=== PATIENT | male | born 1960 | race Caucasian/White ===

== ENCOUNTER 2020-09-17 01:28 | Inpatient (IN) | payer BC ==
[2020-09-17] MEDS ORDERED: ETOMIDATE 2 MG/ML 10 ML VIAL IVP STA (01:29)
[2020-09-17] MEDS ORDERED: SUCCINYLCHOLINE CHLORIDE VIAL 200 MG/10 ML VIAL IV ONE (01:30)
[2020-09-17] MEDS ORDERED: ASPIRIN 300 MG SUPP RECTAL STA (01:38)
[2020-09-17] MEDS ORDERED: MIDAZOLAM 1 MG/ML 5 ML VIAL IV STA ×2 (01:40→02:05)
[2020-09-17] MEDS ORDERED: ASPIRIN 81 MG PO STA (01:41)
[2020-09-17] MEDS ORDERED: NITROGLYCERIN SL TABS 0.4 MG TAB SUBLINGUAL PRN (01:41)
[2020-09-17] MEDS ORDERED: LABETALOL 5 MG/ML VIAL MDV IVP STA (01:46)
--- NOTE | 2020-09-17 01:47 | ED ---
CPR HPI - General Chief Complaint: Cardiac Arrest/CPR Stated Complaint: STEMI Time Seen by Provider: 09/17/20 01:41 Source: EMS, RN notes reviewed, old records reviewed Mode of arrival: EMS Limitations: altered mental status, physical limitation - History of Present Illness Initial Comments: This is a 59-year-old male DF for evaluation patient Dese for evaluation of unresponsive episode cardiac arrest ventricular fibrillation arrest with epi given prior to hospital arrival. Hospital arrival patient is actively breathing with pulse. History obtained from EMS and then later patient's , who states patient was acting fine and normal all day she went to bed with him and he woke up having difficulty breathing having noisy breathing which prompted her to call the ambulance and then he went unresponsive. When she was on the phone with ambulance she did begin bystander CPR at their discretion MD Complaint: found unresponsive, collapsed during rest, unknown (Ventricular fibrillation arrest) -: minute(s) Place: home Bystander CPR Performed: Yes AED Applied by Bystander/Utility Service Worker: Yes Shock Advised: Yes Number of Shocks Delivered: 3 Initial Findings in the Field: unresponsive, no respirations, agonal, no pulse, VTACH/VFIB ROSC in the Field: Yes Associated Injuries: No Associated Symptoms: shortness of breath, sweating Treatments Prior to Arrival: BMV, other airway device, epinephrine mgs # (2) - Related Data Allergies Allergy/AdvReac Type Severity Reaction Status Date / Time Unable to Assess Allergy Verified 09/17/20 01:35 Review of Systems ROS Statement: Those systems with pertinent positive or pertinent negative responses have been documented in the HPI. ROS Other: All systems not noted in ROS Statement are negative. Past Medical History Past Medical History: No Reported History History of Any Multi-Drug Resistant Organisms: Unobtainable Past Surgical History: No Surgical Hx Reported Past Psychological History: Unable to Obtain Smoking Status: Unknown if ever smoked Past Alcohol Use History: Unable to Obtain Past Drug Use History: Unable to Obtain General Exam Limitations: altered mental status, physical limitation General appearance: lethargic, obtunded, in distress, obese Head exam: Present: atraumatic, normocephalic, normal inspection Eye exam: Present: normal appearance, PERRL, EOMI. Absent: scleral icterus, conjunctival injection, periorbital swelling ENT exam: Present: normal exam, mucous membranes moist Neck exam: Present: normal inspection. Absent: tenderness, meningismus, lymphadenopathy Respiratory exam: Present: respiratory distress, rhonchi, decreased breath sounds, prolonged expiratory, other (Agonal respirations). Absent: wheezes, rales, stridor Cardiovascular Exam: Present: normal rhythm, tachycardia, normal heart sounds. Absent: systolic murmur, diastolic murmur, rubs, gallop, clicks GI/Abdominal exam: Present: soft, normal bowel sounds. Absent: distended, tenderness, guarding, rebound, rigid Extremities exam: Present: normal inspection, full ROM, normal capillary refill. Absent: tenderness, pedal edema, joint swelling, calf tenderness Back exam: Present: normal inspection Neurological exam: Present: alert, oriented X3, CN II-XII intact Psychiatric exam: Present: normal affect, normal mood Skin exam: Present: warm, dry, intact, normal color. Absent: rash Course - Reevaluation(s) Reevaluation #1: 09/17/20 01:59 Medical record is reviewed Reevaluation #2: 09/17/20 02:00 STEMI paged on prehospital EKG as well as history of ventricular fibrillation cardiac arrest 09/17/20 02:25 Patient is sent to CT to rule out dissection secondary to elevated blood pressure as well as PE for low oxygen levels Reevaluation #3: 09/17/20 02:25 Dr. Antoine did evaluate patient here in the ER Reevaluation #4: 09/17/20 02:26 Spoke with patient's regarding grave prognosis, questions answered 09/17/20 02:40 Patient remains significantly hypoxic here in the ER Procedures - Intubation Sedative: Versed Paralytic: Succinylcholine Laryngoscope: Wilma Size: 4 ET Tube Size: 8 ET Tube Uncuffed: No Tube Secured Location: teeth Tube Placement Confirmation: visualized tube passing through cords, equal breath sounds bilaterally, no breath sounds over epigastrium Patient Tolerated Procedure: well Intubation Complications: none Medical Decision Making - Medical Decision Making 59 male who presents with unresponsive cardiac arrest patient remains hypoxic despite and PEEP. Patient taken to slab polisher for suspected STEMI secondary to ventricular fibrillation - EKG Data -: EKG Interpreted by Me (EKG is sinus tachycardia 108 SD 186 QRS 170 QTc 5) - Radiology Data Radiology results: report reviewed (Chest x-ray shows positive ET tube placement significant CHF, CTA chest CTA is negative for PE or dissection), image reviewed Critical Care Time Critical Care Time: Yes Total Critical Care Time: 35 Disposition Clinical Impression: Cardiac arrest, Ventricular fibrillation, Congestive heart failure, Hypoxia, Respiratory failure, Acute respiratory failure Disposition: ADMITTED IP TO THIS HOSP Condition: Critical Is patient prescribed a controlled substance at d/c from ED?: No
[2020-09-17 01:54] LABS: Glucose,Whole Blood 314 mg/dL (75-99)
--- NOTE | 2020-09-17 01:55 | XR ---
EXAM: XR Chest, 1 View CLINICAL HISTORY: ITS.REASON XR Reason: Cardiac Arrest TECHNIQUE: Frontal view of the chest. COMPARISON: No previous studies. FINDINGS: Lungs: There is prominence of central pulmonary vasculature. There is interstitial prominence. Presumed subsegmental atelectasis versus pneumonia at the left lung base per Pleural space: Unremarkable. No pneumothorax. Heart: There is cardiomegaly. Mediastinum: Unremarkable. Bones/joints: Unremarkable. Tubes, lines and devices: Endotracheal tube is noted in place with its tip at the thoracic inlet. Other findings: There is hypoaeration. IMPRESSION: 1. Hypoaeration. 2. Cardiomegaly. 3. Findings suggestive of congestive heart failure. 4. Endotracheal tube is noted in place in good position.
[2020-09-17] MEDS ORDERED: IV FLUID CONTINUATION 1,000 ML IV ONE (02:04)
[2020-09-17] MEDS ORDERED: FUROSEMIDE 10 MG/ML 10 ML VIAL IV STA (02:04)
[2020-09-17] MEDS ORDERED: NOREPINEPHRINE 8 MG in SODIUM CHLORIDE 0.9% 250 ML IV ONE (02:07)
--- NOTE | 2020-09-17 02:28 | CT ---
EXAMINATION TYPE: CT angio thor/abd pel aorta DATE OF EXAM: 09/17/2020 COMPARISON: None HISTORY: ams, unresponsive, intubated CT DLP: 3258.9 mGycm Automated exposure control for dose reduction was used. CONTRAST: Performed with IV Contrast, patient injected with 100 mL of Isovue 370. There are 3-D post processed images. There is diffuse pulmonary interstitial and airspace edema. There is atelectasis at the lung bases. H eart is moderately enlarged. There is no pericardial effusion. Exam limited slightly by motion. I see no filling defects in the pulmonary arteries. There are no hil ar masses. There is no mediastinal adenopathy. Thoracic aorta is intact. There is 4.2 cm aneurysm of the ascending aorta. There is no dissection. Liver spleen stomach pancreas appear intact. The bile ducts are not dilated. Gallbladder is slightly contracted. There is no adrenal mass. Kidneys show satisfactory contrast opacification. There is no hydronephrosi s. There is no retroperitoneal adenopathy. Ureters are not dilated. There is Dykes catheter in the ur inary bladder. There is no evidence of bladder mass. There is no sign of inguinal hernia. There is arterial flow in the superior mesenteric artery and celiac artery. There is arterial flow in both renal arteries and the iliac and femoral arteries. I see no evidence of hemodynamic stenosis. T here is no dissection. There is no abdominal aortic aneurysm. There is no free fluid in the pelvis. There is no mesenteric edema. There is no ascites or free air. There is no bowel obstruction. There are spondylotic changes in the thoracic and lumbar spine. There is no compression fracture. There is mild lumbar dextroscoliosis. There are spondylotic changes in the thoracic spine. IMPRESSION: No evidence of pulmonary embolism. No aortic dissection. 4.2 cm aneurysm of the ascending aorta. Moderate pulmonary interstitial and airspace edema. Cardiomegaly. This is consistent with congestive heart failure.
[2020-09-17] MEDS ORDERED: SODIUM CHLORIDE 0.9% IV ONE ×2 (02:37)
[2020-09-17] MEDS ORDERED: NOREPINEPHRINE IV ONE ×2 (02:37)
[2020-09-17 02:46] LABS: Basophils # (A) 0.1 k/uL (0-0.2); Basophils % (A) 1 %; Eosinophils # (A) 0.2 k/uL (0-0.7); Eosinophils % (A) 2 %; HCT 44.5 % (39.0-53.0); HGB 15.2 gm/dL (13.0-17.5); Lymphocytes # (A) 2.7 k/uL (1.0-4.8); Lymphocytes % (A) 27 %; MCH 32.5 pg (25.0-35.0); MCHC 34.2 g/dL (31.0-37.0); MCV 95.1 fL (80.0-100.0); Mean Platelet Volume 8.2; Monocytes # (A) 0.1 k/uL (0-1.0); Monocytes % (A) 1 %; Neutrophils # (A) 6.8 k/uL (1.3-7.7); Neutrophils % (A) 68 %; Platelet Count 202 k/uL (150-450); RBC 4.68 m/uL (4.30-5.90); RDW 13.2 % (11.5-15.5)
[2020-09-17] MEDS ORDERED: ASPIRIN 325 MG TAB ONE (02:49)
[2020-09-17 02:53] LABS: Albumin 3.7 g/dL (3.5-5.0); Calcium 8.4 mg/dL (8.4-10.2); Magnesium 2.4 mg/dL (1.6-2.3); Phosphorus 7.6 mg/dL (2.5-4.5); Potassium 3.5 mmol/L (3.5-5.1); Total Bilirubin 0.4 mg/dL (0.2-1.3); Total Protein 6.1 g/dL (6.3-8.2)
[2020-09-17] MEDS ORDERED: LIDOCAINE 1% INJ 10MG/ML (20 ML MDV) SQ ONE (02:54)
[2020-09-17] MEDS: EPINEPHrine 10 ML SYRINGE (0.1 MG/ML) IV ONE ×4 (02:57→03:21)
[2020-09-17] MEDS ORDERED: IOPAMIDOL-370 100ML BTL INJ ONE ×2 (03:09→04:10)
[2020-09-17] MEDS ORDERED: BIVALIRUDIN BOLUS 250 MG/50 ML IV ONE ×2 (03:10→03:40)
[2020-09-17] MEDS ORDERED: BIVALIRUDIN 250 MG in SODIUM CHLORIDE 0.9% 50 ML IV ONE (03:10)
[2020-09-17] MEDS ORDERED: CLOPIDOGREL 75 MG TAB ONE (03:12)
[2020-09-17] MEDS ORDERED: PROPOFOL 10 MG/ML 100 ML VIAL IV ONE (03:13)
[2020-09-17] MEDS ORDERED: PROPRANOLOL 1 MG/ML 1 ML VIAL IV ONE (03:13)
[2020-09-17] MEDS ORDERED: CLOPIDOGREL 75 MG TAB OG-TUBE ONE (03:19)
[2020-09-17] MEDS ORDERED: ASPIRIN 325 MG TAB OG-TUBE ONE (03:19)
[2020-09-17 03:26] LABS: Creatine Kinase MB 3.9 ng/mL (0.0-2.4)
[2020-09-17] MEDS ORDERED: FUROSEMIDE 10 MG/ML 4 ML VIAL ONE (03:27)
[2020-09-17] MEDS ORDERED: FUROSEMIDE 10 MG/ML 4 ML VIAL IV ONE (03:28)
[2020-09-17] MEDS: FUROSEMIDE 100 MG in SODIUM CHLORIDE 0.9% 90 ML IV SCH ×2 (03:28→10:35)
[2020-09-17] MEDS ORDERED: SODIUM CHLORIDE 0.9% 500 ML 500 ML IV ONE (03:30)
[2020-09-17 03:31] LABS: Troponin I 0.238 ng/mL (0.000-0.034)
[2020-09-17 05:03] LABS: Glucose,Whole Blood 128 mg/dL (75-99)
[2020-09-17 05:30] LABS: ABG HCO3 23 mmol/L (21-25); ABG Oxygen Saturation 99.9 % (94-97); ABG PCO2 52 mmHg (35-45); ABG PH 7.26 (7.35-7.45); ABG PO2 233 mmHg (83-108); ABG TCO2 25 mmol/L (19-24); Allen Test Performed? Yes
[2020-09-17 06:04] LABS: Basophils % (A) 0 %; Eosinophils # (A) 0.1 k/uL (0-0.7); Eosinophils % (A) 1 %; HCT 45.2 % (39.0-53.0); HGB 15.4 gm/dL (13.0-17.5); Lymphocytes # (A) 1.3 k/uL (1.0-4.8); Lymphocytes % (A) 12 %; MCHC 34.1 g/dL (31.0-37.0); MCV 93.8 fL (80.0-100.0); Monocytes # (A) 0.6 k/uL (0-1.0); Monocytes % (A) 5 %; Neutrophils # (A) 9.2 k/uL (1.3-7.7); Neutrophils % (A) 81 %; Platelet Count 236 k/uL (150-450); RBC 4.82 m/uL (4.30-5.90); RDW 13.2 % (11.5-15.5); WBC 11.4 k/uL (3.8-10.6)
[2020-09-17 06:19] LABS: INR 1.5 (<1.2); Prothrombin Time 15.4 sec (9.0-12.0)
[2020-09-17 06:21] LABS: C Reactive Protein 0.9 mg/dL (<1.0); Calcium 8.6 mg/dL (8.4-10.2); Total Bilirubin 0.9 mg/dL (0.2-1.3)
[2020-09-17] MEDS ORDERED: NALOXONE 0.4 MG/ML 1 ML VIAL IV PRN (06:24)
[2020-09-17 06:29] LABS: Albumin 3.9 g/dL (3.5-5.0); Potassium 3.8 mmol/L (3.5-5.1); Total Protein 6.5 g/dL (6.3-8.2)
[2020-09-17] MEDS: SODIUM CHLORIDE 0.9% 1,000 ML IV SCH ×4 (06:31→21:41)
[2020-09-17] MEDS ORDERED: HEPARIN SOD,PORK IN 0.45% NACL 25,000 UNIT in 0.45% NACL 1 250ML.BAG IV SCH (06:45)
[2020-09-17 07:00] LABS: Magnesium 2.4 mg/dL (1.6-2.3); Phosphorus 6.6 mg/dL (2.5-4.5)
[2020-09-17] MEDS: HEPARIN SODIUM,PORCINE 12,500 UNIT in DEXTROSE 5% IN WATER 500 ML IV SCH ×2 (07:48)
[2020-09-17 07:55] LABS: ABG Base Excess -2.6 mmol/L; ABG HCO3 23 mmol/L (21-25); ABG Oxygen Saturation 99.2 % (94-97); ABG PCO2 40 mmHg (35-45); ABG PH 7.36 (7.35-7.45); ABG PO2 127 mmHg (83-108); ABG TCO2 24 mmol/L (19-24); Allen Test Performed? Yes
[2020-09-17] MEDS: NOREPINEPHRINE 8 MG in SODIUM CHLORIDE 0.9% 250 ML IV SCH (08:05)
[2020-09-17] MEDS: CHLORHEXIDINE GLUCONATE 15 ML CUP MUCOUS MEM SCH ×2 (09:17→20:49)
[2020-09-17] MEDS: CLOPIDOGREL 75 MG TAB PO SCH (09:17)
[2020-09-17] MEDS: ATORVASTATIN 80 MG TAB PO SCH (09:17)
--- NOTE | 2020-09-17 10:15 | P.CNNES ---
History of Present Illness Consult date: 09/17/20 Requesting physician: Zoë Adhikari Reason for Consult: rule out anoxic encephalopathy History of Present Illness: This is a 59-year-old gentleman who presented to the emergency department on 09/17/2020 via EMS after the patient had a cardiac arrest. Some of the history is obtained from medical record. History is obtained from medical records and patient's nurse. Per the ED note, the notified the ED team that the patient was active in the appropriate and was normal all day and then when she woke him up he was having difficulty breathing and his breathing was "very noisy". As a result she called the ambulance and the patient was unresponsive. Per the patient nurse she stated that the did CPR for 10 minutes prior to ambulance arrival and unsure of how long CPR was performed by ambulance. Per ED note the patient had cardiac arrest with ventricular fibrillation and was give epinephrine prior to arrival to the hospital. The nurse stated he received two shocks and two epinephrine. He was intubated for airway protection. Home medication per EMR is Synthroid, lisinopril/hydrochlorothiazide, meloxicam. He was taken for cardiac cath in our facility and was notified by the primary team he had two cardiac stent and was placed on Impella. Heparin drip was started and the patient was started as well and aspirin 81, Plavix 75. She was given aspirin 300 mg in the ED. Per the nurse, he is on Propofol 40mcg/kg/min and she said once the sedation was off he was moving all extremities and seems somewhat restless. Some other workup in the hospital consisted of: Initial vital signs: Blood pressure of 200/128 with a heart rate of 100 but then the repeated blood pressure is 74/48 with a heart rate of 98. Pulse ox of 71 on mechanical ventilation of a fire 200% then the pulse ox dropped to 65%. Temperature is 99.5 Fahrenheit. Respiratory rate of 18 and the most recent respiratory rate is 24. EKG was reported as suspect arm bleed reversal, interpretation assumes no reversal. Sinus tachycardia. Nonspecific intraventricular block. Abnormal EKG CBC with differential is unremarkable. The most recent white blood cells 11.4 possibly reactive. Troponin is a 0.238 and the most recent troponin is 3.51 Initial POC glucose is 314 which is elevated, creatinine is 1.26 which is also elevated, plasma lactic acid is 4.7 which is elevated that. Phosphorus is 7.6, magnesium is 2.4, AST is 292 and the ALT of 298 which are elevated. CK is 213 which is mildly elevated but not remarkable. Otherwise potassium 3.5, calcium is 8.4 which are normal. Initial coagulation study: PT of 15.4, INR 1.5, PTT of 52.0 and d-dimer is more than 34. He had CT angio of the thorax/abd/pelvis was reported as no evidence of pulmonary embolism. No aortic dissection. 4.2 cm aneurysm of the ascending aor ta. Moderate pulmonary interstitial and airspace edema. Cardiomegaly. This is consistent with congestive heart failure. Review of Systems Review of system is limited but the parent positive and negative aspiration. Past Medical History Past Medical History: No Reported History History of Any Multi-Drug Resistant Organisms: Unobtainable Past Surgical History: No Surgical Hx Reported Past Psychological History: Unable to Obtain Smoking Status: Unknown if ever smoked Past Alcohol Use History: Unable to Obtain Past Drug Use History: Unable to Obtain Medications and Allergies Home Medications Medication Instructions Recorded Confirmed Type Acetaminophen/Diphenhydramine 2 tab PO HS 09/17/20 09/17/20 History [Tylenol PM 500-25mg] Levothyroxine Sodium [Synthroid] 50 mcg PO DAILY 09/17/20 09/17/20 History Lisinopril-Hctz 20-12.5 mg 1 tab PO DAILY 09/17/20 09/17/20 History [Zestoretic 20-12.5] Meloxicam [Mobic] 7.5 mg PO DAILY 09/17/20 09/17/20 History Allergies Allergy/AdvReac Type Severity Reaction Status Date / Time No Known Allergies Allergy Unverified 09/17/20 09:18 Physical Examination - Vital Signs Vital Signs: Vital Signs Temp Pulse Resp BP Pulse Ox 09/17/20 09:00 71 24 88/69 96 09/17/20 08:00 99.5 F 70 24 101/76 97 09/17/20 07:00 72 23 88/63 96 09/17/20 06:00 66 24 92/59 95 09/17/20 05:01 71 18 97 09/17/20 02:05 98 74/48 65 L 09/17/20 01:45 100 200/128 71 L 06/28/21 01:31 71 L Intake and Output 06/27/21 06/28/21 06/28/21 22:59 06:59 14:59 Intake Total 780.7 528.665 Output Total 125 525 Balance 655.7 3.665 Intake: IV 780.7 510 0.9 340 510 Intake, IV Titration 18.665 Amount Norepinephrine 8 mg In 0.702 Sodium Chloride 0.9% 250 ml @ 0.05 MCG/KG/MIN 13. 166 mls/hr IV .[id number] JORDANA Rx#:[id number] propofoL 1,000 mg In 17.963 Empty Bag 1 bag @ Titrate IV .Q0M JORDANA Rx#: [id number] Output: Urine 125 525 Other: Voiding Method Indwelling Catheter Weight 136.078 kg ABP, PAP, CO, CI - Last 8 Hours Arterial Blood Pressure 113/81 Arterial Blood Pressure 103/68 Arterial Blood Pressure 106/74 Arterial Blood Pressure 87/65 GENERAL: The patient is lying in bed, obese and does not seem in acute distress. CHEST: The heart rate is regular rate rhythm. No murmurs to auscultation. Has Impella. LUNG: Clear to auscultation bilaterally no wheezing noted throughout. Not labored breathing. He is intubated and on ventilator. A/c is at 24 but breathing at 26. ABDOMEN/GI: Bowel sounds present in all 4 quadrants. No tenderness to palpation throughout. NEUROLOGICAL: Is limited since is on IV propofol 40mcg/kg/min (briefly turned off for examination) and is intubated on ventilaror . Higher mental function: The patient is comatose GCS 7 (E1, VT1, M5). The patient is not following command or attempting to verbalize. Cranial nerves: I had to manually open the eyes. The primary gaze is midline. The pupils are round, equal and reactive to light. The pupils are around 3-4mm bilaterally. +ve corneal reflex bilaterally. No facial weakness noted. Positive vestibular occuloreflex. Positive gag reflex. Is breathing over the vent. Motor: Gait is deferred because of condition. The strength is hard to assess but with painful stimuli he was moving the left side above gravity and was getting agitated so had to restart propofol. He was frowning over the right to painful stimuli. Good motor stregnth could not be assess because of condition. Normal tone and bulk. No spontaneous movement. Cerebellum: Could not assess. Sensation: He frowns to painful stimuli throughout. Reflexes (right/left): 1+ throughout. Plantars are downgoing bilaterally. Results - Laboratory Findings CBC and BMP: 09/17/20 11:50 09/17/20 05:35 Abnormal Lab Findings: Abnormal Labs 09/17/20 09/17/20 09/17/20 01:45 02:23 02:23 WBC Neutrophils # PT INR APTT D-Dimer ABG pH ABG pCO2 ABG pO2 ABG Total CO2 ABG O2 Saturation BUN 21 H Creatinine 1.26 H Glucose 301 H POC Glucose (mg/dL) 314 H Plasma Lactic Acid Marcos 4.7 H* Phosphorus 7.6 H Magnesium 2.4 H AST 292 H ALT 287 H Lactate Dehydrogenase Creatine Kinase 213 H CK-MB (CK-2) Troponin I Total Protein 6.1 L 09/17/20 09/17/20 09/17/20 02:23 05:01 05:10 WBC Neutrophils # PT INR APTT D-Dimer ABG pH 7.26 L ABG pCO2 52 H ABG pO2 233 H ABG Total CO2 25 H ABG O2 Saturation 99.9 H BUN Creatinine Glucose POC Glucose (mg/dL) 128 H Plasma Lactic Acid Marcos Phosphorus Magnesium AST ALT Lactate Dehydrogenase Creatine Kinase CK-MB (CK-2) 3.9 H Troponin I 0.238 H* Total Protein 09/17/20 09/17/20 09/17/20 05:35 05:35 05:35 WBC Neutrophils # PT 15.4 H INR 1.5 H APTT 52.0 H D-Dimer >34.10 H ABG pH ABG pCO2 ABG pO2 ABG Total CO2 ABG O2 Saturation BUN 25 H Creatinine 1.32 H Glucose 113 H POC Glucose (mg/dL) Plasma Lactic Acid Marcos Phosphorus Magnesium AST 347 H ALT 296 H Lactate Dehydrogenase 2314 H Creatine Kinase CK-MB (CK-2) Troponin I 3.510 H* Total Protein 09/17/20 09/17/20 09/17/20 05:35 05:35 07:47 WBC 11.4 H Neutrophils # 9.2 H PT INR APTT D-Dimer ABG pH ABG pCO2 ABG pO2 127 H ABG Total CO2 ABG O2 Saturation 99.2 H BUN Creatinine Glucose POC Glucose (mg/dL) Plasma Lactic Acid Marcos Phosphorus 6.6 H Magnesium 2.4 H AST ALT Lactate Dehydrogenase Creatine Kinase CK-MB (CK-2) Troponin I Total Protein Assessment and Plan Assessment: * Encephalopathy due to anoxia (cardiac arrest and unsure exact down for, but at least 10 minutes+). Also component of encephalopathy due to medication effect (propofol) and metabolic encpehalopathy (Acute kidney injury, elevated LFT's, elevated sugar). Per nurse once off sedation he is moving all extremities. * Cardiac arrest (initial rhythm is V-fib) * STEMI s/p PCI to circumflex and impella placement * Acute kidney injury * Elevated liver function test (with AST 292 and ALT 287) likely reactive * Elevated sugar * Congestive heart failure * Cardiomegaly Plan: A stat EEG is ordered by the ICU team. I will not start the patient on antiep ileptic drugs unless there is epileptiform discharges or seizure on the EEG. I ordered a stat CT of the head. Per the patient's nurse the patient is the unstable at this moment so I'll attempt to get it's once the patient is more stable. Placed him on Q1 hour neuro checks. Ordered ammonia level. 2-D echo is ordered and is pending. Cardiology is on board. Will defer the rest of the medical management to the ICU team and primary team. The condition is very guarded. The plan is discussed with the primary team and nurse. Thank you for the consultation. Dr. Carlson will take over neurology service tomorrow AM. Fadi Johnson MD Neuro-Hospitalist Time with Patient: Greater than 30
--- NOTE | 2020-09-17 10:30 | P.HPIM ---
History of Present Illness H&P Date: 09/17/20 Chief Complaint: Cardiac arrest 59 year old man with history of HTN, hypothyroidism presented with cardiac arrest in the field. Patient is intubated and sedated status post left heart cath with impella placement, so history is provided by chart review. From my understanding, he obtained approximately 10 minutes CPR in the field, was in V. fib arrest, requiring shocks x3/epi. Patient arrived to the hospital with a pulse and breathing on his own. However, he was quite hypoxic, requiring intubation. EKG demonstrated ST elevation and patient was taken emergently to the Preschool Teacher. While in the operating suite, patient received 2 drug-eluting stents to the OM1, as well as impella for mechanical support. Patient was thereafter placed in the intensive care unit with mechanical ventilation. Initial neurological exam off sedation demonstrated the patient was not fol lowing commands, however, moving all extremities, positive gag, positive cough reflexes. Upon my examination, patient was on the low dose of Levothroid, 40 mics of propofol, and impella support. Mechanical support at before meals, FiO2 40%, PEEP 5, tidal volume 450. Patient was afebrile, blood pressure between 99-100/70-76, heart rate 70. CBC demonstrated mild leukocytosis, d-dimer was greater than 34.1. Chemistries demonstrated acute kidney injury with a creatinine of 1.3, LFTs demonstrate hepatic dysfunction and hepatocellular injury pattern with AST/ALT of 347/296, alkaline phosphatase of 57. Troponin was 3.5. EKG demonstrated sinus tachycardia with left bundle-branch block. Chest x-ray demonstrated cardiomegaly with findings suggestive of congestive heart failure. Review of Systems Review systems could not be completed due to patient being intubated and sedated Past Medical History Past Medical History: No Reported History History of Any Multi-Drug Resistant Organisms: Unobtainable Past Surgical History: No Surgical Hx Reported Past Psychological History: Unable to Obtain Smoking Status: Unknown if ever smoked Past Alcohol Use History: Unable to Obtain Past Drug Use History: Unable to Obtain Medications and Allergies Home Medications Medication Instructions Recorded Confirmed Type Acetaminophen/Diphenhydramine 2 tab PO HS 09/17/20 09/17/20 History [Tylenol PM 500-25mg] Levothyroxine Sodium [Synthroid] 50 mcg PO DAILY 09/17/20 09/17/20 History Lisinopril-Hctz 20-12.5 mg 1 tab PO DAILY 09/17/20 09/17/20 History [Zestoretic 20-12.5] Meloxicam [Mobic] 7.5 mg PO DAILY 09/17/20 09/17/20 History Allergies Allergy/AdvReac Type Severity Reaction Status Date / Time No Known Allergies Allergy Unverified 09/17/20 09:18 Physical Exam Osteopathic Statement: *. No significant issues noted on an osteopathic s tructural exam other than those noted in the History and Physical/Consult. Vitals: Vital Signs Temp Pulse Resp BP Pulse Ox 09/17/20 10:00 73 24 111/82 95 09/17/20 09:00 71 24 88/69 96 09/17/20 08:00 99.5 F 70 24 101/76 97 09/17/20 07:00 72 23 88/63 96 09/17/20 06:00 66 24 92/59 95 09/17/20 05:01 71 18 97 09/17/20 02:05 98 74/48 65 L 09/17/20 01:45 100 200/128 71 L 09/17/20 01:31 71 L Intake and Output 09/16/20 09/17/20 09/17/20 22:59 06:59 14:59 Intake Total 780.7 698.665 Output Total 125 805 Balance 655.7 -106.335 Intake: IV 780.7 680 0.9 340 680 Intake, IV Titration 18.665 Amount Norepinephrine 8 mg In 0.702 Sodium Chloride 0.9% 250 ml @ 0.05 MCG/KG/MIN 13. 166 mls/hr IV .[id number] [facility] Rx#:[id number] propofoL 1,000 mg In 17.963 Empty Bag 1 bag @ Titrate IV .Q0M [facility] Rx#: [id number] Output: Urine 125 805 Other: Voiding Method Indwelling Catheter Weight 136.078 kg ABP, PAP, CO, CI - Last 8 Hours Arterial Blood Pressure 112/75 Arterial Blood Pressure 113/81 Arterial Blood Pressure 103/68 Arterial Blood Pressure 106/74 Arterial Blood Pressure 87/65 Gen: Intubated, sedated HEENT: normocephalic, atraumatic, good hearing acuity, moist mucous membranes Resp: Vent: AC - FiO2 40%, PEEP 5, tidal volume 500, respiratory rate 24 CVS: good distal perfusion x 4, tachycardic GI: soft, NTTP, ND : no SPT, no CVAT, garcia catheter is present with grossly hemorrhagic urine MSK: no pitting edema, no clubbing Neuro: moving all extremities, positive gag, positive cough, positive corneal, pupils equal and reactive Results CBC & Chem 7: 09/17/20 05:35 09/17/20 05:35 Labs: Abnormal Lab Results - Last 24 Hours (Table) 09/17/20 09/17/20 09/17/20 Range/Units 01:45 02:23 02:23 WBC (3.8-10.6) k/uL Neutrophils # (1.3-7.7) k/uL PT (9.0-12.0) sec INR (<1.2) APTT (22.0-30.0) sec D-Dimer (<0.60) mg/L FEU ABG pH (7.35-7.45) ABG pCO2 (35-45) mmHg ABG pO2 (83-108) mmHg ABG Total CO2 (19-24) mmol/L ABG O2 Saturation (94-97) % BUN 21 H (9-20) mg/dL Creatinine 1.26 H (0.66-1.25) mg/dL Glucose 301 H (74-99) mg/dL POC Glucose (mg/dL) 314 H (75-99) mg/dL Plasma Lactic Acid Marcos 4.7 H* (0.7-2.0) mmol/L Phosphorus 7.6 H (2.5-4.5) mg/dL Magnesium 2.4 H (1.6-2.3) mg/dL AST 292 H (17-59) U/L ALT 287 H (4-49) U/L Lactate Dehydrogenase (313-618) U/L Creatine Kinase 213 H (55-170) U/L CK-MB (CK-2) (0.0-2.4) ng/mL Troponin I (0.000-0.034) ng/mL Total Protein 6.1 L (6.3-8.2) g/dL 09/17/20 09/17/20 09/17/20 Range/Units 02:23 05:01 05:10 WBC (3.8-10.6) k/uL Neutrophils # (1.3-7.7) k/uL PT (9.0-12.0) sec INR (<1.2) APTT (22.0-30.0) sec D-Dimer (<0.60) mg/L FEU ABG pH 7.26 L (7.35-7.45) ABG pCO2 52 H (35-45) mmHg ABG pO2 233 H (83-108) mmHg ABG Total CO2 25 H (19-24) mmol/L ABG O2 Saturation 99.9 H (94-97) % BUN (9-20) mg/dL Creatinine (0.66-1.25) mg/dL Glucose (74-99) mg/dL POC Glucose (mg/dL) 128 H (75-99) mg/dL Plasma Lactic Acid Marcos (0.7-2.0) mmol/L Phosphorus (2.5-4.5) mg/dL Magnesium (1.6-2.3) mg/dL AST (17-59) U/L ALT (4-49) U/L Lactate Dehydrogenase (313-618) U/L Creatine Kinase (55-170) U/L CK-MB (CK-2) 3.9 H (0.0-2.4) ng/mL Troponin I 0.238 H* (0.000-0.034) ng/mL Total Protein (6.3-8.2) g/dL 09/17/20 09/17/20 09/17/20 Range/Units 05:35 05:35 05:35 WBC (3.8-10.6) k/uL Neutrophils # (1.3-7.7) k/uL PT 15.4 H (9.0-12.0) sec INR 1.5 H (<1.2) APTT 52.0 H (22.0-30.0) sec D-Dimer >34.10 H (<0.60) mg/L FEU ABG pH (7.35-7.45) ABG pCO2 (35-45) mmHg ABG pO2 (83-108) mmHg ABG Total CO2 (19-24) mmol/L ABG O2 Saturation (94-97) % BUN 25 H (9-20) mg/dL Creatinine 1.32 H (0.66-1.25) mg/dL Glucose 113 H (74-99) mg/dL POC Glucose (mg/dL) (75-99) mg/dL Plasma Lactic Acid Marcos (0.7-2.0) mmol/L Phosphorus (2.5-4.5) mg/dL Magnesium (1.6-2.3) mg/dL AST 347 H (17-59) U/L ALT 296 H (4-49) U/L Lactate Dehydrogenase 2314 H (313-618) U/L Creatine Kinase (55-170) U/L CK-MB (CK-2) (0.0-2.4) ng/mL Troponin I 3.510 H* (0.000-0.034) ng/mL Total Protein (6.3-8.2) g/dL 09/17/20 09/17/20 09/17/20 Range/Units 05:35 05:35 07:47 WBC 11.4 H (3.8-10.6) k/uL Neutrophils # 9.2 H (1.3-7.7) k/uL PT (9.0-12.0) sec INR (<1.2) APTT (22.0-30.0) sec D-Dimer (<0.60) mg/L FEU ABG pH (7.35-7.45) ABG pCO2 (35-45) mmHg ABG pO2 127 H (83-108) mmHg ABG Total CO2 (19-24) mmol/L ABG O2 Saturation 99.2 H (94-97) % BUN (9-20) mg/dL Creatinine (0.66-1.25) mg/dL Glucose (74-99) mg/dL POC Glucose (mg/dL) (75-99) mg/dL Plasma Lactic Acid Marcos (0.7-2.0) mmol/L Phosphorus 6.6 H (2.5-4.5) mg/dL Magnesium 2.4 H (1.6-2.3) mg/dL AST (17-59) U/L ALT (4-49) U/L Lactate Dehydrogenase (313-618) U/L Creatine Kinase (55-170) U/L CK-MB (CK-2) (0.0-2.4) ng/mL Troponin I (0.000-0.034) ng/mL Total Protein (6.3-8.2) g/dL Assessment and Plan Assessment: Cardiac arrest secondary to ventricular fibrillation ST elevation MO Acute systolic congestive heart failure -Admit to inpatient, telemetry; ICU level care -Pulmonary consult for ICU management -Cardiology consult for ST elevation MO and heart failure -Neurology consult for post-arrest anoxia -Trend troponins -Impala support -Levophed for map greater than 65 -Propofol for sedation -Aspirin, Plavix, heparin drip -Statin -I/os, daily weights -Echocardiogram, pending -Lasix drip -EEG pending -CT brain pending Gross hematuria -Could be secondary to traumatic Garcia placement, we'll reevaluate tomorrow a.m. -CBC daily -Consider urology consult if no resolution in 24 hours Hypertension Hypothyroidism -Home medications reviewed and reconciled -Continue levothyroxine -Hold home with lisinoprilHCTZ Patient is a full code is the POA DVT prophylaxis is covered with heparin drip
--- NOTE | 2020-09-17 10:32 | P.CNPUL ---
History of Present Illness Consult date: 09/17/20 Requesting physician: Magaly Menendez Reason for consult: other Chief complaint: [id number] cardiopulmonary arrest, STEMI History of present illness: Pulmonary consult dated 09/17/2020. 59-year-old male who apparently had an [id number] cardiac arrest. EMS was called. His provided is danger chest compressions. When EMS arrived, the patient was in ventricular fibrillation arrest. The patient apparently started having chest compressions, received 3 defibrillations, and 2 rounds of epinephrine. The patient was apparently then intubated in the emergency room by the emergency room physician. The patient was taken to the Medical Office Worker. The patient had a stent placed in his circumflex coronary artery. Currently, he's on the ventilator. He is on the volume assist control mode, tidal volume 500, rate 24, FiO2 40%, PEEP of 8. Blood gases on the same settings, except 50%, s howed PaO2 of 127 pCO2 of 40, and a pH 7.36. The patient remains on a Lasix drip at 10 mg an hour saline at 150 mL an hour, propofol at 40 mcg/kg/m, norepinephrine at 2 mcg/m. We are going to do a daily interruption of sedation to evaluate the patient's neurologic status. In addition, the patient will need an EEG, and neurology consultation. We'll attempt to wean the norepinephrine. White count 11.4, hemoglobin, hematocrit, and platelet count all normal. PT 15.4, INR 1.5, PTT 52, and d-dimer greater than 34.10. Sodium 141, potassium 3.8, chlorides 107, CO2 23, anion gap 11, BUN 25, and creatinine 1.32. AST 347, ALT is 296, and LDH 2314. Troponins were 0.238 and 3.510. Chest x-rays consistent with cardiomegaly, and CHF. Review of Systems Review of systems cannot be obtained. The patient is currently sedated and mechanically ventilated. Past Medical History Past Medical History: No Reported History History of Any Multi-Drug Resistant Organisms: Unobtainable Past Surgical History: No Surgical Hx Reported Past Psychological History: Unable to Obtain Smoking Status: Unknown if ever smoked Past Alcohol Use History: Unable to Obtain Past Drug Use History: Unable to Obtain Medications and Allergies Home Medications Medication Instructions Recorded Confirmed Type Acetaminophen/Diphenhydramine 2 tab PO HS 09/17/20 09/17/20 History [Tylenol PM 500-25mg] Levothyroxine Sodium [Synthroid] 50 mcg PO DAILY 09/17/20 09/17/20 History Lisinopril-Hctz 20-12.5 mg 1 tab PO DAILY 09/17/20 09/17/20 History [Zestoretic 20-12.5] Meloxicam [Mobic] 7.5 mg PO DAILY 09/17/20 09/17/20 History Allergies Allergy/AdvReac Type Severity Reaction Status Date / Time No Known Allergies Allergy Unverified 09/17/20 09:18 Physical Exam Osteopathic Statement: *. No significant issues noted on an osteopathic structural exam other than those noted in the History and Physical/Consult. Vitals: Vital Signs Temp Pulse Resp BP Pulse Ox 09/17/20 10:00 73 24 111/82 95 09/17/20 09:00 71 24 88/69 96 09/17/20 08:00 99.5 F 70 24 101/76 97 09/17/20 07:00 72 23 88/63 96 09/17/20 06:00 66 24 92/59 95 09/17/20 05:01 71 18 97 09/17/20 02:05 98 74/48 65 L 09/17/20 01:45 100 200/128 71 L 09/17/20 01:31 71 L Intake and Output 09/16/20 09/17/20 09/17/20 22:59 06:59 14:59 Intake Total 780.7 744.932 Output Total 125 805 Balance 655.7 -60.068 Intake: IV 780.7 680 0.9 340 680 Intake, IV Titration 64.932 Amount Norepinephrine 8 mg In 0.702 Sodium Chloride 0.9% 250 ml @ 0.05 MCG/KG/MIN 13. 166 mls/hr IV .[id number] [facility] Rx#:[id number] propofoL 1,000 mg In 64.230 Empty Bag 1 bag @ Titrate IV .Q0M [facility] Rx#: [id number] Output: Urine 125 805 Other: Voiding Method Indwelling Catheter Weight 136.078 kg ABP, PAP, CO, CI - Last 8 Hours Arterial Blood Pressure 112/75 Arterial Blood Pressure 113/81 Arterial Blood Pressure 103/68 Arterial Blood Pressure 106/74 Arterial Blood Pressure 87/65 No acute distress, sedated, with possible anoxic brain injury. The patient has an orally placed endotracheal tube. HEENT examination is grossly unremarkable. Pupils pinpoint and reactive. Neck supple. Full range of motion. No adenopathy thyromegaly or neck vein distention. Cardiovascular examination reveals regular rhythm rate. S1-S2 normal. No S3 or S4. No discernible murmur noted. Heart sounds distant. Heart rate 73 bpm. Lungs reveal scattered rhonchi and crackles. Breath sounds equal. No wheezes. Abdomen soft but without bowel sounds. No obvious masses or tenderness. Extremities are intact. No cyanosis clubbing or edema. Skin is without rash or lesion. Neurologic examination is brief but nonfocal. The patient does have a gag reflex. Results - Laboratory Findings CBC and BMP: 09/17/20 05:35 09/17/20 05:35 ABG ABG pH 7.36 (7.35-7.45) 09/17/20 07:47 ABG pCO2 40 mmHg (35-45) 09/17/20 07:47 ABG pO2 127 mmHg (83-108) H 09/17/20 07:47 ABG O2 Saturation 99.2 % (94-97) H 09/17/20 07:47 PT/INR, D-dimer PT 15.4 sec (9.0-12.0) H 09/17/20 05:35 INR 1.5 (<1.2) H 09/17/20 05:35 D-Dimer >34.10 mg/L FEU (<0.60) H 09/17/20 05:35 Abnormal lab findings: Abnormal Labs 09/17/20 09/17/20 09/17/20 01:45 02:23 02:23 WBC Neutrophils # PT INR APTT D-Dimer ABG pH ABG pCO2 ABG pO2 ABG Total CO2 ABG O2 Saturation BUN 21 H Creatinine 1.26 H Glucose 301 H POC Glucose (mg/dL) 314 H Plasma Lactic Acid Marcos 4.7 H* Phosphorus 7.6 H Magnesium 2.4 H AST 292 H ALT 287 H Lactate Dehydrogenase Creatine Kinase 213 H CK-MB (CK-2) Troponin I Total Protein 6.1 L 09/17/20 09/17/20 09/17/20 02:23 05:01 05:10 WBC Neutrophils # PT INR APTT D-Dimer ABG pH 7.26 L ABG pCO2 52 H ABG pO2 233 H ABG Total CO2 25 H ABG O2 Saturation 99.9 H BUN Creatinine Glucose POC Glucose (mg/dL) 128 H Plasma Lactic Acid Marcos Phosphorus Magnesium AST ALT Lactate Dehydrogenase Creatine Kinase CK-MB (CK-2) 3.9 H Troponin I 0.238 H* Total Protein 09/17/20 09/17/20 09/17/20 05:35 05:35 05:35 WBC Neutrophils # PT 15.4 H INR 1.5 H APTT 52.0 H D-Dimer >34.10 H ABG pH ABG pCO2 ABG pO2 ABG Total CO2 ABG O2 Saturation BUN 25 H Creatinine 1.32 H Glucose 113 H POC Glucose (mg/dL) Plasma Lactic Acid Marcos Phosphorus Magnesium AST 347 H ALT 296 H Lactate Dehydrogenase 2314 H Creatine Kinase CK-MB (CK-2) Troponin I 3.510 H* Total Protein 09/17/20 09/17/20 09/17/20 05:35 05:35 07:47 WBC 11.4 H Neutrophils # 9.2 H PT INR APTT D-Dimer ABG pH ABG pCO2 ABG pO2 127 H ABG Total CO2 ABG O2 Saturation 99.2 H BUN Creatinine Glucose POC Glucose (mg/dL) Plasma Lactic Acid Marcos Phosphorus 6.6 H Magnesium 2.4 H AST ALT Lactate Dehydrogenase Creatine Kinase CK-MB (CK-2) Troponin I Total Protein - Diagnostic Findings Chest x-ray: image reviewed Assessment and Plan Assessment: Status post [id number] cardiopulmonary arrest, secondary to ST segment elevation myocardial infarction, status post cardiopulmonary resuscitation with return of spontaneous circulation, and stent placement in the circumflex coronary artery, and placement of Impella device. Rule out anoxic brain injury. Congestive hepatopathy and shock liver. History of hypertension. History of hypothyroidism. Plan: Plan dated 09/17/2020. We will attempt to wean the patient off the norepinephrine. We'll also do a daily interruption of sedation. In addition, we'll try to turn down the IV fluids. Chest x-ray clearly shows congestive heart failure. In addition, the p atient will have a neurology consult and EEG. Additional recommendations and suggestions are forthcoming. Prognosis is very guarded. We will continue to follow and make recommendations where appropriate. Time with Patient: Greater than 30
--- NOTE | 2020-09-17 11:27 | XR ---
EXAMINATION TYPE: XR chest 1V portable DATE OF EXAM: 09/17/2020 Comparison: 09/17/2020 Clinical History: 59-year-old male impella placement Findings: ET tube tip at the level of the medial clavicular heads. NG tube courses below the diaphragm. Heart i s borderline enlarged. Improved bilateral airspace disease. Mild patchy density remains in the retroc ardiac region and left base. The device is demonstrated. The radiopaque pump motor is very close to the expected region of the aor tic valve. Impression: Interval improvement in the patient's pulmonary edema with Impella device in place. The radiopaque pu mp motor is very close to the expected region of the aortic valve.
[2020-09-17 11:36] LABS: Appearance,Urine Cloudy (Clear); Bacteria,Urine Rare /hpf; Bilirubin,Urine Negative (Negative); Blood,Urine Large (Negative); Color,Urine Red; Glucose,Urine (UA) Negative (Negative); Ketones,Urine Negative (Negative); Leukocyte Esterase,Urine Trace (Negative); Mucus,Urine Rare /hpf; Nitrite,Urine Negative (Negative); PH, Urine 5.5 (5.0-8.0); Protein,Urine 2+ (Negative); RBC,Urine 1 /hpf (0-5); Specific Gravity,Urine 1.021 (1.001-1.035); Squamous Epithelial Cell,Urine <1 /hpf (0-4); Urobilinogen,Urine <2.0 mg/dL (<2.0); WBC,Urine 5 /hpf (0-5)
[2020-09-17] MEDS: IPRATROPIUM-ALBUTEROL 3 ML NEB INHALATION SCH ×3 (12:01→20:35)
[2020-09-17 12:06] LABS: HCT 41.7 % (39.0-53.0); HGB 14.9 gm/dL (13.0-17.5); MCHC 35.6 g/dL (31.0-37.0); MCV 92.7 fL (80.0-100.0); Mean Platelet Volume 8.4; Platelet Count 189 k/uL (150-450); RDW 13.2 % (11.5-15.5)
--- NOTE | 2020-09-17 13:45 | CONS ---
CONSULTATION HISTORY OF PRESENT ILLNESS: This is a 59-year-old gentleman was brought in by EMS with a cardiac arrest. Apparently, his gave some of this history to me directly. The patient was sleeping but was breathing differently and seemed to be unresponsive and his is a light sleeper, so she turned around and tried to should shake him and move him and finally he said I am awake, but then after that, he became unresponsive and stiffened up. She called 911. She brought him down to the floor, tried to do CPR and in about 10 minutes, EMS arrived saw that he was in a ventricular fibrillation, shocked him and they had some pulse back. They tried to intubate him and had difficulty intubation and brought him to the emergency room with a trumpet tube and in the ER, he was intubated by Dr. Sweeney. The patient was hypertensive and after intubation, his pressure was high. He was given labetalol. He went for a CT scan which revealed pulmonary edema. No evidence of any pulmonary embolism or aortic pathology. I came to see the patient after he came back from the chemical laboratory assistant. His blood pressure was about 107 and labetalol which was given for high systolic pressure. After giving some epinephrine, his pressure went up very high and then he received labetalol. I initiated a Levophed drip and talked to the and explained to her that the prognosis appears to be poor. There is a long hypoxic down time from that time she noted that he was not breathing well. This could mean that there could be significant anoxic injury, but given his young age and relatively decent health, I will proceed with coronary angiography to see if there is any obstructive CAD as a cause of his cardiac arrest. EKG revealed a wide QRS rhythm, appears to be idioventricular rhythm. PHYSICAL EXAMINATION: Physical exam revealed blood pressure 110/70, pulse rate is about 100, 80 ventricular rhythm, wide QRS rhythm. Oxygen saturation is only 57% after being intubated with 100% FiO2 and PEEP. On examination S1, S2 heard normally. Lungs reveal bilateral rales. Abdomen is distended, nontender. Lower extremities reveal diminished pulses. Central nervous system assessment was not performed. IMPRESSION: 1. Resuscitated cardiac arrest with prolonged hypoxic down time. 2. History of hypertension. 3. Probable acute myocardial infarction but EKG does not suggest the same. RECOMMENDATIONS: I will take the patient to the chemical laboratory assistant and assess the status of his coronaries. However, prognosis is quite poor for this patient. Hypoxic down time is high. Patient is on a propofol drip. I explained to the that we will do our best but mortality risk is probably close to 90%. BERENICE / MICHAEL: [id number] /
--- NOTE | 2020-09-17 13:49 | CC ---
CARDIAC CATHETERIZATION REPORT DATE OF SERVICE: 09/17/2020. PROCEDURE: 1. Left heart catheterization and coronary angiography. 2. PTCA and stenting of a 99% occluded circumflex marginal coronary artery with a drug- eluting stent. 3. Impella heart pump placement under fluoroscopic guidance. PERFORMED BY: Dr. Kyaw Antoine. SEDATION: Moderate conscious sedation time was 120 minutes. The patient was administered propofol. He was intubated and anesthesia helped with sedation and supportive care during the procedure. CLINICAL INFORMATION: Mr. Moreno Alcala is a 59-year-old gentleman with a history of hypertension who presented with a cardiac arrest. Apparently he was unresponsive and making unusual noises and his shook him and subsequently became unresponsive. EMS was called. They could not intubate him right away, but they tried their best to oxygenate him and they had to shock him because he was in VFib when they first saw him. This is information from Dr. Sweeney who is the ER physician. After arrival, he was intubated and I advised cardiac catheterization. The patient had a wide QRS rhythm, looks like 80 ventricular rhythm. He was brought to the mobile home laborer expeditiously. PROCEDURE NOTE: Under local anesthesia and strict aseptic precautions, a 6-Tanzanian introducer was placed in the right femoral artery and another 6-Tanzanian introducer in the right femoral vein. Using standard Wojciech catheters, I performed coronary angiography and noted that the circumflex marginal had a 99% stenosis with haziness suggestive of thrombus. I proceeded to perform intervention in the same setting. Following the intervention, I placed the Impella heart pump because patient was persistently hypotensive requiring Levophed high doses and also I gave him 1 mL of epinephrine at least on 3 occasions during the procedure. Under fluoroscopic guidance, the Impella was also placed. CARDIAC CATHETERIZATION FINDINGS: Left ventricular end-diastolic pressure was 20 mmHg. There was no gradient across aortic valve. CORONARY ANGIOGRAPHY FINDINGS: LEFT MAIN CORONARY ARTERY: Short patent disease-free vessel that bifurcates into LAD and circumflex. LEFT ANTERIOR DESCENDING CORONARY ARTERY: Good caliber vessel extends along the anterior wall, supplies a fair amount of myocardium, has minor irregularities but no significant disease, gives off septal and diagonal branches. There is a first diagonal branch which has a 70-80 percent narrowing. Second diagonal has about a 40% narrowing. LAD itself has no significant disease. LEFT POSTERIOR CIRCUMFLEX CORONARY ARTERY: Technically this is a codominant vessel that is large in caliber and supplies a sizable amount of myocardium. Gives off a large obtuse marginal, which divides into 2 branches immediately. The first obtuse marginal is a large vessel and from this 1st obtuse marginal branch comes the inferior branch which is quite hazy and has a 99% stenosis and then again sub divides into 2 branches. This inferior branch is a culprit vessel. The superior branch is good caliber, free of significant disease. Continuation of circumflex has mild diffuse disease and distally bifurcates into small PDA and PLV. The first obtuse marginals inferior branch has a 99% stenosis and this is the culprit lesion. RIGHT CORONARY ARTERY: This is probably a dominant/codominant vessel, has diffuse disease in the midportion of about 30-40 percent and distally gives off a large PDA, very small PLV and the PDA has minor irregularities. LEFT VENTRICULOGRAM was not performed. FINAL IMPRESSION: This patient has a 99% circumflex marginal stenosis which is the culprit lesion. He has a codominant or a right dominant system. RCA has diffuse 40% lesion in the midportion and large PDA is free of significant disease. LAD is free of significant disease. First diagonal has a 70% narrowing. Filling pressures are elevated. No gradient. RECOMMENDATIONS: I recommended PCI of circumflex and proceeded to perform procedure expeditiously. I will also place an Impella heart pump as well. PCI PROCEDURE DETAILS: I used a standard left Wojciech guide catheter to cannulate the left coronary artery and a run-through wire to cross the lesion. Predilatation was performed with a 3.0 caliber NC Trek balloon of 12 mm length. I then deployed a 3.0 caliber 12 mm long Xience stent at 13 atmospheres. Excellent angiographic result was achieved. The side branch was preserved. The flow was preserved in the side branch. I then proceeded to perform an Impella placement. I checked to see the femoral angiogram. The caliber of the common femoral artery was large and the sheath location was well above the bifurcation. I observed this on fluoroscopy but did not save the image. Under fluoroscopic guidance, I advanced a Stiff wire into the descending aorta. I placed 2 Perclose devices in 2 o'clock and 10 o'clock position and then advanced over the stiff wire an 8-Tanzanian dilator, a 10-Tanzanian dilator and 12-Tanzanian dilator and eventually placed a 14-Tanzanian sheath. Through the 14-Tanzanian sheath, I advanced a pigtail catheter and positioned it in the left ventricular apex. I exchanged the wire and used the Impella wire. The Impella wire was left in the LV and the pigtail catheter was exchanged for the Impella catheter. Under fluoroscopic guidance, Impella catheter was positioned. Excellent position was achieved. The waveform was good. Cardiac output was 3.3-3.4 L. The Impella was sutured. I requested the rep to come in and help to make sure of parameters were all correct. The Impella was sutured and patient will be sent to the ICU. The details of the procedure as well as the stenting of circumflex and the possibility of significant anoxic damage was discussed with the patient's family, his , father and several siblings. Prognosis remains poor. The patient's family is fully aware of this. Patient will be sent to the ICU. The distal pulse was good. The patient received Angiomax bolus and infusion and ACT was well above 250 when I finished the procedure. Patient received 600 mg of Plavix and also received aspirin. At the conclusion of the procedure, his systolic blood pressure is about 118/90. The patient is in sinus rhythm with a left bundle. Prognosis remains poor. MMODL / IJN: [id number] /
--- NOTE | 2020-09-17 14:04 | P.PN ---
Subjective Progress Note Date: 09/17/20 HISTORY OF PRESENT ILLNESS: This is a 59-year-old male with a past medical history significant for hypertension. 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 Patient apparently had a cardiac arrest at home. provided CPR. When EMS arrived the patient was found to be in V. fib. Patient received defibrillation 3 and epi 2. Patient was found to have ST elevation on his EKG and was taken to the labor specialist upon arrival to the hospital with Dr. Antoine Patient underwent PCI to the circumflex with impella placement. Patient examined this morning at the bedside in the intensive care unit. Patient remains intubated on mechanical ventilation. He is on Levophed for vasopressor support. Telemetry reveals sinus mechanism with heart rate in the 70s. PHYSICAL EXAM: VITAL SIGNS: Reviewed. GENERAL: Well-developed in no acute distress-sedated on mechanical ventilation NECK: Supple. No JVD or thyromegaly LUNGS: Respirations even and unlabored. Lungs diminished with scattered rhonchi HEART: Regular rate and rhythm. S1 and S2 heard. EXTREMITIES: No clubbing or cyanosis. No lower extremity edema. Impella to right groin ASSESSMENT: STEMI, s/p PCI to circumflex and impella placement V-fib arrest Hypertension Acute heart failure, type unknown, echo pending Elevated LFTs Hematuria versus myoglobinuria, suspect secondary to mechanical lysis of RBC from impella PLAN: Impella turned down from P8 to P5 Monitor urine output. Send UA. Continue lasix drip Continue aspirin, plavix, and lipitor Wean Levophed as tolerated Will add beta rhonda when able to tolerate Further recommendations pending patient course Nurse practitioner note has been reviewed by physician. Signing provider agrees with the documented findings, assessment, and plan of care. Objective - Vital Signs Vital signs: Vital Signs Temp 99.7 F H 09/17/20 12:00 Pulse 72 09/17/20 12:00 Resp 24 09/17/20 12:00 BP 114/77 09/17/20 12:00 Pulse Ox 96 09/17/20 12:00 Intake & Output 09/16/20 09/17/20 09/17/20 18:59 06:59 18:59 Intake Total 780.7 1103.583 Output Total 125 1630 Balance 655.7 -526.417 Weight 136.078 kg Intake: IV 780.7 1020 0.9 340 1020 Intake, IV Titration 83.583 Amount Norepinephrine 8 mg In 19.353 Sodium Chloride 0.9% 250 ml @ 0.05 MCG/KG/MIN 13. 166 mls/hr IV .[id number] JORDANA Rx#:[id number] propofoL 1,000 mg In 64.230 Empty Bag 1 bag @ Titrate IV .Q0M JORDANA Rx#: [id number] Output: Urine 125 1630 Other: Voiding Method Indwelling Catheter ABP, PAP, CO, CI - Last Documented Arterial Blood Pressure 115/75 - Labs CBC & Chem 7: 09/17/20 11:50 09/17/20 05:35 Labs: Abnormal Lab Results - Last 24 Hours (Table) 09/17/20 09/17/20 09/17/20 Range/Units 01:45 02:23 02:23 WBC (3.8-10.6) k/uL Neutrophils # (1.3-7.7) k/uL PT (9.0-12.0) sec INR (<1.2) APTT (22.0-30.0) sec D-Dimer (<0.60) mg/L FEU ABG pH (7.35-7.45) ABG pCO2 (35-45) mmHg ABG pO2 (83-108) mmHg ABG Total CO2 (19-24) mmol/L ABG O2 Saturation (94-97) % BUN 21 H (9-20) mg/dL Creatinine 1.26 H (0.66-1.25) mg/dL Glucose 301 H (74-99) mg/dL POC Glucose (mg/dL) 314 H (75-99) mg/dL Plasma Lactic Acid Marcos 4.7 H* (0.7-2.0) mmol/L Phosphorus 7.6 H (2.5-4.5) mg/dL Magnesium 2.4 H (1.6-2.3) mg/dL AST 292 H (17-59) U/L ALT 287 H (4-49) U/L Lactate Dehydrogenase (313-618) U/L Creatine Kinase 213 H (55-170) U/L CK-MB (CK-2) (0.0-2.4) ng/mL Troponin I (0.000-0.034) ng/mL Total Protein 6.1 L (6.3-8.2) g/dL Urine Protein (Negative) Urine Blood (Negative) Ur Leukocyte Esterase (Negative) Urine Bacteria (None) /hpf Urine Mucus (None) /hpf 09/17/20 09/17/20 09/17/20 Range/Units 02:23 05:01 05:10 WBC (3.8-10.6) k/uL Neutrophils # (1.3-7.7) k/uL PT (9.0-12.0) sec INR (<1.2) APTT (22.0-30.0) sec D-Dimer (<0.60) mg/L FEU ABG pH 7.26 L (7.35-7.45) ABG pCO2 52 H (35-45) mmHg ABG pO2 233 H (83-108) mmHg ABG Total CO2 25 H (19-24) mmol/L ABG O2 Saturation 99.9 H (94-97) % BUN (9-20) mg/dL Creatinine (0.66-1.25) mg/dL Glucose (74-99) mg/dL POC Glucose (mg/dL) 128 H (75-99) mg/dL Plasma Lactic Acid Marcos (0.7-2.0) mmol/L Phosphorus (2.5-4.5) mg/dL Magnesium (1.6-2.3) mg/dL AST (17-59) U/L ALT (4-49) U/L Lactate Dehydrogenase (313-618) U/L Creatine Kinase (55-170) U/L CK-MB (CK-2) 3.9 H (0.0-2.4) ng/mL Troponin I 0.238 H* (0.000-0.034) ng/mL Total Protein (6.3-8.2) g/dL Urine Protein (Negative) Urine Blood (Negative) Ur Leukocyte Esterase (Negative) Urine Bacteria (None) /hpf Urine Mucus (None) /hpf 09/17/20 09/17/20 09/17/20 Range/Units 05:35 05:35 05:35 WBC (3.8-10.6) k/uL Neutrophils # (1.3-7.7) k/uL PT 15.4 H (9.0-12.0) sec INR 1.5 H (<1.2) APTT 52.0 H (22.0-30.0) sec D-Dimer >34.10 H (<0.60) mg/L FEU ABG pH (7.35-7.45) ABG pCO2 (35-45) mmHg ABG pO2 (83-108) mmHg ABG Total CO2 (19-24) mmol/L ABG O2 Saturation (94-97) % BUN 25 H (9-20) mg/dL Creatinine 1.32 H (0.66-1.25) mg/dL Glucose 113 H (74-99) mg/dL POC Glucose (mg/dL) (75-99) mg/dL Plasma Lactic Acid Marcos (0.7-2.0) mmol/L Phosphorus (2.5-4.5) mg/dL Magnesium (1.6-2.3) mg/dL AST 347 H (17-59) U/L ALT 296 H (4-49) U/L Lactate Dehydrogenase 2314 H (313-618) U/L Creatine Kinase (55-170) U/L CK-MB (CK-2) (0.0-2.4) ng/mL Troponin I 3.510 H* (0.000-0.034) ng/mL Total Protein (6.3-8.2) g/dL Urine Protein (Negative) Urine Blood (Negative) Ur Leukocyte Esterase (Negative) Urine Bacteria (None) /hpf Urine Mucus (None) /hpf 09/17/20 09/17/20 09/17/20 Range/Units 05:35 05:35 07:47 WBC 11.4 H (3.8-10.6) k/uL Neutrophils # 9.2 H (1.3-7.7) k/uL PT (9.0-12.0) sec INR (<1.2) APTT (22.0-30.0) sec D-Dimer (<0.60) mg/L FEU ABG pH (7.35-7.45) ABG pCO2 (35-45) mmHg ABG pO2 127 H (83-108) mmHg ABG Total CO2 (19-24) mmol/L ABG O2 Saturation 99.2 H (94-97) % BUN (9-20) mg/dL Creatinine (0.66-1.25) mg/dL Glucose (74-99) mg/dL POC Glucose (mg/dL) (75-99) mg/dL Plasma Lactic Acid Marcos (0.7-2.0) mmol/L Phosphorus 6.6 H (2.5-4.5) mg/dL Magnesium 2.4 H (1.6-2.3) mg/dL AST (17-59) U/L ALT (4-49) U/L Lactate Dehydrogenase (313-618) U/L Creatine Kinase (55-170) U/L CK-MB (CK-2) (0.0-2.4) ng/mL Troponin I (0.000-0.034) ng/mL Total Protein (6.3-8.2) g/dL Urine Protein (Negative) Urine Blood (Negative) Ur Leukocyte Esterase (Negative) Urine Bacteria (None) /hpf Urine Mucus (None) /hpf 09/17/20 09/17/20 Range/Units 10:30 10:50 WBC (3.8-10.6) k/uL Neutrophils # (1.3-7.7) k/uL PT (9.0-12.0) sec INR (<1.2) APTT (22.0-30.0) sec D-Dimer (<0.60) mg/L FEU ABG pH (7.35-7.45) ABG pCO2 (35-45) mmHg ABG pO2 (83-108) mmHg ABG Total CO2 (19-24) mmol/L ABG O2 Saturation (94-97) % BUN (9-20) mg/dL Creatinine (0.66-1.25) mg/dL Glucose (74-99) mg/dL POC Glucose (mg/dL) (75-99) mg/dL Plasma Lactic Acid Marcos (0.7-2.0) mmol/L Phosphorus (2.5-4.5) mg/dL Magnesium (1.6-2.3) mg/dL AST (17-59) U/L ALT (4-49) U/L Lactate Dehydrogenase (313-618) U/L Creatine Kinase (55-170) U/L CK-MB (CK-2) (0.0-2.4) ng/mL Troponin I 5.710 H* (0.000-0.034) ng/mL Total Protein (6.3-8.2) g/dL Urine Protein 2+ H (Negative) Urine Blood Large H (Negative) Ur Leukocyte Esterase Trace H (Negative) Urine Bacteria Rare H (None) /hpf Urine Mucus Rare H (None) /hpf
[2020-09-17] MEDS: DOBUTamine DRIP 500 MG in DEXTROSE/WATER 1 250ML.BAG IV SCH (14:23)
--- NOTE | 2020-09-17 14:45 | EEG ---
ELECTROENCEPHALOGRAM REPORT This is a 59-year-old gentleman who presented to the emergency department after cardiac arrest. He continues to have altered mental status. This video EEG is obtained to evaluate for seizure or epileptiform activity. RELEVANT MEDICATION: IV propofol. EEG TYPE: A routine 21 channel EEG is performed with video using the 10/20 electrode placement system. DESCRIPTION: The patient is intubated on a ventilator and is on IV propofol. During the awake state, the background consists of diffuse moderate slow to moderate voltage of 10 to 11 hertz intermixed with occasional theta activity. At rare occasions, the background consists of diffuse non-rhythmic delta activity There is no physiological stage II sleep architecture seen. There is no focal slowing seen. Interictal and ictal is none. ACTIVATION PROCEDURES: Photic stimulation did not evoke a positive driving response. There is no abnormality during the photic stimulation. Hyperventilation is not performed. CLINICAL INTERPRETATION: This is an abnormal EEG. The background slowing is suggestive of mild to moderate encephalopathy. There are no focal slowing, epileptiform discharges or seizure on the EEG. The suppression activity is likely due to medication effect (Propofol). Clinical correlation is recommended. MMJOSEPHL / LEVN: [id number] / MTDD
[2020-09-17] MEDS: FUROSEMIDE 10 MG/ML 4 ML VIAL IV SCH ×2 (15:25→23:20)
[2020-09-17] MEDS ORDERED: ACETAMINOPHEN IV (For NPO) 1,000 MG in EMPTY BAG 1 BAG IVPB STA (15:49)
[2020-09-17 16:30] LABS: ABG Base Excess -1.5 mmol/L; ABG HCO3 22 mmol/L (21-25); ABG Oxygen Saturation 89.8 % (94-97); ABG PCO2 32 mmHg (35-45); ABG PH 7.46 (7.35-7.45); ABG TCO2 23 mmol/L (19-24); Allen Test Performed? Yes
[2020-09-17 16:35] LABS: ABG PO2 52 mmHg (83-108)
--- NOTE | 2020-09-17 16:44 | XR ---
EXAMINATION TYPE: XR chest 1V portable DATE OF EXAM: 09/17/2020 Comparison: Earlier today Clinical History: 59-year-old male poor oxygenation Findings: ET tube tip is high dyspnea of the thoracic inlet. Advanced by 2 cm. NG tube courses below the diaphr agm. Stable positioning of the Impeller device. Patchy opacity at the left base remains. No sizable e ffusion. Impression: 1. Recommend advancing the ET tube by 2 cm. 2. Stable positioning of the Impeller device. 3. Continued patchy left basilar opacity, likely atelectasis.
[2020-09-17 18:16] LABS: Albumin 3.8 g/dL (3.5-5.0); Calcium 8.1 mg/dL (8.4-10.2); Potassium 2.9 mmol/L (3.5-5.1); Total Bilirubin 1.5 mg/dL (0.2-1.3); Total Protein 6.4 g/dL (6.3-8.2)
[2020-09-17 18:26] LABS: Glucose,Whole Blood 116 mg/dL (75-99)
[2020-09-17] MEDS ORDERED: Potassium Replacement Protocol 1 EACH MISC MISCELLANE PRN (18:37)
[2020-09-17] MEDS: POTASSIUM CHLORIDE 20 MEQ in WATER FOR INJECTION 1 100ML.BAG IVPB SCH ×3 (18:45→23:01)
[2020-09-17] MEDS: HEPARIN SODIUM 1,000 UN/ML (10ML VL) IV PRN (21:18)
[2020-09-17 23:38] LABS: Glucose,Whole Blood 119 mg/dL (75-99)
[2020-09-18] MEDS: HEPARIN SODIUM 1,000 UN/ML (10ML VL) IV PRN (01:44)
[2020-09-18] MEDS: IPRATROPIUM-ALBUTEROL 3 ML NEB INHALATION SCH ×6 (01:55→18:29)
[2020-09-18] MEDS: NOREPINEPHRINE 8 MG in SODIUM CHLORIDE 0.9% 250 ML IV SCH ×3 (01:58→21:29)
[2020-09-18 04:38] LABS: Potassium 3.1 mmol/L (3.5-5.1)
[2020-09-18 04:39] LABS: Calcium 7.9 mg/dL (8.4-10.2); Magnesium 1.8 mg/dL (1.6-2.3)
[2020-09-18 04:48] LABS: ABG Base Excess -2.1 mmol/L; ABG HCO3 22 mmol/L (21-25); ABG Oxygen Saturation 94.8 % (94-97); ABG PCO2 35 mmHg (35-45); ABG PH 7.42 (7.35-7.45); ABG PO2 70 mmHg (83-108); ABG TCO2 23 mmol/L (19-24); Allen Test Performed? Yes
[2020-09-18 05:12] LABS: Basophils % (A) 0 %; Eosinophils % (A) 0 %; HCT 42.8 % (39.0-53.0); HGB 14.3 gm/dL (13.0-17.5); Lymphocytes # (A) 1.1 k/uL (1.0-4.8); Lymphocytes % (A) 9 %; MCH 31.4 pg (25.0-35.0); MCHC 33.3 g/dL (31.0-37.0); MCV 94.4 fL (80.0-100.0); Mean Platelet Volume 8.4; Monocytes # (A) 0.6 k/uL (0-1.0); Monocytes % (A) 5 %; Neutrophils # (A) 10.6 k/uL (1.3-7.7); Neutrophils % (A) 85 %; Platelet Count 168 k/uL (150-450); RBC 4.54 m/uL (4.30-5.90); RDW 13.9 % (11.5-15.5); WBC 12.5 k/uL (3.8-10.6)
[2020-09-18] MEDS ORDERED: Magnesium Replacement Protocol 1 EACH MISC MISCELLANE PRN (05:22)
[2020-09-18] MEDS: SODIUM CHLORIDE 0.9% 1,000 ML IV SCH ×3 (05:24→21:06)
[2020-09-18] MEDS: MAGNESIUM SULFATE-D5W PMX 1 GM in DEXTROSE/WATER 1 100ML.BAG IVPB SCH ×2 (05:42→06:50)
[2020-09-18] MEDS: POTASSIUM BICARBONATE/CIT AC 20 MEQ TABLET.EFF NG-TUBE SCH ×3 (05:42→08:49)
[2020-09-18] MEDS: LEVOTHYROXINE 50 MCG TAB PO SCH (05:42)
[2020-09-18] MEDS ORDERED: POTASSIUM BICARBONATE/CIT AC 20 MEQ TABLET.EFF NG-TUBE SCH (06:00)
[2020-09-18 06:08] LABS: Glucose,Whole Blood 115 mg/dL (75-99)
--- NOTE | 2020-09-18 06:27 | P.PN ---
Subjective Progress Note Date: 09/18/20 Principal diagnosis: Cardiac arrest. Pulmonary consult dated 09/17/2020. 59-year-old male who apparently had an [id number] cardiac arrest. EMS was called. His provided is danger chest compressions. When EMS arrived, the patient was in ventricular fibrillation arrest. The patient apparently started having chest compressions, received 3 defibrillations, and 2 rounds of epinephrine. The patient was apparently then intubated in the emergency room by the emergency room physician. The patient was taken to the Transport Engineer. The patient had a stent placed in his circumflex coronary artery. Currently, he's on the ventilator. He is on the volume assist control mode, tidal volume 500, rate 24, FiO2 40%, PEEP of 8. Blood gases on the same settings, except 50%, patricia wed PaO2 of 127 pCO2 of 40, and a pH 7.36. The patient remains on a Lasix drip at 10 mg an hour saline at 150 mL an hour, propofol at 40 mcg/kg/m, norepinephrine at 2 mcg/m. We are going to do a daily interruption of sedation to evaluate the patient's neurologic status. In addition, the patient will need an EEG, and neurology consultation. We'll attempt to wean the norepinephrine. White count 11.4, hemoglobin, hematocrit, and platelet count all normal. PT 15.4, INR 1.5, PTT 52, and d-dimer greater than 34.10. Sodium 141, potassium 3.8, chlorides 107, CO2 23, anion gap 11, BUN 25, and creatinine 1.32. AST 347, ALT is 296, and LDH 2314. Troponins were 0.238 and 3.510. Chest x-rays co nsistent with cardiomegaly, and CHF. Progress note dated 09/18/2020. 59-year-old male with a history of [id number] cardiac arrest. The patient may have had a prolonged period of resuscitation. The patient was receiving bystander CPR by his . EMS arrived, and continue with chest compressions, defibrillation, and 2 rounds of epinephrine. The patient was intubated in the emergency department by the emergency room physician. The patient was taken to the catheterization laboratory. His stent placement in circumflex coronary artery, and also, an Impella device was inserted. Currently, white count 12.5, hemoglobin 14.3, hematocrit 42.8, and platelet count 168,000. Blood gases show pO2 70, pCO2 35, and a pH is 7.42. His ventilator settings include the volume assist control mode, rate 24, tidal volume 500, FiO2 50%, PEEP of 10. The patient remains on dobutamine at 3 g kilogram per minute, propofol at 70 mcg/kg/m, saline at 125 mL an hour, and heparin via weightbase protocol. Tube feedings has not yet been started. Hopefully, the Impella can be removed today. Sodium 143, potassium 3.1, chlorides 111, CO2 22, anion gap 10, BUN 27, creatinine 1.78. Other than cardiomegaly, the chest x-ray looks pretty good. Objective - Vital Signs Vital signs: Vital Signs Temp 100.8 F H 09/18/20 04:00 Pulse 112 H 09/18/20 05:00 Resp 24 09/18/20 05:00 BP 103/69 09/18/20 05:00 Pulse Ox 91 L 09/18/20 05:00 Intake & Output 09/17/20 09/17/20 09/18/20 06:59 18:59 06:59 Intake Total 780.7 2244.216 2274.755 Output Total 125 3630 1785 Balance 655.7 -1385.784 489.755 Weight 136.078 kg 123.6 kg Intake: IV 780.7 1870 1510 0.9 340 1870 1310 Potassium Chloride 20 meq 200 In Water For Injection 1 100ml.bag @ 50 mls/hr IVPB Q2H [facility] Rx#: [id number] Intake, IV Titration 374.216 764.755 Amount DOBUTamine DRIP 500 mg In 129.106 Dextrose/Water 1 250ml. bag @ 2.5 MCG/KG/MIN 10. 206 mls/hr IV .Q24H [facility] Rx#:[id number] Heparin Sod,Pork in 0.45% 61.35 NaCl 25,000 unit In 0.45 % NaCl 1 250ml.bag @ Per Protocol IV .Q0M [facility] Rx#: [id number] Norepinephrine 8 mg In 45.858 Sodium Chloride 0.9% 250 ml @ 0.05 MCG/KG/MIN 13. 166 mls/hr IV .[id number] [facility] Rx#:[id number] propofoL 1,000 mg In 328.358 574.299 Empty Bag 1 bag @ Titrate IV .Q0M [facility] Rx#: [id number] Output: Urine 125 6170 1785 Other: Voiding Method Indwelling Catheter Indwelling Catheter ABP, PAP, CO, CI - Last Documented Arterial Blood Pressure 102/61 - Exam No acute distress, sedated, with possible anoxic brain injury. The patient has an orally placed endotracheal tube. HEENT examination is grossly unremarkable. Pupils reactive. Neck supple. Full range of motion. No adenopathy thyromegaly or neck vein distention. Cardiovascular examination reveals regular rhythm rate. S1-S2 normal. No S3 or S4. No discernible murmur noted. Heart sounds distant. Heart rate 112 bpm. Lungs reveal scattered rhonchi and crackles. Breath sounds equal. No wheezes. Abdomen soft but without bowel sounds. No obvious masses or tenderness. Extremities are intact. No cyanosis clubbing or edema. Skin is without rash or lesion. Neurologic examination cannot be properly assessed as the patient's heavily sedated with propofol. - Labs CBC & Chem 7: 09/18/20 03:45 09/18/20 03:45 Labs: Abnormal Lab Results - Last 24 Hours (Table) 09/17/20 09/17/20 09/17/20 Range/Units 05:35 05:35 05:35 WBC (3.8-10.6) k/uL Neutrophils # (1.3-7.7) k/uL PT 15.4 H (9.0-12.0) sec INR 1.5 H (<1.2) APTT 52.0 H (22.0-30.0) sec D-Dimer >34.10 H (<0.60) mg/L FEU ABG pH (7.35-7.45) ABG pCO2 (35-45) mmHg ABG pO2 (83-108) mmHg ABG O2 Saturation (94-97) % Potassium (3.5-5.1) mmol/L Chloride (98-107) mmol/L BUN 25 H (9-20) mg/dL Creatinine 1.32 H (0.66-1.25) mg/dL Glucose 113 H (74-99) mg/dL POC Glucose (mg/dL) (75-99) mg/dL Calcium (8.4-10.2) mg/dL Phosphorus (2.5-4.5) mg/dL Magnesium (1.6-2.3) mg/dL Total Bilirubin (0.2-1.3) mg/dL AST 347 H (17-59) U/L ALT 296 H (4-49) U/L Lactate Dehydrogenase 2314 H (313-618) U/L Troponin I 3.510 H* (0.000-0.034) ng/mL Urine Protein (Negative) Urine Blood (Negative) Ur Leukocyte Esterase (Negative) Urine Bacteria (None) /hpf Urine Mucus (None) /hpf 09/17/20 09/17/20 09/17/20 Range/Units 05:35 07:47 10:30 WBC (3.8-10.6) k/uL Neutrophils # (1.3-7.7) k/uL PT (9.0-12.0) sec INR (<1.2) APTT (22.0-30.0) sec D-Dimer (<0.60) mg/L FEU ABG pH (7.35-7.45) ABG pCO2 (35-45) mmHg ABG pO2 127 H (83-108) mmHg ABG O2 Saturation 99.2 H (94-97) % Potassium (3.5-5.1) mmol/L Chloride (98-107) mmol/L BUN (9-20) mg/dL Creatinine (0.66-1.25) mg/dL Glucose (74-99) mg/dL POC Glucose (mg/dL) (75-99) mg/dL Calcium (8.4-10.2) mg/dL Phosphorus 6.6 H (2.5-4.5) mg/dL Magnesium 2.4 H (1.6-2.3) mg/dL Total Bilirubin (0.2-1.3) mg/dL AST (17-59) U/L ALT (4-49) U/L Lactate Dehydrogenase (313-618) U/L Troponin I 5.710 H* (0.000-0.034) ng/mL Urine Protein (Negative) Urine Blood (Negative) Ur Leukocyte Esterase (Negative) Urine Bacteria (None) /hpf Urine Mucus (None) /hpf 09/17/20 09/17/20 09/17/20 Range/Units 10:50 16:24 17:59 WBC (3.8-10.6) k/uL Neutrophils # (1.3-7.7) k/uL PT (9.0-12.0) sec INR (<1.2) APTT (22.0-30.0) sec D-Dimer (<0.60) mg/L FEU ABG pH 7.46 H (7.35-7.45) ABG pCO2 32 L (35-45) mmHg ABG pO2 52 L* (83-108) mmHg ABG O2 Saturation 89.8 L (94-97) % Potassium 2.9 L (3.5-5.1) mmol/L Chloride 110 H (98-107) mmol/L BUN 25 H (9-20) mg/dL Creatinine 1.48 H (0.66-1.25) mg/dL Glucose 123 H (74-99) mg/dL POC Glucose (mg/dL) (75-99) mg/dL Calcium 8.1 L (8.4-10.2) mg/dL Phosphorus (2.5-4.5) mg/dL Magnesium (1.6-2.3) mg/dL Total Bilirubin 1.5 H (0.2-1.3) mg/dL AST 414 H (17-59) U/L ALT 213 H (4-49) U/L Lactate Dehydrogenase (313-618) U/L Troponin I (0.000-0.034) ng/mL Urine Protein 2+ H (Negative) Urine Blood Large H (Negative) Ur Leukocyte Esterase Trace H (Negative) Urine Bacteria Rare H (None) /hpf Urine Mucus Rare H (None) /hpf 09/17/20 09/17/20 09/18/20 Range/Units 18:24 23:37 03:45 WBC (3.8-10.6) k/uL Neutrophils # (1.3-7.7) k/uL PT (9.0-12.0) sec INR (<1.2) APTT (22.0-30.0) sec D-Dimer (<0.60) mg/L FEU ABG pH (7.35-7.45) ABG pCO2 (35-45) mmHg ABG pO2 (83-108) mmHg ABG O2 Saturation (94-97) % Potassium 3.1 L (3.5-5.1) mmol/L Chloride 111 H (98-107) mmol/L BUN 27 H (9-20) mg/dL Creatinine 1.78 H (0.66-1.25) mg/dL Glucose 118 H (74-99) mg/dL POC Glucose (mg/dL) 116 H 119 H (75-99) mg/dL Calcium 7.9 L (8.4-10.2) mg/dL Phosphorus (2.5-4.5) mg/dL Magnesium (1.6-2.3) mg/dL Total Bilirubin (0.2-1.3) mg/dL AST (17-59) U/L ALT (4-49) U/L Lactate Dehydrogenase (313-618) U/L Troponin I (0.000-0.034) ng/mL Urine Protein (Negative) Urine Blood (Negative) Ur Leukocyte Esterase (Negative) Urine Bacteria (None) /hpf Urine Mucus (None) /hpf 09/18/20 09/18/20 09/18/20 Range/Units 03:45 04:45 06:07 WBC 12.5 H (3.8-10.6) k/uL Neutrophils # 10.6 H (1.3-7.7) k/uL PT (9.0-12.0) sec INR (<1.2) APTT (22.0-30.0) sec D-Dimer (<0.60) mg/L FEU ABG pH (7.35-7.45) ABG pCO2 (35-45) mmHg ABG pO2 70 L (83-108) mmHg ABG O2 Saturation (94-97) % Potassium (3.5-5.1) mmol/L Chloride (98-107) mmol/L BUN (9-20) mg/dL Creatinine (0.66-1.25) mg/dL Glucose (74-99) mg/dL POC Glucose (mg/dL) 115 H (75-99) mg/dL Calcium (8.4-10.2) mg/dL Phosphorus (2.5-4.5) mg/dL Magnesium (1.6-2.3) mg/dL Total Bilirubin (0.2-1.3) mg/dL AST (17-59) U/L ALT (4-49) U/L Lactate Dehydrogenase (313-618) U/L Troponin I (0.000-0.034) ng/mL Urine Protein (Negative) Urine Blood (Negative) Ur Leukocyte Esterase (Negative) Urine Bacteria (None) /hpf Urine Mucus (None) /hpf Microbiology - Last 24 Hours (Table) 09/17/20 20:56 Sputum Culture - Preliminary Sputum Assessment and Plan Assessment: Status post [id number] cardiopulmonary arrest, secondary to ST segment elevation myocardial infarction, status post cardiopulmonary resuscitation with return of spontaneous circulation, and stent placement in the circumflex coronary artery, and placement of Impella device. Rule out anoxic brain injury. Congestive hepatopathy and shock liver. History of hypertension. History of hypothyroidism. Plan: Plan dated 09/17/2020. We will attempt to wean the patient off the norepinephrine. We'll also do a daily interruption of sedation. In addition, we'll try to turn down the IV fluids. Chest x-ray clearly shows congestive heart failure. In addition, the patient will have a neurology consult and EEG. Additional recommendations and suggestions are forthcoming. Prognosis is very guarded. We will continue to follow and make recommendations where appropriate. Plan dated 09/18/2020. Currently, the patient's gas exchange is reasonable. Chest x-ray shows cardiome ej. The patient remains on dobutamine at 3 mcg/kg/m. The patient has been sedated with propofol at 70 mcg/kg/m. Hopefully, the Impella device will come out today. Once that cell, it'll be easier to wean the patient. Additional recommendations and suggestions are forthcoming. I likely will do a daily interruption of sedation anyway. Neurology has been consulted. EEG was consistent with mild to moderate encephalopathy. Prognosis is guarded. We will continue to follow and make recommendations where appropriate. Time with Patient: Greater than 30
[2020-09-18] MEDS ORDERED: LEVOTHYROXINE 50 MCG TAB PO SCH (06:30)
[2020-09-18] MEDS: HEPARIN SODIUM,PORCINE 12,500 UNIT in DEXTROSE 5% IN WATER 500 ML IV SCH ×2 (06:52)
--- NOTE | 2020-09-18 07:42 | XR ---
EXAMINATION TYPE: XR chest 1V portable DATE OF EXAM: 09/18/2020 COMPARISON: 09/17/2020 HISTORY: SOB, Follow Up FINDINGS: Indwelling tubes and catheters are unchanged. Interval placement of NG tube is seen coursing into the stomach. No change in bibasilar opacities. Stable appearance of the cardio-mediastinal structures at this time. Pleural effusion unchanged. IMPRESSION: 1. Stable portable chest. Clinical correlation and follow up until resolution is recommended.
[2020-09-18] MEDS: CHLORHEXIDINE GLUCONATE 15 ML CUP MUCOUS MEM SCH ×2 (08:49→21:34)
[2020-09-18] MEDS: ATORVASTATIN 80 MG TAB PO SCH (08:49)
[2020-09-18] MEDS: FUROSEMIDE 10 MG/ML 4 ML VIAL IV SCH ×2 (08:49→21:35)
[2020-09-18] MEDS: ASPIRIN 81 MG PO SCH (08:49)
[2020-09-18] MEDS: CLOPIDOGREL 75 MG TAB PO SCH (08:49)
[2020-09-18] MEDS ORDERED: ASPIRIN 325 MG TAB PO SCH (09:00)
--- NOTE | 2020-09-18 10:05 | P.PN ---
Subjective Progress Note Date: 09/18/20 Pt is intubated, sedated: vent -AC, TV 500, FiO2 50%, PEEP 10, RR 24. Levophed titrated off, dobutamine initiated at 2.5mcg. Impella titrated from P-8 to P-5, then back up to P-7. Echo demonstrated impella in good place. Pt has mild WBC to 12.5, no fevers, MAPs > 65, tachy to 108. CXR appears to not have evidence of volume overload. Objective - Vital Signs Vital signs: Vital Signs Temp 99 F 09/18/20 08:00 Pulse 106 H 09/18/20 09:00 Resp 25 H 09/18/20 09:00 BP 106/70 09/18/20 09:00 Pulse Ox 92 L 09/18/20 09:00 Intake & Output 09/17/20 09/18/20 09/18/20 18:59 06:59 18:59 Intake Total 2244.216 2549.755 625 Output Total 3630 1835 205 Balance -1385.784 714.755 420 Weight 123.6 kg Intake: IV 1870 1735 475 0.9 1870 1435 375 Magnesium Sulfate-D5w Pmx 100 100 1 gm In Dextrose/Water 1 100ml.bag @ 100 mls/hr IVPB Q1H [facility] Rx#: [id number] Potassium Chloride 20 meq 200 In Water For Injection 1 100ml.bag @ 50 mls/hr IVPB Q2H [facility] Rx#: [id number] Intake, IV Titration 374.216 764.755 100 Amount DOBUTamine DRIP 500 mg In 129.106 Dextrose/Water 1 250ml. bag @ 2.5 MCG/KG/MIN 10. 206 mls/hr IV .Q24H [facility] Rx#:[id number] Heparin Sod,Pork in 0.45% 61.35 NaCl 25,000 unit In 0.45 % NaCl 1 250ml.bag @ Per Protocol IV .Q0M [facility] Rx#: [id number] Norepinephrine 8 mg In 45.858 Sodium Chloride 0.9% 250 ml @ 0.05 MCG/KG/MIN 13. 166 mls/hr IV .[id number] [facility] Rx#:[id number] propofoL 1,000 mg In 328.358 574.299 100 Empty Bag 1 bag @ Titrate IV .Q0M [facility] Rx#: [id number] Other 50 50 Output: Urine 3630 1835 205 Other: Voiding Method Indwelling Catheter Indwelling Catheter Indwelling Catheter ABP, PAP, CO, CI - Last Documented Arterial Blood Pressure 104/64 - Exam Gen: Intubated, sedated HEENT: normocephalic, atraumatic, good hearing acuity, moist mucous membranes Resp: Vent: AC - FiO2 50%, PEEP 10, tidal volume 500, respiratory rate 24 CVS: good distal perfusion x 4, tachycardic GI: soft, NTTP, ND : no SPT, no CVAT, garcia catheter is present with grossly hemorrhagic urine MSK: no pitting edema, no clubbing Neuro: moving all extremities, positive gag, positive cough, positive corneal, pupils equal and reactive - Labs CBC & Chem 7: 09/18/20 03:45 09/18/20 03:45 Labs: Abnormal Lab Results - Last 24 Hours (Table) 09/17/20 09/17/20 09/17/20 Range/Units 05:35 10:30 10:50 WBC (3.8-10.6) k/uL Neutrophils # (1.3-7.7) k/uL PT 15.4 H (9.0-12.0) sec INR 1.5 H (<1.2) APTT 52.0 H (22.0-30.0) sec D-Dimer >34.10 H (<0.60) mg/L FEU ABG pH (7.35-7.45) ABG pCO2 (35-45) mmHg ABG pO2 (83-108) mmHg ABG O2 Saturation (94-97) % Potassium (3.5-5.1) mmol/L Chloride (98-107) mmol/L BUN (9-20) mg/dL Creatinine (0.66-1.25) mg/dL Glucose (74-99) mg/dL POC Glucose (mg/dL) (75-99) mg/dL Calcium (8.4-10.2) mg/dL Total Bilirubin (0.2-1.3) mg/dL AST (17-59) U/L ALT (4-49) U/L Troponin I 5.710 H* (0.000-0.034) ng/mL Urine Protein 2+ H (Negative) Urine Blood Large H (Negative) Ur Leukocyte Esterase Trace H (Negative) Urine Bacteria Rare H (None) /hpf Urine Mucus Rare H (None) /hpf 09/17/20 09/17/20 09/17/20 Range/Units 16:24 17:59 18:24 WBC (3.8-10.6) k/uL Neutrophils # (1.3-7.7) k/uL PT (9.0-12.0) sec INR (<1.2) APTT (22.0-30.0) sec D-Dimer (<0.60) mg/L FEU ABG pH 7.46 H (7.35-7.45) ABG pCO2 32 L (35-45) mmHg ABG pO2 52 L* (83-108) mmHg ABG O2 Saturation 89.8 L (94-97) % Potassium 2.9 L (3.5-5.1) mmol/L Chloride 110 H (98-107) mmol/L BUN 25 H (9-20) mg/dL Creatinine 1.48 H (0.66-1.25) mg/dL Glucose 123 H (74-99) mg/dL POC Glucose (mg/dL) 116 H (75-99) mg/dL Calcium 8.1 L (8.4-10.2) mg/dL Total Bilirubin 1.5 H (0.2-1.3) mg/dL AST 414 H (17-59) U/L ALT 213 H (4-49) U/L Troponin I (0.000-0.034) ng/mL Urine Protein (Negative) Urine Blood (Negative) Ur Leukocyte Esterase (Negative) Urine Bacteria (None) /hpf Urine Mucus (None) /hpf 09/17/20 09/18/20 09/18/20 Range/Units 23:37 03:45 03:45 WBC 12.5 H (3.8-10.6) k/uL Neutrophils # 10.6 H (1.3-7.7) k/uL PT (9.0-12.0) sec INR (<1.2) APTT (22.0-30.0) sec D-Dimer (<0.60) mg/L FEU ABG pH (7.35-7.45) ABG pCO2 (35-45) mmHg ABG pO2 (83-108) mmHg ABG O2 Saturation (94-97) % Potassium 3.1 L (3.5-5.1) mmol/L Chloride 111 H (98-107) mmol/L BUN 27 H (9-20) mg/dL Creatinine 1.78 H (0.66-1.25) mg/dL Glucose 118 H (74-99) mg/dL POC Glucose (mg/dL) 119 H (75-99) mg/dL Calcium 7.9 L (8.4-10.2) mg/dL Total Bilirubin (0.2-1.3) mg/dL AST (17-59) U/L ALT (4-49) U/L Troponin I (0.000-0.034) ng/mL Urine Protein (Negative) Urine Blood (Negative) Ur Leukocyte Esterase (Negative) Urine Bacteria (None) /hpf Urine Mucus (None) /hpf 09/18/20 09/18/20 Range/Units 04:45 06:07 WBC (3.8-10.6) k/uL Neutrophils # (1.3-7.7) k/uL PT (9.0-12.0) sec INR (<1.2) APTT (22.0-30.0) sec D-Dimer (<0.60) mg/L FEU ABG pH (7.35-7.45) ABG pCO2 (35-45) mmHg ABG pO2 70 L (83-108) mmHg ABG O2 Saturation (94-97) % Potassium (3.5-5.1) mmol/L Chloride (98-107) mmol/L BUN (9-20) mg/dL Creatinine (0.66-1.25) mg/dL Glucose (74-99) mg/dL POC Glucose (mg/dL) 115 H (75-99) mg/dL Calcium (8.4-10.2) mg/dL Total Bilirubin (0.2-1.3) mg/dL AST (17-59) U/L ALT (4-49) U/L Troponin I (0.000-0.034) ng/mL Urine Protein (Negative) Urine Blood (Negative) Ur Leukocyte Esterase (Negative) Urine Bacteria (None) /hpf Urine Mucus (None) /hpf Microbiology - Last 24 Hours (Table) 09/17/20 20:56 Gram Stain - Preliminary Sputum Sputum Culture - Preliminary Assessment and Plan Assessment: Cardiac arrest secondary to ventricular fibrillation ST elevation GA Acute systolic congestive heart failure Cardiogenic Shock -Admit to inpatient, telemetry; ICU level care -Pulmonary consult for ICU management -Cardiology consult for ST elevation GA and heart failure; -[facility] with 2 x LISBETH to the OM1 prox and mid -Echocardiogram, read pending -Neurology consult for post-arrest anoxia -EEG negative, but on propofol at the time -CT brain, pending -Daily sedation holiday: -09/17: SHANE, not following commands, +cough, +gag, +corneal -09/18: sedation wean pending -Trend troponins --> 0.238 --> 3.51 --> 5.7 -Aspirin, Plavix, Statin, heparin drip -Impella (3L) support --> P-8 --> P-5 (09/17) --> P7 (09/18) -hemolysis labs 09/18: CBC, BMP, Mg, LFTs, retic, LDH, haptoglobin -Levophed for map greater than 65 --> Levo d/c'd 09/18, started dobutamine -Dobutamine at 2.5 mcg/min (09/18) -Propofol for sedation --> 40mcg (09/17) --> 70 mcg (09/18) -I/os, daily weights -IVF running at 125cc/hr -Lasix drip --> 40mg IV TID (09/18) Gross hematuria, improving -Could be secondary to traumatic Garcia placement -CBC daily Hypertension Hypothyroidism -Home medications reviewed and reconciled -Continue levothyroxine -Hold home with lisinoprilHCTZ Patient is a full code is the POA DVT prophylaxis is covered with heparin drip
[2020-09-18] MEDS: DOBUTamine DRIP 500 MG in DEXTROSE/WATER 1 250ML.BAG IV SCH (10:47)
--- NOTE | 2020-09-18 10:52 | P.PN ---
Subjective Progress Note Date: 09/18/20 Patient was seen for a follow-up. Please refer to Dr. Fadi Johnson note for details. Patient came to the hospital with cardiac arrest. Exact downtime unclear, although some report states 20 minutes. Patient had acute ME, for which he underwent cardiac stenting. At present patient is on sedation with propofol 70 g, which is a high dose. He has a cardiac device, which prevents him from getting computed tomography scan. Per nursing report, when sedation is decreased, he does move all 4 extremities randomly, although not purposefully. He did open his eyes. At present patient is sedated. Objective - Vital Signs Vital signs: Vital Signs Temp 99 F 09/18/20 08:00 Pulse 105 H 09/18/20 10:00 Resp 27 H 09/18/20 10:00 BP 109/68 09/18/20 10:00 Pulse Ox 93 L 09/18/20 10:00 Intake & Output 09/17/20 09/18/20 09/18/20 18:59 06:59 18:59 Intake Total 2244.216 2549.755 700 Output Total 3630 1835 380 Balance -1385.784 714.755 320 Weight 123.6 kg Intake: IV 1870 1735 550 0.9 1870 1435 450 Magnesium Sulfate-D5w Pmx 100 100 1 gm In Dextrose/Water 1 100ml.bag @ 100 mls/hr IVPB Q1H [facility] Rx#: [id number] Potassium Chloride 20 meq 200 In Water For Injection 1 100ml.bag @ 50 mls/hr IVPB Q2H [facility] Rx#: [id number] Intake, IV Titration 374.216 764.755 100 Amount DOBUTamine DRIP 500 mg In 129.106 Dextrose/Water 1 250ml. bag @ 2.5 MCG/KG/MIN 10. 206 mls/hr IV .Q24H [facility] Rx#:[id number] Heparin Sod,Pork in 0.45% 61.35 NaCl 25,000 unit In 0.45 % NaCl 1 250ml.bag @ Per Protocol IV .Q0M [facility] Rx#: [id number] Norepinephrine 8 mg In 45.858 Sodium Chloride 0.9% 250 ml @ 0.05 MCG/KG/MIN 13. 166 mls/hr IV .[id number] [facility] Rx#:[id number] propofoL 1,000 mg In 328.358 574.299 100 Empty Bag 1 bag @ Titrate IV .Q0M [facility] Rx#: [id number] Other 50 50 Output: Urine 3630 1835 380 Other: Voiding Method Indwelling Catheter Indwelling Catheter Indwelling Catheter ABP, PAP, CO, CI - Last Documented Arterial Blood Pressure 116/66 - Exam On examination patient is sedated at this time with propofol 70 g. Per nursing report, within sedation was decreased, patient did open his eyes, but did not follow commands. He did move his all 4 extremities randomly but not purposefully. At present he is sedated, therefore exam is limited. Patient is breathing over the ventilator. His pupils are round and reacting. Oculocephalics and corneals are absent. Tone is equal. Reflexes are diminished and plantars flat. No obvious seizure activity noted. No obvious rash. Rest of the examination cannot be performed because of sedation and limited mobility. - Labs CBC & Chem 7: 09/18/20 10:43 09/18/20 03:45 Labs: Abnormal Lab Results - Last 24 Hours (Table) 09/17/20 09/17/20 09/17/20 Range/Units 05:35 10:30 10:50 WBC (3.8-10.6) k/uL Neutrophils # (1.3-7.7) k/uL PT 15.4 H (9.0-12.0) sec INR 1.5 H (<1.2) APTT 52.0 H (22.0-30.0) sec D-Dimer >34.10 H (<0.60) mg/L FEU ABG pH (7.35-7.45) ABG pCO2 (35-45) mmHg ABG pO2 (83-108) mmHg ABG O2 Saturation (94-97) % Potassium (3.5-5.1) mmol/L Chloride (98-107) mmol/L BUN (9-20) mg/dL Creatinine (0.66-1.25) mg/dL Glucose (74-99) mg/dL POC Glucose (mg/dL) (75-99) mg/dL Calcium (8.4-10.2) mg/dL Total Bilirubin (0.2-1.3) mg/dL AST (17-59) U/L ALT (4-49) U/L Troponin I 5.710 H* (0.000-0.034) ng/mL Urine Protein 2+ H (Negative) Urine Blood Large H (Negative) Ur Leukocyte Esterase Trace H (Negative) Urine Bacteria Rare H (None) /hpf Urine Mucus Rare H (None) /hpf 09/17/20 09/17/20 09/17/20 Range/Units 16:24 17:59 18:24 WBC (3.8-10.6) k/uL Neutrophils # (1.3-7.7) k/uL PT (9.0-12.0) sec INR (<1.2) APTT (22.0-30.0) sec D-Dimer (<0.60) mg/L FEU ABG pH 7.46 H (7.35-7.45) ABG pCO2 32 L (35-45) mmHg ABG pO2 52 L* (83-108) mmHg ABG O2 Saturation 89.8 L (94-97) % Potassium 2.9 L (3.5-5.1) mmol/L Chloride 110 H (98-107) mmol/L BUN 25 H (9-20) mg/dL Creatinine 1.48 H (0.66-1.25) mg/dL Glucose 123 H (74-99) mg/dL POC Glucose (mg/dL) 116 H (75-99) mg/dL Calcium 8.1 L (8.4-10.2) mg/dL Total Bilirubin 1.5 H (0.2-1.3) mg/dL AST 414 H (17-59) U/L ALT 213 H (4-49) U/L Troponin I (0.000-0.034) ng/mL Urine Protein (Negative) Urine Blood (Negative) Ur Leukocyte Esterase (Negative) Urine Bacteria (None) /hpf Urine Mucus (None) /hpf 09/17/20 09/18/20 09/18/20 Range/Units 23:37 03:45 03:45 WBC 12.5 H (3.8-10.6) k/uL Neutrophils # 10.6 H (1.3-7.7) k/uL PT (9.0-12.0) sec INR (<1.2) APTT (22.0-30.0) sec D-Dimer (<0.60) mg/L FEU ABG pH (7.35-7.45) ABG pCO2 (35-45) mmHg ABG pO2 (83-108) mmHg ABG O2 Saturation (94-97) % Potassium 3.1 L (3.5-5.1) mmol/L Chloride 111 H (98-107) mmol/L BUN 27 H (9-20) mg/dL Creatinine 1.78 H (0.66-1.25) mg/dL Glucose 118 H (74-99) mg/dL POC Glucose (mg/dL) 119 H (75-99) mg/dL Calcium 7.9 L (8.4-10.2) mg/dL Total Bilirubin (0.2-1.3) mg/dL AST (17-59) U/L ALT (4-49) U/L Troponin I (0.000-0.034) ng/mL Urine Protein (Negative) Urine Blood (Negative) Ur Leukocyte Esterase (Negative) Urine Bacteria (None) /hpf Urine Mucus (None) /hpf 09/18/20 09/18/20 Range/Units 04:45 06:07 WBC (3.8-10.6) k/uL Neutrophils # (1.3-7.7) k/uL PT (9.0-12.0) sec INR (<1.2) APTT (22.0-30.0) sec D-Dimer (<0.60) mg/L FEU ABG pH (7.35-7.45) ABG pCO2 (35-45) mmHg ABG pO2 70 L (83-108) mmHg ABG O2 Saturation (94-97) % Potassium (3.5-5.1) mmol/L Chloride (98-107) mmol/L BUN (9-20) mg/dL Creatinine (0.66-1.25) mg/dL Glucose (74-99) mg/dL POC Glucose (mg/dL) 115 H (75-99) mg/dL Calcium (8.4-10.2) mg/dL Total Bilirubin (0.2-1.3) mg/dL AST (17-59) U/L ALT (4-49) U/L Troponin I (0.000-0.034) ng/mL Urine Protein (Negative) Urine Blood (Negative) Ur Leukocyte Esterase (Negative) Urine Bacteria (None) /hpf Urine Mucus (None) /hpf Microbiology - Last 24 Hours (Table) 09/17/20 20:56 Gram Stain - Preliminary Sputum Sputum Culture - Preliminary Assessment and Plan Assessment: * Encephalopathy due to anoxia (cardiac arrest and unsure exact down for, but at least 10 minutes+). Also component of encephalopathy due to medication effect (propofol) and metabolic encpehalopathy (Acute kidney injury, elevated LFT's, elevated sugar). Per nurse once off sedation he is moving all extremities. * Cardiac arrest (initial rhythm is V-fib) * STEMI s/p PCI to circumflex and impella placement * Acute kidney injury * Elevated liver function test (with AST 292 and ALT 287) likely reactive * Elevated sugar * Congestive heart failure * Cardiomegaly Plan: EKG revealed mild to moderate background slowing consistent with encephalopathy. No epileptiform activity seen. Await CT of the head. Per the patient's nurse the patient is still unstable at this moment, as he has cardiac device, and cannot move the patient. Continue close neuro checks. Ammonia level 10. 2-D echo revealed presence of Impella device. Left ventricle severely dilated. Severe global hypokinesis of the left ventricle, EF is <20%. Cardiology is on board. Will defer the rest of the medical management to the ICU team and primary team. Neurology will continue to follow. The condition is very guarded.
--- NOTE | 2020-09-18 10:54 | ECHOF ---
Referral Reason:Impella MEASUREMENTS -------- HEIGHT: 182.9 cm WEIGHT: 136.1 kg BP: IVSd: 1.3 cm (0.6 - 1.1) LVIDd: 6.7 cm (3.9 - 5.3) LVPWd: 1.9 cm (0.6 - 1.1) IVSs: 1.7 cm LVIDs: 6.3 cm LVPWs: 1.9 cm Ao Diam: 3.6 cm (2.0 - 3.7) MV EXCURSION: 22.627 mm (> 18.000) MV EF SLOPE: 76 mm/s (70 - 150) EPSS: 1.5 cm FINDINGS -------- Undetermined rhythm. 09/17/20 @ 2.PM REPOSITION OF IMPELLA. This was a technically adequate study. The left ventricle is severely dilated. There is severe global hypokinesis of LV . Overall left v entricular systolic function is severely impaired with, an EF < 20%. The right ventricle is normal in size. The left atrial size is normal. The right atrial size is normal. Impella placed 09/17/20 device not seated. CONCLUSIONS -------- 1. 09/17/20 @ 2.PM REPOSITION OF IMPELLA. 2. The left ventricle is severely dilated. 3. There is severe global hypokinesis of LV . 4. Overall left ventricular systolic function is severely impaired with, an EF < 20%. 5. The right ventricle is normal in size. 6. The left atrial size is normal. 7. The right atrial size is normal. 8. Impella placed 09/17/20 device not seated. HEAD MACHINE FEEDER: Gregoria Angeles RDCS
[2020-09-18 11:02] LABS: Basophils % (A) 0 %; Eosinophils # (A) 0.2 k/uL (0-0.7); Eosinophils % (A) 1 %; HCT 42.3 % (39.0-53.0); HGB 14.6 gm/dL (13.0-17.5); Lymphocytes # (A) 1.5 k/uL (1.0-4.8); Lymphocytes % (A) 11 %; MCH 32.3 pg (25.0-35.0); MCHC 34.4 g/dL (31.0-37.0); MCV 93.7 fL (80.0-100.0); Mean Platelet Volume 8.1; Monocytes # (A) 0.6 k/uL (0-1.0); Monocytes % (A) 4 %; Neutrophils # (A) 11.7 k/uL (1.3-7.7); Neutrophils % (A) 83 %; Platelet Count 152 k/uL (150-450); RBC 4.51 m/uL (4.30-5.90); RDW 13.4 % (11.5-15.5); WBC 14.1 k/uL (3.8-10.6)
[2020-09-18 11:20] LABS: Albumin 3.5 g/dL (3.5-5.0); Bilirubin, Delta 0.4 mg/dL (0.0-0.2); Magnesium 2.6 mg/dL (1.6-2.3); Potassium 3.8 mmol/L (3.5-5.1); Total Bilirubin 1.4 mg/dL (0.2-1.3); Total Protein 5.9 g/dL (6.3-8.2)
[2020-09-18 11:34] LABS: Glucose,Whole Blood 100 mg/dL (75-99)
--- NOTE | 2020-09-18 12:10 | P.PN ---
Subjective Progress Note Date: 09/18/20 HISTORY OF PRESENT ILLNESS: This is a 59-year-old male with a past medical history significant for hypertension. Patient does not follow with a rn forensic regularly. Patient apparently had a cardiac arrest at home. provided CPR. When EMS arrived the patient was found to be in V. fib. Patient received defibrillation 3 and epi 2. Patient was found to have ST elevation on his EKG and was taken to the bottle label inspector upon arrival to the hospital with Dr. Antoine Patient underwent PCI to the circumflex with impella placement. Patient examined this morning at the bedside in the intensive care unit. Patient remains intubated on mechanical ventilation. He is on Levophed for vasopressor support. Telemetry reveals sinus mechanism with heart rate in the 70s. 09/18/2020 Patient examined this morning at the bedside. Patient remains sedated on mechanical ventilation. Patient has impella device to right groin. He remains on a dobutamine drip. Patient receiving IV Lasix 40 mg every 8 hours. PHYSICAL EXAM: VITAL SIGNS: Reviewed. GENERAL: Well-developed in no acute distress-sedated on mechanical ventilation NECK: Supple. No JVD or thyromegaly LUNGS: Respirations even and unlabored. Lungs diminished with scattered rhonchi HEART: Regular rate and rhythm. S1 and S2 heard. EXTREMITIES: No clubbing or cyanosis. No lower extremity edema. Impella to right groin ASSESSMENT: STEMI, s/p PCI to circumflex and impella placement V-fib arrest Hypertension Acute heart failure, type unknown, echo pending Elevated LFTs Hematuria versus myoglobinuria, suspect secondary to mechanical lysis of RBC from impella PLAN: Continue IV Lasix Continue dobutamine Continue aspirin, plavix, and lipitor Will add beta rhonda when able to tolerate Patient to undergo removal of Impella today per Dr. Antoine Further recommendations pending patient course Nurse practitioner note has been reviewed by physician. Signing provider agrees with the documented findings, assessment, and plan of care. Objective - Vital Signs Vital signs: Vital Signs Temp 99 F 09/18/20 08:00 Pulse 105 H 09/18/20 11:45 Resp 29 H 09/18/20 11:00 BP 98/67 09/18/20 11:00 Pulse Ox 95 09/18/20 11:00 Intake & Output 09/17/20 09/18/20 09/18/20 18:59 06:59 18:59 Intake Total 2244.216 2549.755 1048.284 Output Total 3630 1835 580 Balance -1385.784 714.755 468.284 Weight 123.6 kg Intake: IV 1870 1735 625 0.9 1870 1435 525 Magnesium Sulfate-D5w Pmx 100 100 1 gm In Dextrose/Water 1 100ml.bag @ 100 mls/hr IVPB Q1H [facility] Rx#: [id number] Potassium Chloride 20 meq 200 In Water For Injection 1 100ml.bag @ 50 mls/hr IVPB Q2H [facility] Rx#: [id number] Intake, IV Titration 374.216 764.755 373.284 Amount DOBUTamine DRIP 500 mg In 129.106 120.894 Dextrose/Water 1 250ml. bag @ 2.5 MCG/KG/MIN 10. 206 mls/hr IV .Q24H [facility] Rx#:[id number] Heparin Sod,Pork in 0.45% 61.35 NaCl 25,000 unit In 0.45 % NaCl 1 250ml.bag @ Per Protocol IV .Q0M [facility] Rx#: [id number] Norepinephrine 8 mg In 45.858 Sodium Chloride 0.9% 250 ml @ 0.05 MCG/KG/MIN 13. 166 mls/hr IV .[id number] [facility] Rx#:[id number] propofoL 1,000 mg In 328.358 574.299 252.39 Empty Bag 1 bag @ Titrate IV .Q0M [facility] Rx#: [id number] Other 50 50 Output: Urine 3630 1835 580 Other: Voiding Method Indwelling Catheter Indwelling Catheter Indwelling Catheter ABP, PAP, CO, CI - Last Documented Arterial Blood Pressure 118/67 - Labs CBC & Chem 7: 09/18/20 10:43 09/18/20 10:43 Labs: Abnormal Lab Results - Last 24 Hours (Table) 09/17/20 09/17/20 09/17/20 Range/Units 16:24 17:59 18:24 WBC (3.8-10.6) k/uL Neutrophils # (1.3-7.7) k/uL D-Dimer (<0.60) mg/L FEU ABG pH 7.46 H (7.35-7.45) ABG pCO2 32 L (35-45) mmHg ABG pO2 52 L* (83-108) mmHg ABG O2 Saturation 89.8 L (94-97) % Potassium 2.9 L (3.5-5.1) mmol/L Chloride 110 H (98-107) mmol/L BUN 25 H (9-20) mg/dL Creatinine 1.48 H (0.66-1.25) mg/dL Glucose 123 H (74-99) mg/dL POC Glucose (mg/dL) 116 H (75-99) mg/dL Calcium 8.1 L (8.4-10.2) mg/dL Magnesium (1.6-2.3) mg/dL Total Bilirubin 1.5 H (0.2-1.3) mg/dL Delta Bilirubin (0.0-0.2) mg/dL AST 414 H (17-59) U/L ALT 213 H (4-49) U/L Lactate Dehydrogenase (313-618) U/L Total Protein (6.3-8.2) g/dL 09/17/20 09/18/20 09/18/20 Range/Units 23:37 03:45 03:45 WBC 12.5 H (3.8-10.6) k/uL Neutrophils # 10.6 H (1.3-7.7) k/uL D-Dimer (<0.60) mg/L FEU ABG pH (7.35-7.45) ABG pCO2 (35-45) mmHg ABG pO2 (83-108) mmHg ABG O2 Saturation (94-97) % Potassium 3.1 L (3.5-5.1) mmol/L Chloride 111 H (98-107) mmol/L BUN 27 H (9-20) mg/dL Creatinine 1.78 H (0.66-1.25) mg/dL Glucose 118 H (74-99) mg/dL POC Glucose (mg/dL) 119 H (75-99) mg/dL Calcium 7.9 L (8.4-10.2) mg/dL Magnesium (1.6-2.3) mg/dL Total Bilirubin (0.2-1.3) mg/dL Delta Bilirubin (0.0-0.2) mg/dL AST (17-59) U/L ALT (4-49) U/L Lactate Dehydrogenase (313-618) U/L Total Protein (6.3-8.2) g/dL 09/18/20 09/18/20 09/18/20 Range/Units 04:45 06:07 10:43 WBC 14.1 H (3.8-10.6) k/uL Neutrophils # 11.7 H (1.3-7.7) k/uL D-Dimer (<0.60) mg/L FEU ABG pH (7.35-7.45) ABG pCO2 (35-45) mmHg ABG pO2 70 L (83-108) mmHg ABG O2 Saturation (94-97) % Potassium (3.5-5.1) mmol/L Chloride (98-107) mmol/L BUN (9-20) mg/dL Creatinine (0.66-1.25) mg/dL Glucose (74-99) mg/dL POC Glucose (mg/dL) 115 H (75-99) mg/dL Calcium (8.4-10.2) mg/dL Magnesium (1.6-2.3) mg/dL Total Bilirubin (0.2-1.3) mg/dL Delta Bilirubin (0.0-0.2) mg/dL AST (17-59) U/L ALT (4-49) U/L Lactate Dehydrogenase (313-618) U/L Total Protein (6.3-8.2) g/dL 09/18/20 09/18/20 09/18/20 Range/Units 10:43 10:43 11:33 WBC (3.8-10.6) k/uL Neutrophils # (1.3-7.7) k/uL D-Dimer 11.29 H (<0.60) mg/L FEU ABG pH (7.35-7.45) ABG pCO2 (35-45) mmHg ABG pO2 (83-108) mmHg ABG O2 Saturation (94-97) % Potassium (3.5-5.1) mmol/L Chloride 109 H (98-107) mmol/L BUN 30 H (9-20) mg/dL Creatinine 2.06 H (0.66-1.25) mg/dL Glucose 114 H (74-99) mg/dL POC Glucose (mg/dL) 100 H (75-99) mg/dL Calcium 8.0 L (8.4-10.2) mg/dL Magnesium 2.6 H (1.6-2.3) mg/dL Total Bilirubin 1.4 H (0.2-1.3) mg/dL Delta Bilirubin 0.4 H (0.0-0.2) mg/dL AST 259 H (17-59) U/L ALT 144 H (4-49) U/L Lactate Dehydrogenase 3738 H (313-618) U/L Total Protein 5.9 L (6.3-8.2) g/dL Microbiology - Last 24 Hours (Table) 09/17/20 20:56 Gram Stain - Preliminary Sputum Sputum Culture - Preliminary
[2020-09-18] MEDS ORDERED: IV FLUID CONTINUATION 1,000 ML IV ONE (12:15)
[2020-09-18 12:32] LABS: Chol/HDL Ratio 6.38; LDL Cholesterol,Calculated 91.4 mg/dL (0.0-131.0); VLDL Calculation 37.6 mg/dL (5.00-40.00)
[2020-09-18] MEDS ORDERED: HYDROmorphone 0.5 MG/0.5 ML SYRINGE IVP ONE (12:38)
[2020-09-18 12:42] LABS: Reticulocyte % 1.9 % (0.5-2.0)
--- NOTE | 2020-09-18 13:29 | CA ---
CARDIOLOGY REPORT DATE OF SERVICE: 09/18/2020 PROCEDURE: Impella removal and securement of hemostasis. HISTORY OF PRESENT ILLNESS: Mr. Moreno Alcala presented with cardiogenic shock and ventricular fibrillation, underwent stenting of circumflex marginal and subsequently an Impella device was placed and he was sent to the ICU on 09/17/2020 in the early hours. He seemed to be reasonably stable hemodynamically with 3 mics of dobutamine with heart rate of about 100 beats per minute with fair urine output, but mildly rising creatinine. I recommended Impella removal and brought him for the procedure after due discussion with the patient's family. PROCEDURE NOTE: Under strict aseptic precautions and local anesthesia, the Impella device was taken out under fluoroscopic guidance. Subsequently an 035 guidewire was passed in through the 14-Tajik sheath and kept in the descending aorta. The patient already had 2 Perclose sutures placed, one in 10 o'clock and one in 2 o'clock position. Both of these sutures were simultaneously pulled up and tamping was done with tamper that was provided. The sheath was taken out. Wire was left in after securing good hemostasis. The wire was also taken out and both of the sutures were tied. Excellent hemostasis was secured. Distal pulse was good. The patient tolerated the procedure well. He will now be on dobutamine 2.5 mics, dopamine 2.5 mics, an echocardiogram will be performed tomorrow. He will also be on heparin drip at a 1000 units an hour. He will be sent back to the ICU. Details were discussed with the patient's family. Prognosis remains guarded. MMODL / IJN: [id number] /
[2020-09-18] MEDS: DOPamine DRIP 800 MG in DEXTROSE/WATER 1 250ML.BAG IV SCH (13:44)
[2020-09-18] MEDS: fentaNYL (PF). 1,000 MCG in SODIUM CHLORIDE 0.9% 80 ML IV SCH ×2 (17:02→20:26)
[2020-09-18] MEDS ORDERED: HEPARIN SODIUM 1,000 UN/ML (10ML VL) IV PRN (17:19)
[2020-09-18] MEDS: HEPARIN SOD,PORK IN 0.45% NACL 25,000 UNIT in 0.45% NACL 1 250ML.BAG IV SCH ×2 (17:30→22:43)
[2020-09-18] MEDS ORDERED: CISATRACURIUM 2 MG/ML 5 ML VIAL IV ONE (18:50)
[2020-09-18] MEDS: CISATRACURIUM 200 MG in SODIUM CHLORIDE 0.9% 180 ML IV SCH (19:42)
[2020-09-18] MEDS: ARTIFICIAL TEARS-HYPROMELLOSE DROPS 15 ML BTL BOTH EYES SCH (19:56)
[2020-09-19 00:12] LABS: Glucose,Whole Blood 161 mg/dL (75-99)
[2020-09-19] MEDS: fentaNYL (PF). 1,000 MCG in SODIUM CHLORIDE 0.9% 80 ML IV SCH ×6 (00:17→20:36)
[2020-09-19] MEDS: ARTIFICIAL TEARS-HYPROMELLOSE DROPS 15 ML BTL BOTH EYES SCH ×7 (00:19→23:50)
[2020-09-19] MEDS: NOREPINEPHRINE 8 MG in SODIUM CHLORIDE 0.9% 250 ML IV SCH ×7 (01:07→22:30)
[2020-09-19] MEDS: IPRATROPIUM-ALBUTEROL 3 ML NEB INHALATION SCH ×6 (01:12→21:23)
[2020-09-19] MEDS: SODIUM CHLORIDE 0.9% 1,000 ML IV SCH ×3 (03:59→22:32)
[2020-09-19 04:07] LABS: Basophils % (A) 0 %; Eosinophils # (A) 0.1 k/uL (0-0.7); Eosinophils % (A) 1 %; HCT 38.9 % (39.0-53.0); HGB 13.5 gm/dL (13.0-17.5); Lymphocytes # (A) 1.6 k/uL (1.0-4.8); Lymphocytes % (A) 12 %; MCHC 34.7 g/dL (31.0-37.0); MCV 95.2 fL (80.0-100.0); Monocytes # (A) 0.6 k/uL (0-1.0); Monocytes % (A) 4 %; Neutrophils # (A) 11.3 k/uL (1.3-7.7); Neutrophils % (A) 82 %; Platelet Count 159 k/uL (150-450); RBC 4.08 m/uL (4.30-5.90); RDW 13.7 % (11.5-15.5); WBC 13.7 k/uL (3.8-10.6)
[2020-09-19 04:55] LABS: Calcium 7.4 mg/dL (8.4-10.2); Magnesium 2.3 mg/dL (1.6-2.3); Potassium 4.3 mmol/L (3.5-5.1)
[2020-09-19] MEDS: DOBUTamine DRIP 500 MG in DEXTROSE/WATER 1 250ML.BAG IV SCH (05:32)
[2020-09-19 05:46] LABS: ABG Base Excess -5.6 mmol/L; ABG HCO3 22 mmol/L (21-25); ABG Oxygen Saturation 97.6 % (94-97); ABG PCO2 52 mmHg (35-45); ABG PH 7.23 (7.35-7.45); ABG PO2 109 mmHg (83-108); ABG TCO2 24 mmol/L (19-24); Allen Test Performed? Yes
[2020-09-19] MEDS: LEVOTHYROXINE 50 MCG TAB PO SCH (05:56)
[2020-09-19 07:01] LABS: Glucose,Whole Blood 119 mg/dL (75-99)
--- NOTE | 2020-09-19 07:58 | XR ---
EXAMINATION TYPE: XR chest 1V portable DATE OF EXAM: 09/19/2020 COMPARISON: 09/18/2020 INDICATION: Tube placement TECHNIQUE: Single frontal view of the chest is obtained. FINDINGS: The heart size is normal. The pulmonary vasculature is normal. Small left pleural effusion may be present. Right lower lobe infiltrates developing. Correlate for at electasis. Endotracheal tube tip is above the anand. Nasogastric tube transverses the thorax. IMPRESSION: 1. Developing right lower lobe infiltrate. Correlate for atelectasis. Pneumonia could be considered. 2. Developing left pleural effusion extending out of the field of view. 3. Lines and catheters discussed above
[2020-09-19 08:25] LABS: Prothrombin Time 10.3 sec (9.0-12.0)
--- NOTE | 2020-09-19 09:15 | P.PN ---
Subjective Progress Note Date: 09/19/20 Principal diagnosis: Cardiac arrest. Pulmonary consult dated 09/17/2020. 59-year-old male who apparently had an vcs-tz-qymaverg cardiac arrest. EMS was called. His provided is danger chest compressions. When EMS arrived, the patient was in ventricular fibrillation arrest. The patient apparently started having chest compressions, received 3 defibrillations, and 2 rounds of epinephrine. The patient was apparently then intubated in the emergency room by the emergency room physician. The patient was taken to the Plate Gauger. The patient had a stent placed in his circumflex coronary artery. Currently, he's on the ventilator. He is on the volume assist control mode, tidal volume 500, rate 24, FiO2 40%, PEEP of 8. Blood gases on the same settings, except 50%, patricia wed PaO2 of 127 pCO2 of 40, and a pH 7.36. The patient remains on a Lasix drip at 10 mg an hour saline at 150 mL an hour, propofol at 40 mcg/kg/m, norepinephrine at 2 mcg/m. We are going to do a daily interruption of sedation to evaluate the patient's neurologic status. In addition, the patient will need an EEG, and neurology consultation. We'll attempt to wean the norepinephrine. White count 11.4, hemoglobin, hematocrit, and platelet count all normal. PT 15.4, INR 1.5, PTT 52, and d-dimer greater than 34.10. Sodium 141, potassium 3.8, chlorides 107, CO2 23, anion gap 11, BUN 25, and creatinine 1.32. AST 347, ALT is 296, and LDH 2314. Troponins were 0.238 and 3.510. Chest x-rays co nsistent with cardiomegaly, and CHF. Progress note dated 09/18/2020. 59-year-old male with a history of ibb-yh-scjngbem cardiac arrest. The patient may have had a prolonged period of resuscitation. The patient was receiving bystander CPR by his . EMS arrived, and continue with chest compressions, defibrillation, and 2 rounds of epinephrine. The patient was intubated in the emergency department by the emergency room physician. The patient was taken to the catheterization laboratory. His stent placement in circumflex coronary artery, and also, an Impella device was inserted. Currently, white count 12.5, hemoglobin 14.3, hematocrit 42.8, and platelet count 168,000. Blood gases show pO2 70, pCO2 35, and a pH is 7.42. His ventilator settings include the volume assist control mode, rate 24, tidal volume 500, FiO2 50%, PEEP of 10. The patient remains on dobutamine at 3 g kilogram per minute, propofol at 70 mcg/kg/m, saline at 125 mL an hour, and heparin via weightbase protocol. Tube feedings has not yet been started. Hopefully, the Impella can be removed today. Sodium 143, potassium 3.1, chlorides 111, CO2 22, anion gap 10, BUN 27, creatinine 1.78. Other than cardiomegaly, the chest x-ray looks pretty good. Progress note dated 09/19/2020. 59-year-old male with a history of iis-qz-jzthphxy cardiac arrest. The patient appears to have a significantly prolonged period of resuscitation, and may not have received proper oxygenation before arriving in the emergency room. The patient initially had bystander CPR by his . EMS arrived, and provided chest compressions. The patient was defibrillated 3 and received 2 rounds of epinephrine. The patient was not intubated until they arrived in the emergency department. The patient was taken to the catheterization laboratory. The patient is stent placed in his circumflex coronary artery. In addition, an Imp lizbeth device was inserted, and that was removed yesterday. Currently, the patient's on the volume assist control mode rate of 24, to be increased up to 28, tidal volume 500, FiO2 50%, PEEP of 15. The FiO2 be dropped down to 40%. Arterial blood gases show pO2 of 109, pCO2 of 52, and a pH is 7.23. Currently, the patient's on saline 75 mL an hour, dopamine at 2.5 mcg/kg/m, dobutamine at 3.5 mcg/kg/m, norepinephrine at 40 mcg/m, propofol at 60 mcg/kg/m, fentanyl at 2 mcg/kg/h, heparin weight based protocol, and Nimbex at 0.5 mcg/kg/m, with hihfa-el-ccoy monitoring. Nephrology will be consulted for worsening renal function. In addition, we'll start the patient on tube feeds. White count is 13.7, hemoglobin 13.5, hematocrit 38.9, platelet count 159,000. Sodium 141, potassium 4.3, chlorides 109, CO2 21, anion gap 11, BUN and creatinine are 38 and 3.38. Chest x-ray shows bibasilar infiltrates and/or atelectasis, right greater than left. Objective - Vital Signs Vital signs: Vital Signs Temp 100.0 F H 09/19/20 08:00 Pulse 101 H 09/19/20 08:45 Resp 28 H 09/19/20 08:45 BP 103/63 09/19/20 08:45 Pulse Ox 95 09/19/20 08:45 Intake & Output 09/18/20 09/19/20 09/19/20 18:59 06:59 18:59 Intake Total 2450.358 2696.477 342.306 Output Total 830 192 15 Balance 5309.743 6767.477 327.306 Weight 126 kg Intake: IV 1675 900 225 0.9 1500 900 225 Magnesium Sulfate-D5w Pmx 100 1 gm In Dextrose/Water 1 100ml.bag @ 100 mls/hr IVPB Q1H [facility] Rx#: [id number] Intake, IV Titration 503.538 2130.477 117.306 Amount Cisatracurium 200 mg In 47.957 Sodium Chloride 0.9% 180 ml @ 2 MCG/KG/MIN 14.832 mls/hr IV .[id number] [facility] Rx #:[id number] DOBUTamine DRIP 500 mg In 176.347 190.269 Dextrose/Water 1 250ml. bag @ 2.5 MCG/KG/MIN 10. 206 mls/hr IV .Q24H [facility] Rx#:[id number] Heparin Sod,Pork in 0.45% 74.492 NaCl 25,000 unit In 0.45 % NaCl 1 250ml.bag @ 8.09 UNITS/KG/HR 9.999 mls/hr IV .Q24H [facility] Rx#: [id number] Norepinephrine 8 mg In 89.263 773.824 117.306 Sodium Chloride 0.9% 250 ml @ 0.05 MCG/KG/MIN 13. 166 mls/hr IV .[id number] [facility] Rx#:[id number] fentaNYL (PF). 1,000 mcg 14.008 244.612 In Sodium Chloride 0.9% 80 ml @ Per Protocol IV . Q0M [facility] Rx#:[id number] propofoL 1,000 mg In 445.74 465.323 Empty Bag 1 bag @ Titrate IV .Q0M [facility] Rx#: [id number] Other 50 Output: Urine 830 192 15 Other: Voiding Method Indwelling Catheter Indwelling Catheter # Voids 20 ABP, PAP, CO, CI - Last Documented Arterial Blood Pressure 111/55 - Exam No acute distress, sedated, with possible anoxic brain injury. The patient has an orally placed endotracheal tube. HEENT examination is grossly unremarkable. Pupils reactive. Neck supple. Full range of motion. No adenopathy thyromegaly or neck vein distention. Cardiovascular examination reveals regular rhythm rate. S1-S2 normal. No S3 or S4. No discernible murmur noted. Heart sounds distant. Heart rate 101 bpm. Lungs reveal scattered rhonchi and crackles. Breath sounds equal. No wheezes. Abdomen soft but without bowel sounds. No obvious masses or tenderness. Extremities are intact. No cyanosis clubbing or edema. Skin is without rash or lesion. Neurologic examination cannot be properly assessed as the patient's heavily sedated and paralyzed with propofol, fentanyl, and Nimbex. - Labs CBC & Chem 7: 09/19/20 03:50 09/19/20 03:50 Labs: Abnormal Lab Results - Last 24 Hours (Table) 09/18/20 09/18/20 09/18/20 Range/Units 03:45 10:43 10:43 WBC 14.1 H (3.8-10.6) k/uL RBC (4.30-5.90) m/uL Hct (39.0-53.0) % Neutrophils # 11.7 H (1.3-7.7) k/uL APTT (22.0-30.0) sec D-Dimer 11.29 H (<0.60) mg/L FEU ABG pH (7.35-7.45) ABG pCO2 (35-45) mmHg ABG pO2 (83-108) mmHg ABG O2 Saturation (94-97) % Chloride (98-107) mmol/L Carbon Dioxide (22-30) mmol/L BUN (9-20) mg/dL Creatinine (0.66-1.25) mg/dL Glucose (74-99) mg/dL POC Glucose (mg/dL) (75-99) mg/dL Calcium (8.4-10.2) mg/dL Magnesium (1.6-2.3) mg/dL Total Bilirubin (0.2-1.3) mg/dL Delta Bilirubin (0.0-0.2) mg/dL AST (17-59) U/L ALT (4-49) U/L Lactate Dehydrogenase (313-618) U/L Total Protein (6.3-8.2) g/dL Triglycerides 188.0 H (0.0-149.0) mg/dL HDL Cholesterol 24.0 L (40.0-60.0) mg/dL 09/18/20 09/18/20 09/18/20 Range/Units 10:43 11:33 15:45 WBC (3.8-10.6) k/uL RBC (4.30-5.90) m/uL Hct (39.0-53.0) % Neutrophils # (1.3-7.7) k/uL APTT 31.5 H (22.0-30.0) sec D-Dimer (<0.60) mg/L FEU ABG pH (7.35-7.45) ABG pCO2 (35-45) mmHg ABG pO2 (83-108) mmHg ABG O2 Saturation (94-97) % Chloride 109 H (98-107) mmol/L Carbon Dioxide (22-30) mmol/L BUN 30 H (9-20) mg/dL Creatinine 2.06 H (0.66-1.25) mg/dL Glucose 114 H (74-99) mg/dL POC Glucose (mg/dL) 100 H (75-99) mg/dL Calcium 8.0 L (8.4-10.2) mg/dL Magnesium 2.6 H (1.6-2.3) mg/dL Total Bilirubin 1.4 H (0.2-1.3) mg/dL Delta Bilirubin 0.4 H (0.0-0.2) mg/dL AST 259 H (17-59) U/L ALT 144 H (4-49) U/L Lactate Dehydrogenase 3738 H (313-618) U/L Total Protein 5.9 L (6.3-8.2) g/dL Triglycerides (0.0-149.0) mg/dL HDL Cholesterol (40.0-60.0) mg/dL 09/19/20 09/19/20 09/19/20 Range/Units 00:10 03:50 03:50 WBC 13.7 H (3.8-10.6) k/uL RBC 4.08 L (4.30-5.90) m/uL Hct 38.9 L (39.0-53.0) % Neutrophils # 11.3 H (1.3-7.7) k/uL APTT (22.0-30.0) sec D-Dimer (<0.60) mg/L FEU ABG pH (7.35-7.45) ABG pCO2 (35-45) mmHg ABG pO2 (83-108) mmHg ABG O2 Saturation (94-97) % Chloride 109 H (98-107) mmol/L Carbon Dioxide 21 L (22-30) mmol/L BUN 38 H (9-20) mg/dL Creatinine 3.38 H (0.66-1.25) mg/dL Glucose 148 H (74-99) mg/dL POC Glucose (mg/dL) 161 H (75-99) mg/dL Calcium 7.4 L (8.4-10.2) mg/dL Magnesium (1.6-2.3) mg/dL Total Bilirubin (0.2-1.3) mg/dL Delta Bilirubin (0.0-0.2) mg/dL AST (17-59) U/L ALT (4-49) U/L Lactate Dehydrogenase (313-618) U/L Total Protein (6.3-8.2) g/dL Triglycerides (0.0-149.0) mg/dL HDL Cholesterol (40.0-60.0) mg/dL 09/19/20 09/19/20 Range/Units 05:40 06:43 WBC (3.8-10.6) k/uL RBC (4.30-5.90) m/uL Hct (39.0-53.0) % Neutrophils # (1.3-7.7) k/uL APTT (22.0-30.0) sec D-Dimer (<0.60) mg/L FEU ABG pH 7.23 L (7.35-7.45) ABG pCO2 52 H (35-45) mmHg ABG pO2 109 H (83-108) mmHg ABG O2 Saturation 97.6 H (94-97) % Chloride (98-107) mmol/L Carbon Dioxide (22-30) mmol/L BUN (9-20) mg/dL Creatinine (0.66-1.25) mg/dL Glucose (74-99) mg/dL POC Glucose (mg/dL) 119 H (75-99) mg/dL Calcium (8.4-10.2) mg/dL Magnesium (1.6-2.3) mg/dL Total Bilirubin (0.2-1.3) mg/dL Delta Bilirubin (0.0-0.2) mg/dL AST (17-59) U/L ALT (4-49) U/L Lactate Dehydrogenase (313-618) U/L Total Protein (6.3-8.2) g/dL Triglycerides (0.0-149.0) mg/dL HDL Cholesterol (40.0-60.0) mg/dL Microbiology - Last 24 Hours (Table) 09/17/20 20:56 Gram Stain - Preliminary Sputum Sputum Culture - Preliminary Assessment and Plan Assessment: Status post rhh-vt-wttckmbd cardiopulmonary arrest, secondary to ST segment el evation myocardial infarction, status post cardiopulmonary resuscitation with return of spontaneous circulation, and stent placement in the circumflex coronary artery, and placement of Impella device. Rule out anoxic brain injury. Severe ischemic cardiomyopathy with an ejection fraction of less than 20%. Acute kidney injury, possibly related to ATN. Congestive hepatopathy and shock liver. History of hypertension. History of hypothyroidism. Plan: Plan dated 09/17/2020. We will attempt to wean the patient off the norepinephrine. We'll also do a da cristiano interruption of sedation. In addition, we'll try to turn down the IV fluids. Chest x-ray clearly shows congestive heart failure. In addition, the patient will have a neurology consult and EEG. Additional recommendations and suggestions are forthcoming. Prognosis is very guarded. We will continue to follow and make recommendations where appropriate. Plan dated 09/18/2020. Currently, the patient's gas exchange is reasonable. Chest x-ray shows cardiomegaly. The patient remains on dobutamine at 3 mcg/kg/m. The patient has been sedated with propofol at 70 mcg/kg/m. Hopefully, the Impella device will come out today. Once that cell, it'll be easier to wean the patient. Additional recommendations and suggestions are forthcoming. I likely will do a daily interruption of sedation anyway. Neurology has been consulted. EEG was consistent with mild to moderate encephalopathy. Prognosis is guarded. We will continue to follow and make recommendations where appropriate. Plan dated 09/19/2020. Currently, the patient's doing worse. Patient's on numerous strips including dopamine, dobutamine, norepinephrine, propofol, fentanyl, heparin, and Nimbex. The patient has developed acute kidney injury, possibly related to ATN. In addition, the patient's ejection fraction of less than 20%. His prognosis is very poor. We'll have discussions with his at this point. Neurology has seen the patient. Cardiology is also involved in the care of this patient. We will continue to follow make recommendations where appropriate. Prognosis is very guarded. Time with Patient: Greater than 30
[2020-09-19] MEDS: CHLORHEXIDINE GLUCONATE 15 ML CUP MUCOUS MEM SCH ×2 (10:19→20:39)
[2020-09-19] MEDS: ATORVASTATIN 80 MG TAB PO SCH (10:19)
[2020-09-19] MEDS: CLOPIDOGREL 75 MG TAB PO SCH (10:19)
[2020-09-19] MEDS: ASPIRIN 81 MG PO SCH (10:19)
[2020-09-19] MEDS: FUROSEMIDE 10 MG/ML 4 ML VIAL IV SCH (11:19)
[2020-09-19 11:20] LABS: Glucose,Whole Blood 104 mg/dL (75-99)
--- NOTE | 2020-09-19 12:19 | P.PN ---
Subjective Progress Note Date: 09/19/20 HISTORY OF PRESENT ILLNESS: This is a 59-year-old male with a past medical history significant for hypertension. Patient does not follow with a mold stamper regularly. Patient apparently had a cardiac arrest at home. provided CPR. When EMS arrived the patient was found to be in V. fib. Patient received defibrillation 3 and epi 2. Patient was found to have ST elevation on his EKG and was taken to the dental laboratory supervisor upon arrival to the hospital with Dr. Antoine Patient underwent PCI to the circumflex with impella placement. Patient examined this morning at the bedside in the intensive care unit. Patient remains intubated on mechanical ventilation. He is on Levophed for vasopressor support. Telemetry reveals sinus mechanism with heart rate in the 70s. 09/18/2020 Patient examined this morning at the bedside. Patient remains sedated on mechanical ventilation. Patient has impella device to right groin. He remains on a dobutamine drip. Patient receiving IV Lasix 40 mg every 8 hours. 09/19/2020 Patient examined this morning in the intensive care unit. Patient underwent removal of impella yesterday with Dr. Antoine. Per nursing, patient became asynchronous with the ventilator and was placed on Nimbex. Patient is currently on FiO2 of 40%. PEEP was increased to 17. He remains on dobutamine at 3.5mcg/kg/min, dopamine at 2.5mcg/kg/min, and Levophed at 40mcg. blood pressure 105/52. Patient with marginal urine output. Chest x-ray today reveals developing right lower lobe infiltrate. Correlate for atelectasis. Pneumonia could be considered. Developing left pleural effusion. Echocardiogram completed revealing ejection fraction less than 20% with severe global hypokinesis of LV. Osmel function worsening today with a creatinine of 3.39. PHYSICAL EXAM: VITAL SIGNS: Reviewed. GENERAL: Well-developed in no acute distress-sedated on mechanical ventilation NECK: Supple. No JVD or thyromegaly LUNGS: Respirations even and unlabored. Lungs diminished with scattered rhonchi HEART: Regular rate and rhythm. S1 and S2 heard. EXTREMITIES: No clubbing or cyanosis. No lower extremity edema. Impella to right groin ASSESSMENT: STEMI, s/p PCI to circumflex and impella placement V-fib arrest Acute systolic heart failure Acute kidney injury Elevated LFTs Hematuria versus myoglobinuria, suspect secondary to mechanical lysis of RBC from impella, resolved Acute hypoxic respiratory failure requiring mechanical ventilation Hypotension requiring vasopressor support PLAN: Continue current cardiac medications Continue supportive care DC IV heparin and begin subcu heparin Prognosis remains poor. Dr. Antoine to speak with the patients today. Nurse practitioner note has been reviewed by physician. Signing provider agrees with the documented findings, assessment, and plan of care. Objective - Vital Signs Vital signs: Vital Signs Temp 100.0 F H 09/19/20 08:00 Pulse 104 H 09/19/20 11:30 Resp 28 H 09/19/20 11:00 BP 130/69 09/19/20 11:00 Pulse Ox 96 09/19/20 11:00 Intake & Output 09/18/20 09/19/20 09/19/20 18:59 06:59 18:59 Intake Total 2450.358 2696.477 953.292 Output Total 830 192 30 Balance 0276.969 6163.477 923.292 Weight 126 kg 126 kg Intake: IV 1675 900 356 0.9 1500 900 231 Magnesium Sulfate-D5w Pmx 100 1 gm In Dextrose/Water 1 100ml.bag @ 100 mls/hr IVPB Q1H [facility] Rx#: [id number] Sodium Chloride 0.9% 1, 125 000 ml @ 70 mls/hr IV . [id number] [facility] Rx#:[id number] Intake, IV Titration 560.689 3663.477 597.292 Amount Cisatracurium 200 mg In 47.957 Sodium Chloride 0.9% 180 ml @ 2 MCG/KG/MIN 14.832 mls/hr IV .[id number] [facility] Rx #:[id number] DOBUTamine DRIP 500 mg In 176.347 190.269 Dextrose/Water 1 250ml. bag @ 2.5 MCG/KG/MIN 10. 206 mls/hr IV .Q24H [facility] Rx#:[id number] Heparin Sod,Pork in 0.45% 74.492 NaCl 25,000 unit In 0.45 % NaCl 1 250ml.bag @ 8.09 UNITS/KG/HR 9.999 mls/hr IV .Q24H [facility] Rx#: [id number] Norepinephrine 8 mg In 89.263 773.824 397.292 Sodium Chloride 0.9% 250 ml @ 0.05 MCG/KG/MIN 13. 166 mls/hr IV .[id number] [facility] Rx#:[id number] fentaNYL (PF). 1,000 mcg 14.008 244.612 100 In Sodium Chloride 0.9% 80 ml @ Per Protocol IV . Q0M [facility] Rx#:[id number] propofoL 1,000 mg In 445.74 465.323 100 Empty Bag 1 bag @ Titrate IV .Q0M [facility] Rx#: [id number] Other 50 Output: Urine 830 192 30 Other: Voiding Method Indwelling Catheter Indwelling Catheter Indwelling Catheter # Voids 20 ABP, PAP, CO, CI - Last Documented Arterial Blood Pressure 105/52 - Labs CBC & Chem 7: 09/19/20 03:50 09/19/20 03:50 Labs: Abnormal Lab Results - Last 24 Hours (Table) 09/18/20 09/18/20 09/19/20 Range/Units 03:45 15:45 00:10 WBC (3.8-10.6) k/uL RBC (4.30-5.90) m/uL Hct (39.0-53.0) % Neutrophils # (1.3-7.7) k/uL APTT 31.5 H (22.0-30.0) sec ABG pH (7.35-7.45) ABG pCO2 (35-45) mmHg ABG pO2 (83-108) mmHg ABG O2 Saturation (94-97) % Chloride (98-107) mmol/L Carbon Dioxide (22-30) mmol/L BUN (9-20) mg/dL Creatinine (0.66-1.25) mg/dL Glucose (74-99) mg/dL POC Glucose (mg/dL) 161 H (75-99) mg/dL Calcium (8.4-10.2) mg/dL Triglycerides 188.0 H (0.0-149.0) mg/dL HDL Cholesterol 24.0 L (40.0-60.0) mg/dL 09/19/20 09/19/20 09/19/20 Range/Units 03:50 03:50 05:40 WBC 13.7 H (3.8-10.6) k/uL RBC 4.08 L (4.30-5.90) m/uL Hct 38.9 L (39.0-53.0) % Neutrophils # 11.3 H (1.3-7.7) k/uL APTT (22.0-30.0) sec ABG pH 7.23 L (7.35-7.45) ABG pCO2 52 H (35-45) mmHg ABG pO2 109 H (83-108) mmHg ABG O2 Saturation 97.6 H (94-97) % Chloride 109 H (98-107) mmol/L Carbon Dioxide 21 L (22-30) mmol/L BUN 38 H (9-20) mg/dL Creatinine 3.38 H (0.66-1.25) mg/dL Glucose 148 H (74-99) mg/dL POC Glucose (mg/dL) (75-99) mg/dL Calcium 7.4 L (8.4-10.2) mg/dL Triglycerides (0.0-149.0) mg/dL HDL Cholesterol (40.0-60.0) mg/dL 09/19/20 09/19/20 Range/Units 06:43 11:19 WBC (3.8-10.6) k/uL RBC (4.30-5.90) m/uL Hct (39.0-53.0) % Neutrophils # (1.3-7.7) k/uL APTT (22.0-30.0) sec ABG pH (7.35-7.45) ABG pCO2 (35-45) mmHg ABG pO2 (83-108) mmHg ABG O2 Saturation (94-97) % Chloride (98-107) mmol/L Carbon Dioxide (22-30) mmol/L BUN (9-20) mg/dL Creatinine (0.66-1.25) mg/dL Glucose (74-99) mg/dL POC Glucose (mg/dL) 119 H 104 H (75-99) mg/dL Calcium (8.4-10.2) mg/dL Triglycerides (0.0-149.0) mg/dL HDL Cholesterol (40.0-60.0) mg/dL Microbiology - Last 24 Hours (Table) 09/17/20 20:56 Gram Stain - Preliminary Sputum Sputum Culture - Preliminary
--- NOTE | 2020-09-19 14:13 | CONS ---
CONSULTATION REASON FOR CONSULT: Renal failure. HISTORY OF PRESENT ILLNESS: The patient is a 59-year-old male who was admitted to the hospital with a history of being found unresponsive. The patient was in cardiac arrest when the EMS arrived. In the meantime, patient's had provided CPR. Upon arrival into the hospital, patient was taken to the woods laborer. He had cardiac catheterization done with PTCA and stenting of occluded circumflex. He also had a Impella heart pump placement. The patient's ejection fraction was noted to be at 25%. His serum creatinine increased from 1.2 on initial admission to 3.38 now. Urine output remains poor at 5-10 mL an hour now and this has decreased overnight. The patient's blood pressure has been low. He is currently maintained on dobutamine, dopamine as well as Levophed which is around 30 mics. The patient is intubated. He is on the vent. FiO2 is at 40%. There is no history of fever. PAST MEDICAL HISTORY: Hypertension, hypothyroidism. PAST SURGICAL HISTORY: None. SOCIAL HISTORY: Negative for smoking, drug abuse or alcohol abuse. MEDICATIONS: Medications at home prior to admission included Mobic, lisinopril, hydrochlorothiazide, Synthroid and Tylenol p.m. REVIEW OF SYSTEMS: As per HPI. Other systems negative. EXAMINATION: The patient is currently sedated. He is on the vent. FiO2 at 40%. Tolerating tube feeds. Blood pressure 130/69, heart rate 96 per minute. He is afebrile. Examination of the heart S1, S2. Examination of the lungs, bilateral breath sounds are heard. Abdomen is soft, nontender. Examination of lower extremities shows trace edema. PELT INSPECTOR exam grossly intact. LAB: Show sodium of 141, potassium 4.3, chloride 109, CO2 is 21, BUN 38, creatinine 3.38, hemoglobin 13.5 g/dL. ASSESSMENT: 1. Acute kidney injury, ischemic acute tubular necrosis, status post cardiac arrest. Currently maintained on IV fluids. The patient also likely has a cardiorenal component of acute kidney injury with ejection fraction of less than 20%, currently maintained on dobutamine. He is significantly hypotensive requiring large doses of Levophed. There are no nephrotoxic agents on board. We will continue supportive care. The patient's family is present at bedside and his is informed that if the renal function does not improve, he will likely need renal replacement therapy. However, given the low blood pressure, this will be challenging and he likely be considered for a sled procedure down the road. 2. Status post acute myocardial infarction and cardiac arrest, status post cardiac catheterization and coronary artery stenting. 3. Severe cardiomyopathy, EF 2020 5%. 4. Cardiogenic shock. 5. Acute hypoxic respiratory failure status post cardiac arrest. PLAN: Continue with IV fluids for now. Monitor urine output. Continue with pressors and inotropic agents. Possible renal replacement therapy in 24-48 hours depending on labs and volume status. Thank you for this consultation. We will continue to follow the patient with you during hospitalization. MMODL / IJN: [id number] /
[2020-09-19] MEDS ORDERED: SODIUM CHLORIDE 0.9% 1,000 ML IV SCH (14:15)
--- NOTE | 2020-09-19 17:27 | US ---
EXAMINATION TYPE: US kidneys/renal and bladder DATE OF EXAM: 09/19/2020 COMPARISON: CT CLINICAL HISTORY: elevated creatinine. Intubated ICU patient. EXAM MEASUREMENTS: Right Kidney: 11.7 x 6.5 x 5.9 cm Left Kidney: 13.2 x 6.7 x 7.3 cm Post Void Residual Volume: not assessed on inpatient with Dykes catheter Right Kidney: No hydronephrosis or shadowing renal calculi seen Left Kidney: No hydronephrosis or shadowing renal calculi seen Bladder: Dykes Catheter is seen, but bladder is not well seen IMPRESSION: 1. No evidence of hydronephrosis or shadowing renal calculi. 2. Urinary bladder is not visualized due to Dykes catheter.
--- NOTE | 2020-09-19 17:34 | P.PN ---
Subjective Progress Note Date: 09/19/20 Principal diagnosis: v-fib arrest Patient is a 59-year-old male with a history of hypertension, hypothyroidism who presented to the ER after cardiac arrest in the field. He was intubated and sedated he underwent a left heart cath with in [place] placement. He underwent a stent to the LAD. It appears that his down time in the field was approximately 30 minutes on review of the EMS run sheet. He has been in cardiogenic shock requiring dopamine, dobutamine, and levophed. He has required a Nimbex drip to maintain adequate ventilation. Echocardiogram demonstrated an EF of less than 20%. He demonstrated shock liver on arrival. He has also had progressive anuric renal failure. Patient seen and examined at bedside. He is sedated and paralyzed on the vent. Family at bedside. spent greater than 30 minutes speaking to and family regarding poor prognosis, carcinogenic shock, renal failure, liver damage, and current inability to assess brain function. All questions answered to the best of my ability. General: non toxic, maximal distress, appears at stated age, obese Derm: warm, dry Head: atraumatic, normocephalic, symmetric Eyes: no lid lesion, anicteric sclera Mouth: no lip lesion, mucus membranes dry with lip cracking Cardiovascular: S1S2 reg, no murmur, positive posterior tibial pulse bilateral, Lungs: CTA bilateral, no rhonchi, no rales , no accessory muscle use him on vent Abdominal: soft, nontender to palpation, no guarding, no appreciable organomegaly, Dykes catheter without signs of urine production Ext: no gross muscle atrophy, 3+ edema, no contractures Neuro: Sedated and paralyzed on vent Psych: Sedated and paralyzed on vent V. fib arrest ST segment elevated myocardial infarction status post PCI to the circumflex and in [place] basement Acute systolic congestive heart failure Ischemic cardiomyopathy with ejection fraction less than 20% Cardiogenic shock Shock liver Acute hypoxic respiratory failure Acute kidney injury secondary to hypoperfusion and likely ATN Morbid obesity with BMI 37.7 Poor overall prognosis. Continue to wean vasopressors as able (dopamine, dobutamine, levothyroid). Plan is for Nimbex holiday in the morning. Had a prolonged discussion with family as outlined above. Additionally family was asking about potential for cardiac bypass surgery, explained that patient is not stable enough to consider options such as cardiac bypass surgery or dialysis at this point in time. We discussed that we also do not know his neurologic status or function postcardiac arrest. Recommend CT head once stable to assess for loss of keane-white matter differentiation. Further recommendations to follow. DVT prophylaxis: heparin Discussed with: nursing, , multiple family members A total of 70 minutes was spent on the care of this complex patient more than 50% of the time was spent in counseling and care coordination. Objective - Vital Signs Vital signs: Vital Signs Temp 99.1 F 09/19/20 16:00 Pulse 97 09/19/20 17:15 Resp 28 H 09/19/20 17:15 BP 103/57 09/19/20 17:15 Pulse Ox 95 09/19/20 17:15 Intake & Output 09/18/20 09/19/20 09/19/20 18:59 06:59 18:59 Intake Total 2450.358 2696.477 2070.034 Output Total 830 192 58 Balance 9705.791 5194.477 2012.034 Weight 126 kg 126 kg Intake: IV 1675 900 794 0.9 1500 900 249 Magnesium Sulfate-D5w Pmx 100 1 gm In Dextrose/Water 1 100ml.bag @ 100 mls/hr IVPB Q1H [facility] Rx#: [id number] Sodium Chloride 0.9% 1, 545 000 ml @ 70 mls/hr IV . [id number] [facility] Rx#:[id number] Intake, IV Titration 411.160 5626.477 1276.034 Amount Cisatracurium 200 mg In 47.957 Sodium Chloride 0.9% 180 ml @ 2 MCG/KG/MIN 14.832 mls/hr IV .[id number] [facility] Rx #:[id number] DOBUTamine DRIP 500 mg In 176.347 190.269 Dextrose/Water 1 250ml. bag @ 2.5 MCG/KG/MIN 10. 206 mls/hr IV .Q24H [facility] Rx#:[id number] Heparin Sod,Pork in 0.45% 74.492 NaCl 25,000 unit In 0.45 % NaCl 1 250ml.bag @ 8.09 UNITS/KG/HR 9.999 mls/hr IV .Q24H [facility] Rx#: [id number] Norepinephrine 8 mg In 89.263 773.824 625.012 Sodium Chloride 0.9% 250 ml @ 0.05 MCG/KG/MIN 13. 166 mls/hr IV .[id number] [facility] Rx#:[id number] fentaNYL (PF). 1,000 mcg 14.008 244.612 279.632 In Sodium Chloride 0.9% 80 ml @ Per Protocol IV . Q0M [facility] Rx#:[id number] propofoL 1,000 mg In 445.74 465.323 371.390 Empty Bag 1 bag @ Titrate IV .Q0M [facility] Rx#: [id number] Other 50 Output: Urine 830 192 58 Other: Voiding Method Indwelling Catheter Indwelling Catheter Indwelling Catheter # Voids 20 ABP, PAP, CO, CI - Last Documented Arterial Blood Pressure 95/45 - Labs CBC & Chem 7: 09/19/20 03:50 09/19/20 03:50 Labs: Abnormal Lab Results - Last 24 Hours (Table) 09/19/20 09/19/20 09/19/20 Range/Units 00:10 03:50 03:50 WBC 13.7 H (3.8-10.6) k/uL RBC 4.08 L (4.30-5.90) m/uL Hct 38.9 L (39.0-53.0) % Neutrophils # 11.3 H (1.3-7.7) k/uL ABG pH (7.35-7.45) ABG pCO2 (35-45) mmHg ABG pO2 (83-108) mmHg ABG O2 Saturation (94-97) % Chloride 109 H (98-107) mmol/L Carbon Dioxide 21 L (22-30) mmol/L BUN 38 H (9-20) mg/dL Creatinine 3.38 H (0.66-1.25) mg/dL Glucose 148 H (74-99) mg/dL POC Glucose (mg/dL) 161 H (75-99) mg/dL Calcium 7.4 L (8.4-10.2) mg/dL 09/19/20 09/19/20 09/19/20 Range/Units 05:40 06:43 11:19 WBC (3.8-10.6) k/uL RBC (4.30-5.90) m/uL Hct (39.0-53.0) % Neutrophils # (1.3-7.7) k/uL ABG pH 7.23 L (7.35-7.45) ABG pCO2 52 H (35-45) mmHg ABG pO2 109 H (83-108) mmHg ABG O2 Saturation 97.6 H (94-97) % Chloride (98-107) mmol/L Carbon Dioxide (22-30) mmol/L BUN (9-20) mg/dL Creatinine (0.66-1.25) mg/dL Glucose (74-99) mg/dL POC Glucose (mg/dL) 119 H 104 H (75-99) mg/dL Calcium (8.4-10.2) mg/dL Microbiology - Last 24 Hours (Table) 09/18/20 10:38 Blood Culture - Preliminary Blood No Growth after 24 hours 09/18/20 10:45 Blood Culture - Preliminary Blood No Growth after 24 hours
--- NOTE | 2020-09-19 17:47 | ECHOF ---
Referral Reason:POST IMPELLA REMOVAL MEASUREMENTS -------- HEIGHT: 182.9 cm WEIGHT: 123.4 kg BP: FINDINGS -------- Cardiac Arrest, stent, Impella placement: Follow up for post Impella removal. There is severe global hypokinesis of LV . Overall left ventricular systolic function is severely i mpaired with, an EF < 20%. There is no evidence of aortic regurgitation. There is trace mitral regurgitation. Trace tricuspid regurgitation present. There is no pulmonic regurgitation present. Echo free space represents a pericardial fat pad. CONCLUSIONS -------- 1. Cardiac Arrest, stent, Impella placement: Follow up for post Impella removal. 2. There is severe global hypokinesis of LV . 3. Overall left ventricular systolic function is severely impaired with, an EF < 20%. 4. There is trace mitral regurgitation. 5. Trace tricuspid regurgitation present. 6. Echo free space represents a pericardial fat pad. CERTIFIED PROFESSIONAL CODER: Gregoria Angeles RDCS
[2020-09-19 18:42] LABS: Glucose,Whole Blood 123 mg/dL (75-99)
[2020-09-19] MEDS: CISATRACURIUM 200 MG in SODIUM CHLORIDE 0.9% 180 ML IV SCH (19:41)
[2020-09-19] MEDS: DOPamine DRIP 800 MG in DEXTROSE/WATER 1 250ML.BAG IV SCH (19:43)
[2020-09-19] MEDS: HEPARIN SODIUM,PORCINE/PF 5,000 UNIT/0.5 ML SYRINGE SQ SCH (20:39)
[2020-09-19 23:50] LABS: Glucose,Whole Blood 124 mg/dL (75-99)
[2020-09-20] MEDS: fentaNYL (PF). 1,000 MCG in SODIUM CHLORIDE 0.9% 80 ML IV SCH ×2 (00:14→04:17)
[2020-09-20] MEDS: IPRATROPIUM-ALBUTEROL 3 ML NEB INHALATION SCH ×7 (00:36→23:49)
[2020-09-20] MEDS: DOBUTamine DRIP 500 MG in DEXTROSE/WATER 1 250ML.BAG IV SCH ×2 (00:48→20:27)
[2020-09-20] MEDS: NOREPINEPHRINE 8 MG in SODIUM CHLORIDE 0.9% 250 ML IV SCH ×5 (02:18→22:38)
[2020-09-20] MEDS: CISATRACURIUM 200 MG in SODIUM CHLORIDE 0.9% 180 ML IV SCH ×3 (02:18→23:00)
[2020-09-20 04:20] LABS: HCT 34.5 % (39.0-53.0); MCH 33.2 pg (25.0-35.0); MCHC 34.9 g/dL (31.0-37.0); MCV 94.9 fL (80.0-100.0); Platelet Count 128 k/uL (150-450); RBC 3.63 m/uL (4.30-5.90); RDW 13.5 % (11.5-15.5); WBC 9.1 k/uL (3.8-10.6)
[2020-09-20] MEDS: ARTIFICIAL TEARS-HYPROMELLOSE DROPS 15 ML BTL BOTH EYES SCH ×6 (04:36→23:04)
[2020-09-20 04:37] LABS: Albumin 2.8 g/dL (3.5-5.0); Calcium 7.3 mg/dL (8.4-10.2); Potassium 4.2 mmol/L (3.5-5.1); Total Bilirubin 0.7 mg/dL (0.2-1.3); Total Protein 5.2 g/dL (6.3-8.2)
[2020-09-20 04:38] LABS: Prothrombin Time 10.7 sec (9.0-12.0)
[2020-09-20] MEDS: DOPamine DRIP 800 MG in DEXTROSE/WATER 1 250ML.BAG IV SCH (04:40)
[2020-09-20] MEDS ORDERED: fentaNYL (PF). 2,500 MCG in SODIUM CHLORIDE 0.9% 200 ML IV SCH (05:15)
[2020-09-20 05:43] LABS: Glucose,Whole Blood 124 mg/dL (75-99)
[2020-09-20 05:43] LABS: ABG HCO3 19 mmol/L (21-25); ABG PCO2 43 mmHg (35-45); ABG PH 7.24 (7.35-7.45); ABG PO2 88 mmHg (83-108); ABG TCO2 20 mmol/L (19-24); Allen Test Performed? Yes
[2020-09-20] MEDS: LEVOTHYROXINE 50 MCG TAB PO SCH (07:09)
--- NOTE | 2020-09-20 08:13 | XR ---
EXAMINATION TYPE: XR chest 1V portable DATE OF EXAM: 09/20/2020 Comparison: 09/19/2020 Clinical History: 59-year-old male Tube placement Findings: ET tube tip at the level of medial clavicular heads. NG tube extends beyond the field of view. The th oracoabdominal junction is cut off from the [id number]. Patient is rotated toward the left. We see continued left perihilar and right basilare consolidation. Impression: Limited, rotated exam. The thoracoabdominal junction is also cut off on the image. Continued left hil ar and right lower lung airspace disease.
[2020-09-20] MEDS ORDERED: PIPERACILLIN-TAZOBACTAM 3.375 GM in SODIUM CHLORIDE 0.9% 100 ML IVPB SCH (08:15)
--- NOTE | 2020-09-20 08:53 | P.PN ---
Subjective Progress Note Date: 09/19/20 09/19/2020: Patient was seen for a follow-up. Patient's family was also present today. Nurse was also present. Patient continues to be extremely critically sick. Still not able to be able to obtain CAT scan. Patient currently on multiple pressors including dobutamine 3.5 mcg/kg, dopamine 2.5 mcg/kg, Levophed 40 mcg/m. Patient is also on Nimbex 0.5 mcg/kg, propofol 60 mcg/kg and fentanyl 2 mg/kg. Impella has been removed earlier today. 09/18/2020: Patient was seen for a follow-up. Please refer to Dr. Fadi Johnson note for details. Patient came to the hospital with cardiac arrest. Exact downtime unclear, although some report states 20 minutes. Patient had acute DE, for which he underwent cardiac stenting. At present patient is on sedation with propofol 70 g, which is a high dose. He has a cardiac device, which prevents him from getting computed tomography scan. Per nursing report, when sedation is decreased, he does move all 4 extremities randomly, although not purposefully. He did open his eyes. At present patient is sedated. Objective - Vital Signs Vital signs: Vital Signs Temp 98.9 F 09/20/20 08:00 Pulse 100 09/20/20 08:15 Resp 28 H 09/20/20 08:15 BP 109/66 09/20/20 08:15 Pulse Ox 95 09/20/20 08:15 Intake & Output 09/19/20 09/20/20 09/20/20 18:59 06:59 18:59 Intake Total 2629.314 3137.866 395.403 Output Total 61 30 510 Balance 2568.314 3107.866 -114.597 Weight 126 kg 134.6 kg Intake: IV 867 876 146 Pressure Bag 252 36 6 Sodium Chloride 0.9% 1, 615 840 140 000 ml @ 70 mls/hr IV . [id number] [facility] Rx#:[id number] Intake, IV Titration 9487.373 7389.866 249.403 Amount Cisatracurium 200 mg In 115.566 57.845 Sodium Chloride 0.9% 180 ml @ 2 MCG/KG/MIN 14.832 mls/hr IV .[id number] [facility] Rx #:[id number] DOBUTamine DRIP 500 mg In 250 Dextrose/Water 1 250ml. bag @ 2.5 MCG/KG/MIN 10. 206 mls/hr IV .Q24H [facility] Rx#:[id number] DOPamine DRIP 800 mg In 225.58 Dextrose/Water 1 250ml. bag @ 2.5 MCG/KG/MIN 5. 794 mls/hr IV .Q24H [facility] Rx#:[id number] Norepinephrine 8 mg In 883.012 774.000 191.558 Sodium Chloride 0.9% 250 ml @ 0.05 MCG/KG/MIN 13. 166 mls/hr IV .[id number] [facility] Rx#:[id number] fentaNYL (PF). 1,000 mcg 279.632 289.816 In Sodium Chloride 0.9% 80 ml @ Per Protocol IV . Q0M [facility] Rx#:[id number] propofoL 1,000 mg In 469.670 476.904 Empty Bag 1 bag @ Titrate IV .Q0M [facility] Rx#: [id number] Tube Feeding 70 100 Other 60 30 Output: Gastric Drainage 500 Urine 61 30 10 Other: Voiding Method Indwelling Catheter Indwelling Catheter ABP, PAP, CO, CI - Last Documented Arterial Blood Pressure 112/46 - Exam Examination deferred, as patient is on high sedation, paralyzing agent, therefore exam limited. Pupils are round and equal. Sluggishly reacting. - Labs CBC & Chem 7: 09/20/20 04:05 09/20/20 04:05 Labs: Abnormal Lab Results - Last 24 Hours (Table) 09/18/20 09/19/20 09/19/20 Range/Units 10:43 11:19 18:40 RBC (4.30-5.90) m/uL Hgb (13.0-17.5) gm/dL Hct (39.0-53.0) % Plt Count (150-450) k/uL Haptoglobin <8.0 L (31.2-198.0) mg/dL ABG pH (7.35-7.45) ABG HCO3 (21-25) mmol/L Chloride (98-107) mmol/L Carbon Dioxide (22-30) mmol/L BUN (9-20) mg/dL Creatinine (0.66-1.25) mg/dL Glucose (74-99) mg/dL POC Glucose (mg/dL) 104 H 123 H (75-99) mg/dL Calcium (8.4-10.2) mg/dL Lactate Dehydrogenase (313-618) U/L Total Protein (6.3-8.2) g/dL Albumin (3.5-5.0) g/dL 09/19/20 09/20/20 09/20/20 Range/Units 23:48 04:05 04:05 RBC 3.63 L (4.30-5.90) m/uL Hgb 12.0 L (13.0-17.5) gm/dL Hct 34.5 L (39.0-53.0) % Plt Count 128 L (150-450) k/uL Haptoglobin (31.2-198.0) mg/dL ABG pH (7.35-7.45) ABG HCO3 (21-25) mmol/L Chloride 108 H (98-107) mmol/L Carbon Dioxide 18 L (22-30) mmol/L BUN 49 H (9-20) mg/dL Creatinine 6.51 H (0.66-1.25) mg/dL Glucose 127 H (74-99) mg/dL POC Glucose (mg/dL) 124 H (75-99) mg/dL Calcium 7.3 L (8.4-10.2) mg/dL Lactate Dehydrogenase 1490 H (313-618) U/L Total Protein 5.2 L (6.3-8.2) g/dL Albumin 2.8 L (3.5-5.0) g/dL 09/20/20 09/20/20 Range/Units 05:38 05:42 RBC (4.30-5.90) m/uL Hgb (13.0-17.5) gm/dL Hct (39.0-53.0) % Plt Count (150-450) k/uL Haptoglobin (31.2-198.0) mg/dL ABG pH 7.24 L (7.35-7.45) ABG HCO3 19 L (21-25) mmol/L Chloride (98-107) mmol/L Carbon Dioxide (22-30) mmol/L BUN (9-20) mg/dL Creatinine (0.66-1.25) mg/dL Glucose (74-99) mg/dL POC Glucose (mg/dL) 124 H (75-99) mg/dL Calcium (8.4-10.2) mg/dL Lactate Dehydrogenase (313-618) U/L Total Protein (6.3-8.2) g/dL Albumin (3.5-5.0) g/dL Microbiology - Last 24 Hours (Table) 09/18/20 10:38 Blood Culture - Preliminary Blood No Growth after 24 hours 09/18/20 10:45 Blood Culture - Preliminary Blood No Growth after 24 hours Assessment and Plan Assessment: * Encephalopathy due to anoxia (cardiac arrest and unsure exact down time, at least 20 minutes or slightly longer). Also component of encephalopathy due to medication effect (propofol) and metabolic encpehalopathy (Acute kidney injury, elevated LFT's, elevated sugar). Per nurse once off sedation he is moving all extremities. * Cardiac arrest (initial rhythm is V-fib) * STEMI s/p PCI to circumflex and impella placement * Acute kidney injury * Elevated liver function test (with AST 292 and ALT 287) likely reactive * Elevated sugar * Congestive heart failure * Cardiomegaly Plan: Patient continues to be extremely critical condition because of cardiac status. Exam limited because of patient on high-dose sedation, and paralyzing agent Nimbex. Patient will undergo a sedation holiday tomorrow and we will reassess. Discussed with family in detail. EEG revealed mild to moderate background slowing consistent with encephalopathy. No epileptiform activity seen. Await CT of the head. Per the patient's nurse the patient is still unstable at this moment, as he has cardiac device, and cannot move the patient. Continue close neuro checks. Ammonia level 10. 2-D echo revealed presence of Impella device. Left ventricle severely dilated. Severe global hypokinesis of the left ventricle, EF is <20%. Cardiology is on board. Will defer the rest of the medical management to the ICU team and primary team. Neurology will continue to follow. The condition is very guarded.
[2020-09-20] MEDS: ATORVASTATIN 80 MG TAB PO SCH (09:00)
[2020-09-20] MEDS: METOCLOPRAMIDE 5 MG/ML 2 ML VIAL IVP SCH ×4 (09:00→23:44)
[2020-09-20] MEDS: ASPIRIN 81 MG PO SCH (09:00)
[2020-09-20] MEDS: CHLORHEXIDINE GLUCONATE 15 ML CUP MUCOUS MEM SCH ×2 (09:01→19:51)
[2020-09-20] MEDS: CLOPIDOGREL 75 MG TAB PO SCH (09:01)
[2020-09-20] MEDS: HEPARIN SODIUM,PORCINE/PF 5,000 UNIT/0.5 ML SYRINGE SQ SCH ×2 (09:01→19:51)
[2020-09-20] MEDS ORDERED: FUROSEMIDE 10 MG/ML 10 ML VIAL IV STA (10:12)
--- NOTE | 2020-09-20 10:19 | P.PN ---
Subjective Progress Note Date: 09/20/20 Principal diagnosis: Cardiac arrest. Pulmonary consult dated 09/17/2020. 59-year-old male who apparently had an vov-vx-bwpjozck cardiac arrest. EMS was called. His provided is danger chest compressions. When EMS arrived, the patient was in ventricular fibrillation arrest. The patient apparently started having chest compressions, received 3 defibrillations, and 2 rounds of epinephrine. The patient was apparently then intubated in the emergency room by the emergency room physician. The patient was taken to the Administrator. The patient had a stent placed in his circumflex coronary artery. Currently, he's on the ventilator. He is on the volume assist control mode, tidal volume 500, rate 24, FiO2 40%, PEEP of 8. Blood gases on the same settings, except 50%, patricia wed PaO2 of 127 pCO2 of 40, and a pH 7.36. The patient remains on a Lasix drip at 10 mg an hour saline at 150 mL an hour, propofol at 40 mcg/kg/m, norepinephrine at 2 mcg/m. We are going to do a daily interruption of sedation to evaluate the patient's neurologic status. In addition, the patient will need an EEG, and neurology consultation. We'll attempt to wean the norepinephrine. White count 11.4, hemoglobin, hematocrit, and platelet count all normal. PT 15.4, INR 1.5, PTT 52, and d-dimer greater than 34.10. Sodium 141, potassium 3.8, chlorides 107, CO2 23, anion gap 11, BUN 25, and creatinine 1.32. AST 347, ALT is 296, and LDH 2314. Troponins were 0.238 and 3.510. Chest x-rays co nsistent with cardiomegaly, and CHF. Progress note dated 09/18/2020. 59-year-old male with a history of kay-ei-egnoeiws cardiac arrest. The patient may have had a prolonged period of resuscitation. The patient was receiving bystander CPR by his . EMS arrived, and continue with chest compressions, defibrillation, and 2 rounds of epinephrine. The patient was intubated in the emergency department by the emergency room physician. The patient was taken to the catheterization laboratory. His stent placement in circumflex coronary artery, and also, an Impella device was inserted. Currently, white count 12.5, hemoglobin 14.3, hematocrit 42.8, and platelet count 168,000. Blood gases show pO2 70, pCO2 35, and a pH is 7.42. His ventilator settings include the volume assist control mode, rate 24, tidal volume 500, FiO2 50%, PEEP of 10. The patient remains on dobutamine at 3 g kilogram per minute, propofol at 70 mcg/kg/m, saline at 125 mL an hour, and heparin via weightbase protocol. Tube feedings has not yet been started. Hopefully, the Impella can be removed today. Sodium 143, potassium 3.1, chlorides 111, CO2 22, anion gap 10, BUN 27, creatinine 1.78. Other than cardiomegaly, the chest x-ray looks pretty good. Progress note dated 09/19/2020. 59-year-old male with a history of xuq-aj-wpdsnhjk cardiac arrest. The patient appears to have a significantly prolonged period of resuscitation, and may not have received proper oxygenation before arriving in the emergency room. The patient initially had bystander CPR by his . EMS arrived, and provided chest compressions. The patient was defibrillated 3 and received 2 rounds of epinephrine. The patient was not intubated until they arrived in the emergency department. The patient was taken to the catheterization laboratory. The patient is stent placed in his circumflex coronary artery. In addition, an Imp lizebth device was inserted, and that was removed yesterday. Currently, the patient's on the volume assist control mode rate of 24, to be increased up to 28, tidal volume 500, FiO2 50%, PEEP of 15. The FiO2 be dropped down to 40%. Arterial blood gases show pO2 of 109, pCO2 of 52, and a pH is 7.23. Currently, the patient's on saline 75 mL an hour, dopamine at 2.5 mcg/kg/m, dobutamine at 3.5 mcg/kg/m, norepinephrine at 40 mcg/m, propofol at 60 mcg/kg/m, fentanyl at 2 mcg/kg/h, heparin weight based protocol, and Nimbex at 0.5 mcg/kg/m, with oafbp-le-quoq monitoring. Nephrology will be consulted for worsening renal function. In addition, we'll start the patient on tube feeds. White count is 13.7, hemoglobin 13.5, hematocrit 38.9, platelet count 159,000. Sodium 141, potassium 4.3, chlorides 109, CO2 21, anion gap 11, BUN and creatinine are 38 and 3.38. Chest x-ray shows bibasilar infiltrates and/or atelectasis, right greater than left. Progress note dated 09/20/2020. 59-year-old male with a history of izf-vy-hzosvoxc cardiac arrest. The patient name sustained significant anoxic brain injury. He remains on mechanical ventilator. He is on the volume assist control mode, rate 28 tidal volume 500, FiO2 40%, PEEP of 15. Blood gases showed pO2 of 88, pCO2 43, and a pH is 7.24. These blood gases are consistent with a mild metabolic acidosis. The patient remains on saline at 70 mL an hour, dopamine at 2.5 mcg/kg/m, dobutamine at 3.5 mcg/kg/m, norepinephrine 33 mcg/m, Nimbex has been weaned off, propofol 50 mcg/kg/m, fentanyl 1 mcg/kg/h, and tube feedings are currently on hold because of high residuals. The patient will have a PICC line placed. The patient's currently on Zosyn. Microbiology is negative. Echocardiogram shows an ejection fraction of less than 20%. He'll be started on Reglan. After he received Reglan, tube feeds will be resumed. White count is 9.1, hemoglobin 12, hematocrit 34.5, and platelet count 128,000. Sodium 139, potassium 4.2, chlorides 108, CO2 18, anion gap 13, BUN 49, with a creatinine 6.51. Chest x- ray shows left perihilar and right lower lobe infiltrates, likely consistent with pneumonia. Objective - Vital Signs Vital signs: Vital Signs Temp 98.9 F 09/20/20 08:00 Pulse 105 H 09/20/20 09:15 Resp 28 H 09/20/20 09:15 BP 113/63 09/20/20 09:15 Pulse Ox 94 L 09/20/20 09:15 Intake & Output 09/19/20 09/20/20 09/20/20 18:59 06:59 18:59 Intake Total 2629.314 3137.866 762.024 Output Total 61 30 515 Balance 2568.314 3107.866 247.024 Weight 126 kg 134.6 kg Intake: IV 867 876 219 Pressure Bag 252 36 9 Sodium Chloride 0.9% 1, 615 840 210 000 ml @ 70 mls/hr IV . [id number] [facility] Rx#:[id number] Intake, IV Titration 6630.950 3575.866 423.024 Amount Cisatracurium 200 mg In 115.566 57.845 Sodium Chloride 0.9% 180 ml @ 2 MCG/KG/MIN 14.832 mls/hr IV .[id number] [facility] Rx #:[id number] DOBUTamine DRIP 500 mg In 250 Dextrose/Water 1 250ml. bag @ 2.5 MCG/KG/MIN 10. 206 mls/hr IV .Q24H [facility]OR[facility]NA Rx#:[id number] DOPamine DRIP 800 mg In 225.58 Dextrose/Water 1 250ml. bag @ 2.5 MCG/KG/MIN 5. 794 mls/hr IV .Q24H [facility] Rx#:[id number] Norepinephrine 8 mg In 883.012 774.000 258.000 Sodium Chloride 0.9% 250 ml @ 0.05 MCG/KG/MIN 13. 166 mls/hr IV .[id number] [facility] Rx#:[id number] fentaNYL (PF). 1,000 mcg 279.632 289.816 In Sodium Chloride 0.9% 80 ml @ Per Protocol IV . Q0M [facility] Rx#:[id number] fentaNYL (PF). 2,500 mcg 7.179 In Sodium Chloride 0.9% 200 ml @ Per Protocol IV .Q0M [facility] Rx#:[id number] propofoL 1,000 mg In 469.670 476.904 100 Empty Bag 1 bag @ Titrate IV .Q0M JOR[facility]NA Rx#: [id number] Tube Feeding 70 100 Other 60 30 120 Output: Gastric Drainage 500 Urine 61 30 15 Other: Voiding Method Indwelling Catheter Indwelling Catheter Indwelling Catheter ABP, PAP, CO, CI - Last Documented Arterial Blood Pressure 111/54 - Exam No acute distress, sedated, with possible anoxic brain injury. The patient has an orally placed endotracheal tube. With a sedation holiday, although the patient makes no purposeful movements, he does move all 4 extremities. HEENT examination is grossly unremarkable. Pupils sluggishly reactive. Neck supple. Full range of motion. No adenopathy thyromegaly or neck vein distention. Cardiovascular examination reveals regular rhythm rate. S1-S2 normal. No S3 or S4. No discernible murmur noted. Heart sounds distant. Heart rate 105 bpm. Lungs reveal scattered rhonchi and crackles. Breath sounds equal. No wheezes. Abdomen soft but without bowel sounds. No obvious masses or tenderness. Extremities are intact. No cyanosis clubbing or edema. Skin is without rash or lesion. Neurologic examination cannot be properly assessed as the patient's heavily sedated and paralyzed with propofol, and fentanyl. - Labs CBC & Chem 7: 09/20/20 04:05 09/20/20 04:05 Labs: Abnormal Lab Results - Last 24 Hours (Table) 09/18/20 09/19/20 09/19/20 Range/Units 10:43 11:19 18:40 RBC (4.30-5.90) m/uL Hgb (13.0-17.5) gm/dL Hct (39.0-53.0) % Plt Count (150-450) k/uL Haptoglobin <8.0 L (31.2-198.0) mg/dL ABG pH (7.35-7.45) ABG HCO3 (21-25) mmol/L Chloride (98-107) mmol/L Carbon Dioxide (22-30) mmol/L BUN (9-20) mg/dL Creatinine (0.66-1.25) mg/dL Glucose (74-99) mg/dL POC Glucose (mg/dL) 104 H 123 H (75-99) mg/dL Calcium (8.4-10.2) mg/dL Lactate Dehydrogenase (313-618) U/L Total Protein (6.3-8.2) g/dL Albumin (3.5-5.0) g/dL 09/19/20 09/20/20 09/20/20 Range/Units 23:48 04:05 04:05 RBC 3.63 L (4.30-5.90) m/uL Hgb 12.0 L (13.0-17.5) gm/dL Hct 34.5 L (39.0-53.0) % Plt Count 128 L (150-450) k/uL Haptoglobin (31.2-198.0) mg/dL ABG pH (7.35-7.45) ABG HCO3 (21-25) mmol/L Chloride 108 H (98-107) mmol/L Carbon Dioxide 18 L (22-30) mmol/L BUN 49 H (9-20) mg/dL Creatinine 6.51 H (0.66-1.25) mg/dL Glucose 127 H (74-99) mg/dL POC Glucose (mg/dL) 124 H (75-99) mg/dL Calcium 7.3 L (8.4-10.2) mg/dL Lactate Dehydrogenase 1490 H (313-618) U/L Total Protein 5.2 L (6.3-8.2) g/dL Albumin 2.8 L (3.5-5.0) g/dL 09/20/20 09/20/20 Range/Units 05:38 05:42 RBC (4.30-5.90) m/uL Hgb (13.0-17.5) gm/dL Hct (39.0-53.0) % Plt Count (150-450) k/uL Haptoglobin (31.2-198.0) mg/dL ABG pH 7.24 L (7.35-7.45) ABG HCO3 19 L (21-25) mmol/L Chloride (98-107) mmol/L Carbon Dioxide (22-30) mmol/L BUN (9-20) mg/dL Creatinine (0.66-1.25) mg/dL Glucose (74-99) mg/dL POC Glucose (mg/dL) 124 H (75-99) mg/dL Calcium (8.4-10.2) mg/dL Lactate Dehydrogenase (313-618) U/L Total Protein (6.3-8.2) g/dL Albumin (3.5-5.0) g/dL Microbiology - Last 24 Hours (Table) 09/18/20 10:38 Blood Culture - Preliminary Blood No Growth after 24 hours 09/18/20 10:45 Blood Culture - Preliminary Blood No Growth after 24 hours Assessment and Plan Assessment: Status post ggm-le-bcqsftdy cardiopulmonary arrest, secondary to ST segment elevation myocardial infarction, status post cardiopulmonary resuscitation with return of spontaneous circulation, and stent placement in the circumflex coronary artery, and placement of Impella device. Rule out anoxic brain injury. Severe ischemic cardiomyopathy with an ejection fraction of less than 20%. Acute kidney injury, possibly related to ATN. Congestive hepatopathy and shock liver. History of hypertension. History of hypothyroidism. Possible bilateral pneumonia. Plan: Plan dated 09/17/2020. We will attempt to wean the patient off the norepinephrine. We'll also do a thomas ly interruption of sedation. In addition, we'll try to turn down the IV fluids. Chest x-ray clearly shows congestive heart failure. In addition, the patient will have a neurology consult and EEG. Additional recommendations and suggestions are forthcoming. Prognosis is very guarded. We will continue to follow and make recommendations where appropriate. Plan dated 09/18/2020. Currently, the patient's gas exchange is reasonable. Chest x-ray shows cardiomegaly. The patient remains on dobutamine at 3 mcg/kg/m. The patient has been sedated with propofol at 70 mcg/kg/m. Hopefully, the Impella device will come out today. Once that cell, it'll be easier to wean the patient. Additional recommendations and suggestions are forthcoming. I likely will do a daily interruption of sedation anyway. Neurology has been consulted. EEG was consistent with mild to moderate encephalopathy. Prognosis is guarded. We will continue to follow and make recommendations where appropriate. Plan dated 09/19/2020. Currently, the patient's doing worse. Patient's on numerous strips including dopamine, dobutamine, norepinephrine, propofol, fentanyl, heparin, and Nimbex. The patient has developed acute kidney injury, possibly related to ATN. In addition, the patient's ejection fraction of less than 20%. His prognosis is very poor. We'll have discussions with his at this point. Neurology has seen the patient. Cardiology is also involved in the care of this patient. We will continue to follow make recommendations where appropriate. Prognosis is very guarded. Plan dated 09/20/2020. Currently, the patient's manifesting signs and symptoms of multiorgan system failure. Currently, organ involvement with the heart, lungs, kidneys, and brain. The patient's on multiple drips, including dopamine, the beginning, norepinephrine, propofol, and fentanyl. The patient will get Reglan 10 mg 4 times a day, we will resume tube needs. Patient's currently on Zosyn 3.375 g every 12. Microbiology is negative. A PICC line will be placed. I will call the Luiza, give her an update. Overall prognosis is very poor. If she wants to continue life support, I would probably aspirin early trach and PEG tube placement. Time with Patient: Greater than 30
--- NOTE | 2020-09-20 10:21 | P.PN ---
Subjective Progress Note Date: 09/20/20 HISTORY OF PRESENT ILLNESS: This is a 59-year-old male with a past medical history significant for hypertension. Patient does not follow with a county home demonstration agent regularly. Patient apparently had a cardiac arrest at home. provided CPR. When EMS arrived the patient was found to be in V. fib. Patient received defibrillation 3 and epi 2. Patient was found to have ST elevation on his EKG and was taken to the rn cardiac cath upon arrival to the hospital with Dr. Antoine Patient underwent PCI to the circumflex with impella placement. Patient examined this morning at the bedside in the intensive care unit. Patient remains intubated on mechanical ventilation. He is on Levophed for vasopressor support. Telemetry reveals sinus mechanism with heart rate in the 70s. 09/18/2020 Patient examined this morning at the bedside. Patient remains sedated on mechanical ventilation. Patient has impella device to right groin. He remains on a dobutamine drip. Patient receiving IV Lasix 40 mg every 8 hours. 09/19/2020 Patient examined this morning in the intensive care unit. Patient underwent removal of impella yesterday with Dr. Antoine. Per nursing, patient became asynchronous with the ventilator and was placed on Nimbex. Patient is currently on FiO2 of 40%. PEEP was increased to 17. He remains on dobutamine at 3.5mcg/kg/min, dopamine at 2.5mcg/kg/min, and Levophed at 40mcg. blood pressure 105/52. Patient with marginal urine output. Chest x-ray today reveals developing right lower lobe infiltrate. Correlate for atelectasis. Pneumonia could be considered. Developing left pleural effusion. Echocardiogram completed revealing ejection fraction less than 20% with severe global hypokinesis of LV. Osmel function worsening today with a creatinine of 3.39. 09/20/2020 Patient examined this morning at the bedside in the intensive care unit. Patient remains mechanically ventilated with an FiO2 of 40%. Patients blood pressure remains marginal this morning. He remains on vasopressor support. Patient is currently on dobutamine, dopamine, and norepinephrine. Telemetry reveals sinus tachycardia with a rate in the low 100s. Creatinine today has increased to 6.51. Escalate surgery has been consult for placement of hemodialysis catheter. PHYSICAL EXAM: VITAL SIGNS: Reviewed. GENERAL: Well-developed in no acute distress-sedated on mechanical ventilation NECK: Supple. No JVD or thyromegaly LUNGS: Respirations even and unlabored. Lungs diminished with scattered rhonchi HEART: Regular rate and rhythm. S1 and S2 heard. EXTREMITIES: No clubbing or cyanosis. No lower extremity edema. ASSESSMENT: STEMI, s/p PCI to circumflex and impella placement V-fib arrest Acute systolic heart failure, EF 20% Acute kidney injury Elevated LFTs Hematuria versus myoglobinuria, suspect secondary to mechanical lysis of RBC from impella, resolved Acute hypoxic respiratory failure requiring mechanical ventilation Hypotension requiring vasopressor support PLAN: Continue current cardiac medications Continue supportive care Prognosis remains poor Further recommendations pending patient course Nurse practitioner note has been reviewed by physician. Signing provider agrees with the documented findings, assessment, and plan of care. Objective - Vital Signs Vital signs: Vital Signs Temp 98.9 F 09/20/20 08:00 Pulse 105 H 09/20/20 09:15 Resp 28 H 09/20/20 09:15 BP 113/63 09/20/20 09:15 Pulse Ox 94 L 09/20/20 09:15 Intake & Output 09/19/20 09/20/20 09/20/20 18:59 06:59 18:59 Intake Total 2629.314 3137.866 762.024 Output Total 61 30 515 Balance 2568.314 3107.866 247.024 Weight 126 kg 134.6 kg Intake: IV 867 876 219 Pressure Bag 252 36 9 Sodium Chloride 0.9% 1, 615 840 210 000 ml @ 70 mls/hr IV . [id number] [facility] Rx#:[id number] Intake, IV Titration 7405.403 6046.866 423.024 Amount Cisatracurium 200 mg In 115.566 57.845 Sodium Chloride 0.9% 180 ml @ 2 MCG/KG/MIN 14.832 mls/hr IV .[id number] [facility] Rx #:[id number] DOBUTamine DRIP 500 mg In 250 Dextrose/Water 1 250ml. bag @ 2.5 MCG/KG/MIN 10. 206 mls/hr IV .Q24H [facility] Rx#:[id number] DOPamine DRIP 800 mg In 225.58 Dextrose/Water 1 250ml. bag @ 2.5 MCG/KG/MIN 5. 794 mls/hr IV .Q24H [facility] Rx#:[id number] Norepinephrine 8 mg In 883.012 774.000 258.000 Sodium Chloride 0.9% 250 ml @ 0.05 MCG/KG/MIN 13. 166 mls/hr IV .[id number] [facility] Rx#:[id number] fentaNYL (PF). 1,000 mcg 279.632 289.816 In Sodium Chloride 0.9% 80 ml @ Per Protocol IV . Q0M [facility] Rx#:[id number] fentaNYL (PF). 2,500 mcg 7.179 In Sodium Chloride 0.9% 200 ml @ Per Protocol IV .Q0M [facility] Rx#:[id number] propofoL 1,000 mg In 469.670 476.904 100 Empty Bag 1 bag @ Titrate IV .Q0M [facility] Rx#: [id number] Tube Feeding 70 100 Other 60 30 120 Output: Gastric Drainage 500 Urine 61 30 15 Other: Voiding Method Indwelling Catheter Indwelling Catheter Indwelling Catheter ABP, PAP, CO, CI - Last Documented Arterial Blood Pressure 111/54 - Labs CBC & Chem 7: 09/20/20 04:05 09/20/20 04:05 Labs: Abnormal Lab Results - Last 24 Hours (Table) 09/18/20 09/19/20 09/19/20 Range/Units 10:43 11:19 18:40 RBC (4.30-5.90) m/uL Hgb (13.0-17.5) gm/dL Hct (39.0-53.0) % Plt Count (150-450) k/uL Haptoglobin <8.0 L (31.2-198.0) mg/dL ABG pH (7.35-7.45) ABG HCO3 (21-25) mmol/L Chloride (98-107) mmol/L Carbon Dioxide (22-30) mmol/L BUN (9-20) mg/dL Creatinine (0.66-1.25) mg/dL Glucose (74-99) mg/dL POC Glucose (mg/dL) 104 H 123 H (75-99) mg/dL Calcium (8.4-10.2) mg/dL Lactate Dehydrogenase (313-618) U/L Total Protein (6.3-8.2) g/dL Albumin (3.5-5.0) g/dL 09/19/20 09/20/20 09/20/20 Range/Units 23:48 04:05 04:05 RBC 3.63 L (4.30-5.90) m/uL Hgb 12.0 L (13.0-17.5) gm/dL Hct 34.5 L (39.0-53.0) % Plt Count 128 L (150-450) k/uL Haptoglobin (31.2-198.0) mg/dL ABG pH (7.35-7.45) ABG HCO3 (21-25) mmol/L Chloride 108 H (98-107) mmol/L Carbon Dioxide 18 L (22-30) mmol/L BUN 49 H (9-20) mg/dL Creatinine 6.51 H (0.66-1.25) mg/dL Glucose 127 H (74-99) mg/dL POC Glucose (mg/dL) 124 H (75-99) mg/dL Calcium 7.3 L (8.4-10.2) mg/dL Lactate Dehydrogenase 1490 H (313-618) U/L Total Protein 5.2 L (6.3-8.2) g/dL Albumin 2.8 L (3.5-5.0) g/dL 09/20/20 09/20/20 Range/Units 05:38 05:42 RBC (4.30-5.90) m/uL Hgb (13.0-17.5) gm/dL Hct (39.0-53.0) % Plt Count (150-450) k/uL Haptoglobin (31.2-198.0) mg/dL ABG pH 7.24 L (7.35-7.45) ABG HCO3 19 L (21-25) mmol/L Chloride (98-107) mmol/L Carbon Dioxide (22-30) mmol/L BUN (9-20) mg/dL Creatinine (0.66-1.25) mg/dL Glucose (74-99) mg/dL POC Glucose (mg/dL) 124 H (75-99) mg/dL Calcium (8.4-10.2) mg/dL Lactate Dehydrogenase (313-618) U/L Total Protein (6.3-8.2) g/dL Albumin (3.5-5.0) g/dL Microbiology - Last 24 Hours (Table) 09/18/20 10:38 Blood Culture - Preliminary Blood No Growth after 24 hours 09/18/20 10:45 Blood Culture - Preliminary Blood No Growth after 24 hours
--- NOTE | 2020-09-20 10:26 | XR ---
EXAMINATION TYPE: XR abdomen 1V DATE OF EXAM: 09/20/2020 8:52 AM CLINICAL HISTORY: Abdominal distention TECHNIQUE: Single supine KUB image of the abdomen is obtained. COMPARISON: None. FINDINGS: There is an NG tube with its projecting over the region of the stomach. No dilated loops of large or small bowel to suggest bowel obstruction. Moderate stool and gas throughout the colon. Pres umed pelvic calcified phleboliths. IMPRESSION: 1. Nonspecific, nonobstructive bowel gas pattern. NG tube projects over the region of the stomach.
--- NOTE | 2020-09-20 11:22 | PN ---
PROGRESS NOTE Patient is seen for followup for acute kidney injury. He was admitted with cardiac arrest prior to coming to the hospital and the patient was found to be in VFib. Had emergency cardiac catheterization and coronary stent placement. He has been in cardiogenic shock. His EF was noted to be 20-25%. Patient has been on Levophed, the dose of which is slightly lower than yesterday. He is also maintained on dobutamine and dopamine. Urine output remains minimal. Serum creatinine is up to 6.5 today. The patient is currently on the vent. Family is present at bedside. EXAMINATION: Today blood pressure 108/48 heart rate 105 per minute, he is afebrile. Examination of the heart S1 and S2. Examination of the lungs bilateral breath sounds are heard. Abdomen is soft and nontender. Examination of the lower extremities shows no significant edema. GRANT MANAGER exam cannot be performed. LABS: Show sodium 139, potassium 4.2, chloride 108, CO2 is 18, BUN 49, serum creatinine 6.5, hemoglobin 12.1 g/dL. ASSESSMENT: 1. Acute kidney injury ATN secondary to cardiogenic shock, as well as post status post cardiac arrest and hypotension. Currently severely oliguric. We will plan for renal replacement therapy tomorrow given the significant worsening of renal function and development of metabolic acidosis. 2. Metabolic acidosis secondary to renal failure. I will add oral sodium bicarb and we will switch the saline to IV bicarb drip. 3. Status post cardiac arrest with emergency cardiac catheterization and coronary stent placement. 4. Status post acute myocardial infarction. 5. Severe cardiomyopathy, ejection fraction 20-25%. 6. Acute hypoxic respiratory failure. Currently on the vent. PLAN: Trial of Lasix IV x1, 60 mg to help with the urine output. Change IV fluids to IV bicarb and proceed with Vascular Surgery consult and dialysis catheter placement for renal replacement therapy to be started tomorrow. Family is present at bedside and they have been informed and they are agreeable at this time. MMODL / IJN: [id number] /
[2020-09-20 12:30] LABS: Glucose,Whole Blood 112 mg/dL (75-99)
[2020-09-20] MEDS: DEXTROSE 5% IN WATER 1,000 ML with SODIUM BICARB (1 MEQ/ML) 150 ML IV SCH (12:46)
[2020-09-20] MEDS ORDERED: LIDOCAINE 1% INJ 10MG/ML (20 ML MDV) ONE (13:11)
--- NOTE | 2020-09-20 14:44 | IR ---
PICC LINE PLACEMENT: HISTORY: Infection requiring long-term antibiotic therapy PROCEDURE: Ultrasound guidance of PICC line placement. PSYCHOLOGIST RESEARCH ASSISTANT: Dr. Hansen. COMPLICATIONS: None ANESTHESIA: 1. 1% Lidocaine locally. FINDINGS/TECHNIQUE: The procedure was explained to the patient. The risks, complications, benefits and alternatives were discussed and any questions were answered. Informed consent was obtained. The patient was placed supine on the fluoroscopic table and prepped and draped in the usual sterile fas ion. Utilizing a 21 gauge needle and sonographic guidance, access in the left basilic vein was achi eved and there is placement of a 0.018 guidewire. The vein is patent. A 5-F. sheath was placed over the guidewire. The guidewire and dilator were removed and a 5-F. Double lumen PICC line was placed through the sheath with the chest x-ray confirming the tip at the level of the SVC. The sheath was r emoved, the catheter was flushed and sutured into position. The patient was stable throughout the pr ocedure and remained stable upon discharge from the Department of Radiology. The vein puncture was patent under ultrasound. A keane scale image was obtained to document patency of the vein punctured. All elements of the maximal barrier technique were utilized. IMPRESSION: 1. Successful PICC line placement under ultrasound performed bedside within the ICU.
--- NOTE | 2020-09-20 15:00 | XR ---
EXAMINATION TYPE: XR chest 1V confirm line [facility] DATE OF EXAM: 09/20/2020 COMPARISON: Earlier today HISTORY: 59-year-old male PICC line placement TECHNIQUE: Single frontal view of the chest is obtained. FINDINGS: ET tube satisfactory. NG tube courses below the diaphragm. Left PICC tip at the mid to lower SVC. Hea rt upper limits of normal in size. Mild interstitial prominence is similar but there is been signific ant improvement in aeration of the left hilum and right base. IMPRESSION: 1. Left PICC tip at the mid to lower SVC. 2. Significant improvement in aeration at the left hilum and right base.
[2020-09-20] MEDS ORDERED: LIDOCAINE 2% (PF) 20 MG/ML 5 ML VIAL ONE (16:03)
[2020-09-20 17:56] LABS: Glucose,Whole Blood 113 mg/dL (75-99)
--- NOTE | 2020-09-20 18:35 | P.PN ---
Subjective Progress Note Date: 09/20/20 (delayed charting seen at 1445) Principal diagnosis: v-fib arrest Patient is a 59-year-old male with a history of hypertension, hypothyroidism who presented to the ER after cardiac arrest in the field. He was intubated and sedated he underwent a left heart cath with in [place] placement. He underwent a stent to the LAD. It appears that his down time in the field was approximately 30 minutes on review of the EMS run sheet. He has been in cardiogenic shock requiring dopamine, dobutamine, and levophed. He has required a Nimbex drip to maintain adequate ventilation. Echocardiogram demonstrated an EF of less than 20%. He demonstrated shock liver on arrival. He has also had progressive anuric renal failure, nephrology was consulted and plan is for HD on 09/21. Patient seen and examined at bedside. He is sedated on the vent, moving all 4 extremities but not following commands. Awaiting EEG results. General: non toxic, maximal distress, appears at stated age, obese Derm: warm, dry Head: atraumatic, normocephalic, symmetric Eyes: no lid lesion, anicteric sclera Mouth: no lip lesion, mucus membranes dry with lip cracking Cardiovascular: S1S2 reg, no murmur, positive posterior tibial pulse bilateral, Lungs: Course bilateral, no rhonchi, no rales , no accessory muscle use him on vent Abdominal: soft, nontender to palpation, no guarding, no appreciable organomegaly, [place] catheter without signs of urine production Ext: no gross muscle atrophy, 2+ edema, no contractures Neuro: moving all 4 extremities independently, not following commands, PERRL not tracking Psych: Sedated on vent V. fib arrest ST segment elevated myocardial infarction status post PCI to the circumflex and impella placement Acute systolic congestive heart failure Ischemic cardiomyopathy with ejection fraction less than 20% Cardiogenic shock Shock liver, resolved Acute hypoxic respiratory failure Acute kidney injury secondary to hypoperfusion and likely ATN Morbid obesity with BMI 37.7 Poor overall prognosis. Continue to wean vasopressors as able (dopamine, dobutamine, levophed). Cardio, neuro, critical care, and nephrology are following. Await EEG results. Continue current care DVT prophylaxis: heparin Discussed with: nursing, , multiple family members A total of 70 minutes was spent on the care of this complex patient more than 50% of the time was spent in counseling and care coordination. Objective - Vital Signs Vital signs: Vital Signs Temp 98.1 F 09/20/20 16:00 Pulse 86 09/20/20 18:00 Resp 25 H 09/20/20 18:00 BP 115/78 09/20/20 17:30 Pulse Ox 99 09/20/20 18:00 Intake & Output 09/19/20 09/20/20 09/20/20 18:59 06:59 18:59 Intake Total 2629.314 3137.866 1907.076 Output Total 61 30 545 Balance 2568.314 3107.866 1362.076 Weight 126 kg 134.6 kg Intake: IV 867 876 901 Dextrose 5% in Water 1, 375 000 ml @ 75 mls/hr IV . [id number] [facility] with Sodium Bicarb (1 Meq/ml) 150 ml Rx#:[id number] Pressure Bag 252 36 36 Sodium Chloride 0.9% 1, 615 840 490 000 ml @ 70 mls/hr IV . [id number] [facility] Rx#:[id number] Intake, IV Titration 9472.064 0415.866 836.076 Amount Cisatracurium 200 mg In 115.566 57.845 Sodium Chloride 0.9% 180 ml @ 2 MCG/KG/MIN 14.832 mls/hr IV .[id number] [facility] Rx #:[id number] DOBUTamine DRIP 500 mg In 250 Dextrose/Water 1 250ml. bag @ 2.5 MCG/KG/MIN 10. 206 mls/hr IV .Q24H [facility] Rx#:[id number] DOPamine DRIP 800 mg In 225.58 Dextrose/Water 1 250ml. bag @ 2.5 MCG/KG/MIN 5. 794 mls/hr IV .Q24H [facility] Rx#:[id number] Norepinephrine 8 mg In 883.012 774.000 516.000 Sodium Chloride 0.9% 250 ml @ 0.05 MCG/KG/MIN 13. 166 mls/hr IV .[id number] [facility] Rx#:[id number] fentaNYL (PF). 1,000 mcg 279.632 289.816 In Sodium Chloride 0.9% 80 ml @ Per Protocol IV . Q0M [facility] Rx#:[id number] fentaNYL (PF). 2,500 mcg 7.179 In Sodium Chloride 0.9% 200 ml @ Per Protocol IV .Q0M [facility] Rx#:[id number] propofoL 1,000 mg In 469.670 476.904 255.052 Empty Bag 1 bag @ Titrate IV .Q0M [facility] Rx#: [id number] Tube Feeding 70 100 20 Other 60 30 150 Output: Gastric Drainage 500 Urine 61 30 45 Other: Voiding Method Indwelling Catheter Indwelling Catheter Indwelling Catheter ABP, PAP, CO, CI - Last Documented Arterial Blood Pressure 107/53 - Labs CBC & Chem 7: 09/20/20 04:05 09/20/20 04:05 Labs: Abnormal Lab Results - Last 24 Hours (Table) 09/18/20 09/19/20 09/19/20 Range/Units 10:43 18:40 23:48 RBC (4.30-5.90) m/uL Hgb (13.0-17.5) gm/dL Hct (39.0-53.0) % Plt Count (150-450) k/uL Haptoglobin <8.0 L (31.2-198.0) mg/dL ABG pH (7.35-7.45) ABG HCO3 (21-25) mmol/L Chloride (98-107) mmol/L Carbon Dioxide (22-30) mmol/L BUN (9-20) mg/dL Creatinine (0.66-1.25) mg/dL Glucose (74-99) mg/dL POC Glucose (mg/dL) 123 H 124 H (75-99) mg/dL Calcium (8.4-10.2) mg/dL Lactate Dehydrogenase (313-618) U/L Total Protein (6.3-8.2) g/dL Albumin (3.5-5.0) g/dL 09/20/20 09/20/20 09/20/20 Range/Units 04:05 04:05 05:38 RBC 3.63 L (4.30-5.90) m/uL Hgb 12.0 L (13.0-17.5) gm/dL Hct 34.5 L (39.0-53.0) % Plt Count 128 L (150-450) k/uL Haptoglobin (31.2-198.0) mg/dL ABG pH 7.24 L (7.35-7.45) ABG HCO3 19 L (21-25) mmol/L Chloride 108 H (98-107) mmol/L Carbon Dioxide 18 L (22-30) mmol/L BUN 49 H (9-20) mg/dL Creatinine 6.51 H (0.66-1.25) mg/dL Glucose 127 H (74-99) mg/dL POC Glucose (mg/dL) (75-99) mg/dL Calcium 7.3 L (8.4-10.2) mg/dL Lactate Dehydrogenase 1490 H (313-618) U/L Total Protein 5.2 L (6.3-8.2) g/dL Albumin 2.8 L (3.5-5.0) g/dL 09/20/20 09/20/20 09/20/20 Range/Units 05:42 12:28 17:54 RBC (4.30-5.90) m/uL Hgb (13.0-17.5) gm/dL Hct (39.0-53.0) % Plt Count (150-450) k/uL Haptoglobin (31.2-198.0) mg/dL ABG pH (7.35-7.45) ABG HCO3 (21-25) mmol/L Chloride (98-107) mmol/L Carbon Dioxide (22-30) mmol/L BUN (9-20) mg/dL Creatinine (0.66-1.25) mg/dL Glucose (74-99) mg/dL POC Glucose (mg/dL) 124 H 112 H 113 H (75-99) mg/dL Calcium (8.4-10.2) mg/dL Lactate Dehydrogenase (313-618) U/L Total Protein (6.3-8.2) g/dL Albumin (3.5-5.0) g/dL Microbiology - Last 24 Hours (Table) 09/18/20 10:38 Blood Culture - Preliminary Blood No Growth after 48 hours 09/18/20 10:45 Blood Culture - Preliminary Blood No Growth after 48 hours 09/17/20 20:56 Gram Stain - Final Sputum Sputum Culture - Final
[2020-09-20] MEDS: PIPERACILLIN-TAZOBACTAM 3.375 GM in SODIUM CHLORIDE 0.9% 100 ML IVPB SCH (19:51)
--- NOTE | 2020-09-20 20:43 | PCN ---
PROCEDURE NOTE PREOPERATIVE DIAGNOSIS: Acute on chronic renal failure. POSTOPERATIVE DIAGNOSIS: Acute on chronic renal failure. PROCEDURE: Ultrasound-guided dialysis catheter placement in left femoral approach. Patient was seen in the intensive care unit. Left groin was prepped and drapes were applied in the usual sterile manner. 1% lidocaine was infiltrated into the groin. Micropuncture introduced to the left femoral vein. Micropuncture guidewire was passed and 4-[place]ov[place] dilator advanced on top of the guidewire. Then we passed a regular guidewire without any resistance. The dilator was advanced and sheath was advanced on the top of the guidewire. After that we placed the dilator and then we placed a dialysis catheter on top of the guidewire. Guidewire was removed, flushed with heparin and saline and hep-locked, secured with 3-0 nylon, dressing applied. Patient tolerated the procedure well. MMFAHAD / LEVN: [id number] /
--- NOTE | 2020-09-20 20:51 | CONS ---
CONSULTATION This is a 59-year-old gentleman. I was consulted for placement of urgent dialysis catheter. Patient's urine output is minimal. Serum creatinine is 6.5. The patient is on ventilator and patient is on Levophed. The patient came with cardiac arrest and patient went for heart catheterization and coronary stent placement. The patient was seen in the room. The patient has been intubated. Chest has crackles bilateral. Abdomen is soft, nontender. Patient has a catheter on the right side femoral vein. Femoral is 1+ on the left side. His lab findings are sodium 130, potassium 4.2, BUN is 49, and creatinine 6.5. ( ) is 12.1. PLAN: Placement of urgent dialysis catheter. Risks and complications discussed. MMODL / IJN: [id number] /
[2020-09-20 23:51] LABS: Glucose,Whole Blood 120 mg/dL (75-99)
[2020-09-21] MEDS: NOREPINEPHRINE 8 MG in SODIUM CHLORIDE 0.9% 250 ML IV SCH ×6 (01:54→20:37)
[2020-09-21] MEDS: IPRATROPIUM-ALBUTEROL 3 ML NEB INHALATION SCH ×6 (03:26→23:14)
[2020-09-21] MEDS: ARTIFICIAL TEARS-HYPROMELLOSE DROPS 15 ML BTL BOTH EYES SCH ×6 (03:28→23:36)
[2020-09-21] MEDS: DEXTROSE 5% IN WATER 1,000 ML with SODIUM BICARB (1 MEQ/ML) 150 ML IV SCH ×2 (03:29→18:29)
[2020-09-21 04:24] LABS: Basophils % (A) 0 %; Eosinophils # (A) 0.5 k/uL (0-0.7); Eosinophils % (A) 6 %; HCT 33.8 % (39.0-53.0); HGB 11.5 gm/dL (13.0-17.5); Lymphocytes # (A) 0.5 k/uL (1.0-4.8); Lymphocytes % (A) 6 %; MCH 32.6 pg (25.0-35.0); MCHC 34.2 g/dL (31.0-37.0); MCV 95.3 fL (80.0-100.0); Mean Platelet Volume 8.3; Monocytes # (A) 0.4 k/uL (0-1.0); Monocytes % (A) 5 %; Neutrophils # (A) 6.2 k/uL (1.3-7.7); Neutrophils % (A) 80 %; Platelet Count 127 k/uL (150-450); RBC 3.55 m/uL (4.30-5.90); RDW 13.8 % (11.5-15.5); WBC 7.7 k/uL (3.8-10.6)
[2020-09-21 05:05] LABS: ABG Base Excess -8.9 mmol/L; ABG HCO3 18 mmol/L (21-25); ABG Oxygen Saturation 95.4 % (94-97); ABG PCO2 41 mmHg (35-45); ABG PH 7.26 (7.35-7.45); ABG PO2 83 mmHg (83-108); ABG TCO2 19 mmol/L (19-24)
[2020-09-21 05:09] LABS: ALT <6 U/L (4-49); AST 50 U/L (17-59); African American GFR (CKD) 7 (>60 ml/min/1.73 sqM); Albumin 2.7 g/dL (3.5-5.0); Alkaline Phosphatase 87 U/L (38-126); Anion Gap 16 mmol/L; Blood Urea Nitrogen 56 mg/dL (9-20); Calcium 6.9 mg/dL (8.4-10.2); Carbon Dioxide 17 mmol/L (22-30); Chloride 104 mmol/L (98-107); Glucose 127 mg/dL (74-99); Magnesium 2.2 mg/dL (1.6-2.3); Non-African American GFR(CKD) 6 (>60 ml/min/1.73 sqM); Sodium 137 mmol/L (137-145)
[2020-09-21 05:57] LABS: Allen Test Performed? no
[2020-09-21] MEDS: LEVOTHYROXINE 50 MCG TAB PO SCH (06:17)
[2020-09-21] MEDS: METOCLOPRAMIDE 5 MG/ML 2 ML VIAL IVP SCH ×4 (06:17→23:41)
--- NOTE | 2020-09-21 08:17 | EEG ---
ELECTROENCEPHALOGRAM REPORT DATE OF SERVICE: 09/20/2020 PREAMBLE: This is a 59-year-old male with cardiac arrest and STEMI. This is this is a followup EEG. EEG FINDINGS: This is a 21 channel portable EEG recording patient utilizing 10/20 international system with referential and bipolar montages. Background consists of poorly developed and regulated moderate to low voltage activity in 1-2 hertz delta seen in bihemispheric region. Some 3-4 hertz activity and some occasional periods of generalized suppression was also seen. The background was slightly asymmetric with relatively higher amplitude activity seen sometimes in the left hemispheric region. After application of nailbed pressure, there was very brief improvement in the background with appearance of 5-6 hertz theta activity in the posterior region only for about 20 seconds. Different stages of sleep were not seen. No focal or generalized epileptiform activity was seen. IMPRESSION: This is an abnormal EEG due to background slowing of moderate to severe degree. This is slightly more asymmetric involving the right hemisphere as compared to the left. This is suggestive of generalized cerebral dysfunction as can be seen with anoxic or toxic metabolic encephalopathy or from underlying diffuse structural abnormality. No epileptiform activity was seen. When compared to the EEG from 09/17/2020, the background appears to have got worse. No epileptiform activity was seen. Followup EEG recommended, if clinically indicated. MMODL / LEVN: [id number] / JULY
--- NOTE | 2020-09-21 08:34 | XR ---
EXAMINATION TYPE: XR chest 1V portable DATE OF EXAM: 09/21/2020 COMPARISON: 09/20/2020 HISTORY: SOB, Follow Up FINDINGS: Indwelling tubes and catheters are unchanged. Increasing basilar atelectasis and/or infiltrates. Stable appearance of the cardio-mediastinal structures at this time. Pleural effusion unchanged. IMPRESSION: 1. Increasing basilar atelectasis and/or infiltrates. Clinical correlation and follow up until resol ution is recommended.
--- NOTE | 2020-09-21 09:27 | P.PN ---
Subjective Progress Note Date: 09/20/20 09/20/2020: Patient was seen for a follow-up. Patient's father, patient's and his [id number] were present. Nurse was also present. Patient currently on propofol 64 g. He is off fentanyl and Nimbex. According to nurse report, when she performed sedation holiday, patient was moving all 4 extremities randomly, trying to sit up, opened his eyes, but gaze was upwards. He did not follow any directions. He did not make any eye contact or tract with his vision. Patient is still on dobutamine 3.5 g, dopamine 2.5 mcg. 09/19/2020: Patient was seen for a follow-up. Patient's family was also present today. Nurse was also present. Patient continues to be extremely critically sick. Still not able to be able to obtain CAT scan. Patient currently on multiple pressors including dobutamine 3.5 mcg/kg, dopamine 2.5 mcg/kg, Levophed 40 mcg/m. Patient is also on Nimbex 0.5 mcg/kg, propofol 60 mcg/kg and fentanyl 2 mg/kg. Impella has been removed earlier today. 09/18/2020: Patient was seen for a follow-up. Please refer to Dr. Fadi Johnson note for details. Patient came to the hospital with cardiac arrest. Exact downtime unclear, although some report states 20 minutes. Patient had acute AK, for which he unde rwent cardiac stenting. At present patient is on sedation with propofol 70 g, which is a high dose. He has a cardiac device, which prevents him from getting computed tomography scan. Per nursing report, when sedation is decreased, he does move all 4 extremities randomly, although not purposefully. He did open his eyes. At present patient is sedated. Objective - Vital Signs Vital signs: Vital Signs Temp 98.1 F 09/20/20 16:00 Pulse 86 09/20/20 18:00 Resp 25 H 09/20/20 18:00 BP 115/78 09/20/20 17:30 Pulse Ox 99 09/20/20 18:00 Intake & Output 09/19/20 09/20/20 09/20/20 18:59 06:59 18:59 Intake Total 2629.314 3137.866 1907.076 Output Total 61 30 545 Balance 2568.314 3107.866 1362.076 Weight 126 kg 134.6 kg Intake: IV 867 876 901 Dextrose 5% in Water 1, 375 000 ml @ 75 mls/hr IV . [id number] [facility] with Sodium Bicarb (1 Meq/ml) 150 ml Rx#:[id number] Pressure Bag 252 36 36 Sodium Chloride 0.9% 1, 615 840 490 000 ml @ 70 mls/hr IV . [id number] [facility] Rx#:[id number] Intake, IV Titration 4953.201 1238.866 836.076 Amount Cisatracurium 200 mg In 115.566 57.845 Sodium Chloride 0.9% 180 ml @ 2 MCG/KG/MIN 14.832 mls/hr IV .[id number] [facility] Rx #:[id number] DOBUTamine DRIP 500 mg In 250 Dextrose/Water 1 250ml. bag @ 2.5 MCG/KG/MIN 10. 206 mls/hr IV .Q24H [facility] Rx#:[id number] DOPamine DRIP 800 mg In 225.58 Dextrose/Water 1 250ml. bag @ 2.5 MCG/KG/MIN 5. 794 mls/hr IV .Q24H [facility] Rx#:[id number] Norepinephrine 8 mg In 883.012 774.000 516.000 Sodium Chloride 0.9% 250 ml @ 0.05 MCG/KG/MIN 13. 166 mls/hr IV .[id number] [facility] Rx#:[id number] fentaNYL (PF). 1,000 mcg 279.632 289.816 In Sodium Chloride 0.9% 80 ml @ Per Protocol IV . Q0M [facility] Rx#:[id number] fentaNYL (PF). 2,500 mcg 7.179 In Sodium Chloride 0.9% 200 ml @ Per Protocol IV .Q0M [facility] Rx#:[id number] propofoL 1,000 mg In 469.670 476.904 255.052 Empty Bag 1 bag @ Titrate IV .Q0M [facility] Rx#: [id number] Tube Feeding 70 100 20 Other 60 30 150 Output: Gastric Drainage 500 Urine 61 30 45 Other: Voiding Method Indwelling Catheter Indwelling Catheter Indwelling Catheter ABP, PAP, CO, CI - Last Documented Arterial Blood Pressure 107/53 - Exam On examination patient is sedated at this time. His pupils are round and slightly reactive. Oculocephalics are absent. Corneals are present. Patient is breathing over the ventilator. He does have a gag. Tone is equal bilaterally. Reflexes are 2+ in the upper and lower limbs and plantars are probably downgoing. Some mild hiccups were noted. - Labs CBC & Chem 7: 09/21/20 04:12 09/21/20 04:12 Labs: Abnormal Lab Results - Last 24 Hours (Table) 09/18/20 09/19/20 09/19/20 Range/Units 10:43 18:40 23:48 RBC (4.30-5.90) m/uL Hgb (13.0-17.5) gm/dL Hct (39.0-53.0) % Plt Count (150-450) k/uL Haptoglobin <8.0 L (31.2-198.0) mg/dL ABG pH (7.35-7.45) ABG HCO3 (21-25) mmol/L Chloride (98-107) mmol/L Carbon Dioxide (22-30) mmol/L BUN (9-20) mg/dL Creatinine (0.66-1.25) mg/dL Glucose (74-99) mg/dL POC Glucose (mg/dL) 123 H 124 H (75-99) mg/dL Calcium (8.4-10.2) mg/dL Lactate Dehydrogenase (313-618) U/L Total Protein (6.3-8.2) g/dL Albumin (3.5-5.0) g/dL 09/20/20 09/20/20 09/20/20 Range/Units 04:05 04:05 05:38 RBC 3.63 L (4.30-5.90) m/uL Hgb 12.0 L (13.0-17.5) gm/dL Hct 34.5 L (39.0-53.0) % Plt Count 128 L (150-450) k/uL Haptoglobin (31.2-198.0) mg/dL ABG pH 7.24 L (7.35-7.45) ABG HCO3 19 L (21-25) mmol/L Chloride 108 H (98-107) mmol/L Carbon Dioxide 18 L (22-30) mmol/L BUN 49 H (9-20) mg/dL Creatinine 6.51 H (0.66-1.25) mg/dL Glucose 127 H (74-99) mg/dL POC Glucose (mg/dL) (75-99) mg/dL Calcium 7.3 L (8.4-10.2) mg/dL Lactate Dehydrogenase 1490 H (313-618) U/L Total Protein 5.2 L (6.3-8.2) g/dL Albumin 2.8 L (3.5-5.0) g/dL 09/20/20 09/20/20 09/20/20 Range/Units 05:42 12:28 17:54 RBC (4.30-5.90) m/uL Hgb (13.0-17.5) gm/dL Hct (39.0-53.0) % Plt Count (150-450) k/uL Haptoglobin (31.2-198.0) mg/dL ABG pH (7.35-7.45) ABG HCO3 (21-25) mmol/L Chloride (98-107) mmol/L Carbon Dioxide (22-30) mmol/L BUN (9-20) mg/dL Creatinine (0.66-1.25) mg/dL Glucose (74-99) mg/dL POC Glucose (mg/dL) 124 H 112 H 113 H (75-99) mg/dL Calcium (8.4-10.2) mg/dL Lactate Dehydrogenase (313-618) U/L Total Protein (6.3-8.2) g/dL Albumin (3.5-5.0) g/dL Microbiology - Last 24 Hours (Table) 09/18/20 10:38 Blood Culture - Preliminary Blood No Growth after 48 hours 09/18/20 10:45 Blood Culture - Preliminary Blood No Growth after 48 hours 09/17/20 20:56 Gram Stain - Final Sputum Sputum Culture - Final Assessment and Plan Assessment: * Encephalopathy due to anoxia (cardiac arrest and unsure exact down time, at least 20 minutes or slightly longer). Also component of encephalopathy due to medication effect (propofol) and metabolic encpehalopathy (Acute kidney injury, elevated LFT's, elevated sugar). Per nurse once off sedation he is moving all extremities. * Cardiac arrest (initial rhythm is V-fib) * STEMI s/p PCI to circumflex and impella placement * Acute kidney injury, worsening with BUN 14 and creatinine 6.51 * Elevated liver function test, now normal. * Congestive heart failure * Cardiomegaly Plan: * Patient continues to be severely encephalopathic. On sedation holiday, patient did move extremities, but did not make eye contact or followed any commands. Spoke to patient's , who was very adamant to know what was going on in his brain. Therefore stat EEG was performed today, which was abnormal due to background slowing of moderate to severe degree. This is slightly more asymmetric involving the right hemisphere as compared to the left. This is suggestive of generalized cerebral dysfunction as can be seen with anoxic or toxic metabolic encephalopathy or from underlying structural abnormality. No epileptiform activity was seen. When compared to the EEG from 09/17/2020, the background appears to have got worse. * Patient continues to be extremely critical condition because of cardiac status, renal failure as well as neurological status. * Await CT of the head. Per the patient's nurse the patient is still unstable at this moment due to multiple IV lines. * Continue close neuro checks. * Ammonia level 10. * 2-D echo revealed presence of Impella device. Left ventricle severely dilated. Severe global hypokinesis of the left ventricle, EF is <20%. Cardiology is on board. * Will defer the rest of the medical management to the ICU team and primary team.
--- NOTE | 2020-09-21 10:12 | P.PN ---
Subjective Progress Note Date: 09/21/20 HISTORY OF PRESENT ILLNESS: This is a 59-year-old male with a past medical history significant for hypertension. 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 Patient apparently had a cardiac arrest at home. provided CPR. When EMS arrived the patient was found to be in V. fib. Patient received defibrillation 3 and epi 2. Patient was found to have ST elevation on his EKG and was taken to the laborer plumbing upon arrival to the hospital with Dr. Antoine Patient underwent PCI to the circumflex with impella placement. Patient examined this morning at the bedside in the intensive care unit. Patient remains intubated on mechanical ventilation. He is on Levophed for vasopressor support. Telemetry reveals sinus mechanism with heart rate in the 70s. 09/18/2020 Patient examined this morning at the bedside. Patient remains sedated on mechanical ventilation. Patient has impella device to right groin. He remains on a dobutamine drip. Patient receiving IV Lasix 40 mg every 8 hours. 09/19/2020 Patient examined this morning in the intensive care unit. Patient underwent removal of impella yesterday with Dr. Antoine. Per nursing, patient became asynchronous with the ventilator and was placed on Nimbex. Patient is currently on FiO2 of 40%. PEEP was increased to 17. He remains on dobutamine at 3.5mcg/kg/min, dopamine at 2.5mcg/kg/min, and Levophed at 40mcg. blood pressure 105/52. Patient with marginal urine output. Chest x-ray today reveals developing right lower lobe infiltrate. Correlate for atelectasis. Pneumonia could be considered. Developing left pleural effusion. Echocardiogram completed revealing ejection fraction less than 20% with severe global hypokinesis of LV. Osmel function worsening today with a creatinine of 3.39. 09/20/2020 Patient examined this morning at the bedside in the intensive care unit. Patient remains mechanically ventilated with an FiO2 of 40%. Patients blood pressure remains marginal this morning. He remains on vasopressor support. Patient is currently on dobutamine, dopamine, and norepinephrine. Telemetry reveals sinus tachycardia with a rate in the low 100s. Creatinine today has increased to 6.51. Escalate surgery has been consult for placement of hemodialysis catheter. 09/21/2020 Patient remains in the intensive care unit on mechanical ventilation. Patient remains on vasopressor support. He is receiving IV levophed, dobutamine, and dopamine. BP 101/45. Heart rate near 100. PHYSICAL EXAM: VITAL SIGNS: Reviewed. GENERAL: Well-developed in no acute distress-sedated on mechanical ventilation NECK: Supple. No JVD or thyromegaly LUNGS: Respirations even and unlabored. Lungs diminished with scattered rhonchi HEART: Regular rate and rhythm. S1 and S2 heard. EXTREMITIES: No clubbing or cyanosis. No lower extremity edema. ASSESSMENT: STEMI, s/p PCI to circumflex and impella placement V-fib arrest Acute systolic heart failure, EF 20% Acute kidney injury Elevated LFTs Hematuria versus myoglobinuria, suspect secondary to mechanical lysis of RBC from impella, resolved Acute hypoxic respiratory failure requiring mechanical ventilation Hypotension requiring vasopressor support PLAN: Continue current cardiac medications Continue supportive care Prognosis remains poor Further recommendations pending patient course Nurse practitioner note has been reviewed by physician. Signing provider agrees with the documented findings, assessment, and plan of care. Objective - Vital Signs Vital signs: Vital Signs Temp 99.0 F 09/21/20 04:00 Pulse 100 09/21/20 08:49 Resp 28 H 09/21/20 07:00 BP 105/68 09/21/20 01:15 Pulse Ox 94 L 09/21/20 07:00 Intake & Output 09/20/20 09/21/20 09/21/20 18:59 06:59 18:59 Intake Total 3992.476 2470.406 245.129 Output Total 545 5 15 Balance 1214.210 8607.406 230.129 Weight 136.2 kg Intake: IV 901 936 78 Dextrose 5% in Water 1, 375 900 75 000 ml @ 75 mls/hr IV . [id number] [facility] with Sodium Bicarb (1 Meq/ml) 150 ml Rx#:[id number] Pressure Bag 36 36 3 Sodium Chloride 0.9% 1, 490 000 ml @ 70 mls/hr IV . [id number] [facility] Rx#:[id number] Intake, IV Titration 433.868 8494.406 117.129 Amount Cisatracurium 200 mg In 57.845 Sodium Chloride 0.9% 180 ml @ 2 MCG/KG/MIN 14.832 mls/hr IV .[id number] [facility] Rx #:[id number] DOBUTamine DRIP 500 mg In 250 Dextrose/Water 1 250ml. bag @ 2.5 MCG/KG/MIN 10. 206 mls/hr IV .Q24H [facility] Rx#:[id number] Norepinephrine 8 mg In 516.000 795.109 117.129 Sodium Chloride 0.9% 250 ml @ 0.05 MCG/KG/MIN 13. 166 mls/hr IV .[id number] [facility] Rx#:[id number] fentaNYL (PF). 2,500 mcg 7.179 In Sodium Chloride 0.9% 200 ml @ Per Protocol IV .Q0M [facility] Rx#:[id number] propofoL 1,000 mg In 255.052 495.297 Empty Bag 1 bag @ Titrate IV .Q0M [facility] Rx#: [id number] Tube Feeding 20 120 10 Other 150 90 40 Output: Gastric Drainage 500 Urine 45 5 15 Other: Voiding Method Indwelling Catheter Indwelling Catheter ABP, PAP, CO, CI - Last Documented Arterial Blood Pressure 101/45 - Labs CBC & Chem 7: 09/21/20 04:12 09/21/20 04:12 Labs: Abnormal Lab Results - Last 24 Hours (Table) 09/20/20 09/20/20 09/20/20 Range/Units 12:28 17:54 23:49 RBC (4.30-5.90) m/uL Hgb (13.0-17.5) gm/dL Hct (39.0-53.0) % Plt Count (150-450) k/uL Lymphocytes # (1.0-4.8) k/uL ABG pH (7.35-7.45) ABG HCO3 (21-25) mmol/L Carbon Dioxide (22-30) mmol/L BUN (9-20) mg/dL Creatinine (0.66-1.25) mg/dL Glucose (74-99) mg/dL POC Glucose (mg/dL) 112 H 113 H 120 H (75-99) mg/dL Calcium (8.4-10.2) mg/dL Total Protein (6.3-8.2) g/dL Albumin (3.5-5.0) g/dL 09/21/20 09/21/20 09/21/20 Range/Units 04:12 04:12 04:58 RBC 3.55 L (4.30-5.90) m/uL Hgb 11.5 L (13.0-17.5) gm/dL Hct 33.8 L (39.0-53.0) % Plt Count 127 L (150-450) k/uL Lymphocytes # 0.5 L (1.0-4.8) k/uL ABG pH 7.26 L (7.35-7.45) ABG HCO3 18 L (21-25) mmol/L Carbon Dioxide 17 L (22-30) mmol/L BUN 56 H (9-20) mg/dL Creatinine 8.99 H* (0.66-1.25) mg/dL Glucose 127 H (74-99) mg/dL POC Glucose (mg/dL) (75-99) mg/dL Calcium 6.9 L (8.4-10.2) mg/dL Total Protein 5.0 L (6.3-8.2) g/dL Albumin 2.7 L (3.5-5.0) g/dL Microbiology - Last 24 Hours (Table) 09/18/20 10:38 Blood Culture - Preliminary Blood No Growth after 48 hours 09/18/20 10:45 Blood Culture - Preliminary Blood No Growth after 48 hours 09/17/20 20:56 Gram Stain - Final Sputum Sputum Culture - Final
--- NOTE | 2020-09-21 10:45 | PN ---
PROGRESS NOTE The patient is seen for followup for acute kidney injury. The patient was admitted to the hospital with cardiac arrest and acute myocardial infarction and VFib. He was taken for cardiac catheterization and had coronary stent placed to LAD. He has been in cardiogenic shock. EF is about 20-25%. Patient is maintained on Levophed. He is on dobutamine and small dose of dopamine as well. He has no urine output. Renal function has progressively worsened with creatinine today up to 8.9. PHYSICAL EXAMINATION: On examination today, patient is sedated he is on the vent. Blood pressure 101/45, heart rate 100 per minute, he is afebrile. Examination of the heart S1, S2. Examination of the lungs, bilateral breath sounds are heard. Abdomen is soft, nontender. Examination of lower extremities shows no significant edema. 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 LAB: Show sodium 137, potassium 4.0, chloride 104, CO2 17, BUN 56, creatinine 8.9, hemoglobin 11.5 g/dL. ASSESSMENT: 1. Acute kidney injury oliguric acute tubular necrosis which is mostly ischemic, status post cardiac arrest and acute myocardial infarction. 2. Metabolic acidosis secondary to renal failure. 3. Status post cardiac arrest and emergency cardiac catheterization and coronary stent placement to LAD. 4. Status post acute myocardial infarction. 5. Cardiomyopathy, ejection fraction 20-25%. 6. Acute hypoxic respiratory failure. Maintained on the vent. PLAN: Hemodialysis today and will likely discontinue the bicarb drip tomorrow depending on the labs. The patient already has a femoral catheter. We will plan for another treatment tomorrow. Continue to avoid nephrotoxic agents. MMODL / IJN: [id number] /
--- NOTE | 2020-09-21 11:19 | P.PN ---
Subjective Progress Note Date: 09/21/20 Principal diagnosis: Cardiac arrest. Pulmonary consult dated 09/17/2020. 59-year-old male who apparently had an urn-gy-wqvmsabs cardiac arrest. EMS was called. His provided is danger chest compressions. When EMS arrived, the patient was in ventricular fibrillation arrest. The patient apparently started having chest compressions, received 3 defibrillations, and 2 rounds of epinephrine. The patient was apparently then intubated in the emergency room by the emergency room physician. The patient was taken to the [facility]. The patient had a stent placed in his circumflex coronary artery. Currently, he's on the ventilator. He is on the volume assist control mode, tidal volume 500, rate 24, FiO2 40%, PEEP of 8. Blood gases on the same settings, except 50%, patricia wed PaO2 of 127 pCO2 of 40, and a pH 7.36. The patient remains on a Lasix drip at 10 mg an hour saline at 150 mL an hour, propofol at 40 mcg/kg/m, norepinephrine at 2 mcg/m. We are going to do a daily interruption of sedation to evaluate the patient's neurologic status. In addition, the patient will need an EEG, and neurology consultation. We'll attempt to wean the norepinephrine. White count 11.4, hemoglobin, hematocrit, and platelet count all normal. PT 15.4, INR 1.5, PTT 52, and d-dimer greater than 34.10. Sodium 141, potassium 3.8, chlorides 107, CO2 23, anion gap 11, BUN 25, and creatinine 1.32. AST 347, ALT is 296, and LDH 2314. Troponins were 0.238 and 3.510. Chest x-rays co nsistent with cardiomegaly, and CHF. Progress note dated 09/18/2020. 59-year-old male with a history of xei-kq-opzqhvaw cardiac arrest. The patient may have had a prolonged period of resuscitation. The patient was receiving bystander CPR by his . EMS arrived, and continue with chest compressions, defibrillation, and 2 rounds of epinephrine. The patient was intubated in the emergency department by the emergency room physician. The patient was taken to the catheterization laboratory. His stent placement in circumflex coronary artery, and also, an Impella device was inserted. Currently, white count 12.5, hemoglobin 14.3, hematocrit 42.8, and platelet count 168,000. Blood gases show pO2 70, pCO2 35, and a pH is 7.42. His ventilator settings include the volume assist control mode, rate 24, tidal volume 500, FiO2 50%, PEEP of 10. The patient remains on dobutamine at 3 g kilogram per minute, propofol at 70 mcg/kg/m, saline at 125 mL an hour, and heparin via weightbase protocol. Tube feedings has not yet been started. Hopefully, the Impella can be removed today. Sodium 143, potassium 3.1, chlorides 111, CO2 22, anion gap 10, BUN 27, creatinine 1.78. Other than cardiomegaly, the chest x-ray looks pretty good. Progress note dated 09/19/2020. 59-year-old male with a history of jcv-ey-bkztuape cardiac arrest. The patient appears to have a significantly prolonged period of resuscitation, and may not have received proper oxygenation before arriving in the emergency room. The patient initially had bystander CPR by his . EMS arrived, and provided chest compressions. The patient was defibrillated 3 and received 2 rounds of epinephrine. The patient was not intubated until they arrived in the emergency department. The patient was taken to the catheterization laboratory. The patient is stent placed in his circumflex coronary artery. In addition, an Imp lizbeth device was inserted, and that was removed yesterday. Currently, the patient's on the volume assist control mode rate of 24, to be increased up to 28, tidal volume 500, FiO2 50%, PEEP of 15. The FiO2 be dropped down to 40%. Arterial blood gases show pO2 of 109, pCO2 of 52, and a pH is 7.23. Currently, the patient's on saline 75 mL an hour, dopamine at 2.5 mcg/kg/m, dobutamine at 3.5 mcg/kg/m, norepinephrine at 40 mcg/m, propofol at 60 mcg/kg/m, fentanyl at 2 mcg/kg/h, heparin weight based protocol, and Nimbex at 0.5 mcg/kg/m, with fsifk-lj-aieh monitoring. Nephrology will be consulted for worsening renal function. In addition, we'll start the patient on tube feeds. White count is 13.7, hemoglobin 13.5, hematocrit 38.9, platelet count 159,000. Sodium 141, potassium 4.3, chlorides 109, CO2 21, anion gap 11, BUN and creatinine are 38 and 3.38. Chest x-ray shows bibasilar infiltrates and/or atelectasis, right greater than left. Progress note dated 09/20/2020. 59-year-old male with a history of ufg-uw-wcedjgpr cardiac arrest. The patient name sustained significant anoxic brain injury. He remains on mechanical ventilator. He is on the volume assist control mode, rate 28 tidal volume 500, FiO2 40%, PEEP of 15. Blood gases showed pO2 of 88, pCO2 43, and a pH is 7.24. These blood gases are consistent with a mild metabolic acidosis. The patient remains on saline at 70 mL an hour, dopamine at 2.5 mcg/kg/m, dobutamine at 3.5 mcg/kg/m, norepinephrine 33 mcg/m, Nimbex has been weaned off, propofol 50 mcg/kg/m, fentanyl 1 mcg/kg/h, and tube feedings are currently on hold because of high residuals. The patient will have a PICC line placed. The patient's currently on Zosyn. Microbiology is negative. Echocardiogram shows an ejection fraction of less than 20%. He'll be started on Reglan. After he received Reglan, tube feeds will be resumed. White count is 9.1, hemoglobin 12, hematocrit 34.5, and platelet count 128,000. Sodium 139, potassium 4.2, chlorides 108, CO2 18, anion gap 13, BUN 49, with a creatinine 6.51. Chest x- ray shows left perihilar and right lower lobe infiltrates, likely consistent with pneumonia. Progress note dated 09/21/2020. 59-year-old male, with history of wqu-ru-cqiceail cardiac arrest. The patient had bystander CPR provided by his . The patient likely sustained anoxic brain injury. The patient remains on the mechanical ventilator. Ventilator settings include the volume assist control mode, rate 28, tidal volume 500, FiO2 40%, PEEP of 10. Blood gases show pO2 of 83, pCO2 41, and a pH is 7.26. The patient's on D5W with 1 ampule of sodium bicarbonate, at 75 mL an hour. In addition, the patient is on propofol 60 mcg/kg/m, dopamine at 2.5 mcg/kg/m, dobutamine at 3.5 mcg/kg/m, saline at 10 mL an hour, and norepinephrine at 41 mcg/m. The patient's also getting vital high protein at 10 mL an hour. The patient is to receive hemodialysis today. The patient's on Zosyn empirically. White count 7.7, hemoglobin 11.5, hematocrit 33.8, platelet count 127,000. Sodium 137, potassium 4, chlorides 104, CO2 17, anion gap 16, BUN 56, creatinine 8.99. Chest x-rays consistent with bilateral infiltrates and atelectasis, which is worse compared to the prior x-ray. Objective - Vital Signs Vital signs: Vital Signs Temp 98.8 F 09/21/20 08:00 Pulse 87 09/21/20 10:00 Resp 32 H 09/21/20 10:00 BP 105/68 09/21/20 01:15 Pulse Ox 93 L 09/21/20 10:00 Intake & Output 09/20/20 09/21/20 09/21/20 18:59 06:59 18:59 Intake Total 2279.982 2313.406 907.129 Output Total 545 5 15 Balance 7619.246 7667.406 892.129 Weight 136.2 kg 136.2 kg Intake: IV 901 936 312 0.9 Normal Saline 36 36 12 Pressure Bag Dextrose 5% in Water 1, 375 900 300 000 ml @ 75 mls/hr IV . [id number] [facility] with Sodium Bicarb (1 Meq/ml) 150 ml Rx#:[id number] Sodium Chloride 0.9% 1, 490 000 ml @ 70 mls/hr IV . [id number] [facility] Rx#:[id number] Intake, IV Titration 337.624 3746.406 475.129 Amount Cisatracurium 200 mg In 57.845 Sodium Chloride 0.9% 180 ml @ 2 MCG/KG/MIN 14.832 mls/hr IV .[id number] [facility] Rx #:[id number] DOBUTamine DRIP 500 mg In 250 Dextrose/Water 1 250ml. bag @ 2.5 MCG/KG/MIN 10. 206 mls/hr IV .Q24H [facility] Rx#:[id number] Norepinephrine 8 mg In 516.000 795.109 375.129 Sodium Chloride 0.9% 250 ml @ 0.05 MCG/KG/MIN 13. 166 mls/hr IV .[id number] [facility] Rx#:[id number] fentaNYL (PF). 2,500 mcg 7.179 In Sodium Chloride 0.9% 200 ml @ Per Protocol IV .Q0M [facility] Rx#:[id number] propofoL 1,000 mg In 255.052 495.297 100 Empty Bag 1 bag @ Titrate IV .Q0M [facility] Rx#: [id number] Tube Feeding 20 120 50 Other 150 90 70 Output: Gastric Drainage 500 Urine 45 5 15 Other: Voiding Method Indwelling Catheter Indwelling Catheter ABP, PAP, CO, CI - Last Documented Arterial Blood Pressure 124/48 - Exam No acute distress, sedated, with possible anoxic brain injury. The patient has an orally placed endotracheal tube. With a sedation holiday, although the patient makes no purposeful movements, he does move all 4 extremities. HEENT examination is grossly unremarkable. Pupils sluggishly reactive. Neck supple. Full range of motion. No adenopathy thyromegaly or neck vein distention. Cardiovascular examination reveals regular rhythm rate. S1-S2 normal. No S3 or S4. No discernible murmur noted. Heart sounds distant. Heart rate 86 bpm. Lungs reveal scattered rhonchi and crackles. Breath sounds equal. No wheezes. Breath sounds are unchanged. Abdomen soft but without bowel sounds. No obvious masses or tenderness. Extremities are intact. No cyanosis clubbing or edema. Skin is without rash or lesion. Neurologic examination cannot be properly assessed as the patient is sedated, but not paralyzed. - Labs CBC & Chem 7: 09/21/20 04:12 09/21/20 04:12 Labs: Abnormal Lab Results - Last 24 Hours (Table) 09/20/20 09/20/20 09/20/20 Range/Units 12:28 17:54 23:49 RBC (4.30-5.90) m/uL Hgb (13.0-17.5) gm/dL Hct (39.0-53.0) % Plt Count (150-450) k/uL Lymphocytes # (1.0-4.8) k/uL ABG pH (7.35-7.45) ABG HCO3 (21-25) mmol/L Carbon Dioxide (22-30) mmol/L BUN (9-20) mg/dL Creatinine (0.66-1.25) mg/dL Glucose (74-99) mg/dL POC Glucose (mg/dL) 112 H 113 H 120 H (75-99) mg/dL Calcium (8.4-10.2) mg/dL Total Protein (6.3-8.2) g/dL Albumin (3.5-5.0) g/dL 09/21/20 09/21/20 09/21/20 Range/Units 04:12 04:12 04:58 RBC 3.55 L (4.30-5.90) m/uL Hgb 11.5 L (13.0-17.5) gm/dL Hct 33.8 L (39.0-53.0) % Plt Count 127 L (150-450) k/uL Lymphocytes # 0.5 L (1.0-4.8) k/uL ABG pH 7.26 L (7.35-7.45) ABG HCO3 18 L (21-25) mmol/L Carbon Dioxide 17 L (22-30) mmol/L BUN 56 H (9-20) mg/dL Creatinine 8.99 H* (0.66-1.25) mg/dL Glucose 127 H (74-99) mg/dL POC Glucose (mg/dL) (75-99) mg/dL Calcium 6.9 L (8.4-10.2) mg/dL Total Protein 5.0 L (6.3-8.2) g/dL Albumin 2.7 L (3.5-5.0) g/dL Microbiology - Last 24 Hours (Table) 09/18/20 10:38 Blood Culture - Preliminary Blood No Growth after 48 hours 09/18/20 10:45 Blood Culture - Preliminary Blood No Growth after 48 hours 09/17/20 20:56 Gram Stain - Final Sputum Sputum Culture - Final Assessment and Plan Assessment: Status post tcf-cf-aemmtayj cardiopulmonary arrest, secondary to ST segment elevation myocardial infarction, status post cardiopulmonary resuscitation with return of spontaneous circulation, and stent placement in the circumflex coronary artery, and placement of Impella device. Rule out anoxic brain injury. Severe ischemic cardiomyopathy with an ejection fraction of less than 20%. Acute kidney injury, possibly related to ATN. Congestive hepatopathy and shock liver. History of hypertension. History of hypothyroidism. Possible bilateral pneumonia. Plan: Plan dated 09/17/2020. We will attempt to wean the patient off the norepinephrine. We'll also do a daily interruption of sedation. In addition, we'll try to turn down the IV fluids. Chest x-ray clearly shows congestive heart failure. In addition, the patient will have a neurology consult and EEG. Additional recommendations and suggestions are forthcoming. Prognosis is very guarded. We will continue to follow and make recommendations where appropriate. Plan dated 09/18/2020. Currently, the patient's gas exchange is reasonable. Chest x-ray shows cardiomegaly. The patient remains on dobutamine at 3 mcg/kg/m. The patient has been sedated with propofol at 70 mcg/kg/m. Hopefully, the Impella device will come out today. Once that cell, it'll be easier to wean the patient. Additional recommendations and suggestions are forthcoming. I likely will do a daily interruption of sedation anyway. Neurology has been consulted. EEG was consistent with mild to moderate encephalopathy. Prognosis is guarded. We will continue to follow and make recommendations where appropriate. Plan dated 09/19/2020. Currently, the patient's doing worse. Patient's on numerous strips including dopamine, dobutamine, norepinephrine, propofol, fentanyl, heparin, and Nimbex. The patient has developed acute kidney injury, possibly related to ATN. In addition, the patient's ejection fraction of less than 20%. His prognosis is very poor. We'll have discussions with his at this point. Neurology has seen the patient. Cardiology is also involved in the care of this patient. We will continue to follow make recommendations where appropriate. Prognosis is very guarded. Plan dated 09/20/2020. Currently, the patient's manifesting signs and symptoms of multiorgan system failure. Currently, organ involvement with the heart, lungs, kidneys, and brain. The patient's on multiple drips, including dopamine, the beginning, norepinephrine, propofol, and fentanyl. The patient will get Reglan 10 mg 4 times a day, we will resume tube needs. Patient's currently on Zosyn 3.375 g every 12. Microbiology is negative. A PICC line will be placed. I will call the Luiza, give her an update. Overall prognosis is very poor. If she wants to continue life support, I would probably aspirin early trach and PEG tube placement. Plan dated 09/21/2020. Today, I had a very pelon discussion with the patient's , and daughter. They removed the room on rounds. I gave them when I felt was a very honest assessment of their family member. I think the patient has an extremely poor prognosis given the events that took place on the day of his cardiac arrest. Very concerned about anoxic brain injury. On daily interruption of sedation, although the patient does move all 4 extremities, nothing purposeful is noted. I did tell the that I thought it was too early to give up on the patient. We'll continue to follow make recommendations were appropriate. In addition, the patient has very poor cardiac function, with an ejection fraction of less than 20%. Apparently, cardiology is also pain patient of the family. I think that's appropriate. The patient remains on D5W with sodium bicarbonate, propofol, dopamine, dobutamine, norepinephrine, and tube feeds. Time with Patient: Greater than 30
[2020-09-21] MEDS: PANTOPRAZOLE 40 MG/10 ML VIAL IVP SCH (11:21)
[2020-09-21] MEDS: CHLORHEXIDINE GLUCONATE 15 ML CUP MUCOUS MEM SCH ×2 (11:22→20:39)
[2020-09-21] MEDS: CLOPIDOGREL 75 MG TAB PO SCH (11:22)
[2020-09-21] MEDS: ATORVASTATIN 80 MG TAB PO SCH (11:22)
[2020-09-21] MEDS: HEPARIN SODIUM,PORCINE/PF 5,000 UNIT/0.5 ML SYRINGE SQ SCH ×2 (11:22→20:39)
[2020-09-21] MEDS: ASPIRIN 81 MG PO SCH (11:22)
[2020-09-21] MEDS: PIPERACILLIN-TAZOBACTAM 3.375 GM in SODIUM CHLORIDE 0.9% 100 ML IVPB SCH ×2 (11:23→20:39)
[2020-09-21 12:15] LABS: Glucose,Whole Blood 121 mg/dL (75-99)
[2020-09-21] MEDS: DOPamine DRIP 800 MG in DEXTROSE/WATER 1 250ML.BAG IV SCH ×2 (15:14→17:28)
[2020-09-21] MEDS: DOBUTamine DRIP 500 MG in DEXTROSE/WATER 1 250ML.BAG IV SCH ×2 (15:54→23:52)
[2020-09-21] MEDS ORDERED: DEXTROSE 5% IN WATER 250 ML with AMIODARONE 300 MG IV ONE (16:30)
--- NOTE | 2020-09-21 18:06 | P.PN ---
Subjective Progress Note Date: 09/21/20 (delayed charting seen at 1030) Principal diagnosis: v-fib arrest Patient is a 59-year-old male with a history of hypertension, hypothyroidism who presented to the ER after cardiac arrest in the field. He was intubated and sedated he underwent a left heart cath with in [place] placement. He underwent a stent to the LAD. It appears that his down time in the field was approximately 30 minutes on review of the EMS run sheet. He has been in cardiogenic shock requiring dopamine, dobutamine, and levophed. He has required a Nimbex drip to maintain adequate ventilation, nimbex was weaned on 09/20/20. Echocardiogram demonstrated an EF of less than 20%. He demonstrated shock liver on arrival. He has also had progressive anuric renal failure, nephrology was consulted he underwent HD on 09/21. Patient seen and examined at bedside. He is sedated on the vent, moving all 4 extremities but not following commands. present at bedside and all questions answered. General: non toxic, moderate distress, appears at stated age, obese Derm: warm, dry Head: atraumatic, normocephalic, symmetric Eyes: no lid lesion, anicteric sclera Mouth: no lip lesion, mucus membranes dry with lip cracking Cardiovascular: S1S2 reg, no murmur, positive posterior tibial pulse bilateral, Lungs: Course bilateral, no rhonchi, no rales , no accessory muscle use him on vent Abdominal: soft, nontender to palpation, no guarding, no appreciable organomegaly, Dykes catheter without signs of urine production Ext: no gross muscle atrophy, 2+ edema, no contractures Neuro: moving all 4 extremities independently, not following commands, PERRL not tracking Psych: Sedated on vent V. fib arrest ST segment elevated myocardial infarction status post PCI to the circumflex and impella placement Acute systolic congestive heart failure Ischemic cardiomyopathy with ejection fraction less than 20% Cardiogenic shock Shock liver, resolved Acute hypoxic respiratory failure Acute kidney injury secondary to hypoperfusion and likely ATN Morbid obesity with BMI 37.7 Anemia Thrombocytopenia Poor overall prognosis. Continue to wean vasopressors as able (dopamine, dobutamine, levophed). Cardio, neuro, critical care, and nephrology are following. Continue current care. HD today, CT head once stable d/w neurology. DVT prophylaxis: heparin Discussed with: nursing, , A total of 30 minutes was spent on the care of this complex patient more than 50% of the time was spent in counseling and care coordination. Objective - Vital Signs Vital signs: Vital Signs Temp 98.2 F 09/21/20 14:45 Pulse 122 H 09/21/20 17:30 Resp 31 H 09/21/20 17:00 BP 149/63 09/21/20 14:45 Pulse Ox 93 L 09/21/20 17:30 Intake & Output 09/20/20 09/21/20 09/21/20 18:59 06:59 18:59 Intake Total 6340.360 3779.406 2674.348 Output Total 545 5 29 Balance 8540.857 0162.406 2645.348 Weight 136.2 kg 136.2 kg Intake: IV 901 936 958 0.9 Normal Saline 36 36 33 Pressure Bag Dextrose 5% in Water 1, 375 900 825 000 ml @ 75 mls/hr IV . [id number] [facility] with Sodium Bicarb (1 Meq/ml) 150 ml Rx#:[id number] Piperacillin-Tazobactam 3 100 .375 gm In Sodium Chloride 0.9% 100 ml @ 25 mls/hr IVPB Q12HR [facility] Rx #:[id number] Sodium Chloride 0.9% 1, 490 000 ml @ 70 mls/hr IV . [id number] [facility] Rx#:[id number] Intake, IV Titration 817.231 8999.406 1396.348 Amount Cisatracurium 200 mg In 57.845 Sodium Chloride 0.9% 180 ml @ 2 MCG/KG/MIN 14.832 mls/hr IV .[id number] [facility] Rx #:[id number] DOBUTamine DRIP 500 mg In 250 250 Dextrose/Water 1 250ml. bag @ 2.5 MCG/KG/MIN 10. 206 mls/hr IV .Q24H [facility] Rx#:[id number] DOPamine DRIP 800 mg In 213.219 Dextrose/Water 1 250ml. bag @ 2.5 MCG/KG/MIN 5. 794 mls/hr IV .Q24H [facility] Rx#:[id number] Norepinephrine 8 mg In 516.000 795.109 633.129 Sodium Chloride 0.9% 250 ml @ 0.05 MCG/KG/MIN 13. 166 mls/hr IV .[id number] [facility] Rx#:[id number] fentaNYL (PF). 2,500 mcg 7.179 In Sodium Chloride 0.9% 200 ml @ Per Protocol IV .Q0M [facility] Rx#:[id number] propofoL 1,000 mg In 255.052 495.297 300 Empty Bag 1 bag @ Titrate IV .Q0M [facility] Rx#: [id number] Tube Feeding 20 120 190 Other 150 90 130 Output: Gastric Drainage 500 Urine 45 5 29 Hemodialysis 0 Other: Voiding Method Indwelling Catheter Indwelling Catheter Indwelling Catheter ABP, PAP, CO, CI - Last Documented Arterial Blood Pressure 92/42 - Labs CBC & Chem 7: 09/21/20 04:12 09/21/20 04:12 Labs: Abnormal Lab Results - Last 24 Hours (Table) 09/20/20 09/21/20 09/21/20 Range/Units 23:49 04:12 04:12 RBC 3.55 L (4.30-5.90) m/uL Hgb 11.5 L (13.0-17.5) gm/dL Hct 33.8 L (39.0-53.0) % Plt Count 127 L (150-450) k/uL Lymphocytes # 0.5 L (1.0-4.8) k/uL ABG pH (7.35-7.45) ABG HCO3 (21-25) mmol/L Carbon Dioxide 17 L (22-30) mmol/L BUN 56 H (9-20) mg/dL Creatinine 8.99 H* (0.66-1.25) mg/dL Glucose 127 H (74-99) mg/dL POC Glucose (mg/dL) 120 H (75-99) mg/dL Calcium 6.9 L (8.4-10.2) mg/dL Total Protein 5.0 L (6.3-8.2) g/dL Albumin 2.7 L (3.5-5.0) g/dL Procalcitonin (0.02-0.09) ng/mL 09/21/20 09/21/20 09/21/20 Range/Units 04:12 04:58 12:12 RBC (4.30-5.90) m/uL Hgb (13.0-17.5) gm/dL Hct (39.0-53.0) % Plt Count (150-450) k/uL Lymphocytes # (1.0-4.8) k/uL ABG pH 7.26 L (7.35-7.45) ABG HCO3 18 L (21-25) mmol/L Carbon Dioxide (22-30) mmol/L BUN (9-20) mg/dL Creatinine (0.66-1.25) mg/dL Glucose (74-99) mg/dL POC Glucose (mg/dL) 121 H (75-99) mg/dL Calcium (8.4-10.2) mg/dL Total Protein (6.3-8.2) g/dL Albumin (3.5-5.0) g/dL Procalcitonin 8.39 H (0.02-0.09) ng/mL Microbiology - Last 24 Hours (Table) 09/18/20 10:38 Blood Culture - Preliminary Blood No Growth after 72 hours 09/18/20 10:45 Blood Culture - Preliminary Blood No Growth after 72 hours
[2020-09-21 18:07] LABS: Glucose,Whole Blood 129 mg/dL (75-99)
[2020-09-21] MEDS: AMIODARONE 360 MG in DEXTROSE 5% IN WATER 200 ML IV SCH ×4 (18:22→23:36)
[2020-09-21 22:13] LABS: Hepatitis B Surface AB- Quant <3.5 mIU/mL; Hepatitis B Surface Antibody Non-Reactive (Non-Reactive); Hepatitis B Surface Antigen Non-Reactive (Non-Reactive)
--- NOTE | 2020-09-21 22:36 | P.PN ---
Subjective Progress Note Date: 09/21/20 09/21/2020: Patient's was also present. Patient is currently on propofol 60 g. Patient underwent complete sedation holiday for 10 minutes. Patient is moving all 4 extremities randomly, but did not follow commands. His eyes were open, and the gaze was straight ahead, but no tracking or making eye contact. He would shake head [id number] randomly. Patient at present is on Levothroid 0.2, dopamine 2.5, dobutamine 3.5. Patient also has developed arrhythmia with atrial fibrillation, PVCs for which he is on amiodarone. Patient on subcu heparin. 09/20/2020: Patient was seen for a follow-up. Patient's father, patient's and his [id number] were present. Nurse was also present. Patient currently on propofol 64 g. He is off fentanyl and Nimbex. According to nurse report, when she performed sedation holiday, patient was moving all 4 extremities randomly, trying to sit up, opened his eyes, but gaze was upwards. He did not follow any directions. He did not make any eye contact or tract with his vision. Patient is still on dobutamine 3.5 g, dopamine 2.5 mcg. 09/19/2020: Patient was seen for a follow-up. Patient's family was also present today. Nurse was also present. Patient continues to be extremely critically sick. Still not able to be able to obtain CAT scan. Patient currently on mul tiple pressors including dobutamine 3.5 mcg/kg, dopamine 2.5 mcg/kg, Levophed 40 mcg/m. Patient is also on Nimbex 0.5 mcg/kg, propofol 60 mcg/kg and fentanyl 2 mg/kg. Impella has been removed earlier today. 09/18/2020: Patient was seen for a follow-up. Please refer to Dr. Fadi Johnson note for details. Patient came to the hospital with cardiac arrest. Exact downtime unclear, although some report states 20 minutes. Patient had acute TX, for which he underwent cardiac stenting. At present patient is on sedation with propofol 70 g, which is a high dose. He has a cardiac device, which prevents him from getting computed tomography scan. Per nursing report, when sedation is decreased, he does move all 4 extremities randomly, although not purposefully. He did open his eyes. At present patient is sedated. Objective - Vital Signs Vital signs: Vital Signs Temp 98.2 F 09/21/20 14:45 Pulse 74 09/21/20 19:51 Resp 32 H 09/21/20 19:00 BP 149/63 09/21/20 14:45 Pulse Ox 96 09/21/20 19:00 Intake & Output 09/21/20 09/21/20 09/22/20 06:59 18:59 06:59 Intake Total 2686.406 2872.348 367.760 Output Total 5 29 0 Balance 2681.406 2843.348 367.760 Weight 136.2 kg 136.2 kg Intake: IV 936 1036 78 0.9 Normal Saline 36 36 3 Pressure Bag Dextrose 5% in Water 1, 900 900 75 000 ml @ 75 mls/hr IV . [id number] [facility] with Sodium Bicarb (1 Meq/ml) 150 ml Rx#:[id number] Piperacillin-Tazobactam 3 100 .375 gm In Sodium Chloride 0.9% 100 ml @ 25 mls/hr IVPB Q12HR [facility] Rx #:[id number] Intake, IV Titration 1907.026 7098.348 269.760 Amount DOBUTamine DRIP 500 mg In 250 250 Dextrose/Water 1 250ml. bag @ 2.5 MCG/KG/MIN 10. 206 mls/hr IV .Q24H [facility] Rx#:[id number] DOPamine DRIP 800 mg In 213.219 Dextrose/Water 1 250ml. bag @ 2.5 MCG/KG/MIN 5. 794 mls/hr IV .Q24H [facility] Rx#:[id number] Norepinephrine 8 mg In 795.109 633.129 179.051 Sodium Chloride 0.9% 250 ml @ 0.05 MCG/KG/MIN 13. 166 mls/hr IV .[id number] [facility] Rx#:[id number] propofoL 1,000 mg In 495.297 400 90.709 Empty Bag 1 bag @ Titrate IV .Q0M [facility] Rx#: [id number] Tube Feeding 120 210 20 Other 90 130 Output: Urine 5 29 0 Hemodialysis 0 Other: Voiding Method Indwelling Catheter Indwelling Catheter ABP, PAP, CO, CI - Last Documented Arterial Blood Pressure 130/71 - Exam On examination patient is sedated at this time. His pupils are round and slightly reactive. Oculocephalics are minimally present. Corneals are present. Patient is breathing over the ventilator. He does have a gag and cough. Tone is equal bilaterally. Reflexes are 2+ in the upper and lower limbs and plantars are clearly upgoing bilaterally. (The footboard was removed and was better able to assess for plantar reflexes). More hiccups noted as compared to yesterday. - Labs CBC & Chem 7: 09/21/20 04:12 09/21/20 04:12 Labs: Abnormal Lab Results - Last 24 Hours (Table) 09/20/20 09/21/20 09/21/20 Range/Units 23:49 04:12 04:12 RBC 3.55 L (4.30-5.90) m/uL Hgb 11.5 L (13.0-17.5) gm/dL Hct 33.8 L (39.0-53.0) % Plt Count 127 L (150-450) k/uL Lymphocytes # 0.5 L (1.0-4.8) k/uL ABG pH (7.35-7.45) ABG HCO3 (21-25) mmol/L Carbon Dioxide 17 L (22-30) mmol/L BUN 56 H (9-20) mg/dL Creatinine 8.99 H* (0.66-1.25) mg/dL Glucose 127 H (74-99) mg/dL POC Glucose (mg/dL) 120 H (75-99) mg/dL Calcium 6.9 L (8.4-10.2) mg/dL Total Protein 5.0 L (6.3-8.2) g/dL Albumin 2.7 L (3.5-5.0) g/dL Procalcitonin (0.02-0.09) ng/mL 09/21/20 09/21/20 09/21/20 Range/Units 04:12 04:58 12:12 RBC (4.30-5.90) m/uL Hgb (13.0-17.5) gm/dL Hct (39.0-53.0) % Plt Count (150-450) k/uL Lymphocytes # (1.0-4.8) k/uL ABG pH 7.26 L (7.35-7.45) ABG HCO3 18 L (21-25) mmol/L Carbon Dioxide (22-30) mmol/L BUN (9-20) mg/dL Creatinine (0.66-1.25) mg/dL Glucose (74-99) mg/dL POC Glucose (mg/dL) 121 H (75-99) mg/dL Calcium (8.4-10.2) mg/dL Total Protein (6.3-8.2) g/dL Albumin (3.5-5.0) g/dL Procalcitonin 8.39 H (0.02-0.09) ng/mL 09/21/20 Range/Units 18:05 RBC (4.30-5.90) m/uL Hgb (13.0-17.5) gm/dL Hct (39.0-53.0) % Plt Count (150-450) k/uL Lymphocytes # (1.0-4.8) k/uL ABG pH (7.35-7.45) ABG HCO3 (21-25) mmol/L Carbon Dioxide (22-30) mmol/L BUN (9-20) mg/dL Creatinine (0.66-1.25) mg/dL Glucose (74-99) mg/dL POC Glucose (mg/dL) 129 H (75-99) mg/dL Calcium (8.4-10.2) mg/dL Total Protein (6.3-8.2) g/dL Albumin (3.5-5.0) g/dL Procalcitonin (0.02-0.09) ng/mL Microbiology - Last 24 Hours (Table) 09/18/20 10:38 Blood Culture - Preliminary Blood No Growth after 72 hours 09/18/20 10:45 Blood Culture - Preliminary Blood No Growth after 72 hours Assessment and Plan Assessment: * Encephalopathy due to anoxia (cardiac arrest and unsure exact down time, at least 20 minutes or slightly longer). Also component of encephalopathy due to medication effect (propofol) and metabolic encpehalopathy (Acute kidney injury, elevated LFT's, elevated sugar). Per nurse once off sedation he is moving all extremities, but does not follow commands. * Cardiac arrest (initial rhythm is V-fib) * STEMI s/p PCI to circumflex and impella placement * Acute kidney injury, worsening with BUN 56 and creatinine 8.99. Patient received hemodialysis today. * Elevated liver function test, now normal. * Congestive heart failure * Arrhythmia. Patient has developed atrial fibrillation, with PVCs, now on amiodarone. * Cardiomegaly Plan: * Patient continues to be severely encephalopathic. On sedation holiday, patient did move all 4 extremities, but did not make eye contact or followed any commands. * EEG 09/20/2020, which was abnormal due to background slowing of moderate to severe degree. This is slightly more asymmetric involving the right hemisphere as compared to the left. This is suggestive of generalized cerebral dysfunction as can be seen with anoxic or toxic metabolic enc ephalopathy or from underlying structural abnormality. No epileptiform activity was seen. When compared to the EEG from 09/17/2020, the background appears to have got worse. * Patient continues to be extremely critical condition because of cardiac status, renal failure as well as neurological status. * Patient now has developed atrial fibrillation on amiodarone. * Await CT of the head. Per the patient's nurse the patient is still unstable at this moment due to multiple IV lines. * Continue close neuro checks. * Ammonia level 10. * 2-D echo revealed presence of Impella device. Left ventricle severely dilated. Severe global hypokinesis of the left ventricle, EF is <20%. Cardiology is on board. * Will defer the rest of the medical management to the ICU team and primary team. * Dr. Randle Will resume neurology service in the morning.
[2020-09-22] MEDS: DOPamine DRIP 800 MG in DEXTROSE/WATER 1 250ML.BAG IV SCH (00:06)
[2020-09-22 00:47] LABS: Glucose,Whole Blood 125 mg/dL (75-99)
[2020-09-22] MEDS: IPRATROPIUM-ALBUTEROL 3 ML NEB INHALATION SCH ×6 (03:09→22:57)
[2020-09-22] MEDS: ARTIFICIAL TEARS-HYPROMELLOSE DROPS 15 ML BTL BOTH EYES SCH ×2 (04:09→08:46)
[2020-09-22] MEDS: NOREPINEPHRINE 8 MG in SODIUM CHLORIDE 0.9% 250 ML IV SCH (04:10)
[2020-09-22 04:24] LABS: Basophils % (A) 0 %; Eosinophils # (A) 0.4 k/uL (0-0.7); Eosinophils % (A) 5 %; HCT 30.4 % (39.0-53.0); HGB 11.5 gm/dL (13.0-17.5); Lymphocytes # (A) 0.3 k/uL (1.0-4.8); Lymphocytes % (A) 4 %; MCH 34.9 pg (25.0-35.0); MCHC 37.9 g/dL (31.0-37.0); MCV 92.2 fL (80.0-100.0); Mean Platelet Volume 7.8; Monocytes # (A) 0.4 k/uL (0-1.0); Monocytes % (A) 5 %; Neutrophils % (A) 85 %; Platelet Count 126 k/uL (150-450); RDW 13.2 % (11.5-15.5); WBC 8.3 k/uL (3.8-10.6)
[2020-09-22 05:04] LABS: ABG Base Excess -2.2 mmol/L; ABG HCO3 23 mmol/L (21-25); ABG Oxygen Saturation 96.4 % (94-97); ABG PCO2 38 mmHg (35-45); ABG PH 7.39 (7.35-7.45); ABG PO2 84 mmHg (83-108); ABG TCO2 24 mmol/L (19-24)
[2020-09-22 05:09] LABS: Potassium 3.6 mmol/L (3.5-5.1)
[2020-09-22 05:36] LABS: Allen Test Performed? no
[2020-09-22] MEDS: AMIODARONE 360 MG in DEXTROSE 5% IN WATER 200 ML IV SCH ×2 (05:38)
[2020-09-22] MEDS: METOCLOPRAMIDE 5 MG/ML 2 ML VIAL IVP SCH ×4 (05:47→23:24)
[2020-09-22] MEDS: LEVOTHYROXINE 50 MCG TAB PO SCH (05:47)
[2020-09-22 05:55] LABS: Glucose,Whole Blood 126 mg/dL (75-99)
[2020-09-22 06:19] LABS: Calcium 6.4 mg/dL (8.4-10.2)
[2020-09-22] MEDS ORDERED: SODIUM BICARB 8.4% 50 ML SYR (1 MEQ/ML) IV STA (07:59)
[2020-09-22] MEDS ORDERED: SODIUM BICARB 8.4% 50 ML SYR (1 MEQ/ML) IV ONE (08:05)
[2020-09-22] MEDS ORDERED: FUROSEMIDE 10 MG/ML 10 ML VIAL IV STA (08:06)
[2020-09-22] MEDS: HEPARIN SODIUM,PORCINE/PF 5,000 UNIT/0.5 ML SYRINGE SQ SCH ×2 (08:11→20:00)
[2020-09-22] MEDS: PIPERACILLIN-TAZOBACTAM 3.375 GM in SODIUM CHLORIDE 0.9% 100 ML IVPB SCH ×2 (08:11→20:00)
[2020-09-22] MEDS: CHLORHEXIDINE GLUCONATE 15 ML CUP MUCOUS MEM SCH ×2 (08:12→20:00)
[2020-09-22] MEDS: PANTOPRAZOLE 40 MG/10 ML VIAL IVP SCH (08:12)
[2020-09-22] MEDS: ASPIRIN 81 MG PO SCH (08:12)
[2020-09-22] MEDS: ATORVASTATIN 80 MG TAB PO SCH (08:12)
[2020-09-22] MEDS: SODIUM CHLORIDE 0.9% 1,000 ML IV SCH ×2 (08:12→21:37)
[2020-09-22] MEDS: CLOPIDOGREL 75 MG TAB PO SCH (08:12)
--- NOTE | 2020-09-22 08:18 | P.PN ---
Subjective Patient is seen in follow-up for acute kidney injury. Off Levophed. Remains on amiodarone, dobutamine and dopamine. Oliguric. Started on hemodialysis September 21. Receiving tube feeding. Vital signs: On vasopressor support. General: The patient appeared well nourished and normally developed. HEENT: Intubated. LUNGS: Breath sounds decreased. HEART: Regular rhythm. ABDOMEN: Soft, no distention. EXTREMITITES: 1+ edema. Objective - Vital Signs Vital signs: Vital Signs Temp 99.1 F 09/22/20 00:00 Pulse 74 09/22/20 07:46 Resp 29 H 09/22/20 07:00 BP 105/68 09/22/20 00:30 Pulse Ox 97 09/22/20 07:00 Intake & Output 09/21/20 09/22/20 09/22/20 18:59 06:59 18:59 Intake Total 2872.348 2965.624 108.247 Output Total 29 45 0 Balance 2843.348 2920.624 108.247 Weight 136.2 kg 134.6 kg Intake: IV 1036 1036 78 0.9 Normal Saline 36 36 3 Pressure Bag Dextrose 5% in Water 1, 900 900 75 000 ml @ 75 mls/hr IV . [id number] [facility] with Sodium Bicarb (1 Meq/ml) 150 ml Rx#:[id number] Piperacillin-Tazobactam 3 100 100 .375 gm In Sodium Chloride 0.9% 100 ml @ 25 mls/hr IVPB Q12HR [facility] Rx #:[id number] Intake, IV Titration 9576.064 0390.624 3.247 Amount Amiodarone 360 mg In 374.443 Dextrose 5% in Water 200 ml @ 1 MG/MIN 33.333 mls/ hr IV .Q6H [facility] Rx#: [id number] DOBUTamine DRIP 500 mg In 250 113.828 Dextrose/Water 1 250ml. bag @ 2.5 MCG/KG/MIN 10. 206 mls/hr IV .Q24H [facility] Rx#:[id number] DOPamine DRIP 800 mg In 213.219 38.434 Dextrose/Water 1 250ml. bag @ 2.5 MCG/KG/MIN 5. 794 mls/hr IV .Q24H [facility] Rx#:[id number] Norepinephrine 8 mg In 633.129 535.135 3.247 Sodium Chloride 0.9% 250 ml @ 0.05 MCG/KG/MIN 13. 166 mls/hr IV .[id number] [facility] Rx#:[id number] propofoL 1,000 mg In 400 579.784 Empty Bag 1 bag @ Titrate IV .Q0M [facility] Rx#: [id number] Tube Feeding 210 228 27 Other 130 60 Output: Urine 29 45 0 Hemodialysis 0 Other: Voiding Method Indwelling Catheter Indwelling Catheter # Voids 0 ABP, PAP, CO, CI - Last Documented Arterial Blood Pressure 120/57 - Labs CBC & Chem 7: 09/22/20 04:15 09/22/20 04:15 Labs: Abnormal Lab Results - Last 24 Hours (Table) 09/21/20 09/21/20 09/21/20 Range/Units 04:12 12:12 18:05 RBC (4.30-5.90) m/uL Hgb (13.0-17.5) gm/dL Hct (39.0-53.0) % MCHC (31.0-37.0) g/dL Plt Count (150-450) k/uL Lymphocytes # (1.0-4.8) k/uL Sodium (137-145) mmol/L Carbon Dioxide (22-30) mmol/L BUN (9-20) mg/dL Creatinine (0.66-1.25) mg/dL Glucose (74-99) mg/dL POC Glucose (mg/dL) 121 H 129 H (75-99) mg/dL Calcium (8.4-10.2) mg/dL Ionized Calcium Avi (4.5-5.3) mg/dL Procalcitonin 8.39 H (0.02-0.09) ng/mL 09/22/20 09/22/20 09/22/20 Range/Units 00:46 04:15 04:15 RBC 3.30 L (4.30-5.90) m/uL Hgb 11.5 L (13.0-17.5) gm/dL Hct 30.4 L (39.0-53.0) % MCHC 37.9 H (31.0-37.0) g/dL Plt Count 126 L (150-450) k/uL Lymphocytes # 0.3 L (1.0-4.8) k/uL Sodium 133 L (137-145) mmol/L Carbon Dioxide 21 L (22-30) mmol/L BUN 49 H (9-20) mg/dL Creatinine 8.20 H* (0.66-1.25) mg/dL Glucose 135 H (74-99) mg/dL POC Glucose (mg/dL) 125 H (75-99) mg/dL Calcium 6.4 L* (8.4-10.2) mg/dL Ionized Calcium Avi (4.5-5.3) mg/dL Procalcitonin (0.02-0.09) ng/mL 09/22/20 09/22/20 Range/Units 05:54 06:40 RBC (4.30-5.90) m/uL Hgb (13.0-17.5) gm/dL Hct (39.0-53.0) % MCHC (31.0-37.0) g/dL Plt Count (150-450) k/uL Lymphocytes # (1.0-4.8) k/uL Sodium (137-145) mmol/L Carbon Dioxide (22-30) mmol/L BUN (9-20) mg/dL Creatinine (0.66-1.25) mg/dL Glucose (74-99) mg/dL POC Glucose (mg/dL) 126 H (75-99) mg/dL Calcium (8.4-10.2) mg/dL Ionized Calcium Avi 3.5 L* (4.5-5.3) mg/dL Procalcitonin (0.02-0.09) ng/mL Microbiology - Last 24 Hours (Table) 09/18/20 10:38 Blood Culture - Preliminary Blood No Growth after 72 hours 09/18/20 10:45 Blood Culture - Preliminary Blood No Growth after 72 hours Assessment and Plan Plan: Assessment: 1. Acute kidney injury secondary to ATN secondary to cardiac arrest and cardiogenic shock. Oliguric. Started on hemodialysis September 21. 2. Status post cardiac arrest. 3. Coronary artery disease status post catheterization with stent placement to the circumflex on 09/17/2020. 4. Cardiogenic shock maintained on dobutamine and dopamine. Ejection fraction 20-25%. 5. Metabolic acidosis secondary to acute kidney injury. Improved with bicarb drip. 6. Acute hypoxic respiratory failure. 7. Hypocalcemia secondary to acute kidney injury. Plan: Stop bicarb drip. Start normal saline at 75 mL an hour. Maintain tube feeds. 2 A of sodium bicarbonate IV push today. Calcium being replaced. Lasix 80 mg IV once today. Wean vasopressors. Hemodialysis today without any ultrafiltration.
[2020-09-22] MEDS ORDERED: CALCIUM GLUCONATE 2 GM in SODIUM CHLORIDE 0.9% 100 ML IVPB ONE (08:30)
--- NOTE | 2020-09-22 10:05 | P.PN ---
Subjective Progress Note Date: 09/22/20 Principal diagnosis: Cardiac arrest. Pulmonary consult dated 09/17/2020. 59-year-old male who apparently had an usm-br-yyprawjp cardiac arrest. EMS was called. His provided is danger chest compressions. When EMS arrived, the patient was in ventricular fibrillation arrest. The patient apparently started having chest compressions, received 3 defibrillations, and 2 rounds of epinephrine. The patient was apparently then intubated in the emergency room by the emergency room physician. The patient was taken to the [facility]. The patient had a stent placed in his circumflex coronary artery. Currently, he's on the ventilator. He is on the volume assist control mode, tidal volume 500, rate 24, FiO2 40%, PEEP of 8. Blood gases on the same settings, except 50%, patricia wed PaO2 of 127 pCO2 of 40, and a pH 7.36. The patient remains on a Lasix drip at 10 mg an hour saline at 150 mL an hour, propofol at 40 mcg/kg/m, norepinephrine at 2 mcg/m. We are going to do a daily interruption of sedation to evaluate the patient's neurologic status. In addition, the patient will need an EEG, and neurology consultation. We'll attempt to wean the norepinephrine. White count 11.4, hemoglobin, hematocrit, and platelet count all normal. PT 15.4, INR 1.5, PTT 52, and d-dimer greater than 34.10. Sodium 141, potassium 3.8, chlorides 107, CO2 23, anion gap 11, BUN 25, and creatinine 1.32. AST 347, ALT is 296, and LDH 2314. Troponins were 0.238 and 3.510. Chest x-rays co nsistent with cardiomegaly, and CHF. Progress note dated 09/18/2020. 59-year-old male with a history of fho-yz-rggpiloc cardiac arrest. The patient may have had a prolonged period of resuscitation. The patient was receiving bystander CPR by his . EMS arrived, and continue with chest compressions, defibrillation, and 2 rounds of epinephrine. The patient was intubated in the emergency department by the emergency room physician. The patient was taken to the catheterization laboratory. His stent placement in circumflex coronary artery, and also, an Impella device was inserted. Currently, white count 12.5, hemoglobin 14.3, hematocrit 42.8, and platelet count 168,000. Blood gases show pO2 70, pCO2 35, and a pH is 7.42. His ventilator settings include the volume assist control mode, rate 24, tidal volume 500, FiO2 50%, PEEP of 10. The patient remains on dobutamine at 3 g kilogram per minute, propofol at 70 mcg/kg/m, saline at 125 mL an hour, and heparin via weightbase protocol. Tube feedings has not yet been started. Hopefully, the Impella can be removed today. Sodium 143, potassium 3.1, chlorides 111, CO2 22, anion gap 10, BUN 27, creatinine 1.78. Other than cardiomegaly, the chest x-ray looks pretty good. Progress note dated 09/19/2020. 59-year-old male with a history of xks-fk-jnziuehy cardiac arrest. The patient appears to have a significantly prolonged period of resuscitation, and may not have received proper oxygenation before arriving in the emergency room. The patient initially had bystander CPR by his . EMS arrived, and provided chest compressions. The patient was defibrillated 3 and received 2 rounds of epinephrine. The patient was not intubated until they arrived in the emergency department. The patient was taken to the catheterization laboratory. The patient is stent placed in his circumflex coronary artery. In addition, an Imp lizbeth device was inserted, and that was removed yesterday. Currently, the patient's on the volume assist control mode rate of 24, to be increased up to 28, tidal volume 500, FiO2 50%, PEEP of 15. The FiO2 be dropped down to 40%. Arterial blood gases show pO2 of 109, pCO2 of 52, and a pH is 7.23. Currently, the patient's on saline 75 mL an hour, dopamine at 2.5 mcg/kg/m, dobutamine at 3.5 mcg/kg/m, norepinephrine at 40 mcg/m, propofol at 60 mcg/kg/m, fentanyl at 2 mcg/kg/h, heparin weight based protocol, and Nimbex at 0.5 mcg/kg/m, with jptum-[id number] monitoring. Nephrology will be consulted for worsening renal function. In addition, we'll start the patient on tube feeds. White count is 13.7, hemoglobin 13.5, hematocrit 38.9, platelet count 159,000. Sodium 141, potassium 4.3, chlorides 109, CO2 21, anion gap 11, BUN and creatinine are 38 and 3.38. Chest x-ray shows bibasilar infiltrates and/or atelectasis, right greater than left. Progress note dated 09/20/2020. 59-year-old male with a history of zrr-qw-pziftvnz cardiac arrest. The patient name sustained significant anoxic brain injury. He remains on mechanical ventilator. He is on the volume assist control mode, rate 28 tidal volume 500, FiO2 40%, PEEP of 15. Blood gases showed pO2 of 88, pCO2 43, and a pH is 7.24. These blood gases are consistent with a mild metabolic acidosis. The patient remains on saline at 70 mL an hour, dopamine at 2.5 mcg/kg/m, dobutamine at 3.5 mcg/kg/m, norepinephrine 33 mcg/m, Nimbex has been weaned off, propofol 50 mcg/kg/m, fentanyl 1 mcg/kg/h, and tube feedings are currently on hold because of high residuals. The patient will have a PICC line placed. The patient's currently on Zosyn. Microbiology is negative. Echocardiogram shows an ejection fraction of less than 20%. He'll be started on Reglan. After he received Reglan, tube feeds will be resumed. White count is 9.1, hemoglobin 12, hematocrit 34.5, and platelet count 128,000. Sodium 139, potassium 4.2, chlorides 108, CO2 18, anion gap 13, BUN 49, with a creatinine 6.51. Chest x- ray shows left perihilar and right lower lobe infiltrates, likely consistent with pneumonia. Progress note dated 09/21/2020. 59-year-old male, with history of ovm-dw-[id number] cardiac arrest. The patient had bystander CPR provided by his . The patient likely sustained anoxic brain injury. The patient remains on the mechanical ventilator. Ventilator settings include the volume assist control mode, rate 28, tidal volume 500, FiO2 40%, PEEP of 10. Blood gases show pO2 of 83, pCO2 41, and a pH is 7.26. The patient's on D5W with 1 ampule of sodium bicarbonate, at 75 mL an hour. In addition, the patient is on propofol 60 mcg/kg/m, dopamine at 2.5 mcg/kg/m, dobutamine at 3.5 mcg/kg/m, saline at 10 mL an hour, and norepinephrine at 41 mcg/m. The patient's also getting vital high protein at 10 mL an hour. The patient is to receive hemodialysis today. The patient's on Zosyn empirically. White count 7.7, hemoglobin 11.5, hematocrit 33.8, platelet count 127,000. Sodium 137, potassium 4, chlorides 104, CO2 17, anion gap 16, BUN 56, creatinine 8.99. Chest x-rays consistent with bilateral infiltrates and atelectasis, which is worse compared to the prior x-ray. Progress note dated 09/22/2020. 59-year-old male with a history of pxs-qf-vfbhnliq cardiac arrest. Apparently, his provided CPR until EMS arrived. We feel the patient may have sustained significant anoxic brain injury, because the patient apparently was not intubated until he arrived in the emergency department. The patient did receive 3 defibrillations at the scene, and also to rounds of epinephrine. Apparently chest compressions were being provided by the Faustino device. Currently, the patient remains on mechanical ventilator. I think daily discussions with the , giving her updates. The patient remains on the volume assist control mode, rate 28, tidal volume 500, FiO2 60%, PEEP of 10. Blood gases show a PaO2 of 84, PaCO2 of 38, and a pH is 7.38. The patient's currently on D5W with 1 amp of sodium bicarbonate at 75 mL an hour, will follow at 30 g, dopamine at 2.5 mcg/kg/m, norepinephrine which is been weaned off, saline at 10 mL an hour, dobutamine at 3.5 mcg/kg/m, and amiodarone at 1 mg/m in addition, the patient's receiving vital high protein at goal, which is 27 mL an hour. The patient had a daily interruption of sedation today, and his mental status was not improved whatsoever. The patient was re-sedated. The was updated. White count 8.3, hemoglobin 11.5, hematocrit 30.4, platelet count 126,000. Sodium 133, potassium 3.6, chlorides 98, CO2 21, anion gap 14, BUN 49, and creatinine 8.20. Ionized calcium was low at 3.5. The patient did receive some calcium gluconate. Chest x-ray shows consolidation in the left lower lobe. Objective - Vital Signs Vital signs: Vital Signs Temp 98.4 F 09/22/20 08:00 Pulse 75 09/22/20 08:45 Resp 15 09/22/20 08:45 BP 105/68 09/22/20 00:30 Pulse Ox 96 09/22/20 08:45 Intake & Output 09/21/20 09/22/20 09/22/20 18:59 06:59 18:59 Intake Total 2872.348 2965.624 243.247 Output Total 29 45 0 Balance 2843.348 2920.624 243.247 Weight 136.2 kg 134.6 kg Intake: IV 1036 1036 156 0.9 Normal Saline 36 36 6 Pressure Bag Dextrose 5% in Water 1, 900 900 150 000 ml @ 75 mls/hr IV . [id number] JORDANA with Sodium Bicarb (1 Meq/ml) 150 ml Rx#:[id number] Piperacillin-Tazobactam 3 100 100 .375 gm In Sodium Chloride 0.9% 100 ml @ 25 mls/hr IVPB Q12HR JORDANA Rx #:[id number] Intake, IV Titration 0503.572 2747.624 3.247 Amount Amiodarone 360 mg In 374.443 Dextrose 5% in Water 200 ml @ 1 MG/MIN 33.333 mls/ hr IV .Q6H JORDANA Rx#: [id number] DOBUTamine DRIP 500 mg In 250 113.828 Dextrose/Water 1 250ml. bag @ 2.5 MCG/KG/MIN 10. 206 mls/hr IV .Q24H JORDANA Rx#:[id number] DOPamine DRIP 800 mg In 213.219 38.434 Dextrose/Water 1 250ml. bag @ 2.5 MCG/KG/MIN 5. 794 mls/hr IV .Q24H JORDANA Rx#:[id number] Norepinephrine 8 mg In 633.129 535.135 3.247 Sodium Chloride 0.9% 250 ml @ 0.05 MCG/KG/MIN 13. 166 mls/hr IV .[id number] JORDANA Rx#:[id number] propofoL 1,000 mg In 400 579.784 Empty Bag 1 bag @ Titrate IV .Q0M JORDANA Rx#: [id number] Tube Feeding 210 228 54 Other 130 60 30 Output: Urine 29 45 0 Hemodialysis 0 Other: Voiding Method Indwelling Catheter Indwelling Catheter # Voids 0 ABP, PAP, CO, CI - Last Documented Arterial Blood Pressure 109/58 - Exam No acute distress, sedated, with possible anoxic brain injury. The patient has an orally placed endotracheal tube. With a sedation holiday, although the patient makes no purposeful movements, he does move all 4 extremities. HEENT examination is grossly unremarkable. Pupils sluggishly reactive. Neck supple. Full range of motion. No adenopathy thyromegaly or neck vein distention. Cardiovascular examination reveals regular rhythm rate. S1-S2 normal. No S3 or S4. No discernible murmur noted. Heart sounds distant. Heart rate 75 bpm. Lungs reveal scattered rhonchi, and some scattered crackles. Breath sounds are equal bilaterally but diminished throughout. There are no wheezes. Abdomen soft but without bowel sounds. No obvious masses or tenderness. Extremities are intact. No cyanosis clubbing or edema. Skin is without rash or lesion. Neurologic examination cannot be properly assessed as the patient is sedated, but not paralyzed. - Labs CBC & Chem 7: 09/22/20 04:15 09/22/20 04:15 Labs: Abnormal Lab Results - Last 24 Hours (Table) 09/21/20 09/21/20 09/21/20 Range/Units 04:12 12:12 18:05 RBC (4.30-5.90) m/uL Hgb (13.0-17.5) gm/dL Hct (39.0-53.0) % MCHC (31.0-37.0) g/dL Plt Count (150-450) k/uL Lymphocytes # (1.0-4.8) k/uL Sodium (137-145) mmol/L Carbon Dioxide (22-30) mmol/L BUN (9-20) mg/dL Creatinine (0.66-1.25) mg/dL Glucose (74-99) mg/dL POC Glucose (mg/dL) 121 H 129 H (75-99) mg/dL Calcium (8.4-10.2) mg/dL Ionized Calcium Avi (4.5-5.3) mg/dL Procalcitonin 8.39 H (0.02-0.09) ng/mL 09/22/20 09/22/20 09/22/20 Range/Units 00:46 04:15 04:15 RBC 3.30 L (4.30-5.90) m/uL Hgb 11.5 L (13.0-17.5) gm/dL Hct 30.4 L (39.0-53.0) % MCHC 37.9 H (31.0-37.0) g/dL Plt Count 126 L (150-450) k/uL Lymphocytes # 0.3 L (1.0-4.8) k/uL Sodium 133 L (137-145) mmol/L Carbon Dioxide 21 L (22-30) mmol/L BUN 49 H (9-20) mg/dL Creatinine 8.20 H* (0.66-1.25) mg/dL Glucose 135 H (74-99) mg/dL POC Glucose (mg/dL) 125 H (75-99) mg/dL Calcium 6.4 L* (8.4-10.2) mg/dL Ionized Calcium Avi (4.5-5.3) mg/dL Procalcitonin (0.02-0.09) ng/mL 09/22/20 09/22/20 Range/Units 05:54 06:40 RBC (4.30-5.90) m/uL Hgb (13.0-17.5) gm/dL Hct (39.0-53.0) % MCHC (31.0-37.0) g/dL Plt Count (150-450) k/uL Lymphocytes # (1.0-4.8) k/uL Sodium (137-145) mmol/L Carbon Dioxide (22-30) mmol/L BUN (9-20) mg/dL Creatinine (0.66-1.25) mg/dL Glucose (74-99) mg/dL POC Glucose (mg/dL) 126 H (75-99) mg/dL Calcium (8.4-10.2) mg/dL Ionized Calcium Avi 3.5 L* (4.5-5.3) mg/dL Procalcitonin (0.02-0.09) ng/mL Microbiology - Last 24 Hours (Table) 09/18/20 10:38 Blood Culture - Preliminary Blood No Growth after 72 hours 09/18/20 10:45 Blood Culture - Preliminary Blood No Growth after 72 hours Assessment and Plan Assessment: Status post zok-ec-asbeiuaa cardiopulmonary arrest, secondary to ST segment elevation myocardial infarction, status post cardiopulmonary resuscitation with return of spontaneous circulation, and stent placement in the circumflex coronary artery, and placement of an Impella device. Rule out anoxic brain injury. Severe ischemic cardiomyopathy with an ejection fraction of less than 20%. Acute kidney injury, possibly related to ATN. Congestive hepatopathy and shock liver. History of hypertension. History of hypothyroidism. Possible bilateral pneumonia. Plan: Plan dated 09/17/2020. We will attempt to wean the patient off the norepinephrine. We'll also do a daily interruption of sedation. In addition, we'll try to turn down the IV fluids. Chest x-ray clearly shows congestive heart failure. In addition, the patient will have a neurology consult and EEG. Additional recommendations and suggestions are forthcoming. Prognosis is very guarded. We will continue to follow and make recommendations where appropriate. Plan dated 09/18/2020. Currently, the patient's gas exchange is reasonable. Chest x-ray shows cardiomegaly. The patient remains on dobutamine at 3 mcg/kg/m. The patient has been sedated with propofol at 70 mcg/kg/m. Hopefully, the Impella device will come out today. Once that cell, it'll be easier to wean the patient. Additional recommendations and suggestions are forthcoming. I likely will do a daily interruption of sedation anyway. Neurology has been consulted. EEG was consistent with mild to moderate encephalopathy. Prognosis is guarded. We will continue to follow and make recommendations where appropriate. Plan dated 09/19/2020. Currently, the patient's doing worse. Patient's on numerous strips including dopamine, dobutamine, norepinephrine, propofol, fentanyl, heparin, and Nimbex. The patient has developed acute kidney injury, possibly related to ATN. In addition, the patient's ejection fraction of less than 20%. His prognosis is very poor. We'll have discussions with his at this point. Neurology has seen the patient. Cardiology is also involved in the care of this patient. We will continue to follow make recommendations where appropriate. Prognosis is very guarded. Plan dated 09/20/2020. Currently, the patient's manifesting signs and symptoms of multiorgan system failure. Currently, organ involvement with the heart, lungs, kidneys, and brain. The patient's on multiple drips, including dopamine, the beginning, norepinephrine, propofol, and fentanyl. The patient will get Reglan 10 mg 4 times a day, we will resume tube needs. Patient's currently on Zosyn 3.375 g every 12. Microbiology is negative. A PICC line will be placed. I will call the Luiza, give her an update. Overall prognosis is very poor. If she wants to continue life support, I would probably aspirin early trach and PEG tube placement. Plan dated 09/21/2020. Today, I had a very pelon discussion with the patient's , and daughter. They removed the room on rounds. I gave them when I felt was a very honest assessment of their family member. I think the patient has an extremely poor prognosis given the events that took place on the day of his cardiac arrest. Very concerned about anoxic brain injury. On daily interruption of sedation, although the patient does move all 4 extremities, nothing purposeful is noted. I did tell the that I thought it was too early to give up on the patient. We'll continue to follow make recommendations were appropriate. In addition, the patient has very poor cardiac function, with an ejection fraction of less than 20%. Apparently, cardiology is also pain patient of the family. I think that's appropriate. The patient remains on D5W with sodium bicarbonate, propofol, dopamine, dobutamine, norepinephrine, and tube feeds. Plan dated 09/22/2020. The patient remains on the chemical ventilator. We been updating the daily. Blood gases are reasonable. The patient remains on a number drips including a sodium bicarbonate drip, propofol, dopamine, amiodarone, and dobuta mine. Norepinephrine is been weaned off. The patient is on vital high protein at goal. No additional recommendations are made at this time. We will continue to follow and make suggestions where appropriate. The patient did have a daily interruption of sedation, with no improvement in his overall neurologic status. The was in the room, when we did this. Time with Patient: Greater than 30
--- NOTE | 2020-09-22 10:32 | XR ---
EXAMINATION TYPE: XR chest 1V portable DATE OF EXAM: 09/22/2020 COMPARISON: NONE HISTORY: Respiratory failure TECHNIQUE: Single frontal view of the chest is obtained. FINDINGS: Multiple external wires project over the chest limits evaluation. Left upper extremity PICC, endotracheal tube and nasogastric tube stable in position. Nasogastric tub e side hole seen at the distal esophagus. Left lower lobe there is an opacification. Slight decrease in interstitial opacities. Prominent cardiomediastinal silhouette. No acute osseous abnormality. IMPRESSION: 1. Interval increased opacity in the left lower lobe could be on the basis of atelectasis secondary t o the left bronchus mucous plug. 2. Nasogastric tube side hole seen the distal esophagus recommend advancing at least 10 cm. 3. Stable bilateral interstitial opacities.
[2020-09-22] MEDS ORDERED: fentaNYL (PF) 50 MCG/ML 2 ML AMP IVP STA (11:19)
[2020-09-22] MEDS ORDERED: fentaNYL (PF) 50 MCG/ML 2 ML AMP IVP ONE (11:21)
[2020-09-22] MEDS ORDERED: propofoL 100 ML IV ONE (11:56)
[2020-09-22] MEDS: AMIODARONE 450 MG in DEXTROSE 5% IN WATER 250 ML IV SCH ×2 (12:05)
--- NOTE | 2020-09-22 12:58 | P.PN ---
Progress Note - Text Patient remains intubated but he did respond appropriately to verbal question regarding DO NOT RESUSCITATE status He does NOT want to be DO NOT RESUSCITATE He is off levo fed very still on dobutamine and dopamine His blood pressure is elevated Blood pressure was in this 160s during stimulation but now does 126/49 mmHg Respirations increased rates Pulse rate in the 70s Afebrile White count 8.3, hemoglobin 11.5, platelet count 126,000 Sodium 133, potassium 3.6, BUN 49 and creatinine 2.2 Magnesium 2.0 Impression Acute myocardial infarctions status post stenting Cardiac shock initially on impeller now on dobutamine and dopamine A. fib, paroxysmal IVCD Severe cardio myopathy, ischemic Plan Continue IV dobutamine at the same dose Reduce the dose of dopamine and amiodarone by half Continue ICU care Hopefully his neurologic recovery continues Dialysis will resume today Patient is full code Will follow
[2020-09-22] MEDS: fentaNYL (PF) 50 MCG/ML 2 ML AMP IVP PRN ×2 (15:11→23:02)
--- NOTE | 2020-09-22 15:55 | P.PN ---
Subjective Progress Note Date: 09/22/20 (seen at 11am) Principal diagnosis: v-fib arrest Patient is a 59-year-old male with a history of hypertension, hypothyroidism, and obesity who presented to the ER after cardiac arrest in the field. He had multiple rounds of CPR, Epi, and Defib prior to obtaining ROSC. It appears that his down time in the field was approximately 30 minutes on review of the EMS run sheet. He was intubated and sedated he underwent a left heart cath with stent to the LAD and impella placement. Echocardiogram demonstrated an EF of less than 20% with global hypokenesis. He was determined to be in cardiogenic shock requiring dopamine, dobutamine, and levophed. He has required a Nimbex drip to maintain adequate ventilation until 09/20/20. He demonstrated shock liver on arrival. He has also had progressive anuric renal failure, nephrology was consulted HD was initiated on 09/21/20. He had one abnormal EEG with worsening of EEG on 09/20/20. We have been unable to wean sedation due to agitation and there are concerns for severe anoxic encephalopathy. His CXR was worsening and procalc itonin was elevated and he was started on zosyn with concerns for possible underlying PNA. He had not been awake or following commands with sedation holidays. Patient seen and examined at bedside during sedation holiday. Patient appeared to be trying to look at , but was not following commands or tracking lights. He then intermittent wiggled his toes. When his asked him if she should let him go, he clearly shook his head "no". This behavior was repeated 3 different times. General: non toxic, no distress, appears at stated age, obese Derm: warm, dry Head: atraumatic, normocephalic, symmetric Eyes: no lid lesion, anicteric sclera Mouth: no lip lesion, mucus membranes dry with lip cracking Cardiovascular: S1S2 reg, no murmur, positive posterior tibial pulse bilateral, Lungs: Course bilateral, no rhonchi, no rales , no accessory muscle use him on vent Abdominal: soft, nontender to palpation, no guarding, no appreciable organomegaly, Dykes catheter without signs of urine production Ext: no gross muscle atrophy, 2+ edema, no contractures Neuro: wiggling toes possibly to commands. squeezing hands, PERRL not tracking Psych: Sedated on vent V. fib arrest due to ST segment elevated myocardial infarction status post PCI to the circumflex and impella placement Acute systolic congestive heart failure Ischemic cardiomyopathy with ejection fraction less than 20% Cardiogenic shock - dopamine decreased in half, dobutamine, levophed off by 09/22/20 - maintaine BP - cardio recs - ASA, Plavix, lipitor Anoxic encephalopathy - Patient clearly indicating with head shake that he doesn't want to give up - neuro recs - attempt to remain off sedation if able, fentayl as needed for pain. Acute kidney injury secondary to hypoperfusion and likely ATN - nephrology recs - HD today - Avoid nephrotoxic agents - maintain map >65 Acute hypoxic respiratory failure, Pneumonia possible gram negative - zosyn - pulm recs - pulm hygeine Anemia - Thrombocytopenia - follow CBC - no indication for transfusion at this point in time. Morbid obesity with BMI 37.7 Shock liver, resolved Poor overall prognosis. DVT prophylaxis: heparin Discussed with: nursing, , A total of 35 minutes was spent on the care of this complex patient more than 50% of the time was spent in counseling and care coordination. Objective - Vital Signs Vital signs: Vital Signs Temp 99.1 F 09/22/20 00:00 Pulse 74 09/22/20 07:46 Resp 29 H 09/22/20 07:00 BP 105/68 09/22/20 00:30 Pulse Ox 97 09/22/20 07:00 Intake & Output 09/21/20 09/22/20 09/22/20 18:59 06:59 18:59 Intake Total 2872.348 2965.624 108.247 Output Total 29 45 0 Balance 2843.348 2920.624 108.247 Weight 136.2 kg 134.6 kg Intake: IV 1036 1036 78 0.9 Normal Saline 36 36 3 Pressure Bag Dextrose 5% in Water 1, 900 900 75 000 ml @ 75 mls/hr IV . [id number] [facility] with Sodium Bicarb (1 Meq/ml) 150 ml Rx#:[id number] Piperacillin-Tazobactam 3 100 100 .375 gm In Sodium Chloride 0.9% 100 ml @ 25 mls/hr IVPB Q12HR [facility] Rx #:[id number] Intake, IV Titration 0151.238 9340.624 3.247 Amount Amiodarone 360 mg In 374.443 Dextrose 5% in Water 200 ml @ 1 MG/MIN 33.333 mls/ hr IV .Q6H [facility] Rx#: [id number] DOBUTamine DRIP 500 mg In 250 113.828 Dextrose/Water 1 250ml. bag @ 2.5 MCG/KG/MIN 10. 206 mls/hr IV .Q24H [facility] Rx#:[id number] DOPamine DRIP 800 mg In 213.219 38.434 Dextrose/Water 1 250ml. bag @ 2.5 MCG/KG/MIN 5. 794 mls/hr IV .Q24H [facility] Rx#:[id number] Norepinephrine 8 mg In 633.129 535.135 3.247 Sodium Chloride 0.9% 250 ml @ 0.05 MCG/KG/MIN 13. 166 mls/hr IV .[id number] [facility] Rx#:[id number] propofoL 1,000 mg In 400 579.784 Empty Bag 1 bag @ Titrate IV .Q0M [facility] Rx#: [id number] Tube Feeding 210 228 27 Other 130 60 Output: Urine 29 45 0 Hemodialysis 0 Other: Voiding Method Indwelling Catheter Indwelling Catheter # Voids 0 ABP, PAP, CO, CI - Last Documented Arterial Blood Pressure 120/57 - Labs CBC & Chem 7: 09/22/20 04:15 09/22/20 04:15 Labs: Abnormal Lab Results - Last 24 Hours (Table) 09/21/20 09/21/20 09/21/20 Range/Units 04:12 12:12 18:05 RBC (4.30-5.90) m/uL Hgb (13.0-17.5) gm/dL Hct (39.0-53.0) % MCHC (31.0-37.0) g/dL Plt Count (150-450) k/uL Lymphocytes # (1.0-4.8) k/uL Sodium (137-145) mmol/L Carbon Dioxide (22-30) mmol/L BUN (9-20) mg/dL Creatinine (0.66-1.25) mg/dL Glucose (74-99) mg/dL POC Glucose (mg/dL) 121 H 129 H (75-99) mg/dL Calcium (8.4-10.2) mg/dL Ionized Calcium Avi (4.5-5.3) mg/dL Procalcitonin 8.39 H (0.02-0.09) ng/mL 09/22/20 09/22/20 09/22/20 Range/Units 00:46 04:15 04:15 RBC 3.30 L (4.30-5.90) m/uL Hgb 11.5 L (13.0-17.5) gm/dL Hct 30.4 L (39.0-53.0) % MCHC 37.9 H (31.0-37.0) g/dL Plt Count 126 L (150-450) k/uL Lymphocytes # 0.3 L (1.0-4.8) k/uL Sodium 133 L (137-145) mmol/L Carbon Dioxide 21 L (22-30) mmol/L BUN 49 H (9-20) mg/dL Creatinine 8.20 H* (0.66-1.25) mg/dL Glucose 135 H (74-99) mg/dL POC Glucose (mg/dL) 125 H (75-99) mg/dL Calcium 6.4 L* (8.4-10.2) mg/dL Ionized Calcium Avi (4.5-5.3) mg/dL Procalcitonin (0.02-0.09) ng/mL 09/22/20 09/22/20 Range/Units 05:54 06:40 RBC (4.30-5.90) m/uL Hgb (13.0-17.5) gm/dL Hct (39.0-53.0) % MCHC (31.0-37.0) g/dL Plt Count (150-450) k/uL Lymphocytes # (1.0-4.8) k/uL Sodium (137-145) mmol/L Carbon Dioxide (22-30) mmol/L BUN (9-20) mg/dL Creatinine (0.66-1.25) mg/dL Glucose (74-99) mg/dL POC Glucose (mg/dL) 126 H (75-99) mg/dL Calcium (8.4-10.2) mg/dL Ionized Calcium Avi 3.5 L* (4.5-5.3) mg/dL Procalcitonin (0.02-0.09) ng/mL Microbiology - Last 24 Hours (Table) 09/18/20 10:38 Blood Culture - Preliminary Blood No Growth after 72 hours 09/18/20 10:45 Blood Culture - Preliminary Blood No Growth after 72 hours
[2020-09-22] MEDS: DOBUTamine DRIP 500 MG in DEXTROSE/WATER 1 250ML.BAG IV SCH (16:14)
[2020-09-22] MEDS ORDERED: CISATRACURIUM 2 MG/ML 5 ML VIAL IV ONE (17:15)
[2020-09-22 18:15] LABS: Glucose,Whole Blood 91 mg/dL (75-99)
--- NOTE | 2020-09-22 18:26 | CT ---
EXAMINATION TYPE: CT brain wo con DATE OF EXAM: 09/22/2020 COMPARISON: None HISTORY: Recent cardio/pulm arrest, seizure-like activities. CT DLP: 1260.4 mGycm Automated exposure control for dose reduction was used. Ventricles have normal size. There is no mass effect nor midline shift. There is no sign of intracran ial hemorrhage. There is some loss of the sulci pattern for the patient's age. This is suggestive of some mild cerebral edema. This is seen at the occipital lobes. Calvarium is intact. There is mucosal thickening in the sphenoid and ethmoid and frontal sinuses. IMPRESSION: Possible cerebral edema involving the occipital lobes. No intracranial hemorrhage. Sinusitis.
[2020-09-22] MEDS: LORazepam 2 MG/ML INJ IV PRN (19:07)
[2020-09-22 23:31] LABS: Glucose,Whole Blood 94 mg/dL (75-99)
[2020-09-23] MEDS: AMIODARONE 450 MG in DEXTROSE 5% IN WATER 250 ML IV SCH ×4 (01:46→17:35)
[2020-09-23] MEDS: LORazepam 2 MG/ML INJ IV PRN (02:38)
[2020-09-23] MEDS: IPRATROPIUM-ALBUTEROL 3 ML NEB INHALATION SCH ×5 (03:06→19:46)
[2020-09-23] MEDS: fentaNYL (PF) 50 MCG/ML 2 ML AMP IVP PRN ×2 (04:34→07:55)
[2020-09-23 04:47] LABS: Potassium 4.2 mmol/L (3.5-5.1)
[2020-09-23 04:54] LABS: Basophils % (A) 0 %; Eosinophils # (A) 0.2 k/uL (0-0.7); Eosinophils % (A) 3 %; HGB 11.9 gm/dL (13.0-17.5); Lymphocytes # (A) 0.2 k/uL (1.0-4.8); Lymphocytes % (A) 3 %; MCH 33.7 pg (25.0-35.0); MCHC 36.2 g/dL (31.0-37.0); MCV 93.2 fL (80.0-100.0); Monocytes # (A) 0.4 k/uL (0-1.0); Monocytes % (A) 6 %; Neutrophils # (A) 6.5 k/uL (1.3-7.7); Neutrophils % (A) 87 %; Platelet Count 144 k/uL (150-450); RBC 3.54 m/uL (4.30-5.90); WBC 7.4 k/uL (3.8-10.6)
[2020-09-23 05:18] LABS: ABG Base Excess -5.1 mmol/L; ABG HCO3 20 mmol/L (21-25); ABG Oxygen Saturation 89.1 % (94-97); ABG PCO2 36 mmHg (35-45); ABG PH 7.36 (7.35-7.45); ABG PO2 62 mmHg (83-108); ABG TCO2 21 mmol/L (19-24)
[2020-09-23 05:30] LABS: Calcium 6.5 mg/dL (8.4-10.2)
[2020-09-23 05:39] LABS: Allen Test Performed? no
[2020-09-23] MEDS: LEVOTHYROXINE 50 MCG TAB PO SCH (06:01)
[2020-09-23] MEDS: METOCLOPRAMIDE 5 MG/ML 2 ML VIAL IVP SCH ×3 (06:01→17:36)
[2020-09-23 06:12] LABS: Glucose,Whole Blood 92 mg/dL (75-99)
--- NOTE | 2020-09-23 08:14 | XR ---
EXAMINATION TYPE: XR chest 1V portable DATE OF EXAM: 09/23/2020 COMPARISON: 09/22/2020 and prior HISTORY: Respiratory failure TECHNIQUE: Single frontal view of the chest is obtained. FINDINGS: The tip of the ET tube is 3.2 cm above the anand. The nasogastric sidehole is noted in th e distal esophagus. Left upper extremity central venous catheter stable. Low lung volumes and bilateral interstitial opacities. Left lower lobe opacity has decreased in the interval. Trace left pleural effusion. No right pleural effusion or pneumothorax. Cardiomediastinal silhouette similar to prior study. No acute osseous abnormality. IMPRESSION: 1. Slightly advanced endotracheal tip now 3.2 cm above anand previously 4.6. 2. Low lung volumes with stable bilateral interstitial opacities. 3. Interval decrease and left lower lobe opacity. 4. Trace left pleural effusion. 5. Nasogastric tube sidehole in distal esophagus, recommend advancing 10 cm.
--- NOTE | 2020-09-23 08:29 | P.PN ---
Subjective Patient is seen in follow-up for acute kidney injury. Off Levophed. Remains on amiodarone, dobutamine and dopamine. Blood pressure better today. Oliguric. Started on hemodialysis September 21. Receiving tube feeding. Vital signs: On vasopressor support. General: The patient appeared well nourished and normally developed. HEENT: Intubated. LUNGS: Breath sounds decreased. HEART: Regular rhythm. ABDOMEN: Soft, no distention. EXTREMITITES: 1+ edema. Objective - Vital Signs Vital signs: Vital Signs Temp 99.1 F 09/23/20 04:15 Pulse 102 H 09/23/20 07:15 Resp 23 09/23/20 07:00 BP 114/56 09/22/20 16:20 Pulse Ox 93 L 09/23/20 07:00 Intake & Output 09/22/20 09/23/20 09/23/20 18:59 06:59 18:59 Intake Total 2006.088 1689.451 117.303 Output Total 60 20 0 Balance 1904.928 2186.451 117.303 Weight 135.4 kg Intake: IV 1136 786 78 0.9 Normal Saline 36 36 3 Pressure Bag Calcium Gluconate 2 gm In 100 Sodium Chloride 0.9% 100 ml @ 100 mls/hr IVPB ONCE ONE Rx#:[id number] Dextrose 5% in Water 1, 150 000 ml @ 75 mls/hr IV . [id number] [facility] with Sodium Bicarb (1 Meq/ml) 150 ml Rx#:[id number] Piperacillin-Tazobactam 3 100 .375 gm In Sodium Chloride 0.9% 100 ml @ 25 mls/hr IVPB Q12HR [facility] Rx #:[id number] Sodium Chloride 0.9% 1, 750 750 75 000 ml @ 75 mls/hr IV . [id number] [facility] Rx#:[id number] Intake, IV Titration 594.088 603.451 39.303 Amount Amiodarone 450 mg In 228.06 Dextrose 5% in Water 250 ml @ 0.5 MG/MIN 16.667 mls/hr IV .Q15H [facility] Rx#: [id number] DOBUTamine DRIP 500 mg In 233.847 Dextrose/Water 1 250ml. bag @ 2.5 MCG/KG/MIN 10. 206 mls/hr IV .Q24H [facility] Rx#:[id number] DOPamine DRIP 800 mg In 64.12 Dextrose/Water 1 250ml. bag @ 1.25 MCG/KG/MIN 2. 897 mls/hr IV .Q24H [facility] Rx#:[id number] Norepinephrine 8 mg In 3.247 Sodium Chloride 0.9% 250 ml @ 0.05 MCG/KG/MIN 13. 166 mls/hr IV .[id number] [facility] Rx#:[id number] propofoL 1,000 mg In 292.874 375.391 39.303 Empty Bag 1 bag @ Titrate IV .Q0M [facility] Rx#: [id number] Tube Feeding 216 270 Other 60 30 Output: Urine 60 20 0 Hemodialysis 0 Other: Voiding Method Indwelling Catheter Indwelling Catheter # Bowel Movements 1 ABP, PAP, CO, CI - Last Documented Arterial Blood Pressure 104/55 - Labs CBC & Chem 7: 09/23/20 04:12 09/23/20 04:12 Labs: Abnormal Lab Results - Last 24 Hours (Table) 09/23/20 09/23/20 09/23/20 Range/Units 04:12 04:12 05:16 RBC 3.54 L (4.30-5.90) m/uL Hgb 11.9 L (13.0-17.5) gm/dL Hct 33.0 L (39.0-53.0) % Plt Count 144 L (150-450) k/uL Lymphocytes # 0.2 L (1.0-4.8) k/uL ABG pO2 62 L (83-108) mmHg ABG HCO3 20 L (21-25) mmol/L ABG O2 Saturation 89.1 L (94-97) % Sodium 134 L (137-145) mmol/L Carbon Dioxide 18 L (22-30) mmol/L BUN 50 H (9-20) mg/dL Creatinine 8.29 H* (0.66-1.25) mg/dL Calcium 6.5 L (8.4-10.2) mg/dL Microbiology - Last 24 Hours (Table) 09/18/20 10:38 Blood Culture - Preliminary Blood No Growth after 96 hours 09/18/20 10:45 Blood Culture - Preliminary Blood No Growth after 96 hours Assessment and Plan Plan: Assessment: 1. Acute kidney injury secondary to ATN secondary to cardiac arrest and cardiogenic shock. Oliguric. Started on hemodialysis September 21. 2. Status post cardiac arrest. 3. Coronary artery disease status post catheterization with stent placement to the circumflex on 09/17/2020. 4. Cardiogenic shock maintained on dobutamine and dopamine. Ejection fraction 20-25%. 5. Metabolic acidosis secondary to acute kidney injury. Status post bicarb drip. 6. Acute hypoxic respiratory failure. 7. Hypocalcemia secondary to acute kidney injury. Plan: Maintain normal saline. Maintain tube feeds. 2 A of sodium bicarbonate IV push today. 1 g IV calcium gluconate today. No response in urine output with IV Lasix. Wean vasopressors. Hold hemodialysis today and plan for next treatment tomorrow.
[2020-09-23] MEDS ORDERED: CALCIUM GLUCONATE 1 GM in SODIUM CHLORIDE 0.9% 100 ML IVPB ONE (08:30)
[2020-09-23] MEDS ORDERED: SODIUM BICARB 8.4% 50 ML SYR (1 MEQ/ML) IV ONE ×2 (08:55→09:00)
[2020-09-23] MEDS: fentaNYL (PF) 2,500 MCG in SODIUM CHLORIDE 0.9% 200 ML IV SCH (09:17)
[2020-09-23] MEDS: CLOPIDOGREL 75 MG TAB PO SCH (09:44)
[2020-09-23] MEDS: ASPIRIN 81 MG PO SCH (09:44)
[2020-09-23] MEDS: CHLORHEXIDINE GLUCONATE 15 ML CUP MUCOUS MEM SCH ×2 (09:44→21:30)
[2020-09-23] MEDS: HEPARIN SODIUM,PORCINE/PF 5,000 UNIT/0.5 ML SYRINGE SQ SCH ×2 (09:44→21:31)
[2020-09-23] MEDS: PANTOPRAZOLE 40 MG/10 ML VIAL IVP SCH (09:44)
[2020-09-23] MEDS: SODIUM CHLORIDE 0.9% 1,000 ML IV SCH (09:45)
--- NOTE | 2020-09-23 10:39 | P.PN ---
Subjective Progress Note Date: 09/23/20 Principal diagnosis: Cardiac arrest. Pulmonary consult dated 09/17/2020. 59-year-old male who apparently had an dju-xa-rznkcnoj cardiac arrest. EMS was called. His provided is danger chest compressions. When EMS arrived, the patient was in ventricular fibrillation arrest. The patient apparently started having chest compressions, received 3 defibrillations, and 2 rounds of epinephrine. The patient was apparently then intubated in the emergency room by the emergency room physician. The patient was taken to the [facility]. The patient had a stent placed in his circumflex coronary artery. Currently, he's on the ventilator. He is on the volume assist control mode, tidal volume 500, rate 24, FiO2 40%, PEEP of 8. Blood gases on the same settings, except 50%, patricia wed PaO2 of 127 pCO2 of 40, and a pH 7.36. The patient remains on a Lasix drip at 10 mg an hour saline at 150 mL an hour, propofol at 40 mcg/kg/m, norepinephrine at 2 mcg/m. We are going to do a daily interruption of sedation to evaluate the patient's neurologic status. In addition, the patient will need an EEG, and neurology consultation. We'll attempt to wean the norepinephrine. White count 11.4, hemoglobin, hematocrit, and platelet count all normal. PT 15.4, INR 1.5, PTT 52, and d-dimer greater than 34.10. Sodium 141, potassium 3.8, chlorides 107, CO2 23, anion gap 11, BUN 25, and creatinine 1.32. AST 347, ALT is 296, and LDH 2314. Troponins were 0.238 and 3.510. Chest x-rays co nsistent with cardiomegaly, and CHF. Progress note dated 09/18/2020. 59-year-old male with a history of jyr-ia-bxdnsuzp cardiac arrest. The patient may have had a prolonged period of resuscitation. The patient was receiving bystander CPR by his . EMS arrived, and continue with chest compressions, defibrillation, and 2 rounds of epinephrine. The patient was intubated in the emergency department by the emergency room physician. The patient was taken to the catheterization laboratory. His stent placement in circumflex coronary artery, and also, an Impella device was inserted. Currently, white count 12.5, hemoglobin 14.3, hematocrit 42.8, and platelet count 168,000. Blood gases show pO2 70, pCO2 35, and a pH is 7.42. His ventilator settings include the volume assist control mode, rate 24, tidal volume 500, FiO2 50%, PEEP of 10. The patient remains on dobutamine at 3 g kilogram per minute, propofol at 70 mcg/kg/m, saline at 125 mL an hour, and heparin via weightbase protocol. Tube feedings has not yet been started. Hopefully, the Impella can be removed today. Sodium 143, potassium 3.1, chlorides 111, CO2 22, anion gap 10, BUN 27, creatinine 1.78. Other than cardiomegaly, the chest x-ray looks pretty good. Progress note dated 09/19/2020. 59-year-old male with a history of aaf-tn-qxopadwn cardiac arrest. The patient appears to have a significantly prolonged period of resuscitation, and may not have received proper oxygenation before arriving in the emergency room. The patient initially had bystander CPR by his . EMS arrived, and provided chest compressions. The patient was defibrillated 3 and received 2 rounds of epinephrine. The patient was not intubated until they arrived in the emergency department. The patient was taken to the catheterization laboratory. The patient is stent placed in his circumflex coronary artery. In addition, an Imp lizbeth device was inserted, and that was removed yesterday. Currently, the patient's on the volume assist control mode rate of 24, to be increased up to 28, tidal volume 500, FiO2 50%, PEEP of 15. The FiO2 be dropped down to 40%. Arterial blood gases show pO2 of 109, pCO2 of 52, and a pH is 7.23. Currently, the patient's on saline 75 mL an hour, dopamine at 2.5 mcg/kg/m, dobutamine at 3.5 mcg/kg/m, norepinephrine at 40 mcg/m, propofol at 60 mcg/kg/m, fentanyl at 2 mcg/kg/h, heparin weight based protocol, and Nimbex at 0.5 mcg/kg/m, with jauhr-wa-oytu monitoring. Nephrology will be consulted for worsening renal function. In addition, we'll start the patient on tube feeds. White count is 13.7, hemoglobin 13.5, hematocrit 38.9, platelet count 159,000. Sodium 141, potassium 4.3, chlorides 109, CO2 21, anion gap 11, BUN and creatinine are 38 and 3.38. Chest x-ray shows bibasilar infiltrates and/or atelectasis, right greater than left. Progress note dated 09/20/2020. 59-year-old male with a history of xdd-pe-wcyffspg cardiac arrest. The patient name sustained significant anoxic brain injury. He remains on mechanical ventilator. He is on the volume assist control mode, rate 28 tidal volume 500, FiO2 40%, PEEP of 15. Blood gases showed pO2 of 88, pCO2 43, and a pH is 7.24. These blood gases are consistent with a mild metabolic acidosis. The patient remains on saline at 70 mL an hour, dopamine at 2.5 mcg/kg/m, dobutamine at 3.5 mcg/kg/m, norepinephrine 33 mcg/m, Nimbex has been weaned off, propofol 50 mcg/kg/m, fentanyl 1 mcg/kg/h, and tube feedings are currently on hold because of high residuals. The patient will have a PICC line placed. The patient's currently on Zosyn. Microbiology is negative. Echocardiogram shows an ejection fraction of less than 20%. He'll be started on Reglan. After he received Reglan, tube feeds will be resumed. White count is 9.1, hemoglobin 12, hematocrit 34.5, and platelet count 128,000. Sodium 139, potassium 4.2, chlorides 108, CO2 18, anion gap 13, BUN 49, with a creatinine 6.51. Chest x- ray shows left perihilar and right lower lobe infiltrates, likely consistent with pneumonia. Progress note dated 09/21/2020. 59-year-old male, with history of vni-kn-zifopivi cardiac arrest. The patient had bystander CPR provided by his . The patient likely sustained anoxic brain injury. The patient remains on the mechanical ventilator. Ventilator settings include the volume assist control mode, rate 28, tidal volume 500, FiO2 40%, PEEP of 10. Blood gases show pO2 of 83, pCO2 41, and a pH is 7.26. The patient's on D5W with 1 ampule of sodium bicarbonate, at 75 mL an hour. In addition, the patient is on propofol 60 mcg/kg/m, dopamine at 2.5 mcg/kg/m, dobutamine at 3.5 mcg/kg/m, saline at 10 mL an hour, and norepinephrine at 41 mcg/m. The patient's also getting vital high protein at 10 mL an hour. The patient is to receive hemodialysis today. The patient's on Zosyn empirically. White count 7.7, hemoglobin 11.5, hematocrit 33.8, platelet count 127,000. Sodium 137, potassium 4, chlorides 104, CO2 17, anion gap 16, BUN 56, creatinine 8.99. Chest x-rays consistent with bilateral infiltrates and atelectasis, which is worse compared to the prior x-ray. Progress note dated 09/22/2020. 59-year-old male with a history of ioo-hb-erczcaxt cardiac arrest. Apparently, his provided CPR until EMS arrived. We feel the patient may have sustained significant anoxic brain injury, because the patient apparently was not intubated until he arrived in the emergency department. The patient did receive 3 defibrillations at the scene, and also to rounds of epinephrine. Apparently chest compressions were being provided by the Faustino device. Currently, the patient remains on mechanical ventilator. I think daily discussions with the , giving her updates. The patient remains on the volume assist control mode, rate 28, tidal volume 500, FiO2 60%, PEEP of 10. Blood gases show a PaO2 of 84, PaCO2 of 38, and a pH is 7.38. The patient's currently on D5W with 1 amp of sodium bicarbonate at 75 mL an hour, will follow at 30 g, dopamine at 2.5 mcg/kg/m, norepinephrine which is been weaned off, saline at 10 mL an hour, dobutamine at 3.5 mcg/kg/m, and amiodarone at 1 mg/m in addition, the patient's receiving vital high protein at goal, which is 27 mL an hour. The patient had a daily interruption of sedation today, and his mental status was not improved whatsoever. The patient was re-sedated. The was updated. White count 8.3, hemoglobin 11.5, hematocrit 30.4, platelet count 126,000. Sodium 133, potassium 3.6, chlorides 98, CO2 21, anion gap 14, BUN 49, and creatinine 8.20. Ionized calcium was low at 3.5. The patient did receive some calcium gluconate. Chest x-ray shows consolidation in the left lower lobe. Progress note dated 09/23/2020. 59-year-old male with history of ssy-rn-pteiyhiq cardiac arrest. His provided CPR at the scene. EMS arrived. The patient apparently was found to have a ventricular fibrillation arrest. The patient was defibrillated 3 times, and got to rounds of epinephrine. The patient was intubated in the emergency department. He remains on mechanical ventilator. Yesterday, the decided to make the patient comfort measures. Surprisingly, he became more alert. Hence, the comfort measures orders were rescinded. Off of sedation, the patient appears to be having some recovery of neurologic function. Currently, he's on the volume assist control mode, rate 28, tidal volume 500, FiO2 60%, and a PEEP of 10. Blood gases today show a PaO2 of 62, PaCO2 36, and pH is 7.36. Currently, the patient is on propofol at 50 mcg/kg/m, dobutamine at 3.5 mcg/kg/m, saline at 75 mL an hour, amiodarone at 0.5 mg/m, dopamine has been discontinued, and the patient's on vital high protein at 27 mL an hour, which is goal. We will DC the Zosyn. No hemodialysis planned for today. A brain CT showed similar findings. White count 7.4, hemoglobin 11.9, hematocrit 33, and platelet count 144,000. Sodium 134, potassium 4.2, chlorides 98, CO2 18, anion gap 18, BUN 50, creatinine 8.29. Calcium was 6.5. Chest x-ray shows low lung volumes, bibasilar interstitial opacities, small left-sided pleural effusion. Microbiologic studies are all negative. Objective - Vital Signs Vital signs: Vital Signs Temp 99.6 F 09/23/20 08:00 Pulse 94 09/23/20 09:15 Resp 35 H 09/23/20 09:15 BP 114/56 09/22/20 16:20 Pulse Ox 95 09/23/20 09:15 Intake & Output 09/22/20 09/23/20 09/23/20 18:59 06:59 18:59 Intake Total 2005.088 1689.451 518.000 Output Total 60 20 16 Balance 6964.378 0928.451 502.000 Weight 135.4 kg Intake: IV 1136 786 334 0.9 Normal Saline 36 36 9 Pressure Bag Calcium Gluconate 1 gm In 100 Sodium Chloride 0.9% 100 ml @ 100 mls/hr IVPB ONCE ONE Rx#:[id number] Calcium Gluconate 2 gm In 100 Sodium Chloride 0.9% 100 ml @ 100 mls/hr IVPB ONCE ONE Rx#:[id number] Dextrose 5% in Water 1, 150 000 ml @ 75 mls/hr IV . [id number] JORDANA with Sodium Bicarb (1 Meq/ml) 150 ml Rx#:[id number] Piperacillin-Tazobactam 3 100 .375 gm In Sodium Chloride 0.9% 100 ml @ 25 mls/hr IVPB Q12HR [facility] Rx #:[id number] Sodium Chloride 0.9% 1, 750 750 225 000 ml @ 75 mls/hr IV . [id number] [facility] Rx#:[id number] Intake, IV Titration 594.088 603.451 100.000 Amount Amiodarone 450 mg In 228.06 Dextrose 5% in Water 250 ml @ 0.5 MG/MIN 16.667 mls/hr IV .Q15H [facility] Rx#: [id number] DOBUTamine DRIP 500 mg In 233.847 Dextrose/Water 1 250ml. bag @ 2.5 MCG/KG/MIN 10. 206 mls/hr IV .Q24H [facility] Rx#:[id number] DOPamine DRIP 800 mg In 64.12 Dextrose/Water 1 250ml. bag @ 1.25 MCG/KG/MIN 2. 897 mls/hr IV .Q24H [facility] Rx#:[id number] Norepinephrine 8 mg In 3.247 Sodium Chloride 0.9% 250 ml @ 0.05 MCG/KG/MIN 13. 166 mls/hr IV .[id number] [facility] Rx#:[id number] propofoL 1,000 mg In 292.874 375.391 100.000 Empty Bag 1 bag @ Titrate IV .Q0M [facility] Rx#: [id number] Tube Feeding 216 270 54 Other 60 30 30 Output: Urine 60 20 16 Hemodialysis 0 Other: Voiding Method Indwelling Catheter Indwelling Catheter # Bowel Movements 1 ABP, PAP, CO, CI - Last Documented Arterial Blood Pressure 105/59 - Exam No acute distress, sedated, with possible anoxic brain injury. The patient has an orally placed endotracheal tube. With a sedation holiday, the patient appears to be showing some neurologic improvement. HEENT examination is grossly unremarkable. Neck supple. Full range of motion. No adenopathy thyromegaly or neck vein distention. Cardiovascular examination reveals regular rhythm rate. S1-S2 normal. No S3 or S4. No discernible murmur noted. Heart sounds distant. Heart rate 94 bpm. Lungs reveal scattered rhonchi, and some scattered crackles. Breath sounds are equal bilaterally but diminished throughout. There are no wheezes. Abdomen soft but without bowel sounds. No obvious masses or tenderness. Extremities are intact. No cyanosis clubbing or edema. Skin is without rash or lesion. Neurologic examination reveals the patient, showing some improvement neurologic function. - Labs CBC & Chem 7: 09/23/20 04:12 09/23/20 04:12 Labs: Abnormal Lab Results - Last 24 Hours (Table) 09/23/20 09/23/20 09/23/20 Range/Units 04:12 04:12 04:12 RBC 3.54 L (4.30-5.90) m/uL Hgb 11.9 L (13.0-17.5) gm/dL Hct 33.0 L (39.0-53.0) % Plt Count 144 L (150-450) k/uL Lymphocytes # 0.2 L (1.0-4.8) k/uL ABG pO2 (83-108) mmHg ABG HCO3 (21-25) mmol/L ABG O2 Saturation (94-97) % Sodium 134 L (137-145) mmol/L Carbon Dioxide 18 L (22-30) mmol/L BUN 50 H (9-20) mg/dL Creatinine 8.29 H* (0.66-1.25) mg/dL Calcium 6.5 L (8.4-10.2) mg/dL Phosphorus 9.9 H* (2.5-4.5) mg/dL 09/23/20 Range/Units 05:16 RBC (4.30-5.90) m/uL Hgb (13.0-17.5) gm/dL Hct (39.0-53.0) % Plt Count (150-450) k/uL Lymphocytes # (1.0-4.8) k/uL ABG pO2 62 L (83-108) mmHg ABG HCO3 20 L (21-25) mmol/L ABG O2 Saturation 89.1 L (94-97) % Sodium (137-145) mmol/L Carbon Dioxide (22-30) mmol/L BUN (9-20) mg/dL Creatinine (0.66-1.25) mg/dL Calcium (8.4-10.2) mg/dL Phosphorus (2.5-4.5) mg/dL Microbiology - Last 24 Hours (Table) 09/18/20 10:38 Blood Culture - Preliminary Blood No Growth after 96 hours 09/18/20 10:45 Blood Culture - Preliminary Blood No Growth after 96 hours Assessment and Plan Assessment: Status post pha-rq-msasouha cardiopulmonary arrest, secondary to ST segment elevation myocardial infarction, status post cardiopulmonary resuscitation with return of spontaneous circulation, and stent placement in the circumflex coronary artery, and placement of an Impella device. Rule out anoxic brain injury. Severe ischemic cardiomyopathy with an ejection fraction of less than 20%. Acute kidney injury, possibly related to ATN, with initiation of hemodialysis. Congestive hepatopathy and shock liver. History of hypertension. History of hypothyroidism. Possible bilateral pneumonia. Plan: Plan dated 09/17/2020. We will attempt to wean the patient off the norepinephrine. We'll also do a daily interruption of sedation. In addition, we'll try to turn down the IV fluids. Chest x-ray clearly shows congestive heart failure. In addition, the patient will have a neurology consult and EEG. Additional recommendations and suggestions are forthcoming. Prognosis is very guarded. We will continue to follow and make recommendations where appropriate. Plan dated 09/18/2020. Currently, the patient's gas exchange is reasonable. Chest x-ray shows cardiomegaly. The patient remains on dobutamine at 3 mcg/kg/m. The patient has been sedated with propofol at 70 mcg/kg/m. Hopefully, the Impella device will come out today. Once that cell, it'll be easier to wean the patient. Additional recommendations and suggestions are forthcoming. I likely will do a daily interruption of sedation anyway. Neurology has been consulted. EEG was consistent with mild to moderate encephalopathy. Prognosis is guarded. We will continue to follow and make recommendations where appropriate. Plan dated 09/19/2020. Currently, the patient's doing worse. Patient's on numerous strips including dopamine, dobutamine, norepinephrine, propofol, fentanyl, heparin, and Nimbex. The patient has developed acute kidney injury, possibly related to ATN. In juan tion, the patient's ejection fraction of less than 20%. His prognosis is very poor. We'll have discussions with his at this point. Neurology has seen the patient. Cardiology is also involved in the care of this patient. We will continue to follow make recommendations where appropriate. Prognosis is very guarded. Plan dated 09/20/2020. Currently, the patient's manifesting signs and symptoms of multiorgan system failure. Currently, organ involvement with the heart, lungs, kidneys, and brain. The patient's on multiple drips, including dopamine, the beginning, norepinephrine, propofol, and fentanyl. The patient will get Reglan 10 mg 4 times a day, we will resume tube needs. Patient's currently on Zosyn 3.375 g every 12. Microbiology is negative. A PICC line will be placed. I will call the Luiza, give her an update. Overall prognosis is very poor. If she wants to continue life support, I would probably aspirin early trach and PEG tube placement. Plan dated 09/21/2020. Today, I had a very pelon discussion with the patient's , and daughter. They removed the room on rounds. I gave them when I felt was a very honest assessment of their family member. I think the patient has an extremely poor prognosis given the events that took place on the day of his cardiac arrest. Very concerned about anoxic brain injury. On daily interruption of sedation, al though the patient does move all 4 extremities, nothing purposeful is noted. I did tell the that I thought it was too early to give up on the patient. We'll continue to follow make recommendations were appropriate. In addition, the patient has very poor cardiac function, with an ejection fraction of less than 20%. Apparently, cardiology is also pain patient of the family. I think that's appropriate. The patient remains on D5W with sodium bicarbonate, propofol, dopamine, dobutamine, norepinephrine, and tube feeds. Plan dated 09/22/2020. The patient remains on the chemical ventilator. We been updating the daily. Blood gases are reasonable. The patient remains on a number drips including a sodium bicarbonate drip, propofol, dopamine, amiodarone, and dobutamine. Norepinephrine is been weaned off. The patient is on vital high protein at goal. No additional recommendations are made at this time. We will continue to follow and make suggestions where appropriate. The patient did have a daily interruption of sedation, with no improvement in his overall neurologic status. The was in the room, when we did this. Plan dated 09/23/2020. The patient remains on the mechanical ventilator. The patient's is updated on a daily basis. The patient was going to be comfort care yesterday, but because of some improvement neurologic function, the patient's changed her mind. Currently, he is on propofol, dobutamine, amiodarone, and nutrition. Dopamine has been discontinued. We will DC Zosyn. No hemodialysis today. The patient will be placed on a fentanyl drip if we cannot control the patient's respiratory rate and agitation just with propofol. Additional recommendations and suggestions are forthcoming. We will continue to follow and make recomm endations where appropriate. Time with Patient: Greater than 30
[2020-09-23] MEDS ORDERED: methylPREDNISolone SOD SUCCI 125 MG/2 ML VIAL IV STA (11:42)
--- NOTE | 2020-09-23 11:51 | P.PN ---
Subjective Progress Note Date: 09/23/20 Principal diagnosis: v-fib arrest Patient is a 59-year-old male with a history of hypertension, hypothyroidism, and obesity who presented to the ER after cardiac arrest in the field. He had multiple rounds of CPR, Epi, and Defib prior to obtaining ROSC. It appears that his down time in the field was approximately 30 minutes on review of the EMS run sheet. He was intubated and sedated he underwent a left heart cath with stent to the LAD and impella placement. Echocardiogram demonstrated an EF of less than 20% with global hypokenesis. He was determined to be in cardiogenic shock requiring dopamine, dobutamine, and levophed. He has required a Nimbex drip to maintain adequate ventilation until 09/20/20. He demonstrated shock liver on arrival. He has also had progressive anuric renal failure, nephrology was consulted HD was initiated on 09/21/20. He had one abnormal EEG with worsening of EEG on 09/20/20. We have been unable to wean sedation due to agitation and there are concerns for severe anoxic encephalopathy. His CXR was worsening and procalcitonin was elevated and he was started on zosyn with concerns for possible underlying PNA. He had not been awake or following commands with sedation holidays. On 09/22/20 he clear shook head no in response to questions. Patient seen and examined at bedside he is sedated and unresponsive. Nursing had noted worsening rash over the last 24 hours. General: non toxic, no distress, appears at stated age, obese Derm: warm, dry Head: atraumatic, normocephalic, symmetric Eyes: no lid lesion, anicteric sclera Mouth: no lip lesion, mucus membranes dry with lip cracking Cardiovascular: S1S2 reg, no murmur, positive posterior tibial pulse bilateral, Lungs: Course bilateral, no rhonchi, no rales , no accessory muscle use him on vent Abdominal: soft, nontender to palpation, no guarding, no appreciable organomegaly, Dykes catheter without signs of urine production Ext: no gross muscle atrophy, 2+ edema, no contractures Neuro: wiggling toes possibly to commands. squeezing hands, PERRL not tracking Psych: Sedated on vent V. fib arrest due to ST segment elevated myocardial infarction status post PCI to the circumflex and impella placement Acute systolic congestive heart failure Ischemic cardiomyopathy with ejection fraction less than 20% Cardiogenic shock - dopamine off 09/23/20, dobutamine, levophed off by 09/22/20 - maintaine BP - cardio recs - ASA, Plavix, lipitor Generalized Dermatitis - solumedrol X 1 Anoxic encephalopathy - Patient clearly indicating with head shake that he doesn't want to give up - neuro recs - continue with sedation holidays Acute kidney injury secondary to hypoperfusion and likely ATN - nephrology recs - HD today - Avoid nephrotoxic agents - maintain map >65 Acute hypoxic respiratory failure, Pneumonia possible gram negative, completed treatment - off zosyn - pulm recs - pulm hygeine Anemia - Thrombocytopenia - follow CBC - no indication for transfusion at this point in time. Morbid obesity with BMI 37.7 Shock liver, resolved Poor overall prognosis. DVT prophylaxis: heparin Discussed with: nursing, , A total of 35 minutes was spent on the care of this complex patient more than 50% of the time was spent in counseling and care coordination. Objective - Vital Signs Vital signs: Vital Signs Temp 99.6 F 09/23/20 08:00 Pulse 106 H 09/23/20 11:30 Resp 32 H 09/23/20 11:00 BP 114/56 09/22/20 16:20 Pulse Ox 97 09/23/20 11:30 Intake & Output 09/22/20 09/23/20 09/23/20 18:59 06:59 18:59 Intake Total 2005.088 1689.451 728.000 Output Total 60 20 16 Balance 2497.467 9436.451 712.000 Weight 135.4 kg Intake: IV 1136 786 490 0.9 Normal Saline 36 36 15 Pressure Bag Calcium Gluconate 1 gm In 100 Sodium Chloride 0.9% 100 ml @ 100 mls/hr IVPB ONCE ONE Rx#:[id number] Calcium Gluconate 2 gm In 100 Sodium Chloride 0.9% 100 ml @ 100 mls/hr IVPB ONCE ONE Rx#:[id number] Dextrose 5% in Water 1, 150 000 ml @ 75 mls/hr IV . [id number] [facility] with Sodium Bicarb (1 Meq/ml) 150 ml Rx#:[id number] Piperacillin-Tazobactam 3 100 .375 gm In Sodium Chloride 0.9% 100 ml @ 25 mls/hr IVPB Q12HR [facility] Rx #:[id number] Sodium Chloride 0.9% 1, 750 750 375 000 ml @ 75 mls/hr IV . [id number] [facility] Rx#:[id number] Intake, IV Titration 594.088 603.451 100.000 Amount Amiodarone 450 mg In 228.06 Dextrose 5% in Water 250 ml @ 0.5 MG/MIN 16.667 mls/hr IV .Q15H [facility] Rx#: [id number] DOBUTamine DRIP 500 mg In 233.847 Dextrose/Water 1 250ml. bag @ 2.5 MCG/KG/MIN 10. 206 mls/hr IV .Q24H [facility] Rx#:[id number] DOPamine DRIP 800 mg In 64.12 Dextrose/Water 1 250ml. bag @ 1.25 MCG/KG/MIN 2. 897 mls/hr IV .Q24H [facility] Rx#:[id number] Norepinephrine 8 mg In 3.247 Sodium Chloride 0.9% 250 ml @ 0.05 MCG/KG/MIN 13. 166 mls/hr IV .[id number] [facility] Rx#:[id number] propofoL 1,000 mg In 292.874 375.391 100.000 Empty Bag 1 bag @ Titrate IV .Q0M [facility] Rx#: [id number] Tube Feeding 216 270 108 Other 60 30 30 Output: Urine 60 20 16 Hemodialysis 0 Other: Voiding Method Indwelling Catheter Indwelling Catheter # Bowel Movements 1 ABP, PAP, CO, CI - Last Documented Arterial Blood Pressure 102/48 - Labs CBC & Chem 7: 09/23/20 04:12 09/23/20 04:12 Labs: Abnormal Lab Results - Last 24 Hours (Table) 09/23/20 09/23/20 09/23/20 Range/Units 04:12 04:12 04:12 RBC 3.54 L (4.30-5.90) m/uL Hgb 11.9 L (13.0-17.5) gm/dL Hct 33.0 L (39.0-53.0) % Plt Count 144 L (150-450) k/uL Lymphocytes # 0.2 L (1.0-4.8) k/uL ABG pO2 (83-108) mmHg ABG HCO3 (21-25) mmol/L ABG O2 Saturation (94-97) % Sodium 134 L (137-145) mmol/L Carbon Dioxide 18 L (22-30) mmol/L BUN 50 H (9-20) mg/dL Creatinine 8.29 H* (0.66-1.25) mg/dL Calcium 6.5 L (8.4-10.2) mg/dL Phosphorus 9.9 H* (2.5-4.5) mg/dL 09/23/20 Range/Units 05:16 RBC (4.30-5.90) m/uL Hgb (13.0-17.5) gm/dL Hct (39.0-53.0) % Plt Count (150-450) k/uL Lymphocytes # (1.0-4.8) k/uL ABG pO2 62 L (83-108) mmHg ABG HCO3 20 L (21-25) mmol/L ABG O2 Saturation 89.1 L (94-97) % Sodium (137-145) mmol/L Carbon Dioxide (22-30) mmol/L BUN (9-20) mg/dL Creatinine (0.66-1.25) mg/dL Calcium (8.4-10.2) mg/dL Phosphorus (2.5-4.5) mg/dL Microbiology - Last 24 Hours (Table) 09/18/20 10:38 Blood Culture - Preliminary Blood No Growth after 96 hours 09/18/20 10:45 Blood Culture - Preliminary Blood No Growth after 96 hours
[2020-09-23 11:55] LABS: Glucose,Whole Blood 90 mg/dL (75-99)
[2020-09-23] MEDS: DOBUTamine DRIP 500 MG in DEXTROSE/WATER 1 250ML.BAG IV SCH (12:21)
[2020-09-23] MEDS: CALCIUM ACETATE 667 MG TAB PO SCH ×2 (12:25→17:36)
--- NOTE | 2020-09-23 12:58 | P.PN ---
Progress Note - Text Patient remains intubated He is off norepinephrine now His blood pressure is elevated on dopamine He is on low-dose IV amiodarone for AF suppression He has had brief episodes of A. fib, self-limiting On examination pulse rate is in the 90s to 100 100s respirations 32 and blood pressure 137 68 mmHg Impression Acute myocardial infarction Cardiogenic shock Acute respiratory failure Paroxysmal atrial fibrillation Minimal intermittent neurologic recovery noted Plan Stop dopamine Continue dobutamine Patient's urine output is quite low Continue low-dose amiodarone
--- NOTE | 2020-09-23 14:21 | P.PN ---
Subjective Progress Note Date: 09/23/20 The patient is seen in neurologic follow-up on September 23, 2020, via teleneurology. The patient was originally admitted following out of hospital cardiac arrest. Neurology saw the patient regarding cerebral anoxia and or prognosis. EEG was performed on 2 occasions. EEG reports severe slowing of the background rhythm, consistent with moderate to severe encephalopathy. Yesterday I had stopped in to see the patient. At that time the patient's reported that she had decided on comfort care measures. Apparently later in the day, the patient became more responsive. He was reportedly following commands, awake and visually tracking. He was appropriately responding to questions with a nod or shake of the head. This morning, the patient continues to show neurologic improvement. Propofol has been turned off. The patient does remain on dobutamine and amiodarone drips. Objective - Vital Signs Vital signs: Vital Signs Temp 99.1 F 09/23/20 04:15 Pulse 102 H 09/23/20 07:15 Resp 23 09/23/20 07:00 BP 114/56 09/22/20 16:20 Pulse Ox 93 L 09/23/20 07:00 Intake & Output 09/22/20 09/23/20 09/23/20 18:59 06:59 18:59 Intake Total 2005.088 1689.451 125.156 Output Total 60 20 0 Balance 8148.104 1991.451 125.156 Weight 135.4 kg Intake: IV 1136 786 78 0.9 Normal Saline 36 36 3 Pressure Bag Calcium Gluconate 2 gm In 100 Sodium Chloride 0.9% 100 ml @ 100 mls/hr IVPB ONCE ONE Rx#:[id number] Dextrose 5% in Water 1, 150 000 ml @ 75 mls/hr IV . [id number] [facility] with Sodium Bicarb (1 Meq/ml) 150 ml Rx#:[id number] Piperacillin-Tazobactam 3 100 .375 gm In Sodium Chloride 0.9% 100 ml @ 25 mls/hr IVPB Q12HR [facility] Rx #:[id number] Sodium Chloride 0.9% 1, 750 750 75 000 ml @ 75 mls/hr IV . [id number] [facility] Rx#:[id number] Intake, IV Titration 594.088 603.451 47.156 Amount Amiodarone 450 mg In 228.06 Dextrose 5% in Water 250 ml @ 0.5 MG/MIN 16.667 mls/hr IV .Q15H [facility] Rx#: [id number] DOBUTamine DRIP 500 mg In 233.847 Dextrose/Water 1 250ml. bag @ 2.5 MCG/KG/MIN 10. 206 mls/hr IV .Q24H [facility] Rx#:[id number] DOPamine DRIP 800 mg In 64.12 Dextrose/Water 1 250ml. bag @ 1.25 MCG/KG/MIN 2. 897 mls/hr IV .Q24H [facility] Rx#:[id number] Norepinephrine 8 mg In 3.247 Sodium Chloride 0.9% 250 ml @ 0.05 MCG/KG/MIN 13. 166 mls/hr IV .[id number] [facility] Rx#:[id number] propofoL 1,000 mg In 292.874 375.391 47.156 Empty Bag 1 bag @ Titrate IV .Q0M [facility] Rx#: [id number] Tube Feeding 216 270 Other 60 30 Output: Urine 60 20 0 Hemodialysis 0 Other: Voiding Method Indwelling Catheter Indwelling Catheter # Bowel Movements 1 ABP, PAP, CO, CI - Last Documented Arterial Blood Pressure 104/55 - Exam Gen.: Patient is reclining in the bed. He is intubated. He appears to be slightly restless. Respiratory rate is high. HEENT: Head is atraumatic, normocephalic. Fundus not visualized. There is no scleral icterus. Mucous membranes are moist. Heart: Regular rate and rhythm Extremities: There is diffuse, pitting edema of all 4 extremities. Neurological examination Mental status: The patient does open his eyes to his name. He follows some simple commands. He is able to wiggle his toes/feet when asked. Cranial nerves: Pupils are equal at 4 mm and reactive to light. The patient does blink to visual threat. Corneal reflexes are intact. Gag and cough reflex is intact. Motor: The patient moves both feet to command. There is some spontaneous movement of the left upper extremity. - Labs CBC & Chem 7: 09/23/20 04:12 09/23/20 04:12 Labs: Abnormal Lab Results - Last 24 Hours (Table) 09/23/20 09/23/20 09/23/20 Range/Units 04:12 04:12 05:16 RBC 3.54 L (4.30-5.90) m/uL Hgb 11.9 L (13.0-17.5) gm/dL Hct 33.0 L (39.0-53.0) % Plt Count 144 L (150-450) k/uL Lymphocytes # 0.2 L (1.0-4.8) k/uL ABG pO2 62 L (83-108) mmHg ABG HCO3 20 L (21-25) mmol/L ABG O2 Saturation 89.1 L (94-97) % Sodium 134 L (137-145) mmol/L Carbon Dioxide 18 L (22-30) mmol/L BUN 50 H (9-20) mg/dL Creatinine 8.29 H* (0.66-1.25) mg/dL Calcium 6.5 L (8.4-10.2) mg/dL Microbiology - Last 24 Hours (Table) 09/18/20 10:38 Blood Culture - Preliminary Blood No Growth after 96 hours 09/18/20 10:45 Blood Culture - Preliminary Blood No Growth after 96 hours Assessment and Plan Assessment: 1. Hypoxic/anoxic encephalopathy status post cardiac arrest-recent improvement in neurologic status 2. Acute kidney injury 3. History of hypertension Plan: 1. Consider repeat EEG 2. Wean sedation and respirator support as tolerated Time with Patient: Less than 30 (spent 25 minutes with patient via teleneurology)
[2020-09-23 18:15] LABS: Glucose,Whole Blood 121 mg/dL (75-99)
[2020-09-24] MEDS: SODIUM CHLORIDE 0.9% 1,000 ML IV SCH ×2 (00:10→13:48)
[2020-09-24] MEDS: METOCLOPRAMIDE 5 MG/ML 2 ML VIAL IVP SCH ×5 (00:18→23:53)
[2020-09-24 00:24] LABS: Glucose,Whole Blood 139 mg/dL (75-99)
[2020-09-24] MEDS: IPRATROPIUM-ALBUTEROL 3 ML NEB INHALATION SCH ×6 (00:47→19:36)
[2020-09-24] MEDS: fentaNYL (PF) 2,500 MCG in SODIUM CHLORIDE 0.9% 200 ML IV SCH ×2 (02:44→20:06)
[2020-09-24 05:20] LABS: ABG Base Excess -6.5 mmol/L; ABG HCO3 20 mmol/L (21-25); ABG Oxygen Saturation 95.9 % (94-97); ABG PCO2 37 mmHg (35-45); ABG PH 7.33 (7.35-7.45); ABG PO2 88 mmHg (83-108); ABG TCO2 21 mmol/L (19-24); Allen Test Performed? Yes
[2020-09-24] MEDS: LEVOTHYROXINE 50 MCG TAB PO SCH (05:32)
[2020-09-24] MEDS: CALCIUM ACETATE 667 MG TAB PO SCH ×3 (05:36→17:05)
[2020-09-24 06:12] LABS: Basophils % (A) 0 %; Eosinophils # (A) 0.1 k/uL (0-0.7); Eosinophils % (A) 1 %; HCT 30.4 % (39.0-53.0); HGB 11.3 gm/dL (13.0-17.5); Lymphocytes # (A) 0.3 k/uL (1.0-4.8); Lymphocytes % (A) 4 %; MCH 34.6 pg (25.0-35.0); MCV 93.4 fL (80.0-100.0); Mean Platelet Volume 7.7; Monocytes # (A) 0.5 k/uL (0-1.0); Monocytes % (A) 6 %; Neutrophils # (A) 7.9 k/uL (1.3-7.7); Neutrophils % (A) 86 %; Platelet Count 209 k/uL (150-450); RBC 3.25 m/uL (4.30-5.90); WBC 9.2 k/uL (3.8-10.6)
[2020-09-24 06:35] LABS: Potassium 5.5 mmol/L (3.5-5.1)
[2020-09-24] MEDS ORDERED: SODIUM BICARB 8.4% 50 ML SYR (1 MEQ/ML) IV STA (07:08)
[2020-09-24] MEDS: ASPIRIN 81 MG PO SCH (07:59)
[2020-09-24] MEDS: HEPARIN SODIUM,PORCINE/PF 5,000 UNIT/0.5 ML SYRINGE SQ SCH ×2 (07:59→20:00)
[2020-09-24] MEDS: CLOPIDOGREL 75 MG TAB PO SCH (07:59)
[2020-09-24] MEDS: PANTOPRAZOLE 40 MG/10 ML VIAL IVP SCH (07:59)
[2020-09-24] MEDS: CHLORHEXIDINE GLUCONATE 15 ML CUP MUCOUS MEM SCH ×2 (07:59→20:00)
[2020-09-24] MEDS: DOBUTamine DRIP 500 MG in DEXTROSE/WATER 1 250ML.BAG IV SCH (08:03)
[2020-09-24] MEDS: AMIODARONE 450 MG in DEXTROSE 5% IN WATER 250 ML IV SCH ×2 (08:19)
--- NOTE | 2020-09-24 08:51 | XR ---
EXAMINATION TYPE: XR chest 1V portable DATE OF EXAM: 09/24/2020 Comparison: 09/23/2020 Clinical History: 59-year-old male Tube placement Findings: ET tube tip at the level of the medial clavicular heads. NG tube courses below the diaphragm. Left PI CC tip at the mid SVC level. Heart mildly enlarged. Diffuse interstitial density increased. Retrocard iac opacity increased. Impression: 1. Correlate for developing pulmonary vascular congestion. 2. Worsening retrocardiac opacity probably combination of moderate effusion with adjacent atelectasis and/or consolidation.
--- NOTE | 2020-09-24 09:04 | P.PN ---
Subjective Patient is seen in follow-up for acute kidney injury. Off Levophed and dopamine. Remains on amiodarone and dobutamine. Oliguric. Started on hemod ialysis September 21. Receiving tube feeding. Vital signs: On vasopressor support. General: The patient appeared well nourished and normally developed. HEENT: Intubated. LUNGS: Breath sounds decreased. HEART: Regular rhythm. ABDOMEN: Soft, no distention. EXTREMITITES: 1+ edema. Objective - Vital Signs Vital signs: Vital Signs Temp 98.3 F 09/24/20 04:00 Pulse 93 09/24/20 08:19 Resp 16 09/24/20 07:30 BP 125/76 09/24/20 07:30 Pulse Ox 96 09/24/20 07:30 Intake & Output 09/23/20 09/24/20 09/24/20 18:59 06:59 18:59 Intake Total 2223.000 2416.273 423.56 Output Total 16 37 0 Balance 2207.000 2379.273 423.56 Weight 137.7 kg Intake: IV 1036 936 78 0.9 Normal Saline 36 36 3 Pressure Bag Calcium Gluconate 1 gm In 100 Sodium Chloride 0.9% 100 ml @ 100 mls/hr IVPB ONCE ONE Rx#:[id number] Sodium Chloride 0.9% 1, 900 900 75 000 ml @ 75 mls/hr IV . [id number] [facility] Rx#:[id number] Intake, IV Titration 800.000 886.273 345.56 Amount Amiodarone 450 mg In 250 245.56 Dextrose 5% in Water 250 ml @ 0.5 MG/MIN 16.667 mls/hr IV .Q15H [facility] Rx#: [id number] DOBUTamine DRIP 500 mg In 250 250 Dextrose/Water 1 250ml. bag @ 2.5 MCG/KG/MIN 10. 206 mls/hr IV .Q24H [facility] Rx#:[id number] fentaNYL (PF) 2,500 mcg 236.273 In Sodium Chloride 0.9% 200 ml @ Per Protocol IV .Q0M [facility] Rx#:[id number] propofoL 1,000 mg In 300.000 400 100 Empty Bag 1 bag @ Titrate IV .Q0M [facility] Rx#: [id number] Tube Feeding 297 324 Other 90 270 Output: Urine 16 37 0 Other: Voiding Method Indwelling Catheter Indwelling Catheter # Bowel Movements 1 1 ABP, PAP, CO, CI - Last Documented Arterial Blood Pressure 121/68 - Labs CBC & Chem 7: 09/24/20 05:10 09/24/20 05:10 Labs: Abnormal Lab Results - Last 24 Hours (Table) 09/23/20 09/23/20 09/24/20 Range/Units 04:12 18:13 00:11 RBC (4.30-5.90) m/uL Hgb (13.0-17.5) gm/dL Hct (39.0-53.0) % Neutrophils # (1.3-7.7) k/uL Lymphocytes # (1.0-4.8) k/uL ABG pH (7.35-7.45) ABG HCO3 (21-25) mmol/L Sodium (137-145) mmol/L Potassium (3.5-5.1) mmol/L Chloride (98-107) mmol/L Carbon Dioxide (22-30) mmol/L BUN (9-20) mg/dL Creatinine (0.66-1.25) mg/dL Glucose (74-99) mg/dL POC Glucose (mg/dL) 121 H 139 H (75-99) mg/dL Calcium (8.4-10.2) mg/dL Phosphorus 9.9 H* (2.5-4.5) mg/dL 09/24/20 09/24/20 09/24/20 Range/Units 05:10 05:10 05:15 RBC 3.25 L (4.30-5.90) m/uL Hgb 11.3 L (13.0-17.5) gm/dL Hct 30.4 L (39.0-53.0) % Neutrophils # 7.9 H (1.3-7.7) k/uL Lymphocytes # 0.3 L (1.0-4.8) k/uL ABG pH 7.33 L (7.35-7.45) ABG HCO3 20 L (21-25) mmol/L Sodium 133 L (137-145) mmol/L Potassium 5.5 H (3.5-5.1) mmol/L Chloride 97 L (98-107) mmol/L Carbon Dioxide 15 L (22-30) mmol/L BUN 69 H (9-20) mg/dL Creatinine 9.60 H* (0.66-1.25) mg/dL Glucose 103 H (74-99) mg/dL POC Glucose (mg/dL) (75-99) mg/dL Calcium 7.0 L (8.4-10.2) mg/dL Phosphorus (2.5-4.5) mg/dL Microbiology - Last 24 Hours (Table) 09/18/20 10:38 Blood Culture - Preliminary Blood No Growth after 120 hours 09/18/20 10:45 Blood Culture - Preliminary Blood No Growth after 120 hours Assessment and Plan Plan: Assessment: 1. Acute kidney injury secondary to ATN secondary to cardiac arrest and cardiogenic shock. Oliguric. Started on hemodialysis September 21. 2. Status post cardiac arrest. 3. Coronary artery disease status post catheterization with stent placement to the circumflex on 09/17/2020. 4. Cardiogenic shock maintained on dobutamine. Ejection fraction 20-25%. 5. Metabolic acidosis secondary to acute kidney injury. Status post bicarb drip. 6. Acute hypoxic respiratory failure. 7. Hypocalcemia secondary to acute kidney injury. Better. 8. Hyperphosphatemia secondary to acute kidney injury maintained on PhosLo. Plan: Hep-Lock IV fluids. Maintain tube feeds. 2 A of sodium bicarbonate given this morning. No response in urine output with IV Lasix. Wean vasopressors. Plan for hemodialysis today and again tomorrow.
--- NOTE | 2020-09-24 10:03 | P.PN ---
Subjective Progress Note Date: 09/24/20 The patient was seen and examined at the bedside. Patient continues to be on sedation and was unresponsive to stimuli. No overnight issues were reported by the nursing staff with rash noted to be improving. Objective - Vital Signs Vital signs: Vital Signs Temp 98.3 F 09/24/20 04:00 Pulse 84 09/24/20 09:30 Resp 14 09/24/20 09:30 BP 122/85 09/24/20 09:30 Pulse Ox 97 09/24/20 09:30 Intake & Output 09/23/20 09/24/20 09/24/20 18:59 06:59 18:59 Intake Total 2223.000 2416.273 498.56 Output Total 16 37 5 Balance 2207.000 2379.273 493.56 Weight 137.7 kg Intake: IV 1036 936 153 0.9 Normal Saline 36 36 3 Pressure Bag Calcium Gluconate 1 gm In 100 Sodium Chloride 0.9% 100 ml @ 100 mls/hr IVPB ONCE ONE Rx#:[id number] Sodium Chloride 0.9% 1, 900 900 150 000 ml @ 75 mls/hr IV . [id number] [facility] Rx#:[id number] Intake, IV Titration 800.000 886.273 345.56 Amount Amiodarone 450 mg In 250 245.56 Dextrose 5% in Water 250 ml @ 0.5 MG/MIN 16.667 mls/hr IV .Q15H [facility] Rx#: [id number] DOBUTamine DRIP 500 mg In 250 250 Dextrose/Water 1 250ml. bag @ 2.5 MCG/KG/MIN 10. 206 mls/hr IV .Q24H [facility] Rx#:[id number] fentaNYL (PF) 2,500 mcg 236.273 In Sodium Chloride 0.9% 200 ml @ Per Protocol IV .Q0M [facility] Rx#:[id number] propofoL 1,000 mg In 300.000 400 100 Empty Bag 1 bag @ Titrate IV .Q0M [facility] Rx#: [id number] Tube Feeding 297 324 Other 90 270 Output: Urine 16 37 5 Other: Voiding Method Indwelling Catheter Indwelling Catheter Indwelling Catheter # Bowel Movements 1 1 ABP, PAP, CO, CI - Last Documented Arterial Blood Pressure 132/68 - Exam General: Non-toxic, in no acute distress, appears stated age, obese HEENT: NC/AT, anicteric sclerae, moist conjunctiva, no lid-lag, PERRL Cardiovascular: S1/S2 wnl, no murmurs, rubs, or gallops Lungs: Clear to auscultation, normal respiratory effort, no accessory muscle use Abdominal: Soft, non-tender, non-distended, no guarding, rebound, or rigidity Skin: Warm, dry Extremities: 2+ edema anibal LEs, no contractures Psychiatric: Alert and oriented to person, place and time, appropriate affect Neuro: Unable to assess, unresponsive to noxious stimuli, pupils 3 mm round, equal, and reactive bilaterally - Labs CBC & Chem 7: 09/24/20 05:10 09/24/20 05:10 Labs: Abnormal Lab Results - Last 24 Hours (Table) 09/23/20 09/24/20 09/24/20 Range/Units 18:13 00:11 05:10 RBC 3.25 L (4.30-5.90) m/uL Hgb 11.3 L (13.0-17.5) gm/dL Hct 30.4 L (39.0-53.0) % Neutrophils # 7.9 H (1.3-7.7) k/uL Lymphocytes # 0.3 L (1.0-4.8) k/uL ABG pH (7.35-7.45) ABG HCO3 (21-25) mmol/L Sodium (137-145) mmol/L Potassium (3.5-5.1) mmol/L Chloride (98-107) mmol/L Carbon Dioxide (22-30) mmol/L BUN (9-20) mg/dL Creatinine (0.66-1.25) mg/dL Glucose (74-99) mg/dL POC Glucose (mg/dL) 121 H 139 H (75-99) mg/dL Calcium (8.4-10.2) mg/dL 09/24/20 09/24/20 Range/Units 05:10 05:15 RBC (4.30-5.90) m/uL Hgb (13.0-17.5) gm/dL Hct (39.0-53.0) % Neutrophils # (1.3-7.7) k/uL Lymphocytes # (1.0-4.8) k/uL ABG pH 7.33 L (7.35-7.45) ABG HCO3 20 L (21-25) mmol/L Sodium 133 L (137-145) mmol/L Potassium 5.5 H (3.5-5.1) mmol/L Chloride 97 L (98-107) mmol/L Carbon Dioxide 15 L (22-30) mmol/L BUN 69 H (9-20) mg/dL Creatinine 9.60 H* (0.66-1.25) mg/dL Glucose 103 H (74-99) mg/dL POC Glucose (mg/dL) (75-99) mg/dL Calcium 7.0 L (8.4-10.2) mg/dL Microbiology - Last 24 Hours (Table) 09/18/20 10:38 Blood Culture - Preliminary Blood No Growth after 120 hours 09/18/20 10:45 Blood Culture - Preliminary Blood No Growth after 120 hours Assessment and Plan Plan: V. fib arrest due to ST segment elevated myocardial infarction status post PCI to the circumflex and impella placement Acute systolic congestive heart failure Ischemic cardiomyopathy with ejection fraction less than 20% Cardiogenic shock -Dopamine off 09/23/20, dobutamine, levophed off by 09/22/20 -Maintaine BP -Cardio following -ASA, Plavix, lipitor Generalized Dermatitis, improved -S/p solumedrol X 1 Anoxic encephalopathy -Patient had requested to previous physicians that he wishes to keep going. Silas chapa with Full Code status -Neuro recs -Continue with sedation holidays Acute kidney injury secondary to hypoperfusion and likely ATN, w/ Hyperkalemia -Nephrology recs -Continue with HD -Calcium gluconate 1 g IV -Avoid nephrotoxic agents -Maintain map >65 Acute hypoxic respiratory failure, Pneumonia possible gram negative, completed treatment - off zosyn - pulm recs - pulm hygeine Anemia - Thrombocytopenia - follow CBC - no indication for transfusion at this point in time. Morbid obesity with BMI 37.7 Shock liver, resolved
[2020-09-24] MEDS: CLEVIDIPINE BUTYRATE 25 MG in EMPTY BAG 1 BAG IV SCH (10:39)
--- NOTE | 2020-09-24 10:54 | P.PN ---
Subjective Progress Note Date: 09/24/20 Principal diagnosis: Cardiac arrest. Pulmonary consult dated 09/17/2020. 59-year-old male who apparently had an swr-fq-nrjfbutl cardiac arrest. EMS was called. His provided is danger chest compressions. When EMS arrived, the patient was in ventricular fibrillation arrest. The patient apparently started having chest compressions, received 3 defibrillations, and 2 rounds of epinephrine. The patient was apparently then intubated in the emergency room by the emergency room physician. The patient was taken to the [facility]. The patient had a stent placed in his circumflex coronary artery. Currently, he's on the ventilator. He is on the volume assist control mode, tidal volume 500, rate 24, FiO2 40%, PEEP of 8. Blood gases on the same settings, except 50%, patricia wed PaO2 of 127 pCO2 of 40, and a pH 7.36. The patient remains on a Lasix drip at 10 mg an hour saline at 150 mL an hour, propofol at 40 mcg/kg/m, norepinephrine at 2 mcg/m. We are going to do a daily interruption of sedation to evaluate the patient's neurologic status. In addition, the patient will need an EEG, and neurology consultation. We'll attempt to wean the norepinephrine. White count 11.4, hemoglobin, hematocrit, and platelet count all normal. PT 15.4, INR 1.5, PTT 52, and d-dimer greater than 34.10. Sodium 141, potassium 3.8, chlorides 107, CO2 23, anion gap 11, BUN 25, and creatinine 1.32. AST 347, ALT is 296, and LDH 2314. Troponins were 0.238 and 3.510. Chest x-rays co nsistent with cardiomegaly, and CHF. Progress note dated 09/18/2020. 59-year-old male with a history of cfs-kb-rpxhvtsm cardiac arrest. The patient may have had a prolonged period of resuscitation. The patient was receiving bystander CPR by his . EMS arrived, and continue with chest compressions, defibrillation, and 2 rounds of epinephrine. The patient was intubated in the emergency department by the emergency room physician. The patient was taken to the catheterization laboratory. His stent placement in circumflex coronary artery, and also, an Impella device was inserted. Currently, white count 12.5, hemoglobin 14.3, hematocrit 42.8, and platelet count 168,000. Blood gases show pO2 70, pCO2 35, and a pH is 7.42. His ventilator settings include the volume assist control mode, rate 24, tidal volume 500, FiO2 50%, PEEP of 10. The patient remains on dobutamine at 3 g kilogram per minute, propofol at 70 mcg/kg/m, saline at 125 mL an hour, and heparin via weightbase protocol. Tube feedings has not yet been started. Hopefully, the Impella can be removed today. Sodium 143, potassium 3.1, chlorides 111, CO2 22, anion gap 10, BUN 27, creatinine 1.78. Other than cardiomegaly, the chest x-ray looks pretty good. Progress note dated 09/19/2020. 59-year-old male with a history of urj-ua-esmrngrp cardiac arrest. The patient appears to have a significantly prolonged period of resuscitation, and may not have received proper oxygenation before arriving in the emergency room. The patient initially had bystander CPR by his . EMS arrived, and provided chest compressions. The patient was defibrillated 3 and received 2 rounds of epinephrine. The patient was not intubated until they arrived in the emergency department. The patient was taken to the catheterization laboratory. The patient is stent placed in his circumflex coronary artery. In addition, an Imp lizbeth device was inserted, and that was removed yesterday. Currently, the patient's on the volume assist control mode rate of 24, to be increased up to 28, tidal volume 500, FiO2 50%, PEEP of 15. The FiO2 be dropped down to 40%. Arterial blood gases show pO2 of 109, pCO2 of 52, and a pH is 7.23. Currently, the patient's on saline 75 mL an hour, dopamine at 2.5 mcg/kg/m, dobutamine at 3.5 mcg/kg/m, norepinephrine at 40 mcg/m, propofol at 60 mcg/kg/m, fentanyl at 2 mcg/kg/h, heparin weight based protocol, and Nimbex at 0.5 mcg/kg/m, with tqfcu-uz-itvp monitoring. Nephrology will be consulted for worsening renal function. In addition, we'll start the patient on tube feeds. White count is 13.7, hemoglobin 13.5, hematocrit 38.9, platelet count 159,000. Sodium 141, potassium 4.3, chlorides 109, CO2 21, anion gap 11, BUN and creatinine are 38 and 3.38. Chest x-ray shows bibasilar infiltrates and/or atelectasis, right greater than left. Progress note dated 09/20/2020. 59-year-old male with a history of fhk-yq-tjpnsguy cardiac arrest. The patient name sustained significant anoxic brain injury. He remains on mechanical ventilator. He is on the volume assist control mode, rate 28 tidal volume 500, FiO2 40%, PEEP of 15. Blood gases showed pO2 of 88, pCO2 43, and a pH is 7.24. These blood gases are consistent with a mild metabolic acidosis. The patient remains on saline at 70 mL an hour, dopamine at 2.5 mcg/kg/m, dobutamine at 3.5 mcg/kg/m, norepinephrine 33 mcg/m, Nimbex has been weaned off, propofol 50 mcg/kg/m, fentanyl 1 mcg/kg/h, and tube feedings are currently on hold because of high residuals. The patient will have a PICC line placed. The patient's currently on Zosyn. Microbiology is negative. Echocardiogram shows an ejection fraction of less than 20%. He'll be started on Reglan. After he received Reglan, tube feeds will be resumed. White count is 9.1, hemoglobin 12, hematocrit 34.5, and platelet count 128,000. Sodium 139, potassium 4.2, chlorides 108, CO2 18, anion gap 13, BUN 49, with a creatinine 6.51. Chest x- ray shows left perihilar and right lower lobe infiltrates, likely consistent with pneumonia. Progress note dated 09/21/2020. 59-year-old male, with history of tkf-ul-ciuxedwi cardiac arrest. The patient had bystander CPR provided by his . The patient likely sustained anoxic brain injury. The patient remains on the mechanical ventilator. Ventilator settings include the volume assist control mode, rate 28, tidal volume 500, FiO2 40%, PEEP of 10. Blood gases show pO2 of 83, pCO2 41, and a pH is 7.26. The patient's on D5W with 1 ampule of sodium bicarbonate, at 75 mL an hour. In addition, the patient is on propofol 60 mcg/kg/m, dopamine at 2.5 mcg/kg/m, dobutamine at 3.5 mcg/kg/m, saline at 10 mL an hour, and norepinephrine at 41 mcg/m. The patient's also getting vital high protein at 10 mL an hour. The patient is to receive hemodialysis today. The patient's on Zosyn empirically. White count 7.7, hemoglobin 11.5, hematocrit 33.8, platelet count 127,000. Sodium 137, potassium 4, chlorides 104, CO2 17, anion gap 16, BUN 56, creatinine 8.99. Chest x-rays consistent with bilateral infiltrates and atelectasis, which is worse compared to the prior x-ray. Progress note dated 09/22/2020. 59-year-old male with a history of hvl-ai-tdadocfr cardiac arrest. Apparently, his provided CPR until EMS arrived. We feel the patient may have sustained significant anoxic brain injury, because the patient apparently was not intubated until he arrived in the emergency department. The patient did receive 3 defibrillations at the scene, and also to rounds of epinephrine. Apparently chest compressions were being provided by the Faustino device. Currently, the patient remains on mechanical ventilator. I think daily discussions with the , giving her updates. The patient remains on the volume assist control mode, rate 28, tidal volume 500, FiO2 60%, PEEP of 10. Blood gases show a PaO2 of 84, PaCO2 of 38, and a pH is 7.38. The patient's currently on D5W with 1 amp of sodium bicarbonate at 75 mL an hour, will follow at 30 g, dopamine at 2.5 mcg/kg/m, norepinephrine which is been weaned off, saline at 10 mL an hour, dobutamine at 3.5 mcg/kg/m, and amiodarone at 1 mg/m in addition, the patient's receiving vital high protein at goal, which is 27 mL an hour. The patient had a daily interruption of sedation today, and his mental status was not improved whatsoever. The patient was re-sedated. The was updated. White count 8.3, hemoglobin 11.5, hematocrit 30.4, platelet count 126,000. Sodium 133, potassium 3.6, chlorides 98, CO2 21, anion gap 14, BUN 49, and creatinine 8.20. Ionized calcium was low at 3.5. The patient did receive some calcium gluconate. Chest x-ray shows consolidation in the left lower lobe. Progress note dated 09/23/2020. 59-year-old male with history of emz-yg-gtnrwjoo cardiac arrest. His provided CPR at the scene. EMS arrived. The patient apparently was found to have a ventricular fibrillation arrest. The patient was defibrillated 3 times, and got to rounds of epinephrine. The patient was intubated in the emergency department. He remains on mechanical ventilator. Yesterday, the decided to make the patient comfort measures. Surprisingly, he became more alert. Hence, the comfort measures orders were rescinded. Off of sedation, the patient appears to be having some recovery of neurologic function. Currently, he's on the volume assist control mode, rate 28, tidal volume 500, FiO2 60%, and a PEEP of 10. Blood gases today show a PaO2 of 62, PaCO2 36, and pH is 7.36. Currently, the patient is on propofol at 50 mcg/kg/m, dobutamine at 3.5 mcg/kg/m, saline at 75 mL an hour, amiodarone at 0.5 mg/m, dopamine has been discontinued, and the patient's on vital high protein at 27 mL an hour, which is goal. We will DC the Zosyn. No hemodialysis planned for today. A brain CT showed similar findings. White count 7.4, hemoglobin 11.9, hematocrit 33, and platelet count 144,000. Sodium 134, potassium 4.2, chlorides 98, CO2 18, anion gap 18, BUN 50, creatinine 8.29. Calcium was 6.5. Chest x-ray shows low lung volumes, bibasilar interstitial opacities, small left-sided pleural effusion. Microbiologic studies are all negative. Progress note dated 09/24/2020. 59-year-old male with an zvw-cf-edcwilzo cardiac arrest. His provided CPR at the scene. EMS arrived, and defibrillated the patient 3 times for ventricu lar fibrillation arrest. He also received 2 rounds of epinephrine at that time. The patient was brought into the emergency department, or he was intubated and mechanically ventilated. Currently, the patient is on volume assist control, rate 28, tidal volume 500, FiO2 60%, PEEP of 10. Blood gases show pO2 of 88, pCO2 37, and pH is 7.3.. The patient appeared uncomfortable on the ventilator, and therefore we switched him to the VC plus mode. We made the targeted tidal volume 500, and the inspiratory time 0.9 seconds. The other settings are the same including a rate of 28, FiO2 60%, and PEEP of 10. In addition, the patient can get Cleveprex for blood pressure control if his systolic is greater than 160 or mean greater than 100. He will have hemodialysis today and afterwards, we'll do a daily interruption of sedation. Drips today include saline at KVO, fentanyl at 1 mcg/kg/h, propofol 60 mcg/kg/m, dobutamine at 3.5 mcg/kg/m, amiodarone at 0.5 mg/m and vital high protein at 27 mL an hour, which is goal. Labs include a white count 9.2, hemoglobin 11.3, hematocrit 30.4, and a platelet count that was normal. Sodium 133, potassium 5.5, chlorides 97, CO2 15, anion gap 21, BUN 69, and creatinine 9.60. Chest x-ray is consistent with possible consolidation in the retrocardiac area as well as mild interstitial edema. Objective - Vital Signs Vital signs: Vital Signs Temp 98.3 F 09/24/20 04:00 Pulse 80 09/24/20 10:00 Resp 19 09/24/20 10:00 BP 122/85 09/24/20 10:00 Pulse Ox 98 09/24/20 10:00 Intake & Output 09/23/20 09/24/20 09/24/20 18:59 06:59 18:59 Intake Total 2223.000 2416.273 583.659 Output Total 16 37 5 Balance 2207.000 2379.273 578.659 Weight 137.7 kg Intake: IV 1036 936 153 0.9 Normal Saline 36 36 3 Pressure Bag Calcium Gluconate 1 gm In 100 Sodium Chloride 0.9% 100 ml @ 100 mls/hr IVPB ONCE ONE Rx#:[id number] Sodium Chloride 0.9% 1, 900 900 150 000 ml @ 75 mls/hr IV . [id number] [facility] Rx#:[id number] Intake, IV Titration 800.000 886.273 430.659 Amount Amiodarone 450 mg In 250 245.56 Dextrose 5% in Water 250 ml @ 0.5 MG/MIN 16.667 mls/hr IV .Q15H [facility] Rx#: [id number] DOBUTamine DRIP 500 mg In 250 250 Dextrose/Water 1 250ml. bag @ 2.5 MCG/KG/MIN 10. 206 mls/hr IV .Q24H [facility] Rx#:[id number] fentaNYL (PF) 2,500 mcg 236.273 In Sodium Chloride 0.9% 200 ml @ Per Protocol IV .Q0M [facility] Rx#:[id number] propofoL 1,000 mg In 300.000 400 185.099 Empty Bag 1 bag @ Titrate IV .Q0M [facility] Rx#: [id number] Tube Feeding 297 324 Other 90 270 Output: Urine 16 37 5 Other: Voiding Method Indwelling Catheter Indwelling Catheter Indwelling Catheter # Bowel Movements 1 1 ABP, PAP, CO, CI - Last Documented Arterial Blood Pressure 150/72 - Exam No acute distress, sedated, with possible anoxic brain injury. The patient has an orally placed endotracheal tube. With a sedation holiday, the patient appears to be showing some neurologic improvement. HEENT examination is grossly unremarkable. Neck supple. Full range of motion. No adenopathy thyromegaly or neck vein distention. Cardiovascular examination reveals regular rhythm rate. S1-S2 normal. No S3 or S4. No discernible murmur noted. Heart sounds distant. Heart rate 80 bpm. Lungs reveal scattered rhonchi, and some scattered crackles. Breath sounds are equal bilaterally but diminished throughout. There are no wheezes. Abdomen soft but without bowel sounds. No obvious masses or tenderness. Extremities are intact. No cyanosis clubbing or edema. Skin is without rash or lesion. Neurologic examination reveals the patient, showing some improvement neurologic function. - Labs CBC & Chem 7: 09/24/20 05:10 09/24/20 05:10 Labs: Abnormal Lab Results - Last 24 Hours (Table) 09/23/20 09/24/20 09/24/20 Range/Units 18:13 00:11 05:10 RBC 3.25 L (4.30-5.90) m/uL Hgb 11.3 L (13.0-17.5) gm/dL Hct 30.4 L (39.0-53.0) % Neutrophils # 7.9 H (1.3-7.7) k/uL Lymphocytes # 0.3 L (1.0-4.8) k/uL ABG pH (7.35-7.45) ABG HCO3 (21-25) mmol/L Sodium (137-145) mmol/L Potassium (3.5-5.1) mmol/L Chloride (98-107) mmol/L Carbon Dioxide (22-30) mmol/L BUN (9-20) mg/dL Creatinine (0.66-1.25) mg/dL Glucose (74-99) mg/dL POC Glucose (mg/dL) 121 H 139 H (75-99) mg/dL Calcium (8.4-10.2) mg/dL 09/24/20 09/24/20 Range/Units 05:10 05:15 RBC (4.30-5.90) m/uL Hgb (13.0-17.5) gm/dL Hct (39.0-53.0) % Neutrophils # (1.3-7.7) k/uL Lymphocytes # (1.0-4.8) k/uL ABG pH 7.33 L (7.35-7.45) ABG HCO3 20 L (21-25) mmol/L Sodium 133 L (137-145) mmol/L Potassium 5.5 H (3.5-5.1) mmol/L Chloride 97 L (98-107) mmol/L Carbon Dioxide 15 L (22-30) mmol/L BUN 69 H (9-20) mg/dL Creatinine 9.60 H* (0.66-1.25) mg/dL Glucose 103 H (74-99) mg/dL POC Glucose (mg/dL) (75-99) mg/dL Calcium 7.0 L (8.4-10.2) mg/dL Microbiology - Last 24 Hours (Table) 09/18/20 10:38 Blood Culture - Preliminary Blood No Growth after 120 hours 09/18/20 10:45 Blood Culture - Preliminary Blood No Growth after 120 hours Assessment and Plan Assessment: Status post hkv-ck-aehlksjz cardiopulmonary arrest, secondary to ST segment elevation myocardial infarction, status post cardiopulmonary resuscitation with return of spontaneous circulation, and stent placement in the circumflex coronary artery, and placement of an Impella device. Rule out anoxic brain injury. Severe ischemic cardiomyopathy with an ejection fraction of less than 20%. Acute kidney injury, possibly related to ATN, with initiation of hemodialysis. Congestive hepatopathy and shock liver. History of hypertension. History of hypothyroidism. Possible bilateral pneumonia. Plan: Plan dated 09/17/2020. We will attempt to wean the patient off the norepinephrine. We'll also do a daily interruption of sedation. In addition, we'll try to turn down the IV fluids. Chest x-ray clearly shows congestive heart failure. In addition, the patient will have a neurology consult and EEG. Additional recommendations and suggestions are forthcoming. Prognosis is very guarded. We will continue to follow and make recommendations where appropriate. Plan dated 09/18/2020. Currently, the patient's gas exchange is reasonable. Chest x-ray shows cardiomegaly. The patient remains on dobutamine at 3 mcg/kg/m. The patient has been sedated with propofol at 70 mcg/kg/m. Hopefully, the Impella device will come out today. Once that cell, it'll be easier to wean the patient. Additional recommendations and suggestions are forthcoming. I likely will do a daily interruption of sedation anyway. Neurology has been consulted. EEG was consistent with mild to moderate encephalopathy. Prognosis is guarded. We will continue to follow and make recommendations where appropriate. Plan dated 09/19/2020. Currently, the patient's doing worse. Patient's on numerous strips including dopamine, dobutamine, norepinephrine, propofol, fentanyl, heparin, and Nimbex. The patient has developed acute kidney injury, possibly related to ATN. In addition, the patient's ejection fraction of less than 20%. His prognosis is very poor. We'll have discussions with his at this point. Neurology has seen the patient. Cardiology is also involved in the care of this patient. We will continue to follow make recommendations where appropriate. Prognosis is very guarded. Plan dated 09/20/2020. Currently, the patient's manifesting signs and symptoms of multiorgan system failure. Currently, organ involvement with the heart, lungs, kidneys, and brain. The patient's on multiple drips, including dopamine, the beginning, norepinephrine, propofol, and fentanyl. The patient will get Reglan 10 mg 4 times a day, we will resume tube needs. Patient's currently on Zosyn 3.375 g every 12. Microbiology is negative. A PICC line will be placed. I will call the Luiza, give her an update. Overall prognosis is very poor. If she wants to continue life support, I would probably aspirin early trach and PEG tube placement. Plan dated 09/21/2020. Today, I had a very pelon discussion with the patient's , and daughter. They removed the room on rounds. I gave them when I felt was a very honest assessment of their family member. I think the patient has an extremely poor prognosis given the events that took place on the day of his cardiac arrest. Very concerned about anoxic brain injury. On daily interruption of sedation, although the patient does move all 4 extremities, nothing purposeful is noted. I did tell the that I thought it was too early to give up on the patient. We'll continue to follow make recommendations were appropriate. In addition, the patient has very poor cardiac function, with an ejection fraction of less than 20%. Apparently, cardiology is also pain patient of the family. I think that's appropriate. The patient remains on D5W with sodium bicarbonate, propofol, dopamine, dobutamine, norepinephrine, and tube feeds. Plan dated 09/22/2020. The patient remains on the chemical ventilator. We been updating the daily. Blood gases are reasonable. The patient remains on a number drips including a sodium bicarbonate drip, propofol, dopamine, amiodarone, and dobutamine. Norepinephrine is been weaned off. The patient is on vital high protein at goal. No additional recommendations are made at this time. We will continue to follow and make suggestions where appropriate. The patient did have a daily interruption of sedation, with no improvement in his overall neurologic status. The was in the room, when we did this. Plan dated 09/23/2020. The patient remains on the mechanical ventilator. The patient's is updated on a daily basis. The patient was going to be comfort care yesterday, but because of some improvement neurologic function, the patient's changed her mind. Currently, he is on propofol, dobutamine, amiodarone, and nutrition. Dopamine has been discontinued. We will DC Zosyn. No hemodialysis today. The patient will be placed on a fentanyl drip if we cannot control the patient's respiratory rate and agitation just with propofol. Additional recommendations and suggestions are forthcoming. We will continue to follow and make recommendations where appropriate. Plan dated 09/24/2020. I told the nurse, that they could use Cleveprex, if the systolic blood pressures greater than 160 with a mean arterial pressures greater than 100. The patient will have hemodialysis today and afterwards, we will do a daily interruption of sedation. Because the patient was dyssynchronous with the mechanical ventilator, we went ahead and switch to the VC plus mode, with a targeted tidal volume of 500, and inspiratory time of 0.9 seconds. The patient remains on fentanyl drip, propofol drip, dobutamine drip, amiodarone drip, and is being nourished. Prognosis remains guarded. Additional recommendations and suggestions are forthcoming. We will continue to see the patient and make recommendations where appropriate. Time with Patient: Greater than 30
[2020-09-24] MEDS ORDERED: CALCIUM GLUCONATE 1 GM in SODIUM CHLORIDE 0.9% 100 ML IVPB ONE (11:00)
[2020-09-24 11:55] LABS: Glucose,Whole Blood 98 mg/dL (75-99)
--- NOTE | 2020-09-24 13:33 | P.PN ---
Subjective Patient is receiving dialysis His blood pressure is elevated Heart rates are in the 70s and 80s He still intubated His urine output is minimal He is on low dose dobutamine Impression Acute myocardial infarction Cardiogenic shock Severe ischemic cardio myopathy History renal function, on dialysis at this time Suggest continue ICU care for now Reevaluate brain function Objective - Vital Signs Vital signs: Vital Signs Temp 98.1 F 09/24/20 12:00 Pulse 80 09/24/20 13:00 Resp 23 09/24/20 13:00 BP 125/73 09/24/20 13:00 Pulse Ox 94 L 09/24/20 13:00 Intake & Output 09/23/20 09/24/20 09/24/20 18:59 06:59 18:59 Intake Total 2223.000 2416.273 968.659 Output Total 16 37 10 Balance 2207.000 2379.273 958.659 Weight 137.7 kg 137.7 kg Intake: IV 1036 936 203 0.9 Normal Saline 36 36 3 Pressure Bag Calcium Gluconate 1 gm In 100 Sodium Chloride 0.9% 100 ml @ 100 mls/hr IVPB ONCE ONE Rx#:[id number] Sodium Chloride 0.9% 1, 50 000 ml @ 10 mls/hr IV . Q24H [facility] Rx#:[id number] Sodium Chloride 0.9% 1, 900 900 150 000 ml @ 75 mls/hr IV . [id number] [facility] Rx#:[id number] Intake, IV Titration 800.000 886.273 630.659 Amount Amiodarone 450 mg In 250 245.56 Dextrose 5% in Water 250 ml @ 0.5 MG/MIN 16.667 mls/hr IV .Q15H [facility] Rx#: [id number] Calcium Gluconate 1 gm In 100 Sodium Chloride 0.9% 100 ml @ 100 mls/hr IVPB ONCE ONE Rx#:[id number] DOBUTamine DRIP 500 mg In 250 250 Dextrose/Water 1 250ml. bag @ 2.5 MCG/KG/MIN 10. 206 mls/hr IV .Q24H [facility] Rx#:[id number] fentaNYL (PF) 2,500 mcg 236.273 In Sodium Chloride 0.9% 200 ml @ Per Protocol IV .Q0M [facility] Rx#:[id number] propofoL 1,000 mg In 300.000 400 285.099 Empty Bag 1 bag @ Titrate IV .Q0M [facility] Rx#: [id number] Tube Feeding 297 324 135 Other 90 270 Output: Urine 16 37 10 Other: Voiding Method Indwelling Catheter Indwelling Catheter Indwelling Catheter # Bowel Movements 1 1 ABP, PAP, CO, CI - Last Documented Arterial Blood Pressure 128/81 - Labs CBC & Chem 7: 09/24/20 05:10 09/24/20 05:10 Labs: Abnormal Lab Results - Last 24 Hours (Table) 09/23/20 09/24/20 09/24/20 Range/Units 18:13 00:11 05:10 RBC 3.25 L (4.30-5.90) m/uL Hgb 11.3 L (13.0-17.5) gm/dL Hct 30.4 L (39.0-53.0) % Neutrophils # 7.9 H (1.3-7.7) k/uL Lymphocytes # 0.3 L (1.0-4.8) k/uL ABG pH (7.35-7.45) ABG HCO3 (21-25) mmol/L Sodium (137-145) mmol/L Potassium (3.5-5.1) mmol/L Chloride (98-107) mmol/L Carbon Dioxide (22-30) mmol/L BUN (9-20) mg/dL Creatinine (0.66-1.25) mg/dL Glucose (74-99) mg/dL POC Glucose (mg/dL) 121 H 139 H (75-99) mg/dL Calcium (8.4-10.2) mg/dL 09/24/20 09/24/20 Range/Units 05:10 05:15 RBC (4.30-5.90) m/uL Hgb (13.0-17.5) gm/dL Hct (39.0-53.0) % Neutrophils # (1.3-7.7) k/uL Lymphocytes # (1.0-4.8) k/uL ABG pH 7.33 L (7.35-7.45) ABG HCO3 20 L (21-25) mmol/L Sodium 133 L (137-145) mmol/L Potassium 5.5 H (3.5-5.1) mmol/L Chloride 97 L (98-107) mmol/L Carbon Dioxide 15 L (22-30) mmol/L BUN 69 H (9-20) mg/dL Creatinine 9.60 H* (0.66-1.25) mg/dL Glucose 103 H (74-99) mg/dL POC Glucose (mg/dL) (75-99) mg/dL Calcium 7.0 L (8.4-10.2) mg/dL Microbiology - Last 24 Hours (Table) 09/18/20 10:38 Blood Culture - Final Blood No Growth after 144 hours 09/18/20 10:45 Blood Culture - Final Blood No Growth after 144 hours
[2020-09-24] MEDS ORDERED: AMIODARONE 360 MG in DEXTROSE 5% IN WATER 200 ML IV ONE ×2 (15:00)
[2020-09-24] MEDS ORDERED: DEXTROSE 5% IN WATER 100 ML with AMIODARONE 150 MG IV ONE (15:45)
[2020-09-24 18:22] LABS: Glucose,Whole Blood 95 mg/dL (75-99)
[2020-09-24] MEDS: AMIODARONE 360 MG in DEXTROSE 5% IN WATER 200 ML IV SCH ×2 (21:28)
[2020-09-25] MEDS: IPRATROPIUM-ALBUTEROL 3 ML NEB INHALATION SCH ×7 (00:17→23:40)
[2020-09-25 00:34] LABS: Glucose,Whole Blood 76 mg/dL (75-99)
[2020-09-25] MEDS: AMIODARONE 360 MG in DEXTROSE 5% IN WATER 200 ML IV SCH ×12 (02:50→23:29)
[2020-09-25 04:31] LABS: ABG Base Excess -8.4 mmol/L; ABG HCO3 18 mmol/L (21-25); ABG Oxygen Saturation 98.3 % (94-97); ABG PCO2 35 mmHg (35-45); ABG PH 7.31 (7.35-7.45); ABG PO2 122 mmHg (83-108); ABG TCO2 19 mmol/L (19-24); Allen Test Performed? Yes
[2020-09-25 04:39] LABS: HCT 28.2 % (39.0-53.0); MCV 93.3 fL (80.0-100.0); Mean Platelet Volume 7.5; Platelet Count 244 k/uL (150-450); RBC 3.02 m/uL (4.30-5.90); RDW 14.3 % (11.5-15.5); WBC 9.2 k/uL (3.8-10.6)
[2020-09-25 04:45] LABS: MCH 31.4 pg (25.0-35.0)
[2020-09-25 04:48] LABS: HGB 9.6 gm/dL (13.0-17.5)
[2020-09-25 04:57] LABS: Calcium 7.1 mg/dL (8.4-10.2); Potassium 5.3 mmol/L (3.5-5.1)
[2020-09-25] MEDS: METOCLOPRAMIDE 5 MG/ML 2 ML VIAL IVP SCH ×3 (06:19→18:02)
[2020-09-25] MEDS: LEVOTHYROXINE 50 MCG TAB PO SCH (06:19)
[2020-09-25] MEDS: CALCIUM ACETATE 667 MG TAB PO SCH ×3 (06:19→17:34)
[2020-09-25] MEDS ORDERED: SODIUM BICARB 8.4% 50 ML SYR (1 MEQ/ML) IV STA (07:07)
[2020-09-25] MEDS: HEPARIN SODIUM,PORCINE/PF 5,000 UNIT/0.5 ML SYRINGE SQ SCH ×2 (07:44→20:50)
[2020-09-25] MEDS: CLOPIDOGREL 75 MG TAB PO SCH (07:46)
[2020-09-25] MEDS: ASPIRIN 81 MG PO SCH (07:46)
[2020-09-25] MEDS: PANTOPRAZOLE 40 MG/10 ML VIAL IVP SCH (07:46)
[2020-09-25] MEDS: CHLORHEXIDINE GLUCONATE 15 ML CUP MUCOUS MEM SCH ×2 (07:46→20:50)
--- NOTE | 2020-09-25 08:09 | XR ---
EXAMINATION TYPE: XR chest 1V portable DATE OF EXAM: 09/25/2020 CLINICAL HISTORY: Difficulty breathing progress study. TECHNIQUE: Single AP portable semiupright view of the chest is obtained. COMPARISON: Chest x-ray from one day earlier and older studies. CT September 17, 2020 FINDINGS: Stable endotracheal and orogastric tubes. Stable left-sided PICC line. Stable mild cardiomegaly with small to tiny bilateral pleural effusions and bibasilar opacities. IMPRESSION: Cardiomegaly with small tiny bilateral pleural effusions and bibasilar acute infiltrate a nd/or atelectasis not significantly changed from one day earlier.
--- NOTE | 2020-09-25 09:06 | P.PN ---
Subjective Progress Note Date: 09/25/20 I am taking over neurology service and following-up with this patient (last time seen by me was on 09/17/2020). Please refer to Dr. Carlson and Dr. Randle's notes for further neurolgical impression and plan. Per Dr. Randle's last note on 09/23/2020, "improvement in neurological status". He is currently on IV propofol 60mcg/kg/min and fentanyl 1mcg/kg/min. Per his nurse yesterday the patient went into A-fib with RVR and is placed on amiodarone Objective - Vital Signs Vital signs: Vital Signs Temp 98.8 F 09/25/20 04:00 Pulse 80 09/25/20 07:26 Resp 32 H 09/25/20 07:00 BP 104/60 09/25/20 07:00 Pulse Ox 93 L 09/25/20 07:00 Intake & Output 09/24/20 09/25/20 09/25/20 18:59 06:59 18:59 Intake Total 5603.891 8288.301 203.332 Output Total 10 7 0 Balance 3336.546 7443.301 203.332 Weight 137.7 kg 138.9 kg Intake: IV 253 143 13 0.9 Normal Saline 3 33 3 Pressure Bag Sodium Chloride 0.9% 1, 100 110 10 000 ml @ 10 mls/hr IV . Q24H [facility] Rx#:[id number] Sodium Chloride 0.9% 1, 150 000 ml @ 75 mls/hr IV . [id number] [facility] Rx#:[id number] Intake, IV Titration 1875.968 9168.301 163.332 Amount Amiodarone 360 mg In 178.887 163.332 Dextrose 5% in Water 200 ml @ 1 MG/MIN 33.333 mls/ hr IV .Q6H [facility] Rx#: [id number] Amiodarone 450 mg In 245.56 Dextrose 5% in Water 250 ml @ 0.5 MG/MIN 16.667 mls/hr IV .Q15H [facility] Rx#: [id number] Calcium Gluconate 1 gm In 100 Sodium Chloride 0.9% 100 ml @ 100 mls/hr IVPB ONCE ONE Rx#:[id number] Clevidipine Butyrate 25 8.267 mg In Empty Bag 1 bag @ 1 MG/HR 2 mls/hr IV .Q24H [facility] Rx#:[id number] DOBUTamine DRIP 500 mg In 96.444 Dextrose/Water 1 250ml. bag @ 2.5 MCG/KG/MIN 10. 206 mls/hr IV .Q24H [facility] Rx#:[id number] fentaNYL (PF) 2,500 mcg 398.414 In Sodium Chloride 0.9% 200 ml @ Per Protocol IV .Q0M [facility] Rx#:[id number] propofoL 1,000 mg In 570.994 500.000 Empty Bag 1 bag @ Titrate IV .Q0M [facility] Rx#: [id number] Tube Feeding 216 297 27 Hemodialysis 0 Other 90 Output: Urine 10 7 0 Other: Voiding Method Indwelling Catheter Indwelling Catheter ABP, PAP, CO, CI - Last Documented Arterial Blood Pressure 102/57 - Exam GENERAL: The patient is lying in bed, obese and does not seem in acute distress. LUNG: Clear to auscultation bilaterally no wheezing noted throughout. Not labored breathing. He is intubated and on ventilator. NEUROLOGICAL: Is limited since is on IV propofol 60mcg/kg/min and IV fentanyl 1mcg/kg/hr and was held for 5 minutes prior to examination. . Higher mental function: The patient is comatose GCS 3 (E1, VT1, M1). Not waking up or verbalizing or following commands. Cranial nerves: I had to manually open the eyes. The primary gaze is midline. The pupils are round, equal and reactive to light. The pupils are around 3-4mm bilaterally. +ve corneal reflex bilaterally. No facial weakness noted. Positive gag reflex. Is breathing over the vent. Motor: Gait is deferred because of condition. The strength is hard to assess but not withdrawing to any of extremities to painful stimuli. Normal tone and bulk. No spontaneous movement. Cerebellum: Could not assess. Sensation: He frowns to painful stimuli throughout. Reflexes (right/left): 1+ throughout. Plantars are downgoing bilaterally. - Labs CBC & Chem 7: 09/25/20 04:25 09/25/20 04:25 Labs: Abnormal Lab Results - Last 24 Hours (Table) 09/25/20 09/25/20 09/25/20 Range/Units 04:25 04:25 04:25 RBC 3.02 L (4.30-5.90) m/uL Hgb 9.6 L D (13.0-17.5) gm/dL Hct 28.2 L (39.0-53.0) % ABG pH 7.31 L (7.35-7.45) ABG pO2 122 H (83-108) mmHg ABG HCO3 18 L (21-25) mmol/L ABG O2 Saturation 98.3 H (94-97) % Sodium 129 L (137-145) mmol/L Potassium 5.3 H (3.5-5.1) mmol/L Chloride 95 L (98-107) mmol/L Carbon Dioxide 14 L (22-30) mmol/L BUN 78 H (9-20) mg/dL Creatinine 9.67 H* (0.66-1.25) mg/dL Calcium 7.1 L (8.4-10.2) mg/dL Microbiology - Last 24 Hours (Table) 09/18/20 10:38 Blood Culture - Final Blood No Growth after 144 hours 09/18/20 10:45 Blood Culture - Final Blood No Growth after 144 hours Assessment and Plan Assessment: * Hypoxic/anoxic encephalopathy status post cardiac arrest. Also component of encephalopathy due to medication effect (propofol and fentanyl) and metabolic (Acute kidney injury, electrolyte imbalance (hyponatremia, hypocalcemia) * A-fib with RVR * Electrolyte imbalance (hyponatremia 129, hypocalcemia 7.1 and hyperkalemia) * Status post out of the Hospital cardio pulmonary arrest, secondary to ST segment elevation myocardial infarction status post cardiopulmonary resuscitation with return responses circulation and stent placement in the circumflex coronary artery * Cardiogenic shock * Severe ischemic cardiomyopathy (with EF <20%) * Acute kidney injury with initiation of hemodialysis * History of hypertension * History of hypertelorism Plan: We'll defer the electrolytes and imbalance correction to the nephrology team as well as ICU/primary team. Cardiology is on board. Nephrology is on board Cardiology is on board Will defer the rest of the medical management to the ICU team and primary team. The condition is very guarded. We'll reexamine the patient later today once he's been off the sedation for prolonged periods so we can get a good examination. The plan is discussed with the ICU attending and nurse. Fadi Johnson MD Neuro-Hospitalist Time with Patient: Less than 30
--- NOTE | 2020-09-25 09:13 | P.PN ---
Subjective Patient is seen in follow-up for acute kidney injury. Off Levophed and dopamine. On amiodarone drip for A. fib. Oliguric. Started on hemodialysis September 21. Receiving tube feeding. Dialysis catheter being exchanged as it wasn't working well yesterday. Vital signs: Stable. General: The patient appeared well nourished and normally developed. HEENT: Intubated. LUNGS: Breath sounds decreased. HEART: Irregular rate and rhythm. ABDOMEN: Soft, no distention. EXTREMITITES: 1+ edema. Objective - Vital Signs Vital signs: Vital Signs Temp 98.3 F 09/25/20 08:00 Pulse 89 09/25/20 09:00 Resp 26 H 09/25/20 09:00 BP 100/52 09/25/20 09:00 Pulse Ox 91 L 09/25/20 09:00 Intake & Output 09/24/20 09/25/20 09/25/20 18:59 06:59 18:59 Intake Total 2717.139 6533.301 229.332 Output Total 10 7 5 Balance 7206.510 1796.301 224.332 Weight 137.7 kg 138.9 kg Intake: IV 253 143 39 0.9 Normal Saline 3 33 9 Pressure Bag Sodium Chloride 0.9% 1, 100 110 30 000 ml @ 10 mls/hr IV . Q24H [facility] Rx#:[id number] Sodium Chloride 0.9% 1, 150 000 ml @ 75 mls/hr IV . [id number] [facility] Rx#:[id number] Intake, IV Titration 2734.767 2434.301 163.332 Amount Amiodarone 360 mg In 178.887 163.332 Dextrose 5% in Water 200 ml @ 1 MG/MIN 33.333 mls/ hr IV .Q6H [facility] Rx#: [id number] Amiodarone 450 mg In 245.56 Dextrose 5% in Water 250 ml @ 0.5 MG/MIN 16.667 mls/hr IV .Q15H [facility] Rx#: [id number] Calcium Gluconate 1 gm In 100 Sodium Chloride 0.9% 100 ml @ 100 mls/hr IVPB ONCE ONE Rx#:[id number] Clevidipine Butyrate 25 8.267 mg In Empty Bag 1 bag @ 1 MG/HR 2 mls/hr IV .Q24H [facility] Rx#:[id number] DOBUTamine DRIP 500 mg In 96.444 Dextrose/Water 1 250ml. bag @ 2.5 MCG/KG/MIN 10. 206 mls/hr IV .Q24H [facility] Rx#:[id number] fentaNYL (PF) 2,500 mcg 398.414 In Sodium Chloride 0.9% 200 ml @ Per Protocol IV .Q0M [facility] Rx#:[id number] propofoL 1,000 mg In 570.994 500.000 Empty Bag 1 bag @ Titrate IV .Q0M [facility] Rx#: [id number] Tube Feeding 216 297 27 Hemodialysis 0 Other 90 Output: Urine 10 7 5 Other: Voiding Method Indwelling Catheter Indwelling Catheter Indwelling Catheter ABP, PAP, CO, CI - Last Documented Arterial Blood Pressure 81/77 - Labs CBC & Chem 7: 09/25/20 04:25 09/25/20 04:25 Labs: Abnormal Lab Results - Last 24 Hours (Table) 09/25/20 09/25/20 09/25/20 Range/Units 04:25 04:25 04:25 RBC 3.02 L (4.30-5.90) m/uL Hgb 9.6 L D (13.0-17.5) gm/dL Hct 28.2 L (39.0-53.0) % ABG pH 7.31 L (7.35-7.45) ABG pO2 122 H (83-108) mmHg ABG HCO3 18 L (21-25) mmol/L ABG O2 Saturation 98.3 H (94-97) % Sodium 129 L (137-145) mmol/L Potassium 5.3 H (3.5-5.1) mmol/L Chloride 95 L (98-107) mmol/L Carbon Dioxide 14 L (22-30) mmol/L BUN 78 H (9-20) mg/dL Creatinine 9.67 H* (0.66-1.25) mg/dL Calcium 7.1 L (8.4-10.2) mg/dL Microbiology - Last 24 Hours (Table) 09/18/20 10:38 Blood Culture - Final Blood No Growth after 144 hours 09/18/20 10:45 Blood Culture - Final Blood No Growth after 144 hours Assessment and Plan Plan: Assessment: 1. Acute kidney injury secondary to ATN secondary to cardiac arrest and cardiogenic shock. Oliguric. Started on hemodialysis September 21. 2. Status post cardiac arrest. 3. Coronary artery disease status post catheterization with stent placement to the circumflex on 09/17/2020. 4. Cardiogenic shock status post dopamine and dobutamine. Ejection fraction 20-25%. 5. Metabolic acidosis secondary to acute kidney injury. Status post bicarb drip. 6. Acute hypoxic respiratory failure. 7. Hypocalcemia secondary to acute kidney injury. Replace. Better. 8. Hyperphosphatemia secondary to acute kidney injury maintained on PhosLo. 9. A. fib with RVR maintained on amiodarone drip. 10. Hyponatremia secondary to acute kidney injury. Plan: Remains off IV fluids. Maintain tube feeds. IV bicarb given this morning. No response in urine output with IV Lasix. Plan for hemodialysis today and again tomorrow.
[2020-09-25] MEDS ORDERED: AMIODARONE 450 MG in DEXTROSE 5% IN WATER 250 ML IV SCH ×2 (09:30)
--- NOTE | 2020-09-25 10:44 | P.PN ---
Subjective Progress Note Date: 09/25/20 59-year-old male patient, post cardiac arrest, V. fib arrest, who is admitted intensive care unit since 09/17/2020 and the patient is being seen in follow-up today on 09/25/2020. The patient is still intubated on a mechanical ventilator. The patient was a V. fib arrest, received CPR on the scene, defibrillated, received epinephrine and was brought into us in his been in the intensive care unit setting. He turned out to be a case of a ST segment elevation myocardial infarction. He received immediate cardiac catheterization and stenting of the circumflex artery. The patient this morning is sedated with propofol running at 60 mcg/kg per minute. Is also on fentanyl 1 mcg/mg/h. He is off pressors. His cardiac rhythm is sinus with a left bundle branch block pattern. Over the past 24 hours, the patient was given dobutamine to augment his cardiac output. He went into atrial fibrillation with RVR. He was given a bolus of amiodarone and he is currently back into normal sinus rhythm. In terms of his vent support, the patient remains on mechanical ventilator. At this point in time, the pa tient is an assist-control mode at the rate of 28 and a tidal volume of 500 and FiO2 of 50% with a PEEP of 10. The blood gases from today showing a pH of 7.31 with a pCO2 of 35 and pO2 of 122. He is in renal failure. He is receiving dialysis periodically. He received dialysis on 09/20/2020 and 09/21/2020. Dialysis was attempted yesterday, unable to complete as the patient's catheter was kinked and Changes will be done today surgery. He will probably end up having another session of hemodialysis today. When the process of getting the patient sedation holiday in his neurologic function will be reevaluated. CAT scan of the brain another EEG is in progress for today. He is on Levemir in [facility] for blood sugar control. He is on vital high protein at the rate of 27 mL an hour. No abdominal distention. No nausea or vomiting. No fever or chills. Chest x-ray is showing cardiomegaly with small bilateral pleural effusions on some atelectatic changes in lung bases bilaterally. Orogastric tube is in a good location. He does have small pleural effusions. There is stable cardiomegaly. In terms of his blood work, the white cell count is at 9.2 with a hemoglobin of 9.6. Sodium is at 129, potassium at 5.3, serum bicarbonate is 14 with a BUN of 78 and a creatinine of 9.67. Objective - Vital Signs Vital signs: Vital Signs Temp 98.3 F 09/25/20 08:00 Pulse 113 H 09/25/20 10:00 Resp 21 09/25/20 10:00 BP 105/64 09/25/20 10:00 Pulse Ox 90 L 09/25/20 10:00 Intake & Output 09/24/20 09/25/20 09/25/20 18:59 06:59 18:59 Intake Total 3273.359 1560.301 434.665 Output Total 10 7 10 Balance 6451.286 5074.301 424.665 Weight 137.7 kg 138.9 kg Intake: IV 253 143 52 0.9 Normal Saline 3 33 12 Pressure Bag Sodium Chloride 0.9% 1, 100 110 40 000 ml @ 10 mls/hr IV . Q24H [facility] Rx#:[id number] Sodium Chloride 0.9% 1, 150 000 ml @ 75 mls/hr IV . [id number] [facility] Rx#:[id number] Intake, IV Titration 8349.843 7399.301 301.665 Amount Amiodarone 360 mg In 178.887 163.332 Dextrose 5% in Water 200 ml @ 1 MG/MIN 33.333 mls/ hr IV .Q6H [facility] Rx#: [id number] Amiodarone 450 mg In 245.56 Dextrose 5% in Water 250 ml @ 0.5 MG/MIN 16.667 mls/hr IV .Q15H [facility] Rx#: [id number] Calcium Gluconate 1 gm In 100 Sodium Chloride 0.9% 100 ml @ 100 mls/hr IVPB ONCE ONE Rx#:[id number] Clevidipine Butyrate 25 8.267 mg In Empty Bag 1 bag @ 1 MG/HR 2 mls/hr IV .Q24H [facility] Rx#:[id number] DOBUTamine DRIP 500 mg In 96.444 Dextrose/Water 1 250ml. bag @ 2.5 MCG/KG/MIN 10. 206 mls/hr IV .Q24H [facility] Rx#:[id number] fentaNYL (PF) 2,500 mcg 398.414 54.16 In Sodium Chloride 0.9% 200 ml @ Per Protocol IV .Q0M [facility] Rx#:[id number] propofoL 1,000 mg In 570.994 500.000 84.173 Empty Bag 1 bag @ Titrate IV .Q0M [facility] Rx#: [id number] Tube Feeding 216 297 81 Hemodialysis 0 Other 90 Output: Urine 10 7 10 Other: Voiding Method Indwelling Catheter Indwelling Catheter Indwelling Catheter ABP, PAP, CO, CI - Last Documented Arterial Blood Pressure 75/73 - Exam synchronous a mechanical ventilator. Orogastric and orotracheal tube are both in place. Unresponsive, currently on a combination of propofol and fentanyl. Calm and comfortable. Unresponsive. Head exam was generally normal. There was no scleral icterus or corneal arcus. Mucous membranes were moist. Neck was supple and without jugular venous distension, thyromegaly, or carotid bruits. Carotids were easily palpable bilaterally. There was no adenopathy. Lungs were clear to auscultation and percussion, and with normal diaphragmatic excursion. No wheezes or rales were noted. Cardiac exam revealed the PMI to be normally situated and sized. The rhythm was regular and no extrasystoles were noted during several minutes of auscultation. The first and second heart sounds were normal and physiologic splitting of the second heart sound was noted. There were no murmurs, rubs, clicks, or gallops. Abdominal exam revealed normal bowel sounds. The abdomen was soft, non-tender, and without masses, organomegaly, or appreciable enlargement of the abdominal aorta. Examination of the extremities revealed easily palpable radial, femoral and pedal pulses. There was no cyanosis, clubbing or edema.The patient has a t emporary dialysis catheter in the left femoral vein neurologically, the examination is limited as the patient is currently on that the propofol. The sedation will be discontinued and the patient's condition will be reevaluated. No response to any painful stimulation. Reflexes are +1 and symmetrical and plantars are downgoing. Motor function cannot be assessed. Pupils are reactive to light. There is positive cough and gag reflex at this point in time. - Labs CBC & Chem 7: 09/25/20 04:25 09/25/20 04:25 Labs: Abnormal Lab Results - Last 24 Hours (Table) 0709/25/20 09/25/20 Range/Units 04:25 04:25 04:25 RBC 3.02 L (4.30-5.90) m/uL Hgb 9.6 L D (13.0-17.5) gm/dL Hct 28.2 L (39.0-53.0) % ABG pH 7.31 L (7.35-7.45) ABG pO2 122 H (83-108) mmHg ABG HCO3 18 L (21-25) mmol/L ABG O2 Saturation 98.3 H (94-97) % Sodium 129 L (137-145) mmol/L Potassium 5.3 H (3.5-5.1) mmol/L Chloride 95 L (98-107) mmol/L Carbon Dioxide 14 L (22-30) mmol/L BUN 78 H (9-20) mg/dL Creatinine 9.67 H* (0.66-1.25) mg/dL Calcium 7.1 L (8.4-10.2) mg/dL Microbiology - Last 24 Hours (Table) 09/18/20 10:38 Blood Culture - Final Blood No Growth after 144 hours 09/18/20 10:45 Blood Culture - Final Blood No Growth after 144 hours Assessment and Plan Plan: 1 V. fib cardiac arrest,, secondary to ST segment elevation myocardial infarction, status post cardiac catheterization and stenting of the circumflex coronary artery, status post basement removal of a Impala device. 2 acute hypoxic respiratory failure secondary to above, remains intubated on a mechanical ventilator 3 anoxic encephalopathy post cardiac arrest, currently on propofol and the patient's underlying mental status is being evaluated 4 severe ischemic cardiomyopathy with an ejection fraction of less than 20% 5 acute kidney injury secondary to cardiac arrest induced ATN. Currently on hemodialysis, the patient remains oliguric and the urine output is minimal at this point in time 6 shock liver, improving 7 paroxysmal atrial fibrillation, current rhythm is sinus 8 left bundle branch block pattern, current rhythm is sinus 9 hypothyroidism 10 history of hypertension 11 anion gap metabolic acidosis secondary to above Plan Continue ventilator support Drop the FiO2 down to 40% Drop to keep down to 8 Stop sedation including propofol and fentanyl and assess the patient's mental status CAT scan of the brain and EEG to evaluate his neuro status Neurologist to follow-up regarding his anoxic encephalopathy dialysis catheter exchange will be done today and the patient will hopefully proceed with another session of hemodialysis today Continue IV amiodarone for next 24 hours Continue aspirin and Plavix Continue supportive care including enteral feeding for nutritional support IV fluids are currently at KVO IV bicarbonate was given today by nephrology Monitor sodium level We'll continue to follow make further recommendations based on his progress. Critically care evaluation that was on a more than 30 minutes Time with Patient: Greater than 30
[2020-09-25] MEDS: CLEVIDIPINE BUTYRATE 25 MG in EMPTY BAG 1 BAG IV SCH (11:42)
[2020-09-25] MEDS: fentaNYL (PF) 2,500 MCG in SODIUM CHLORIDE 0.9% 200 ML IV SCH (11:52)
[2020-09-25 12:12] LABS: Glucose,Whole Blood 82 mg/dL (75-99)
--- NOTE | 2020-09-25 12:15 | PN ---
PROGRESS NOTE This is a 59-year-old gentleman that is admitted to hospital with acute myocardial infarction underwent cardiac catheterization and angioplasty of circumflex coronary artery, has ischemic cardiomyopathy with severe LV dysfunction, has renal failure and is on hemodialysis. The patient has had episodes of atrial fibrillation. Yesterday, he was on IV dobutamine and was started on amiodarone. Amiodarone dose was increased to 1 mg/minute. This morning, he was initially in sinus rhythm, but by the time I finished my rounds, went back into atrial fibrillation. We will continue the amiodarone drip. The patient is intubated on vent and sedated. Plans are in progress for sedation holiday and attempts at weaning. PHYSICAL EXAMINATION: Heart rate is 89 beats per minute. Blood pressure is 100/50, respiratory rate is 20. Chest exam reveals diminished air entry at the bases. Heart exam reveals first and second heart sounds and a systolic murmur at the apex. Abdomen: Soft. Exam of extremities did not reveal any edema. Peripheral pulses are palpable. LABS: Labs show a hemoglobin of 9.6, platelet count is 244, creatinine is 9.6 and BUN is 78. ASSESSMENT: 1. Acute coronary syndrome, status post catheterization and angioplasty, acute renal failure, vent requiring respiratory failure. 2. Paroxysmal atrial fibrillation with rapid ventricular rate. PLAN: We will continue with the IV amiodarone. Prognosis is guarded. Has severe LV systolic dysfunction. BERENICE / LEVN: [id number] /
[2020-09-25] MEDS: SODIUM CHLORIDE 0.9% 1,000 ML IV SCH (14:27)
--- NOTE | 2020-09-25 14:46 | P.PN ---
Subjective Progress Note Date: 09/25/20 Patient was sedated and intubated this morning when I saw him. He is being going on and off from atrial fibrillation rhythm on the monitor and that this morning he went back into A. fib rate controlled. He is currently getting hemodialysis. Objective - Vital Signs Vital signs: Vital Signs Temp 98.1 F 09/25/20 12:57 Pulse 77 09/25/20 14:00 Resp 28 H 09/25/20 14:00 BP 84/60 09/25/20 14:00 Pulse Ox 96 09/25/20 14:00 Intake & Output 09/24/20 09/25/20 09/25/20 18:59 06:59 18:59 Intake Total 8714.834 7883.301 486.665 Output Total 10 7 10 Balance 2933.756 5151.301 476.665 Weight 137.7 kg 138.9 kg Intake: IV 253 143 104 0.9 Normal Saline 3 33 24 Pressure Bag Sodium Chloride 0.9% 1, 100 110 80 000 ml @ 10 mls/hr IV . Q24H [facility] Rx#:[id number] Sodium Chloride 0.9% 1, 150 000 ml @ 75 mls/hr IV . [id number] [facility] Rx#:[id number] Intake, IV Titration 5751.491 1310.301 301.665 Amount Amiodarone 360 mg In 178.887 163.332 Dextrose 5% in Water 200 ml @ 1 MG/MIN 33.333 mls/ hr IV .Q6H [facility] Rx#: [id number] Amiodarone 450 mg In 245.56 Dextrose 5% in Water 250 ml @ 0.5 MG/MIN 16.667 mls/hr IV .Q15H [facility] Rx#: [id number] Calcium Gluconate 1 gm In 100 Sodium Chloride 0.9% 100 ml @ 100 mls/hr IVPB ONCE ONE Rx#:[id number] Clevidipine Butyrate 25 8.267 mg In Empty Bag 1 bag @ 1 MG/HR 2 mls/hr IV .Q24H [facility] Rx#:[id number] DOBUTamine DRIP 500 mg In 96.444 Dextrose/Water 1 250ml. bag @ 2.5 MCG/KG/MIN 10. 206 mls/hr IV .Q24H [facility] Rx#:[id number] fentaNYL (PF) 2,500 mcg 398.414 54.16 In Sodium Chloride 0.9% 200 ml @ Per Protocol IV .Q0M [facility] Rx#:[id number] propofoL 1,000 mg In 570.994 500.000 84.173 Empty Bag 1 bag @ Titrate IV .Q0M [facility] Rx#: [id number] Tube Feeding 216 297 81 Hemodialysis 0 Other 90 Output: Urine 10 7 10 Other: Voiding Method Indwelling Catheter Indwelling Catheter Indwelling Catheter ABP, PAP, CO, CI - Last Documented Arterial Blood Pressure 114/70 - Exam General: The patient is sedated and intubated Eye: there is normal conjunctiva bilaterally. Neck: The neck is supple, there is no JVD. Cardiovascular: Normal S1-S2, no S3-S4, no murmurs. Respiratory: Lungs with mechanical ventilator sounds Gastrointestinal: Abdomen is soft, nontender Musculoskeletal: There is +1 pedal edema. Skin: Skin is warm and dry - Labs CBC & Chem 7: 09/25/20 04:25 09/25/20 04:25 Labs: Abnormal Lab Results - Last 24 Hours (Table) 09/25/20 09/25/20 09/25/20 Range/Units 04:25 04:25 04:25 RBC 3.02 L (4.30-5.90) m/uL Hgb 9.6 L D (13.0-17.5) gm/dL Hct 28.2 L (39.0-53.0) % ABG pH 7.31 L (7.35-7.45) ABG pO2 122 H (83-108) mmHg ABG HCO3 18 L (21-25) mmol/L ABG O2 Saturation 98.3 H (94-97) % Sodium 129 L (137-145) mmol/L Potassium 5.3 H (3.5-5.1) mmol/L Chloride 95 L (98-107) mmol/L Carbon Dioxide 14 L (22-30) mmol/L BUN 78 H (9-20) mg/dL Creatinine 9.67 H* (0.66-1.25) mg/dL Calcium 7.1 L (8.4-10.2) mg/dL Microbiology - Last 24 Hours (Table) 09/18/20 10:38 Blood Culture - Final Blood No Growth after 144 hours 09/18/20 10:45 Blood Culture - Final Blood No Growth after 144 hours Assessment and Plan Assessment: Patient is a 59-year-old male with a history of hypertension, hypothyroidism, and obesity who presented to the ER after cardiac arrest in the field. He had multiple rounds of CPR, Epi, and Defib prior to obtaining ROSC. It appears that his down time in the field was approximately 30 minutes on review of the EMS run sheet. He was intubated and sedated he underwent a left heart cath with stent to the LAD and impella placement. Echocardiogram demonstrated an EF of less than 20% with global hypokenesis. He was determined to be in cardiogenic shock requiring dopamine, dobutamine, and levophed. He has required a Nimbex drip to maintain adequate ventilation until 09/20/20. He demonstrated shock liver on arrival. He has also had progressive anuric renal failure, nephrology was consulted HD was initiated on 09/21/20. He had one abnormal EEG with worsening of EEG on 09/20/20. We have been unable to wean sedation due to agitation and there are concerns for severe anoxic encephalopathy. His CXR was worsening and procal citonin was elevated and he was started on zosyn with concerns for possible underlying PNA. He had not been awake or following commands with sedation holidays. Rush list of his medical problems at this during this hospitalization V. fib arrest due to ST segment elevated myocardial infarction status post PCI to the circumflex and impella placement Acute systolic congestive heart failure Ischemic cardiomyopathy with ejection fraction less than 20% Cardiogenic shock - dopamine off 09/23/20, dobutamine, levophed off by 09/22/20 - cardio recs - ASA, Plavix, lipitor Paroxysmal atrial fibrillation requiring IV amiodarone. Cardiology following closely Anoxic encephalopathy - neuro recs - continue with sedation holidays Acute kidney injury secondary to hypoperfusion and likely ATN requiring hemodialysis - nephrology recs - Avoid nephrotoxic agents - maintain map >65 Acute hypoxic respiratory failure, Pneumonia possible gram negative, completed treatment - off zosyn - pulm recs - pulm hygeine Anemia - Thrombocytopenia - follow CBC - no indication for transfusion at this point in time. Generalized Dermatitis, improved with IV steroids Morbid obesity with BMI 37.7 Shock liver, resolved Poor overall prognosis. DVT prophylaxis: heparin Discussed with: nursing A total of 35 minutes was spent on the care of this complex patient more than 50% of the time was spent in counseling and care coordination.
--- NOTE | 2020-09-25 14:51 | PCN ---
PROCEDURE NOTE PREOPERATIVE DIAGNOSE: Acute on chronic renal failure with malfunctioning dialysis catheter. PROCEDURE: Placement of a 30 cm dialysis catheter via left femoral approach. PROCEDURE IN DETAIL: This patient was seen in the intensive care unit. Left groin was prepped and drapes applied in sterile manner. This patient had a dialysis catheter in the left groin. Guidewire was passed and old catheter was removed. Then we placed a 30 cm dialysis catheter on top of the guidewire and secured with 3-0 nylon and flushed with heparin saline and hep-locked. Dressing applied. Patient tolerated the procedure well. MMODL / IJN: [id number] /
[2020-09-25 18:13] LABS: Glucose,Whole Blood 95 mg/dL (75-99)
[2020-09-26 00:04] LABS: Glucose,Whole Blood 95 mg/dL (75-99)
[2020-09-26] MEDS: METOCLOPRAMIDE 5 MG/ML 2 ML VIAL IVP SCH ×5 (00:34→19:20)
[2020-09-26] MEDS: IPRATROPIUM-ALBUTEROL 3 ML NEB INHALATION SCH ×6 (03:53→23:35)
[2020-09-26] MEDS ORDERED: NOREPINEPHRINE 8 MG in SODIUM CHLORIDE 0.9% 250 ML IV SCH (04:00)
[2020-09-26 04:24] LABS: ABG Base Excess -7.4 mmol/L; ABG HCO3 19 mmol/L (21-25); ABG Oxygen Saturation 92.6 % (94-97); ABG PCO2 41 mmHg (35-45); ABG PH 7.29 (7.35-7.45); ABG PO2 75 mmHg (83-108); ABG TCO2 21 mmol/L (19-24); Allen Test Performed? Yes
[2020-09-26 04:31] LABS: HCT 27.9 % (39.0-53.0); HGB 10.6 gm/dL (13.0-17.5); MCH 35.6 pg (25.0-35.0); MCV 93.5 fL (80.0-100.0); Mean Platelet Volume 7.5; Platelet Count 266 k/uL (150-450); RBC 2.99 m/uL (4.30-5.90); RDW 13.8 % (11.5-15.5)
[2020-09-26 04:42] LABS: Calcium 7.3 mg/dL (8.4-10.2); Magnesium 2.3 mg/dL (1.6-2.3); Potassium 5.3 mmol/L (3.5-5.1)
[2020-09-26 04:49] LABS: Phosphorus 12.3 mg/dL (2.5-4.5)
[2020-09-26] MEDS: AMIODARONE 360 MG in DEXTROSE 5% IN WATER 200 ML IV SCH ×8 (05:11→23:12)
[2020-09-26] MEDS: fentaNYL (PF) 2,500 MCG in SODIUM CHLORIDE 0.9% 200 ML IV SCH (05:56)
[2020-09-26] MEDS: LEVOTHYROXINE 50 MCG TAB PO SCH (06:23)
[2020-09-26] MEDS: CALCIUM ACETATE 667 MG TAB PO SCH ×3 (06:23→17:49)
[2020-09-26] MEDS ORDERED: SODIUM BICARB 8.4% 50 ML SYR (1 MEQ/ML) IV STA ×2 (07:05→20:18)
--- NOTE | 2020-09-26 07:38 | XR ---
EXAMINATION TYPE: XR chest 1V portable DATE OF EXAM: 09/26/2020 COMPARISON: 09/25/2020 HISTORY: SOB, Follow Up FINDINGS: Indwelling tubes and catheters are unchanged. Pulmonary venous congestion with scattered infiltrates and interstitial edema. Stable appearance of the cardio-mediastinal structures at this time. Pleural effusion unchanged. IMPRESSION: 1. Stable portable chest. Clinical correlation and follow up until resolution is recommended.
--- NOTE | 2020-09-26 09:08 | P.PN ---
Subjective Patient is seen in follow-up for acute kidney injury. Off Levophed and dopamine. On amiodarone drip for A. fib. Oliguric. Started on hemodialysis September 21. Receiving tube feeding. Vital signs: Stable. General: The patient appeared well nourished and normally developed. HEENT: Intubated. LUNGS: Breath sounds decreased. HEART: Irregular rate and rhythm. ABDOMEN: Soft, no distention. EXTREMITITES: 1+ edema. Objective - Vital Signs Vital signs: Vital Signs Temp 99.3 F 09/26/20 08:00 Pulse 82 09/26/20 08:00 Resp 17 09/26/20 08:00 BP 108/63 09/26/20 08:00 Pulse Ox 96 09/26/20 08:00 Intake & Output 09/25/20 09/26/20 09/26/20 18:59 06:59 18:59 Intake Total 7501.366 9834.040 200.007 Output Total 610 5 0 Balance 922.565 2759.040 200.007 Weight 142.8 kg Intake: IV 156 156 26 0.9 Normal Saline 36 36 6 Pressure Bag Sodium Chloride 0.9% 1, 120 120 20 000 ml @ 10 mls/hr IV . Q24H [facility] Rx#:[id number] Intake, IV Titration 774.179 957.040 90.007 Amount Amiodarone 360 mg In 163.332 Dextrose 5% in Water 200 ml @ 1 MG/MIN 33.333 mls/ hr IV .Q6H [facility] Rx#: [id number] Amiodarone 360 mg In 200 376.663 Dextrose 5% in Water 200 ml @ 1 MG/MIN 33.333 mls/ hr IV .Q6H [facility] Rx#: [id number] Norepinephrine 8 mg In 13.260 Sodium Chloride 0.9% 250 ml @ 0.05 MCG/KG/MIN 13. 439 mls/hr IV .[id number] [facility] Rx#:[id number] fentaNYL (PF) 2,500 mcg 54.16 244.623 In Sodium Chloride 0.9% 200 ml @ Per Protocol IV .Q0M [facility] Rx#:[id number] propofoL 1,000 mg In 356.687 322.494 90.007 Empty Bag 1 bag @ Titrate IV .Q0M [facility] Rx#: [id number] Tube Feeding 324 297 54 Other 60 90 30 Output: Urine 10 5 0 Other 600 Other: Voiding Method Indwelling Catheter Indwelling Catheter ABP, PAP, CO, CI - Last Documented Arterial Blood Pressure 76/72 - Labs CBC & Chem 7: 09/26/20 04:10 09/26/20 04:10 Labs: Abnormal Lab Results - Last 24 Hours (Table) 09/26/20 09/26/20 09/26/20 Range/Units 04:10 04:10 04:20 WBC 14.0 H (3.8-10.6) k/uL RBC 2.99 L (4.30-5.90) m/uL Hgb 10.6 L (13.0-17.5) gm/dL Hct 27.9 L (39.0-53.0) % MCH 35.6 H (25.0-35.0) pg MCHC 38.0 H (31.0-37.0) g/dL ABG pH 7.29 L (7.35-7.45) ABG pO2 75 L (83-108) mmHg ABG HCO3 19 L (21-25) mmol/L ABG O2 Saturation 92.6 L (94-97) % Sodium 128 L (137-145) mmol/L Potassium 5.3 H (3.5-5.1) mmol/L Chloride 95 L (98-107) mmol/L Carbon Dioxide 16 L (22-30) mmol/L BUN 68 H (9-20) mg/dL Creatinine 7.98 H* (0.66-1.25) mg/dL Calcium 7.3 L (8.4-10.2) mg/dL Phosphorus 12.3 H* (2.5-4.5) mg/dL Assessment and Plan Plan: Assessment: 1. Acute kidney injury secondary to ATN secondary to cardiac arrest and cardiogenic shock. Oliguric. Started on hemodialysis September 21. 2. Status post cardiac arrest. 3. Coronary artery disease status post catheterization with stent placement to the circumflex on 09/17/2020. 4. Cardiogenic shock status post dopamine and dobutamine. Ejection fraction 20-25%. 5. Metabolic acidosis secondary to acute kidney injury. Status post bicarb drip. 6. Acute hypoxic respiratory failure. 7. Hypocalcemia secondary to acute kidney injury. Replaced. Better. 8. Hyperphosphatemia secondary to acute kidney injury maintained on PhosLo. 9. A. fib with RVR maintained on amiodarone drip. 10. Hyponatremia secondary to acute kidney injury. Hypervolemic. Plan: Remains off IV fluids. Maintain tube feeds. IV bicarb given this morning. No response in urine output with IV Lasix. Plan for hemodialysis today and again tomorrow with ultrafiltration as able to tolerate.
[2020-09-26] MEDS: DEXMEDETOMIDINE/0.9% NACL(PMX) 400 MCG in EMPTY BAG 1 BAG IV SCH ×4 (09:47→20:01)
[2020-09-26] MEDS: ASPIRIN 81 MG PO SCH (09:49)
[2020-09-26] MEDS: HEPARIN SODIUM,PORCINE/PF 5,000 UNIT/0.5 ML SYRINGE SQ SCH ×2 (09:50→20:01)
[2020-09-26] MEDS: PANTOPRAZOLE 40 MG/10 ML VIAL IVP SCH (09:50)
[2020-09-26] MEDS: CHLORHEXIDINE GLUCONATE 15 ML CUP MUCOUS MEM SCH ×2 (09:50→20:02)
[2020-09-26] MEDS: LACTULOSE 20 GM/30 ML CUP PO SCH (09:50)
[2020-09-26] MEDS: CLOPIDOGREL 75 MG TAB PO SCH (09:50)
[2020-09-26] MEDS: bisacodyL 10 MG SUPP RECTAL SCH (09:51)
--- NOTE | 2020-09-26 11:01 | CT ---
EXAMINATION TYPE: CT brain wo con DATE OF EXAM: 09/26/2020 COMPARISON: 09/22/2020 HISTORY: Anoxic brain injury CT DLP: 1170.[address] of the brain was performed. The ventricles, basal cisterns and sulci overlying the cerebral convexities demonstrate mild enlargem ent. There is no evidence for intracranial hemorrhage or sulcal effacement. There is decreased attenuation about the periventricular white matter and deep white matter of both c erebral hemispheres, compatible with chronic small vessel ischemia. Differential diagnosis does inclu de demyelination. No mass effects are seen.No midline shift. Osseous calvarium is intact. If symptoms persist consider MRI. IMPRESSION: 1. Age related atrophic and chronic small vessel ischemic change without acute intracranial process s een at this time.
[2020-09-26] MEDS: NOREPINEPHRINE 8 MG in SODIUM CHLORIDE 0.9% 250 ML IV SCH (11:04)
[2020-09-26] MEDS: CLEVIDIPINE BUTYRATE 25 MG in EMPTY BAG 1 BAG IV SCH ×2 (11:04→16:32)
--- NOTE | 2020-09-26 11:27 | P.PN ---
Subjective Progress Note Date: 09/26/20 59-year-old male patient, post cardiac arrest, V. fib arrest, who is admitted intensive care unit since 09/17/2020 and the patient is being seen in follow-up today on 09/25/2020. The patient is still intubated on a mechanical ventilator. The patient was a V. fib arrest, received CPR on the scene, defibrillated, received epinephrine and was brought into us in his been in the intensive care unit setting. He turned out to be a case of a ST segment elevation myocardial infarction. He received immediate cardiac catheterization and stenting of the circumflex artery. The patient this morning is sedated with propofol running at 60 mcg/kg per minute. Is also on fentanyl 1 mcg/mg/h. He is off pressors. His cardiac rhythm is sinus with a left bundle branch block pattern. Over the past 24 hours, the patient was given dobutamine to augment his cardiac output. He went into atrial fibrillation with RVR. He was given a bolus of amiodarone and he is currently back into normal sinus rhythm. In terms of his vent support, the patient remains on mechanical ventilator. At this point in time, the pa tient is an assist-control mode at the rate of 28 and a tidal volume of 500 and FiO2 of 50% with a PEEP of 10. The blood gases from today showing a pH of 7.31 with a pCO2 of 35 and pO2 of 122. He is in renal failure. He is receiving dialysis periodically. He received dialysis on 09/20/2020 and 09/21/2020. Dialysis was attempted yesterday, unable to complete as the patient's catheter was kinked and Changes will be done today surgery. He will probably end up having another session of hemodialysis today. When the process of getting the patient sedation holiday in his neurologic function will be reevaluated. CAT scan of the brain another EEG is in progress for today. He is on Levemir in [facility] for blood sugar control. He is on vital high protein at the rate of 27 mL an hour. No abdominal distention. No nausea or vomiting. No fever or chills. Chest x-ray is showing cardiomegaly with small bilateral pleural effusions on some atelectatic changes in lung bases bilaterally. Orogastric tube is in a good location. He does have small pleural effusions. There is stable cardiomegaly. In terms of his blood work, the white cell count is at 9.2 with a hemoglobin of 9.6. Sodium is at 129, potassium at 5.3, serum bicarbonate is 14 with a BUN of 78 and a creatinine of 9.67. On today's evaluation of 09/26/2020, the patient is being given another sedation holiday. The process yesterday got interrupted as the patient became basically a mechanical ventilator and the patient went into atrial fibrillation with rapid ventricular response. At that point, the patient was placed back on sedation with accommodation propofol and fentanyl and he was kept on the sedation throughout the day. This morning, the plan is to get him off the sedation again and utilizing Precedex if needed. A repeat CAT scan of the brain was ordered for today and the CAT scan showed age-related atrophy and chronic small vessel ischemic changes without any acute intracranial process. No evidence of any acute bleeding. On today's evaluation, the patient is grimacing to deep painful stimulation that was applied to his fingers and toes. For now, the patient is calm and comfortable. He is synchronous with the mechanical ventilator. He is on assist control mode of ventilation, at the rate of 28 and a tidal volume of 500 and FiO2 of 40% with a PEEP of 5. The blood gases from today showed a pH of 7.29 with a pCO2 of 41 and pO2 of 75. This was on FiO2 of 40%. The patient's chest x-ray showed stable findings along with some pulmonary a congestion and scattered infiltrates and interstitial edema. The orotracheal tube was in a good location. NG tube was also in a good location. The patient is currently in normal sinus rhythm. He is on amiodarone drip at 1 mg per minute and based on cardiology recommendation, we'll continue the amiodarone drip at a maintenance of 1 mg per minute. A minimal amount of urine output. The patient remains in acute kidney injury. Creatinine is up to 7.98. Underwent hemodialysis yesterday. A another session of hemodialysis will be given to him today. He is afebrile. He is receiving enteral feeding for nutritional support. He continues to be on a combination of aspirin and Plavix. He is on no pressors for now. Had a discussion with the . Updated her on his condition. There is a concern of ongoing hypoxic encephalopathy. Meanwhile, the patient remains on Levemir insulin for blood sugar control in addition a slight scale insulin coverage. The patient is receiving vital high protein which is currently at goal. Current cardiac rhythm is sinus with a bundle- branch block pattern. Objective - Vital Signs Vital signs: Vital Signs Temp 99.3 F 09/26/20 08:00 Pulse 115 H 09/26/20 11:00 Resp 9 L 09/26/20 11:00 BP 135/92 09/26/20 11:00 Pulse Ox 87 L 09/26/20 11:00 Intake & Output 09/25/20 09/26/20 09/26/20 18:59 06:59 18:59 Intake Total 7303.415 9316.040 353.503 Output Total 610 5 0 Balance 458.136 6091.040 353.503 Weight 142.8 kg Intake: IV 156 156 65 0.9 Normal Saline 36 36 15 Pressure Bag Sodium Chloride 0.9% 1, 120 120 50 000 ml @ 10 mls/hr IV . Q24H [facility] Rx#:[id number] Intake, IV Titration 774.179 957.040 123.503 Amount Amiodarone 360 mg In 163.332 Dextrose 5% in Water 200 ml @ 1 MG/MIN 33.333 mls/ hr IV .Q6H [facility] Rx#: [id number] Amiodarone 360 mg In 200 376.663 Dextrose 5% in Water 200 ml @ 1 MG/MIN 33.333 mls/ hr IV .Q6H [facility] Rx#: [id number] Dexmedetomidine/0.9% NaCl 23.503 (Pmx) 400 mcg In Empty Bag 1 bag @ Titrate IV . Q0M [facility] Rx#:[id number] Norepinephrine 8 mg In 13.260 Sodium Chloride 0.9% 250 ml @ 0.05 MCG/KG/MIN 13. 439 mls/hr IV .[id number] [facility] Rx#:[id number] fentaNYL (PF) 2,500 mcg 54.16 244.623 In Sodium Chloride 0.9% 200 ml @ Per Protocol IV .Q0M [facility] Rx#:[id number] propofoL 1,000 mg In 356.687 322.494 100.000 Empty Bag 1 bag @ Titrate IV .Q0M [facility] Rx#: [id number] Tube Feeding 324 297 135 Other 60 90 30 Output: Urine 10 5 0 Other 600 Other: Voiding Method Indwelling Catheter Indwelling Catheter ABP, PAP, CO, CI - Last Documented Arterial Blood Pressure 133/74 - Exam synchronous a mechanical ventilator. Orogastric and orotracheal tube are both in place. Unresponsive, currently on a combination of propofol and fentanyl. Calm and comfortable. Unresponsive. Head exam was generally normal. There was no scleral icterus or corneal arcus. Mucous membranes were moist. Neck was supple and without jugular venous distension, thyromegaly, or carotid bruits. Carotids were easily palpable bilaterally. There was no adenopathy. Lungs were clear to auscultation and percussion, and with normal diaphragmatic excursion. No wheezes or rales were noted. Cardiac exam revealed the PMI to be normally situated and sized. The rhythm was regular and no extrasystoles were noted during several minutes of auscultation. The first and second heart sounds were normal and physiologic splitting of the second heart sound was noted. There were no murmurs, rubs, clicks, or gallops. Abdominal exam revealed normal bowel sounds. The abdomen was soft, non-tender, and without masses, organomegaly, or appreciable enlargement of the abdominal aorta. Examination of the extremities revealed easily palpable radial, femoral and pedal pulses. There was no cyanosis, clubbing or edema.The patient has a tempo rary dialysis catheter in the left femoral vein neurologically, the examination is limited as the patient is currently on that the propofol. The sedation will be discontinued and the patient's condition will be reevaluated. No response to any painful stimulation. Reflexes are +1 and symmetrical and plantars are downgoing. Motor function cannot be assessed. Pupils are reactive to light. There is positive cough and gag reflex at this point in time. - Labs CBC & Chem 7: 09/26/20 04:10 09/26/20 04:10 Labs: Abnormal Lab Results - Last 24 Hours (Table) 09/26/20 09/26/20 09/26/20 Range/Units 04:10 04:10 04:20 WBC 14.0 H (3.8-10.6) k/uL RBC 2.99 L (4.30-5.90) m/uL Hgb 10.6 L (13.0-17.5) gm/dL Hct 27.9 L (39.0-53.0) % MCH 35.6 H (25.0-35.0) pg MCHC 38.0 H (31.0-37.0) g/dL ABG pH 7.29 L (7.35-7.45) ABG pO2 75 L (83-108) mmHg ABG HCO3 19 L (21-25) mmol/L ABG O2 Saturation 92.6 L (94-97) % Sodium 128 L (137-145) mmol/L Potassium 5.3 H (3.5-5.1) mmol/L Chloride 95 L (98-107) mmol/L Carbon Dioxide 16 L (22-30) mmol/L BUN 68 H (9-20) mg/dL Creatinine 7.98 H* (0.66-1.25) mg/dL Calcium 7.3 L (8.4-10.2) mg/dL Phosphorus 12.3 H* (2.5-4.5) mg/dL Assessment and Plan Plan: 1 V. fib cardiac arrest,, secondary to ST segment elevation myocardial infarction, status post cardiac catheterization and stenting of the circumflex coronary artery, status post basement removal of a Impala device. For now, the patient is in a normal sinus rhythm. Hemodynamically stable on no pressors. He has developed significant cardiomyopathy with impaired LV function and an ejection fraction of less than 20%. Nevertheless, he has not required any pressors. He did have a run of atrial fibrillation with rapid ventricular response yesterday as the patient was being weaned off the sedation. Current rhythm is sinus with an LBBB pattern. 2 acute hypoxic respiratory failure secondary to above, remains intubated on a mechanical ventilator 3 anoxic encephalopathy post cardiac arrest, currently on propofol and fentanyl. The patient will be given another sedation holiday today. A repeat CAT scan of the chest showed no acute abnormalities. 4 severe ischemic cardiomyopathy with an ejection fraction of less than 20% 5 acute kidney injury secondary to cardiac arrest induced ATN. Currently on hemodialysis, the patient remains oliguric 6 shock liver, improving 7 paroxysmal atrial fibrillation, current rhythm is sinus 8 left bundle branch block pattern, current rhythm is sinus 9 hypothyroidism 10 history of hypertension 11 anion gap metabolic acidosis secondary to above Plan Continue ventilator support No ventilator changes for today Do a limited echo to evaluate LV function CAT scan of the brain came back without any acute abnormalities No need for pressors Continue IV amiodarone Continue aspirin and Plavix Stop fentanyl limb propofol and assess the patient's mental status. If needed, utilize Precedex Update the family on his condition Hemodialysis today Enteral feeding for nutritional support We'll continue to follow make further recommendations based on his progress. Critically care evaluation that was on a more than 30 minutes Time with Patient: Greater than 30
--- NOTE | 2020-09-26 12:01 | ECHOF ---
Referral Reason:limited echo to evaluate for LVEF MEASUREMENTS -------- HEIGHT: 182.9 cm WEIGHT: 142.4 kg BP: 108/63 IVSd: 1.7 cm (0.6 - 1.1) LVIDd: 5.8 cm (3.9 - 5.3) LVPWd: 1.8 cm (0.6 - 1.1) IVSs: 1.6 cm LVIDs: 5.1 cm LVPWs: 2.1 cm FINDINGS -------- Sinus rhythm. This was a technically difficult study with suboptimal apical views. Limited Study Pt. on a vent. The left ventricle is mildly dilated. There is moderate concentric left ventricular hypertrophy. There is normal global left ventricular contractility. Overall left ventricular systolic function i s severely impaired with, an EF between 20 - 25 %. Global hypokinesis CONCLUSIONS -------- 1. The left ventricle is mildly dilated. 2. There is moderate concentric left ventricular hypertrophy. 3. Overall left ventricular systolic function is severely impaired with, an EF between 20 - 25 %. 4. Global hypokinesis [employer]ER: Aurora Morfin, [facility]
[2020-09-26 12:02] LABS: Glucose,Whole Blood 99 mg/dL (75-99)
[2020-09-26 12:23] LABS: ABG HCO3 19 mmol/L (21-25); ABG Oxygen Saturation 94.3 % (94-97); ABG PCO2 32 mmHg (35-45); ABG PH 7.39 (7.35-7.45); ABG PO2 76 mmHg (83-108); ABG TCO2 20 mmol/L (19-24)
[2020-09-26] MEDS: SODIUM CHLORIDE 0.9% 1,000 ML IV SCH (14:11)
--- NOTE | 2020-09-26 15:39 | P.PN ---
Subjective Progress Note Date: 09/26/20 Patient was undergoing dialysis at the time of my evaluation. He was off of sedation. His eyes are open and patient was able to follow commands when I asked her to squeeze my fingers. He also close his eyes tightly when I asked him to do so. He is currently in A. fib on the monitor. Objective - Vital Signs Vital signs: Vital Signs Temp 99.3 F 09/26/20 08:00 Pulse 120 H 09/26/20 15:00 Resp 27 H 09/26/20 15:00 BP 131/95 09/26/20 15:00 Pulse Ox 94 L 09/26/20 15:00 Intake & Output 09/25/20 09/26/20 09/26/20 18:59 06:59 18:59 Intake Total 5226.733 6544.040 788.650 Output Total 610 5 5 Balance 268.502 9377.040 783.650 Weight 142.8 kg 142.8 kg Intake: IV 156 156 117 0.9 Normal Saline 36 36 27 Pressure Bag Sodium Chloride 0.9% 1, 120 120 90 000 ml @ 10 mls/hr IV . Q24H [facility] Rx#:[id number] Intake, IV Titration 774.179 957.040 372.650 Amount Amiodarone 360 mg In 163.332 Dextrose 5% in Water 200 ml @ 1 MG/MIN 33.333 mls/ hr IV .Q6H [facility] Rx#: [id number] Amiodarone 360 mg In 200 376.663 200 Dextrose 5% in Water 200 ml @ 1 MG/MIN 33.333 mls/ hr IV .Q6H [facility] Rx#: [id number] Dexmedetomidine/0.9% NaCl 72.650 (Pmx) 400 mcg In Empty Bag 1 bag @ Titrate IV . Q0M [facility] Rx#:[id number] Norepinephrine 8 mg In 13.260 Sodium Chloride 0.9% 250 ml @ 0.05 MCG/KG/MIN 13. 439 mls/hr IV .[id number] [facility] Rx#:[id number] fentaNYL (PF) 2,500 mcg 54.16 244.623 In Sodium Chloride 0.9% 200 ml @ Per Protocol IV .Q0M [facility] Rx#:[id number] propofoL 1,000 mg In 356.687 322.494 100.000 Empty Bag 1 bag @ Titrate IV .Q0M [facility] Rx#: [id number] Tube Feeding 324 297 239 Other 60 90 60 Output: Urine 10 5 5 Other 600 Other: Voiding Method Indwelling Catheter Indwelling Catheter Indwelling Catheter ABP, PAP, CO, CI - Last Documented Arterial Blood Pressure 78/75 - Exam General: The patient is intubated Eye: there is normal conjunctiva bilaterally. Neck: The neck is supple, there is no JVD. Cardiovascular: Normal S1-S2, no S3-S4, no murmurs. Respiratory: Lungs with mechanical ventilator sounds Gastrointestinal: Abdomen is soft, nontender Musculoskeletal: There is +1 pedal edema. Skin: Skin is warm and dry - Labs CBC & Chem 7: 09/26/20 04:10 09/26/20 04:10 Labs: Abnormal Lab Results - Last 24 Hours (Table) 09/26/20 09/26/20 09/26/20 Range/Units 04:10 04:10 04:20 WBC 14.0 H (3.8-10.6) k/uL RBC 2.99 L (4.30-5.90) m/uL Hgb 10.6 L (13.0-17.5) gm/dL Hct 27.9 L (39.0-53.0) % MCH 35.6 H (25.0-35.0) pg MCHC 38.0 H (31.0-37.0) g/dL ABG pH 7.29 L (7.35-7.45) ABG pCO2 (35-45) mmHg ABG pO2 75 L (83-108) mmHg ABG HCO3 19 L (21-25) mmol/L ABG O2 Saturation 92.6 L (94-97) % Sodium 128 L (137-145) mmol/L Potassium 5.3 H (3.5-5.1) mmol/L Chloride 95 L (98-107) mmol/L Carbon Dioxide 16 L (22-30) mmol/L BUN 68 H (9-20) mg/dL Creatinine 7.98 H* (0.66-1.25) mg/dL Calcium 7.3 L (8.4-10.2) mg/dL Phosphorus 12.3 H* (2.5-4.5) mg/dL 09/26/20 Range/Units 12:20 WBC (3.8-10.6) k/uL RBC (4.30-5.90) m/uL Hgb (13.0-17.5) gm/dL Hct (39.0-53.0) % MCH (25.0-35.0) pg MCHC (31.0-37.0) g/dL ABG pH (7.35-7.45) ABG pCO2 32 L (35-45) mmHg ABG pO2 76 L (83-108) mmHg ABG HCO3 19 L (21-25) mmol/L ABG O2 Saturation (94-97) % Sodium (137-145) mmol/L Potassium (3.5-5.1) mmol/L Chloride (98-107) mmol/L Carbon Dioxide (22-30) mmol/L BUN (9-20) mg/dL Creatinine (0.66-1.25) mg/dL Calcium (8.4-10.2) mg/dL Phosphorus (2.5-4.5) mg/dL Assessment and Plan Assessment: Patient is a 59-year-old male with a history of hypertension, hypothyroidism, and obesity who presented to the ER after cardiac arrest in the field. He had multiple rounds of CPR, Epi, and Defib prior to obtaining ROSC. It appears that his down time in the field was approximately 30 minutes on review of the EMS run sheet. He was intubated and sedated he underwent a left heart cath with stent to the LAD and impella placement. Echocardiogram demonstrated an EF of less than 20% with global hypokenesis. He was determined to be in cardiogenic shock requiring dopamine, dobutamine, and levophed. He has required a Nimbex drip to maintain adequate ventilation until 09/20/20. He demonstrated shock liver on arrival. He has also had progressive anuric renal failure, nephrology was consulted HD was initiated on 09/21/20. He had one abnormal EEG with worsening of EEG on 09/20/20. We have been unable to wean sedation due to agitation and there are concerns for severe anoxic encephalopathy. His CXR was worsening and procalcitonin was elevated and he was started on zosyn with concerns for possible underlying PNA. He had not been awake or following commands with sedation holidays. Below is the list list of his medical problems addressed during this hospitalization V. fib arrest due to ST segment elevated myocardial infarction status post PCI to the circumflex and impella placement Acute systolic congestive heart failure Ischemic cardiomyopathy with ejection fraction less than 20% Cardiogenic shock - dopamine off 09/23/20, dobutamine, levophed off by 09/22/20 - cardio recs - ASA, Plavix, lipitor Paroxysmal atrial fibrillation requiring IV amiodarone. Cardiology following closely Hypoxic/Anoxic encephalopathy - neuro recs - continue with sedation holidays - CT head with no acute findings Acute kidney injury secondary to hypoperfusion and likely ATN requiring hemodialysis - nephrology recs - Avoid nephrotoxic agents - maintain map >65 Acute hypoxic respiratory failure, Pneumonia possible gram negative, completed treatment - off zosyn - pulm recs - pulm hygeine Anemia - Thrombocytopenia - follow CBC - no indication for transfusion at this point in time. Generalized Dermatitis, improved with IV steroids Morbid obesity with BMI 37.7 Shock liver, resolved Poor overall prognosis. DVT prophylaxis: heparin Discussed with: nursing A total of 35 minutes was spent on the care of this complex patient more than 50% of the time was spent in counseling and care coordination.
--- NOTE | 2020-09-26 16:11 | PN ---
PROGRESS NOTE 59-year-old gentleman that is admitted to hospital with the cardiac arrest and is underwent cardiac catheterization and angioplasty of circumflex coronary artery. Currently intubated on vent, has had episodes of paroxysmal atrial fibrillation. He is currently on IV amiodarone which I am going to continue. Presently plans are underway to wean and extubate him. He is still receiving hemodialysis. Creatinine is 7.9. EXAM: Patient is comfortable at rest. Heart rate is 100 beats per minute. Blood pressure is 145/90 respiratory is 18, blood pressure 133/66, respiratory rate 18. Chest exam reveals diminished air entry at the bases, heart exam reveals first and second heart sounds. Systolic murmur at the apex. ABDOMEN: Soft. Examination of extremities reveal trace edema. Peripheral pulses are felt. Lab show that the hemoglobin is 10.6, platelet count is 266, potassium is 5.3. BUN is 68, creatinine is 8. ASSESSMENT: acute myocardial infarction. 1. Status post cardiac arrest. 2. Vent requiring respiratory failure. 3. Renal failure. 4. Paroxysmal atrial fibrillation. PLAN: Continue the IV amiodarone. Prognosis is guarded. MMODL / IJN: [id number] /
[2020-09-26 17:21] LABS: ABG Base Excess -2.9 mmol/L; ABG HCO3 22 mmol/L (21-25); ABG Oxygen Saturation 90.3 % (94-97); ABG PCO2 34 mmHg (35-45); ABG PH 7.42 (7.35-7.45); ABG PO2 62 mmHg (83-108); ABG TCO2 23 mmol/L (19-24)
[2020-09-26] MEDS ORDERED: HYDROmorphone 0.5 MG/0.5 ML SYRINGE IVP PRN (17:28)
[2020-09-26] MEDS ORDERED: HYDROmorphone 1 MG/ML 1 ML SYRINGE IVP PRN (17:28)
--- NOTE | 2020-09-26 18:05 | P.PN ---
Subjective Progress Note Date: 09/26/20 Patient seen at bedside and the per the patient's nurse he was on propofol IV drip 45mcg/kg/min in the AM and was turned to 10mcg/kg/min about 5 minutes ago. Fentanyl IV drip was turned off in the AM and in process of transition from IV propofol to Precedx. Per the nurseto like activity is noted. No change in examination. Objective - Vital Signs Vital signs: Vital Signs Temp 99.3 F 09/26/20 08:00 Pulse 93 09/26/20 17:00 Resp 30 H 09/26/20 17:00 BP 140/80 09/26/20 17:00 Pulse Ox 94 L 09/26/20 17:00 Intake & Output 09/25/20 09/26/20 09/26/20 18:59 06:59 18:59 Intake Total 1050.609 3297.040 1070.245 Output Total 610 5 15 Balance 219.755 6986.040 1055.245 Weight 142.8 kg 142.8 kg Intake: IV 156 156 143 0.9 Normal Saline 36 36 33 Pressure Bag Sodium Chloride 0.9% 1, 120 120 110 000 ml @ 10 mls/hr IV . Q24H [facility] Rx#:[id number] Intake, IV Titration 774.179 957.040 582.245 Amount Amiodarone 360 mg In 163.332 Dextrose 5% in Water 200 ml @ 1 MG/MIN 33.333 mls/ hr IV .Q6H [facility] Rx#: [id number] Amiodarone 360 mg In 200 376.663 389.998 Dextrose 5% in Water 200 ml @ 1 MG/MIN 33.333 mls/ hr IV .Q6H [facility] Rx#: [id number] Clevidipine Butyrate 25 1.033 mg In Empty Bag 1 bag @ 1 MG/HR 2 mls/hr IV .Q24H [facility] Rx#:[id number] Dexmedetomidine/0.9% NaCl 91.214 (Pmx) 400 mcg In Empty Bag 1 bag @ Titrate IV . Q0M [facility] Rx#:[id number] Norepinephrine 8 mg In 13.260 Sodium Chloride 0.9% 250 ml @ 0.05 MCG/KG/MIN 13. 439 mls/hr IV .[id number] [facility] Rx#:[id number] fentaNYL (PF) 2,500 mcg 54.16 244.623 In Sodium Chloride 0.9% 200 ml @ Per Protocol IV .Q0M [facility] Rx#:[id number] propofoL 1,000 mg In 356.687 322.494 100.000 Empty Bag 1 bag @ Titrate IV .Q0M [facility] Rx#: [id number] Tube Feeding 324 297 285 Other 60 90 60 Output: Urine 10 5 15 Other 600 Other: Voiding Method Indwelling Catheter Indwelling Catheter Indwelling Catheter ABP, PAP, CO, CI - Last Documented Arterial Blood Pressure 178/82 - Exam GENERAL: The patient is lying in bed, obese and does not seem in acute distress. LUNG: Clear to auscultation bilaterally no wheezing noted throughout. Not labored breathing. He is intubated and on ventilator. NEUROLOGICAL: Is limited since is on IV propofol 10mcg/kg/min (was at 45mcg 5 minutes ago) and IV fentanyl 1mcg/kg/hr was turned off about 5 minutes ago as well. . Higher mental function: The patient is comatose GCS 4 (E2, VT1, M1). Not waking up or verbalizing or following commands. Cranial nerves: The primary gaze is midline. The pupils are round, equal and reactive to light. The pupils are around 3-4mm bilaterally. +ve corneal reflex bilaterally. No facial weakness noted. Positive gag reflex. Is breathing over the vent. Motor: Gait is deferred because of condition. The strength is hard to assess but not withdrawing to any of extremities to painful stimuli. Normal tone and bulk. No spontaneous movement. Cerebellum: Could not assess. Sensation: He frowns to painful stimuli throughout. Reflexes (right/left): 1+ throughout. Plantars are downgoing bilaterally. IMAGING/OTHER TESTS CT of the head on 09/26/2020 ordered by the ICU team is reported as age-related atrophic and chronic small vessel ischemic change without acute intracranial process seen at this time. Limited 2-D echo toay was reported as left ventricle is mildly dilated. Moderate concentric left ventricular hypertrophy. Overall left ventricle systo lic function is severely impaired with ejection fraction of 20-25%. Global hypokinesis - Labs CBC & Chem 7: 09/26/20 04:10 09/26/20 04:10 Labs: Abnormal Lab Results - Last 24 Hours (Table) 09/26/20 09/26/20 09/26/20 Range/Units 04:10 04:10 04:20 WBC 14.0 H (3.8-10.6) k/uL RBC 2.99 L (4.30-5.90) m/uL Hgb 10.6 L (13.0-17.5) gm/dL Hct 27.9 L (39.0-53.0) % MCH 35.6 H (25.0-35.0) pg MCHC 38.0 H (31.0-37.0) g/dL ABG pH 7.29 L (7.35-7.45) ABG pCO2 (35-45) mmHg ABG pO2 75 L (83-108) mmHg ABG HCO3 19 L (21-25) mmol/L ABG O2 Saturation 92.6 L (94-97) % Sodium 128 L (137-145) mmol/L Potassium 5.3 H (3.5-5.1) mmol/L Chloride 95 L (98-107) mmol/L Carbon Dioxide 16 L (22-30) mmol/L BUN 68 H (9-20) mg/dL Creatinine 7.98 H* (0.66-1.25) mg/dL Calcium 7.3 L (8.4-10.2) mg/dL Phosphorus 12.3 H* (2.5-4.5) mg/dL 09/26/20 09/26/20 Range/Units 12:20 17:19 WBC (3.8-10.6) k/uL RBC (4.30-5.90) m/uL Hgb (13.0-17.5) gm/dL Hct (39.0-53.0) % MCH (25.0-35.0) pg MCHC (31.0-37.0) g/dL ABG pH (7.35-7.45) ABG pCO2 32 L 34 L (35-45) mmHg ABG pO2 76 L 62 L (83-108) mmHg ABG HCO3 19 L (21-25) mmol/L ABG O2 Saturation 90.3 L (94-97) % Sodium (137-145) mmol/L Potassium (3.5-5.1) mmol/L Chloride (98-107) mmol/L Carbon Dioxide (22-30) mmol/L BUN (9-20) mg/dL Creatinine (0.66-1.25) mg/dL Calcium (8.4-10.2) mg/dL Phosphorus (2.5-4.5) mg/dL Assessment and Plan Assessment: * Hypoxic/anoxic encephalopathy status post cardiac arrest. Also component of encephalopathy due to medication effect (propofol and fentanyl) and metabolic (Acute kidney injury, electrolyte imbalance (hyponatremia, hypocalcemia) * A-fib with RVR * Electrolyte imbalance (hyponatremia 128, hypocalcemia 7.1 and hyperkalemia) * Status post out of the Hospital cardio pulmonary arrest, secondary to ST segment elevation myocardial infarction status post cardiopulmonary resuscitation with return responses circulation and stent placement in the circumflex coronary artery * Cardiogenic shock * Severe ischemic cardiomyopathy (with EF <20%) * Acute kidney injury with initiation of hemodialysis * History of hypertension * History of hypertelorism Plan: We'll defer the electrolytes and imbalance correction to the nephrology team as well as ICU/primary team. Cardiology is on board. Nephrology is on board Cardiology is on board Will defer the rest of the medical management to the ICU team and primary team. The condition is very guarded. Patient will be transition to Precedex and hopefully will can have a better examination to assess his condition. The plan is discussed with his nurse. Fadi Johnson MD Neuro-Hospitalist Time with Patient: Less than 30
[2020-09-26 18:30] LABS: Glucose,Whole Blood 102 mg/dL (75-99)
[2020-09-26] MEDS ORDERED: METOCLOPRAMIDE 5 MG/ML 2 ML VIAL IVP PRN (19:21)
[2020-09-26 20:04] LABS: Calcium 7.4 mg/dL (8.4-10.2); Potassium 4.7 mmol/L (3.5-5.1)
[2020-09-26 23:56] LABS: Glucose,Whole Blood 108 mg/dL (75-99)
[2020-09-27] MEDS: IPRATROPIUM-ALBUTEROL 3 ML NEB INHALATION SCH ×6 (03:32→23:37)
[2020-09-27] MEDS: HYDROmorphone 1 MG/ML 1 ML SYRINGE IVP PRN (03:51)
[2020-09-27 04:14] LABS: HCT 26.8 % (39.0-53.0); HGB 9.9 gm/dL (13.0-17.5); MCH 34.5 pg (25.0-35.0); MCV 93.2 fL (80.0-100.0); Mean Platelet Volume 7.9; Platelet Count 270 k/uL (150-450); RBC 2.88 m/uL (4.30-5.90); RDW 13.9 % (11.5-15.5); WBC 15.2 k/uL (3.8-10.6)
[2020-09-27] MEDS: AMIODARONE 360 MG in DEXTROSE 5% IN WATER 200 ML IV SCH ×8 (04:47→23:41)
[2020-09-27 04:56] LABS: Calcium 7.6 mg/dL (8.4-10.2); Potassium 5.1 mmol/L (3.5-5.1)
[2020-09-27 05:12] LABS: ABG Base Excess -4.1 mmol/L; ABG HCO3 22 mmol/L (21-25); ABG Oxygen Saturation 98.5 % (94-97); ABG PCO2 40 mmHg (35-45); ABG PH 7.35 (7.35-7.45); ABG PO2 129 mmHg (83-108); ABG TCO2 23 mmol/L (19-24); Allen Test Performed? Yes
[2020-09-27] MEDS: NOREPINEPHRINE 8 MG in SODIUM CHLORIDE 0.9% 250 ML IV SCH ×2 (06:06→23:42)
[2020-09-27] MEDS: LEVOTHYROXINE 50 MCG TAB PO SCH (06:32)
[2020-09-27] MEDS: CALCIUM ACETATE 667 MG TAB PO SCH ×3 (06:32→18:07)
[2020-09-27 06:57] LABS: Phosphorus 11.7 mg/dL (2.5-4.5)
--- NOTE | 2020-09-27 08:28 | XR ---
EXAMINATION TYPE: XR chest 1V portable DATE OF EXAM: 09/27/2020 Comparison: 09/26/2020, 09/18/2020 Clinical History: 59-year-old male with mechanical vent Findings: ET tube satisfactory. NG tube courses below the diaphragm. Heart is mildly enlarged. Continued right hilar prominence, patchy right basilar, retrocardiac, and right infrahilar opacities. Distention of t he azygos vein. Left PICC tip not seen beyond the mid SVC level. Impression: Continued findings suggestive of CHF with interstitial pulmonary edema and patchy infiltrates versus edema in the right greater the left lower lungs.
[2020-09-27] MEDS: PANTOPRAZOLE 40 MG/10 ML VIAL IVP SCH (08:29)
[2020-09-27] MEDS: CHLORHEXIDINE GLUCONATE 15 ML CUP MUCOUS MEM SCH ×2 (08:29→20:56)
[2020-09-27] MEDS: ASPIRIN 81 MG PO SCH (08:29)
[2020-09-27] MEDS: bisacodyL 10 MG SUPP RECTAL SCH ×2 (08:29→08:49)
[2020-09-27] MEDS: HEPARIN SODIUM,PORCINE/PF 5,000 UNIT/0.5 ML SYRINGE SQ SCH (08:30)
[2020-09-27] MEDS: CLOPIDOGREL 75 MG TAB PO SCH (08:30)
[2020-09-27] MEDS: LACTULOSE 20 GM/30 ML CUP PO SCH (08:42)
[2020-09-27] MEDS ORDERED: APIXABAN 2.5 MG TABLET PO SCH (09:00)
[2020-09-27] MEDS ORDERED: FUROSEMIDE 10 MG/ML 10 ML VIAL IV STA (09:06)
--- NOTE | 2020-09-27 09:06 | P.PN ---
Subjective Patient is seen in follow-up for acute kidney injury. Remains off vasopressors. Currently on 70% FiO2. Blood pressure stable. On amiodarone drip for A. fib. Oliguric. Started on hemodialysis September 21. Receiving tube feeding. Has a low- grade fever. Vital signs: Stable. General: The patient appeared well nourished and normally developed. HEENT: Intubated. LUNGS: Breath sounds decreased. HEART: Irregular rate and rhythm. ABDOMEN: Soft, no distention. EXTREMITITES: 1+ edema. Objective - Vital Signs Vital signs: Vital Signs Temp 100.2 F H 09/27/20 08:00 Pulse 104 H 09/27/20 08:00 Resp 26 H 09/27/20 08:00 BP 140/89 09/27/20 08:00 Pulse Ox 98 09/27/20 08:00 Intake & Output 09/26/20 09/27/20 09/27/20 18:59 06:59 18:59 Intake Total 2647.386 3760.130 102 Output Total 15 25 0 Balance 2540.666 4666.130 102 Weight 142.8 kg 156.8 kg Intake: IV 156 156 26 0.9 Normal Saline 36 36 6 Pressure Bag Sodium Chloride 0.9% 1, 120 120 20 000 ml @ 10 mls/hr IV . Q24H [facility] Rx#:[id number] Intake, IV Titration 591.912 857.130 Amount Amiodarone 360 mg In 389.998 379.996 Dextrose 5% in Water 200 ml @ 1 MG/MIN 33.333 mls/ hr IV .Q6H [facility] Rx#: [id number] Clevidipine Butyrate 25 10.700 mg In Empty Bag 1 bag @ 1 MG/HR 2 mls/hr IV .Q24H [facility] Rx#:[id number] Dexmedetomidine/0.9% NaCl 91.214 87.029 (Pmx) 400 mcg In Empty Bag 1 bag @ Titrate IV . Q0M [facility] Rx#:[id number] propofoL 1,000 mg In 100.000 390.105 Empty Bag 1 bag @ Titrate IV .Q0M [facility] Rx#: [id number] Tube Feeding 308 276 46 Other 60 90 30 Output: Urine 15 25 0 Other: Voiding Method Indwelling Catheter Indwelling Catheter # Bowel Movements 1 ABP, PAP, CO, CI - Last Documented Arterial Blood Pressure 117/73 - Labs CBC & Chem 7: 09/27/20 03:55 09/27/20 03:55 Labs: Abnormal Lab Results - Last 24 Hours (Table) 09/26/20 09/26/20 09/26/20 Range/Units 12:20 17:19 18:29 WBC (3.8-10.6) k/uL RBC (4.30-5.90) m/uL Hgb (13.0-17.5) gm/dL Hct (39.0-53.0) % ABG pCO2 32 L 34 L (35-45) mmHg ABG pO2 76 L 62 L (83-108) mmHg ABG HCO3 19 L (21-25) mmol/L ABG O2 Saturation 90.3 L (94-97) % Sodium (137-145) mmol/L Chloride (98-107) mmol/L Carbon Dioxide (22-30) mmol/L BUN (9-20) mg/dL Creatinine (0.66-1.25) mg/dL Glucose (74-99) mg/dL POC Glucose (mg/dL) 102 H (75-99) mg/dL Calcium (8.4-10.2) mg/dL Phosphorus (2.5-4.5) mg/dL 09/26/20 09/26/20 09/27/20 Range/Units 19:36 23:55 03:55 WBC 15.2 H (3.8-10.6) k/uL RBC 2.88 L (4.30-5.90) m/uL Hgb 9.9 L (13.0-17.5) gm/dL Hct 26.8 L (39.0-53.0) % ABG pCO2 (35-45) mmHg ABG pO2 (83-108) mmHg ABG HCO3 (21-25) mmol/L ABG O2 Saturation (94-97) % Sodium 135 L (137-145) mmol/L Chloride (98-107) mmol/L Carbon Dioxide 19 L (22-30) mmol/L BUN 59 H (9-20) mg/dL Creatinine 7.26 H* (0.66-1.25) mg/dL Glucose 102 H (74-99) mg/dL POC Glucose (mg/dL) 108 H (75-99) mg/dL Calcium 7.4 L (8.4-10.2) mg/dL Phosphorus (2.5-4.5) mg/dL 09/27/20 09/27/20 Range/Units 03:55 05:06 WBC (3.8-10.6) k/uL RBC (4.30-5.90) m/uL Hgb (13.0-17.5) gm/dL Hct (39.0-53.0) % ABG pCO2 (35-45) mmHg ABG pO2 129 H (83-108) mmHg ABG HCO3 (21-25) mmol/L ABG O2 Saturation 98.5 H (94-97) % Sodium 133 L (137-145) mmol/L Chloride 97 L (98-107) mmol/L Carbon Dioxide 20 L (22-30) mmol/L BUN 66 H (9-20) mg/dL Creatinine 7.58 H* (0.66-1.25) mg/dL Glucose (74-99) mg/dL POC Glucose (mg/dL) (75-99) mg/dL Calcium 7.6 L (8.4-10.2) mg/dL Phosphorus 11.7 H* (2.5-4.5) mg/dL Assessment and Plan Plan: Assessment: 1. Acute kidney injury secondary to ATN secondary to cardiac arrest and cardiogenic shock. Oliguric. Started on hemodialysis September 21. 2. Status post cardiac arrest. 3. Coronary artery disease status post catheterization with stent placement to the circumflex on 09/17/2020. 4. Cardiogenic shock status post dopamine and dobutamine. Ejection fraction 20-25%. 5. Metabolic acidosis secondary to acute kidney injury. Status post bicarb drip. 6. Acute hypoxic respiratory failure. 7. Hypocalcemia secondary to acute kidney injury. Replaced. Better. 8. Hyperphosphatemia secondary to acute kidney injury maintained on PhosLo. 9. A. fib with RVR maintained on amiodarone drip. 10. Hyponatremia secondary to acute kidney injury. Hypervolemic. Plan: Maintain tube feeds. Repeat Lasix 80 mg IV once today. Plan for hemodialysis today and again tomorrow with ultrafiltration as able to tolerate.
--- NOTE | 2020-09-27 09:14 | P.PN ---
Subjective Progress Note Date: 09/27/20 59-year-old male patient, post cardiac arrest, V. fib arrest, who is admitted intensive care unit since 09/17/2020 and the patient is being seen in follow-up today on 09/25/2020. The patient is still intubated on a mechanical ventilator. The patient was a V. fib arrest, received CPR on the scene, defibrillated, received epinephrine and was brought into us in his been in the intensive care unit setting. He turned out to be a case of a ST segment elevation myocardial infarction. He received immediate cardiac catheterization and stenting of the circumflex artery. The patient this morning is sedated with propofol running at 60 mcg/kg per minute. Is also on fentanyl 1 mcg/mg/h. He is off pressors. His cardiac rhythm is sinus with a left bundle branch block pattern. Over the past 24 hours, the patient was given dobutamine to augment his cardiac output. He went into atrial fibrillation with RVR. He was given a bolus of amiodarone and he is currently back into normal sinus rhythm. In terms of his vent support, the patient remains on mechanical ventilator. At this point in time, the pa tient is an assist-control mode at the rate of 28 and a tidal volume of 500 and FiO2 of 50% with a PEEP of 10. The blood gases from today showing a pH of 7.31 with a pCO2 of 35 and pO2 of 122. He is in renal failure. He is receiving dialysis periodically. He received dialysis on 09/20/2020 and 09/21/2020. Dialysis was attempted yesterday, unable to complete as the patient's catheter was kinked and Changes will be done today surgery. He will probably end up having another session of hemodialysis today. When the process of getting the patient sedation holiday in his neurologic function will be reevaluated. CAT scan of the brain another EEG is in progress for today. He is on Levemir in [facility] for blood sugar control. He is on vital high protein at the rate of 27 mL an hour. No abdominal distention. No nausea or vomiting. No fever or chills. Chest x-ray is showing cardiomegaly with small bilateral pleural effusions on some atelectatic changes in lung bases bilaterally. Orogastric tube is in a good location. He does have small pleural effusions. There is stable cardiomegaly. In terms of his blood work, the white cell count is at 9.2 with a hemoglobin of 9.6. Sodium is at 129, potassium at 5.3, serum bicarbonate is 14 with a BUN of 78 and a creatinine of 9.67. On today's evaluation of 09/26/2020, the patient is being given another sedation holiday. The process yesterday got interrupted as the patient became basically a mechanical ventilator and the patient went into atrial fibrillation with rapid ventricular response. At that point, the patient was placed back on sedation with accommodation propofol and fentanyl and he was kept on the sedation throughout the day. This morning, the plan is to get him off the sedation again and utilizing Precedex if needed. A repeat CAT scan of the brain was ordered for today and the CAT scan showed age-related atrophy and chronic small vessel ischemic changes without any acute intracranial process. No evidence of any acute bleeding. On today's evaluation, the patient is grimacing to deep painful stimulation that was applied to his fingers and toes. For now, the patient is calm and comfortable. He is synchronous with the mechanical ventilator. He is on assist control mode of ventilation, at the rate of 28 and a tidal volume of 500 and FiO2 of 40% with a PEEP of 5. The blood gases from today showed a pH of 7.29 with a pCO2 of 41 and pO2 of 75. This was on FiO2 of 40%. The patient's chest x-ray showed stable findings along with some pulmonary a congestion and scattered infiltrates and interstitial edema. The orotracheal tube was in a good location. NG tube was also in a good location. The patient is currently in normal sinus rhythm. He is on amiodarone drip at 1 mg per minute and based on cardiology recommendation, we'll continue the amiodarone drip at a maintenance of 1 mg per minute. A minimal amount of urine output. The patient remains in acute kidney injury. Creatinine is up to 7.98. Underwent hemodialysis yesterday. A another session of hemodialysis will be given to him today. He is afebrile. He is receiving enteral feeding for nutritional support. He continues to be on a combination of aspirin and Plavix. He is on no pressors for now. Had a discussion with the . Updated her on his condition. There is a concern of ongoing hypoxic encephalopathy. Meanwhile, the patient remains on Levemir insulin for blood sugar control in addition a slight scale insulin coverage. The patient is receiving vital high protein which is currently at goal. Current cardiac rhythm is sinus with a bundle- branch block pattern. 09/27/2020, I'm seeing the patient for a follow-up. Note that the patient is a case of a cardiac arrest with a STEMI requiring emergent cardiac catheterization and stenting of the circumflex. During the course of his treatment, the patient required insertion and removal of an impeller device. In any rate, there was a concern of the patient was having anoxic encephalopathy. Yesterday, I took him off the fentanyl and the propofol and I switched him to Precedex. As the weaning was being done, the patient was given a sedation holiday and he got to the point where he was awake and following some simple commands. He would open up his eyes. He would move his toes and fingers upon demand. This was also confirmed by neurology. As such, we believe that there is adequate neurologic functions. Nevertheless, as the patient was taken off the sedation, he required more sedation he was placed on Precedex and ultimately were unable to control his restlessness and the patient was having increased tachypnea tachycardia and episodes of atrial fibrillation with rapid ventricular response. He was also desaturating as the patient was becoming asynchronous with a mechanical ventilator. I had to put him back on propofol is currently running at 45 mcg/kg per minute. He stayed on propofol throughout the night. Meanwhile, he remains on assist control mode at a rate of 22 with a tidal volume of 500 and FiO2 of 70% with a PEEP of 10. The blood gases from today showing a pH of 7.35 with a pCO2 of 40 and pO2 of 129. The chest x-ray showing development of a right lower lobe pulmonary infiltrate. ET tube is in a good location. There is a suspicion of a right lower lobe pneumonia. White cell count is up to 15.2. Mild dynamically, he is on no pressors. He is back in normal sinus rhythm. He remains on amiodarone 1 mg per minute per front end application developer recommendation. He does have a bundle-branch block pattern. A repeat echocardiogram was done today and his EF is still poor, less than 20%. He remains in renal failure. He is requiring daily hemodialysis. Underwent hemodialysis yesterday with ultrafiltration of 500 mL. He continues to have extensive swelling in the upper and lower extremity and in his scrotum. On today's evaluation, he is also noted to have diminished pulses in lower extremities bilaterally. Doppler significant drop in the right foot. Right foot is cold and an same time there is some skin mottling and cyanosis in his toes mainly on the right. As mentioned, the right foot is cold yet Doppler signals are present. His previously inserted and patella was in the right femoral artery. There is also some rash developing over his upper thighs and abdomen and trunk and shoulders and upper extremities. He is receiving enteral feeding for nutritional support and is currently on vital high protein running at 23 mL an hour. Urine output is 5 mL an hour. Objective - Vital Signs Vital signs: Vital Signs Temp 100.2 F H 09/27/20 08:00 Pulse 104 H 09/27/20 08:00 Resp 26 H 09/27/20 08:00 BP 140/89 09/27/20 08:00 Pulse Ox 98 09/27/20 08:00 Intake & Output 09/26/20 09/27/20 09/27/20 18:59 06:59 18:59 Intake Total 6684.828 4583.130 102 Output Total 15 25 0 Balance 0584.943 7741.130 102 Weight 142.8 kg 156.8 kg Intake: IV 156 156 26 0.9 Normal Saline 36 36 6 Pressure Bag Sodium Chloride 0.9% 1, 120 120 20 000 ml @ 10 mls/hr IV . Q24H JORDANA Rx#:[id number] Intake, IV Titration 591.912 857.130 Amount Amiodarone 360 mg In 389.998 379.996 Dextrose 5% in Water 200 ml @ 1 MG/MIN 33.333 mls/ hr IV .Q6H JORDANA Rx#: [id number] Clevidipine Butyrate 25 10.700 mg In Empty Bag 1 bag @ 1 MG/HR 2 mls/hr IV .Q24H JORDANA Rx#:[id number] Dexmedetomidine/0.9% NaCl 91.214 87.029 (Pmx) 400 mcg In Empty Bag 1 bag @ Titrate IV . Q0M JORDANA Rx#:[id number] propofoL 1,000 mg In 100.000 390.105 Empty Bag 1 bag @ Titrate IV .Q0M JORDANA Rx#: [id number] Tube Feeding 308 276 46 Other 60 90 30 Output: Urine 15 25 0 Other: Voiding Method Indwelling Catheter Indwelling Catheter # Bowel Movements 1 ABP, PAP, CO, CI - Last Documented Arterial Blood Pressure 117/73 - Exam synchronous a mechanical ventilator. Orogastric and orotracheal tube are both in place. Unresponsive, currently on a combination of propofol and fentanyl. Calm and comfortable. Unresponsive. Head exam was generally normal. There was no scleral icterus or corneal arcus. Mucous membranes were moist. Neck was supple and without jugular venous distension, thyromegaly, or carotid bruits. Carotids were easily palpable bilaterally. There was no adenopathy. Lungs were clear to auscultation and percussion, and with normal diaphragmatic excursion. No wheezes or rales were noted. Cardiac exam revealed the PMI to be normally situated and sized. The rhythm was regular and no extrasystoles were noted during several minutes of auscultation. The first and second heart sounds were normal and physiologic splitting of the second heart sound was noted. There were no murmurs, rubs, clicks, or gallops. Abdominal exam revealed normal bowel sounds. The abdomen was soft, non-tender, and without masses, organomegaly, or appreciable enlargement of the abdominal aorta. Examination of the extremities revealed easily palpable radial, femoral and pedal pulses. There was no cyanosis, clubbing or edema.The patient has a temporary dialysis catheter in the left femoral vein neurologically, the examination is limited as the patient is currently on that the propofol. The sedation will be discontinued and the patient's condition will be reevaluated. No response to any painful stimulation. Reflexes are +1 and symmetrical and plantars are downgoing. Motor function cannot be assessed. Pupils are reactive to light. There is positive cough and gag reflex at this point in time. - Labs CBC & Chem 7: 09/27/20 03:55 09/27/20 03:55 Labs: Abnormal Lab Results - Last 24 Hours (Table) 09/26/20 09/26/20 09/26/20 Range/Units 12:20 17:19 18:29 WBC (3.8-10.6) k/uL RBC (4.30-5.90) m/uL Hgb (13.0-17.5) gm/dL Hct (39.0-53.0) % ABG pCO2 32 L 34 L (35-45) mmHg ABG pO2 76 L 62 L (83-108) mmHg ABG HCO3 19 L (21-25) mmol/L ABG O2 Saturation 90.3 L (94-97) % Sodium (137-145) mmol/L Chloride (98-107) mmol/L Carbon Dioxide (22-30) mmol/L BUN (9-20) mg/dL Creatinine (0.66-1.25) mg/dL Glucose (74-99) mg/dL POC Glucose (mg/dL) 102 H (75-99) mg/dL Calcium (8.4-10.2) mg/dL Phosphorus (2.5-4.5) mg/dL 09/26/20 09/26/20 09/27/20 Range/Units 19:36 23:55 03:55 WBC 15.2 H (3.8-10.6) k/uL RBC 2.88 L (4.30-5.90) m/uL Hgb 9.9 L (13.0-17.5) gm/dL Hct 26.8 L (39.0-53.0) % ABG pCO2 (35-45) mmHg ABG pO2 (83-108) mmHg ABG HCO3 (21-25) mmol/L ABG O2 Saturation (94-97) % Sodium 135 L (137-145) mmol/L Chloride (98-107) mmol/L Carbon Dioxide 19 L (22-30) mmol/L BUN 59 H (9-20) mg/dL Creatinine 7.26 H* (0.66-1.25) mg/dL Glucose 102 H (74-99) mg/dL POC Glucose (mg/dL) 108 H (75-99) mg/dL Calcium 7.4 L (8.4-10.2) mg/dL Phosphorus (2.5-4.5) mg/dL 09/27/20 09/27/20 Range/Units 03:55 05:06 WBC (3.8-10.6) k/uL RBC (4.30-5.90) m/uL Hgb (13.0-17.5) gm/dL Hct (39.0-53.0) % ABG pCO2 (35-45) mmHg ABG pO2 129 H (83-108) mmHg ABG HCO3 (21-25) mmol/L ABG O2 Saturation 98.5 H (94-97) % Sodium 133 L (137-145) mmol/L Chloride 97 L (98-107) mmol/L Carbon Dioxide 20 L (22-30) mmol/L BUN 66 H (9-20) mg/dL Creatinine 7.58 H* (0.66-1.25) mg/dL Glucose (74-99) mg/dL POC Glucose (mg/dL) (75-99) mg/dL Calcium 7.6 L (8.4-10.2) mg/dL Phosphorus 11.7 H* (2.5-4.5) mg/dL Assessment and Plan Plan: 1 V. fib cardiac arrest,, secondary to ST segment elevation myocardial infarction, status post cardiac catheterization and stenting of the circumflex coronary artery, status post basement removal of a Impala device. For now, the patient is in a normal sinus rhythm. Hemodynamically stable on no pressors. He has developed significant cardiomyopathy with impaired LV function and an eje ction fraction of less than 20%. Echocardiogram. Yesterday and still showing impaired LV function with poor ejection fraction. The patient is having short runs of atrial fibrillation for that reason the patient is demented on amiodarone drip at 1 mg per minute. He is post cardiac catheterization and stenting of the circumflex coronary artery. 2 acute hypoxic respiratory failure secondary to above, remains intubated on a mechanical ventilator, with a suspicion of a right lower lobe pneumonia based on today's chest x-ray and some mild leukocytosis. The patient will be covered with appropriate antibiotics. 3 anoxic encephalopathy post cardiac arrest, this was suspected clinically, however, on yesterday's evaluation, the patient was given a sedation holiday he got to a point where he was following some simple commands. 4 severe ischemic cardiomyopathy with an ejection fraction of less than 20% 5 acute kidney injury secondary to cardiac arrest induced ATN. Currently on hemodialysis, the patient remains oliguric 6 shock liver, improving 7 paroxysmal atrial fibrillation, current rhythm is sinus and is on amiodarone drip at 1 mg per minute 8 left bundle branch block pattern, current rhythm is sinus 9 hypothyroidism 10 history of hypertension 11 anion gap metabolic acidosis secondary to above 12 fluid overload with extensive edema in the lower extremities and upper ex tremities in the scrotum. 13 rash 14 diminished pulses in lower extremity especially in the right foot with Doppler signal is present. Obviously there is some ischemic changes in the right foot, this is consistent with arterial vascular insufficiency. Vascular surgery will be asked to evaluate the patient. Plan Continue ventilator support No ventilator changes for today sputum samples for Gram stain culture IV Zosyn as an empiric antibiotic coverage IV heparin regarding paroxysmal atrial fibrillation Vascular surgery evaluation regarding the diminished pulses in lower extremity especially in the right foot and an arterial Doppler was also obtained by cardiology Continue IV amiodarone Continue aspirin and Plavix propofol for sadation Update the family on his condition Hemodialysis today Enteral feeding for nutritional support We'll continue to follow make further recommendations based on his progress. Critically care evaluation that was on a more than 30 minutes Time with Patient: Greater than 30
[2020-09-27] MEDS ORDERED: HEPARIN SOD,PORK IN 0.45% NACL 25,000 UNIT in 0.45% NACL 1 250ML.BAG IV SCH (09:15)
[2020-09-27] MEDS ORDERED: PIPERACILLIN-TAZOBACTAM 3.375 GM in SODIUM CHLORIDE 0.9% 100 ML IVPB SCH (09:30)
[2020-09-27] MEDS: SODIUM CHLORIDE 0.9% 500 ML IV SCH (09:31)
--- NOTE | 2020-09-27 10:26 | PN ---
PROGRESS NOTE Moreno is a 59-year-old gentleman who is admitted to the hospital with acute myocardial infarction. He remains on the vent in atrial fibrillation. This morning patient has developed acute ischemic foot on the right side. The patient had atrial fibrillation and was on IV heparin that was stopped secondary to low hemoglobin and thrombocytopenia. Currently, he is in sinus rhythm on IV amiodarone. Remains in renal failure. Platelet count has improved to 270. Still anemic at 9.9, but does not have any active ongoing bleeding. When he first presented his hemoglobin was 15.2. PHYSICAL EXAMINATION: Heart rate is around 100 beats per minute, blood pressure is 140/89, respiratory rate is 26. Chest exam reveals diminished air entry at the bases. Heart exam reveals first and second heart sounds, irregular rhythm. Abdomen is soft. Exam of extremities reveals bilateral pitting edema. On the left side the dorsalis pedis is palpable and on the right side it is not. The foot is cold. ASSESSMENT: 1. Status post cardiac arrest. 2. Vent requiring respiratory failure. 3. Paroxysmal atrial fibrillation. 4. Renal failure. 5. Acute ischemic leg. PLAN: I will start the patient on Eliquis 2.5 b.i.d. as he became thrombocytopenic following his IV heparin on his initial presentation. We will use Eliquis. Obtain an arterial duplex of the right foot and then will decide on further course of action. MMODL / IJN: [id number] /
--- NOTE | 2020-09-27 11:01 | P.PN ---
Subjective Progress Note Date: 09/27/20 Patient's overall condition is significantly worse today. He is back on full support on the ventilator. He also had a low-grade fever this morning. He is currently sedated. Objective - Vital Signs Vital signs: Vital Signs Temp 100.2 F H 09/27/20 08:00 Pulse 102 H 09/27/20 10:00 Resp 28 H 09/27/20 10:00 BP 140/88 09/27/20 10:00 Pulse Ox 95 09/27/20 10:00 Intake & Output 09/26/20 09/27/20 09/27/20 18:59 06:59 18:59 Intake Total 7590.847 6017.130 178 Output Total 15 25 13 Balance 8373.679 2416.130 165 Weight 142.8 kg 156.8 kg Intake: IV 156 156 52 0.9 Normal Saline 36 36 12 Pressure Bag Sodium Chloride 0.9% 1, 120 120 40 000 ml @ 10 mls/hr IV . Q24H JORDANA Rx#:[id number] Intake, IV Titration 591.912 857.130 Amount Amiodarone 360 mg In 389.998 379.996 Dextrose 5% in Water 200 ml @ 1 MG/MIN 33.333 mls/ hr IV .Q6H JORDANA Rx#: [id number] Clevidipine Butyrate 25 10.700 mg In Empty Bag 1 bag @ 1 MG/HR 2 mls/hr IV .Q24H JORDANA Rx#:[id number] Dexmedetomidine/0.9% NaCl 91.214 87.029 (Pmx) 400 mcg In Empty Bag 1 bag @ Titrate IV . Q0M JORDANA Rx#:[id number] propofoL 1,000 mg In 100.000 390.105 Empty Bag 1 bag @ Titrate IV .Q0M JORDANA Rx#: [id number] Tube Feeding 308 276 96 Other 60 90 30 Output: Urine 15 25 13 Other: Voiding Method Indwelling Catheter Indwelling Catheter Indwelling Catheter # Bowel Movements 1 ABP, PAP, CO, CI - Last Documented Arterial Blood Pressure 132/78 - Exam General: The patient is sedated and intubated Eye: there is normal conjunctiva bilaterally. Neck: The neck is supple, there is no JVD. Cardiovascular: Normal S1-S2, no S3-S4, no murmurs. Respiratory: Lungs with mechanical ventilator sounds Gastrointestinal: Abdomen is soft, nontender Musculoskeletal: There is evidence of anasarca up to the abdomen. Skin: Skin is warm and dry - Labs CBC & Chem 7: 09/27/20 03:55 09/27/20 03:55 Labs: Abnormal Lab Results - Last 24 Hours (Table) 09/26/20 09/26/20 09/26/20 Range/Units 12:20 17:19 18:29 WBC (3.8-10.6) k/uL RBC (4.30-5.90) m/uL Hgb (13.0-17.5) gm/dL Hct (39.0-53.0) % ABG pCO2 32 L 34 L (35-45) mmHg ABG pO2 76 L 62 L (83-108) mmHg ABG HCO3 19 L (21-25) mmol/L ABG O2 Saturation 90.3 L (94-97) % Sodium (137-145) mmol/L Chloride (98-107) mmol/L Carbon Dioxide (22-30) mmol/L BUN (9-20) mg/dL Creatinine (0.66-1.25) mg/dL Glucose (74-99) mg/dL POC Glucose (mg/dL) 102 H (75-99) mg/dL Calcium (8.4-10.2) mg/dL Phosphorus (2.5-4.5) mg/dL 09/26/20 09/26/20 09/27/20 Range/Units 19:36 23:55 03:55 WBC 15.2 H (3.8-10.6) k/uL RBC 2.88 L (4.30-5.90) m/uL Hgb 9.9 L (13.0-17.5) gm/dL Hct 26.8 L (39.0-53.0) % ABG pCO2 (35-45) mmHg ABG pO2 (83-108) mmHg ABG HCO3 (21-25) mmol/L ABG O2 Saturation (94-97) % Sodium 135 L (137-145) mmol/L Chloride (98-107) mmol/L Carbon Dioxide 19 L (22-30) mmol/L BUN 59 H (9-20) mg/dL Creatinine 7.26 H* (0.66-1.25) mg/dL Glucose 102 H (74-99) mg/dL POC Glucose (mg/dL) 108 H (75-99) mg/dL Calcium 7.4 L (8.4-10.2) mg/dL Phosphorus (2.5-4.5) mg/dL 09/27/20 09/27/20 Range/Units 03:55 05:06 WBC (3.8-10.6) k/uL RBC (4.30-5.90) m/uL Hgb (13.0-17.5) gm/dL Hct (39.0-53.0) % ABG pCO2 (35-45) mmHg ABG pO2 129 H (83-108) mmHg ABG HCO3 (21-25) mmol/L ABG O2 Saturation 98.5 H (94-97) % Sodium 133 L (137-145) mmol/L Chloride 97 L (98-107) mmol/L Carbon Dioxide 20 L (22-30) mmol/L BUN 66 H (9-20) mg/dL Creatinine 7.58 H* (0.66-1.25) mg/dL Glucose (74-99) mg/dL POC Glucose (mg/dL) (75-99) mg/dL Calcium 7.6 L (8.4-10.2) mg/dL Phosphorus 11.7 H* (2.5-4.5) mg/dL Assessment and Plan Assessment: Patient is a 59-year-old male with a history of hypertension, hypothyroidism, and obesity who presented to the ER after cardiac arrest in the field. He had multiple rounds of CPR, Epi, and Defib prior to obtaining ROSC. It appears that his down time in the field was approximately 30 minutes on review of the EMS run sheet. He was intubated and sedated he underwent a left heart cath with stent to the LAD and impella placement. Echocardiogram demonstrated an EF of less than 20% with global hypokenesis. He was determined to be in cardiogenic shock requiring dopamine, dobutamine, and levophed. He has required a Nimbex drip to maintain adequate ventilation until 09/20/20. He demonstrated shock liver on arrival. He has also had progressive anuric renal failure, nephrology was consulted HD was initiated on 09/21/20. He had one abnormal EEG with worsening of EEG on 09/20/20. We have been unable to wean sedation due to agitation and there are concerns for severe anoxic encephalopathy. His CXR was worsening and procalcitonin was elevated and he was started on zosyn with concerns for possible underlying PNA. He had not been awake or following commands with sedation holidays. Below is the list list of his medical problems addressed during this hospitalization V. fib arrest due to ST segment elevated myocardial infarction status post PCI to the circumflex and impella placement Acute systolic congestive heart failure Ischemic cardiomyopathy with ejection fraction less than 20% Cardiogenic shock Cold and mottled right foot - dopamine off 09/23/20, dobutamine, levophed off by 09/22/20 - cardio following closely - ASA, Plavix, lipitor - Arterial duplex and vascular consultation Paroxysmal atrial fibrillation requiring IV amiodarone. Cardiology following closely Hypoxic/Anoxic encephalopathy - neuro recs - continue with sedation holidays - CT head with no acute findings Acute kidney injury secondary to hypoperfusion and likely ATN requiring hemodialysis Hyperphosphatemia Hyperkalemia - nephrology following closely -PhosLo 3 times a day - Avoid nephrotoxic agents - maintain map >65 Acute hypoxic respiratory failure Pneumonia possible gram negative, completed treatment - Zosyn IV started on September 27 - pulm recs following closely Anemia - Thrombocytopenia - follow CBC - no indication for transfusion at this point in time. Generalized Dermatitis, improved with IV steroids Morbid obesity with BMI 37.7 Shock liver, resolved Poor overall prognosis. DVT prophylaxis: heparin Discussed with: nursing A total of 35 minutes was spent on the care of this complex patient more than 50% of the time was spent in counseling and care coordination.
[2020-09-27] MEDS ORDERED: LACTULOSE 20 GM/30 ML CUP PO PRN (11:10)
[2020-09-27] MEDS ORDERED: bisacodyL 10 MG SUPP RECTAL PRN (11:11)
[2020-09-27 11:24] LABS: Glucose,Whole Blood 105 mg/dL (75-99)
--- NOTE | 2020-09-27 13:25 | P.GSCN ---
History of Present Illness Consult date: 09/27/20 Reason for Consult: Respiratory failure History of present illness: 59-year-old male has been on the ventilator for the last 10 days. Patient was a cardiac arrest. Recent sedation holiday revealed return of neurologic function. Patient tolerating tube feeds. We were consulted for tracheostomy and PEG tube placement given inability to wean. Review of Systems ROS unobtainable: due to endotracheal tube Past Medical History Past Medical History: Atrial Fibrillation, Hypertension, Myocardial Infarction ([place]), Osteoarthritis (OA), Thyroid Disorder Additional Past Medical History / Comment(s): Hypothyroid Last Myocardial Infarction Date:: 09/17/20 History of Any Multi-Drug Resistant Organisms: Unobtainable Past Surgical History: No Surgical Hx Reported Past Psychological History: Unable to Obtain Smoking Status: Unknown if ever smoked Past Alcohol Use History: Unable to Obtain Past Drug Use History: Unable to Obtain Medications and Allergies Home Medications Medication Instructions Recorded Confirmed Type Acetaminophen/Diphenhydramine 2 tab PO HS 09/17/20 09/17/20 History [Tylenol PM 500-25mg] Levothyroxine Sodium [Synthroid] 50 mcg PO DAILY 09/17/20 09/17/20 History Lisinopril-Hctz 20-12.5 mg 1 tab PO DAILY 09/17/20 09/17/20 History [Zestoretic 20-12.5] Meloxicam [Mobic] 7.5 mg PO DAILY 09/17/20 09/17/20 History Allergies Allergy/AdvReac Type Severity Reaction Status Date / Time No Known Allergies Allergy Unverified 09/17/20 09:18 Surgical - Exam Vital Signs Pulse Ox 71 L 09/17/20 01:31 Physical exam: General: Well-developed, well-nourished HEENT: Normocephalic, sclerae nonicteric Abdomen: Obese, mildly distended, nontender Extremities: bilateral lower extremity edema Neuro: Sedated on ventilator Results - Labs 09/27/20 03:55 09/27/20 03:55 Abnormal Lab Results - Last 24 Hours (Table) 09/26/20 09/26/20 09/26/20 Range/Units 17:19 18:29 19:36 WBC (3.8-10.6) k/uL RBC (4.30-5.90) m/uL Hgb (13.0-17.5) gm/dL Hct (39.0-53.0) % ABG pCO2 34 L (35-45) mmHg ABG pO2 62 L (83-108) mmHg ABG O2 Saturation 90.3 L (94-97) % Sodium 135 L (137-145) mmol/L Chloride (98-107) mmol/L Carbon Dioxide 19 L (22-30) mmol/L BUN 59 H (9-20) mg/dL Creatinine 7.26 H* (0.66-1.25) mg/dL Glucose 102 H (74-99) mg/dL POC Glucose (mg/dL) 102 H (75-99) mg/dL Calcium 7.4 L (8.4-10.2) mg/dL Phosphorus (2.5-4.5) mg/dL 09/26/20 09/27/20 09/27/20 Range/Units 23:55 03:55 03:55 WBC 15.2 H (3.8-10.6) k/uL RBC 2.88 L (4.30-5.90) m/uL Hgb 9.9 L (13.0-17.5) gm/dL Hct 26.8 L (39.0-53.0) % ABG pCO2 (35-45) mmHg ABG pO2 (83-108) mmHg ABG O2 Saturation (94-97) % Sodium 133 L (137-145) mmol/L Chloride 97 L (98-107) mmol/L Carbon Dioxide 20 L (22-30) mmol/L BUN 66 H (9-20) mg/dL Creatinine 7.58 H* (0.66-1.25) mg/dL Glucose (74-99) mg/dL POC Glucose (mg/dL) 108 H (75-99) mg/dL Calcium 7.6 L (8.4-10.2) mg/dL Phosphorus 11.7 H* (2.5-4.5) mg/dL 09/27/20 09/27/20 Range/Units 05:06 11:23 WBC (3.8-10.6) k/uL RBC (4.30-5.90) m/uL Hgb (13.0-17.5) gm/dL Hct (39.0-53.0) % ABG pCO2 (35-45) mmHg ABG pO2 129 H (83-108) mmHg ABG O2 Saturation 98.5 H (94-97) % Sodium (137-145) mmol/L Chloride (98-107) mmol/L Carbon Dioxide (22-30) mmol/L BUN (9-20) mg/dL Creatinine (0.66-1.25) mg/dL Glucose (74-99) mg/dL POC Glucose (mg/dL) 105 H (75-99) mg/dL Calcium (8.4-10.2) mg/dL Phosphorus (2.5-4.5) mg/dL Diabetes panel 09/26/20 09/27/20 Range/Units 19:36 03:55 Sodium 135 L 133 L (137-145) mmol/L Potassium 4.7 5.1 (3.5-5.1) mmol/L Chloride 99 97 L (98-107) mmol/L Carbon Dioxide 19 L 20 L (22-30) mmol/L BUN 59 H 66 H (9-20) mg/dL Creatinine 7.26 H* 7.58 H* (0.66-1.25) mg/dL Glucose 102 H 92 (74-99) mg/dL Calcium 7.4 L 7.6 L (8.4-10.2) mg/dL Calcium panel 09/26/20 09/27/20 Range/Units 19:36 03:55 Calcium 7.4 L 7.6 L (8.4-10.2) mg/dL Phosphorus 11.7 H* (2.5-4.5) mg/dL Pituitary panel 09/26/20 09/27/20 Range/Units 19:36 03:55 Sodium 135 L 133 L (137-145) mmol/L Potassium 4.7 5.1 (3.5-5.1) mmol/L Chloride 99 97 L (98-107) mmol/L Carbon Dioxide 19 L 20 L (22-30) mmol/L BUN 59 H 66 H (9-20) mg/dL Creatinine 7.26 H* 7.58 H* (0.66-1.25) mg/dL Glucose 102 H 92 (74-99) mg/dL Calcium 7.4 L 7.6 L (8.4-10.2) mg/dL Adrenal panel 09/26/20 09/27/20 Range/Units 19:36 03:55 Sodium 135 L 133 L (137-145) mmol/L Potassium 4.7 5.1 (3.5-5.1) mmol/L Chloride 99 97 L (98-107) mmol/L Carbon Dioxide 19 L 20 L (22-30) mmol/L BUN 59 H 66 H (9-20) mg/dL Creatinine 7.26 H* 7.58 H* (0.66-1.25) mg/dL Glucose 102 H 92 (74-99) mg/dL Calcium 7.4 L 7.6 L (8.4-10.2) mg/dL Assessment and Plan (1) Acute respiratory failure Narrative/Plan: 59-year-old male with ventilatory dependence after recent cardiac arrest. Will discuss further with family regarding tracheostomy and PEG tube placement. Current Visit: Yes Status: Acute Code(s): J96.00 - ACUTE RESPIRATORY FAILURE, UNSP W HYPOXIA OR HYPERCAPNIA SNOMED Code(s): 25620414
--- NOTE | 2020-09-27 14:22 | P.GSCN ---
History of Present Illness Consult date: 09/27/20 Reason for Consult: Acute left lower extremity ischemia Requesting physician: Imelda Fisher History of present illness: 59-year-old white male who presented to the emergency department on September 17 and cardiac arrest. He has a past medical history including atrial fibrillation, hyperlipidemia, thyroid disorder and hypertension. He was taken for a cardiac catheterization, stent placement and impella on 09/17/2020, approach from right femoral vein. He was taken back for impella removal on 09/18/2020. He has been intubated and sedated since admission. Today during his exam his nurse found that his right foot had some discoloration, mottling, cool to the touch, and nonpalpable dorsalis pedis pulse therefore vascular surgery was consulted. He is currently on an amiodarone drip, levophed and will be started on a low dose heparin drip. Review of Systems ROS unobtainable: due to endotracheal tube Past Medical History Past Medical History: Atrial Fibrillation, Hypertension, Myocardial Infarction ([place]), Osteoarthritis (OA), Thyroid Disorder Additional Past Medical History / Comment(s): Hypothyroid Last Myocardial Infarction Date:: 09/17/20 History of Any Multi-Drug Resistant Organisms: Unobtainable Past Surgical History: No Surgical Hx Reported Past Psychological History: Unable to Obtain Smoking Status: Unknown if ever smoked Past Alcohol Use History: Unable to Obtain Past Drug Use History: Unable to Obtain Medications and Allergies Home Medications Medication Instructions Recorded Confirmed Type Acetaminophen/Diphenhydramine 2 tab PO HS 09/17/20 09/17/20 History [Tylenol PM 500-25mg] Levothyroxine Sodium [Synthroid] 50 mcg PO DAILY 09/17/20 09/17/20 History Lisinopril-Hctz 20-12.5 mg 1 tab PO DAILY 09/17/20 09/17/20 History [Zestoretic 20-12.5] Meloxicam [Mobic] 7.5 mg PO DAILY 09/17/20 09/17/20 History Allergies Allergy/AdvReac Type Severity Reaction Status Date / Time No Known Allergies Allergy Unverified 09/17/20 09:18 Surgical - Exam Vital Signs Pulse Ox 71 L 09/17/20 01:31 General appearance: The patient is sedated and intubated. HET: Head is normocephalic and atraumatic. Neck: Supple without lymphadenopathy. Trachea midline. Heart: S1 S2. Regular rate and rhythm. Lungs: Clear to auscultation, on mechanical ventilation. Abdomen: Soft, obese, edema, nontender, nondistended. Extremities: Bilateral lower extremities with edema, right foot cool to touch, mottling noted on plantar aspect of right foot. Nonpalpable dorsalis pedis or posterior tibialis pulse. Right groin with edema, access site clean dry and intact without any signs of hematoma, multiphasic femoral, popliteal, posterior tibialis, and dorsalis pedis Doppler signal. Left lower extremity warm to the touch, normal color and turgor, good capillary refill, and palpable dorsalis pedis pulse. Neurological: Sedated and intubated. Results - Labs 09/27/20 03:55 09/27/20 03:55 Abnormal Lab Results - Last 24 Hours (Table) 09/26/20 09/26/20 09/26/20 Range/Units 17:19 18:29 19:36 WBC (3.8-10.6) k/uL RBC (4.30-5.90) m/uL Hgb (13.0-17.5) gm/dL Hct (39.0-53.0) % ABG pCO2 34 L (35-45) mmHg ABG pO2 62 L (83-108) mmHg ABG O2 Saturation 90.3 L (94-97) % Sodium 135 L (137-145) mmol/L Chloride (98-107) mmol/L Carbon Dioxide 19 L (22-30) mmol/L BUN 59 H (9-20) mg/dL Creatinine 7.26 H* (0.66-1.25) mg/dL Glucose 102 H (74-99) mg/dL POC Glucose (mg/dL) 102 H (75-99) mg/dL Calcium 7.4 L (8.4-10.2) mg/dL Phosphorus (2.5-4.5) mg/dL 09/26/20 09/27/20 09/27/20 Range/Units 23:55 03:55 03:55 WBC 15.2 H (3.8-10.6) k/uL RBC 2.88 L (4.30-5.90) m/uL Hgb 9.9 L (13.0-17.5) gm/dL Hct 26.8 L (39.0-53.0) % ABG pCO2 (35-45) mmHg ABG pO2 (83-108) mmHg ABG O2 Saturation (94-97) % Sodium 133 L (137-145) mmol/L Chloride 97 L (98-107) mmol/L Carbon Dioxide 20 L (22-30) mmol/L BUN 66 H (9-20) mg/dL Creatinine 7.58 H* (0.66-1.25) mg/dL Glucose (74-99) mg/dL POC Glucose (mg/dL) 108 H (75-99) mg/dL Calcium 7.6 L (8.4-10.2) mg/dL Phosphorus 11.7 H* (2.5-4.5) mg/dL 09/27/20 09/27/20 Range/Units 05:06 11:23 WBC (3.8-10.6) k/uL RBC (4.30-5.90) m/uL Hgb (13.0-17.5) gm/dL Hct (39.0-53.0) % ABG pCO2 (35-45) mmHg ABG pO2 129 H (83-108) mmHg ABG O2 Saturation 98.5 H (94-97) % Sodium (137-145) mmol/L Chloride (98-107) mmol/L Carbon Dioxide (22-30) mmol/L BUN (9-20) mg/dL Creatinine (0.66-1.25) mg/dL Glucose (74-99) mg/dL POC Glucose (mg/dL) 105 H (75-99) mg/dL Calcium (8.4-10.2) mg/dL Phosphorus (2.5-4.5) mg/dL Diabetes panel 09/26/20 09/27/20 Range/Units 19:36 03:55 Sodium 135 L 133 L (137-145) mmol/L Potassium 4.7 5.1 (3.5-5.1) mmol/L Chloride 99 97 L (98-107) mmol/L Carbon Dioxide 19 L 20 L (22-30) mmol/L BUN 59 H 66 H (9-20) mg/dL Creatinine 7.26 H* 7.58 H* (0.66-1.25) mg/dL Glucose 102 H 92 (74-99) mg/dL Calcium 7.4 L 7.6 L (8.4-10.2) mg/dL Calcium panel 09/26/20 09/27/20 Range/Units 19:36 03:55 Calcium 7.4 L 7.6 L (8.4-10.2) mg/dL Phosphorus 11.7 H* (2.5-4.5) mg/dL Pituitary panel 09/26/20 09/27/20 Range/Units 19:36 03:55 Sodium 135 L 133 L (137-145) mmol/L Potassium 4.7 5.1 (3.5-5.1) mmol/L Chloride 99 97 L (98-107) mmol/L Carbon Dioxide 19 L 20 L (22-30) mmol/L BUN 59 H 66 H (9-20) mg/dL Creatinine 7.26 H* 7.58 H* (0.66-1.25) mg/dL Glucose 102 H 92 (74-99) mg/dL Calcium 7.4 L 7.6 L (8.4-10.2) mg/dL Adrenal panel 09/26/20 09/27/20 Range/Units 19:36 03:55 Sodium 135 L 133 L (137-145) mmol/L Potassium 4.7 5.1 (3.5-5.1) mmol/L Chloride 99 97 L (98-107) mmol/L Carbon Dioxide 19 L 20 L (22-30) mmol/L BUN 59 H 66 H (9-20) mg/dL Creatinine 7.26 H* 7.58 H* (0.66-1.25) mg/dL Glucose 102 H 92 (74-99) mg/dL Calcium 7.4 L 7.6 L (8.4-10.2) mg/dL Assessment and Plan Assessment: 1. Lower extremity ischemia 2. Cardiac arrest, status post cardiac catheterization and stenting of circumflexs and impella placement via right femoral vein access 3. Acute hypoxic respiratory failure intubated on mechanical ventilator 4. Acute renal failure on hemodialysis 5. Severe ischemic cardiomyopathy with ejection fraction less than 20% 6. History atrial fibrillation 7. Hypertension 8. Hyperlipidemia Plan: 1. Continue supportive care 2. Right lower extremity arterial doppler study ordered 3. Continue current ICU and medical management 4. Further recommendations to follow Thank you for this consultation and allowing us take part in the plan of care of your patient during his hospital stay The impression and plan of care has been dictated as directed. I performed a history and examination of this patient, discussed the same with the dictator. I agree with the dictator's note ,documented as a scribe. Any additional findings or plans will be noted.
--- NOTE | 2020-09-27 15:57 | P.PN ---
Subjective Progress Note Date: 09/27/20 Per the patient nurse yesterday upon having the patient on sedation holiday patient was following some simple commands. Yesterday he was on Precedex. But late at night yesterday the patient the started the desating as a result propofol IV drip was restarted. He is on IV Propofol 45mcg/kg/min. Objective - Vital Signs Vital signs: Vital Signs Temp 100.3 F H 09/27/20 12:00 Pulse 104 H 09/27/20 15:50 Resp 29 H 09/27/20 15:00 BP 138/61 09/27/20 14:00 Pulse Ox 94 L 09/27/20 15:00 Intake & Output 09/26/20 09/27/20 09/27/20 18:59 06:59 18:59 Intake Total 3205.344 9065.130 756.404 Output Total 15 25 36 Balance 2356.592 4368.130 720.404 Weight 142.8 kg 156.8 kg Intake: IV 156 156 117 0.9 Normal Saline 36 36 27 Pressure Bag Sodium Chloride 0.9% 1, 120 120 90 000 ml @ 10 mls/hr IV . Q24H JORDANA Rx#:[id number] Intake, IV Titration 591.912 857.130 361.404 Amount Amiodarone 360 mg In 389.998 379.996 200 Dextrose 5% in Water 200 ml @ 1 MG/MIN 33.333 mls/ hr IV .Q6H JORDANA Rx#: [id number] Clevidipine Butyrate 25 10.700 mg In Empty Bag 1 bag @ 1 MG/HR 2 mls/hr IV .Q24H JORDANA Rx#:[id number] Dexmedetomidine/0.9% NaCl 91.214 87.029 (Pmx) 400 mcg In Empty Bag 1 bag @ Titrate IV . Q0M [facility] Rx#:[id number] propofoL 1,000 mg In 100.000 390.105 161.404 Empty Bag 1 bag @ Titrate IV .Q0M JORDANA Rx#: [id number] Tube Feeding 308 276 188 Other 60 90 90 Output: Urine 15 25 36 Other: Voiding Method Indwelling Catheter Indwelling Catheter Indwelling Catheter # Bowel Movements 1 ABP, PAP, CO, CI - Last Documented Arterial Blood Pressure 133/83 - Exam GENERAL: The patient is lying in bed, obese and does not seem in acute distress. LUNG: Clear to auscultation bilaterally no wheezing noted throughout. Not labored breathing. He is intubated and on ventilator. NEUROLOGICAL: Is limited since is on IV propofol 45mcg/kg/min. Higher mental function: The patient is comatose GCS 3 (E1, VT1, M1). Not waking up or verbalizing or following commands. Cranial nerves: Had to manually open his eyes. The primary gaze is midline. The pupils are round, equal and reactive to light. The pupils are around 3-4mm bilaterally. +ve corneal reflex bilaterally. No facial weakness noted. Positive gag reflex. Is breathing over the vent. Motor: Gait is deferred because of condition. The strength is hard to assess but not withdrawing to any of extremities to painful stimuli. Normal tone and bulk. No spontaneous movement. Cerebellum: Could not assess. Sensation: He frowns to painful stimuli throughout. Reflexes (right/left): 1+ throughout. Plantars are downgoing bilaterally. IMAGING/OTHER TESTS CT of the head on 09/26/2020 ordered by the ICU team is reported as age-related atrophic and chronic small vessel ischemic change without acute intracranial process seen at this time. Limited 2-D echo toay was reported as left ventricle is mildly dilated. Modera te concentric left ventricular hypertrophy. Overall left ventricle systolic function is severely impaired with ejection fraction of 20-25%. Global hypokinesis - Labs CBC & Chem 7: 09/27/20 03:55 09/27/20 03:55 Labs: Abnormal Lab Results - Last 24 Hours (Table) 09/26/20 09/26/20 09/26/20 Range/Units 17:19 18:29 19:36 WBC (3.8-10.6) k/uL RBC (4.30-5.90) m/uL Hgb (13.0-17.5) gm/dL Hct (39.0-53.0) % ABG pCO2 34 L (35-45) mmHg ABG pO2 62 L (83-108) mmHg ABG O2 Saturation 90.3 L (94-97) % Sodium 135 L (137-145) mmol/L Chloride (98-107) mmol/L Carbon Dioxide 19 L (22-30) mmol/L BUN 59 H (9-20) mg/dL Creatinine 7.26 H* (0.66-1.25) mg/dL Glucose 102 H (74-99) mg/dL POC Glucose (mg/dL) 102 H (75-99) mg/dL Calcium 7.4 L (8.4-10.2) mg/dL Phosphorus (2.5-4.5) mg/dL 09/26/20 09/27/20 09/27/20 Range/Units 23:55 03:55 03:55 WBC 15.2 H (3.8-10.6) k/uL RBC 2.88 L (4.30-5.90) m/uL Hgb 9.9 L (13.0-17.5) gm/dL Hct 26.8 L (39.0-53.0) % ABG pCO2 (35-45) mmHg ABG pO2 (83-108) mmHg ABG O2 Saturation (94-97) % Sodium 133 L (137-145) mmol/L Chloride 97 L (98-107) mmol/L Carbon Dioxide 20 L (22-30) mmol/L BUN 66 H (9-20) mg/dL Creatinine 7.58 H* (0.66-1.25) mg/dL Glucose (74-99) mg/dL POC Glucose (mg/dL) 108 H (75-99) mg/dL Calcium 7.6 L (8.4-10.2) mg/dL Phosphorus 11.7 H* (2.5-4.5) mg/dL 09/27/20 09/27/20 Range/Units 05:06 11:23 WBC (3.8-10.6) k/uL RBC (4.30-5.90) m/uL Hgb (13.0-17.5) gm/dL Hct (39.0-53.0) % ABG pCO2 (35-45) mmHg ABG pO2 129 H (83-108) mmHg ABG O2 Saturation 98.5 H (94-97) % Sodium (137-145) mmol/L Chloride (98-107) mmol/L Carbon Dioxide (22-30) mmol/L BUN (9-20) mg/dL Creatinine (0.66-1.25) mg/dL Glucose (74-99) mg/dL POC Glucose (mg/dL) 105 H (75-99) mg/dL Calcium (8.4-10.2) mg/dL Phosphorus (2.5-4.5) mg/dL Assessment and Plan Assessment: * Hypoxic/anoxic encephalopathy status post cardiac arrest. On sedation holiday he will follow some simple commands. * A-fib with RVR * Electrolyte imbalance (hyponatremia 128, hypocalcemia 7.1 and hyperkalemia) * Status post out of the Hospital cardio pulmonary arrest, secondary to ST segment elevation myocardial infarction status post cardiopulmonary resuscitation with return responses circulation and stent placement in the circumflex coronary artery * Cardiogenic shock * Severe ischemic cardiomyopathy (with EF <20%) * Acute kidney injury with initiation of hemodialysis * History of hypertension * History of hypertelorism Plan: We'll defer the electrolytes and imbalance correction to the nephrology team as well as ICU/primary team. Cardiology is on board. Nephrology is on board Cardiology is on board Will defer the rest of the medical management to the ICU team and primary team. The condition is very guarded. He follows some simple commands on sedation holidays. The plan is discussed with his nurse. Will follow-up with the patient sporadically. Fadi Johnson MD Neuro-Hospitalist Time with Patient: Less than 30
--- NOTE | 2020-09-27 15:59 | XR ---
EXAMINATION TYPE: XR chest 1V portable DATE OF EXAM: 09/27/2020 Comparison: 09/27/2020 Clinical History: 59-year-old male triple lumen insertion Findings: ET tube satisfactory. NG tube courses below the diaphragm beyond the [id number]. Left PICC tip johny r the upper to mid SVC level. Left CVC tip also near this level. Patient is prominently rotated towar ds the right. Interstitial changes persist but show some improvement from prior. Suspect a small left effusion. Heart remains enlarged. Impression: 1. The patient's left PICC line and new left CVC terminate close to the same level, near the expected region of the upper to mid SVC. 2. Cardiomegaly and some improvement in the patient's interstitial opacities. Correlate for improving interstitial pulmonary edema.
--- NOTE | 2020-09-27 16:23 | P.PCN ---
Date of Procedure: 09/27/20 Postoperative Diagnosis: Cardiac arrest, ventilator dependent respiratory failure Procedure(s) Performed: Cardiac arrest, ventilator dependent respiratory failure Implants: Insertion of a triple-lumen catheter Anesthesia: local Surgeon: Imelda Fisher Estimated Blood Loss (ml): 0 Pathology: other Condition: critical Disposition: ICU Operative Findings: CENTRAL LINE Indication: Hemodynamic monitoring/Intravenous access. A time-out was completed verifying correct patient, procedure, site, positioning, and implant(s) or special equipment if applicable. The patient was placed in a dependent position appropriate for central line placement based on the vein to be cannulated. The patients left neck was prepped and draped in sterile fashion. 1% Lidocaine was used to anesthetize the surrounding skin area. A triple lumen 9F Cordis catheter was introduced into the LT internal jugular vein using Seldinger technique. The catheter was threaded smoothly over the guide wire and appropriate blood return was obtained. Each lumen of the catheter was evacuated of air and flushed with sterile saline. The catheter was then sutured in place to the skin and a sterile dressing applied. Perfusion to the extremity distal to the point of catheter insertion was checked and found to be adequate. The patient tolerated the procedure well and there were no complications.
[2020-09-27] MEDS: HEPARIN SOD,PORK IN 0.45% NACL 25,000 UNIT in 0.45% NACL 1 250ML.BAG IV SCH (16:56)
[2020-09-27 17:46] LABS: INR 0.9 (<1.2); Partial Thromboplastin Time 22.9 sec (22.0-30.0); Prothrombin Time 10.2 sec (9.0-12.0)
[2020-09-27 18:07] LABS: Glucose,Whole Blood 99 mg/dL (75-99)
[2020-09-27] MEDS: PIPERACILLIN-TAZOBACTAM 3.375 GM in SODIUM CHLORIDE 0.9% 100 ML IVPB SCH (20:56)
[2020-09-27 23:06] LABS: Glucose,Whole Blood 109 mg/dL (75-99)
[2020-09-28] MEDS: IPRATROPIUM-ALBUTEROL 3 ML NEB INHALATION SCH ×6 (02:56→23:49)
[2020-09-28 04:35] LABS: Basophils % (A) 0 %; Eosinophils # (A) 0.7 k/uL (0-0.7); Eosinophils % (A) 5 %; HCT 26.1 % (39.0-53.0); HGB 9.4 gm/dL (13.0-17.5); Lymphocytes # (A) 0.7 k/uL (1.0-4.8); Lymphocytes % (A) 5 %; MCH 33.9 pg (25.0-35.0); MCHC 36.1 g/dL (31.0-37.0); MCV 93.8 fL (80.0-100.0); Mean Platelet Volume 8.1; Monocytes # (A) 0.3 k/uL (0-1.0); Monocytes % (A) 2 %; Neutrophils # (A) 12.9 k/uL (1.3-7.7); Neutrophils % (A) 87 %; Platelet Count 268 k/uL (150-450); RBC 2.79 m/uL (4.30-5.90); RDW 13.7 % (11.5-15.5); WBC 14.8 k/uL (3.8-10.6)
[2020-09-28 04:48] LABS: Calcium 7.7 mg/dL (8.4-10.2); Potassium 5.5 mmol/L (3.5-5.1)
[2020-09-28 04:52] LABS: Phosphorus 11.2 mg/dL (2.5-4.5)
[2020-09-28 04:53] LABS: INR 0.9 (<1.2); Prothrombin Time 9.9 sec (9.0-12.0)
[2020-09-28] MEDS: AMIODARONE 360 MG in DEXTROSE 5% IN WATER 200 ML IV SCH ×8 (04:58→23:39)
[2020-09-28 05:16] LABS: ABG Base Excess -5.3 mmol/L; ABG HCO3 20 mmol/L (21-25); ABG Oxygen Saturation 98.9 % (94-97); ABG PCO2 34 mmHg (35-45); ABG PH 7.37 (7.35-7.45); ABG PO2 150 mmHg (83-108); ABG TCO2 21 mmol/L (19-24); Allen Test Performed? Yes
[2020-09-28 05:43] LABS: Glucose,Whole Blood 108 mg/dL (75-99)
[2020-09-28] MEDS: CALCIUM ACETATE 667 MG TAB PO SCH ×3 (06:33→17:39)
[2020-09-28] MEDS: LEVOTHYROXINE 50 MCG TAB PO SCH (06:33)
[2020-09-28] MEDS: CHLORHEXIDINE GLUCONATE 15 ML CUP MUCOUS MEM SCH ×2 (08:09→20:52)
[2020-09-28] MEDS: PANTOPRAZOLE 40 MG/10 ML VIAL IVP SCH (08:09)
[2020-09-28] MEDS: ASPIRIN 81 MG PO SCH (08:09)
[2020-09-28] MEDS: CLOPIDOGREL 75 MG TAB PO SCH (08:09)
[2020-09-28] MEDS: PIPERACILLIN-TAZOBACTAM 3.375 GM in SODIUM CHLORIDE 0.9% 100 ML IVPB SCH ×2 (08:10→20:53)
[2020-09-28] MEDS: SODIUM CHLORIDE 0.9% 500 ML IV SCH (08:11)
--- NOTE | 2020-09-28 08:21 | XR ---
EXAMINATION TYPE: XR chest 1V portable DATE OF EXAM: 09/28/2020 Comparison: 09/27/2020 Clinical History: 59-year-old male Tube placement Findings: Heart remains borderline enlarged. Left CVC tip not clearly seen beyond the expected mid SVC. Left PI CC tip not clearly seen on the present exam, seen just to the right of midline currently. ET tube is satisfactory. NG tube courses below the diaphragm. Worsening patchy opacity throughout the right lung and continued interstitial density throughout the left. Suspect trace left effusion. Patchy retrocar diac opacity also persists. Impression: Continued pulmonary vascular congestion but with worsening, now with developing airspace disease vers us confluent pulmonary edema on the right. Continued trace left effusion with adjacent atelectasis an d/or consolidation.
--- NOTE | 2020-09-28 10:25 | P.PN ---
Subjective Progress Note Date: 09/28/20 Patient's overall condition did not change since yesterday. No significant improvement. He is currently sedated and intubated. He is on full vent support with a PEEP of 10 and FiO2 of 70%. No acute events overnight reported by nursing staff. Chest x-ray this morning showed evidence of fluid overload and worsening pulmonary edema. 1.5 L of fluid removed with dialysis yesterday Objective - Vital Signs Vital signs: Vital Signs Temp 98.7 F 09/28/20 09:14 Pulse 96 09/28/20 10:00 Resp 23 09/28/20 10:00 BP 130/93 09/28/20 10:00 Pulse Ox 95 09/28/20 10:00 Intake & Output 09/27/20 09/28/20 09/28/20 18:59 06:59 18:59 Intake Total 6433.687 1563.609 649.511 Output Total 2046 15 1800 Balance -963.983 2114.609 -1150.489 Weight 151.3 kg Intake: IV 156 265 64 0.9 Normal Saline 36 45 24 Pressure Bag Piperacillin-Tazobactam 3 100 .375 gm In Sodium Chloride 0.9% 100 ml @ 25 mls/hr IVPB Q12HR [facility] Rx #:[id number] Sodium Chloride 0.9% 1, 120 120 40 000 ml @ 10 mls/hr IV . Q24H [facility] Rx#:[id number] Intake, IV Titration 600.000 856.609 88.511 Amount Amiodarone 360 mg In 400 376.109 Dextrose 5% in Water 200 ml @ 1 MG/MIN 33.333 mls/ hr IV .Q6H [facility] Rx#: [id number] Heparin Sod,Pork in 0.45% 80.5 NaCl 25,000 unit In 0.45 % NaCl 1 250ml.bag @ 8.13 UNITS/KG/HR 10 mls/hr IV .Q24H [facility] Rx#:[id number] propofoL 1,000 mg In 200.000 400 88.511 Empty Bag 1 bag @ Titrate IV .Q0M [facility] Rx#: [id number] Tube Feeding 234 276 92 Hemodialysis 300 Other 120 90 105 Output: Urine 46 15 0 Hemodialysis 2000 1800 Other: Voiding Method Indwelling Catheter Indwelling Catheter Indwelling Catheter ABP, PAP, CO, CI - Last Documented Arterial Blood Pressure 84/54 - Exam General: The patient is sedated and intubated Eye: there is normal conjunctiva bilaterally. Neck: The neck is supple, there is no JVD. Cardiovascular: Normal S1-S2, no S3-S4, no murmurs. Respiratory: Lungs with mechanical ventilator sounds Gastrointestinal: Abdomen is distended but soft, nontender Musculoskeletal: There is evidence of anasarca up to the abdomen. Skin: Skin is warm and dry - Labs CBC & Chem 7: 09/28/20 04:23 09/28/20 04:23 Labs: Abnormal Lab Results - Last 24 Hours (Table) 09/27/20 09/27/20 09/28/20 Range/Units 11:23 23:03 04:23 WBC 14.8 H (3.8-10.6) k/uL RBC 2.79 L (4.30-5.90) m/uL Hgb 9.4 L (13.0-17.5) gm/dL Hct 26.1 L (39.0-53.0) % Neutrophils # 12.9 H (1.3-7.7) k/uL Lymphocytes # 0.7 L (1.0-4.8) k/uL ABG pCO2 (35-45) mmHg ABG pO2 (83-108) mmHg ABG HCO3 (21-25) mmol/L ABG O2 Saturation (94-97) % Sodium (137-145) mmol/L Potassium (3.5-5.1) mmol/L Chloride (98-107) mmol/L Carbon Dioxide (22-30) mmol/L BUN (9-20) mg/dL Creatinine (0.66-1.25) mg/dL POC Glucose (mg/dL) 105 H 109 H (75-99) mg/dL Calcium (8.4-10.2) mg/dL Phosphorus (2.5-4.5) mg/dL 09/28/20 09/28/20 09/28/20 Range/Units 04:23 05:13 05:42 WBC (3.8-10.6) k/uL RBC (4.30-5.90) m/uL Hgb (13.0-17.5) gm/dL Hct (39.0-53.0) % Neutrophils # (1.3-7.7) k/uL Lymphocytes # (1.0-4.8) k/uL ABG pCO2 34 L (35-45) mmHg ABG pO2 150 H (83-108) mmHg ABG HCO3 20 L (21-25) mmol/L ABG O2 Saturation 98.9 H (94-97) % Sodium 131 L (137-145) mmol/L Potassium 5.5 H (3.5-5.1) mmol/L Chloride 96 L (98-107) mmol/L Carbon Dioxide 20 L (22-30) mmol/L BUN 79 H (9-20) mg/dL Creatinine 7.80 H* (0.66-1.25) mg/dL POC Glucose (mg/dL) 108 H (75-99) mg/dL Calcium 7.7 L (8.4-10.2) mg/dL Phosphorus 11.2 H* (2.5-4.5) mg/dL Microbiology - Last 24 Hours (Table) 09/27/20 15:30 Gram Stain - Preliminary Sputum Sputum Culture - Preliminary Assessment and Plan Assessment: Patient is a 59-year-old male with a history of hypertension, hypothyroidism, and obesity who presented to the ER after cardiac arrest in the field. He had multiple rounds of CPR, Epi, and Defib prior to obtaining ROSC. It appears that his down time in the field was approximately 30 minutes on review of the EMS run sheet. He was intubated and sedated he underwent a left heart cath with stent to the LAD and impella placement. Echocardiogram demonstrated an EF of less than 20% with global hypokenesis. He was determined to be in cardiogenic shock requiring dopamine, dobutamine, and levophed. He has required a Nimbex drip to maintain adequate ventilation until 09/20/20. He demonstrated shock liver on arrival. He has also had progressive anuric renal failure, nephrology was consulted HD was initiated on 09/21/20. He had one abnormal EEG with worsening of EEG on 09/20/20. We have been unable to wean sedation due to agitation and there are concerns for severe anoxic encephalopathy. His CXR was worsening and procalcitonin was elevated and he was started on zosyn with concerns for poss ible underlying PNA. He had not been awake or following commands with sedation holidays. Below is the list list of his medical problems addressed during this hospitalization V. fib arrest due to ST segment elevated myocardial infarction status post PCI to the circumflex and impella placement Acute systolic congestive heart failure Ischemic cardiomyopathy with ejection fraction less than 20% Cardiogenic shock Cold and mottled right foot - dopamine off 09/23/20, dobutamine, levophed off by 09/22/20 - cardio following closely - ASA, Plavix, lipitor - Arterial duplex and vascular consultation -Plan for second PEG Paroxysmal atrial fibrillation requiring IV amiodarone. Cardiology following closely Hypoxic/Anoxic encephalopathy - neuro recs - continue with sedation holidays - CT head with no acute findings Acute kidney injury secondary to hypoperfusion and likely ATN requiring hemodialysis Hyperphosphatemia Hyperkalemia - nephrology following closely -PhosLo 3 times a day - Avoid nephrotoxic agents - maintain map >65 Acute hypoxic respiratory failure Pneumonia possible gram negative, completed treatment - Zosyn IV started on September 27 - pul recs following closely Anemia - Thrombocytopenia - follow CBC - no indication for transfusion at this point in time. Generalized Dermatitis, improved with IV steroids Morbid obesity with BMI 37.7 Shock liver, resolved Poor overall prognosis. DVT prophylaxis: heparin Discussed with: nursing A total of 35 minutes was spent on the care of this complex patient more than 50% of the time was spent in counseling and care coordination.
--- NOTE | 2020-09-28 10:56 | P.PN ---
Subjective Progress Note Date: 09/28/20 Principal diagnosis: Respiratory failure Patient remains on the ventilator. Hemodynamically has been stable. FiO2 50% PEEP 8. Thus far evaluation no intervention planned for the patient's right lower extremity by vascular surgery. Patient does have good Doppler signals apparently at this time. Official Doppler results remained pending. Objective - Vital Signs Vital signs: Vital Signs Temp 98.7 F 09/28/20 09:14 Pulse 96 09/28/20 10:00 Resp 23 09/28/20 10:00 BP 130/93 09/28/20 10:00 Pulse Ox 95 09/28/20 10:00 Intake & Output 09/27/20 09/28/20 09/28/20 18:59 06:59 18:59 Intake Total 8427.812 7658.609 649.511 Output Total 2046 15 1800 Balance -348.818 8722.609 -1150.489 Weight 151.3 kg 151.3 kg Intake: IV 156 265 64 0.9 Normal Saline 36 45 24 Pressure Bag Piperacillin-Tazobactam 3 100 .375 gm In Sodium Chloride 0.9% 100 ml @ 25 mls/hr IVPB Q12HR [facility] Rx #:[id number] Sodium Chloride 0.9% 1, 120 120 40 000 ml @ 10 mls/hr IV . Q24H [facility] Rx#:[id number] Intake, IV Titration 600.000 856.609 88.511 Amount Amiodarone 360 mg In 400 376.109 Dextrose 5% in Water 200 ml @ 1 MG/MIN 33.333 mls/ hr IV .Q6H [facility] Rx#: [id number] Heparin Sod,Pork in 0.45% 80.5 NaCl 25,000 unit In 0.45 % NaCl 1 250ml.bag @ 8.13 UNITS/KG/HR 10 mls/hr IV .Q24H [facility] Rx#:[id number] propofoL 1,000 mg In 200.000 400 88.511 Empty Bag 1 bag @ Titrate IV .Q0M [facility] Rx#: [id number] Tube Feeding 234 276 92 Hemodialysis 300 Other 120 90 105 Output: Urine 46 15 0 Hemodialysis 2000 1800 Other: Voiding Method Indwelling Catheter Indwelling Catheter Indwelling Catheter ABP, PAP, CO, CI - Last Documented Arterial Blood Pressure 84/54 - Exam Abdomen: Soft, distended, nontender - Labs CBC & Chem 7: 09/28/20 04:23 09/28/20 04:23 Labs: Abnormal Lab Results - Last 24 Hours (Table) 09/27/20 09/27/20 09/28/20 Range/Units 11:23 23:03 04:23 WBC 14.8 H (3.8-10.6) k/uL RBC 2.79 L (4.30-5.90) m/uL Hgb 9.4 L (13.0-17.5) gm/dL Hct 26.1 L (39.0-53.0) % Neutrophils # 12.9 H (1.3-7.7) k/uL Lymphocytes # 0.7 L (1.0-4.8) k/uL ABG pCO2 (35-45) mmHg ABG pO2 (83-108) mmHg ABG HCO3 (21-25) mmol/L ABG O2 Saturation (94-97) % Sodium (137-145) mmol/L Potassium (3.5-5.1) mmol/L Chloride (98-107) mmol/L Carbon Dioxide (22-30) mmol/L BUN (9-20) mg/dL Creatinine (0.66-1.25) mg/dL POC Glucose (mg/dL) 105 H 109 H (75-99) mg/dL Calcium (8.4-10.2) mg/dL Phosphorus (2.5-4.5) mg/dL 09/28/20 09/28/20 09/28/20 Range/Units 04:23 05:13 05:42 WBC (3.8-10.6) k/uL RBC (4.30-5.90) m/uL Hgb (13.0-17.5) gm/dL Hct (39.0-53.0) % Neutrophils # (1.3-7.7) k/uL Lymphocytes # (1.0-4.8) k/uL ABG pCO2 34 L (35-45) mmHg ABG pO2 150 H (83-108) mmHg ABG HCO3 20 L (21-25) mmol/L ABG O2 Saturation 98.9 H (94-97) % Sodium 131 L (137-145) mmol/L Potassium 5.5 H (3.5-5.1) mmol/L Chloride 96 L (98-107) mmol/L Carbon Dioxide 20 L (22-30) mmol/L BUN 79 H (9-20) mg/dL Creatinine 7.80 H* (0.66-1.25) mg/dL POC Glucose (mg/dL) 108 H (75-99) mg/dL Calcium 7.7 L (8.4-10.2) mg/dL Phosphorus 11.2 H* (2.5-4.5) mg/dL Microbiology - Last 24 Hours (Table) 09/27/20 15:30 Gram Stain - Preliminary Sputum Sputum Culture - Preliminary Assessment and Plan (1) Acute respiratory failure Narrative/Plan: Spoke with the patient's Luiza by phone. Discussed risks and benefits of proceeding with tracheostomy and PEG tube placement. She is agreeable to proceed. Those risks were noted to include but not limited to bleeding, infection, loss of airway, , bowel injury, inappropriate catheter placement, pneumothorax, fistula. Will tentatively scheduled for tomorrow morning. If heparin drip was resumed Will plan stopping heparin drip at 5 AM. Current Visit: Yes Status: Acute Code(s): J96.00 - ACUTE RESPIRATORY FAILURE, UNSP W HYPOXIA OR HYPERCAPNIA SNOMED Code(s): 54857531
[2020-09-28] MEDS: DEXMEDETOMIDINE/0.9% NACL(PMX) 400 MCG in EMPTY BAG 1 BAG IV SCH ×3 (11:09→20:52)
[2020-09-28] MEDS: CLEVIDIPINE BUTYRATE 25 MG in EMPTY BAG 1 BAG IV SCH (11:10)
--- NOTE | 2020-09-28 11:16 | P.PN ---
Subjective Patient is seen in follow-up for acute kidney injury. Remains off vasopressors. Currently on 50% FiO2. Blood pressure stable. On amiodarone drip for A. fib. Oliguric. Started on hemodialysis September 21. Receiving tube feeding. Vital signs: Stable. General: The patient appeared well nourished and normally developed. HEENT: Intubated. LUNGS: Breath sounds decreased. HEART: Irregular rate and rhythm. ABDOMEN: Soft, no distention. EXTREMITITES: 1+ edema. Objective - Vital Signs Vital signs: Vital Signs Temp 98.7 F 09/28/20 09:14 Pulse 104 H 09/28/20 10:52 Resp 23 09/28/20 10:00 BP 130/93 09/28/20 10:00 Pulse Ox 95 09/28/20 10:00 Intake & Output 09/27/20 09/28/20 09/28/20 18:59 06:59 18:59 Intake Total 3517.214 4339.609 849.511 Output Total 2046 15 1800 Balance -847.615 9562.609 -950.489 Weight 151.3 kg 151.3 kg Intake: IV 156 265 64 0.9 Normal Saline 36 45 24 Pressure Bag Piperacillin-Tazobactam 3 100 .375 gm In Sodium Chloride 0.9% 100 ml @ 25 mls/hr IVPB Q12HR [facility] Rx #:[id number] Sodium Chloride 0.9% 1, 120 120 40 000 ml @ 10 mls/hr IV . Q24H [facility] Rx#:[id number] Intake, IV Titration 600.000 856.609 288.511 Amount Amiodarone 360 mg In 400 376.109 200 Dextrose 5% in Water 200 ml @ 1 MG/MIN 33.333 mls/ hr IV .Q6H [facility] Rx#: [id number] Heparin Sod,Pork in 0.45% 80.5 NaCl 25,000 unit In 0.45 % NaCl 1 250ml.bag @ 8.13 UNITS/KG/HR 10 mls/hr IV .Q24H [facility] Rx#:[id number] propofoL 1,000 mg In 200.000 400 88.511 Empty Bag 1 bag @ Titrate IV .Q0M [facility] Rx#: [id number] Tube Feeding 234 276 92 Hemodialysis 300 Other 120 90 105 Output: Urine 46 15 0 Hemodialysis 2000 1800 Other: Voiding Method Indwelling Catheter Indwelling Catheter Indwelling Catheter ABP, PAP, CO, CI - Last Documented Arterial Blood Pressure 84/54 - Labs CBC & Chem 7: 09/28/20 04:23 09/28/20 04:23 Labs: Abnormal Lab Results - Last 24 Hours (Table) 09/27/20 09/27/20 09/28/20 Range/Units 11:23 23:03 04:23 WBC 14.8 H (3.8-10.6) k/uL RBC 2.79 L (4.30-5.90) m/uL Hgb 9.4 L (13.0-17.5) gm/dL Hct 26.1 L (39.0-53.0) % Neutrophils # 12.9 H (1.3-7.7) k/uL Lymphocytes # 0.7 L (1.0-4.8) k/uL ABG pCO2 (35-45) mmHg ABG pO2 (83-108) mmHg ABG HCO3 (21-25) mmol/L ABG O2 Saturation (94-97) % Sodium (137-145) mmol/L Potassium (3.5-5.1) mmol/L Chloride (98-107) mmol/L Carbon Dioxide (22-30) mmol/L BUN (9-20) mg/dL Creatinine (0.66-1.25) mg/dL POC Glucose (mg/dL) 105 H 109 H (75-99) mg/dL Calcium (8.4-10.2) mg/dL Phosphorus (2.5-4.5) mg/dL 09/28/20 09/28/20 09/28/20 Range/Units 04:23 05:13 05:42 WBC (3.8-10.6) k/uL RBC (4.30-5.90) m/uL Hgb (13.0-17.5) gm/dL Hct (39.0-53.0) % Neutrophils # (1.3-7.7) k/uL Lymphocytes # (1.0-4.8) k/uL ABG pCO2 34 L (35-45) mmHg ABG pO2 150 H (83-108) mmHg ABG HCO3 20 L (21-25) mmol/L ABG O2 Saturation 98.9 H (94-97) % Sodium 131 L (137-145) mmol/L Potassium 5.5 H (3.5-5.1) mmol/L Chloride 96 L (98-107) mmol/L Carbon Dioxide 20 L (22-30) mmol/L BUN 79 H (9-20) mg/dL Creatinine 7.80 H* (0.66-1.25) mg/dL POC Glucose (mg/dL) 108 H (75-99) mg/dL Calcium 7.7 L (8.4-10.2) mg/dL Phosphorus 11.2 H* (2.5-4.5) mg/dL Microbiology - Last 24 Hours (Table) 09/27/20 15:30 Gram Stain - Preliminary Sputum Sputum Culture - Preliminary Assessment and Plan Plan: Assessment: 1. Acute kidney injury secondary to ATN secondary to cardiac arrest and cardiogenic shock. Oliguric. Started on hemodialysis September 21. 2. Status post cardiac arrest. 3. Coronary artery disease status post catheterization with stent placement to the circumflex on 09/17/2020. 4. Cardiogenic shock status post dopamine and dobutamine. Ejection fraction 20-25%. 5. Metabolic acidosis secondary to acute kidney injury. Status post bicarb drip. 6. Acute hypoxic respiratory failure. 7. Hypocalcemia secondary to acute kidney injury. Replaced. Better. 8. Hyperphosphatemia secondary to acute kidney injury maintained on PhosLo. 9. A. fib with RVR maintained on amiodarone drip. 10. Hyponatremia secondary to acute kidney injury. Hypervolemic. Plan: Maintain tube feeds. No response in urine output with IV Lasix. Completed hemodialysis this morning with 1.5 L ultrafiltration. Plan for another treatment tomorrow. Prognosis guarded.
--- NOTE | 2020-09-28 11:59 | P.PN ---
Subjective Progress Note Date: 09/28/20 Principal diagnosis: Acute renal failure needing hemodialysis patient is seen and examined lying in bed he is sedated and intubated on mechanical ventilation. Plan is for possible sedation holiday today. Patient will require long-term hemodialysis and requesting a tunneled dialysis catheter placement today. He underwent arterial study of the lower extremities yesterday with an JAYCOB of 1.57 bilaterally. Coloring of the right foot has improved. He has not been able to be started on heparin drip as patient was unable to get blood draws. He underwent hemodialysis this morning without any difficulties. Objective - Vital Signs Vital signs: Vital Signs Temp 98.7 F 09/28/20 09:14 Pulse 80 09/28/20 08:00 Resp 25 H 09/28/20 08:00 BP 109/66 09/28/20 09:14 Pulse Ox 97 09/28/20 08:00 Intake & Output 09/27/20 09/28/20 09/28/20 18:59 06:59 18:59 Intake Total 5226.382 6596.609 472.511 Output Total 2046 15 1800 Balance -754.663 8642.609 -1327.489 Weight 151.3 kg Intake: IV 156 265 16 0.9 Normal Saline 36 45 6 Pressure Bag Piperacillin-Tazobactam 3 100 .375 gm In Sodium Chloride 0.9% 100 ml @ 25 mls/hr IVPB Q12HR [facility] Rx #:[id number] Sodium Chloride 0.9% 1, 120 120 10 000 ml @ 10 mls/hr IV . Q24H [facility] Rx#:[id number] Intake, IV Titration 600.000 856.609 88.511 Amount Amiodarone 360 mg In 400 376.109 Dextrose 5% in Water 200 ml @ 1 MG/MIN 33.333 mls/ hr IV .Q6H [facility] Rx#: [id number] Heparin Sod,Pork in 0.45% 80.5 NaCl 25,000 unit In 0.45 % NaCl 1 250ml.bag @ 8.13 UNITS/KG/HR 10 mls/hr IV .Q24H [facility] Rx#:[id number] propofoL 1,000 mg In 200.000 400 88.511 Empty Bag 1 bag @ Titrate IV .Q0M [facility] Rx#: [id number] Tube Feeding 234 276 23 Hemodialysis 300 Other 120 90 45 Output: Urine 46 15 0 Hemodialysis 1999 1800 Other: Voiding Method Indwelling Catheter Indwelling Catheter ABP, PAP, CO, CI - Last Documented Arterial Blood Pressure 99/58 - Exam General appearance: The patient is sedated and intubated. HET: Head is normocephalic and atraumatic. Neck: Supple without lymphadenopathy. Trachea midline. Heart: S1 S2. Regular rate and rhythm. Lungs: Clear to auscultation on mechanical ventilation. Abdomen: Soft, nontender, nondistended. Extremities: Bilateral lower extremity edema. Right lower extremity with palpable dorsalis pedis pulse, cool to the touch but improved from yesterday. Mottling and discoloration to the plantar aspect of the right foot has improved. Left lower extremity with palpable the dorsalis pedis pulse. Warm to the touch with good capillary refill. Neurological: Sedated and intubated. - Labs CBC & Chem 7: 09/28/20 04:23 09/28/20 04:23 Labs: Abnormal Lab Results - Last 24 Hours (Table) 09/27/20 09/27/20 09/28/20 Range/Units 11:23 23:03 04:23 WBC 14.8 H (3.8-10.6) k/uL RBC 2.79 L (4.30-5.90) m/uL Hgb 9.4 L (13.0-17.5) gm/dL Hct 26.1 L (39.0-53.0) % Neutrophils # 12.9 H (1.3-7.7) k/uL Lymphocytes # 0.7 L (1.0-4.8) k/uL ABG pCO2 (35-45) mmHg ABG pO2 (83-108) mmHg ABG HCO3 (21-25) mmol/L ABG O2 Saturation (94-97) % Sodium (137-145) mmol/L Potassium (3.5-5.1) mmol/L Chloride (98-107) mmol/L Carbon Dioxide (22-30) mmol/L BUN (9-20) mg/dL Creatinine (0.66-1.25) mg/dL POC Glucose (mg/dL) 105 H 109 H (75-99) mg/dL Calcium (8.4-10.2) mg/dL Phosphorus (2.5-4.5) mg/dL 09/28/20 09/28/20 09/28/20 Range/Units 04:23 05:13 05:42 WBC (3.8-10.6) k/uL RBC (4.30-5.90) m/uL Hgb (13.0-17.5) gm/dL Hct (39.0-53.0) % Neutrophils # (1.3-7.7) k/uL Lymphocytes # (1.0-4.8) k/uL ABG pCO2 34 L (35-45) mmHg ABG pO2 150 H (83-108) mmHg ABG HCO3 20 L (21-25) mmol/L ABG O2 Saturation 98.9 H (94-97) % Sodium 131 L (137-145) mmol/L Potassium 5.5 H (3.5-5.1) mmol/L Chloride 96 L (98-107) mmol/L Carbon Dioxide 20 L (22-30) mmol/L BUN 79 H (9-20) mg/dL Creatinine 7.80 H* (0.66-1.25) mg/dL POC Glucose (mg/dL) 108 H (75-99) mg/dL Calcium 7.7 L (8.4-10.2) mg/dL Phosphorus 11.2 H* (2.5-4.5) mg/dL Microbiology - Last 24 Hours (Table) 09/27/20 15:30 Gram Stain - Preliminary Sputum Sputum Culture - Preliminary Assessment and Plan Assessment: 1. Right lower extremity with color changes/cold likely microvascular due to vasopressors 2. Cardiac arrest, status post cardiac catheterization and stenting of circumflexs and impella placement via right femoral vein access 3. Acute hypoxic respiratory failure intubated on mechanical ventilator 4. Acute renal failure on hemodialysis 5. Severe ischemic cardiomyopathy with ejection fraction less than 20% 6. History atrial fibrillation 7. Hypertension 8. Hyperlipidemia Plan: 1. Continue supportive care 2. Right lower extremity arterial doppler study ordered and reviewed, ABIs 1.57 bilaterally 3. Continue current ICU and medical management 4. Plan for Tunneled hemodialysis placement this afternoon, keep NPO Thank you for this consultation and allowing us take part in the plan of care of your patient during his hospital stay The impression and plan of care has been dictated as directed. I performed a history and examination of this patient, discussed the same with the dictator. I agree with the dictator's note ,documented as a scribe. Any additional findings or plans will be noted.
--- NOTE | 2020-09-28 12:14 | P.PN ---
Subjective Progress Note Date: 09/28/20 59-year-old male patient, post cardiac arrest, V. fib arrest, who is admitted intensive care unit since 09/17/2020 and the patient is being seen in follow-up today on 09/25/2020. The patient is still intubated on a mechanical ventilator. The patient was a V. fib arrest, received CPR on the scene, defibrillated, received epinephrine and was brought into us in his been in the intensive care unit setting. He turned out to be a case of a ST segment elevation myocardial infarction. He received immediate cardiac catheterization and stenting of the circumflex artery. The patient this morning is sedated with propofol running at 60 mcg/kg per minute. Is also on fentanyl 1 mcg/mg/h. He is off pressors. His cardiac rhythm is sinus with a left bundle branch block pattern. Over the past 24 hours, the patient was given dobutamine to augment his cardiac output. He went into atrial fibrillation with RVR. He was given a bolus of amiodarone and he is currently back into normal sinus rhythm. In terms of his vent support, the patient remains on mechanical ventilator. At this point in time, the pa tient is an assist-control mode at the rate of 28 and a tidal volume of 500 and FiO2 of 50% with a PEEP of 10. The blood gases from today showing a pH of 7.31 with a pCO2 of 35 and pO2 of 122. He is in renal failure. He is receiving dialysis periodically. He received dialysis on 09/20/2020 and 09/21/2020. Dialysis was attempted yesterday, unable to complete as the patient's catheter was kinked and Changes will be done today surgery. He will probably end up having another session of hemodialysis today. When the process of getting the patient sedation holiday in his neurologic function will be reevaluated. CAT scan of the brain another EEG is in progress for today. He is on Levemir in [facility] for blood sugar control. He is on vital high protein at the rate of 27 mL an hour. No abdominal distention. No nausea or vomiting. No fever or chills. Chest x-ray is showing cardiomegaly with small bilateral pleural effusions on some atelectatic changes in lung bases bilaterally. Orogastric tube is in a good location. He does have small pleural effusions. There is stable cardiomegaly. In terms of his blood work, the white cell count is at 9.2 with a hemoglobin of 9.6. Sodium is at 129, potassium at 5.3, serum bicarbonate is 14 with a BUN of 78 and a creatinine of 9.67. On today's evaluation of 09/26/2020, the patient is being given another sedation holiday. The process yesterday got interrupted as the patient became basically a mechanical ventilator and the patient went into atrial fibrillation with rapid ventricular response. At that point, the patient was placed back on sedation with accommodation propofol and fentanyl and he was kept on the sedation throughout the day. This morning, the plan is to get him off the sedation again and utilizing Precedex if needed. A repeat CAT scan of the brain was ordered for today and the CAT scan showed age-related atrophy and chronic small vessel ischemic changes without any acute intracranial process. No evidence of any acute bleeding. On today's evaluation, the patient is grimacing to deep painful stimulation that was applied to his fingers and toes. For now, the patient is calm and comfortable. He is synchronous with the mechanical ventilator. He is on assist control mode of ventilation, at the rate of 28 and a tidal volume of 500 and FiO2 of 40% with a PEEP of 5. The blood gases from today showed a pH of 7.29 with a pCO2 of 41 and pO2 of 75. This was on FiO2 of 40%. The patient's chest x-ray showed stable findings along with some pulmonary a congestion and scattered infiltrates and interstitial edema. The orotracheal tube was in a good location. NG tube was also in a good location. The patient is currently in normal sinus rhythm. He is on amiodarone drip at 1 mg per minute and based on cardiology recommendation, we'll continue the amiodarone drip at a maintenance of 1 mg per minute. A minimal amount of urine output. The patient remains in acute kidney injury. Creatinine is up to 7.98. Underwent hemodialysis yesterday. A another session of hemodialysis will be given to him today. He is afebrile. He is receiving enteral feeding for nutritional support. He continues to be on a combination of aspirin and Plavix. He is on no pressors for now. Had a discussion with the . Updated her on his condition. There is a concern of ongoing hypoxic encephalopathy. Meanwhile, the patient remains on Levemir insulin for blood sugar control in addition a slight scale insulin coverage. The patient is receiving vital high protein which is currently at goal. Current cardiac rhythm is sinus with a bundle- branch block pattern. 09/27/2020, I'm seeing the patient for a follow-up. Note that the patient is a case of a cardiac arrest with a STEMI requiring emergent cardiac catheterization and stenting of the circumflex. During the course of his treatment, the patient required insertion and removal of an impeller device. In any rate, there was a concern of the patient was having anoxic encephalopathy. Yesterday, I took him off the fentanyl and the propofol and I switched him to Precedex. As the weaning was being done, the patient was given a sedation holiday and he got to the point where he was awake and following some simple commands. He would open up his eyes. He would move his toes and fingers upon demand. This was also confirmed by neurology. As such, we believe that there is adequate neurologic functions. Nevertheless, as the patient was taken off the sedation, he required more sedation he was placed on Precedex and ultimately were unable to control his restlessness and the patient was having increased tachypnea tachycardia and episodes of atrial fibrillation with rapid ventricular response. He was also desaturating as the patient was becoming asynchronous with a mechanical ventilator. I had to put him back on propofol is currently running at 45 mcg/kg per minute. He stayed on propofol throughout the night. Meanwhile, he remains on assist control mode at a rate of 22 with a tidal volume of 500 and FiO2 of 70% with a PEEP of 10. The blood gases from today showing a pH of 7.35 with a pCO2 of 40 and pO2 of 129. The chest x-ray showing development of a right lower lobe pulmonary infiltrate. ET tube is in a good location. There is a suspicion of a right lower lobe pneumonia. White cell count is up to 15.2. Mild dynamically, he is on no pressors. He is back in normal sinus rhythm. He remains on amiodarone 1 mg per minute per heel top lift splitter recommendation. He does have a bundle-branch block pattern. A repeat echocardiogram was done today and his EF is still poor, less than 20%. He remains in renal failure. He is requiring daily hemodialysis. Underwent hemodialysis yesterday with ultrafiltration of 500 mL. He continues to have extensive swelling in the upper and lower extremity and in his scrotum. On today's evaluation, he is also noted to have diminished pulses in lower extremities bilaterally. Doppler significant drop in the right foot. Right foot is cold and an same time there is some skin mottling and cyanosis in his toes mainly on the right. As mentioned, the right foot is cold yet Doppler signals are present. His previously inserted and patella was in the right femoral artery. There is also some rash developing over his upper thighs and abdomen and trunk and shoulders and upper extremities. He is receiving enteral feeding for nutritional support and is currently on vital high protein running at 23 mL an hour. Urine output is 5 mL an hour. 09/28/2020, the patient is being seen for a follow-up. He has been kept on propofol 45 mg/kg/m. We were unable to control his condition off sedation. He went on Precedex and he was still quite restless and agitated and at that point he was switched again to propofol. This morning is much more comfortable. Nevertheless, blood was noted to be lipemic. We're going to check her triglyceride levels and switch this patient back to Precedex. Note that while on Precedex, the patient was able to follow some simple commands. The ultimate plan is to proceed with a pack and a tracheostomy tube insertion and this is scheduled to be done tomorrow. Meanwhile, the patient underwent hemodialysis today. A total of 1.5 L of ultrafiltration was performed. His cardiac rhythm remains atrial fibrillation and amiodarone is running at 1 mg per minute. He remains on a mechanical ventilator on assist control mode with a rate of 22 and tidal volume of 550 FiO2 of 60% with a PEEP of 10. Blood gas showed a pH of 7.37 with a pCO2 of 34 and pO2 of 100. The patient is also receiving enteral feeding for nutritional support with Nepro 20 mL an hour. Urine output is minimal. The patient had some ischemic changes in the lower extremity especially on the right. On today's evaluation, the right foot is warmer compared to yesterday and there are Doppler signals bilaterally. Arterial Dopplers abdominal pain and the results of the pending in the patient is being seen by vascular surgery. He is on no pressors for now. On today's chest x- ray, there is the blood of the right lung consolidation. The patient was producing purulent mucus yesterday. Sputum cultures have been sent. The patient was started on IV Zosyn. Rest or secretions improved since yesterday. White cell count currently is at 14.8 with hemoglobin of 9.4. Objective - Vital Signs Vital signs: Vital Signs Temp 98.7 F 09/28/20 09:14 Pulse 98 09/28/20 11:00 Resp 25 H 09/28/20 11:00 BP 100/70 09/28/20 11:00 Pulse Ox 97 09/28/20 11:00 Intake & Output 09/27/20 09/28/20 09/28/20 18:59 06:59 18:59 Intake Total 4722.747 8692.609 988.511 Output Total 2046 15 1800 Balance -191.232 7775.609 -811.489 Weight 151.3 kg 151.3 kg Intake: IV 156 265 80 0.9 Normal Saline 36 45 30 Pressure Bag Piperacillin-Tazobactam 3 100 .375 gm In Sodium Chloride 0.9% 100 ml @ 25 mls/hr IVPB Q12HR [facility] Rx #:[id number] Sodium Chloride 0.9% 1, 120 120 50 000 ml @ 10 mls/hr IV . Q24H [facility] Rx#:[id number] Intake, IV Titration 600.000 856.609 388.511 Amount Amiodarone 360 mg In 400 376.109 200 Dextrose 5% in Water 200 ml @ 1 MG/MIN 33.333 mls/ hr IV .Q6H [facility] Rx#: [id number] Heparin Sod,Pork in 0.45% 80.5 NaCl 25,000 unit In 0.45 % NaCl 1 250ml.bag @ 8.13 UNITS/KG/HR 10 mls/hr IV .Q24H [facility] Rx#:[id number] propofoL 1,000 mg In 200.000 400 188.511 Empty Bag 1 bag @ Titrate IV .Q0M [facility] Rx#: [id number] Tube Feeding 234 276 115 Hemodialysis 300 Other 120 90 105 Output: Urine 46 15 0 Hemodialysis 2000 1800 Other: Voiding Method Indwelling Catheter Indwelling Catheter Indwelling Catheter ABP, PAP, CO, CI - Last Documented Arterial Blood Pressure 107/69 - Exam synchronous a mechanical ventilator. Orogastric and orotracheal tube are both in place. Unresponsive, currently on a combination of propofol and fentanyl. Calm and comfortable. He was sedated, comfortable nonacute distress Head exam was generally normal. There was no scleral icterus or corneal arcus. Mucous membranes were moist. Neck was supple and without jugular venous distension, thyromegaly, or carotid bruits. Carotids were easily palpable bilaterally. There was no adenopathy. Lungs were clear to auscultation and percussion, and with normal diaphragmatic excursion. No wheezes or rales were noted. Cardiac exam revealed the PMI to be normally situated and sized. The rhythm was regular and no extrasystoles were noted during several minutes of auscultation. The first and second heart sounds were normal and physiologic splitting of the second heart sound was noted. There were no murmurs, rubs, clicks, or gallops. Abdominal exam revealed normal bowel sounds. The abdomen was soft, non-tender, and without masses, organomegaly, or appreciable enlargement of the abdominal aorta. Examination of the extremities revealed easily palpable radial, femoral and pedal pulses. There was no cyanosis, clubbing or edema.The patient has a temporary dialysis catheter in the left femoral vein neurologically, the examination is limited as the patient is currently on that the propofol. The sedation will be discontinued and the patient's condition will be reevaluated. No response to any painful stimulation. Reflexes are +1 and symmetrical and plantars are downgoing. Motor function cannot be assessed. Pupils are reactive to light. There is positive cough and gag reflex at this point in time. - Labs CBC & Chem 7: 09/28/20 04:23 09/28/20 04:23 Labs: Abnormal Lab Results - Last 24 Hours (Table) 09/27/20 09/28/20 09/28/20 Range/Units 23:03 04:23 04:23 WBC 14.8 H (3.8-10.6) k/uL RBC 2.79 L (4.30-5.90) m/uL Hgb 9.4 L (13.0-17.5) gm/dL Hct 26.1 L (39.0-53.0) % Neutrophils # 12.9 H (1.3-7.7) k/uL Lymphocytes # 0.7 L (1.0-4.8) k/uL ABG pCO2 (35-45) mmHg ABG pO2 (83-108) mmHg ABG HCO3 (21-25) mmol/L ABG O2 Saturation (94-97) % Sodium 131 L (137-145) mmol/L Potassium 5.5 H (3.5-5.1) mmol/L Chloride 96 L (98-107) mmol/L Carbon Dioxide 20 L (22-30) mmol/L BUN 79 H (9-20) mg/dL Creatinine 7.80 H* (0.66-1.25) mg/dL POC Glucose (mg/dL) 109 H (75-99) mg/dL Calcium 7.7 L (8.4-10.2) mg/dL Phosphorus 11.2 H* (2.5-4.5) mg/dL 09/28/20 09/28/20 Range/Units 05:13 05:42 WBC (3.8-10.6) k/uL RBC (4.30-5.90) m/uL Hgb (13.0-17.5) gm/dL Hct (39.0-53.0) % Neutrophils # (1.3-7.7) k/uL Lymphocytes # (1.0-4.8) k/uL ABG pCO2 34 L (35-45) mmHg ABG pO2 150 H (83-108) mmHg ABG HCO3 20 L (21-25) mmol/L ABG O2 Saturation 98.9 H (94-97) % Sodium (137-145) mmol/L Potassium (3.5-5.1) mmol/L Chloride (98-107) mmol/L Carbon Dioxide (22-30) mmol/L BUN (9-20) mg/dL Creatinine (0.66-1.25) mg/dL POC Glucose (mg/dL) 108 H (75-99) mg/dL Calcium (8.4-10.2) mg/dL Phosphorus (2.5-4.5) mg/dL Microbiology - Last 24 Hours (Table) 09/27/20 15:30 Gram Stain - Preliminary Sputum Sputum Culture - Preliminary Assessment and Plan Plan: 1 V. fib cardiac arrest,, secondary to ST segment elevation myocardial infarction, status post cardiac catheterization and stenting of the circumflex coronary artery, status post basement removal of a Impala device. For now, the patient is in a normal sinus rhythm. Hemodynamically stable on no pressors. He has developed significant cardiomyopathy with impaired LV function and an ejection fraction of less than 20%. Echocardiogram. Yesterday and still showing impaired LV function with poor ejection fraction. The patient is having short runs of atrial fibrillation for that reason the patient is demented on amiodarone drip at 1 mg per minute. He is post cardiac catheterization and stenting of the circumflex coronary artery. Hemodynamically stable. Current rhythm is atrial fibrillation. Continues to be on amiodarone drip. No pressors for now. 2 acute hypoxic respiratory failure secondary to above, remains intubated on a mechanical ventilator, with a constellation of the right lung pneumonia/consolidation and the patient was producing excessive sputum. Cultures of been sent and the patient's cousin IV Zosyn. 3 anoxic encephalopathy post cardiac arrest, this was suspected clinically, however, on yesterday's evaluation, the patient was given a sedation holiday he got to a point where he was following some simple commands. The patient is back on propofol which is currently running at 45 mcg/kg per minute. 4 severe ischemic cardiomyopathy with an ejection fraction of less than 20% 5 acute kidney injury secondary to cardiac arrest induced ATN. Currently on hemodialysis, the patient remains oliguric , hemodialysis performed today with an ultrafiltration of 1.5 L 6 shock liver, recovered 7 atrial fibrillation, current rhythm is sinus and is on amiodarone drip at 1 mg per minute 8 left bundle branch block pattern, current rhythm is A. fib 9 hypothyroidism 10 history of hypertension 11 anion gap metabolic acidosis secondary to above, improved with a bicarb is up to 20 with an anion gap of 15 12 fluid overload with extensive edema in the lower extremities and upper extremities in the scrotum. 13 rash, stable, slight improvement compared to yesterday 14 diminished pulses in lower extremity especially in the right foot with Doppler signal is present. Obviously there is some ischemic changes in the right foot, and on today's evaluation ischemic changes and pulses have improved in the lower extremities especially the one on the right. Plan Continue ventilator support, drop the. Down to 8 and FiO2 down to 50%. Awaiting the sputum Gram stain culture Continue IV Zosyn as an empiric antibiotic coverage IV heparin regarding paroxysmal atrial fibrillation , note that the lab was unable to get a PTT and for that reason IV heparin was discontinued. I think the Lipimic blood has affected the ability to do a PTT. For that reason, we will stop the propofol. We'll switch this patient to Precedex again. We'll check a triglyceride level. Vascular surgery evaluation regarding the diminished pulses in lower extremity especially in the right foot and an arterial Doppler was also obtained by cardiology , ischemic changes improved compared to yesterday Continue aspirin and Plavix I will update the family on his condition Hemodialysis today was completed with a 1.5 L of ultrafiltration Enteral feeding for nutritional support We'll continue to follow make further recommendations based on his progress. We'll proceed with a tracheostomy tube insertion and PEG tube insertion and the patient is scheduled to undergo this procedure tomorrow. Critically care evaluation that was on a more than 30 minutes Time with Patient: Greater than 30
--- NOTE | 2020-09-28 13:11 | PN ---
PROGRESS NOTE This is a 59-year-old gentleman who is admitted to hospital with acute myocardial infarction and has vent requiring respiratory failure. The pulses in the right foot were diminished and he had a concern about ischemic leg. This has improved and the pulses are better. He is currently on IV heparin and intravenous amiodarone, but remains in atrial fibrillation with controlled ventricular rate. PHYSICAL EXAMINATION: Heart rate is 98 beats per minute. Blood pressure is 100/72, respiratory rate 18. Chest exam reveals diminished air entry at the bases. Heart exam reveals first and second heart sounds. No gallop. Examination of extremities reveals bilateral pitting edema with diminished foot pulses on the right side, but better than yesterday. LAB: Show a hemoglobin of 9.4, platelet count is 268, potassium is 5.5, creatinine 7.8. BUN is 79. ASSESSMENT: 1. Status post myocardial infarction. 2. Ischemic cardiomyopathy with severe LV dysfunction. 3. Persistent atrial fibrillation. 4. Vent requiring respiratory failure. PLAN: Continue IV amiodarone, IV heparin, aspirin and Plavix that he is on along with supportive care. Prognosis is guarded. MMODL / IJN: [id number] /
[2020-09-28] MEDS ORDERED: LIDOCAINE 1% INJ 10MG/ML (20 ML MDV) ONE (14:07)
[2020-09-28] MEDS ORDERED: HEPARIN SODIUM 1,000 UN/ML (10ML VL) ONE (14:11)
--- NOTE | 2020-09-28 15:02 | P.OP ---
Description of Procedure: Date: 09/28/2020 Preoperative diagnosis: End-stage renal failure Postoperative diagnosis: Same Procedure: Placement of tunneled hemodialysis catheter via right internal jugular vein ultrasound-guided access Surgeon: Rush Machado D.O. Anesthesia: Local with sedation Estimated blood loss: Minimal Complications: None Condition: Stable Indication for procedure: 59-year-old gentleman who is currently in the ICU who originally presented to the hospital with cardiac arrest ultimately having renal failure who has been currently on hemodialysis the last several days. Patient is in need for continued hemodialysis and therefore needs a tunneled hemodialysis catheter placement. He presents today for such procedure. Operative narrative: After written and informed consent was obtained and all risks, benefits and competitions were described the patient was brought to the [facility] and laid in a supine position. The area of the right neck was prepped and draped in the usual sterile fashion. Timeout was performed in normal fashion and antibiotics were administered prior to access. Utilizing ultrasound the right internal jugular vein was visualized and shown to be patent without any thrombus. Under ultrasound guidance the vein was then cannulated with dark nonpulsatile blood flow visualized. Guidewire was placed under direct visualization of fluoroscopy into the superior vena cava. Attention was then placed to the chest wall. A small incision was created on the lateral aspect of the chest wall as well as the access site at the neck. A 23 centimeter palindrome hemodialysis catheter was then tunneled from the chest wall to the neck. Serial dilation was then performed and breakaway sheath was placed into the internal jugular vein under direct visualization of fluoroscopy. The catheter was then placed within the break away sheath the sheath was removed. The ports were assessed for patency and mey and flushed easily and then were hep-locked. The catheter was then sutured in place, cleansed and dressings were placed. The patient tolerated procedure well.
--- NOTE | 2020-09-28 16:09 | IR ---
Fluoroscopy HISTORY: Dialysis catheter placement 1.8 minutes fluoroscopy time supplied to the referring clinician. 74 intraoperative C-arm images doc ument the procedure. See dictated report from vascular surgery.
--- NOTE | 2020-09-28 17:07 | XR ---
EXAMINATION TYPE: XR chest 1V portable DATE OF EXAM: 09/28/2020 COMPARISON: 09/28/2020 HISTORY: Check tube placement Findings endotracheal tube is 4.5 cm from the anand. There is right jugular catheter with tip in the superior vena cava. There is left jugular catheter with tip in superior vena cava. There is left subclavian c atheter with tip in the superior vena cava. There is some pulmonary vascular congestion. There is mil d pulmonary interstitial edema. Heart appears enlarged. There is nasogastric tube in the stomach. The re is some atelectasis at the lung bases and pleural reaction. IMPRESSION: There is a slight improvement in the pulmonary edema compared to exam this morning.
[2020-09-28] MEDS: HYDROmorphone 1 MG/ML 1 ML SYRINGE IVP PRN ×3 (17:37→23:59)
[2020-09-28] MEDS: HEPARIN SOD,PORK IN 0.45% NACL 25,000 UNIT in 0.45% NACL 1 250ML.BAG IV SCH (17:38)
[2020-09-28 17:50] LABS: Glucose,Whole Blood 102 mg/dL (75-99)
[2020-09-28] MEDS: NOREPINEPHRINE 8 MG in SODIUM CHLORIDE 0.9% 250 ML IV SCH (19:42)
[2020-09-29 00:15] LABS: Glucose,Whole Blood 120 mg/dL (75-99)
[2020-09-29] MEDS: DEXMEDETOMIDINE/0.9% NACL(PMX) 400 MCG in EMPTY BAG 1 BAG IV SCH ×4 (01:30→18:21)
[2020-09-29] MEDS: IPRATROPIUM-ALBUTEROL 3 ML NEB INHALATION SCH ×6 (03:30→23:55)
[2020-09-29] MEDS: HYDROmorphone 1 MG/ML 1 ML SYRINGE IVP PRN ×8 (04:16→19:41)
[2020-09-29 04:41] LABS: Basophils % (A) 0 %; Eosinophils # (A) 0.7 k/uL (0-0.7); Eosinophils % (A) 5 %; HCT 26.4 % (39.0-53.0); HGB 8.8 gm/dL (13.0-17.5); Lymphocytes % (A) 7 %; MCH 31.7 pg (25.0-35.0); MCHC 33.4 g/dL (31.0-37.0); MCV 94.8 fL (80.0-100.0); Mean Platelet Volume 8.4; Monocytes # (A) 0.3 k/uL (0-1.0); Monocytes % (A) 2 %; Neutrophils # (A) 10.8 k/uL (1.3-7.7); Neutrophils % (A) 83 %; Platelet Count 359 k/uL (150-450); RBC 2.79 m/uL (4.30-5.90); RDW 14.2 % (11.5-15.5)
[2020-09-29 04:55] LABS: Albumin 2.3 g/dL (3.5-5.0); Calcium 7.5 mg/dL (8.4-10.2); Potassium 5.5 mmol/L (3.5-5.1); Total Bilirubin 1.4 mg/dL (0.2-1.3)
[2020-09-29 05:02] LABS: Phosphorus 10.7 mg/dL (2.5-4.5)
[2020-09-29] MEDS: AMIODARONE 360 MG in DEXTROSE 5% IN WATER 200 ML IV SCH ×2 (05:40)
[2020-09-29 05:54] LABS: ABG Base Excess -6.2 mmol/L; ABG HCO3 19 mmol/L (21-25); ABG Oxygen Saturation 97.8 % (94-97); ABG PCO2 29 mmHg (35-45); ABG PH 7.41 (7.35-7.45); ABG PO2 110 mmHg (83-108); ABG TCO2 19 mmol/L (19-24); Allen Test Performed? Yes
[2020-09-29 06:28] LABS: Glucose,Whole Blood 113 mg/dL (75-99)
[2020-09-29] MEDS ORDERED: SODIUM BICARB 8.4% 50 ML SYR (1 MEQ/ML) IV STA (06:50)
--- NOTE | 2020-09-29 07:40 | XR ---
EXAMINATION TYPE: XR chest 1V portable DATE OF EXAM: 09/29/2020 COMPARISON: 09/28/2020 and prior HISTORY: Respiratory failure intubated patient TECHNIQUE: Single frontal view of the chest is obtained. FINDINGS AND IMPRESSION: Nasogastric tube side hole projects over the gastroesophageal junction recommend advancing 7 cm. Tip of endotracheal tube 4.2 cm above anand. Right jugular CVC tip in the distal SVC. Cardiomegaly with pulmonary vascular congestion, no significant change. Bibasilar opacities which may represent pneumonia and/or atelectasis, no significant change. Pneumothorax or pleural effusion. No acute osseous abnormality.
[2020-09-29] MEDS: CALCIUM ACETATE 667 MG TAB PO SCH ×4 (08:24→21:41)
[2020-09-29] MEDS: LEVOTHYROXINE 50 MCG TAB PO SCH (08:24)
[2020-09-29] MEDS ORDERED: MIDAZOLAM 2 MG/2 ML VIAL ONE (08:35)
[2020-09-29] MEDS ORDERED: ROCURONIUM 10 MG/ML (5 ML VIAL) IV ONE (08:35)
--- NOTE | 2020-09-29 09:15 | P.PN ---
Subjective Progress Note Date: 09/29/20 Principal diagnosis: Respiratory failure Patient was taken to the operating room for planned tracheostomy and PEG tube placement. Patient was transferred onto the operating table. At that time patient was noted to be significantly hypoxic. Despite optimization by anesthesia we could not get the patient's oxygen saturation above mid 80s and the patient still clinically appeared somewhat hypoxic although improved from initial transfer. Stat portable chest x-ray was obtained in the room which showed no definite acute changes to explain the patient's hypoxia. Objective - Vital Signs Vital signs: Vital Signs Temp 98.6 F 09/29/20 04:00 Pulse 100 09/29/20 08:19 Resp 31 H 09/29/20 07:00 BP 129/71 09/29/20 07:00 Pulse Ox 95 09/29/20 07:00 Intake & Output 09/28/20 09/29/20 09/29/20 18:59 06:59 18:59 Intake Total 1438.724 993 16 Output Total 1800 5 Balance -361.276 988 16 Weight 151.3 kg Intake: IV 192 192 16 0.9 Normal Saline 72 72 6 Pressure Bag Sodium Chloride 0.9% 1, 120 120 10 000 ml @ 10 mls/hr IV . Q24H [facility]OR[facility] Rx#:[id number] Intake, IV Titration 726.724 700 Amount Amiodarone 360 mg In 400 400 Dextrose 5% in Water 200 ml @ 1 MG/MIN 33.333 mls/ hr IV .Q6H JORDANA Rx#: [id number] Dexmedetomidine/0.9% NaCl 76.407 300 (Pmx) 400 mcg In Empty Bag 1 bag @ Titrate IV . Q0M [facility]OR[facility] Rx#:[id number] propofoL 1,000 mg In 250.317 Empty Bag 1 bag @ Titrate IV .Q0M JORDANA Rx#: [id number] Tube Feeding 115 56 Hemodialysis 300 Other 105 45 Output: Urine 0 5 Hemodialysis 1800 Other: Voiding Method Indwelling Catheter Indwelling Catheter # Bowel Movements 2 ABP, PAP, CO, CI - Last Documented Arterial Blood Pressure 122/74 - Exam Chest: Decreased breath sounds bilaterally but symmetric rise of the chest Abdomen: Distended, nontender - Labs CBC & Chem 7: 09/29/20 04:20 09/29/20 04:20 Labs: Abnormal Lab Results - Last 24 Hours (Table) 09/28/20 09/28/2021 Range/Units 09:10 17:49 00:13 WBC (3.8-10.6) k/uL RBC (4.30-5.90) m/uL Hgb (13.0-17.5) gm/dL Hct (39.0-53.0) % Neutrophils # (1.3-7.7) k/uL ABG pCO2 (35-45) mmHg ABG pO2 (83-108) mmHg ABG HCO3 (21-25) mmol/L ABG O2 Saturation (94-97) % Sodium (137-145) mmol/L Potassium (3.5-5.1) mmol/L Chloride (98-107) mmol/L Carbon Dioxide (22-30) mmol/L BUN (9-20) mg/dL Creatinine (0.66-1.25) mg/dL POC Glucose (mg/dL) 102 H 120 H (75-99) mg/dL Calcium (8.4-10.2) mg/dL Phosphorus (2.5-4.5) mg/dL Total Bilirubin (0.2-1.3) mg/dL AST (17-59) U/L Alkaline Phosphatase (38-126) U/L Total Protein (6.3-8.2) g/dL Albumin (3.5-5.0) g/dL Triglycerides 987.0 H (0.0-149.0) mg/dL 09/29/20 09/29/20 09/29/20 Range/Units 04:20 04:20 05:52 WBC 13.0 H (3.8-10.6) k/uL RBC 2.79 L (4.30-5.90) m/uL Hgb 8.8 L (13.0-17.5) gm/dL Hct 26.4 L (39.0-53.0) % Neutrophils # 10.8 H (1.3-7.7) k/uL ABG pCO2 29 L (35-45) mmHg ABG pO2 110 H (83-108) mmHg ABG HCO3 19 L (21-25) mmol/L ABG O2 Saturation 97.8 H (94-97) % Sodium 131 L (137-145) mmol/L Potassium 5.5 H (3.5-5.1) mmol/L Chloride 97 L (98-107) mmol/L Carbon Dioxide 18 L (22-30) mmol/L BUN 87 H (9-20) mg/dL Creatinine 7.23 H* (0.66-1.25) mg/dL POC Glucose (mg/dL) (75-99) mg/dL Calcium 7.5 L (8.4-10.2) mg/dL Phosphorus 10.7 H* (2.5-4.5) mg/dL Total Bilirubin 1.4 H (0.2-1.3) mg/dL AST 318 H (17-59) U/L Alkaline Phosphatase 336 H (38-126) U/L Total Protein 5.0 L (6.3-8.2) g/dL Albumin 2.3 L (3.5-5.0) g/dL Triglycerides (0.0-149.0) mg/dL 09/29/20 Range/Units 06:26 WBC (3.8-10.6) k/uL RBC (4.30-5.90) m/uL Hgb (13.0-17.5) gm/dL Hct (39.0-53.0) % Neutrophils # (1.3-7.7) k/uL ABG pCO2 (35-45) mmHg ABG pO2 (83-108) mmHg ABG HCO3 (21-25) mmol/L ABG O2 Saturation (94-97) % Sodium (137-145) mmol/L Potassium (3.5-5.1) mmol/L Chloride (98-107) mmol/L Carbon Dioxide (22-30) mmol/L BUN (9-20) mg/dL Creatinine (0.66-1.25) mg/dL POC Glucose (mg/dL) 113 H (75-99) mg/dL Calcium (8.4-10.2) mg/dL Phosphorus (2.5-4.5) mg/dL Total Bilirubin (0.2-1.3) mg/dL AST (17-59) U/L Alkaline Phosphatase (38-126) U/L Total Protein (6.3-8.2) g/dL Albumin (3.5-5.0) g/dL Triglycerides (0.0-149.0) mg/dL Microbiology - Last 24 Hours (Table) 09/27/20 15:30 Gram Stain - Preliminary Sputum Sputum Culture - Preliminary Assessment and Plan (1) Acute respiratory failure Narrative/Plan: Case was discussed with pulmonary. Case was aborted at this time until patient can be optimized. We'll discuss with family. We'll follow closely and reschedule once condition improved. Current Visit: Yes Status: Acute Code(s): J96.00 - ACUTE RESPIRATORY FAILURE, UNSP W HYPOXIA OR HYPERCAPNIA SNOMED Code(s): 06651187
--- NOTE | 2020-09-29 09:32 | XR ---
EXAMINATION TYPE: XR chest 1V portable DATE OF EXAM: 09/29/2020 COMPARISON: 09/29/2020 and prior HISTORY: Tube placement TECHNIQUE: Single frontal view of the chest is obtained. FINDINGS AND IMPRESSION: The tip of the endotracheal tube appears to have advanced in the interval now terminating 2.1 cm abov e anand. Right side jugular CVC tip the distal SVC. There are 2 left-sided central venous catheters with the tips projecting over the expected region of the proximal superior vena cava. Nasogastric tube courses into the left upper abdomen. Interval worsening of pulmonary edema is noted. Overall worsening of bibasilar opacities are evident in the left lower lobe which is likely a combina tion of atelectasis and/or pneumonia. Suspect mucous plug in the left lower lobe supplying bronchi. No pneumothorax or pleural effusion seen. Mild cardiomegaly stable. Mediastinal silhouette within normal. No acute osseous abnormality.
--- NOTE | 2020-09-29 09:44 | P.PN ---
Subjective Progress Note Date: 09/29/20 59-year-old male patient, post cardiac arrest, V. fib arrest, who is admitted intensive care unit since 09/17/2020 and the patient is being seen in follow-up today on 09/25/2020. The patient is still intubated on a mechanical ventilator. The patient was a V. fib arrest, received CPR on the scene, defibrillated, received epinephrine and was brought into us in his been in the intensive care unit setting. He turned out to be a case of a ST segment elevation myocardial infarction. He received immediate cardiac catheterization and stenting of the circumflex artery. The patient this morning is sedated with propofol running at 60 mcg/kg per minute. Is also on fentanyl 1 mcg/mg/h. He is off pressors. His cardiac rhythm is sinus with a left bundle branch block pattern. Over the past 24 hours, the patient was given dobutamine to augment his cardiac output. He went into atrial fibrillation with RVR. He was given a bolus of amiodarone and he is currently back into normal sinus rhythm. In terms of his vent support, the patient remains on mechanical ventilator. At this point in time, the pa tient is an assist-control mode at the rate of 28 and a tidal volume of 500 and FiO2 of 50% with a PEEP of 10. The blood gases from today showing a pH of 7.31 with a pCO2 of 35 and pO2 of 122. He is in renal failure. He is receiving dialysis periodically. He received dialysis on 09/20/2020 and 09/21/2020. Dialysis was attempted yesterday, unable to complete as the patient's catheter was kinked and Changes will be done today surgery. He will probably end up having another session of hemodialysis today. When the process of getting the patient sedation holiday in his neurologic function will be reevaluated. CAT scan of the brain another EEG is in progress for today. He is on Levemir in [facility] for blood sugar control. He is on vital high protein at the rate of 27 mL an hour. No abdominal distention. No nausea or vomiting. No fever or chills. Chest x-ray is showing cardiomegaly with small bilateral pleural effusions on some atelectatic changes in lung bases bilaterally. Orogastric tube is in a good location. He does have small pleural effusions. There is stable cardiomegaly. In terms of his blood work, the white cell count is at 9.2 with a hemoglobin of 9.6. Sodium is at 129, potassium at 5.3, serum bicarbonate is 14 with a BUN of 78 and a creatinine of 9.67. On today's evaluation of 09/26/2020, the patient is being given another sedation holiday. The process yesterday got interrupted as the patient became basically a mechanical ventilator and the patient went into atrial fibrillation with rapid ventricular response. At that point, the patient was placed back on sedation with accommodation propofol and fentanyl and he was kept on the sedation throughout the day. This morning, the plan is to get him off the sedation again and utilizing Precedex if needed. A repeat CAT scan of the brain was ordered for today and the CAT scan showed age-related atrophy and chronic small vessel ischemic changes without any acute intracranial process. No evidence of any acute bleeding. On today's evaluation, the patient is grimacing to deep painful stimulation that was applied to his fingers and toes. For now, the patient is calm and comfortable. He is synchronous with the mechanical ventilator. He is on assist control mode of ventilation, at the rate of 28 and a tidal volume of 500 and FiO2 of 40% with a PEEP of 5. The blood gases from today showed a pH of 7.29 with a pCO2 of 41 and pO2 of 75. This was on FiO2 of 40%. The patient's chest x-ray showed stable findings along with some pulmonary a congestion and scattered infiltrates and interstitial edema. The orotracheal tube was in a good location. NG tube was also in a good location. The patient is currently in normal sinus rhythm. He is on amiodarone drip at 1 mg per minute and based on cardiology recommendation, we'll continue the amiodarone drip at a maintenance of 1 mg per minute. A minimal amount of urine output. The patient remains in acute kidney injury. Creatinine is up to 7.98. Underwent hemodialysis yesterday. A another session of hemodialysis will be given to him today. He is afebrile. He is receiving enteral feeding for nutritional support. He continues to be on a combination of aspirin and Plavix. He is on no pressors for now. Had a discussion with the . Updated her on his condition. There is a concern of ongoing hypoxic encephalopathy. Meanwhile, the patient remains on Levemir insulin for blood sugar control in addition a slight scale insulin coverage. The patient is receiving vital high protein which is currently at goal. Current cardiac rhythm is sinus with a bundle- branch block pattern. 09/27/2020, I'm seeing the patient for a follow-up. Note that the patient is a case of a cardiac arrest with a STEMI requiring emergent cardiac catheterization and stenting of the circumflex. During the course of his treatment, the patient required insertion and removal of an impeller device. In any rate, there was a concern of the patient was having anoxic encephalopathy. Yesterday, I took him off the fentanyl and the propofol and I switched him to Precedex. As the weaning was being done, the patient was given a sedation holiday and he got to the point where he was awake and following some simple commands. He would open up his eyes. He would move his toes and fingers upon demand. This was also confirmed by neurology. As such, we believe that there is adequate neurologic functions. Nevertheless, as the patient was taken off the sedation, he required more sedation he was placed on Precedex and ultimately were unable to control his restlessness and the patient was having increased tachypnea tachycardia and episodes of atrial fibrillation with rapid ventricular response. He was also desaturating as the patient was becoming asynchronous with a mechanical ventilator. I had to put him back on propofol is currently running at 45 mcg/kg per minute. He stayed on propofol throughout the night. Meanwhile, he remains on assist control mode at a rate of 22 with a tidal volume of 500 and FiO2 of 70% with a PEEP of 10. The blood gases from today showing a pH of 7.35 with a pCO2 of 40 and pO2 of 129. The chest x-ray showing development of a right lower lobe pulmonary infiltrate. ET tube is in a good location. There is a suspicion of a right lower lobe pneumonia. White cell count is up to 15.2. Mild dynamically, he is on no pressors. He is back in normal sinus rhythm. He remains on amiodarone 1 mg per minute per proposal analyst recommendation. He does have a bundle-branch block pattern. A repeat echocardiogram was done today and his EF is still poor, less than 20%. He remains in renal failure. He is requiring daily hemodialysis. Underwent hemodialysis yesterday with ultrafiltration of 500 mL. He continues to have extensive swelling in the upper and lower extremity and in his scrotum. On today's evaluation, he is also noted to have diminished pulses in lower extremities bilaterally. Doppler significant drop in the right foot. Right foot is cold and an same time there is some skin mottling and cyanosis in his toes mainly on the right. As mentioned, the right foot is cold yet Doppler signals are present. His previously inserted and patella was in the right femoral artery. There is also some rash developing over his upper thighs and abdomen and trunk and shoulders and upper extremities. He is receiving enteral feeding for nutritional support and is currently on vital high protein running at 23 mL an hour. Urine output is 5 mL an hour. 09/28/2020, the patient is being seen for a follow-up. He has been kept on propofol 45 mg/kg/m. We were unable to control his condition off sedation. He went on Precedex and he was still quite restless and agitated and at that point he was switched again to propofol. This morning is much more comfortable. Nevertheless, blood was noted to be lipemic. We're going to check her triglyceride levels and switch this patient back to Precedex. Note that while on Precedex, the patient was able to follow some simple commands. The ultimate plan is to proceed with a pack and a tracheostomy tube insertion and this is scheduled to be done tomorrow. Meanwhile, the patient underwent hemodialysis today. A total of 1.5 L of ultrafiltration was performed. His cardiac rhythm remains atrial fibrillation and amiodarone is running at 1 mg per minute. He remains on a mechanical ventilator on assist control mode with a rate of 22 and tidal volume of 550 FiO2 of 60% with a PEEP of 10. Blood gas showed a pH of 7.37 with a pCO2 of 34 and pO2 of 100. The patient is also receiving enteral feeding for nutritional support with Nepro 20 mL an hour. Urine output is minimal. The patient had some ischemic changes in the lower extremity especially on the right. On today's evaluation, the right foot is warmer compared to yesterday and there are Doppler signals bilaterally. Arterial Dopplers abdominal pain and the results of the pending in the patient is being seen by vascular surgery. He is on no pressors for now. On today's chest x- ray, there is the blood of the right lung consolidation. The patient was producing purulent mucus yesterday. Sputum cultures have been sent. The patient was started on IV Zosyn. Rest or secretions improved since yesterday. White cell count currently is at 14.8 with hemoglobin of 9.4. 09/29/2020, the patient was taken to the operating room for a PEG and trach and the patient was brought back without having the procedure done. Note that the patient was quite stable earlier this morning. He was on Precedex which was running at 0.6 mcg/kg/h. He was able to respond and follows some simple commands. By the time he arrived to the operating room, the patient was placed on the operating room table and he became hypoxic and he developed oxygen desaturation was also stop in the mid 80s. At that point, the procedure was canceled as the patient was transferred back into the intensive care unit. I have an ICU. Currently is on Precedex at 0.7 mcg/kg/h. He was also given Dilaudid 1 mg IV. He is resting comfortably on a mechanical ventilator for now. He is on assist control mode at a rate of 20 with a tidal volume of 600 and FiO2 of 17 with a PEEP of 8. His current pulse ox is 93%. Chest x-ray from today is showing cardiomegaly. There is pulmonary vascular congestion. There is also consolidation of the right lung which we suspected this was related to an underlying pneumonia. There is also bibasilar infiltrates. No pneumothorax. No pleural effusion. ET tube was in a good location. His sputum productions with orotracheal tube has subsided and the cultures that were collected earlier has not resulted in to have positive growth. The patient remains on IV Zosyn as an empiric antibiotic coverage. He is afebrile for now. As mentioned earlier, he is able to communicate once sedation is off and wheezing. Neurologically the patient is intact. In terms of hemodynamics, current rhythm is sinus. He has a bundle-branch block pattern, left-sided and the patient remains on amiodarone 1 mg per minute. His anticoagulation with IV heparin was held as the patient was being considered for a PEG and trach today. I may restart anticoagulation as long as we have a PTT breathing on this patient. Note that his triglyceride levels was up to 987. He was taken off the propofol. He is supposed to undergo dialysis today. He is able to undergo dialysis without any major issues. His BUN is at 87 with a creatinine of 7.2. His sodium level is at 131 with a potassium level of 5.5. Hemoglobin today is at 8.8 with a white cell count of 13.0. The enteral feeding has been held this morning in preparation for PEG and trach. I'm going to start him back on feeding today which is in the form of Nepro at the rate of 23 mL an hour. Objective - Vital Signs Vital signs: Vital Signs Temp 98.6 F 09/29/20 04:00 Pulse 100 09/29/20 08:19 Resp 31 H 09/29/20 07:00 BP 129/71 09/29/20 07:00 Pulse Ox 95 09/29/20 07:00 Intake & Output 09/28/20 09/29/20 09/29/20 18:59 06:59 18:59 Intake Total 1438.724 993 16 Output Total 1800 5 Balance -361.276 988 16 Weight 151.3 kg Intake: IV 192 192 16 0.9 Normal Saline 72 72 6 Pressure Bag Sodium Chloride 0.9% 1, 120 120 10 000 ml @ 10 mls/hr IV . Q24H JORDANA Rx#:[id number] Intake, IV Titration 726.724 700 Amount Amiodarone 360 mg In 400 400 Dextrose 5% in Water 200 ml @ 1 MG/MIN 33.333 mls/ hr IV .Q6H JORDANA Rx#: [id number] Dexmedetomidine/0.9% NaCl 76.407 300 (Pmx) 400 mcg In Empty Bag 1 bag @ Titrate IV . Q0M JORDANA Rx#:[id number] propofoL 1,000 mg In 250.317 Empty Bag 1 bag @ Titrate IV .Q0M JORDANA Rx#: [id number] Tube Feeding 115 56 Hemodialysis 300 Other 105 45 Output: Urine 0 5 Hemodialysis 1800 Other: Voiding Method Indwelling Catheter Indwelling Catheter # Bowel Movements 2 ABP, PAP, CO, CI - Last Documented Arterial Blood Pressure 122/74 - Exam synchronous a mechanical ventilator. Orogastric and orotracheal tube are both in place. Unresponsive, currently on precedex. Calm and comfortable. He was sedated, comfortable nonacute distress Head exam was generally normal. There was no scleral icterus or corneal arcus. Mucous membranes were moist. Neck was supple and without jugular venous distension, thyromegaly, or carotid bruits. Carotids were easily palpable bilaterally. There was no adenopathy. Lungs were clear to auscultation and percussion, and with normal diaphragmatic excursion. No wheezes or rales were noted. Cardiac exam revealed the PMI to be normally situated and sized. The rhythm was regular and no extrasystoles were noted during several minutes of auscultation. The first and second heart sounds were normal and physiologic splitting of the second heart sound was noted. There were no murmurs, rubs, clicks, or gallops. Abdominal exam revealed normal bowel sounds. The abdomen was soft, non-tender, and without masses, organomegaly, or appreciable enlargement of the abdominal aorta. Examination of the extremities revealed easily palpable radial, femoral and pedal pulses. There was no cyanosis, clubbing or edema.The patient has a temporary dialysis catheter in the left femoral vein neurologically, the examination is limited as the patient is currently on precedex. Arousal and awake - Labs CBC & Chem 7: 09/29/20 04:20 09/29/20 04:20 Labs: Abnormal Lab Results - Last 24 Hours (Table) 09/28/20 09/28/20 09/29/20 Range/Units 09:10 17:49 00:13 WBC (3.8-10.6) k/uL RBC (4.30-5.90) m/uL Hgb (13.0-17.5) gm/dL Hct (39.0-53.0) % Neutrophils # (1.3-7.7) k/uL ABG pCO2 (35-45) mmHg ABG pO2 (83-108) mmHg ABG HCO3 (21-25) mmol/L ABG O2 Saturation (94-97) % Sodium (137-145) mmol/L Potassium (3.5-5.1) mmol/L Chloride (98-107) mmol/L Carbon Dioxide (22-30) mmol/L BUN (9-20) mg/dL Creatinine (0.66-1.25) mg/dL POC Glucose (mg/dL) 102 H 120 H (75-99) mg/dL Calcium (8.4-10.2) mg/dL Phosphorus (2.5-4.5) mg/dL Total Bilirubin (0.2-1.3) mg/dL AST (17-59) U/L Alkaline Phosphatase (38-126) U/L Total Protein (6.3-8.2) g/dL Albumin (3.5-5.0) g/dL Triglycerides 987.0 H (0.0-149.0) mg/dL 09/29/20 09/29/20 09/29/20 Range/Units 04:20 04:20 05:52 WBC 13.0 H (3.8-10.6) k/uL RBC 2.79 L (4.30-5.90) m/uL Hgb 8.8 L (13.0-17.5) gm/dL Hct 26.4 L (39.0-53.0) % Neutrophils # 10.8 H (1.3-7.7) k/uL ABG pCO2 29 L (35-45) mmHg ABG pO2 110 H (83-108) mmHg ABG HCO3 19 L (21-25) mmol/L ABG O2 Saturation 97.8 H (94-97) % Sodium 131 L (137-145) mmol/L Potassium 5.5 H (3.5-5.1) mmol/L Chloride 97 L (98-107) mmol/L Carbon Dioxide 18 L (22-30) mmol/L BUN 87 H (9-20) mg/dL Creatinine 7.23 H* (0.66-1.25) mg/dL POC Glucose (mg/dL) (75-99) mg/dL Calcium 7.5 L (8.4-10.2) mg/dL Phosphorus 10.7 H* (2.5-4.5) mg/dL Total Bilirubin 1.4 H (0.2-1.3) mg/dL AST 318 H (17-59) U/L Alkaline Phosphatase 336 H (38-126) U/L Total Protein 5.0 L (6.3-8.2) g/dL Albumin 2.3 L (3.5-5.0) g/dL Triglycerides (0.0-149.0) mg/dL 09/29/20 Range/Units 06:26 WBC (3.8-10.6) k/uL RBC (4.30-5.90) m/uL Hgb (13.0-17.5) gm/dL Hct (39.0-53.0) % Neutrophils # (1.3-7.7) k/uL ABG pCO2 (35-45) mmHg ABG pO2 (83-108) mmHg ABG HCO3 (21-25) mmol/L ABG O2 Saturation (94-97) % Sodium (137-145) mmol/L Potassium (3.5-5.1) mmol/L Chloride (98-107) mmol/L Carbon Dioxide (22-30) mmol/L BUN (9-20) mg/dL Creatinine (0.66-1.25) mg/dL POC Glucose (mg/dL) 113 H (75-99) mg/dL Calcium (8.4-10.2) mg/dL Phosphorus (2.5-4.5) mg/dL Total Bilirubin (0.2-1.3) mg/dL AST (17-59) U/L Alkaline Phosphatase (38-126) U/L Total Protein (6.3-8.2) g/dL Albumin (3.5-5.0) g/dL Triglycerides (0.0-149.0) mg/dL Microbiology - Last 24 Hours (Table) 09/27/20 15:30 Gram Stain - Preliminary Sputum Sputum Culture - Preliminary Assessment and Plan Plan: 1 V. fib cardiac arrest,, secondary to ST segment elevation myocardial infarctio n, status post cardiac catheterization and stenting of the circumflex coronary artery, status post basement removal of a Impala device. For now, the patient is in a normal sinus rhythm. Hemodynamically stable on no pressors. He has developed significant cardiomyopathy with impaired LV function and an ejection fraction of less than 20%. Echocardiogram. Yesterday and still showing impaired LV function with poor ejection fraction. The patient is having short runs of atrial fibrillation for that reason the patient is demented on amiodarone drip at 1 mg per minute. Morning, the patient is in a normal sinus rhythm with an LBBB pattern. I'm going to take him off the amiodarone drip and put him on oral amiodarone. 2 acute hypoxic respiratory failure secondary to above, remains intubated on a mechanical ventilator, with a constellation of the right lung pneumonia/ she is currently on IV Zosyn. Sputum cultures been negative. 3 Hypoxic encephalopathy, improving and the patient is unresponsive off sedation. Currently on Precedex. 4 severe ischemic cardiomyopathy with an ejection fraction of less than 20% 5 acute kidney injury secondary to cardiac arrest induced ATN. Currently on hemodialysis, the patient remains oliguric , the patient is undergoing hemodialysis almost daily another session of hemodialysis will be done today 6 shock liver, recovered 7 Paroxysmal atrial fibrillation, current rhythm 8 Left bundle branch block pattern 9 Hypothyroidism 10 history of hypertension 11 anion gap metabolic acidosis secondary to above, improved 12 fluid overload with extensive edema in the lower extremities and upper extremities in the scrotum, improving with dialysis 13 rash, stable, Improved 14 diminished pulses in lower extremity especially in the right foot with Doppler signal is present, no acute ischemic changes and a legs and the feet are warm bilaterally with adequate pulses. Plan Continue ventilator support Events leading leading to the cancellation of the procedure was noted. I think the patient was suboptimally sedated and probably related have a component of some fluid overload/CHF attributed to his hypoxemia. Currently is improved. He is going to undergo hemodialysis today. I'm going to coordinate this again with general surgery to try to get him back for a PEG and trach over the next 24-48 hours. Aborted discussed this with general surgeon. Would also involve anesthesia. Would ultimately like to have this patient have a tracheostomy and PEG tube inserted. Meanwhile, he will be kept sedated with Awaiting the sputum Gram stain culture Continue IV Zosyn as an empiric antibiotic coverage restart IV heparin Vascular surgery evaluation regarding the diminished pulses in lower extremity especially in the right foot and an arterial Doppler was also obtained by cardiology , ischemic changes improved compared to yesterday Continue aspirin and Plavix I will update the family on his condition Hemodialysis today Enteral feeding for nutritional support We'll continue to follow make further recommendations based on his progress. New the IV amiodarone for this patient oral amiodarone Critically care evaluation that was on a more than 30 minutes Time with Patient: Greater than 30
--- NOTE | 2020-09-29 09:59 | P.PN ---
Subjective Progress Note Date: 09/29/20 Patient was scheduled for tracheostomy and PEG tube placement today. Unfortunately he started the setting in the OR and the procedure was aborted. Objective - Vital Signs Vital signs: Vital Signs Temp 98.6 F 09/29/20 04:00 Pulse 100 09/29/20 08:19 Resp 31 H 09/29/20 07:00 BP 129/71 09/29/20 07:00 Pulse Ox 95 09/29/20 07:00 Intake & Output 09/28/20 09/29/20 09/29/20 18:59 06:59 18:59 Intake Total 1438.724 993 16 Output Total 1800 5 Balance -361.276 988 16 Weight 151.3 kg Intake: IV 192 192 16 0.9 Normal Saline 72 72 6 Pressure Bag Sodium Chloride 0.9% 1, 120 120 10 000 ml @ 10 mls/hr IV . Q24H [facility] Rx#:[id number] Intake, IV Titration 726.724 700 Amount Amiodarone 360 mg In 400 400 Dextrose 5% in Water 200 ml @ 1 MG/MIN 33.333 mls/ hr IV .Q6H [facility] Rx#: [id number] Dexmedetomidine/0.9% NaCl 76.407 300 (Pmx) 400 mcg In Empty Bag 1 bag @ Titrate IV . Q0M [facility] Rx#:[id number] propofoL 1,000 mg In 250.317 Empty Bag 1 bag @ Titrate IV .Q0M [facility] Rx#: [id number] Tube Feeding 115 56 Hemodialysis 300 Other 105 45 Output: Urine 0 5 Hemodialysis 1800 Other: Voiding Method Indwelling Catheter Indwelling Catheter # Bowel Movements 2 ABP, PAP, CO, CI - Last Documented Arterial Blood Pressure 122/74 - Labs CBC & Chem 7: 09/29/20 04:20 09/29/20 04:20 Labs: Abnormal Lab Results - Last 24 Hours (Table) 09/28/20 09/28/20 09/29/20 Range/Units 09:10 17:49 00:13 WBC (3.8-10.6) k/uL RBC (4.30-5.90) m/uL Hgb (13.0-17.5) gm/dL Hct (39.0-53.0) % Neutrophils # (1.3-7.7) k/uL ABG pCO2 (35-45) mmHg ABG pO2 (83-108) mmHg ABG HCO3 (21-25) mmol/L ABG O2 Saturation (94-97) % Sodium (137-145) mmol/L Potassium (3.5-5.1) mmol/L Chloride (98-107) mmol/L Carbon Dioxide (22-30) mmol/L BUN (9-20) mg/dL Creatinine (0.66-1.25) mg/dL POC Glucose (mg/dL) 102 H 120 H (75-99) mg/dL Calcium (8.4-10.2) mg/dL Phosphorus (2.5-4.5) mg/dL Total Bilirubin (0.2-1.3) mg/dL AST (17-59) U/L Alkaline Phosphatase (38-126) U/L Total Protein (6.3-8.2) g/dL Albumin (3.5-5.0) g/dL Triglycerides 987.0 H (0.0-149.0) mg/dL 09/29/20 09/29/20 09/29/20 Range/Units 04:20 04:20 05:52 WBC 13.0 H (3.8-10.6) k/uL RBC 2.79 L (4.30-5.90) m/uL Hgb 8.8 L (13.0-17.5) gm/dL Hct 26.4 L (39.0-53.0) % Neutrophils # 10.8 H (1.3-7.7) k/uL ABG pCO2 29 L (35-45) mmHg ABG pO2 110 H (83-108) mmHg ABG HCO3 19 L (21-25) mmol/L ABG O2 Saturation 97.8 H (94-97) % Sodium 131 L (137-145) mmol/L Potassium 5.5 H (3.5-5.1) mmol/L Chloride 97 L (98-107) mmol/L Carbon Dioxide 18 L (22-30) mmol/L BUN 87 H (9-20) mg/dL Creatinine 7.23 H* (0.66-1.25) mg/dL POC Glucose (mg/dL) (75-99) mg/dL Calcium 7.5 L (8.4-10.2) mg/dL Phosphorus 10.7 H* (2.5-4.5) mg/dL Total Bilirubin 1.4 H (0.2-1.3) mg/dL AST 318 H (17-59) U/L Alkaline Phosphatase 336 H (38-126) U/L Total Protein 5.0 L (6.3-8.2) g/dL Albumin 2.3 L (3.5-5.0) g/dL Triglycerides (0.0-149.0) mg/dL 09/29/20 Range/Units 06:26 WBC (3.8-10.6) k/uL RBC (4.30-5.90) m/uL Hgb (13.0-17.5) gm/dL Hct (39.0-53.0) % Neutrophils # (1.3-7.7) k/uL ABG pCO2 (35-45) mmHg ABG pO2 (83-108) mmHg ABG HCO3 (21-25) mmol/L ABG O2 Saturation (94-97) % Sodium (137-145) mmol/L Potassium (3.5-5.1) mmol/L Chloride (98-107) mmol/L Carbon Dioxide (22-30) mmol/L BUN (9-20) mg/dL Creatinine (0.66-1.25) mg/dL POC Glucose (mg/dL) 113 H (75-99) mg/dL Calcium (8.4-10.2) mg/dL Phosphorus (2.5-4.5) mg/dL Total Bilirubin (0.2-1.3) mg/dL AST (17-59) U/L Alkaline Phosphatase (38-126) U/L Total Protein (6.3-8.2) g/dL Albumin (3.5-5.0) g/dL Triglycerides (0.0-149.0) mg/dL Microbiology - Last 24 Hours (Table) 09/27/20 15:30 Gram Stain - Preliminary Sputum Sputum Culture - Preliminary Assessment and Plan Assessment: Patient is a 59-year-old male with a history of hypertension, hypothyroidism, and obesity who presented to the ER after cardiac arrest in the field. He had multiple rounds of CPR, Epi, and Defib prior to obtaining ROSC. It appears that his down time in the field was approximately 30 minutes on review of the EMS run sheet. He was intubated and sedated he underwent a left heart cath with stent to the LAD and impella placement. Echocardiogram demonstrated an EF of less than 20% with global hypokenesis. He was determined to be in cardiogenic shock requiring dopamine, dobutamine, and levophed. He has required a Nimbex drip to maintain adequate ventilation until 09/20/20. He demonstrated shock liver on arrival. He has also had progressive anuric renal failure, nephrology was consulted HD was initiated on 09/21/20. He had one abnormal EEG with worsening of EEG on 09/20/20. We have been unable to wean sedation due to agitation and there are concerns for severe anoxic encephalopathy. His CXR was worsening and procalcitonin was elevated and he was started on zosyn with concerns for possibl e underlying PNA. He had not been awake or following commands with sedation holidays. Below is the list list of his medical problems addressed during this hospitalization V. fib arrest due to ST segment elevated myocardial infarction status post PCI to the circumflex and impella placement Acute systolic congestive heart failure Ischemic cardiomyopathy with ejection fraction less than 20% Cardiogenic shock Cold and mottled right foot - dopamine off 09/23/20, dobutamine, levophed off by 09/22/20 - cardio following closely - ASA, Plavix, lipitor - Arterial duplex and vascular consultation -Attempt to place trach and PEG 09/29 reported secondary to hypoxia and worsening respiratory status on the vent Paroxysmal atrial fibrillation requiring IV amiodarone. Cardiology following closely Hypoxic/Anoxic encephalopathy, improved. Patient is awake and following simple commands when off sedation - neuro recs - continue with sedation holidays - CT head with no acute findings Acute kidney injury secondary to hypoperfusion and likely ATN requiring hemodialysis Hyperphosphatemia Hyperkalemia - nephrology following closely -PhosLo 3 times a day - Avoid nephrotoxic agents - maintain map >65 Acute hypoxic respiratory failure Pneumonia possible gram negative, completed treatment - Zosyn IV started on September 27 - pulm recs following closely Anemia - Thrombocytopenia - follow CBC - no indication for transfusion at this point in time. Generalized Dermatitis, improved with IV steroids Morbid obesity with BMI 37.7 Shock liver, resolved Poor overall prognosis. DVT prophylaxis: heparin Discussed with: nursing A total of 35 minutes was spent on the care of this complex patient more than 50% of the time was spent in counseling and care coordination.
[2020-09-29] MEDS: ASPIRIN 81 MG PO SCH (10:31)
[2020-09-29] MEDS: PANTOPRAZOLE 40 MG/10 ML VIAL IVP SCH (10:31)
[2020-09-29] MEDS: CHLORHEXIDINE GLUCONATE 15 ML CUP MUCOUS MEM SCH ×2 (10:31→21:40)
[2020-09-29] MEDS: PIPERACILLIN-TAZOBACTAM 3.375 GM in SODIUM CHLORIDE 0.9% 100 ML IVPB SCH ×2 (10:31→21:38)
[2020-09-29] MEDS: CLOPIDOGREL 75 MG TAB PO SCH (10:31)
--- NOTE | 2020-09-29 10:50 | P.PN ---
Subjective Patient is seen in follow-up for acute kidney injury. Remains off vasopressors. On amiodarone drip for A. fib. Trach and PEG not then today due to inadequate sedation. Tolerating dialysis well. Vital signs: Stable. General: The patient appeared well nourished and normally developed. HEENT: Intubated. LUNGS: Breath sounds decreased. HEART: Irregular rate and rhythm. ABDOMEN: Soft, no distention. EXTREMITITES: 1+ edema. Objective - Vital Signs Vital signs: Vital Signs Temp 98.8 F 09/29/20 10:00 Pulse 76 09/29/20 10:30 Resp 24 09/29/20 10:30 BP 111/89 09/29/20 10:30 Pulse Ox 98 09/29/20 10:30 Intake & Output 09/28/20 09/29/20 09/29/20 18:59 06:59 18:59 Intake Total 1438.724 993 32 Output Total 1800 5 Balance -361.276 988 32 Weight 151.3 kg Intake: IV 192 192 32 0.9 Normal Saline 72 72 12 Pressure Bag Sodium Chloride 0.9% 1, 120 120 20 000 ml @ 10 mls/hr IV . Q24H [facility] Rx#:[id number] Intake, IV Titration 726.724 700 Amount Amiodarone 360 mg In 400 400 Dextrose 5% in Water 200 ml @ 1 MG/MIN 33.333 mls/ hr IV .Q6H [facility] Rx#: [id number] Dexmedetomidine/0.9% NaCl 76.407 300 (Pmx) 400 mcg In Empty Bag 1 bag @ Titrate IV . Q0M [facility] Rx#:[id number] propofoL 1,000 mg In 250.317 Empty Bag 1 bag @ Titrate IV .Q0M [facility] Rx#: [id number] Tube Feeding 115 56 Hemodialysis 300 Other 105 45 Output: Urine 0 5 Hemodialysis 1800 Other: Voiding Method Indwelling Catheter Indwelling Catheter # Bowel Movements 2 ABP, PAP, CO, CI - Last Documented Arterial Blood Pressure 124/65 - Labs CBC & Chem 7: 09/29/20 04:20 09/29/20 04:20 Labs: Abnormal Lab Results - Last 24 Hours (Table) 09/28/20 09/28/20 09/29/20 Range/Units 09:10 17:49 00:13 WBC (3.8-10.6) k/uL RBC (4.30-5.90) m/uL Hgb (13.0-17.5) gm/dL Hct (39.0-53.0) % Neutrophils # (1.3-7.7) k/uL ABG pCO2 (35-45) mmHg ABG pO2 (83-108) mmHg ABG HCO3 (21-25) mmol/L ABG O2 Saturation (94-97) % Sodium (137-145) mmol/L Potassium (3.5-5.1) mmol/L Chloride (98-107) mmol/L Carbon Dioxide (22-30) mmol/L BUN (9-20) mg/dL Creatinine (0.66-1.25) mg/dL POC Glucose (mg/dL) 102 H 120 H (75-99) mg/dL Calcium (8.4-10.2) mg/dL Phosphorus (2.5-4.5) mg/dL Total Bilirubin (0.2-1.3) mg/dL AST (17-59) U/L Alkaline Phosphatase (38-126) U/L Total Protein (6.3-8.2) g/dL Albumin (3.5-5.0) g/dL Triglycerides 987.0 H (0.0-149.0) mg/dL 09/29/20 09/29/20 09/29/20 Range/Units 04:20 04:20 05:52 WBC 13.0 H (3.8-10.6) k/uL RBC 2.79 L (4.30-5.90) m/uL Hgb 8.8 L (13.0-17.5) gm/dL Hct 26.4 L (39.0-53.0) % Neutrophils # 10.8 H (1.3-7.7) k/uL ABG pCO2 29 L (35-45) mmHg ABG pO2 110 H (83-108) mmHg ABG HCO3 19 L (21-25) mmol/L ABG O2 Saturation 97.8 H (94-97) % Sodium 131 L (137-145) mmol/L Potassium 5.5 H (3.5-5.1) mmol/L Chloride 97 L (98-107) mmol/L Carbon Dioxide 18 L (22-30) mmol/L BUN 87 H (9-20) mg/dL Creatinine 7.23 H* (0.66-1.25) mg/dL POC Glucose (mg/dL) (75-99) mg/dL Calcium 7.5 L (8.4-10.2) mg/dL Phosphorus 10.7 H* (2.5-4.5) mg/dL Total Bilirubin 1.4 H (0.2-1.3) mg/dL AST 318 H (17-59) U/L Alkaline Phosphatase 336 H (38-126) U/L Total Protein 5.0 L (6.3-8.2) g/dL Albumin 2.3 L (3.5-5.0) g/dL Triglycerides (0.0-149.0) mg/dL 09/29/20 Range/Units 06:26 WBC (3.8-10.6) k/uL RBC (4.30-5.90) m/uL Hgb (13.0-17.5) gm/dL Hct (39.0-53.0) % Neutrophils # (1.3-7.7) k/uL ABG pCO2 (35-45) mmHg ABG pO2 (83-108) mmHg ABG HCO3 (21-25) mmol/L ABG O2 Saturation (94-97) % Sodium (137-145) mmol/L Potassium (3.5-5.1) mmol/L Chloride (98-107) mmol/L Carbon Dioxide (22-30) mmol/L BUN (9-20) mg/dL Creatinine (0.66-1.25) mg/dL POC Glucose (mg/dL) 113 H (75-99) mg/dL Calcium (8.4-10.2) mg/dL Phosphorus (2.5-4.5) mg/dL Total Bilirubin (0.2-1.3) mg/dL AST (17-59) U/L Alkaline Phosphatase (38-126) U/L Total Protein (6.3-8.2) g/dL Albumin (3.5-5.0) g/dL Triglycerides (0.0-149.0) mg/dL Microbiology - Last 24 Hours (Table) 09/27/20 15:30 Gram Stain - Preliminary Sputum Sputum Culture - Preliminary Assessment and Plan Plan: Assessment: 1. Acute kidney injury secondary to ATN secondary to cardiac arrest and cardiogenic shock. Oliguric. Started on hemodialysis September 21. 2. Status post cardiac arrest. 3. Coronary artery disease status post catheterization with stent placement to the circumflex on 09/17/2020. 4. Cardiogenic shock status post dopamine and dobutamine. Ejection fraction 20-25%. 5. Metabolic acidosis secondary to acute kidney injury. Status post bicarb drip. 6. Acute hypoxic respiratory failure. 7. Hypocalcemia secondary to acute kidney injury. Replaced. Better. 8. Hyperphosphatemia secondary to acute kidney injury maintained on PhosLo. 9. A. fib with RVR maintained on amiodarone drip. 10. Hyponatremia secondary to acute kidney injury. Hypervolemic. Plan: Maintain tube feeds. No response in urine output with IV Lasix. Currently seen was undergoing hemodialysis. Continue with ultrafiltration as able to tolerate. 2 A of sodium bicarb IV push today. Add oral bicarb as well. Prognosis guarded.
[2020-09-29 11:00] LABS: Glucose,Whole Blood 99 mg/dL (75-99)
[2020-09-29] MEDS ORDERED: fentaNYL (PF) 2,500 MCG in SODIUM CHLORIDE 0.9% 200 ML IV SCH (11:00)
[2020-09-29] MEDS ORDERED: fentaNYL (PF). 1,000 MCG in SODIUM CHLORIDE 0.9% 80 ML IV SCH (11:00)
[2020-09-29] MEDS ORDERED: SODIUM BICARB 8.4% 50 ML SYR (1 MEQ/ML) ONE (11:22)
[2020-09-29] MEDS: AMIODARONE 200 MG TAB PO SCH ×2 (11:24→21:40)
--- NOTE | 2020-09-29 12:59 | P.PN ---
Subjective Progress Note Date: 09/29/20 The patient seen at bedside and per the patient nurse he is on max dose of Precedex 0.7mcg/kg/hr and just received 1mg of Dilaudid because of his restless. Per the nurse she stated that the he was nodding appropriately, opening and closing his eyes to commands. He was suppose to get PEG atn Trach this morning but was so restless that it was aborted. He is also getting dialysis upon seeing him. Objective - Vital Signs Vital signs: Vital Signs Temp 98.8 F 09/29/20 10:00 Pulse 88 09/29/20 11:52 Resp 28 H 09/29/20 11:00 BP 111/89 09/29/20 11:00 Pulse Ox 95 09/29/20 11:00 Intake & Output 09/28/20 09/29/20 09/29/20 18:59 06:59 18:59 Intake Total 1438.724 993 48 Output Total 1800 5 3 Balance -361.276 988 45 Weight 151.3 kg Intake: IV 192 192 48 0.9 Normal Saline 72 72 18 Pressure Bag Sodium Chloride 0.9% 1, 120 120 30 000 ml @ 10 mls/hr IV . Q24H [facility] Rx#:[id number] Intake, IV Titration 726.724 700 Amount Amiodarone 360 mg In 400 400 Dextrose 5% in Water 200 ml @ 1 MG/MIN 33.333 mls/ hr IV .Q6H [facility] Rx#: [id number] Dexmedetomidine/0.9% NaCl 76.407 300 (Pmx) 400 mcg In Empty Bag 1 bag @ Titrate IV . Q0M [facility] Rx#:[id number] propofoL 1,000 mg In 250.317 Empty Bag 1 bag @ Titrate IV .Q0M [facility] Rx#: [id number] Tube Feeding 115 56 Hemodialysis 300 Other 105 45 Output: Urine 0 5 3 Hemodialysis 1800 Other: Voiding Method Indwelling Catheter Indwelling Catheter # Bowel Movements 2 ABP, PAP, CO, CI - Last Documented Arterial Blood Pressure 121/70 - Exam GENERAL: The patient is lying in bed, obese and seems to be in respiratory distress. LUNG: Clear to auscultation bilaterally no wheezing noted throughout. Not labored breathing. He is intubated and on ventilator. Seems to be tachypneic. NEUROLOGICAL: Is limited since is on IV Precedex 0.7mcg/kg/h and recently received 1mg of Dilaudid.. Higher mental function: The patient is comatose GCS 5 (E3, VT1, M1). He would open eyes to voice but not following commands and not allowing to communicate. Cranial nerves: The primary gaze is midline and is tracking throughout the room. The pupils are round, equal and reactive to light. The pupils are around 3-4mm bilaterally. +ve corneal reflex to threat bilaterally. No facial weakness noted. Positive gag reflex. Is breathing over the vent. Motor: Gait is deferred because of condition. The strength is hard to assess but not withdrawing to any of extremities to painful stimuli. Normal tone and bulk. No spontaneous movement. Cerebellum: Could not assess. Sensation: He frowns to painful stimuli throughout. Reflexes (right/left): 1+ throughout. Plantars are downgoing bilaterally. IMAGING/OTHER TESTS CT of the head on 09/26/2020 ordered by the ICU team is reported as age-related atrophic and chronic small vessel ischemic change without acute intracranial process seen at this time. Limited 2-D echo toay was reported as left ventricle is mildly dilated. Moderate concentric left ventricular hypertrophy. Overall left ventricle s ystolic function is severely impaired with ejection fraction of 20-25%. Global hypokinesis - Labs CBC & Chem 7: 09/29/20 04:20 09/29/20 04:20 Labs: Abnormal Lab Results - Last 24 Hours (Table) 09/28/20 09/28/20 09/29/20 Range/Units 09:10 17:49 00:13 WBC (3.8-10.6) k/uL RBC (4.30-5.90) m/uL Hgb (13.0-17.5) gm/dL Hct (39.0-53.0) % Neutrophils # (1.3-7.7) k/uL ABG pCO2 (35-45) mmHg ABG pO2 (83-108) mmHg ABG HCO3 (21-25) mmol/L ABG O2 Saturation (94-97) % Sodium (137-145) mmol/L Potassium (3.5-5.1) mmol/L Chloride (98-107) mmol/L Carbon Dioxide (22-30) mmol/L BUN (9-20) mg/dL Creatinine (0.66-1.25) mg/dL POC Glucose (mg/dL) 102 H 120 H (75-99) mg/dL Calcium (8.4-10.2) mg/dL Phosphorus (2.5-4.5) mg/dL Total Bilirubin (0.2-1.3) mg/dL AST (17-59) U/L Alkaline Phosphatase (38-126) U/L Total Protein (6.3-8.2) g/dL Albumin (3.5-5.0) g/dL Triglycerides 987.0 H (0.0-149.0) mg/dL 09/29/20 09/29/20 09/29/20 Range/Units 04:20 04:20 05:52 WBC 13.0 H (3.8-10.6) k/uL RBC 2.79 L (4.30-5.90) m/uL Hgb 8.8 L (13.0-17.5) gm/dL Hct 26.4 L (39.0-53.0) % Neutrophils # 10.8 H (1.3-7.7) k/uL ABG pCO2 29 L (35-45) mmHg ABG pO2 110 H (83-108) mmHg ABG HCO3 19 L (21-25) mmol/L ABG O2 Saturation 97.8 H (94-97) % Sodium 131 L (137-145) mmol/L Potassium 5.5 H (3.5-5.1) mmol/L Chloride 97 L (98-107) mmol/L Carbon Dioxide 18 L (22-30) mmol/L BUN 87 H (9-20) mg/dL Creatinine 7.23 H* (0.66-1.25) mg/dL POC Glucose (mg/dL) (75-99) mg/dL Calcium 7.5 L (8.4-10.2) mg/dL Phosphorus 10.7 H* (2.5-4.5) mg/dL Total Bilirubin 1.4 H (0.2-1.3) mg/dL AST 318 H (17-59) U/L Alkaline Phosphatase 336 H (38-126) U/L Total Protein 5.0 L (6.3-8.2) g/dL Albumin 2.3 L (3.5-5.0) g/dL Triglycerides (0.0-149.0) mg/dL 09/29/20 Range/Units 06:26 WBC (3.8-10.6) k/uL RBC (4.30-5.90) m/uL Hgb (13.0-17.5) gm/dL Hct (39.0-53.0) % Neutrophils # (1.3-7.7) k/uL ABG pCO2 (35-45) mmHg ABG pO2 (83-108) mmHg ABG HCO3 (21-25) mmol/L ABG O2 Saturation (94-97) % Sodium (137-145) mmol/L Potassium (3.5-5.1) mmol/L Chloride (98-107) mmol/L Carbon Dioxide (22-30) mmol/L BUN (9-20) mg/dL Creatinine (0.66-1.25) mg/dL POC Glucose (mg/dL) 113 H (75-99) mg/dL Calcium (8.4-10.2) mg/dL Phosphorus (2.5-4.5) mg/dL Total Bilirubin (0.2-1.3) mg/dL AST (17-59) U/L Alkaline Phosphatase (38-126) U/L Total Protein (6.3-8.2) g/dL Albumin (3.5-5.0) g/dL Triglycerides (0.0-149.0) mg/dL Microbiology - Last 24 Hours (Table) 09/27/20 15:30 Gram Stain - Final Sputum Sputum Culture - Final Assessment and Plan Assessment: * Hypoxic/anoxic encephalopathy status post cardiac arrest. On sedation holiday he will follow some simple commands and per nurse today in AM he was following commands appropriately. * Also component of altered mental status is metabolic encephalopathy and medication effect (Precedex and just received Dilaudid) * Electrolyte imbalance (hyponatremia 131, and hyperkalemia, hyperphosphatemia * Status post out of the Hospital cardio pulmonary arrest, secondary to ST segment elevation myocardial infarction status post cardiopulmonary resuscitation with return responses circulation and stent placement in the circumflex coronary artery * Severe ischemic cardiomyopathy (with EF <20%) * Acute hypoxic respiratory failure, intubated and on mechanical ventilation * Cardiogenic shock * Acute kidney injury with initiation of hemodialysis * Paroxymal A-fib * Shock liver * History of hypertension * History of hypertelorism Plan: * From my side I never saw the patient following the commands for me but I was told by nursing staff/ICU ELECTROPLATER that he does follow commands. Sedation and just received Dilaudid and is On IV Precedex (max dose) and that could be the cause so therefore I notified the nurse to avoid sedation and see whether the patient does follow commands within 2 hours and if does not to get a repeat CT of the head. * We'll defer the electrolytes and imbalance correction to the nephrology team as well as ICU/primary team. * Cardiology is on board. * Nephrology is on board * Cardiology is on board * Will defer the rest of the medical management to the ICU team and primary te am. The condition is very guarded. The plan is discussed with his nurse. Fadi Johnson MD Neuro-Hospitalist Time with Patient: Less than 30
[2020-09-29] MEDS: HEPARIN SOD,PORK IN 0.45% NACL 25,000 UNIT in 0.45% NACL 1 250ML.BAG IV SCH ×2 (15:08→19:49)
--- NOTE | 2020-09-29 15:53 | P.PN ---
Progress Note - Text Progress Note Date: 09/29/20 Patient seen and examined. Right chest wall catheter clean, dry and intact. Per technical applications scientist the catheter worked well without issues. Will sign off.
[2020-09-29] MEDS: fentaNYL (PF) 2,500 MCG in SODIUM CHLORIDE 0.9% 200 ML IV SCH (18:00)
--- NOTE | 2020-09-29 18:32 | PN ---
PROGRESS NOTE Moreno is a 59-year-old patient who was admitted to hospital with acute myocardial infarction, currently intubated on vent. He has respiratory failure and has underlying atrial fibrillation, currently on IV heparin. The patient was supposed to have a trach and PEG. This procedure has been canceled because the patient was not adequately sedated as per the ICU nurse. PHYSICAL EXAMINATION: Patient is in atrial fibrillation with a heart rate of 88 beats per minute. Blood pressure 111/89, respiratory rate of 20. Chest exam reveals diminished air entry at the bases. Heart exam reveals first and second heart sounds, irregular rhythm. Abdomen: Soft. Exam of extremities revealed bilateral pitting edema. LABS: Labs show that the hemoglobin is 8.8, platelet count is 359, BUN is 87, creatinine 7.2, potassium of 5.5. ASSESSMENT: Status post ischemic cardiomyopathy with severe LV dysfunction, persistent atrial fibrillation. Vent requiring respiratory failure, status post acute myocardial infarction. PLAN: Patient will continue the amiodarone and aspirin, Plavix, IV heparin. MMODL / IJN: [id number] /
[2020-09-29] MEDS: NOREPINEPHRINE 8 MG in SODIUM CHLORIDE 0.9% 250 ML IV SCH (19:43)
[2020-09-29] MEDS: CLEVIDIPINE BUTYRATE 25 MG in EMPTY BAG 1 BAG IV SCH (19:43)
[2020-09-29] MEDS: SODIUM CHLORIDE 0.9% 500 ML IV SCH (19:43)
[2020-09-29 20:51] LABS: ABG Base Excess -2.7 mmol/L; ABG HCO3 23 mmol/L (21-25); ABG Oxygen Saturation 99.3 % (94-97); ABG PCO2 40 mmHg (35-45); ABG PH 7.36 (7.35-7.45); ABG PO2 188 mmHg (83-108); ABG TCO2 24 mmol/L (19-24); Allen Test Performed? Yes
[2020-09-29] MEDS: SODIUM BICARBONATE TAB 650 MG TAB PO SCH (21:41)
[2020-09-29 23:26] LABS: Glucose,Whole Blood 110 mg/dL (75-99)
[2020-09-30] MEDS: HEPARIN SODIUM 1,000 UN/ML (10ML VL) IV PRN (00:25)
[2020-09-30] MEDS: DEXMEDETOMIDINE/0.9% NACL(PMX) 400 MCG in EMPTY BAG 1 BAG IV SCH ×5 (00:25→20:37)
[2020-09-30] MEDS: IPRATROPIUM-ALBUTEROL 3 ML NEB INHALATION SCH ×5 (03:52→19:35)
[2020-09-30 04:38] LABS: HCT 25.8 % (39.0-53.0); HGB 8.5 gm/dL (13.0-17.5); MCH 31.5 pg (25.0-35.0); MCHC 33.1 g/dL (31.0-37.0); MCV 95.2 fL (80.0-100.0); Mean Platelet Volume 8.3; Platelet Count 442 k/uL (150-450); RBC 2.71 m/uL (4.30-5.90); WBC 14.9 k/uL (3.8-10.6)
[2020-09-30] MEDS: fentaNYL (PF) 2,500 MCG in SODIUM CHLORIDE 0.9% 200 ML IV SCH ×2 (05:00→19:45)
[2020-09-30 05:23] LABS: ABG Base Excess -3.5 mmol/L; ABG HCO3 21 mmol/L (21-25); ABG Oxygen Saturation 96.1 % (94-97); ABG PCO2 36 mmHg (35-45); ABG PH 7.39 (7.35-7.45); ABG PO2 88 mmHg (83-108); ABG TCO2 23 mmol/L (19-24); Allen Test Performed? Yes
[2020-09-30] MEDS: LEVOTHYROXINE 50 MCG TAB PO SCH (06:52)
[2020-09-30 06:59] LABS: Calcium 8.2 mg/dL (8.4-10.2); Potassium 5.7 mmol/L (3.5-5.1)
[2020-09-30] MEDS: HYDROmorphone 0.5 MG/0.5 ML SYRINGE IVP PRN ×2 (07:12→10:46)
--- NOTE | 2020-09-30 07:53 | P.PN ---
Subjective Progress Note Date: 09/30/20 Principal diagnosis: Respiratory failure Patient awake on the ventilator. Oxygen saturations improved. Morning ABGs noted. Patient did have dialysis yesterday. Remains quite edematous however. Objective - Vital Signs Vital signs: Vital Signs Temp 99.1 F 09/30/20 04:00 Pulse 77 09/30/20 07:42 Resp 18 09/30/20 07:00 BP 110/68 09/29/20 20:52 Pulse Ox 93 L 09/30/20 07:00 Intake & Output 09/29/20 09/30/20 09/30/20 18:59 06:59 18:59 Intake Total 418 966.667 107.719 Output Total 3 Balance 415 966.667 107.719 Weight 153 kg Intake: IV 160 166 10 0.9 Normal Saline 60 46 Pressure Bag Sodium Chloride 0.9% 1, 100 120 10 000 ml @ 10 mls/hr IV . Q24H [facility] Rx#:[id number] Intake, IV Titration 100 542.667 83.719 Amount Dexmedetomidine/0.9% NaCl 100 200 (Pmx) 400 mcg In Empty Bag 1 bag @ Titrate IV . Q0M [facility] Rx#:[id number] Heparin Sod,Pork in 0.45% 92.667 NaCl 25,000 unit In 0.45 % NaCl 1 250ml.bag @ 8.13 UNITS/KG/HR 10 mls/hr IV .Q24H [facility] Rx#:[id number] fentaNYL (PF) 2,500 mcg 250.000 83.719 In Sodium Chloride 0.9% 200 ml @ Per Protocol IV .Q0M [facility] Rx#:[id number] Tube Feeding 98 168 14 Other 60 90 Output: Urine 3 Other: Voiding Method Indwelling Catheter Indwelling Catheter ABP, PAP, CO, CI - Last Documented Arterial Blood Pressure 121/71 - Exam Abdomen: Soft, distended, nontender - Labs CBC & Chem 7: 09/30/20 04:25 09/30/20 04:25 Labs: Abnormal Lab Results - Last 24 Hours (Table) 09/29/20 09/29/20 09/30/20 Range/Units 20:48 23:25 04:25 WBC (3.8-10.6) k/uL RBC (4.30-5.90) m/uL Hgb (13.0-17.5) gm/dL Hct (39.0-53.0) % APTT 43.1 H (22.0-30.0) sec ABG pO2 188 H (83-108) mmHg ABG O2 Saturation 99.3 H (94-97) % Potassium (3.5-5.1) mmol/L Carbon Dioxide (22-30) mmol/L BUN (9-20) mg/dL Creatinine (0.66-1.25) mg/dL Glucose (74-99) mg/dL POC Glucose (mg/dL) 110 H (75-99) mg/dL Calcium (8.4-10.2) mg/dL 09/30/20 09/30/20 Range/Units 04:25 04:25 WBC 14.9 H (3.8-10.6) k/uL RBC 2.71 L (4.30-5.90) m/uL Hgb 8.5 L (13.0-17.5) gm/dL Hct 25.8 L (39.0-53.0) % APTT (22.0-30.0) sec ABG pO2 (83-108) mmHg ABG O2 Saturation (94-97) % Potassium 5.7 H (3.5-5.1) mmol/L Carbon Dioxide 19 L (22-30) mmol/L BUN 84 H (9-20) mg/dL Creatinine 6.45 H (0.66-1.25) mg/dL Glucose 104 H (74-99) mg/dL POC Glucose (mg/dL) (75-99) mg/dL Calcium 8.2 L (8.4-10.2) mg/dL Microbiology - Last 24 Hours (Table) 09/27/20 15:30 Gram Stain - Final Sputum Sputum Culture - Final Assessment and Plan (1) Acute respiratory failure Narrative/Plan: Continue optimization of fluid status and pulmonary status. Scheduled for repeat attempts at tracheostomy and PEG tube placement tomorrow after dialysis in the morning. Will follow. Current Visit: Yes Status: Acute Code(s): J96.00 - ACUTE RESPIRATORY FAILURE, UNSP W HYPOXIA OR HYPERCAPNIA SNOMED Code(s): 77625139
[2020-09-30] MEDS ORDERED: INSULIN REGULAR 100 UNIT/ML VIAL (IV) IV ONE (08:31)
[2020-09-30] MEDS ORDERED: DEXTROSE 50% SYRINGE 50 ML IVP STA (08:31)
[2020-09-30] MEDS ORDERED: SODIUM BICARB 8.4% 50 ML SYR (1 MEQ/ML) IV STA ×2 (08:32→09:19)
[2020-09-30] MEDS: NOREPINEPHRINE 8 MG in SODIUM CHLORIDE 0.9% 250 ML IV SCH (09:03)
--- NOTE | 2020-09-30 09:04 | P.PN ---
Subjective Progress Note Date: 09/30/20 59-year-old male patient, post cardiac arrest, V. fib arrest, who is admitted intensive care unit since 09/17/2020 and the patient is being seen in follow-up today on 09/25/2020. The patient is still intubated on a mechanical ventilator. The patient was a V. fib arrest, received CPR on the scene, defibrillated, received epinephrine and was brought into us in his been in the intensive care unit setting. He turned out to be a case of a ST segment elevation myocardial infarction. He received immediate cardiac catheterization and stenting of the circumflex artery. The patient this morning is sedated with propofol running at 60 mcg/kg per minute. Is also on fentanyl 1 mcg/mg/h. He is off pressors. His cardiac rhythm is sinus with a left bundle branch block pattern. Over the past 24 hours, the patient was given dobutamine to augment his cardiac output. He went into atrial fibrillation with RVR. He was given a bolus of amiodarone and he is currently back into normal sinus rhythm. In terms of his vent support, the patient remains on mechanical ventilator. At this point in time, the pa tient is an assist-control mode at the rate of 28 and a tidal volume of 500 and FiO2 of 50% with a PEEP of 10. The blood gases from today showing a pH of 7.31 with a pCO2 of 35 and pO2 of 122. He is in renal failure. He is receiving dialysis periodically. He received dialysis on 09/20/2020 and 09/21/2020. Dialysis was attempted yesterday, unable to complete as the patient's catheter was kinked and Changes will be done today surgery. He will probably end up having another session of hemodialysis today. When the process of getting the patient sedation holiday in his neurologic function will be reevaluated. CAT scan of the brain another EEG is in progress for today. He is on Levemir in [facility] for blood sugar control. He is on vital high protein at the rate of 27 mL an hour. No abdominal distention. No nausea or vomiting. No fever or chills. Chest x-ray is showing cardiomegaly with small bilateral pleural effusions on some atelectatic changes in lung bases bilaterally. Orogastric tube is in a good location. He does have small pleural effusions. There is stable cardiomegaly. In terms of his blood work, the white cell count is at 9.2 with a hemoglobin of 9.6. Sodium is at 129, potassium at 5.3, serum bicarbonate is 14 with a BUN of 78 and a creatinine of 9.67. On today's evaluation of 09/26/2020, the patient is being given another sedation holiday. The process yesterday got interrupted as the patient became basically a mechanical ventilator and the patient went into atrial fibrillation with rapid ventricular response. At that point, the patient was placed back on sedation with accommodation propofol and fentanyl and he was kept on the sedation throughout the day. This morning, the plan is to get him off the sedation again and utilizing Precedex if needed. A repeat CAT scan of the brain was ordered for today and the CAT scan showed age-related atrophy and chronic small vessel ischemic changes without any acute intracranial process. No evidence of any acute bleeding. On today's evaluation, the patient is grimacing to deep painful stimulation that was applied to his fingers and toes. For now, the patient is calm and comfortable. He is synchronous with the mechanical ventilator. He is on assist control mode of ventilation, at the rate of 28 and a tidal volume of 500 and FiO2 of 40% with a PEEP of 5. The blood gases from today showed a pH of 7.29 with a pCO2 of 41 and pO2 of 75. This was on FiO2 of 40%. The patient's chest x-ray showed stable findings along with some pulmonary a congestion and scattered infiltrates and interstitial edema. The orotracheal tube was in a good location. NG tube was also in a good location. The patient is currently in normal sinus rhythm. He is on amiodarone drip at 1 mg per minute and based on cardiology recommendation, we'll continue the amiodarone drip at a maintenance of 1 mg per minute. A minimal amount of urine output. The patient remains in acute kidney injury. Creatinine is up to 7.98. Underwent hemodialysis yesterday. A another session of hemodialysis will be given to him today. He is afebrile. He is receiving enteral feeding for nutritional support. He continues to be on a combination of aspirin and Plavix. He is on no pressors for now. Had a discussion with the . Updated her on his condition. There is a concern of ongoing hypoxic encephalopathy. Meanwhile, the patient remains on Levemir insulin for blood sugar control in addition a slight scale insulin coverage. The patient is receiving vital high protein which is currently at goal. Current cardiac rhythm is sinus with a bundle- branch block pattern. 09/27/2020, I'm seeing the patient for a follow-up. Note that the patient is a case of a cardiac arrest with a STEMI requiring emergent cardiac catheterization and stenting of the circumflex. During the course of his treatment, the patient required insertion and removal of an impeller device. In any rate, there was a concern of the patient was having anoxic encephalopathy. Yesterday, I took him off the fentanyl and the propofol and I switched him to Precedex. As the weaning was being done, the patient was given a sedation holiday and he got to the point where he was awake and following some simple commands. He would open up his eyes. He would move his toes and fingers upon demand. This was also confirmed by neurology. As such, we believe that there is adequate neurologic functions. Nevertheless, as the patient was taken off the sedation, he required more sedation he was placed on Precedex and ultimately were unable to control his restlessness and the patient was having increased tachypnea tachycardia and episodes of atrial fibrillation with rapid ventricular response. He was also desaturating as the patient was becoming asynchronous with a mechanical ventilator. I had to put him back on propofol is currently running at 45 mcg/kg per minute. He stayed on propofol throughout the night. Meanwhile, he remains on assist control mode at a rate of 22 with a tidal volume of 500 and FiO2 of 70% with a PEEP of 10. The blood gases from today showing a pH of 7.35 with a pCO2 of 40 and pO2 of 129. The chest x-ray showing development of a right lower lobe pulmonary infiltrate. ET tube is in a good location. There is a suspicion of a right lower lobe pneumonia. White cell count is up to 15.2. Mild dynamically, he is on no pressors. He is back in normal sinus rhythm. He remains on amiodarone 1 mg per minute per teacher physically impaired recommendation. He does have a bundle-branch block pattern. A repeat echocardiogram was done today and his EF is still poor, less than 20%. He remains in renal failure. He is requiring daily hemodialysis. Underwent hemodialysis yesterday with ultrafiltration of 500 mL. He continues to have extensive swelling in the upper and lower extremity and in his scrotum. On today's evaluation, he is also noted to have diminished pulses in lower extremities bilaterally. Doppler significant drop in the right foot. Right foot is cold and an same time there is some skin mottling and cyanosis in his toes mainly on the right. As mentioned, the right foot is cold yet Doppler signals are present. His previously inserted and patella was in the right femoral artery. There is also some rash developing over his upper thighs and abdomen and trunk and shoulders and upper extremities. He is receiving enteral feeding for nutritional support and is currently on vital high protein running at 23 mL an hour. Urine output is 5 mL an hour. 09/28/2020, the patient is being seen for a follow-up. He has been kept on propofol 45 mg/kg/m. We were unable to control his condition off sedation. He went on Precedex and he was still quite restless and agitated and at that point he was switched again to propofol. This morning is much more comfortable. Nevertheless, blood was noted to be lipemic. We're going to check her triglyceride levels and switch this patient back to Precedex. Note that while on Precedex, the patient was able to follow some simple commands. The ultimate plan is to proceed with a pack and a tracheostomy tube insertion and this is scheduled to be done tomorrow. Meanwhile, the patient underwent hemodialysis today. A total of 1.5 L of ultrafiltration was performed. His cardiac rhythm remains atrial fibrillation and amiodarone is running at 1 mg per minute. He remains on a mechanical ventilator on assist control mode with a rate of 22 and tidal volume of 550 FiO2 of 60% with a PEEP of 10. Blood gas showed a pH of 7.37 with a pCO2 of 34 and pO2 of 100. The patient is also receiving enteral feeding for nutritional support with Nepro 20 mL an hour. Urine output is minimal. The patient had some ischemic changes in the lower extremity especially on the right. On today's evaluation, the right foot is warmer compared to yesterday and there are Doppler signals bilaterally. Arterial Dopplers abdominal pain and the results of the pending in the patient is being seen by vascular surgery. He is on no pressors for now. On today's chest x- ray, there is the blood of the right lung consolidation. The patient was producing purulent mucus yesterday. Sputum cultures have been sent. The patient was started on IV Zosyn. Rest or secretions improved since yesterday. White cell count currently is at 14.8 with hemoglobin of 9.4. 09/29/2020, the patient was taken to the operating room for a PEG and trach and the patient was brought back without having the procedure done. Note that the patient was quite stable earlier this morning. He was on Precedex which was running at 0.6 mcg/kg/h. He was able to respond and follows some simple commands. By the time he arrived to the operating room, the patient was placed on the operating room table and he became hypoxic and he developed oxygen desaturation was also stop in the mid 80s. At that point, the procedure was canceled as the patient was transferred back into the intensive care unit. I have an ICU. Currently is on Precedex at 0.7 mcg/kg/h. He was also given Dilaudid 1 mg IV. He is resting comfortably on a mechanical ventilator for now. He is on assist control mode at a rate of 20 with a tidal volume of 600 and FiO2 of 17 with a PEEP of 8. His current pulse ox is 93%. Chest x-ray from today is showing cardiomegaly. There is pulmonary vascular congestion. There is also consolidation of the right lung which we suspected this was related to an underlying pneumonia. There is also bibasilar infiltrates. No pneumothorax. No pleural effusion. ET tube was in a good location. His sputum productions with orotracheal tube has subsided and the cultures that were collected earlier has not resulted in to have positive growth. The patient remains on IV Zosyn as an empiric antibiotic coverage. He is afebrile for now. As mentioned earlier, he is able to communicate once sedation is off and wheezing. Neurologically the patient is intact. In terms of hemodynamics, current rhythm is sinus. He has a bundle-branch block pattern, left-sided and the patient remains on amiodarone 1 mg per minute. His anticoagulation with IV heparin was held as the patient was being considered for a PEG and trach today. I may restart anticoagulation as long as we have a PTT breathing on this patient. Note that his triglyceride levels was up to 987. He was taken off the propofol. He is supposed to undergo dialysis today. He is able to undergo dialysis without any major issues. His BUN is at 87 with a creatinine of 7.2. His sodium level is at 131 with a potassium level of 5.5. Hemoglobin today is at 8.8 with a white cell count of 13.0. The enteral feeding has been held this morning in preparation for PEG and trach. I'm going to start him back on feeding today which is in the form of Nepro at the rate of 23 mL an hour. 2020, the patient is being seen for a follow-up. The plan is to proceed with a PEG tube a tracheostomy tube insertion tomorrow. The procedure yesterday got complicated as the patient desaturated and operate. This morning, he is on a combination of Precedex and fentanyl drip for sedation. Precedex is running at 0.7 mcg/kg/h and fentanyl is running at 2 mcg/kg/h. He still opens up his eyes. He is partially responsive to painful stimulation and tactile stimulation. Meanwhile, he remains on a mechanical ventilator. He remains on assist control mode at the rate of 20 with a tidal volume of 600 and FiO2 of 50% with a PEEP of 8. Blood gases from this morning show a pH of 7.39 with a pCO2 of 36 and pO2 of 88. No significant orotracheal secretions. Awaiting follow-up chest x-ray from today. Meanwhile, the sputum culture came back negative and the patient was covered empirically with IV Zosyn. He is currently off the amiodarone drip. Cardiac rhythm still in atrial fibrillation which is under better control. He remains also on IV heparin. Note that he goes back and forth between sinus rhythm and atrial fibrillation. His ejection fraction is less than 20%. He is tolerating his enteral feeding for nutritional support. He is afebrile. Potassium today's of 5.7 and this will be treated medically and the patient underwent his hemodialysis yesterday. No dialysis to follow first thing in the morning. BUN is at 84 with a creatinine of 6.4. In regards to his high potassium, he'll be given 10 units of regular insulin along with D50 in addition to 4 bicarb doses of 50 mEq. We'll monitor his potassium level. Objective - Vital Signs Vital signs: Vital Signs Temp 99.1 F 09/30/20 04:00 Pulse 75 09/30/20 07:53 Resp 18 09/30/20 07:00 BP 110/68 09/29/20 20:52 Pulse Ox 93 L 09/30/20 07:00 Intake & Output 09/29/20 09/30/20 09/30/20 18:59 06:59 18:59 Intake Total 418 966.667 107.719 Output Total 3 Balance 415 966.667 107.719 Weight 153 kg Intake: IV 160 166 10 0.9 Normal Saline 60 46 Pressure Bag Sodium Chloride 0.9% 1, 100 120 10 000 ml @ 10 mls/hr IV . Q24H JORDANA Rx#:[id number] Intake, IV Titration 100 542.667 83.719 Amount Dexmedetomidine/0.9% NaCl 100 200 (Pmx) 400 mcg In Empty Bag 1 bag @ Titrate IV . Q0M JORDANA Rx#:[id number] Heparin Sod,Pork in 0.45% 92.667 NaCl 25,000 unit In 0.45 % NaCl 1 250ml.bag @ 8.13 UNITS/KG/HR 10 mls/hr IV .Q24H JORDANA Rx#:[id number] fentaNYL (PF) 2,500 mcg 250.000 83.719 In Sodium Chloride 0.9% 200 ml @ Per Protocol IV .Q0M JORDANA Rx#:[id number] Tube Feeding 98 168 14 Other 60 90 Output: Urine 3 Other: Voiding Method Indwelling Catheter Indwelling Catheter ABP, PAP, CO, CI - Last Documented Arterial Blood Pressure 121/71 - Exam synchronous a mechanical ventilator. Orogastric and orotracheal tube are both in place. currently on precedex. Calm and comfortable. He was sedated, comfortable nonacute distress Head exam was generally normal. There was no scleral icterus or corneal arcus. Mucous membranes were moist. Neck was supple and without jugular venous distension, thyromegaly, or carotid bruits. Carotids were easily palpable bilaterally. There was no adenopathy. Lungs were clear to auscultation and percussion, and with normal diaphragmatic excursion. No wheezes or rales were noted. Cardiac exam revealed the PMI to be normally situated and sized. The rhythm was regular and no extrasystoles were noted during several minutes of auscultation. The first and second heart sounds were normal and physiologic splitting of the second heart sound was noted. There were no murmurs, rubs, clicks, or gallops. Abdominal exam revealed normal bowel sounds. The abdomen was soft, non-tender, and without masses, organomegaly, or appreciable enlargement of the abdominal aorta. Examination of the extremities revealed easily palpable radial, femoral and pedal pulses. There was no cyanosis, clubbing or edema.The patient has a temporary dialysis catheter in the left femoral vein neurologically, the examination is limited as the patient is currently on precedex and fentanyl. Arousal and awake once off sedation. For now, he is under the effect of sedation. Pupils are equal and reactive to light. He gets quite restless and somewhat agitated whenever he is stimulated. Motor function cannot be accurately assessed. We'll keep him on sedation for another 24 hours that he undergoes his PEG and trach. - Labs CBC & Chem 7: 09/30/20 04:25 09/30/20 04:25 Labs: Abnormal Lab Results - Last 24 Hours (Table) 09/29/20 09/29/20 09/30/20 Range/Units 20:48 23:25 04:25 WBC (3.8-10.6) k/uL RBC (4.30-5.90) m/uL Hgb (13.0-17.5) gm/dL Hct (39.0-53.0) % APTT 43.1 H (22.0-30.0) sec ABG pO2 188 H (83-108) mmHg ABG O2 Saturation 99.3 H (94-97) % Potassium (3.5-5.1) mmol/L Carbon Dioxide (22-30) mmol/L BUN (9-20) mg/dL Creatinine (0.66-1.25) mg/dL Glucose (74-99) mg/dL POC Glucose (mg/dL) 110 H (75-99) mg/dL Calcium (8.4-10.2) mg/dL Phosphorus (2.5-4.5) mg/dL 09/30/20 09/30/20 09/30/20 Range/Units 04:25 04:25 04:25 WBC 14.9 H (3.8-10.6) k/uL RBC 2.71 L (4.30-5.90) m/uL Hgb 8.5 L (13.0-17.5) gm/dL Hct 25.8 L (39.0-53.0) % APTT (22.0-30.0) sec ABG pO2 (83-108) mmHg ABG O2 Saturation (94-97) % Potassium 5.7 H (3.5-5.1) mmol/L Carbon Dioxide 19 L (22-30) mmol/L BUN 84 H (9-20) mg/dL Creatinine 6.45 H (0.66-1.25) mg/dL Glucose 104 H (74-99) mg/dL POC Glucose (mg/dL) (75-99) mg/dL Calcium 8.2 L (8.4-10.2) mg/dL Phosphorus 10.8 H* (2.5-4.5) mg/dL Microbiology - Last 24 Hours (Table) 09/27/20 15:30 Gram Stain - Final Sputum Sputum Culture - Final Assessment and Plan Plan: 1 V. fib cardiac arrest,, secondary to ST segment elevation myocardial infarction, status post cardiac catheterization and stenting of the circumflex coronary artery, status post basement removal of a Impala device. For now, the patient is in a normal sinus rhythm. Hemodynamically stable on no pressors. He has developed significant cardiomyopathy with impaired LV function and an ejection fraction of less than 20%. 2 acute hypoxic respiratory failure secondary to above, remains intubated on a mechanical ventilator, with a constellation of the right lung pneumonia/ she is currently on IV Zosyn. Sputum cultures been negative. The follow-up chest x- ray from today. Meanwhile, the patient remains on a PEEP of 8 with an FiO2 of 50%. Blood gases from today was noted. 3 Hypoxic encephalopathy, improving and the patient is unresponsive off sedation. Currently on Precedex and fentanyl. He showed signs of neurologic recovery once taken off the sedation. For that reason, we are going to proceed with a PEG and trach and this will be done hopefully within next 24 hours. He will be taken off IV heparin few hours prior to the procedure. 4 severe ischemic cardiomyopathy with an ejection fraction of less than 20% 5 acute kidney injury secondary to cardiac arrest induced ATN. Currently on hem odialysis, the patient remains oliguric , the patient is undergoing hemodialysis and I had a discussion with nephrology. We'll skip dialysis today. We'll treat is 5.7 potassium level medically. 6 shock liver, recovered 7 Paroxysmal atrial fibrillation, current rhythm remains on oral amiodarone and IV heparin 8 Left bundle branch block pattern 9 Hypothyroidism 10 history of hypertension 11 anion gap metabolic acidosis secondary to above, improved 12 fluid overload with extensive edema in the lower extremities and upper extremities in the scrotum, improving with dialysis 13 rash, stable, Improved 14 diminished pulses in lower extremity especially in the right foot with Doppler signal is present, no acute ischemic changes and a legs and the feet are warm bilaterally with adequate pulses. Plan Continue ventilator support PEG and trach insertion for tomorrow. Continue IV Zosyn as an empiric antibiotic coverage, total of 7 day course IV heparin Vascular surgery evaluation regarding the diminished pulses in lower extremity especially in the right foot and an arterial Doppler was also obtained by cardiology , ischemic changes improved compared to yesterday Continue aspirin and Plavix Hemodialysis performed yesterday and the potassium level be treated medically Enteral feeding for nutritional support We'll continue to follow make further recommendations based on his progress. Critically care evaluation that was on a more than 30 minutes Time with Patient: Greater than 30
--- NOTE | 2020-09-30 09:18 | P.PN ---
Subjective Patient is seen in follow-up for acute kidney injury. Remains off vasopressors. On oral amiodarone for A. fib. Scheduled for tracheostomy and PEG tube placement tomorrow. Receiving tube feeding. Vital signs: Stable. General: The patient appeared well nourished and normally developed. HEENT: Intubated. LUNGS: Breath sounds decreased. HEART: Irregular rate and rhythm. ABDOMEN: Soft, no distention. EXTREMITITES: 1+ edema. Objective - Vital Signs Vital signs: Vital Signs Temp 99.1 F 09/30/20 04:00 Pulse 75 09/30/20 07:53 Resp 18 09/30/20 07:00 BP 110/68 09/29/20 20:52 Pulse Ox 93 L 09/30/20 07:00 Intake & Output 09/29/20 09/30/20 09/30/20 18:59 06:59 18:59 Intake Total 418 966.667 107.719 Output Total 3 Balance 415 966.667 107.719 Weight 153 kg Intake: IV 160 166 10 0.9 Normal Saline 60 46 Pressure Bag Sodium Chloride 0.9% 1, 100 120 10 000 ml @ 10 mls/hr IV . Q24H [facility] Rx#:[id number] Intake, IV Titration 100 542.667 83.719 Amount Dexmedetomidine/0.9% NaCl 100 200 (Pmx) 400 mcg In Empty Bag 1 bag @ Titrate IV . Q0M [facility] Rx#:[id number] Heparin Sod,Pork in 0.45% 92.667 NaCl 25,000 unit In 0.45 % NaCl 1 250ml.bag @ 8.13 UNITS/KG/HR 10 mls/hr IV .Q24H [facility] Rx#:[id number] fentaNYL (PF) 2,500 mcg 250.000 83.719 In Sodium Chloride 0.9% 200 ml @ Per Protocol IV .Q0M [facility] Rx#:[id number] Tube Feeding 98 168 14 Other 60 90 Output: Urine 3 Other: Voiding Method Indwelling Catheter Indwelling Catheter ABP, PAP, CO, CI - Last Documented Arterial Blood Pressure 121/71 - Labs CBC & Chem 7: 09/30/20 04:25 09/30/20 04:25 Labs: Abnormal Lab Results - Last 24 Hours (Table) 09/29/20 09/29/20 09/30/20 Range/Units 20:48 23:25 04:25 WBC (3.8-10.6) k/uL RBC (4.30-5.90) m/uL Hgb (13.0-17.5) gm/dL Hct (39.0-53.0) % APTT 43.1 H (22.0-30.0) sec ABG pO2 188 H (83-108) mmHg ABG O2 Saturation 99.3 H (94-97) % Potassium (3.5-5.1) mmol/L Carbon Dioxide (22-30) mmol/L BUN (9-20) mg/dL Creatinine (0.66-1.25) mg/dL Glucose (74-99) mg/dL POC Glucose (mg/dL) 110 H (75-99) mg/dL Calcium (8.4-10.2) mg/dL Phosphorus (2.5-4.5) mg/dL 09/30/20 09/30/20 09/30/20 Range/Units 04:25 04:25 04:25 WBC 14.9 H (3.8-10.6) k/uL RBC 2.71 L (4.30-5.90) m/uL Hgb 8.5 L (13.0-17.5) gm/dL Hct 25.8 L (39.0-53.0) % APTT (22.0-30.0) sec ABG pO2 (83-108) mmHg ABG O2 Saturation (94-97) % Potassium 5.7 H (3.5-5.1) mmol/L Carbon Dioxide 19 L (22-30) mmol/L BUN 84 H (9-20) mg/dL Creatinine 6.45 H (0.66-1.25) mg/dL Glucose 104 H (74-99) mg/dL POC Glucose (mg/dL) (75-99) mg/dL Calcium 8.2 L (8.4-10.2) mg/dL Phosphorus 10.8 H* (2.5-4.5) mg/dL Microbiology - Last 24 Hours (Table) 09/27/20 15:30 Gram Stain - Final Sputum Sputum Culture - Final Assessment and Plan Plan: Assessment: 1. Acute kidney injury secondary to ATN secondary to cardiac arrest and cardiogenic shock. Oliguric. Started on hemodialysis September 21. 2. Status post cardiac arrest. 3. Coronary artery disease status post catheterization with stent placement to the circumflex on 09/17/2020. 4. Cardiogenic shock status post dopamine and dobutamine. Ejection fraction 20-25%. 5. Metabolic acidosis secondary to acute kidney injury. Status post bicarb drip. 6. Acute hypoxic respiratory failure. 7. Hypocalcemia secondary to acute kidney injury. Replaced. Better. 8. Hyperphosphatemia secondary to acute kidney injury maintained on PhosLo. 9. A. fib with RVR maintained on oral amiodarone. 10. Hyponatremia secondary to acute kidney injury. Hypervolemic. 11. Hyperkalemia secondary to acute kidney injury and metabolic acidosis. Plan: Maintain tube feeds. No response in urine output with IV Lasix. 10 units IV insulin with an amp of D50 now. I will also give him sodium bicarbonate IV push. Plan for hemodialysis tomorrow with goal 2L UF. Repeat labs this afternoon. Scheduled for tracheostomy and PEG tube placement tomorrow. Prognosis guarded.
[2020-09-30] MEDS: ASPIRIN 81 MG PO SCH (09:23)
[2020-09-30] MEDS: AMIODARONE 200 MG TAB PO SCH ×2 (09:23→20:18)
[2020-09-30] MEDS: SODIUM BICARBONATE TAB 650 MG TAB PO SCH ×2 (09:23→20:18)
[2020-09-30] MEDS: CLOPIDOGREL 75 MG TAB PO SCH (09:23)
[2020-09-30] MEDS: CALCIUM ACETATE 667 MG TAB PO SCH ×4 (09:23→22:24)
[2020-09-30] MEDS: HEPARIN SOD,PORK IN 0.45% NACL 25,000 UNIT in 0.45% NACL 1 250ML.BAG IV SCH (09:24)
[2020-09-30] MEDS: PIPERACILLIN-TAZOBACTAM 3.375 GM in SODIUM CHLORIDE 0.9% 100 ML IVPB SCH ×2 (09:24→20:19)
[2020-09-30] MEDS: SODIUM CHLORIDE 0.9% 500 ML IV SCH (09:25)
[2020-09-30] MEDS: PANTOPRAZOLE 40 MG/10 ML VIAL IVP SCH (09:25)
[2020-09-30] MEDS: CHLORHEXIDINE GLUCONATE 15 ML CUP MUCOUS MEM SCH ×2 (09:25→20:18)
--- NOTE | 2020-09-30 09:33 | XR ---
EXAMINATION TYPE: XR chest 1V portable DATE OF EXAM: 09/30/2020 COMPARISON: Chest x-ray 09/29/2020 HISTORY: Intubated, shortness of TECHNIQUE: Single frontal view of the chest is obtained. FINDINGS: Endotracheal tube, central venous catheter on the left, right-sided dialysis catheter, NG tube are overlying appropriate positions. Perihilar airspace disease is present. No evident pneumotho rax or sizable effusion. Heart is enlarged. IMPRESSION: Correlate for volume overload, congestive heart failure, uremia
[2020-09-30] MEDS: CLEVIDIPINE BUTYRATE 25 MG in EMPTY BAG 1 BAG IV SCH (10:29)
--- NOTE | 2020-09-30 11:18 | P.PN ---
Subjective Progress Note Date: 09/30/20 Patient was seen and evaluated by me in the ICU today. He is intubated. He is maintained on fentanyl and Precedex. He was able to open and close his eyes tightly following my commands. He was unable to wiggle his toes or squeeze my fingers otherwise. Objective - Vital Signs Vital signs: Vital Signs Temp 98.9 F 09/30/20 08:00 Pulse 120 H 09/30/20 11:00 Resp 23 09/30/20 11:00 BP 95/58 09/30/20 08:00 Pulse Ox 93 L 09/30/20 11:00 Intake & Output 09/29/20 09/30/20 09/30/20 18:59 06:59 18:59 Intake Total 418 966.667 492.929 Output Total 3 0 Balance 415 966.667 492.929 Weight 153 kg Intake: IV 160 166 58 0.9 Normal Saline 60 46 18 Pressure Bag Sodium Chloride 0.9% 1, 100 120 40 000 ml @ 10 mls/hr IV . Q24H [facility] Rx#:[id number] Intake, IV Titration 100 542.667 406.929 Amount Dexmedetomidine/0.9% NaCl 100 200 100 (Pmx) 400 mcg In Empty Bag 1 bag @ Titrate IV . Q0M [facility] Rx#:[id number] Heparin Sod,Pork in 0.45% 92.667 123.21 NaCl 25,000 unit In 0.45 % NaCl 1 250ml.bag @ 8.13 UNITS/KG/HR 10 mls/hr IV .Q24H [facility] Rx#:[id number] Piperacillin-Tazobactam 3 100 .375 gm In Sodium Chloride 0.9% 100 ml @ 25 mls/hr IVPB Q12HR [facility] Rx #:[id number] fentaNYL (PF) 2,500 mcg 250.000 83.719 In Sodium Chloride 0.9% 200 ml @ Per Protocol IV .Q0M [facility] Rx#:[id number] Tube Feeding 98 168 28 Other 60 90 Output: Urine 3 0 Other: Voiding Method Indwelling Catheter Indwelling Catheter Indwelling Catheter ABP, PAP, CO, CI - Last Documented Arterial Blood Pressure 97/65 - Exam General: The patient is sedated and intubated Eye: there is normal conjunctiva bilaterally. Neck: The neck is supple, there is no JVD. Cardiovascular: Normal S1-S2, no S3-S4, no murmurs. Respiratory: Lungs with mechanical ventilator sounds Gastrointestinal: Abdomen is distended but soft, nontender Musculoskeletal: There is evidence of anasarca up to the abdomen. Skin: Skin is warm and dry - Labs CBC & Chem 7: 09/30/20 04:25 09/30/20 04:25 Labs: Abnormal Lab Results - Last 24 Hours (Table) 09/29/20 09/29/20 09/30/20 Range/Units 20:48 23:25 04:25 WBC (3.8-10.6) k/uL RBC (4.30-5.90) m/uL Hgb (13.0-17.5) gm/dL Hct (39.0-53.0) % APTT 43.1 H (22.0-30.0) sec ABG pO2 188 H (83-108) mmHg ABG O2 Saturation 99.3 H (94-97) % Potassium (3.5-5.1) mmol/L Carbon Dioxide (22-30) mmol/L BUN (9-20) mg/dL Creatinine (0.66-1.25) mg/dL Glucose (74-99) mg/dL POC Glucose (mg/dL) 110 H (75-99) mg/dL Calcium (8.4-10.2) mg/dL Phosphorus (2.5-4.5) mg/dL 09/30/20 09/30/20 09/30/20 Range/Units 04:25 04:25 04:25 WBC 14.9 H (3.8-10.6) k/uL RBC 2.71 L (4.30-5.90) m/uL Hgb 8.5 L (13.0-17.5) gm/dL Hct 25.8 L (39.0-53.0) % APTT (22.0-30.0) sec ABG pO2 (83-108) mmHg ABG O2 Saturation (94-97) % Potassium 5.7 H (3.5-5.1) mmol/L Carbon Dioxide 19 L (22-30) mmol/L BUN 84 H (9-20) mg/dL Creatinine 6.45 H (0.66-1.25) mg/dL Glucose 104 H (74-99) mg/dL POC Glucose (mg/dL) (75-99) mg/dL Calcium 8.2 L (8.4-10.2) mg/dL Phosphorus 10.8 H* (2.5-4.5) mg/dL Microbiology - Last 24 Hours (Table) 09/27/20 15:30 Gram Stain - Final Sputum Sputum Culture - Final Assessment and Plan Assessment: Patient is a 59-year-old male with a history of hypertension, hypothyroidism, and obesity who presented to the ER after cardiac arrest in the field. He had multiple rounds of CPR, Epi, and Defib prior to obtaining ROSC. It appears that his down time in the field was approximately 30 minutes on review of the EMS run sheet. He was intubated and sedated he underwent a left heart cath with stent to the LAD and impella placement. Echocardiogram demonstrated an EF of less than 20% with global hypokenesis. He was determined to be in cardiogenic shock requiring dopamine, dobutamine, and levophed. He has required a Nimbex drip to maintain adequate ventilation until 09/20/20. He demonstrated shock liver on arrival. He has also had progressive anuric renal failure, nephrology was consulted HD was initiated on 09/21/20. He had one abnormal EEG with worsening of EEG on 09/20/20. We have been unable to wean sedation due to agitation and there are concerns for severe anoxic encephalopathy. His CXR was worsening and p rocalcitonin was elevated and he was started on zosyn with concerns for possible underlying PNA. He had not been awake or following commands with sedation holidays. Below is the list list of his medical problems addressed during this hospitalization V. fib arrest due to ST segment elevated myocardial infarction status post PCI to the circumflex and impella placement Acute systolic congestive heart failure Ischemic cardiomyopathy with ejection fraction less than 20% Cardiogenic shock Cold and mottled right foot - dopamine off 09/23/20, dobutamine, levophed off by 09/22/20 - cardio following closely - ASA, Plavix, lipitor - Arterial duplex and vascular consultation -Attempt to place trach and PEG 09/29 reported secondary to hypoxia and worsening respiratory status on the vent -Plan to reattempt trach and PEG tomorrow Paroxysmal atrial fibrillation requiring IV amiodarone. Cardiology following closely Hypoxic/Anoxic encephalopathy, improved. Patient is awake and following simple commands when off sedation - neuro recs - continue with sedation holidays - CT head with no acute findings Acute kidney injury secondary to hypoperfusion and likely ATN requiring hemodialysis Hyperphosphatemia Hyperkalemia - nephrology following closely -PhosLo 4 times a day, dose has been increased over the past few days with minimal improvement in his phosphorus level - Avoid nephrotoxic agents - maintain map >65 Acute hypoxic respiratory failure Pneumonia possible gram negative, completed treatment - Zosyn IV started on September 27 - pul recs following closely Anemia - Thrombocytopenia - follow CBC - no indication for transfusion at this point in time. Generalized Dermatitis, improved with IV steroids Morbid obesity with BMI 37.7 Shock liver, resolved Poor overall prognosis. DVT prophylaxis: heparin Discussed with: nursing A total of 35 minutes was spent on the care of this complex patient more than 50% of the time was spent in counseling and care coordination.
[2020-09-30 11:54] LABS: Glucose,Whole Blood 86 mg/dL (75-99)
--- NOTE | 2020-09-30 14:41 | PN ---
PROGRESS NOTE A 59-year-old gentleman with history of acute myocardial infarction, cardiomyopathy, congestive heart failure, renal failure, respiratory failure and possible hypoxic encephalopathy, who is in the ICU, intubated on vent. Remains in atrial fibrillation with somewhat poorly controlled ventricular rate. PHYSICAL EXAMINATION: Heart rate is 100 beats per minute, blood pressure is 97/65, respiratory rate is 20, O2 saturation is 93% on an FiO2 of 50%. Chest exam reveals diminished air entry bilaterally. Heart exam reveals first and second heart sounds. No gallop. Irregular rhythm. Abdomen is distended. There is extensive edema involving the legs. LABORATORY DATA: Labs show BUN of 84, creatinine 6.4, hemoglobin is 8.5. ASSESSMENT: 1. Persistent atrial fibrillation with reasonably well controlled rate. 2. Ischemic cardiomyopathy with severe LV dysfunction. 3. Hypotension. 4. Respiratory failure. 5. Renal failure. PLAN: Patient will continue the amiodarone and IV heparin. MMODL / IJN: [id number] /
[2020-09-30 15:00] LABS: Calcium 6.9 mg/dL (8.4-10.2); Potassium 5.3 mmol/L (3.5-5.1)
--- NOTE | 2020-09-30 15:08 | P.PN ---
Subjective Progress Note Date: 09/30/20 Patient seen at bedside is accompanied by his . Per the patient's she stated that the yesterday and as well as early in the morning today and he was following commands appropriately nodding appropriately to her. Patient received delighted about 10:46 in the morning today and per the nurse and he is getting around the clock because he gets agitated and restless. He continues to be on Precedex 0.7 mcg/kg/h and is on fentanyl 2 mcg/kg/hr. he is on IV heparin drip. Objective - Vital Signs Vital signs: Vital Signs Temp 98.9 F 09/30/20 12:00 Pulse 100 09/30/20 14:00 Resp 20 09/30/20 14:00 BP 72/57 09/30/20 14:00 Pulse Ox 96 09/30/20 14:00 Intake & Output 09/29/20 09/30/20 09/30/20 18:59 06:59 18:59 Intake Total 418 966.667 570.929 Output Total 3 15 Balance 415 966.667 555.929 Weight 153 kg Intake: IV 160 166 122 0.9 Normal Saline 60 46 42 Pressure Bag Sodium Chloride 0.9% 1, 100 120 80 000 ml @ 10 mls/hr IV . Q24H [facility] Rx#:[id number] Intake, IV Titration 100 542.667 406.929 Amount Dexmedetomidine/0.9% NaCl 100 200 100 (Pmx) 400 mcg In Empty Bag 1 bag @ Titrate IV . Q0M [facility] Rx#:[id number] Heparin Sod,Pork in 0.45% 92.667 123.21 NaCl 25,000 unit In 0.45 % NaCl 1 250ml.bag @ 8.13 UNITS/KG/HR 10 mls/hr IV .Q24H [facility] Rx#:[id number] Piperacillin-Tazobactam 3 100 .375 gm In Sodium Chloride 0.9% 100 ml @ 25 mls/hr IVPB Q12HR [facility] Rx #:[id number] fentaNYL (PF) 2,500 mcg 250.000 83.719 In Sodium Chloride 0.9% 200 ml @ Per Protocol IV .Q0M [facility] Rx#:[id number] Tube Feeding 98 168 42 Other 60 90 Output: Urine 3 15 Other: Voiding Method Indwelling Catheter Indwelling Catheter Indwelling Catheter ABP, PAP, CO, CI - Last Documented Arterial Blood Pressure 80/54 - Exam GENERAL: The patient is lying in bed, obese and seems to be in respiratory distress. LUNG: Clear to auscultation bilaterally no wheezing noted throughout. Not labored breathing. He is intubated and on ventilator. Seems to be tachypneic. NEUROLOGICAL: Is limited since is on IV Precedex 0.7mcg/kg/h, fentanyl 2mcg/kg/hr and recently received 0.5mg of Dilaudid.. Higher mental function: The patient is comatose GCS 6 (E4, VT1, M1). He does not follow commands and not communicating or attempting to. Cranial nerves: The primary gaze is midline and is tracking throughout the room. The pupils are round, equal and reactive to light. The pupils are around 3-4mm bilaterally. +ve corneal reflex to threat bilaterally. No facial weakness noted. Positive gag reflex. Is breathing over the vent. Motor: Gait is deferred because of condition. The strength is hard to assess but not withdrawing to any of extremities to painful stimuli. Normal tone and bulk. No spontaneous movement. Cerebellum: Could not assess. Sensation: He frowns to painful stimuli throughout. Reflexes (right/left): 1+ throughout. Plantars are downgoing bilaterally. IMAGING/OTHER TESTS CT of the head on 09/26/2020 ordered by the ICU team is reported as age-related atrophic and chronic small vessel ischemic change without acute intracranial process seen at this time. Limited 2-D echo toay was reported as left ventricle is mildly dilated. Moderate concentric left ventricular hypertrophy. Overall left ventricle systolic function is severely impaired with ejection fraction of 20-25%. Global hypokinesis - Labs CBC & Chem 7: 09/30/20 04:25 09/30/20 04:25 Labs: Abnormal Lab Results - Last 24 Hours (Table) 09/29/20 09/29/20 09/30/20 Range/Units 20:48 23:25 04:25 WBC (3.8-10.6) k/uL RBC (4.30-5.90) m/uL Hgb (13.0-17.5) gm/dL Hct (39.0-53.0) % APTT 43.1 H (22.0-30.0) sec ABG pO2 188 H (83-108) mmHg ABG O2 Saturation 99.3 H (94-97) % Potassium (3.5-5.1) mmol/L Carbon Dioxide (22-30) mmol/L BUN (9-20) mg/dL Creatinine (0.66-1.25) mg/dL Glucose (74-99) mg/dL POC Glucose (mg/dL) 110 H (75-99) mg/dL Calcium (8.4-10.2) mg/dL Phosphorus (2.5-4.5) mg/dL 09/30/20 09/30/20 09/30/20 Range/Units 04:25 04:25 04:25 WBC 14.9 H (3.8-10.6) k/uL RBC 2.71 L (4.30-5.90) m/uL Hgb 8.5 L (13.0-17.5) gm/dL Hct 25.8 L (39.0-53.0) % APTT (22.0-30.0) sec ABG pO2 (83-108) mmHg ABG O2 Saturation (94-97) % Potassium 5.7 H (3.5-5.1) mmol/L Carbon Dioxide 19 L (22-30) mmol/L BUN 84 H (9-20) mg/dL Creatinine 6.45 H (0.66-1.25) mg/dL Glucose 104 H (74-99) mg/dL POC Glucose (mg/dL) (75-99) mg/dL Calcium 8.2 L (8.4-10.2) mg/dL Phosphorus 10.8 H* (2.5-4.5) mg/dL Microbiology - Last 24 Hours (Table) 09/27/20 15:30 Gram Stain - Final Sputum Sputum Culture - Final Assessment and Plan Assessment: * Hypoxic/anoxic encephalopathy status post cardiac arrest. On sedation holiday he will follow some simple commands and per nurse today in AM he was following commands appropriately. * Also component of altered mental status is metabolic encephalopathy and medication effect (IV Precedex and IV fentanyl and just received Dilaudid) * Electrolyte imbalance (hyponatremia 131, and hyperkalemia, hyperphosphatemia * Status post out of the Hospital cardio pulmonary arrest, secondary to ST segment elevation myocardial infarction status post cardiopulmonary resuscitation with return responses circulation and stent placement in the circumflex coronary artery * Severe ischemic cardiomyopathy (with EF <20%) * Acute hypoxic respiratory failure, intubated and on mechanical ventilation * Cardiogenic shock * Acute kidney injury with initiation of hemodialysis * Paroxymal A-fib * Shock liver * History of hypertension * History of hypertelorism Plan: * Per the patient , ICU nurse practioner and his nurse yesterday that patient following commands appropriately for sedation holiday and is low. I notified the and nurse if sedation if off or low and he does not follow commands will get repeat CT head. * We'll defer the electrolytes and imbalance correction to the nephrology team a s well as ICU/primary team. * Cardiology is on board. * Nephrology is on board * Cardiology is on board * Will defer the rest of the medical management to the ICU team and primary team. The condition is very guarded. The plan is discussed with his and his nurse. Dr. Carlson will take over neurology service starting tomorrow. Fadi Johnson MD Neuro-Hospitalist Time with Patient: Less than 30
[2020-09-30 17:41] LABS: Glucose,Whole Blood 94 mg/dL (75-99)
[2020-10-01] MEDS: IPRATROPIUM-ALBUTEROL 3 ML NEB INHALATION SCH ×7 (00:13→19:41)
[2020-10-01 00:45] LABS: Glucose,Whole Blood 98 mg/dL (75-99)
[2020-10-01] MEDS: DEXMEDETOMIDINE/0.9% NACL(PMX) 400 MCG in EMPTY BAG 1 BAG IV SCH ×6 (01:04→21:22)
[2020-10-01] MEDS: NOREPINEPHRINE 8 MG in SODIUM CHLORIDE 0.9% 250 ML IV SCH ×2 (02:57→16:58)
[2020-10-01 04:41] LABS: HCT 22.2 % (39.0-53.0); HGB 7.8 gm/dL (13.0-17.5); MCH 33.4 pg (25.0-35.0); MCHC 35.3 g/dL (31.0-37.0); MCV 94.7 fL (80.0-100.0); Mean Platelet Volume 8.4; Platelet Count 484 k/uL (150-450); RBC 2.34 m/uL (4.30-5.90); RDW 13.7 % (11.5-15.5); WBC 12.8 k/uL (3.8-10.6)
[2020-10-01 04:50] LABS: INR 1.1 (<1.2); Partial Thromboplastin Time 40.1 sec (22.0-30.0); Prothrombin Time 11.1 sec (9.0-12.0)
[2020-10-01 05:20] LABS: ABG Base Excess -3.7 mmol/L; ABG HCO3 22 mmol/L (21-25); ABG Oxygen Saturation 93.9 % (94-97); ABG PCO2 41 mmHg (35-45); ABG PH 7.34 (7.35-7.45); ABG PO2 80 mmHg (83-108); ABG TCO2 23 mmol/L (19-24); Allen Test Performed? Yes
[2020-10-01 05:45] LABS: Albumin 2.3 g/dL (3.5-5.0); Calcium 7.2 mg/dL (8.4-10.2); Magnesium 2.9 mg/dL (1.6-2.3); Total Bilirubin 1.2 mg/dL (0.2-1.3)
[2020-10-01 05:50] LABS: Phosphorus 12.3 mg/dL (2.5-4.5)
[2020-10-01 05:52] LABS: Potassium 6.2 mmol/L (3.5-5.1)
[2020-10-01] MEDS: HEPARIN SOD,PORK IN 0.45% NACL 25,000 UNIT in 0.45% NACL 1 250ML.BAG IV SCH (06:19)
[2020-10-01] MEDS: fentaNYL (PF) 2,500 MCG in SODIUM CHLORIDE 0.9% 200 ML IV SCH ×2 (07:30→17:32)
[2020-10-01 08:12] LABS: Glucose,Whole Blood 87 mg/dL (75-99)
[2020-10-01] MEDS: CALCIUM ACETATE 667 MG TAB PO SCH ×4 (08:32→21:21)
[2020-10-01] MEDS: PANTOPRAZOLE 40 MG/10 ML VIAL IVP SCH (08:32)
[2020-10-01] MEDS: PIPERACILLIN-TAZOBACTAM 3.375 GM in SODIUM CHLORIDE 0.9% 100 ML IVPB SCH ×2 (08:32→20:04)
[2020-10-01] MEDS: CLOPIDOGREL 75 MG TAB PO SCH (08:32)
[2020-10-01] MEDS: SODIUM BICARBONATE TAB 650 MG TAB PO SCH ×2 (08:32→20:03)
[2020-10-01] MEDS: CHLORHEXIDINE GLUCONATE 15 ML CUP MUCOUS MEM SCH ×2 (08:32→20:03)
[2020-10-01] MEDS: AMIODARONE 200 MG TAB PO SCH ×2 (08:32→20:03)
[2020-10-01] MEDS: ASPIRIN 81 MG PO SCH (08:32)
[2020-10-01] MEDS: LEVOTHYROXINE 50 MCG TAB PO SCH (08:32)
--- NOTE | 2020-10-01 08:41 | XR ---
EXAMINATION TYPE: XR chest 1V portable DATE OF EXAM: 10/01/2020 COMPARISON: 09/30/2020 HISTORY: SOB, Follow Up FINDINGS: Indwelling tubes and catheters are unchanged. Scattered perihilar and basilar infiltrates persist. Stable appearance of the cardio-mediastinal structures at this time. Pleural effusion unchanged. IMPRESSION: 1. Stable portable chest. Clinical correlation and follow up until resolution is recommended.
--- NOTE | 2020-10-01 09:20 | P.PN ---
Subjective Progress Note Date: 10/01/20 Patient was seen and evaluated by me this morning. He is still on fentanyl drip and Precedex drip. He just finished 3 hours of dialysis with approximately 2 L of fluid removed. Lab work done this morning was pre dialysis. No acute events overnight reported by nursing staff. Patient is scheduled for potential trach and PEG placement today. Objective - Vital Signs Vital signs: Vital Signs Temp 98 F 10/01/20 08:40 Pulse 103 H 10/01/20 09:00 Resp 22 10/01/20 09:00 BP 149/89 10/01/20 09:00 Pulse Ox 94 L 10/01/20 09:00 Intake & Output 09/30/20 10/01/20 10/01/20 18:59 06:59 18:59 Intake Total 118.926 8210.349 590.113 Output Total 15 10 2300 Balance 922.825 1719.349 -1709.887 Weight 157.1 kg Intake: IV 202 276 128 0.9 Normal Saline 72 66 18 Pressure Bag Sodium Chloride 0.9% 1, 130 110 10 000 ml @ 10 mls/hr IV . Q24H [facility] Rx#:[id number] Zosyn 100 100 Intake, IV Titration 506.929 865.349 117.113 Amount Dexmedetomidine/0.9% NaCl 100 (Pmx) 400 mcg In Empty Bag 1 bag @ Titrate IV . Q0M [facility] Rx#:[id number] Dexmedetomidine/0.9% NaCl 100 199.068 100 (Pmx) 400 mcg In Empty Bag 1 bag @ Titrate IV . Q0M [facility] Rx#:[id number] Heparin Sod,Pork in 0.45% 123.21 250 17.113 NaCl 25,000 unit In 0.45 % NaCl 1 250ml.bag @ 8.13 UNITS/KG/HR 10 mls/hr IV .Q24H [facility] Rx#:[id number] Piperacillin-Tazobactam 3 100 .375 gm In Sodium Chloride 0.9% 100 ml @ 25 mls/hr IVPB Q12HR [facility] Rx #:[id number] fentaNYL (PF) 2,500 mcg 83.719 416.281 In Sodium Chloride 0.9% 200 ml @ Per Protocol IV .Q0M [facility] Rx#:[id number] Tube Feeding 56 70 0 Hemodialysis 300 Other 60 45 Output: Urine 15 10 0 Hemodialysis 2300 Other: Voiding Method Indwelling Catheter Indwelling Catheter ABP, PAP, CO, CI - Last Documented Arterial Blood Pressure 114/71 - Exam General: The patient is sedated and intubated Eye: there is normal conjunctiva bilaterally. Neck: The neck is supple, there is no JVD. Cardiovascular: Normal S1-S2, no S3-S4, no murmurs. Respiratory: Lungs with mechanical ventilator sounds Gastrointestinal: Abdomen is distended but soft, nontender Musculoskeletal: There is evidence of anasarca up to the abdomen. Skin: Skin is warm and dry - Labs CBC & Chem 7: 10/01/20 04:15 10/01/20 04:15 Labs: Abnormal Lab Results - Last 24 Hours (Table) 09/30/20 10/01/20 10/01/20 Range/Units 14:08 04:15 04:15 WBC 12.8 H (3.8-10.6) k/uL RBC 2.34 L (4.30-5.90) m/uL Hgb 7.8 L (13.0-17.5) gm/dL Hct 22.2 L (39.0-53.0) % Plt Count 484 H (150-450) k/uL APTT (22.0-30.0) sec ABG pH (7.35-7.45) ABG pO2 (83-108) mmHg ABG O2 Saturation (94-97) % Sodium 136 L 135 L (137-145) mmol/L Potassium 5.3 H 6.2 H* (3.5-5.1) mmol/L BUN 97 H 111 H* (9-20) mg/dL Creatinine 6.51 H 7.46 H* (0.66-1.25) mg/dL Calcium 6.9 L 7.2 L (8.4-10.2) mg/dL Phosphorus 12.3 H* (2.5-4.5) mg/dL Magnesium 2.9 H (1.6-2.3) mg/dL AST 396 H (17-59) U/L Alkaline Phosphatase 232 H (38-126) U/L Total Protein 5.0 L (6.3-8.2) g/dL Albumin 2.3 L (3.5-5.0) g/dL 10/01/20 10/01/20 Range/Units 04:15 05:14 WBC (3.8-10.6) k/uL RBC (4.30-5.90) m/uL Hgb (13.0-17.5) gm/dL Hct (39.0-53.0) % Plt Count (150-450) k/uL APTT 40.1 H (22.0-30.0) sec ABG pH 7.34 L (7.35-7.45) ABG pO2 80 L (83-108) mmHg ABG O2 Saturation 93.9 L (94-97) % Sodium (137-145) mmol/L Potassium (3.5-5.1) mmol/L BUN (9-20) mg/dL Creatinine (0.66-1.25) mg/dL Calcium (8.4-10.2) mg/dL Phosphorus (2.5-4.5) mg/dL Magnesium (1.6-2.3) mg/dL AST (17-59) U/L Alkaline Phosphatase (38-126) U/L Total Protein (6.3-8.2) g/dL Albumin (3.5-5.0) g/dL Assessment and Plan Assessment: Patient is a 59-year-old male with a history of hypertension, hypothyroidism, and obesity who presented to the ER after cardiac arrest in the field. He had multiple rounds of CPR, Epi, and Defib prior to obtaining ROSC. It appears that his down time in the field was approximately 30 minutes on review of the EMS run sheet. He was intubated and sedated he underwent a left heart cath with stent to the LAD and impella placement. Echocardiogram demonstrated an EF of less than 20% with global hypokenesis. He was determined to be in cardiogenic shock requiring dopamine, dobutamine, and levophed. He has required a Nimbex drip to maintain adequate ventilation until 09/20/20. He demonstrated shock liver on arrival. He has also had progressive anuric renal failure, nephrology was consulted HD was initiated on 09/21/20. He had one abnormal EEG with worsening of EEG on 09/20/20. We have been unable to wean sedation due to agitation and there are concerns for severe anoxic encephalopathy. His CXR was worsening and procalcitonin was elevated and he was started on zosyn with concerns for possible underlying PNA. He had not been awake or following commands with sedation holidays. Below is the list list of his medical problems addressed during this hospitalization V. fib arrest due to ST segment elevated myocardial infarction status post PCI to the circumflex and impella placement Acute systolic congestive heart failure Ischemic cardiomyopathy with ejection fraction less than 20% Cardiogenic shock Cold and mottled right foot - dopamine off 09/23/20, dobutamine, levophed off by 09/22/20 - cardio following closely - ASA, Plavix, lipitor, and amiodarone -Attempt to place trach and PEG 09/29 aborted secondary to hypoxia and worsening respiratory status on the vent -Plan to reattempt trach and PEG today Paroxysmal atrial fibrillation: Cardiology following closely Hypoxic/Anoxic encephalopathy, improved. Patient is awake and following simple commands when off sedation - neuro recs - continue with sedation holidays - CT head with no acute findings Acute kidney injury secondary to hypoperfusion and likely ATN requiring hemodialysis Hyperphosphatemia Hyperkalemia - nephrology following closely -PhosLo 4 times a day, dose has been increased over this admission with minimal improvement in his phosphorus level - Avoid nephrotoxic agents Acute hypoxic respiratory failure Pneumonia possible gram negative, completed treatment - Finished a course of IV Zosyn - pulm recs following closely Anemia - Thrombocytopenia - follow CBC - no indication for transfusion at this point in time. Generalized Dermatitis, improved with IV steroids Morbid obesity with BMI 37.7 Shock liver, resolved Poor overall prognosis. DVT prophylaxis: heparin Discussed with: nursing A total of 35 minutes was spent on the care of this complex patient more than 50% of the time was spent in counseling and care coordination.
[2020-10-01] MEDS: SODIUM CHLORIDE 0.9% 500 ML IV SCH (09:21)
--- NOTE | 2020-10-01 10:31 | P.PN ---
Subjective Progress Note Date: 10/01/20 10/01/2020: Patient was seen for a follow-up. Patient is now opening his eyes, but continues to be severely encephalopathic. Please refer to examination below. Patient is currently on fentanyl 2 g, and Precedex 0.7 mcg/kg infusion. No seizure-like activity has been reported. 09/21/2020: Patient's was also present. Patient is currently on propofol 60 g. Patient underwent complete sedation holiday for 10 minutes. Patient is moving all 4 extremities randomly, but did not follow commands. His eyes were open, and the gaze was straight ahead, but no tracking or making eye contact. He would shake head [id number] randomly. Patient at present is on Levothroid 0.2, dopamine 2.5, dobutamine 3.5. Patient also has developed arrhythmia with atrial fibrillation, PVCs for which he is on amiodarone. Patient on subcu heparin. 09/20/2020: Patient was seen for a follow-up. Patient's father, patient's and his [id number] were present. Nurse was also present. Patient currently on propofol 64 g. He is off fentanyl and Nimbex. According to nurse report, when she performed sedation holiday, patient was moving all 4 extremities randomly, trying to sit up, opened his eyes, but gaze was upwards. He did not follow any directions. He did not make any eye contact or tract with his vision. Patient is still on dobutamine 3.5 g, dopamine 2.5 mcg. 09/19/2020: Patient was seen for a follow-up. Patient's family was also present today. Nurse was also present. Patient continues to be extremely critically sick. Still not able to be able to obtain CAT scan. Patient currently on multiple pressors including dobutamine 3.5 mcg/kg, dopamine 2.5 mcg/kg, Levophed 40 mcg/m. Patient is also on Nimbex 0.5 mcg/kg, propofol 60 mcg/kg and fentanyl 2 mg/kg. Impella has been removed earlier today. 09/18/2020: Patient was seen for a follow-up. Please refer to Dr. Fadi Johnson note for details. Patient came to the hospital with cardiac arrest. Exact downtime unclear, although some report states 20 minutes. Patient had acute UT, for which he underwent cardiac stenting. At present patient is on sedation with propofol 70 g, which is a high dose. He has a cardiac device, which prevents him from getting computed tomography scan. Per nursing report, when sedation is decreased, he does move all 4 extremities randomly, although not purposefully. He did open his eyes. At present patient is sedated. Objective - Vital Signs Vital signs: Vital Signs Temp 99.3 F 10/01/20 04:00 Pulse 89 10/01/20 07:19 Resp 17 10/01/20 07:00 BP 149/89 10/01/20 05:00 Pulse Ox 95 10/01/20 07:00 Intake & Output 09/30/20 10/01/20 10/01/20 18:59 06:59 18:59 Intake Total 607.527 8441.349 33.113 Output Total 15 10 0 Balance 247.647 7489.349 33.113 Weight 157.1 kg Intake: IV 202 276 16 0.9 Normal Saline 72 66 6 Pressure Bag Sodium Chloride 0.9% 1, 130 110 10 000 ml @ 10 mls/hr IV . Q24H [facility] Rx#:[id number] Zosyn 100 Intake, IV Titration 506.929 865.349 17.113 Amount Dexmedetomidine/0.9% NaCl 100 (Pmx) 400 mcg In Empty Bag 1 bag @ Titrate IV . Q0M [facility] Rx#:[id number] Dexmedetomidine/0.9% NaCl 100 199.068 (Pmx) 400 mcg In Empty Bag 1 bag @ Titrate IV . Q0M [facility] Rx#:[id number] Heparin Sod,Pork in 0.45% 123.21 250 17.113 NaCl 25,000 unit In 0.45 % NaCl 1 250ml.bag @ 8.13 UNITS/KG/HR 10 mls/hr IV .Q24H [facility] Rx#:[id number] Piperacillin-Tazobactam 3 100 .375 gm In Sodium Chloride 0.9% 100 ml @ 25 mls/hr IVPB Q12HR [facility] Rx #:[id number] fentaNYL (PF) 2,500 mcg 83.719 416.281 In Sodium Chloride 0.9% 200 ml @ Per Protocol IV .Q0M [facility] Rx#:[id number] Tube Feeding 56 70 0 Other 60 Output: Urine 15 10 0 Other: Voiding Method Indwelling Catheter Indwelling Catheter ABP, PAP, CO, CI - Last Documented Arterial Blood Pressure 129/81 - Exam On examination patient is sedated with Precedex 0.7 mcg/kg and fentanyl 2 mcg. Patient's eyes are open, blinking, but does not make any eye contact, or tracks with his eyes. Patient has bilateral pupils are round and reacting. Corneals are present. Oculocephalics are absent. Patient does not respond to any painful stimuli. Patient is breathing over the ventilator. He does have a gag and cough. Tone is equal bilaterally. Reflexes are 1+ in the upper and lower limbs and plantars are clearly upgoing bilaterally. Patient has developed wayne re weight gain of 30 pounds. Abdomen is tense, distended from fluid overload. He is having regular BMs per nurse. Positive peripheral edema. - Labs CBC & Chem 7: 10/01/20 04:15 10/01/20 04:15 Labs: Abnormal Lab Results - Last 24 Hours (Table) 09/30/20 10/01/20 10/01/20 Range/Units 14:08 04:15 04:15 WBC 12.8 H (3.8-10.6) k/uL RBC 2.34 L (4.30-5.90) m/uL Hgb 7.8 L (13.0-17.5) gm/dL Hct 22.2 L (39.0-53.0) % Plt Count 484 H (150-450) k/uL APTT (22.0-30.0) sec ABG pH (7.35-7.45) ABG pO2 (83-108) mmHg ABG O2 Saturation (94-97) % Sodium 136 L 135 L (137-145) mmol/L Potassium 5.3 H 6.2 H* (3.5-5.1) mmol/L BUN 97 H 111 H* (9-20) mg/dL Creatinine 6.51 H 7.46 H* (0.66-1.25) mg/dL Calcium 6.9 L 7.2 L (8.4-10.2) mg/dL Phosphorus 12.3 H* (2.5-4.5) mg/dL Magnesium 2.9 H (1.6-2.3) mg/dL AST 396 H (17-59) U/L Alkaline Phosphatase 232 H (38-126) U/L Total Protein 5.0 L (6.3-8.2) g/dL Albumin 2.3 L (3.5-5.0) g/dL 10/01/20 10/01/20 Range/Units 04:15 05:14 WBC (3.8-10.6) k/uL RBC (4.30-5.90) m/uL Hgb (13.0-17.5) gm/dL Hct (39.0-53.0) % Plt Count (150-450) k/uL APTT 40.1 H (22.0-30.0) sec ABG pH 7.34 L (7.35-7.45) ABG pO2 80 L (83-108) mmHg ABG O2 Saturation 93.9 L (94-97) % Sodium (137-145) mmol/L Potassium (3.5-5.1) mmol/L BUN (9-20) mg/dL Creatinine (0.66-1.25) mg/dL Calcium (8.4-10.2) mg/dL Phosphorus (2.5-4.5) mg/dL Magnesium (1.6-2.3) mg/dL AST (17-59) U/L Alkaline Phosphatase (38-126) U/L Total Protein (6.3-8.2) g/dL Albumin (3.5-5.0) g/dL Assessment and Plan Assessment: * Status post out of hospital cardiac arrest with prolonged downtime, at least 20 minutes or slightly longer. Patient continues to have significant encephalopathy, probably anoxic encephalopathy with some component of toxic metabolic encephalopathy from acute renal failure and medication effect. * Patient undergoing trach and PEG placement today. * STEMI s/p PCI to circumflex and status post removal of impella placement * Acute kidney injury, worsening with BUN 111 and creatinine 7.46. * Severe electrolyte imbalance with potassium 6.2, phosphorus 12.3/4.5, low calcium. * Anemia, hemoglobin 7.8 * Elevated liver function test, AST 396, normal ALT. * Congestive heart failure * Paroxysmal atrial fibrillation, not on anticoagulants. * Cardiomegaly Plan: * Patient continues to be severely encephalopathic. Patient is showing signs of anoxic encephalopathy. Patient is awake, with eyes open, however not responding to any painful stimuli, although he is sedated on fentanyl and Precedex. * Patient is undergoing tracheostomy and PEG placement today. * EEG 09/20/2020, which was abnormal due to background slowing of moderate to severe degree. This is slightly more asymmetric involving the right hemisphere as compared to the left. This is suggestive of generalized cerebral dysfunction as can be seen with anoxic or toxic metabolic encephalopathy or from underlying structural abnormality. No epileptiform activity was seen. When compared to the EEG from 09/17/2020, the background appears to have got worse. * CT of the head 09/26/2020 showed no acute process. Evidence of small hypo density in the left centrum semiovale in the posterior frontal region. This was also present on computed tomography scan from 09/22/2020. * Ammonia level 10. * 2-D echo revealed presence of Impella device. Left ventricle severely dilated. Severe global hypokinesis of the left ventricle, EF is <20%. Cardiology is on board. * Will defer the rest of the medical management to the IM and other specialties.
--- NOTE | 2020-10-01 11:04 | P.PN ---
Subjective This is a 59-year-old male with a past medical history significant for hypertension, hypothyroidism. 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 Patient admitted on 09/17/2020, apparently had a cardiac arrest at home. provided CPR. When EMS arrived the patient was found to be in V. fib. Patient received defibrillation 3 and epi 2. Downtime is unclear. Patient was found to have ST elevation on his EKG and was taken to the coreroom foundry laborer upon arrival to the hospital with Dr. Antoine Patient underwent PCI to the circumflex with impella placement. Echocardiogram revealed LF systolic function is severely impaired with an EF <20%, severe global hypokinesis. Patient's course also complicated by new onset atrial fibrillation and acute renal failure. Patient was started on Amiodarone drip on 09/21/20, now transitioned to PO amiodarone. 09/26- CT Brain negative for acute intracranial process. 09/27- LE dopplers completed awaiting read. 09/29- patient was scheduled for Trach and PEG tube placement, however, the patient became hypoxic and developed desaturations, procedure was canceled. Apparently patient did follow some simple commands 09/30 morning. 10/01/2020: Patient examined this morning at the bedside in the intensive care unit. Patient remains intubated on mechanical ventilation. Telemetry reviewed, patient continues to be in atrial fibrillation with controlled rates, wide QRS. Not following commands at this time. He is currently being maintained on amiodarone 400 mg twice a day, aspirin 81 mg daily, Plavix and 5 mg daily, IV heparin, Fentanyl drip, Precedex drip. Levophed is on hold. He underwent dialysis with 2.3L removed. Laboratory reviewed, WBC 12.8, hemoglobin 7.8, platelets 43, sodium 135, potassium 6.2, BUN 111, serum creatinine 7.4, magnesium 2.9. -Possible Trach and PEG tube placement today PHYSICAL EXAM: VITAL SIGNS: Blood pressure 114/71, heart rate 88, afebrile GENERAL: In no acute distress-sedated on mechanical ventilation NECK: Supple. No JVD or thyromegaly LUNGS: Respirations even and unlabored. Lungs diminished with scattered rhonchi HEART: Irregular rate and rhythm. S1 and S2 heard. EXTREMITIES: No clubbing or cyanosis. ASSESSMENT: STEMI, s/p PCI to circumflex and impella placement V-fib arrest Hypertension Dyslipidemia Ischemic cardiomyopathy Cardiogenic Shock Acute Hypoxic Respiratory Failure requiring intubation on a mechanical ventilator Acute Renal Failure- requiring hemodialysis - Nephrology following Paroxysmal atrial fibrillation Anemia PLAN: - We will continue current medical therapy with dual antiplatelet therapy aspirin and Plavix, amiodarone 400mg BID (Drip started 09/21, PO started 09/29/20). -Statin has been on hold due to elevated LFTs -Further recommendations based on clinical course Nurse practitioner note has been reviewed by physician. Signing provider agrees with the documented findings, assessment, and plan of care. Objective - Vital Signs Vital signs: Vital Signs Temp 98 F 10/01/20 08:40 Pulse 88 10/01/20 10:00 Resp 26 H 10/01/20 10:00 BP 149/89 10/01/20 10:00 Pulse Ox 94 L 10/01/20 10:00 Intake & Output 09/30/20 10/01/20 10/01/20 18:59 06:59 18:59 Intake Total 058.990 3632.349 606.113 Output Total 15 10 2300 Balance 222.484 3155.349 -1693.887 Weight 157.1 kg Intake: IV 202 276 144 0.9 Normal Saline 72 66 24 Pressure Bag Sodium Chloride 0.9% 1, 130 110 20 000 ml @ 10 mls/hr IV . Q24H [facility] Rx#:[id number] Zosyn 100 100 Intake, IV Titration 506.929 865.349 117.113 Amount Dexmedetomidine/0.9% NaCl 100 (Pmx) 400 mcg In Empty Bag 1 bag @ Titrate IV . Q0M [facility] Rx#:[id number] Dexmedetomidine/0.9% NaCl 100 199.068 100 (Pmx) 400 mcg In Empty Bag 1 bag @ Titrate IV . Q0M [facility] Rx#:[id number] Heparin Sod,Pork in 0.45% 123.21 250 17.113 NaCl 25,000 unit In 0.45 % NaCl 1 250ml.bag @ 8.13 UNITS/KG/HR 10 mls/hr IV .Q24H [facility] Rx#:[id number] Piperacillin-Tazobactam 3 100 .375 gm In Sodium Chloride 0.9% 100 ml @ 25 mls/hr IVPB Q12HR [facility] Rx #:[id number] fentaNYL (PF) 2,500 mcg 83.719 416.281 In Sodium Chloride 0.9% 200 ml @ Per Protocol IV .Q0M [facility] Rx#:[id number] Tube Feeding 56 70 0 Hemodialysis 300 Other 60 45 Output: Urine 15 10 0 Hemodialysis 2300 Other: Voiding Method Indwelling Catheter Indwelling Catheter Indwelling Catheter ABP, PAP, CO, CI - Last Documented Arterial Blood Pressure 114/71 - Labs CBC & Chem 7: 10/01/20 04:15 10/01/20 04:15 Labs: Abnormal Lab Results - Last 24 Hours (Table) 09/30/20 10/01/20 10/01/20 Range/Units 14:08 04:15 04:15 WBC 12.8 H (3.8-10.6) k/uL RBC 2.34 L (4.30-5.90) m/uL Hgb 7.8 L (13.0-17.5) gm/dL Hct 22.2 L (39.0-53.0) % Plt Count 484 H (150-450) k/uL APTT (22.0-30.0) sec ABG pH (7.35-7.45) ABG pO2 (83-108) mmHg ABG O2 Saturation (94-97) % Sodium 136 L 135 L (137-145) mmol/L Potassium 5.3 H 6.2 H* (3.5-5.1) mmol/L BUN 97 H 111 H* (9-20) mg/dL Creatinine 6.51 H 7.46 H* (0.66-1.25) mg/dL Calcium 6.9 L 7.2 L (8.4-10.2) mg/dL Phosphorus 12.3 H* (2.5-4.5) mg/dL Magnesium 2.9 H (1.6-2.3) mg/dL AST 396 H (17-59) U/L Alkaline Phosphatase 232 H (38-126) U/L Total Protein 5.0 L (6.3-8.2) g/dL Albumin 2.3 L (3.5-5.0) g/dL 10/01/20 10/01/20 Range/Units 04:15 05:14 WBC (3.8-10.6) k/uL RBC (4.30-5.90) m/uL Hgb (13.0-17.5) gm/dL Hct (39.0-53.0) % Plt Count (150-450) k/uL APTT 40.1 H (22.0-30.0) sec ABG pH 7.34 L (7.35-7.45) ABG pO2 80 L (83-108) mmHg ABG O2 Saturation 93.9 L (94-97) % Sodium (137-145) mmol/L Potassium (3.5-5.1) mmol/L BUN (9-20) mg/dL Creatinine (0.66-1.25) mg/dL Calcium (8.4-10.2) mg/dL Phosphorus (2.5-4.5) mg/dL Magnesium (1.6-2.3) mg/dL AST (17-59) U/L Alkaline Phosphatase (38-126) U/L Total Protein (6.3-8.2) g/dL Albumin (3.5-5.0) g/dL
[2020-10-01 11:38] LABS: Glucose,Whole Blood 87 mg/dL (75-99)
--- NOTE | 2020-10-01 13:13 | P.PN ---
Subjective Progress Note Date: 10/01/20 Principal diagnosis: Cardiac arrest and acute hypoxic respiratory failure secondary to cardiac arrest. 59-year-old male patient, post cardiac arrest, V. fib arrest, who is admitted intensive care unit since 09/17/2020 and the patient is being seen in follow-up today on 09/25/2020. The patient is still intubated on a mechanical ventilator. The patient was a V. fib arrest, received CPR on the scene, defibrillated, received epinephrine and was brought into us in his been in the intensive care unit setting. He turned out to be a case of a ST segment elevation myocardial infarction. He received immediate cardiac catheterization and stenting of the circumflex artery. The patient this morning is sedated with propofol running at 60 mcg/kg per minute. Is also on fentanyl 1 mcg/mg/h. He is off pressors. His cardiac rhythm is sinus with a left bundle branch block pattern. Over the past 24 hours, the patient was given dobutamine to augment his cardiac output. He went into atrial fibrillation with RVR. He was given a bolus of amiodarone and he is currently back into normal sinus rhythm. In terms of his vent support, the patient remains on mechanical ventilator. At this point in time, the patient is an assist-control mode at the rate of 28 and a tidal volume of 500 and FiO2 of 50% with a PEEP of 10. The blood gases from today showing a pH of 7.31 with a pCO2 of 35 and pO2 of 122. He is in renal failure. He is receiving dialysis periodically. He received dialysis on 09/20/2020 and 09/21/2020. Dialysis was attempted yesterday, unable to complete as the patient's catheter was kinked and Changes will be done today surgery. He will probably end up hav ing another session of hemodialysis today. When the process of getting the patient sedation holiday in his neurologic function will be reevaluated. CAT scan of the brain another EEG is in progress for today. He is on Levemir insulin for blood sugar control. He is on vital high protein at the rate of 27 mL an hour. No abdominal distention. No nausea or vomiting. No fever or chills. Chest x-ray is showing cardiomegaly with small bilateral pleural effusions on some atelectatic changes in lung bases bilaterally. Orogastric tube is in a good location. He does have small pleural effusions. There is stable cardiomegaly. In terms of his blood work, the white cell count is at 9.2 with a hemoglobin of 9.6. Sodium is at 129, potassium at 5.3, serum bicarbonate is 14 with a BUN of 78 and a creatinine of 9.67. On today's evaluation of 09/26/2020, the patient is being given another sedation holiday. The process yesterday got interrupted as the patient became basically a mechanical ventilator and the patient went into atrial fibrillation with rapid ventricular response. At that point, the patient was placed back on sedation with accommodation propofol and fentanyl and he was kept on the sedation throughout the day. This morning, the plan is to get him off the sedation again and utilizing Precedex if needed. A repeat CAT scan of the brain was ordered for today and the CAT scan showed age-related atrophy and chronic small vessel ischemic changes without any acute intracranial process. No evidence of any acute bleeding. On today's evaluation, the patient is grimacing to deep painful stimulation that was applied to his fingers and toes. For now, the patient is calm and comfortable. He is synchronous with the mechanical ventilator. He is on assist control mode of ventilation, at the rate of 28 and a tidal volume of 500 and FiO2 of 40% with a PEEP of 5. The blood gases from today showed a pH of 7.29 with a pCO2 of 41 and pO2 of 75. This was on FiO2 of 40%. The patient's chest x-ray showed stable findings along with some pulmonary a congestion and scattered infiltrates and interstitial edema. The orotracheal tube was in a good location. NG tube was also in a good location. The patient is currently in normal sinus rhythm. He is on amiodarone drip at 1 mg per minute and based on cardiology recommendation, we'll continue the amiodarone drip at a mainten ance of 1 mg per minute. A minimal amount of urine output. The patient remains in acute kidney injury. Creatinine is up to 7.98. Underwent hemodialysis yesterday. A another session of hemodialysis will be given to him today. He is afebrile. He is receiving enteral feeding for nutritional support. He continues to be on a combination of aspirin and Plavix. He is on no pressors for now. Had a discussion with the . Updated her on his condition. There is a concern of ongoing hypoxic encephalopathy. Meanwhile, the patient remains on Levemir insulin for blood sugar control in addition a slight scale insulin coverage. The patient is receiving vital high protein which is currently at goal. Current cardiac rhythm is sinus with a bundle-branch block pattern. 09/27/2020, I'm seeing the patient for a follow-up. Note that the patient is a case of a cardiac arrest with a STEMI requiring emergent cardiac catheterization and stenting of the circumflex. During the course of his treatment, the patient required insertion and removal of an impeller device. In any rate, there was a concern of the patient was having anoxic encephalopathy. Yesterday, I took him off the fentanyl and the propofol and I switched him to Precedex. As the weaning was being done, the patient was given a sedation holiday and he got to the point where he was awake and following some simple commands. He would open up his eyes. He would move his toes and fingers upon demand. This was also confirmed by neurology. As such, we believe that there is adequate neurologic functions. Nevertheless, as the patient was taken off the sedation, he required more sedation he was placed on Precedex and ultimately were unable to control his restlessness and the patient was having increased tachypnea tachycardia and episodes of atrial fibrillation with rapid ventricular response. He was also desaturating as the patient was becoming asynchronous with a mechanical ventilator. I had to put him back on propofol is currently running at 45 mcg/kg per minute. He stayed on propofol throughout the night. Meanwhile, he remains on assist control mode at a rate of 22 with a tidal volume of 500 and FiO2 of 70% with a PEEP of 10. The blood gases from today showing a pH of 7.35 with a pCO2 of 40 and pO2 of 129. The chest x-ray showing development of a right lower lobe pulmonary infiltrate. ET tube is in a good location. There is a suspicion of a right lower lobe pneumonia. White cell count is up to 15.2. Mild dynamically, he is on no pressors. He is back in normal sinus rhythm. He remains on amiodarone 1 mg per minute per yardage tufting machine operator recommendation. He does have a bundle-branch block pattern. A repeat echocardiogram was done today and his EF is still poor, less than 20%. He remains in renal failure. He is requiring daily hemodialysis. Underwent hemodialysis yesterday with ultrafilt ration of 500 mL. He continues to have extensive swelling in the upper and lower extremity and in his scrotum. On today's evaluation, he is also noted to have diminished pulses in lower extremities bilaterally. Doppler significant drop in the right foot. Right foot is cold and an same time there is some skin mottling and cyanosis in his toes mainly on the right. As mentioned, the right foot is cold yet Doppler signals are present. His previously inserted and patella was in the right femoral artery. There is also some rash developing over his upper thighs and abdomen and trunk and shoulders and upper extremities. He is receiving enteral feeding for nutritional support and is currently on vital high protein running at 23 mL an hour. Urine output is 5 mL an hour. 09/28/2020, the patient is being seen for a follow-up. He has been kept on propofol 45 mg/kg/m. We were unable to control his condition off sedation. He went on Precedex and he was still quite restless and agitated and at that point he was switched again to propofol. This morning is much more comfortable. Nevertheless, blood was noted to be lipemic. We're going to check her triglyceride levels and switch this patient back to Precedex. Note that while on Precedex, the patient was able to follow some simple commands. The ultimate plan is to proceed with a pack and a tracheostomy tube insertion and this is scheduled to be done tomorrow. Meanwhile, the patient underwent hemodialysis today. A total of 1.5 L of ultrafiltration was performed. His cardiac rhythm remains atrial fibrillation and amiodarone is running at 1 mg per minute. He remains on a mechanical ventilator on assist control mode with a rate of 22 and tidal volume of 550 FiO2 of 60% with a PEEP of 10. Blood gas showed a pH of 7.37 with a pCO2 of 34 and pO2 of 100. The patient is also receiving enteral feeding for nutritional support with Nepro 20 mL an hour. Urine output is minimal. The patient had some ischemic changes in the lower extremity especially on the right. On today's evaluation, the right foot is warmer compared to yesterday and there are Doppler signals bilaterally. Arterial Dopplers abdominal pain and the results of the pending in the patient is being seen by vascular surgery. He is on no pressors for now. On today's chest x- ray, there is the blood of the right lung consolidation. The patient was prod ucing purulent mucus yesterday. Sputum cultures have been sent. The patient was started on IV Zosyn. Rest or secretions improved since yesterday. White cell count currently is at 14.8 with hemoglobin of 9.4. 09/29/2020, the patient was taken to the operating room for a PEG and trach and the patient was brought back without having the procedure done. Note that the patient was quite stable earlier this morning. He was on Precedex which was running at 0.6 mcg/kg/h. He was able to respond and follows some simple commands. By the time he arrived to the operating room, the patient was placed on the operating room table and he became hypoxic and he developed oxygen desaturation was also stop in the mid 80s. At that point, the procedure was canceled as the patient was transferred back into the intensive care unit. I have an ICU. Currently is on Precedex at 0.7 mcg/kg/h. He was also given Dilaudid 1 mg IV. He is resting comfortably on a mechanical ventilator for now. He is on assist control mode at a rate of 20 with a tidal volume of 600 and FiO2 of 17 with a PEEP of 8. His current pulse ox is 93%. Chest x-ray from today is showing cardiomegaly. There is pulmonary vascular congestion. There is also consolidation of the right lung which we suspected this was related to a n underlying pneumonia. There is also bibasilar infiltrates. No pneumothorax. No pleural effusion. ET tube was in a good location. His sputum productions with orotracheal tube has subsided and the cultures that were collected earlier has not resulted in to have positive growth. The patient remains on IV Zosyn as an empiric antibiotic coverage. He is afebrile for now. As mentioned earlier, he is able to communicate once sedation is off and wheezing. Neurologically the patient is intact. In terms of hemodynamics, current rhythm is sinus. He has a bundle-branch block pattern, left-sided and the patient remains on amiodarone 1 mg per minute. His anticoagulation with IV heparin was held as the patient was being considered for a PEG and trach today. I may restart anticoagulation as long as we have a PTT breathing on this patient. Note that his triglyceride levels was up to 987. He was taken off the propofol. He is supposed to undergo dialysis today. He is able to undergo dialysis without any major issues. His BUN is at 87 with a creatinine of 7.2. His sodium level is at 131 with a potassium level of 5.5. Hemoglobin today is at 8.8 with a white cell count of 13.0. The enteral feeding has been held this morning in preparation for PEG and trach. I'm going to start him back on feeding today which is in the form of Nepro at the rate of 23 mL an hour. 2020, the patient is being seen for a follow-up. The plan is to proceed with a PEG tube a tracheostomy tube insertion tomorrow. The procedure yesterday got complicated as the patient desaturated and operate. This morning, he is on a combination of Precedex and fentanyl drip for sedation. Precedex is running at 0.7 mcg/kg/h and fentanyl is running at 2 mcg/kg/h. He still opens up his eyes. He is partially responsive to painful stimulation and tactile stimulation. Meanwhile, he remains on a mechanical ventilator. He remains on assist control mode at the rate of 20 with a tidal volume of 600 and FiO2 of 50% with a PEEP of 8. Blood gases from this morning show a pH of 7.39 with a pCO2 of 36 and pO2 of 88. No significant orotracheal secretions. Awaiting follow-up chest x-ray from today. Meanwhile, the sputum culture came back negative and the patient was covered empirically with IV Zosyn. He is currently off the amiodarone drip. Cardiac rhythm still in atrial fibrillation which is under better control. He remains also on IV heparin. Note that he goes back and forth between sinus rhythm and atrial fibrillation. His ejection fraction is less than 20%. He is tolerating his enteral feeding for nutritional support. He is afebrile. Potassium today's of 5.7 and this will be treated medically and the patient underwent his hemodialysis yesterday. No dialysis to follow first thing in the morning. BUN is at 84 with a creatinine of 6.4. In regards to his high potassium, he'll be given 10 units of regular insulin along with D50 in addition to 4 bicarb doses of 50 mEq. We'll monitor his potassium level. Patient was reevaluated today on 10/01/2020, remains in the ICU, intubated and mechanically ventilated. Patient is on volume control plus with volume of 600, FiO2 50%, inspiratory time of 0.9 seconds, PEEP at 8, rate is at 20. Vent changes were made today, increase rate to 26 decreased I'll volume to 550 and decreased inspiratory time to 0.80. Patient remains on fentanyl at 2 mcg/kg/h, he is on Precedex at 0.7 mcg/kg/m. He is also on heparin but presently off since the patient is going for tracheostomy and PEG tube placement. He is off norepinephrine. ABG this morning showed a pO2 of 88 pCO2 of 41 pH of 7.34. He is in atrial fibrillation with a rate of 106. Patient is on hemodialysis, received dialysis today and 2 L were off. Last hemodialysis was 09/28 and 1.8 L were taken off. He is empirically on Zosyn which may have to be discontinued, patient had over 11 days of Zosyn. And no clear-cut culture to treat. Chest x- ray showed indwelling tubes and catheters are in place. Scattered perihilar infiltrates and bibasilar infiltrates are the same. Pleural effusion is also unchanged. Potassium today is 5.7. WBC is 4.8 hemoglobin is 7.8. Blood sugar is 87. BUN is 111 creatinine 7.46. Liver enzymes are elevated with ALT of 26 AST of 396 alkaline phosphatase of 232. Objective - Vital Signs Vital signs: Vital Signs Temp 98 F 10/01/20 08:40 Pulse 94 10/01/20 11:25 Resp 26 H 10/01/20 11:00 BP 149/89 10/01/20 11:00 Pulse Ox 96 10/01/20 11:00 Intake & Output 09/30/20 10/01/20 10/01/20 18:59 06:59 18:59 Intake Total 801.111 7871.349 622.113 Output Total 15 10 2300 Balance 400.024 3192.349 -1677.887 Weight 157.1 kg 157.1 kg Intake: IV 202 276 160 0.9 Normal Saline 72 66 30 Pressure Bag Sodium Chloride 0.9% 1, 130 110 30 000 ml @ 10 mls/hr IV . Q24H [facility] Rx#:[id number] Zosyn 100 100 Intake, IV Titration 506.929 865.349 117.113 Amount Dexmedetomidine/0.9% NaCl 100 (Pmx) 400 mcg In Empty Bag 1 bag @ Titrate IV . Q0M [facility] Rx#:[id number] Dexmedetomidine/0.9% NaCl 100 199.068 100 (Pmx) 400 mcg In Empty Bag 1 bag @ Titrate IV . Q0M [facility] Rx#:[id number] Heparin Sod,Pork in 0.45% 123.21 250 17.113 NaCl 25,000 unit In 0.45 % NaCl 1 250ml.bag @ 8.13 UNITS/KG/HR 10 mls/hr IV .Q24H [facility] Rx#:[id number] Piperacillin-Tazobactam 3 100 .375 gm In Sodium Chloride 0.9% 100 ml @ 25 mls/hr IVPB Q12HR [facility] Rx #:[id number] fentaNYL (PF) 2,500 mcg 83.719 416.281 In Sodium Chloride 0.9% 200 ml @ Per Protocol IV .Q0M [facility] Rx#:[id number] Tube Feeding 56 70 0 Hemodialysis 300 Other 60 45 Output: Urine 15 10 0 Hemodialysis 2300 Other: Voiding Method Indwelling Catheter Indwelling Catheter Indwelling Catheter ABP, PAP, CO, CI - Last Documented Arterial Blood Pressure 104/57 - Exam Physical Exam: Revealed 59-year-old white male intubated and mechanically ventilated, unresponsive to any stimuli. Remains on Precedex and fentanyl. Head: Atraumatic, normocephalic. HEENT:[Neck is supple.] [No neck masses.] [No thyromegaly.] [No JVD.] The left, EOMI, nonicteric, moist mucous membranes. Chest: [Symmetrical chest expansion, crackles at the bases.] Cardiac Exam: Irregular irregular rhythm, 2/6 systolic murmur thought the precordium. Distant S1 and S2. Abdomen: [Obese, Soft, nontender, no megaly, no rebound, no guarding, negative bowel sounds. Extremities: [No clubbing, 2+ bipedal edema, no cyanosis.] Good pulses bilaterally. Dialysis catheter is in the left femoral vein. Neurological Exam: Opens eyes, otherwise does not respond to any stimuli. Skin: No rashes. Psychiatric: Could not assess, patient is encephalopathic. - Labs CBC & Chem 7: 10/01/20 04:15 10/01/20 11:11 Labs: Abnormal Lab Results - Last 24 Hours (Table) 09/30/20 10/01/20 10/01/20 Range/Units 14:08 04:15 04:15 WBC 12.8 H (3.8-10.6) k/uL RBC 2.34 L (4.30-5.90) m/uL Hgb 7.8 L (13.0-17.5) gm/dL Hct 22.2 L (39.0-53.0) % Plt Count 484 H (150-450) k/uL APTT (22.0-30.0) sec ABG pH (7.35-7.45) ABG pO2 (83-108) mmHg ABG O2 Saturation (94-97) % Sodium 136 L 135 L (137-145) mmol/L Potassium 5.3 H 6.2 H* (3.5-5.1) mmol/L BUN 97 H 111 H* (9-20) mg/dL Creatinine 6.51 H 7.46 H* (0.66-1.25) mg/dL Calcium 6.9 L 7.2 L (8.4-10.2) mg/dL Phosphorus 12.3 H* (2.5-4.5) mg/dL Magnesium 2.9 H (1.6-2.3) mg/dL AST 396 H (17-59) U/L Alkaline Phosphatase 232 H (38-126) U/L Total Protein 5.0 L (6.3-8.2) g/dL Albumin 2.3 L (3.5-5.0) g/dL 10/01/20 10/01/20 10/01/20 Range/Units 04:15 05:14 11:11 WBC (3.8-10.6) k/uL RBC (4.30-5.90) m/uL Hgb (13.0-17.5) gm/dL Hct (39.0-53.0) % Plt Count (150-450) k/uL APTT 40.1 H (22.0-30.0) sec ABG pH 7.34 L (7.35-7.45) ABG pO2 80 L (83-108) mmHg ABG O2 Saturation 93.9 L (94-97) % Sodium (137-145) mmol/L Potassium 5.7 H (3.5-5.1) mmol/L BUN (9-20) mg/dL Creatinine (0.66-1.25) mg/dL Calcium (8.4-10.2) mg/dL Phosphorus (2.5-4.5) mg/dL Magnesium (1.6-2.3) mg/dL AST (17-59) U/L Alkaline Phosphatase (38-126) U/L Total Protein (6.3-8.2) g/dL Albumin (3.5-5.0) g/dL Assessment and Plan Assessment: Impression: Acute hypoxic respiratory failure secondary to cardiac arrest. Patient presented with V. fib cardiac arrest. Status post cardiac catheterization and stenting of the circumflex Severe ischemic cardiomyopathy and LV dysfunction. Hypoxic encephalopathy. Suspect anoxic brain injury. Acute kidney injury secondary to acute tubular necrosis and cardiac arrest. Patient is requiring hemodialysis. Shocked liver. Paroxysmal atrial fibrillation. Hypothyroidism. History of depression. Fluid overload with extensive edema in lower and upper extremities as well as scrotal swelling noted. Related to renal failure and acute kidney injury, patient is improving with dialysis. Recommendation: Continue ventilatory support. Arrange for PEG and trach today. Hold IV heparin before the procedure. Continue enteral feeding/nutritional support. Continue hemodynamic support if needed. Continue hemodialysis. Continue GI and DVT prophylaxis. Vent settings were changed today based on his ABG and based on his response to mechanical ventilation. Rate was increased to 26 and tidal volume was cut down to 550. Patient remains critically ill. Prognosis remains extremely poor and guarded, and quality of life is expected to be very poor. We will continue to follow. Critical care time is over 30 minutes. Time with Patient: Greater than 30
[2020-10-01] MEDS ORDERED: DEXTROSE 50% SYRINGE 50 ML IVP STA (13:56)
[2020-10-01] MEDS ORDERED: INSULIN REGULAR 100 UNIT/ML VIAL (IV) IV ONE (14:00)
[2020-10-01] MEDS ORDERED: CISATRACURIUM 2 MG/ML 5 ML VIAL IV ONE (14:24)
[2020-10-01] MEDS ORDERED: PHENYLEPHRINE-0.9% NACL SYG 1,000 MCG/10 ML SYRINGE ONE (14:40)
[2020-10-01] MEDS ORDERED: ROCURONIUM 10 MG/ML (5 ML VIAL) IV ONE (14:40)
[2020-10-01] MEDS ORDERED: BUPIVACAINE (PF) 0.5% 30 ML VIAL SQ ONE (15:15)
--- NOTE | 2020-10-01 16:24 | P.OP ---
Date of Procedure: 10/01/20 Procedure(s) Performed: PREOPERATIVE DIAGNOSIS: Respiratory failure POSTOPERATIVE DIAGNOSIS: Same PROCEDURE: Tracheostomy, EGD with PEG tube placement SURGEON: Shlomo EBL: Minimal ANESTHESIA: General COMPLICATIONS: None OPERATIVE PROCEDURE: Patient was placed in the operative table in the supine position. A shoulder roll was utilized. The neck was prepped and draped in usual sterile fashion. The skin was infiltrated with local anesthesia. A small cervical incision was created using the scalpel. Dissection through the subcutaneous fat and platysma layer took place using electrocautery. The underlying strap muscles were divided in the midline. The thyroid isthmus was divided using electrocautery as well. No bleeding was seen. The trachea was easily identified at this time. The endotracheal tube was advanced and the balloon was reinflated. The patient was preoxygenated with 100% FiO2. The FiO2 was then brought down to room air. Once the end title oxygen level was less than 35 a vertical tracheostomy was created using the electrocautery. This went through the second and third tracheal ring. The patient was again preoxygenated with 100% FiO2. The heat treat supervisor was utilized. Carefully the endotracheal tube was withdrawn just proximal to our tracheostomy. The 8-Greenlandic extended length Shiley nonfenestrated tracheostomy catheter was advanced under direct visualization into the trachea. The and a cannula was inserted. This was then connected to the ventilator. Positive end tidal CO2 was confirmed. The tracheal ties were utilized. The trach was sutured to the skin superiorly using 2 separate 0 silk sutures. The skin was closed using 3-0 Vicryl sutures. A dressing was applied. The patient was maintained on the operating room table. The Olympus gastroscope was inserted into the oropharynx and passed under direct visualization to the region of the duodenum. No obstruction was seen. The pylorus was widely patent. The stomach was carefully inspected. The stomach was fully insufflated with air. The abdominal wall was inspected. The light was seen shining through the abdominal wall in the left upper quadrant. This site was chosen for PEG tube placement. The area was prepped in the usual sterile fashion. This area was then localized with lidocaine. No air was evident when aspirating while advancing the localizing needle into the stomach until the stomach was reached. A small vertical incision was made using the scalpel. The Seldinger needle was advanced into the lumen of the stomach the wire was advanced. The wire was grasped with an endoscopic snare. The wire was pulled through the oropharynx. The catheter was then threaded over the guidewire and the guidewire and catheter were pulled anteriorly until the hub of the PEG tube catheter was seated against the anterior wall the stomach. The circular bolster was applied and tightened down. The endoscope was then readvanced into the stomach. There was no evidence of any bleeding and there was appropriate tightness on the bolster. The catheter was cut appropriately. The dual port feeding adapter was applied. DISPOSITION: Stable to ICU
--- NOTE | 2020-10-01 16:44 | PN ---
PROGRESS NOTE Patient is seen for followup for acute kidney injury. He currently remains hemodialysis dependent. The patient is scheduled for trach and PEG today. He was dialyzed this morning. We had about 2.3 L of fluid taken off. He tolerated the procedure quite well. PHYSICAL EXAMINATION: On examination today, blood pressure was 104/57, heart rate about 97 per minute patient is afebrile. Examination of the heart S1, S2. Examination of the lungs, bilateral breath sounds are heard. Abdomen is soft, nontender. Examination of lower extremities shows no significant edema. EQUIPMENT DETAILER exam cannot be assessed. LAB: Show sodium 135, potassium 6.2, BUN 111, serum creatinine 7.46. Phosphorus was 12.3. ASSESSMENT: 1. Acute kidney injury, ATN, currently oliguric and hemodialysis dependent. The patient is being dialyzed daily. He did not get a treatment yesterday and his BUN and creatinine was significantly elevated. We will continue with daily treatments for now. 2. Status post acute myocardial infarction. 3. Acute hypoxic respiratory failure. 4. Atrial fibrillation, rate is controlled, maintained on oral amiodarone previously in with RVR. 5. Cardiogenic shock, status post dobutamine and dopamine. 6. Status post cardiac arrest. 7. Coronary artery disease status post cardiac catheterization with stent placement to circ on 09/17/2020. 8. Hyperphosphatemia associated with acute kidney injury, maintained on phosphate binders. 9. Hyperkalemia associated with advanced renal failure, currently being dialyzed on a daily basis. Patient did not get a treatment yesterday. We will dialyze him again tomorrow and adjust the potassium bath for dialysis. 10.Severe cardiomyopathy, ischemic, EF 20-25%. PLAN: Hemodialysis again in a.m. Treat the hyperkalemia with insulin and D50 as this was drawn post dialysis and we will adjust the potassium bath tomorrow with his treatment. MMODL / IJN: [id number] /
[2020-10-02] MEDS: IPRATROPIUM-ALBUTEROL 3 ML NEB INHALATION SCH ×7 (00:06→23:26)
[2020-10-02 00:08] LABS: Glucose,Whole Blood 91 mg/dL (75-99)
[2020-10-02] MEDS: fentaNYL (PF) 2,500 MCG in SODIUM CHLORIDE 0.9% 200 ML IV SCH ×2 (03:20→12:38)
[2020-10-02] MEDS: DEXMEDETOMIDINE/0.9% NACL(PMX) 400 MCG in EMPTY BAG 1 BAG IV SCH ×5 (03:21→21:49)
[2020-10-02 04:52] LABS: HCT 23.5 % (39.0-53.0); HGB 8.1 gm/dL (13.0-17.5); MCH 32.6 pg (25.0-35.0); MCHC 34.5 g/dL (31.0-37.0); MCV 94.5 fL (80.0-100.0); Mean Platelet Volume 8.3; Platelet Count 557 k/uL (150-450); RBC 2.49 m/uL (4.30-5.90); RDW 13.7 % (11.5-15.5); WBC 13.4 k/uL (3.8-10.6)
[2020-10-02 05:04] LABS: Calcium 7.1 mg/dL (8.4-10.2); Magnesium 2.7 mg/dL (1.6-2.3)
[2020-10-02 05:06] LABS: ABG HCO3 22 mmol/L (21-25); ABG Oxygen Saturation 96.6 % (94-97); ABG PCO2 38 mmHg (35-45); ABG PH 7.37 (7.35-7.45); ABG PO2 97 mmHg (83-108); ABG TCO2 23 mmol/L (19-24); Allen Test Performed? Yes
[2020-10-02 05:27] LABS: Potassium 6.3 mmol/L (3.5-5.1)
[2020-10-02] MEDS: LEVOTHYROXINE 50 MCG TAB PO SCH (07:07)
[2020-10-02 07:15] LABS: Glucose,Whole Blood 108 mg/dL (75-99)
--- NOTE | 2020-10-02 08:07 | XR ---
EXAMINATION TYPE: XR chest 1V portable DATE OF EXAM: 10/02/2020 CLINICAL HISTORY: Post Day 1 Trach and PEG placement. TECHNIQUE: Portable semiupright view of the chest. COMPARISON: 10/01/2020 FINDINGS: Tracheostomy tube overlies the tracheal air column. Redemonstrated right internal jugular hemodialysi s catheter, left internal jugular central venous catheter, left PICC. Interval removal of enteric tub e. Low lung volumes. Cardiomegaly. Diffuse perihilar and bibasilar hazy airspace opacities. Small left p leural effusion redemonstrated. No pneumothorax. IMPRESSION: 1. Tracheostomy tube overlies the tracheal air column. 2. Unchanged hazy airspace opacities and small left pleural effusion.
[2020-10-02] MEDS: PIPERACILLIN-TAZOBACTAM 3.375 GM in SODIUM CHLORIDE 0.9% 100 ML IVPB SCH ×2 (09:08→19:59)
[2020-10-02] MEDS: CALCIUM ACETATE 667 MG TAB PO SCH ×4 (09:08→21:45)
[2020-10-02] MEDS: CLOPIDOGREL 75 MG TAB PO SCH (09:08)
[2020-10-02] MEDS: AMIODARONE 200 MG TAB PO SCH ×2 (09:08→19:58)
[2020-10-02] MEDS: ASPIRIN 81 MG PO SCH (09:08)
[2020-10-02] MEDS: SODIUM BICARBONATE TAB 650 MG TAB PO SCH ×2 (09:08→19:58)
[2020-10-02] MEDS: CHLORHEXIDINE GLUCONATE 15 ML CUP MUCOUS MEM SCH ×2 (09:08→19:58)
[2020-10-02] MEDS: PANTOPRAZOLE 40 MG/10 ML VIAL IVP SCH (09:08)
[2020-10-02] MEDS: HEPARIN SOD,PORK IN 0.45% NACL 25,000 UNIT in 0.45% NACL 1 250ML.BAG IV SCH (09:09)
--- NOTE | 2020-10-02 11:32 | P.PN ---
Subjective This is a 59-year-old male with a past medical history significant for hypertension, hypothyroidism. 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 Patient admitted on 09/17/2020, apparently had a cardiac arrest at home. provided CPR. When EMS arrived the patient was found to be in V. fib. Patient received defibrillation 3 and epi 2. Downtime is unclear. Patient was found to have ST elevation on his EKG and was taken to the chemical laboratory technician upon arrival to the hospital with Dr. Antoine Patient underwent PCI to the circumflex with impella placement. Echocardiogram revealed LF systolic function is severely impaired with an EF <20%, severe global hypokinesis. Patient's course also complicated by new onset atrial fibrillation and acute renal failure started on dialysis. Patient was started on Amiodarone drip on 09/21/20, now transitioned to PO amiodarone. 09/26- CT Brain negative for acute intracranial process. 09/27- LE dopplers completed awaiting read. 09/29- patient was scheduled for Trach and PEG tube placement, however, the patient became hypoxic and developed desaturations, procedure was canceled and rescheduled 10/01. Apparently patient did follow some simple commands 09/22 in the morning with at bedside. 10/01/2020: In ICU. Patient underwent Trach and PEG tube placement. He underwent dialysis with 2.3L removed. He is currently being maintained on amiodarone 400 mg twice a day, aspirin 81 mg daily, Plavix and 5 mg daily, IV heparin, Fentanyl drip, Precedex drip. Levophed is on hold. 10/02/2020 Patient seen in the ICU. status post Trach and PEG tube placement. He remains intubated on mechanical ventilation. Telemetry reviewed, patient continues to be in atrial fibrillation with controlled rates, wide QRS. Not following commands at this time. He is currently being maintained on amiodarone 400 mg twice a day, aspirin 81 mg daily, Plavix and 5 mg daily, IV heparin, Fentanyl drip, Precedex drip. Levophed was restarted due to hypotension, but being weaned off. He is undergoing Dialysis this morning. Laboratory reviewed, WBC 13.4, creatinine 1, platelets 557, sodium 134, potassium 6.3, BUN 2, serum creatinine 6.7, magnesium 2.7 PHYSICAL EXAM: VITAL SIGNS: Blood pressure 114/66. HR 80s-115, afebrile GENERAL: In no acute distress-sedated on mechanical ventilation NECK: Supple. No JVD LUNGS: Respirations even and unlabored. Lungs diminished with bilateral crackles at bases. HEART: Irregular rate and rhythm. S1 and S2 heard. Systolic murmur noted EXTREMITIES: No clubbing or cyanosis. NEURO: Eyes open, unable to response to stimuli ASSESSMENT: STEMI, s/p PCI to circumflex and impella placement V-fib arrest Hypertension Dyslipidemia Ischemic cardiomyopathy EF <20% Cardiogenic Shock Acute Hypoxic Respiratory Failure requiring intubation on a mechanical ventilator Acute Renal Failure- requiring hemodialysis - Nephrology following Paroxysmal atrial fibrillation Anemia s/p PEG and Tracheostomy placement 10/01/20 PLAN: -We will continue current medical therapy with dual antiplatelet therapy aspirin and Plavix, amiodarone 400mg BID (Drip started 09/21, PO started 09/29/20). -Continue Heparin drip -Statin has been on hold due to elevated LFTs -Pulmonary following, appreciate recs -Nephrology following for dialysis, appreciate recs -Further recommendations based on clinical course Nurse practitioner note has been reviewed by physician. Signing provider agrees with the documented findings, assessment, and plan of care. Objective - Vital Signs Vital signs: Vital Signs Temp 98.6 F 10/01/20 20:00 Pulse 96 10/02/20 07:27 Resp 19 10/02/20 07:00 BP 106/55 10/02/20 07:00 Pulse Ox 94 L 10/02/20 07:00 Intake & Output 10/01/20 10/02/20 10/02/20 18:59 06:59 18:59 Intake Total 1071.364 715 10 Output Total 2305 20 10 Balance -1233.636 695 0 Weight 157.1 kg 157.8 kg Intake: IV 240 235 10 0.9 Normal Saline 60 15 Pressure Bag Sodium Chloride 0.9% 1, 80 120 10 000 ml @ 10 mls/hr IV . Q24H [facility] Rx#:[id number] Zosyn 100 100 Intake, IV Titration 486.364 450 Amount Dexmedetomidine/0.9% NaCl 100 (Pmx) 400 mcg In Empty Bag 1 bag @ Titrate IV . Q0M [facility] Rx#:[id number] Dexmedetomidine/0.9% NaCl 100.000 200 (Pmx) 400 mcg In Empty Bag 1 bag @ Titrate IV . Q0M [facility] Rx#:[id number] Heparin Sod,Pork in 0.45% 17.113 NaCl 25,000 unit In 0.45 % NaCl 1 250ml.bag @ 8.13 UNITS/KG/HR 10 mls/hr IV .Q24H [facility] Rx#:[id number] Norepinephrine 8 mg In 19.251 0 Sodium Chloride 0.9% 250 ml @ 0.05 MCG/KG/MIN 13. 816 mls/hr IV .[id number] [facility] Rx#:[id number] fentaNYL (PF) 2,500 mcg 250 250 In Sodium Chloride 0.9% 200 ml @ Per Protocol IV .Q0M [facility] Rx#:[id number] Tube Feeding 0 Hemodialysis 300 Other 45 30 Output: Urine 0 20 10 Hemodialysis 2300 Estimated Blood Loss 5 Other: Voiding Method Indwelling Catheter Indwelling Catheter ABP, PAP, CO, CI - Last Documented Arterial Blood Pressure 117/65 - Labs CBC & Chem 7: 10/02/20 04:30 10/02/20 04:30 Labs: Abnormal Lab Results - Last 24 Hours (Table) 10/01/20 10/01/20 10/02/20 Range/Units 04:15 11:11 04:30 WBC 13.4 H (3.8-10.6) k/uL RBC 2.49 L (4.30-5.90) m/uL Hgb 8.1 L (13.0-17.5) gm/dL Hct 23.5 L (39.0-53.0) % Plt Count 557 H (150-450) k/uL APTT (22.0-30.0) sec Sodium (137-145) mmol/L Potassium 5.7 H (3.5-5.1) mmol/L Chloride (98-107) mmol/L Carbon Dioxide (22-30) mmol/L BUN (9-20) mg/dL Creatinine 7.46 H* (0.66-1.25) mg/dL POC Glucose (mg/dL) (75-99) mg/dL Calcium (8.4-10.2) mg/dL Magnesium (1.6-2.3) mg/dL 10/02/20 10/02/20 10/02/20 Range/Units 04:30 04:30 07:13 WBC (3.8-10.6) k/uL RBC (4.30-5.90) m/uL Hgb (13.0-17.5) gm/dL Hct (39.0-53.0) % Plt Count (150-450) k/uL APTT 19.1 L (22.0-30.0) sec Sodium 134 L (137-145) mmol/L Potassium 6.3 H* (3.5-5.1) mmol/L Chloride 97 L (98-107) mmol/L Carbon Dioxide 21 L (22-30) mmol/L BUN 102 H* (9-20) mg/dL Creatinine 6.79 H (0.66-1.25) mg/dL POC Glucose (mg/dL) 108 H (75-99) mg/dL Calcium 7.1 L (8.4-10.2) mg/dL Magnesium 2.7 H (1.6-2.3) mg/dL
[2020-10-02] MEDS: SODIUM CHLORIDE 0.9% 500 ML IV SCH (11:35)
[2020-10-02 11:37] LABS: Glucose,Whole Blood 85 mg/dL (75-99)
--- NOTE | 2020-10-02 11:45 | P.PN ---
Subjective Progress Note Date: 10/02/20 Principal diagnosis: Cardiac arrest and acute hypoxic respiratory failure secondary to cardiac arrest. 59-year-old male patient, post cardiac arrest, V. fib arrest, who is admitted intensive care unit since 09/17/2020 and the patient is being seen in follow-up today on 09/25/2020. The patient is still intubated on a mechanical ventilator. The patient was a V. fib arrest, received CPR on the scene, defibrillated, received epinephrine and was brought into us in his been in the intensive care unit setting. He turned out to be a case of a ST segment elevation myocardial infarction. He received immediate cardiac catheterization and stenting of the circumflex artery. The patient this morning is sedated with propofol running at 60 mcg/kg per minute. Is also on fentanyl 1 mcg/mg/h. He is off pressors. His cardiac rhythm is sinus with a left bundle branch block pattern. Over the past 24 hours, the patient was given dobutamine to augment his cardiac output. He went into atrial fibrillation with RVR. He was given a bolus of amiodarone and he is currently back into normal sinus rhythm. In terms of his vent support, the patient remains on mechanical ventilator. At this point in time, the patient is an assist-control mode at the rate of 28 and a tidal volume of 500 and FiO2 of 50% with a PEEP of 10. The blood gases from today showing a pH of 7.31 with a pCO2 of 35 and pO2 of 122. He is in renal failure. He is receiving dialysis periodically. He received dialysis on 09/20/2020 and 09/21/2020. Dialysis was attempted yesterday, unable to complete as the patient's catheter was kinked and Changes will be done today surgery. He will probably end up hav ing another session of hemodialysis today. When the process of getting the patient sedation holiday in his neurologic function will be reevaluated. CAT scan of the brain another EEG is in progress for today. He is on Levemir insulin for blood sugar control. He is on vital high protein at the rate of 27 mL an hour. No abdominal distention. No nausea or vomiting. No fever or chills. Chest x-ray is showing cardiomegaly with small bilateral pleural effusions on some atelectatic changes in lung bases bilaterally. Orogastric tube is in a good location. He does have small pleural effusions. There is stable cardiomegaly. In terms of his blood work, the white cell count is at 9.2 with a hemoglobin of 9.6. Sodium is at 129, potassium at 5.3, serum bicarbonate is 14 with a BUN of 78 and a creatinine of 9.67. On today's evaluation of 09/26/2020, the patient is being given another sedation holiday. The process yesterday got interrupted as the patient became basically a mechanical ventilator and the patient went into atrial fibrillation with rapid ventricular response. At that point, the patient was placed back on sedation with accommodation propofol and fentanyl and he was kept on the sedation throughout the day. This morning, the plan is to get him off the sedation again and utilizing Precedex if needed. A repeat CAT scan of the brain was ordered for today and the CAT scan showed age-related atrophy and chronic small vessel ischemic changes without any acute intracranial process. No evidence of any acute bleeding. On today's evaluation, the patient is grimacing to deep painful stimulation that was applied to his fingers and toes. For now, the patient is calm and comfortable. He is synchronous with the mechanical ventilator. He is on assist control mode of ventilation, at the rate of 28 and a tidal volume of 500 and FiO2 of 40% with a PEEP of 5. The blood gases from today showed a pH of 7.29 with a pCO2 of 41 and pO2 of 75. This was on FiO2 of 40%. The patient's chest x-ray showed stable findings along with some pulmonary a congestion and scattered infiltrates and interstitial edema. The orotracheal tube was in a good location. NG tube was also in a good location. The patient is currently in normal sinus rhythm. He is on amiodarone drip at 1 mg per minute and based on cardiology recommendation, we'll continue the amiodarone drip at a mainten ance of 1 mg per minute. A minimal amount of urine output. The patient remains in acute kidney injury. Creatinine is up to 7.98. Underwent hemodialysis yesterday. A another session of hemodialysis will be given to him today. He is afebrile. He is receiving enteral feeding for nutritional support. He continues to be on a combination of aspirin and Plavix. He is on no pressors for now. Had a discussion with the . Updated her on his condition. There is a concern of ongoing hypoxic encephalopathy. Meanwhile, the patient remains on Levemir insulin for blood sugar control in addition a slight scale insulin coverage. The patient is receiving vital high protein which is currently at goal. Current cardiac rhythm is sinus with a bundle-branch block pattern. 09/27/2020, I'm seeing the patient for a follow-up. Note that the patient is a case of a cardiac arrest with a STEMI requiring emergent cardiac catheterization and stenting of the circumflex. During the course of his treatment, the patient required insertion and removal of an impeller device. In any rate, there was a concern of the patient was having anoxic encephalopathy. Yesterday, I took him off the fentanyl and the propofol and I switched him to Precedex. As the weaning was being done, the patient was given a sedation holiday and he got to the point where he was awake and following some simple commands. He would open up his eyes. He would move his toes and fingers upon demand. This was also confirmed by neurology. As such, we believe that there is adequate neurologic functions. Nevertheless, as the patient was taken off the sedation, he required more sedation he was placed on Precedex and ultimately were unable to control his restlessness and the patient was having increased tachypnea tachycardia and episodes of atrial fibrillation with rapid ventricular response. He was also desaturating as the patient was becoming asynchronous with a mechanical ventilator. I had to put him back on propofol is currently running at 45 mcg/kg per minute. He stayed on propofol throughout the night. Meanwhile, he remains on assist control mode at a rate of 22 with a tidal volume of 500 and FiO2 of 70% with a PEEP of 10. The blood gases from today showing a pH of 7.35 with a pCO2 of 40 and pO2 of 129. The chest x-ray showing development of a right lower lobe pulmonary infiltrate. ET tube is in a good location. There is a suspicion of a right lower lobe pneumonia. White cell count is up to 15.2. Mild dynamically, he is on no pressors. He is back in normal sinus rhythm. He remains on amiodarone 1 mg per minute per remediation consultant recommendation. He does have a bundle-branch block pattern. A repeat echocardiogram was done today and his EF is still poor, less than 20%. He remains in renal failure. He is requiring daily hemodialysis. Underwent hemodialysis yesterday with ultrafilt ration of 500 mL. He continues to have extensive swelling in the upper and lower extremity and in his scrotum. On today's evaluation, he is also noted to have diminished pulses in lower extremities bilaterally. Doppler significant drop in the right foot. Right foot is cold and an same time there is some skin mottling and cyanosis in his toes mainly on the right. As mentioned, the right foot is cold yet Doppler signals are present. His previously inserted and patella was in the right femoral artery. There is also some rash developing over his upper thighs and abdomen and trunk and shoulders and upper extremities. He is receiving enteral feeding for nutritional support and is currently on vital high protein running at 23 mL an hour. Urine output is 5 mL an hour. 09/28/2020, the patient is being seen for a follow-up. He has been kept on propofol 45 mg/kg/m. We were unable to control his condition off sedation. He went on Precedex and he was still quite restless and agitated and at that point he was switched again to propofol. This morning is much more comfortable. Nevertheless, blood was noted to be lipemic. We're going to check her triglyceride levels and switch this patient back to Precedex. Note that while on Precedex, the patient was able to follow some simple commands. The ultimate plan is to proceed with a pack and a tracheostomy tube insertion and this is scheduled to be done tomorrow. Meanwhile, the patient underwent hemodialysis today. A total of 1.5 L of ultrafiltration was performed. His cardiac rhythm remains atrial fibrillation and amiodarone is running at 1 mg per minute. He remains on a mechanical ventilator on assist control mode with a rate of 22 and tidal volume of 550 FiO2 of 60% with a PEEP of 10. Blood gas showed a pH of 7.37 with a pCO2 of 34 and pO2 of 100. The patient is also receiving enteral feeding for nutritional support with Nepro 20 mL an hour. Urine output is minimal. The patient had some ischemic changes in the lower extremity especially on the right. On today's evaluation, the right foot is warmer compared to yesterday and there are Doppler signals bilaterally. Arterial Dopplers abdominal pain and the results of the pending in the patient is being seen by vascular surgery. He is on no pressors for now. On today's chest x- ray, there is the blood of the right lung consolidation. The patient was prod ucing purulent mucus yesterday. Sputum cultures have been sent. The patient was started on IV Zosyn. Rest or secretions improved since yesterday. White cell count currently is at 14.8 with hemoglobin of 9.4. 09/29/2020, the patient was taken to the operating room for a PEG and trach and the patient was brought back without having the procedure done. Note that the patient was quite stable earlier this morning. He was on Precedex which was running at 0.6 mcg/kg/h. He was able to respond and follows some simple commands. By the time he arrived to the operating room, the patient was placed on the operating room table and he became hypoxic and he developed oxygen desaturation was also stop in the mid 80s. At that point, the procedure was canceled as the patient was transferred back into the intensive care unit. I have an ICU. Currently is on Precedex at 0.7 mcg/kg/h. He was also given Dilaudid 1 mg IV. He is resting comfortably on a mechanical ventilator for now. He is on assist control mode at a rate of 20 with a tidal volume of 600 and FiO2 of 17 with a PEEP of 8. His current pulse ox is 93%. Chest x-ray from today is showing cardiomegaly. There is pulmonary vascular congestion. There is also consolidation of the right lung which we suspected this was related to a n underlying pneumonia. There is also bibasilar infiltrates. No pneumothorax. No pleural effusion. ET tube was in a good location. His sputum productions with orotracheal tube has subsided and the cultures that were collected earlier has not resulted in to have positive growth. The patient remains on IV Zosyn as an empiric antibiotic coverage. He is afebrile for now. As mentioned earlier, he is able to communicate once sedation is off and wheezing. Neurologically the patient is intact. In terms of hemodynamics, current rhythm is sinus. He has a bundle-branch block pattern, left-sided and the patient remains on amiodarone 1 mg per minute. His anticoagulation with IV heparin was held as the patient was being considered for a PEG and trach today. I may restart anticoagulation as long as we have a PTT breathing on this patient. Note that his triglyceride levels was up to 987. He was taken off the propofol. He is supposed to undergo dialysis today. He is able to undergo dialysis without any major issues. His BUN is at 87 with a creatinine of 7.2. His sodium level is at 131 with a potassium level of 5.5. Hemoglobin today is at 8.8 with a white cell count of 13.0. The enteral feeding has been held this morning in preparation for PEG and trach. I'm going to start him back on feeding today which is in the form of Nepro at the rate of 23 mL an hour. 2020, the patient is being seen for a follow-up. The plan is to proceed with a PEG tube a tracheostomy tube insertion tomorrow. The procedure yesterday got complicated as the patient desaturated and operate. This morning, he is on a combination of Precedex and fentanyl drip for sedation. Precedex is running at 0.7 mcg/kg/h and fentanyl is running at 2 mcg/kg/h. He still opens up his eyes. He is partially responsive to painful stimulation and tactile stimulation. Meanwhile, he remains on a mechanical ventilator. He remains on assist control mode at the rate of 20 with a tidal volume of 600 and FiO2 of 50% with a PEEP of 8. Blood gases from this morning show a pH of 7.39 with a pCO2 of 36 and pO2 of 88. No significant orotracheal secretions. Awaiting follow-up chest x-ray from today. Meanwhile, the sputum culture came back negative and the patient was covered empirically with IV Zosyn. He is currently off the amiodarone drip. Cardiac rhythm still in atrial fibrillation which is under better control. He remains also on IV heparin. Note that he goes back and forth between sinus rhythm and atrial fibrillation. His ejection fraction is less than 20%. He is tolerating his enteral feeding for nutritional support. He is afebrile. Potassium today's of 5.7 and this will be treated medically and the patient underwent his hemodialysis yesterday. No dialysis to follow first thing in the morning. BUN is at 84 with a creatinine of 6.4. In regards to his high potassium, he'll be given 10 units of regular insulin along with D50 in addition to 4 bicarb doses of 50 mEq. We'll monitor his potassium level. Patient was reevaluated today on 10/01/2020, remains in the ICU, intubated and mechanically ventilated. Patient is on volume control plus with volume of 600, FiO2 50%, inspiratory time of 0.9 seconds, PEEP at 8, rate is at 20. Vent changes were made today, increase rate to 26 decreased I'll volume to 550 and decreased inspiratory time to 0.80. Patient remains on fentanyl at 2 mcg/kg/h, he is on Precedex at 0.7 mcg/kg/m. He is also on heparin but presently off since the patient is going for tracheostomy and PEG tube placement. He is off norepinephrine. ABG this morning showed a pO2 of 88 pCO2 of 41 pH of 7.34. He is in atrial fibrillation with a rate of 106. Patient is on hemodialysis, received dialysis today and 2 L were off. Last hemodialysis was 09/28 and 1.8 L were taken off. He is empirically on Zosyn which may have to be discontinued, patient had over 11 days of Zosyn. And no clear-cut culture to treat. Chest x- ray showed indwelling tubes and catheters are in place. Scattered perihilar infiltrates and bibasilar infiltrates are the same. Pleural effusion is also unchanged. Potassium today is 5.7. WBC is 4.8 hemoglobin is 7.8. Blood sugar is 87. BUN is 111 creatinine 7.46. Liver enzymes are elevated with ALT of 26 AST of 396 alkaline phosphatase of 232. Patient was reevaluated today on 10/02/2020, remains in the ICU intubated and mechanically ventilated. Patient underwent uneventful tracheostomy and PEG tube placement yesterday. Ventilator settings are assist control rate of 26 tidal volume is 550 he is on volume control plus, FiO2 50% and PEEP is at 8. ABG showed a pO2 of 97 pCO2 of 38 pH of 7.37. Patient remains on Precedex, and 0.7, norepinephrine at 0.02, fentanyl 2 mcg/kg/h, and IV fluid at KVO. Patient is receiving dialysis during my evaluation. He is hemodynamically marginal, requiring norepinephrine. My plan is to cut down on the fentanyl, hopefully that will improve his blood pressure today. Yesterday he had 2 L off after hemodialysis, and so far dialysis seems to be ongoing again today. Neurologically the patient is about the same. He opens eyes but does not follow any instructions, does not follow any commands. He grimaces to painful stimuli. Labs today showed WBC count of 13.4 hemoglobin is 8.1. Potassium is 6.3 and that would be corrected by hemodialysis. Blood sugar is 85. Patient was rest arted back on heparin drip today. It was on hold for his tracheostomy and PEG tube placement. Chest x-ray showed unchanged hazy airspace opacities and but may be a small left pleural effusion Objective - Vital Signs Vital signs: Vital Signs Temp 98.6 F 10/01/20 20:00 Pulse 106 H 10/02/20 11:17 Resp 26 H 10/02/20 10:00 BP 106/55 10/02/20 09:00 Pulse Ox 96 10/02/20 10:00 Intake & Output 10/01/20 10/02/20 10/02/20 18:59 06:59 18:59 Intake Total 1071.364 715 318.163 Output Total 2305 20 10 Balance -1233.636 695 308.163 Weight 157.1 kg 157.8 kg Intake: IV 240 235 158 0.9 Normal Saline 60 15 18 Pressure Bag Sodium Chloride 0.9% 1, 80 120 40 000 ml @ 10 mls/hr IV . Q24H JOR[facility] Rx#:[id number] Zosyn 100 100 100 Intake, IV Titration 486.364 450 130.163 Amount Dexmedetomidine/0.9% NaCl 100 (Pmx) 400 mcg In Empty Bag 1 bag @ Titrate IV . Q0M [facility]OR[facility] Rx#:[id number] Dexmedetomidine/0.9% NaCl 100.000 200 100 (Pmx) 400 mcg In Empty Bag 1 bag @ Titrate IV . Q0M [facility]OR[facility] Rx#:[id number] Heparin Sod,Pork in 0.45% 17.113 0 NaCl 25,000 unit In 0.45 % NaCl 1 250ml.bag @ 8.13 UNITS/KG/HR 10 mls/hr IV .Q24H [facility]OR[facility]NA Rx#:[id number] Norepinephrine 8 mg In 19.251 0 30.163 Sodium Chloride 0.9% 250 ml @ 0.05 MCG/KG/MIN 13. 816 mls/hr IV .[id number] [facility]OR[facility] Rx#:[id number] fentaNYL (PF) 2,500 mcg 250 250 In Sodium Chloride 0.9% 200 ml @ Per Protocol IV .Q0M JOR[facility]NA Rx#:[id number] Tube Feeding 0 30 Hemodialysis 300 Other 45 30 Output: Urine 0 20 10 Hemodialysis 2300 Estimated Blood Loss 5 Other: Voiding Method Indwelling Catheter Indwelling Catheter Indwelling Catheter ABP, PAP, CO, CI - Last Documented Arterial Blood Pressure 114/66 - Exam Physical Exam: Revealed 59-year-old white male intubated and mechanically ventilated, opens eyes does not for any other instructions. Head: Atraumatic, normocephalic. Tracheostomy is intact. HEENT:[Neck is supple.] [No neck masses.] [No thyromegaly.] [No JVD.] The left, EOMI, nonicteric, moist mucous membranes. Chest: [Symmetrical chest expansion, crackles at the bases.] Cardiac Exam: Irregular irregular rhythm, 2/6 systolic murmur thought the precordium. Distant S1 and S2. Abdomen: [Obese, Soft, nontender, no megaly, no rebound, no guarding, negative bowel sounds. Extremities: [No clubbing, 2+ bipedal edema, no cyanosis.] Good pulses bilaterally. Dialysis catheter is in the left femoral vein. Neurological Exam: Opens eyes, otherwise does not respond to any stimuli. Skin: No rashes. Psychiatric: Could not assess, patient is encephalopathic. - Labs CBC & Chem 7: 10/02/20 04:30 10/02/20 04:30 Labs: Abnormal Lab Results - Last 24 Hours (Table) 10/01/20 10/02/20 10/02/20 Range/Units 11:11 04:30 04:30 WBC 13.4 H (3.8-10.6) k/uL RBC 2.49 L (4.30-5.90) m/uL Hgb 8.1 L (13.0-17.5) gm/dL Hct 23.5 L (39.0-53.0) % Plt Count 557 H (150-450) k/uL APTT (22.0-30.0) sec Sodium 134 L (137-145) mmol/L Potassium 5.7 H 6.3 H* (3.5-5.1) mmol/L Chloride 97 L (98-107) mmol/L Carbon Dioxide 21 L (22-30) mmol/L BUN 102 H* (9-20) mg/dL Creatinine 6.79 H (0.66-1.25) mg/dL POC Glucose (mg/dL) (75-99) mg/dL Calcium 7.1 L (8.4-10.2) mg/dL Magnesium 2.7 H (1.6-2.3) mg/dL 10/02/20 10/02/20 Range/Units 04:30 07:13 WBC (3.8-10.6) k/uL RBC (4.30-5.90) m/uL Hgb (13.0-17.5) gm/dL Hct (39.0-53.0) % Plt Count (150-450) k/uL APTT 19.1 L (22.0-30.0) sec Sodium (137-145) mmol/L Potassium (3.5-5.1) mmol/L Chloride (98-107) mmol/L Carbon Dioxide (22-30) mmol/L BUN (9-20) mg/dL Creatinine (0.66-1.25) mg/dL POC Glucose (mg/dL) 108 H (75-99) mg/dL Calcium (8.4-10.2) mg/dL Magnesium (1.6-2.3) mg/dL Assessment and Plan Assessment: Impression: Acute hypoxic respiratory failure secondary to cardiac arrest. Patient presented with V. fib cardiac arrest. Status post cardiac catheterization and stenting of the circumflex Severe ischemic cardiomyopathy and LV dysfunction. Hypoxic encephalopathy. Suspect anoxic brain injury. Acute kidney injury secondary to acute tubular necrosis and cardiac arrest. Patient is requiring hemodialysis. Shock liver. Paroxysmal atrial fibrillation. Restarted back on heparin today. Hypothyroidism. History of depression. Fluid overload with extensive edema in lower and upper extremities as well as scrotal swelling noted. Related to renal failure and acute kidney injury, patient is improving with dialysis. Status post tracheostomy and PEG tube placement on 10/01/2020. Recommendation: Continue ventilatory support. Resume nutritional support. Resume heparin as per protocol. Continue enteral feeding/nutritional support. Via PEG tube today. Continue hemodynamic support if needed. Continue hemodialysis. Continue GI and DVT prophylaxis. Patient remains critically ill. Prognosis remains extremely poor and guarded, and quality of life is expected to be very poor. We will continue to follow. Critical care time is over 30 minutes. Time with Patient: Greater than 30
--- NOTE | 2020-10-02 12:49 | PN ---
PROGRESS NOTE The patient is seen for followup for acute kidney injury. He remains oliguric and dialysis dependent patient. He has been hyperkalemic requiring daily dialysis treatments. The patient is seen on hemodialysis again today. He is status post trach and PEG. PHYSICAL EXAMINATION: On examination today, patient is sedated. He is on the vent. Heart rate about 106 per minute. Blood pressure 106/55. Examination of the heart S1, S2. Examination of the lungs, bilateral breath sounds are heard. Abdomen is soft, nontender. Examination of lower extremities shows trace edema bilaterally. HOME HEALTH CARE PROVIDER exam cannot be performed. LAB: Show sodium 134, potassium 6.8, chloride 97, BUN 102, serum creatinine 6.79, hemoglobin 8.1 g/dL. ASSESSMENT: 1. Acute kidney injury, oliguric acute tubular necrosis, currently hemodialysis dependent, maintained on daily dialysis for now. We will dialyze him on a bigger dialyzer and use of 1 K bath to help with the hypercatabolic state and hyperkalemia. 2. Acute hypoxic respiratory failure, currently maintained on the vent. 3. Status post cardiac arrest. 4. Atrial fibrillation with RVR maintained on amiodarone, currently with controlled ventricular response. 5. Status post cardiogenic shock. 6. Coronary artery disease status post cardiac catheterization, coronary stent placement on 09/17/2020. 7. Hyperphosphatemia maintained on phosphate binders. 8. Severe cardiomyopathy, ejection fraction 20-25%. PLAN: Maintain daily dialysis for now. We will dialyze on a large dialyzer with a 1K bath to help with the hyperkalemia and hypercatabolic state. Repeat labs in a.m. MMODL / IJN: [id number] /
--- NOTE | 2020-10-02 13:11 | P.PN ---
Subjective Progress Note Date: 10/02/20 Patient was seen and evaluated by me this he was getting dialysis at the time of my evaluation. His postoperative day #1 status post trach and PEG placement. No acute events overnight reported by nursing staff. Objective - Vital Signs Vital signs: Vital Signs Temp 99.0 F 10/02/20 12:46 Pulse 112 H 10/02/20 12:46 Resp 33 H 10/02/20 12:46 BP 84/56 10/02/20 12:46 Pulse Ox 97 10/02/20 12:00 Intake & Output 10/01/20 10/02/20 10/02/20 18:59 06:59 18:59 Intake Total 1071.364 715 650.163 Output Total 2305 20 2210 Balance -1233.636 695 -1559.837 Weight 157.1 kg 157.8 kg Intake: IV 240 235 190 0.9 Normal Saline 60 15 30 Pressure Bag Sodium Chloride 0.9% 1, 80 120 60 000 ml @ 10 mls/hr IV . Q24H [facility] Rx#:[id number] Zosyn 100 100 100 Intake, IV Titration 486.364 450 380.163 Amount Dexmedetomidine/0.9% NaCl 100 (Pmx) 400 mcg In Empty Bag 1 bag @ Titrate IV . Q0M [facility] Rx#:[id number] Dexmedetomidine/0.9% NaCl 100.000 200 100 (Pmx) 400 mcg In Empty Bag 1 bag @ Titrate IV . Q0M [facility] Rx#:[id number] Heparin Sod,Pork in 0.45% 17.113 0 NaCl 25,000 unit In 0.45 % NaCl 1 250ml.bag @ 8.13 UNITS/KG/HR 10 mls/hr IV .Q24H [facility] Rx#:[id number] Norepinephrine 8 mg In 19.251 0 30.163 Sodium Chloride 0.9% 250 ml @ 0.05 MCG/KG/MIN 13. 816 mls/hr IV .[id number] [facility] Rx#:[id number] fentaNYL (PF) 2,500 mcg 250 250 250 In Sodium Chloride 0.9% 200 ml @ Per Protocol IV .Q0M [facility] Rx#:[id number] Tube Feeding 0 50 Hemodialysis 300 Other 45 30 30 Output: Urine 0 20 10 Hemodialysis 2300 2200 Estimated Blood Loss 5 Other: Voiding Method Indwelling Catheter Indwelling Catheter Indwelling Catheter ABP, PAP, CO, CI - Last Documented Arterial Blood Pressure 88/48 - Exam General: The patient is sedated and intubated Eye: there is normal conjunctiva bilaterally. Neck: The neck is supple, there is no JVD. Cardiovascular: Normal S1-S2, no S3-S4, no murmurs. Respiratory: Lungs with mechanical ventilator sounds Gastrointestinal: Abdomen is distended but soft, nontender Musculoskeletal: There is evidence of anasarca up to the abdomen. Skin: Skin is warm and dry - Labs CBC & Chem 7: 10/02/20 04:30 10/02/20 04:30 Labs: Abnormal Lab Results - Last 24 Hours (Table) 10/02/20 10/02/20 10/02/20 Range/Units 04:30 04:30 04:30 WBC 13.4 H (3.8-10.6) k/uL RBC 2.49 L (4.30-5.90) m/uL Hgb 8.1 L (13.0-17.5) gm/dL Hct 23.5 L (39.0-53.0) % Plt Count 557 H (150-450) k/uL APTT 19.1 L (22.0-30.0) sec Sodium 134 L (137-145) mmol/L Potassium 6.3 H* (3.5-5.1) mmol/L Chloride 97 L (98-107) mmol/L Carbon Dioxide 21 L (22-30) mmol/L BUN 102 H* (9-20) mg/dL Creatinine 6.79 H (0.66-1.25) mg/dL POC Glucose (mg/dL) (75-99) mg/dL Calcium 7.1 L (8.4-10.2) mg/dL Magnesium 2.7 H (1.6-2.3) mg/dL 10/02/20 Range/Units 07:13 WBC (3.8-10.6) k/uL RBC (4.30-5.90) m/uL Hgb (13.0-17.5) gm/dL Hct (39.0-53.0) % Plt Count (150-450) k/uL APTT (22.0-30.0) sec Sodium (137-145) mmol/L Potassium (3.5-5.1) mmol/L Chloride (98-107) mmol/L Carbon Dioxide (22-30) mmol/L BUN (9-20) mg/dL Creatinine (0.66-1.25) mg/dL POC Glucose (mg/dL) 108 H (75-99) mg/dL Calcium (8.4-10.2) mg/dL Magnesium (1.6-2.3) mg/dL Assessment and Plan Assessment: Patient is a 59-year-old male with a history of hypertension, hypothyroidism, a nd obesity who presented to the ER after cardiac arrest in the field. He had multiple rounds of CPR, Epi, and Defib prior to obtaining ROSC. It appears that his down time in the field was approximately 30 minutes on review of the EMS run sheet. He was intubated and sedated he underwent a left heart cath with stent to the LAD and impella placement. Echocardiogram demonstrated an EF of less than 20% with global hypokenesis. He was determined to be in cardiogenic shock requiring dopamine, dobutamine, and levophed. He has required a Nimbex drip to maintain adequate ventilation until 09/20/20. He demonstrated shock liver on arrival. He has also had progressive anuric renal failure, nephrology was consulted HD was initiated on 09/21/20. He had one abnormal EEG with worsening of EEG on 09/20/20. We have been unable to wean sedation due to agitation and there are concerns for severe anoxic encephalopathy. His CXR was worsening and procalcitonin was elevated and he was started on zosyn with concerns for possible underlying PNA. He had not been awake or following commands with sedation holidays. Below is the list list of his medical problems addressed during this hospitalization V. fib arrest due to ST segment elevated myocardial infarction status post PCI to the circumflex and impella placement Acute systolic congestive heart failure Ischemic cardiomyopathy with ejection fraction less than 20% Cardiogenic shock Cold and mottled right foot - dopamine off 09/23/20, dobutamine, levophed off by 09/22/20 - cardio following closely - ASA, Plavix, lipitor, and amiodarone -Attempt to place trach and PEG 09/29 aborted secondary to hypoxia and worsening respiratory status on the vent -Plan to reattempt trach and PEG today Paroxysmal atrial fibrillation: Cardiology following closely Hypoxic/Anoxic encephalopathy, improved. Patient is awake and following simple commands when off sedation - neuro recs - continue with sedation holidays - CT head with no acute findings Acute kidney injury secondary to hypoperfusion and likely ATN requiring hemodialysis Hyperphosphatemia Hyperkalemia - nephrology following closely -PhosLo 4 times a day, dose has been increased over this admission with minimal improvement in his phosphorus level - Avoid nephrotoxic agents Acute hypoxic respiratory failure Pneumonia possible gram negative, completed treatment - Finished a course of IV Zosyn - pulm recs following closely Anemia - Thrombocytopenia - follow CBC - no indication for transfusion at this point in time. Generalized Dermatitis, improved with IV steroids Morbid obesity with BMI 37.7 Shock liver, resolved Poor overall prognosis. DVT prophylaxis: heparin Discussed with: nursing Discharge planning to LTAC awaiting placement A total of 35 minutes was spent on the care of this complex patient more than 50% of the time was spent in counseling and care coordination.
--- NOTE | 2020-10-02 14:30 | P.PN ---
Subjective Progress Note Date: 10/02/20 10/02/2020: Patient had undergone tracheostomy and PEG placement yesterday. Patient is on fentanyl 1.5 and Precedex 0.6 g infusion. Patient is very awake, eyes open, blinking regularly. Patient apparently appears to be slightly slightly trying to turn his gaze towards the caller. However it was not consistent. One time he grimaced with nailbed pressure. Did not follow any directions, did not wiggle his feet or toes. 10/01/2020: Patient was seen for a follow-up. Patient is now opening his eyes, but continues to be severely encephalopathic. Please refer to examination below. Patient is currently on fentanyl 2 g, and Precedex 0.7 mcg/kg infusion. No seizure-like activity has been reported. 09/21/2020: Patient's was also present. Patient is currently on propofol 60 g. Patient underwent complete sedation holiday for 10 minutes. Patient is moving all 4 extremities randomly, but did not follow commands. His eyes were open, and the gaze was straight ahead, but no tracking or making eye contact. He would shake head [id number] randomly. Patient at present is on Levothroid 0.2, dopamine 2.5, dobutamine 3.5. Patient also has developed arrhythmia with atrial fibrillation, PVCs for which he is on amiodarone. Patient on subcu heparin. 09/20/2020: Patient was seen for a follow-up. Patient's father, patient's and his [id number] were present. Nurse was also present. Patient currently on propofol 64 g. He is off fentanyl and Nimbex. According to nurse report, when she performed sedation holiday, patient was moving all 4 extremities randomly, trying to sit up, opened his eyes, but gaze was upwards. He did not follow any directions. He did not make any eye contact or tract with his vision. Patient is still on dobutamine 3.5 g, dopamine 2.5 mcg. 09/19/2020: Patient was seen for a follow-up. Patient's family was also present today. Nurse was also present. Patient continues to be extremely critically sick. Still not able to be able to obtain CAT scan. Patient currently on multiple pressors including dobutamine 3.5 mcg/kg, dopamine 2.5 mcg/kg, Levophed 40 mcg/m. Patient is also on Nimbex 0.5 mcg/kg, propofol 60 mcg/kg and fentanyl 2 mg/kg. Impella has been removed earlier today. 09/18/2020: Patient was seen for a follow-up. Please refer to Dr. Fadi Johnson note for details. Patient came to the hospital with cardiac arrest. Exact downtime unclear, although some report states 20 minutes. Patient had acute DE, for which he underwent cardiac stenting. At present patient is on sedation with propofol 70 g, which is a high dose. He has a cardiac device, which prevents him from getting computed tomography scan. Per nursing report, when sedation is decreased, he does move all 4 extremities randomly, although not purposefully. He did open his eyes. At present patient is sedated. Objective - Vital Signs Vital signs: Vital Signs Temp 99.0 F 10/02/20 12:46 Pulse 93 10/02/20 13:00 Resp 27 H 10/02/20 13:00 BP 84/56 10/02/20 12:46 Pulse Ox 96 10/02/20 13:00 Intake & Output 10/01/20 10/02/20 10/02/20 18:59 06:59 18:59 Intake Total 1071.364 715 753.096 Output Total 2305 20 2210 Balance -1233.636 695 -1456.904 Weight 157.1 kg 157.8 kg Intake: IV 240 235 222 0.9 Normal Saline 60 15 42 Pressure Bag Sodium Chloride 0.9% 1, 80 120 80 000 ml @ 10 mls/hr IV . Q24H [facility] Rx#:[id number] Zosyn 100 100 100 Intake, IV Titration 486.364 450 431.096 Amount Dexmedetomidine/0.9% NaCl 100 (Pmx) 400 mcg In Empty Bag 1 bag @ Titrate IV . Q0M [facility] Rx#:[id number] Dexmedetomidine/0.9% NaCl 100.000 200 100 (Pmx) 400 mcg In Empty Bag 1 bag @ Titrate IV . Q0M [facility] Rx#:[id number] Dexmedetomidine/0.9% NaCl 0.46 (Pmx) 400 mcg In Empty Bag 1 bag @ Titrate IV . Q0M [facility] Rx#:[id number] Heparin Sod,Pork in 0.45% 17.113 0 NaCl 25,000 unit In 0.45 % NaCl 1 250ml.bag @ 8.13 UNITS/KG/HR 10 mls/hr IV .Q24H [facility] Rx#:[id number] Norepinephrine 8 mg In 19.251 0 39.281 Sodium Chloride 0.9% 250 ml @ 0.05 MCG/KG/MIN 13. 816 mls/hr IV .[id number] [facility] Rx#:[id number] fentaNYL (PF) 2,500 mcg 250 250 291.355 In Sodium Chloride 0.9% 200 ml @ Per Protocol IV .Q0M [facility] Rx#:[id number] Tube Feeding 0 70 Hemodialysis 300 Other 45 30 30 Output: Urine 0 20 10 Hemodialysis 2300 2200 Estimated Blood Loss 5 Other: Voiding Method Indwelling Catheter Indwelling Catheter Indwelling Catheter ABP, PAP, CO, CI - Last Documented Arterial Blood Pressure 82/44 - Exam On examination patient is on Precedex 0.6 mcg/kg and fentanyl 1.5 mcg. Patient's eyes are open, blinking, and apparently tried to turn his eyes very slightly towards me when I called his name and shook his shoulder. However inconsistent response. Patient has bilateral pupils are round and reacting. Corneals are present. He does have a gag and cough. Tone is equal bilaterally. Reflexes are 1+ in the upper and lower limbs and plantars are clearly upgoing bilaterally. Patient's peripheral edema has improved. He is getting dialysis. Abdomen is less tense, less distended from fluid overload. He is having regular BMs per nurse. Positive peripheral edema. - Labs CBC & Chem 7: 10/02/20 04:30 10/02/20 04:30 Labs: Abnormal Lab Results - Last 24 Hours (Table) 10/02/20 10/02/20 10/02/20 Range/Units 04:30 04:30 04:30 WBC 13.4 H (3.8-10.6) k/uL RBC 2.49 L (4.30-5.90) m/uL Hgb 8.1 L (13.0-17.5) gm/dL Hct 23.5 L (39.0-53.0) % Plt Count 557 H (150-450) k/uL APTT 19.1 L (22.0-30.0) sec Sodium 134 L (137-145) mmol/L Potassium 6.3 H* (3.5-5.1) mmol/L Chloride 97 L (98-107) mmol/L Carbon Dioxide 21 L (22-30) mmol/L BUN 102 H* (9-20) mg/dL Creatinine 6.79 H (0.66-1.25) mg/dL POC Glucose (mg/dL) (75-99) mg/dL Calcium 7.1 L (8.4-10.2) mg/dL Magnesium 2.7 H (1.6-2.3) mg/dL 10/02/ Range/Units 07:13 WBC (3.8-10.6) k/uL RBC (4.30-5.90) m/uL Hgb (13.0-17.5) gm/dL Hct (39.0-53.0) % Plt Count (150-450) k/uL APTT (22.0-30.0) sec Sodium (137-145) mmol/L Potassium (3.5-5.1) mmol/L Chloride (98-107) mmol/L Carbon Dioxide (22-30) mmol/L BUN (9-20) mg/dL Creatinine (0.66-1.25) mg/dL POC Glucose (mg/dL) 108 H (75-99) mg/dL Calcium (8.4-10.2) mg/dL Magnesium (1.6-2.3) mg/dL Assessment and Plan Assessment: * Status post out of hospital cardiac arrest with prolonged downtime, at least 20 minutes or slightly longer. Patient continues to have significant encephalopathy, probably anoxic encephalopathy with some component of toxic metabolic encephalopathy from acute renal failure and medication effect. * Patient undergoing trach and PEG placement today. * STEMI s/p PCI to circumflex and status post removal of impella placement * Acute kidney injury, requiring hemodialysis, current BUN 102 and creatinine 6.79. * Severe electrolyte imbalance with potassium 6.3, phosphorus 12.3/4.5, low calcium. * Anemia, hemoglobin 7.8 * Elevated liver function test, AST 396, normal ALT. * Congestive heart failure * Paroxysmal atrial fibrillation, not on anticoagulants. * Cardiomegaly Plan: * Patient's level of consciousness is much improved, appears awake, blinking, but still significantly encephalopathic. Some very minimal tracking movement noticed with the eye. No movements noticed in the arms or legs with command. * Patient had undergone tracheostomy and PEG placement 10/01/2020. * EEG 09/20/2020, which was abnormal due to background slowing of moderate to severe degree. This is slightly more asymmetric involving the right hemisphere as compared to the left. This is suggestive of generalized cerebral dysfunction as can be seen with anoxic or toxic metabolic encephalopathy or from underlying structural abnormality. No epileptiform activity was seen. When compared to the EEG from 09/17/2020, the background appears to have got worse. * CT of the head 09/26/2020 showed no acute process. Evidence of small hy podensity in the left centrum semiovale in the posterior frontal region. This was also present on computed tomography scan from 09/22/2020. * Ammonia level 10. * 2-D echo revealed presence of Impella device. Left ventricle severely dilated. Severe global hypokinesis of the left ventricle, EF is <20%. Cardiology is on board. * Possible transfer to long-term care facility, when medically cleared. * Will defer the rest of the medical management to the IM and other specialties.
--- NOTE | 2020-10-02 14:58 | P.PN ---
Subjective Progress Note Date: 10/02/20 Principal diagnosis: Respiratory failure Patient is stable on the ventilator. Remains sedated. No issues with the tracheostomy her feeding tube. Objective - Vital Signs Vital signs: Vital Signs Temp 99.0 F 10/02/20 12:46 Pulse 93 10/02/20 13:00 Resp 27 H 10/02/20 13:00 BP 84/56 10/02/20 12:46 Pulse Ox 96 10/02/20 13:00 Intake & Output 10/01/20 10/02/20 10/02/20 18:59 06:59 18:59 Intake Total 1071.364 715 753.096 Output Total 2305 20 2210 Balance -1233.636 695 -1456.904 Weight 157.1 kg 157.8 kg Intake: IV 240 235 222 0.9 Normal Saline 60 15 42 Pressure Bag Sodium Chloride 0.9% 1, 80 120 80 000 ml @ 10 mls/hr IV . Q24H [facility] Rx#:[id number] Zosyn 100 100 100 Intake, IV Titration 486.364 450 431.096 Amount Dexmedetomidine/0.9% NaCl 100 (Pmx) 400 mcg In Empty Bag 1 bag @ Titrate IV . Q0M [facility] Rx#:[id number] Dexmedetomidine/0.9% NaCl 100.000 200 100 (Pmx) 400 mcg In Empty Bag 1 bag @ Titrate IV . Q0M [facility] Rx#:[id number] Dexmedetomidine/0.9% NaCl 0.46 (Pmx) 400 mcg In Empty Bag 1 bag @ Titrate IV . Q0M [facility] Rx#:[id number] Heparin Sod,Pork in 0.45% 17.113 0 NaCl 25,000 unit In 0.45 % NaCl 1 250ml.bag @ 8.13 UNITS/KG/HR 10 mls/hr IV .Q24H [facility] Rx#:[id number] Norepinephrine 8 mg In 19.251 0 39.281 Sodium Chloride 0.9% 250 ml @ 0.05 MCG/KG/MIN 13. 816 mls/hr IV .[id number] [facility] Rx#:[id number] fentaNYL (PF) 2,500 mcg 250 250 291.355 In Sodium Chloride 0.9% 200 ml @ Per Protocol IV .Q0M [facility] Rx#:[id number] Tube Feeding 0 70 Hemodialysis 300 Other 45 30 30 Output: Urine 0 20 10 Hemodialysis 2300 2200 Estimated Blood Loss 5 Other: Voiding Method Indwelling Catheter Indwelling Catheter Indwelling Catheter ABP, PAP, CO, CI - Last Documented Arterial Blood Pressure 82/44 - Exam Both tracheostomy and PEG tube catheters in place without evidence of bleeding or infection - Labs CBC & Chem 7: 10/02/20 04:30 10/02/20 04:30 Labs: Abnormal Lab Results - Last 24 Hours (Table) 10/02/20 10/02/20 10/02/20 Range/Units 04:30 04:30 04:30 WBC 13.4 H (3.8-10.6) k/uL RBC 2.49 L (4.30-5.90) m/uL Hgb 8.1 L (13.0-17.5) gm/dL Hct 23.5 L (39.0-53.0) % Plt Count 557 H (150-450) k/uL APTT 19.1 L (22.0-30.0) sec Sodium 134 L (137-145) mmol/L Potassium 6.3 H* (3.5-5.1) mmol/L Chloride 97 L (98-107) mmol/L Carbon Dioxide 21 L (22-30) mmol/L BUN 102 H* (9-20) mg/dL Creatinine 6.79 H (0.66-1.25) mg/dL POC Glucose (mg/dL) (75-99) mg/dL Calcium 7.1 L (8.4-10.2) mg/dL Magnesium 2.7 H (1.6-2.3) mg/dL 10/02/20 Range/Units 07:13 WBC (3.8-10.6) k/uL RBC (4.30-5.90) m/uL Hgb (13.0-17.5) gm/dL Hct (39.0-53.0) % Plt Count (150-450) k/uL APTT (22.0-30.0) sec Sodium (137-145) mmol/L Potassium (3.5-5.1) mmol/L Chloride (98-107) mmol/L Carbon Dioxide (22-30) mmol/L BUN (9-20) mg/dL Creatinine (0.66-1.25) mg/dL POC Glucose (mg/dL) 108 H (75-99) mg/dL Calcium (8.4-10.2) mg/dL Magnesium (1.6-2.3) mg/dL Assessment and Plan (1) Acute respiratory failure Narrative/Plan: Continue utilizing PEG tube at this time. Slowly advance to goal tube feeds. Monitor trach site. Will follow. Current Visit: Yes Status: Acute Code(s): J96.00 - ACUTE RESPIRATORY FAILURE, UNSP W HYPOXIA OR HYPERCAPNIA SNOMED Code(s): 70719594
[2020-10-02] MEDS ORDERED: ACETAMINOPHEN IV (For NPO) 1,000 MG in EMPTY BAG 1 BAG IVPB ONE (16:15)
[2020-10-02] MEDS: NOREPINEPHRINE 8 MG in SODIUM CHLORIDE 0.9% 250 ML IV SCH (16:38)
[2020-10-02 18:03] LABS: Glucose,Whole Blood 114 mg/dL (75-99)
[2020-10-02] MEDS: HYDROmorphone 1 MG/ML 1 ML SYRINGE IVP PRN (21:45)
[2020-10-03] MEDS: fentaNYL (PF) 2,500 MCG in SODIUM CHLORIDE 0.9% 200 ML IV SCH ×2 (00:02→08:50)
[2020-10-03] MEDS: HEPARIN SOD,PORK IN 0.45% NACL 25,000 UNIT in 0.45% NACL 1 250ML.BAG IV SCH (02:08)
[2020-10-03] MEDS: DEXMEDETOMIDINE/0.9% NACL(PMX) 400 MCG in EMPTY BAG 1 BAG IV SCH ×3 (02:32→11:36)
[2020-10-03] MEDS: IPRATROPIUM-ALBUTEROL 3 ML NEB INHALATION SCH ×6 (03:26→23:09)
[2020-10-03 04:10] LABS: Glucose,Whole Blood 115 mg/dL (75-99)
[2020-10-03 04:25] LABS: HGB 8.1 gm/dL (13.0-17.5); MCH 32.5 pg (25.0-35.0); MCHC 33.7 g/dL (31.0-37.0); MCV 96.2 fL (80.0-100.0); Mean Platelet Volume 8.4; Platelet Count 581 k/uL (150-450); RBC 2.49 m/uL (4.30-5.90); WBC 16.1 k/uL (3.8-10.6)
[2020-10-03] MEDS: HYDROmorphone 1 MG/ML 1 ML SYRINGE IVP PRN (04:48)
[2020-10-03] MEDS: HEPARIN SODIUM 1,000 UN/ML (10ML VL) IV PRN ×2 (04:57→12:58)
[2020-10-03 05:03] LABS: Calcium 7.8 mg/dL (8.4-10.2); Potassium 5.3 mmol/L (3.5-5.1)
[2020-10-03 05:55] LABS: Glucose,Whole Blood 116 mg/dL (75-99)
[2020-10-03 06:13] LABS: ABG Base Excess -1.8 mmol/L; ABG HCO3 24 mmol/L (21-25); ABG Oxygen Saturation 93.4 % (94-97); ABG PCO2 42 mmHg (35-45); ABG PH 7.36 (7.35-7.45); ABG PO2 75 mmHg (83-108); ABG TCO2 25 mmol/L (19-24)
[2020-10-03 06:18] LABS: Allen Test Performed? No
[2020-10-03] MEDS: LEVOTHYROXINE 50 MCG TAB PO SCH (06:38)
--- NOTE | 2020-10-03 08:35 | XR ---
EXAMINATION TYPE: XR chest 1V portable DATE OF EXAM: 10/03/2020 COMPARISON: 10/02/2020 HISTORY: SOB, Follow Up FINDINGS: Indwelling tubes and catheters are unchanged. No change in bibasilar opacities. Stable appearance of the cardio-mediastinal structures at this time. Pleural effusion unchanged. IMPRESSION: 1. Stable portable chest. Clinical correlation and follow up until resolution is recommended.
[2020-10-03] MEDS: CHLORHEXIDINE GLUCONATE 15 ML CUP MUCOUS MEM SCH (08:49)
[2020-10-03] MEDS: PANTOPRAZOLE 40 MG/10 ML VIAL IVP SCH (08:49)
[2020-10-03] MEDS: CALCIUM ACETATE 667 MG TAB PO SCH ×4 (08:50→20:37)
[2020-10-03] MEDS: CLOPIDOGREL 75 MG TAB PO SCH (08:50)
[2020-10-03] MEDS: SODIUM BICARBONATE TAB 650 MG TAB PO SCH ×2 (08:50→20:37)
[2020-10-03] MEDS: ASPIRIN 81 MG PO SCH (08:50)
[2020-10-03] MEDS: AMIODARONE 200 MG TAB PO SCH ×2 (08:50→20:36)
[2020-10-03] MEDS: PIPERACILLIN-TAZOBACTAM 3.375 GM in SODIUM CHLORIDE 0.9% 100 ML IVPB SCH (08:51)
[2020-10-03] MEDS: SODIUM CHLORIDE 0.9% 500 ML IV SCH (09:31)
--- NOTE | 2020-10-03 09:45 | P.ARTDOP ---
Arterial Doppler LOWER EXTREMITY ARTERIAL DOPPLER: DATE OF SERVICE: 09/27/2020 Reason for study: Diminished pulse right leg. Doppler waveforms: Multiphasic bilaterally throughout. Pulse volume recording: []. Pressure gradients: None. Ankle-brachial indices: Greater than 1.4 bilaterally. Toe brachial indices: [] on the right, [] on the left Impression: Flow patterns are normal with probably normal perfusion. High ankle pressures suggests calcific wall disease but of no hemodynamic significance..
--- NOTE | 2020-10-03 10:37 | P.PN ---
Subjective This is a 59-year-old male with a past medical history significant for hypertension, hypothyroidism. 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 Patient admitted on 09/17/2020, apparently had a cardiac arrest at home. provided CPR. When EMS arrived the patient was found to be in V. fib. Patient received defibrillation 3 and epi 2. Downtime is unclear. Patient was found to have ST elevation on his EKG and was taken to the director of cath lab upon arrival to the hospital with Dr. Antoine Patient underwent PCI to the circumflex with impella placement. Echocardiogram revealed LF systolic function is severely impaired with an EF <20%, severe global hypokinesis. Patient's course also complicated by new onset atrial fibrillation and acute renal failure started on dialysis. Patient was started on Amiodarone drip on 09/21/20, now transitioned to PO amiodarone. 09/26- CT Brain negative for acute intracranial process. 09/27- LE dopplers completed awaiting read. 09/29- patient was scheduled for Trach and PEG tube placement, however, the patient became hypoxic and developed desaturations, procedure was canceled and rescheduled 10/01. Apparently patient did follow some simple commands 09/22 in the morning with at bedside. 10/01/2020: In ICU. Patient underwent Trach and PEG tube placement. He underwent dialysis with 2.3L removed. He is currently being maintained on amiodarone 400 mg twice a day, aspirin 81 mg daily, Plavix and 5 mg daily, IV heparin, Fentanyl drip, Precedex drip. Levophed is on hold. 10/03/2020 Patient seen in the ICU. He remains intubated on mechanical ventilation. Telemetry reviewed, patient continues to be in atrial fibrillation with controlled rates, wide QRS. Not following commands at this time. He is able to open his eyes and blink. He is currently being maintained on amiodarone 400 mg twice a day, aspirin 81 mg daily, Plavix 75 mg daily, IV heparin, Fentanyl drip, Precedex drip. Levophed was restarted due to hypotension, Now on 0.02mg/kg/min. He is undergoing Dialysis yesterday with 300mL removed. Laboratory data reviewed WBC 16.1, hemoglobin 8.1, platelets 581, sodium 136, potassium 5.3, BUN 87, creatinine 6.05 PHYSICAL EXAM: VITAL SIGNS: Blood pressure 99/62 . HR 91, afebrile GENERAL: In no acute distress-sedated on mechanical ventilation NECK: Supple. No JVD LUNGS: Respirations even and unlabored. Lungs diminished with bilateral crackles at bases. HEART: Irregular rate and rhythm. S1 and S2 heard. Systolic murmur noted EXTREMITIES: No clubbing or cyanosis. NEURO: Sleeping, ASSESSMENT: STEMI, s/p PCI to circumflex and impella placement V-fib arrest Hypertension Dyslipidemia Ischemic cardiomyopathy EF <20% Cardiogenic Shock Acute Hypoxic Respiratory Failure requiring intubation on a mechanical ventilator Acute Renal Failure- requiring hemodialysis - Nephrology following Paroxysmal atrial fibrillation Anemia s/p PEG and Tracheostomy placement 10/01/20 PLAN: -We will continue current medical therapy with dual antiplatelet therapy aspirin and Plavix, amiodarone 400mg BID (Drip started 09/21, PO started 09/29/20). -Continue Heparin drip for now -Recommend weaning Levo as tolerated -Statin has been on hold due to elevated LFTs -Pulmonary following, appreciate recs -Nephrology following for dialysis, appreciate recs -Further recommendations based on clinical course Nurse practitioner note has been reviewed by physician. Signing provider agrees with the documented findings, assessment, and plan of care. Objective - Vital Signs Vital signs: Vital Signs Temp 99.8 F H 10/03/20 04:00 Pulse 84 10/03/20 07:48 Resp 26 H 10/03/20 07:00 BP 84/56 10/02/20 12:46 Pulse Ox 92 L 10/03/20 07:00 Intake & Output 10/02/20 10/03/20 10/03/20 18:59 06:59 18:59 Intake Total 0607.026 6582.418 306.173 Output Total 2230 10 Balance -979.404 4969.418 306.173 Weight 156.9 kg Intake: IV 302 276 16 0.9 Normal Saline 72 66 6 Pressure Bag Sodium Chloride 0.9% 1, 130 110 10 000 ml @ 10 mls/hr IV . Q24H [facility] Rx#:[id number] Zosyn 100 100 Intake, IV Titration 814.197 518.418 270.173 Amount Dexmedetomidine/0.9% NaCl 200 (Pmx) 400 mcg In Empty Bag 1 bag @ Titrate IV . Q0M [facility] Rx#:[id number] Dexmedetomidine/0.9% NaCl 100.00 200 (Pmx) 400 mcg In Empty Bag 1 bag @ Titrate IV . Q0M [facility] Rx#:[id number] Heparin Sod,Pork in 0.45% 74.333 190.035 NaCl 25,000 unit In 0.45 % NaCl 1 250ml.bag @ 8.13 UNITS/KG/HR 10 mls/hr IV .Q24H [facility] Rx#:[id number] Norepinephrine 8 mg In 61.385 6.862 0 Sodium Chloride 0.9% 250 ml @ 0.05 MCG/KG/MIN 13. 816 mls/hr IV .[id number] [facility] Rx#:[id number] fentaNYL (PF) 2,500 mcg 378.479 121.521 270.173 In Sodium Chloride 0.9% 200 ml @ Per Protocol IV .Q0M [facility] Rx#:[id number] Tube Feeding 150 220 20 Other 60 90 Output: Urine 30 10 Hemodialysis 2200 Other: Voiding Method Indwelling Catheter Indwelling Catheter ABP, PAP, CO, CI - Last Documented Arterial Blood Pressure 99/62 - Labs CBC & Chem 7: 10/03/20 03:58 10/03/20 03:58 Labs: Abnormal Lab Results - Last 24 Hours (Table) 10/02/20 10/02/20 10/03/20 Range/Units 18:01 22:00 03:58 WBC (3.8-10.6) k/uL RBC (4.30-5.90) m/uL Hgb (13.0-17.5) gm/dL Hct (39.0-53.0) % Plt Count (150-450) k/uL APTT 30.9 H 37.0 H (22.0-30.0) sec ABG pO2 (83-108) mmHg ABG Total CO2 (19-24) mmol/L ABG O2 Saturation (94-97) % Sodium (137-145) mmol/L Potassium (3.5-5.1) mmol/L BUN (9-20) mg/dL Creatinine (0.66-1.25) mg/dL Glucose (74-99) mg/dL POC Glucose (mg/dL) 114 H (75-99) mg/dL Calcium (8.4-10.2) mg/dL 10/03/20 10/03/20 10/03/20 Range/Units 03:58 03:58 04:07 WBC 16.1 H (3.8-10.6) k/uL RBC 2.49 L (4.30-5.90) m/uL Hgb 8.1 L (13.0-17.5) gm/dL Hct 24.0 L (39.0-53.0) % Plt Count 581 H (150-450) k/uL APTT (22.0-30.0) sec ABG pO2 (83-108) mmHg ABG Total CO2 (19-24) mmol/L ABG O2 Saturation (94-97) % Sodium 136 L (137-145) mmol/L Potassium 5.3 H (3.5-5.1) mmol/L BUN 87 H (9-20) mg/dL Creatinine 6.05 H (0.66-1.25) mg/dL Glucose 106 H (74-99) mg/dL POC Glucose (mg/dL) 115 H (75-99) mg/dL Calcium 7.8 L (8.4-10.2) mg/dL 10/03/20 10/03/20 Range/Units 05:53 05:59 WBC (3.8-10.6) k/uL RBC (4.30-5.90) m/uL Hgb (13.0-17.5) gm/dL Hct (39.0-53.0) % Plt Count (150-450) k/uL APTT (22.0-30.0) sec ABG pO2 75 L (83-108) mmHg ABG Total CO2 25 H (19-24) mmol/L ABG O2 Saturation 93.4 L (94-97) % Sodium (137-145) mmol/L Potassium (3.5-5.1) mmol/L BUN (9-20) mg/dL Creatinine (0.66-1.25) mg/dL Glucose (74-99) mg/dL POC Glucose (mg/dL) 116 H (75-99) mg/dL Calcium (8.4-10.2) mg/dL
[2020-10-03 11:09] LABS: ALT 96 U/L (4-49); AST 576 U/L (17-59); Alkaline Phosphatase 223 U/L (38-126)
--- NOTE | 2020-10-03 11:29 | PN ---
PROGRESS NOTE Patient is seen for followup for acute kidney injury, oliguric ATN and hemodialysis dependent. Currently receiving dialysis on a daily basis. The patient is currently seen on dialysis tolerating his treatment well. Systolic blood pressure around 120 mmHg. Patient is significantly volume overloaded. We will try for about 2-3 L of ultrafiltration today. PHYSICAL EXAMINATION: Today patient is on the vent. He is status post trach and PEG. FiO2 is at 50%. Examination of the heart S1, S2. Examination of the lungs, bilateral breath sounds are heard. Abdomen is soft, nontender. Examination of lower extremities shows edema with severe scrotal edema noted and edema of the upper and lower extremities bilaterally. [employer] exam patient does not follow any commands. His eyes are open, but he does not track. LAB: Show sodium 136, potassium 5.3, chloride 100, BUN 87, creatinine 6.05. ASSESSMENT: 1. Acute kidney injury, oliguric acute tubular necrosis, currently dialysis dependent, receiving daily dialysis. We are dialyzing him on a bigger dialyzer using a 1K bath to help with the persistent hyperkalemia and hypercatabolic state. We will continue daily treatments for now. 2. Severe volume overload. Increase UF to 2-3 L as tolerated today, as well as in a.m. 3. Acute hypoxic respiratory failure. 4. Status post cardiac arrest. 5. Coronary artery disease status post coronary artery stent placement. 6. Cardiomyopathy, ischemic, EF 20-25%. PLAN: Hemodialysis today and then again in a.m. Increase UF to about 2-3 L as tolerated. MMODL / IJN: [id number] /
--- NOTE | 2020-10-03 11:46 | P.PN ---
Subjective Progress Note Date: 10/03/20 10/03/2020: Patient is essentially unchanged. Patient is currently off fentanyl since 8:30 to 9 AM. He is still on Precedex 0.6 g. Patient is awake, with minimal response as mentioned in examination. Patient is getting hemodialysis. 10/02/2020: Patient had undergone tracheostomy and PEG placement yesterday. Patient is on fentanyl 1.5 and Precedex 0.6 g infusion. Patient is very awake, eyes open, blinking regularly. Patient apparently appears to be slightly slightly trying to turn his gaze towards the caller. However it was not consistent. One time he grimaced with nailbed pressure. Did not follow any directions, did not wiggle his feet or toes. 10/01/2020: Patient was seen for a follow-up. Patient is now opening his eyes, but continues to be severely encephalopathic. Please refer to examination below. Patient is currently on fentanyl 2 g, and Precedex 0.7 mcg/kg infusion. No seizure-like activity has been reported. 09/21/2020: Patient's was also present. Patient is currently on propofol 60 g. Patient underwent complete sedation holiday for 10 minutes. Patient is moving all 4 extremities randomly, but did not follow commands. His eyes were open, and the gaze was straight ahead, but no tracking or making eye contact. He would shake head [id number] randomly. Patient at present is on Levothroid 0.2, dopamine 2.5, dobutamine 3.5. Patient also has developed arrhythmia with atrial fibrillation, PVCs for which he is on amiodarone. Patient on subcu heparin. 09/20/2020: Patient was seen for a follow-up. Patient's father, patient's and his [id number] were present. Nurse was also present. Patient currently on propofol 64 g. He is off fentanyl and Nimbex. According to nurse report, when she performed sedation holiday, patient was moving all 4 extremities randomly, trying to sit up, opened his eyes, but gaze was upwards. He did not follow any directions. He did not make any eye contact or tract with his vision. Patient is still on dobutamine 3.5 g, dopamine 2.5 mcg. 09/19/2020: Patient was seen for a follow-up. Patient's family was also present today. Nurse was also present. Patient continues to be extremely critically sick. Still not able to be able to obtain CAT scan. Patient currently on mult iple pressors including dobutamine 3.5 mcg/kg, dopamine 2.5 mcg/kg, Levophed 40 mcg/m. Patient is also on Nimbex 0.5 mcg/kg, propofol 60 mcg/kg and fentanyl 2 mg/kg. Impella has been removed earlier today. 09/18/2020: Patient was seen for a follow-up. Please refer to Dr. Fadi Johnson note for details. Patient came to the hospital with cardiac arrest. Exact downtime unclear, although some report states 20 minutes. Patient had acute HI, for which he underwent cardiac stenting. At present patient is on sedation with propofol 70 g, which is a high dose. He has a cardiac device, which prevents him from getting computed tomography scan. Per nursing report, when sedation is decreased, he does move all 4 extremities randomly, although not purposefully. He did open his eyes. At present patient is sedated. Objective - Vital Signs Vital signs: Vital Signs Temp 99.4 F 10/03/20 08:00 Pulse 110 H 10/03/20 11:27 Resp 23 10/03/20 10:00 BP 84/56 10/02/20 12:46 Pulse Ox 96 10/03/20 10:00 Intake & Output 10/02/20 10/03/20 10/03/20 18:59 06:59 18:59 Intake Total 6146.602 4676.418 480.173 Output Total 2230 10 Balance -685.344 8793.418 480.173 Weight 156.9 kg Intake: IV 302 276 100 0.9 Normal Saline 72 66 15 Pressure Bag Sodium Chloride 0.9% 1, 130 110 10 000 ml @ 10 mls/hr IV . Q24H [facility] Rx#:[id number] Zosyn 100 100 75 Intake, IV Titration 814.197 518.418 270.173 Amount Dexmedetomidine/0.9% NaCl 200 (Pmx) 400 mcg In Empty Bag 1 bag @ Titrate IV . Q0M [facility] Rx#:[id number] Dexmedetomidine/0.9% NaCl 100.00 200 (Pmx) 400 mcg In Empty Bag 1 bag @ Titrate IV . Q0M [facility] Rx#:[id number] Heparin Sod,Pork in 0.45% 74.333 190.035 NaCl 25,000 unit In 0.45 % NaCl 1 250ml.bag @ 8.13 UNITS/KG/HR 10 mls/hr IV .Q24H COUNTS INCLUDE 234 BEDS AT THE [facility] Rx#:[id number] Norepinephrine 8 mg In 61.385 6.862 0 Sodium Chloride 0.9% 250 ml @ 0.05 MCG/KG/MIN 13. 816 mls/hr IV .[id number] COUNTS INCLUDE 234 BEDS AT THE [facility] Rx#:[id number] fentaNYL (PF) 2,500 mcg 378.479 121.521 270.173 In Sodium Chloride 0.9% 200 ml @ Per Protocol IV .Q0M COUNTS INCLUDE 234 BEDS AT THE [facility] Rx#:[id number] Tube Feeding 150 220 80 Other 60 90 30 Output: Urine 30 10 Hemodialysis 2200 Other: Voiding Method Indwelling Catheter Indwelling Catheter ABP, PAP, CO, CI - Last Documented Arterial Blood Pressure 125/72 - Exam On examination patient is on Precedex 0.6 mcg/kg and he is off fentanyl. Patient appears alert, eyes are open, blinking, and apparently tried to turn his eyes very slightly towards me (to his left side). He is slightly tried to track with his eyes only one time. Did not make much eye contact. When I asked patient if he can wiggle his hands, apparently he nodded "yes", but I did not see any twitch in his hands or any movement. However very inconsistent response. Patient has bilateral pupils are round and reacting. Corneals are present. He does have a gag and cough. Tone is equal bilaterally. Reflexes are 1+ in the upper and 2+ lower limbs and plantars are clearly upgoing bila terally. Patient has at least moderate peripheral edema. He is getting dialysis. - Labs CBC & Chem 7: 10/03/20 03:58 10/03/20 03:58 Labs: Abnormal Lab Results - Last 24 Hours (Table) 10/02/20 10/02/20 10/03/20 Range/Units 18:01 22:00 03:58 WBC (3.8-10.6) k/uL RBC (4.30-5.90) m/uL Hgb (13.0-17.5) gm/dL Hct (39.0-53.0) % Plt Count (150-450) k/uL APTT 30.9 H 37.0 H (22.0-30.0) sec ABG pO2 (83-108) mmHg ABG Total CO2 (19-24) mmol/L ABG O2 Saturation (94-97) % Sodium (137-145) mmol/L Potassium (3.5-5.1) mmol/L BUN (9-20) mg/dL Creatinine (0.66-1.25) mg/dL Glucose (74-99) mg/dL POC Glucose (mg/dL) 114 H (75-99) mg/dL Calcium (8.4-10.2) mg/dL AST (17-59) U/L ALT (4-49) U/L Alkaline Phosphatase (38-126) U/L 10/03/20 10/03/20 10/03/20 Range/Units 03:58 03:58 03:58 WBC 16.1 H (3.8-10.6) k/uL RBC 2.49 L (4.30-5.90) m/uL Hgb 8.1 L (13.0-17.5) gm/dL Hct 24.0 L (39.0-53.0) % Plt Count 581 H (150-450) k/uL APTT (22.0-30.0) sec ABG pO2 (83-108) mmHg ABG Total CO2 (19-24) mmol/L ABG O2 Saturation (94-97) % Sodium 136 L (137-145) mmol/L Potassium 5.3 H (3.5-5.1) mmol/L BUN 87 H (9-20) mg/dL Creatinine 6.05 H (0.66-1.25) mg/dL Glucose 106 H (74-99) mg/dL POC Glucose (mg/dL) (75-99) mg/dL Calcium 7.8 L (8.4-10.2) mg/dL AST 576 H (17-59) U/L ALT 96 H (4-49) U/L Alkaline Phosphatase 223 H (38-126) U/L 10/03/20 10/03/20 10/03/20 Range/Units 04:07 05:53 05:59 WBC (3.8-10.6) k/uL RBC (4.30-5.90) m/uL Hgb (13.0-17.5) gm/dL Hct (39.0-53.0) % Plt Count (150-450) k/uL APTT (22.0-30.0) sec ABG pO2 75 L (83-108) mmHg ABG Total CO2 25 H (19-24) mmol/L ABG O2 Saturation 93.4 L (94-97) % Sodium (137-145) mmol/L Potassium (3.5-5.1) mmol/L BUN (9-20) mg/dL Creatinine (0.66-1.25) mg/dL Glucose (74-99) mg/dL POC Glucose (mg/dL) 115 H 116 H (75-99) mg/dL Calcium (8.4-10.2) mg/dL AST (17-59) U/L ALT (4-49) U/L Alkaline Phosphatase (38-126) U/L Assessment and Plan Assessment: * Status post out of hospital cardiac arrest with prolonged downtime, at least 20 minutes or slightly longer. Patient continues to have significant encephalopathy, probably anoxic encephalopathy with some component of toxic metabolic encephalopathy from acute renal failure and medication effect. * Patient status post trach and PEG placement 10/01/2020. * STEMI s/p PCI to circumflex and status post removal of impella placement * Acute kidney injury, requiring hemodialysis, current BUN 87 and creatinine 6.05. * Severe electrolyte imbalance with hyperkalemia, phosphorus 12.3/4.5, low calcium. * Anemia, hemoglobin 7.8 * Elevated liver function test, AST 396, normal ALT. * Congestive heart failure * Paroxysmal atrial fibrillation, not on anticoagulants. * Cardiomegaly Plan: * Patient's level of consciousness is much improved, appears awake, blinking, but still significantly encephalopathic. Some very minimal tracking movement noticed with the eye, and neck movement. No movements noticed in the arms or legs with command. * Patient had undergone tracheostomy and PEG placement 10/01/2020. * EEG 09/20/2020, which was abnormal due to background slowing of moderate to severe degree. This is slightly more asymmetric involving the right hemisphere as compared to the left. This is suggestive of generalized cerebral dysfunction as can be seen with anoxic or toxic metabolic encephalopathy or from underlying structural abnormality. No epileptiform activity was seen. When compared to the EEG from 09/17/2020, the background appears to have got worse. * CT of the head 09/26/2020 showed no acute process. Evidence of small hypodensity in the left centrum semiovale in the posterior frontal region. This was also present on computed tomography scan from 09/22/2020. * Ammonia level 10. * 2-D echo revealed presence of Impella device. Left ventricle severely dilated. Severe global hypokinesis of the left ventricle, EF is <20%. Cardiology is on board. * Long-term prognosis for meaningful recovery remains very guarded to poor, based upon the extent of deficits present. * Possible transfer to long-term care facility, when medically cleared. * Will defer the rest of the medical management to the IM and other specialties.
[2020-10-03 11:52] LABS: Glucose,Whole Blood 99 mg/dL (75-99)
--- NOTE | 2020-10-03 12:39 | P.PN ---
Subjective Progress Note Date: 10/03/20 Principal diagnosis: Respiratory failure Patient stable on the ventilator. He is having some bloody drainage around the tracheostomy site. There was also some blood when dissection and this morning. Patient is now on both heparin drip and Plavix. Objective - Vital Signs Vital signs: Vital Signs Temp 99.4 F 10/03/20 08:00 Pulse 110 H 10/03/20 11:27 Resp 23 10/03/20 10:00 BP 84/56 10/02/20 12:46 Pulse Ox 96 10/03/20 10:00 Intake & Output 10/02/20 10/03/20 10/03/20 18:59 06:59 18:59 Intake Total 8568.653 1004.418 580.173 Output Total 2230 10 Balance -011.672 3381.418 580.173 Weight 156.9 kg Intake: IV 302 276 100 0.9 Normal Saline 72 66 15 Pressure Bag Sodium Chloride 0.9% 1, 130 110 10 000 ml @ 10 mls/hr IV . Q24H [facility] Rx#:[id number] Zosyn 100 100 75 Intake, IV Titration 814.197 518.418 370.173 Amount Dexmedetomidine/0.9% NaCl 200 (Pmx) 400 mcg In Empty Bag 1 bag @ Titrate IV . Q0M [facility] Rx#:[id number] Dexmedetomidine/0.9% NaCl 100.00 200 100 (Pmx) 400 mcg In Empty Bag 1 bag @ Titrate IV . Q0M [facility] Rx#:[id number] Heparin Sod,Pork in 0.45% 74.333 190.035 NaCl 25,000 unit In 0.45 % NaCl 1 250ml.bag @ 8.13 UNITS/KG/HR 10 mls/hr IV .Q24H [facility] Rx#:[id number] Norepinephrine 8 mg In 61.385 6.862 0 Sodium Chloride 0.9% 250 ml @ 0.05 MCG/KG/MIN 13. 816 mls/hr IV .[id number] [facility] Rx#:[id number] fentaNYL (PF) 2,500 mcg 378.479 121.521 270.173 In Sodium Chloride 0.9% 200 ml @ Per Protocol IV .Q0M [facility] Rx#:[id number] Tube Feeding 150 220 80 Other 60 90 30 Output: Urine 30 10 Hemodialysis 2200 Other: Voiding Method Indwelling Catheter Indwelling Catheter ABP, PAP, CO, CI - Last Documented Arterial Blood Pressure 125/72 - Exam Tracheostomy with small amount of bloody drainage on the dressing, no active bleeding identified, no air leak, no erythema PEG site without evidence of bleeding or infection, mild abdominal distention - Labs CBC & Chem 7: 10/03/20 03:58 10/03/20 03:58 Labs: Abnormal Lab Results - Last 24 Hours (Table) 10/02/20 10/02/20 10/03/20 Range/Units 18:01 22:00 03:58 WBC (3.8-10.6) k/uL RBC (4.30-5.90) m/uL Hgb (13.0-17.5) gm/dL Hct (39.0-53.0) % Plt Count (150-450) k/uL APTT 30.9 H 37.0 H (22.0-30.0) sec ABG pO2 (83-108) mmHg ABG Total CO2 (19-24) mmol/L ABG O2 Saturation (94-97) % Sodium (137-145) mmol/L Potassium (3.5-5.1) mmol/L BUN (9-20) mg/dL Creatinine (0.66-1.25) mg/dL Glucose (74-99) mg/dL POC Glucose (mg/dL) 114 H (75-99) mg/dL Calcium (8.4-10.2) mg/dL AST (17-59) U/L ALT (4-49) U/L Alkaline Phosphatase (38-126) U/L 10/03/20 10/03/20 10/03/20 Range/Units 03:58 03:58 03:58 WBC 16.1 H (3.8-10.6) k/uL RBC 2.49 L (4.30-5.90) m/uL Hgb 8.1 L (13.0-17.5) gm/dL Hct 24.0 L (39.0-53.0) % Plt Count 581 H (150-450) k/uL APTT (22.0-30.0) sec ABG pO2 (83-108) mmHg ABG Total CO2 (19-24) mmol/L ABG O2 Saturation (94-97) % Sodium 136 L (137-145) mmol/L Potassium 5.3 H (3.5-5.1) mmol/L BUN 87 H (9-20) mg/dL Creatinine 6.05 H (0.66-1.25) mg/dL Glucose 106 H (74-99) mg/dL POC Glucose (mg/dL) (75-99) mg/dL Calcium 7.8 L (8.4-10.2) mg/dL AST 576 H (17-59) U/L ALT 96 H (4-49) U/L Alkaline Phosphatase 223 H (38-126) U/L 10/03/20 10/03/20 10/03/20 Range/Units 04:07 05:53 05:59 WBC (3.8-10.6) k/uL RBC (4.30-5.90) m/uL Hgb (13.0-17.5) gm/dL Hct (39.0-53.0) % Plt Count (150-450) k/uL APTT (22.0-30.0) sec ABG pO2 75 L (83-108) mmHg ABG Total CO2 25 H (19-24) mmol/L ABG O2 Saturation 93.4 L (94-97) % Sodium (137-145) mmol/L Potassium (3.5-5.1) mmol/L BUN (9-20) mg/dL Creatinine (0.66-1.25) mg/dL Glucose (74-99) mg/dL POC Glucose (mg/dL) 115 H 116 H (75-99) mg/dL Calcium (8.4-10.2) mg/dL AST (17-59) U/L ALT (4-49) U/L Alkaline Phosphatase (38-126) U/L 10/03/20 Range/Units 11:35 WBC (3.8-10.6) k/uL RBC (4.30-5.90) m/uL Hgb (13.0-17.5) gm/dL Hct (39.0-53.0) % Plt Count (150-450) k/uL APTT 40.5 H (22.0-30.0) sec ABG pO2 (83-108) mmHg ABG Total CO2 (19-24) mmol/L ABG O2 Saturation (94-97) % Sodium (137-145) mmol/L Potassium (3.5-5.1) mmol/L BUN (9-20) mg/dL Creatinine (0.66-1.25) mg/dL Glucose (74-99) mg/dL POC Glucose (mg/dL) (75-99) mg/dL Calcium (8.4-10.2) mg/dL AST (17-59) U/L ALT (4-49) U/L Alkaline Phosphatase (38-126) U/L Assessment and Plan (1) Acute respiratory failure Narrative/Plan: Continue to monitor tracheostomy site. If bleeding persist discontinue heparin. Continue tube feeds. Will follow. Current Visit: Yes Status: Acute Code(s): J96.00 - ACUTE RESPIRATORY FAILURE, UNSP W HYPOXIA OR HYPERCAPNIA SNOMED Code(s): 34466999
--- NOTE | 2020-10-03 12:42 | P.PN ---
Subjective Progress Note Date: 10/03/20 Principal diagnosis: Cardiac arrest and acute hypoxic respiratory failure secondary to cardiac arrest. 59-year-old male patient, post cardiac arrest, V. fib arrest, who is admitted intensive care unit since 09/17/2020 and the patient is being seen in follow-up today on 09/25/2020. The patient is still intubated on a mechanical ventilator. The patient was a V. fib arrest, received CPR on the scene, defibrillated, received epinephrine and was brought into us in his been in the intensive care unit setting. He turned out to be a case of a ST segment elevation myocardial infarction. He received immediate cardiac catheterization and stenting of the circumflex artery. The patient this morning is sedated with propofol running at 60 mcg/kg per minute. Is also on fentanyl 1 mcg/mg/h. He is off pressors. His cardiac rhythm is sinus with a left bundle branch block pattern. Over the past 24 hours, the patient was given dobutamine to augment his cardiac output. He went into atrial fibrillation with RVR. He was given a bolus of amiodarone and he is currently back into normal sinus rhythm. In terms of his vent support, the patient remains on mechanical ventilator. At this point in time, the patient is an assist-control mode at the rate of 28 and a tidal volume of 500 and FiO2 of 50% with a PEEP of 10. The blood gases from today showing a pH of 7.31 with a pCO2 of 35 and pO2 of 122. He is in renal failure. He is receiving dialysis periodically. He received dialysis on 09/20/2020 and 09/21/2020. Dialysis was attempted yesterday, unable to complete as the patient's catheter was kinked and Changes will be done today surgery. He will probably end up hav ing another session of hemodialysis today. When the process of getting the patient sedation holiday in his neurologic function will be reevaluated. CAT scan of the brain another EEG is in progress for today. He is on Levemir insulin for blood sugar control. He is on vital high protein at the rate of 27 mL an hour. No abdominal distention. No nausea or vomiting. No fever or chills. Chest x-ray is showing cardiomegaly with small bilateral pleural effusions on some atelectatic changes in lung bases bilaterally. Orogastric tube is in a good location. He does have small pleural effusions. There is stable cardiomegaly. In terms of his blood work, the white cell count is at 9.2 with a hemoglobin of 9.6. Sodium is at 129, potassium at 5.3, serum bicarbonate is 14 with a BUN of 78 and a creatinine of 9.67. On today's evaluation of 09/26/2020, the patient is being given another sedation holiday. The process yesterday got interrupted as the patient became basically a mechanical ventilator and the patient went into atrial fibrillation with rapid ventricular response. At that point, the patient was placed back on sedation with accommodation propofol and fentanyl and he was kept on the sedation throughout the day. This morning, the plan is to get him off the sedation again and utilizing Precedex if needed. A repeat CAT scan of the brain was ordered for today and the CAT scan showed age-related atrophy and chronic small vessel ischemic changes without any acute intracranial process. No evidence of any acute bleeding. On today's evaluation, the patient is grimacing to deep painful stimulation that was applied to his fingers and toes. For now, the patient is calm and comfortable. He is synchronous with the mechanical ventilator. He is on assist control mode of ventilation, at the rate of 28 and a tidal volume of 500 and FiO2 of 40% with a PEEP of 5. The blood gases from today showed a pH of 7.29 with a pCO2 of 41 and pO2 of 75. This was on FiO2 of 40%. The patient's chest x-ray showed stable findings along with some pulmonary a congestion and scattered infiltrates and interstitial edema. The orotracheal tube was in a good location. NG tube was also in a good location. The patient is currently in normal sinus rhythm. He is on amiodarone drip at 1 mg per minute and based on cardiology recommendation, we'll continue the amiodarone drip at a mainten ance of 1 mg per minute. A minimal amount of urine output. The patient remains in acute kidney injury. Creatinine is up to 7.98. Underwent hemodialysis yesterday. A another session of hemodialysis will be given to him today. He is afebrile. He is receiving enteral feeding for nutritional support. He continues to be on a combination of aspirin and Plavix. He is on no pressors for now. Had a discussion with the . Updated her on his condition. There is a concern of ongoing hypoxic encephalopathy. Meanwhile, the patient remains on Levemir insulin for blood sugar control in addition a slight scale insulin coverage. The patient is receiving vital high protein which is currently at goal. Current cardiac rhythm is sinus with a bundle-branch block pattern. 09/27/2020, I'm seeing the patient for a follow-up. Note that the patient is a case of a cardiac arrest with a STEMI requiring emergent cardiac catheterization and stenting of the circumflex. During the course of his treatment, the patient required insertion and removal of an impeller device. In any rate, there was a concern of the patient was having anoxic encephalopathy. Yesterday, I took him off the fentanyl and the propofol and I switched him to Precedex. As the weaning was being done, the patient was given a sedation holiday and he got to the point where he was awake and following some simple commands. He would open up his eyes. He would move his toes and fingers upon demand. This was also confirmed by neurology. As such, we believe that there is adequate neurologic functions. Nevertheless, as the patient was taken off the sedation, he required more sedation he was placed on Precedex and ultimately were unable to control his restlessness and the patient was having increased tachypnea tachycardia and episodes of atrial fibrillation with rapid ventricular response. He was also desaturating as the patient was becoming asynchronous with a mechanical ventilator. I had to put him back on propofol is currently running at 45 mcg/kg per minute. He stayed on propofol throughout the night. Meanwhile, he remains on assist control mode at a rate of 22 with a tidal volume of 500 and FiO2 of 70% with a PEEP of 10. The blood gases from today showing a pH of 7.35 with a pCO2 of 40 and pO2 of 129. The chest x-ray showing development of a right lower lobe pulmonary infiltrate. ET tube is in a good location. There is a suspicion of a right lower lobe pneumonia. White cell count is up to 15.2. Mild dynamically, he is on no pressors. He is back in normal sinus rhythm. He remains on amiodarone 1 mg per minute per dynamo tender recommendation. He does have a bundle-branch block pattern. A repeat echocardiogram was done today and his EF is still poor, less than 20%. He remains in renal failure. He is requiring daily hemodialysis. Underwent hemodialysis yesterday with ultrafilt ration of 500 mL. He continues to have extensive swelling in the upper and lower extremity and in his scrotum. On today's evaluation, he is also noted to have diminished pulses in lower extremities bilaterally. Doppler significant drop in the right foot. Right foot is cold and an same time there is some skin mottling and cyanosis in his toes mainly on the right. As mentioned, the right foot is cold yet Doppler signals are present. His previously inserted and patella was in the right femoral artery. There is also some rash developing over his upper thighs and abdomen and trunk and shoulders and upper extremities. He is receiving enteral feeding for nutritional support and is currently on vital high protein running at 23 mL an hour. Urine output is 5 mL an hour. 09/28/2020, the patient is being seen for a follow-up. He has been kept on propofol 45 mg/kg/m. We were unable to control his condition off sedation. He went on Precedex and he was still quite restless and agitated and at that point he was switched again to propofol. This morning is much more comfortable. Nevertheless, blood was noted to be lipemic. We're going to check her triglyceride levels and switch this patient back to Precedex. Note that while on Precedex, the patient was able to follow some simple commands. The ultimate plan is to proceed with a pack and a tracheostomy tube insertion and this is scheduled to be done tomorrow. Meanwhile, the patient underwent hemodialysis today. A total of 1.5 L of ultrafiltration was performed. His cardiac rhythm remains atrial fibrillation and amiodarone is running at 1 mg per minute. He remains on a mechanical ventilator on assist control mode with a rate of 22 and tidal volume of 550 FiO2 of 60% with a PEEP of 10. Blood gas showed a pH of 7.37 with a pCO2 of 34 and pO2 of 100. The patient is also receiving enteral feeding for nutritional support with Nepro 20 mL an hour. Urine output is minimal. The patient had some ischemic changes in the lower extremity especially on the right. On today's evaluation, the right foot is warmer compared to yesterday and there are Doppler signals bilaterally. Arterial Dopplers abdominal pain and the results of the pending in the patient is being seen by vascular surgery. He is on no pressors for now. On today's chest x- ray, there is the blood of the right lung consolidation. The patient was prod ucing purulent mucus yesterday. Sputum cultures have been sent. The patient was started on IV Zosyn. Rest or secretions improved since yesterday. White cell count currently is at 14.8 with hemoglobin of 9.4. 09/29/2020, the patient was taken to the operating room for a PEG and trach and the patient was brought back without having the procedure done. Note that the patient was quite stable earlier this morning. He was on Precedex which was running at 0.6 mcg/kg/h. He was able to respond and follows some simple commands. By the time he arrived to the operating room, the patient was placed on the operating room table and he became hypoxic and he developed oxygen desaturation was also stop in the mid 80s. At that point, the procedure was canceled as the patient was transferred back into the intensive care unit. I have an ICU. Currently is on Precedex at 0.7 mcg/kg/h. He was also given Dilaudid 1 mg IV. He is resting comfortably on a mechanical ventilator for now. He is on assist control mode at a rate of 20 with a tidal volume of 600 and FiO2 of 17 with a PEEP of 8. His current pulse ox is 93%. Chest x-ray from today is showing cardiomegaly. There is pulmonary vascular congestion. There is also consolidation of the right lung which we suspected this was related to a n underlying pneumonia. There is also bibasilar infiltrates. No pneumothorax. No pleural effusion. ET tube was in a good location. His sputum productions with orotracheal tube has subsided and the cultures that were collected earlier has not resulted in to have positive growth. The patient remains on IV Zosyn as an empiric antibiotic coverage. He is afebrile for now. As mentioned earlier, he is able to communicate once sedation is off and wheezing. Neurologically the patient is intact. In terms of hemodynamics, current rhythm is sinus. He has a bundle-branch block pattern, left-sided and the patient remains on amiodarone 1 mg per minute. His anticoagulation with IV heparin was held as the patient was being considered for a PEG and trach today. I may restart anticoagulation as long as we have a PTT breathing on this patient. Note that his triglyceride levels was up to 987. He was taken off the propofol. He is supposed to undergo dialysis today. He is able to undergo dialysis without any major issues. His BUN is at 87 with a creatinine of 7.2. His sodium level is at 131 with a potassium level of 5.5. Hemoglobin today is at 8.8 with a white cell count of 13.0. The enteral feeding has been held this morning in preparation for PEG and trach. I'm going to start him back on feeding today which is in the form of Nepro at the rate of 23 mL an hour. 2020, the patient is being seen for a follow-up. The plan is to proceed with a PEG tube a tracheostomy tube insertion tomorrow. The procedure yesterday got complicated as the patient desaturated and operate. This morning, he is on a combination of Precedex and fentanyl drip for sedation. Precedex is running at 0.7 mcg/kg/h and fentanyl is running at 2 mcg/kg/h. He still opens up his eyes. He is partially responsive to painful stimulation and tactile stimulation. Meanwhile, he remains on a mechanical ventilator. He remains on assist control mode at the rate of 20 with a tidal volume of 600 and FiO2 of 50% with a PEEP of 8. Blood gases from this morning show a pH of 7.39 with a pCO2 of 36 and pO2 of 88. No significant orotracheal secretions. Awaiting follow-up chest x-ray from today. Meanwhile, the sputum culture came back negative and the patient was covered empirically with IV Zosyn. He is currently off the amiodarone drip. Cardiac rhythm still in atrial fibrillation which is under better control. He remains also on IV heparin. Note that he goes back and forth between sinus rhythm and atrial fibrillation. His ejection fraction is less than 20%. He is tolerating his enteral feeding for nutritional support. He is afebrile. Potassium today's of 5.7 and this will be treated medically and the patient underwent his hemodialysis yesterday. No dialysis to follow first thing in the morning. BUN is at 84 with a creatinine of 6.4. In regards to his high potassium, he'll be given 10 units of regular insulin along with D50 in addition to 4 bicarb doses of 50 mEq. We'll monitor his potassium level. Patient was reevaluated today on 10/01/2020, remains in the ICU, intubated and mechanically ventilated. Patient is on volume control plus with volume of 600, FiO2 50%, inspiratory time of 0.9 seconds, PEEP at 8, rate is at 20. Vent changes were made today, increase rate to 26 decreased I'll volume to 550 and decreased inspiratory time to 0.80. Patient remains on fentanyl at 2 mcg/kg/h, he is on Precedex at 0.7 mcg/kg/m. He is also on heparin but presently off since the patient is going for tracheostomy and PEG tube placement. He is off norepinephrine. ABG this morning showed a pO2 of 88 pCO2 of 41 pH of 7.34. He is in atrial fibrillation with a rate of 106. Patient is on hemodialysis, received dialysis today and 2 L were off. Last hemodialysis was 09/28 and 1.8 L were taken off. He is empirically on Zosyn which may have to be discontinued, patient had over 11 days of Zosyn. And no clear-cut culture to treat. Chest x- ray showed indwelling tubes and catheters are in place. Scattered perihilar infiltrates and bibasilar infiltrates are the same. Pleural effusion is also unchanged. Potassium today is 5.7. WBC is 4.8 hemoglobin is 7.8. Blood sugar is 87. BUN is 111 creatinine 7.46. Liver enzymes are elevated with ALT of 26 AST of 396 alkaline phosphatase of 232. Patient was reevaluated today on 10/02/2020, remains in the ICU intubated and mechanically ventilated. Patient underwent uneventful tracheostomy and PEG tube placement yesterday. Ventilator settings are assist control rate of 26 tidal volume is 550 he is on volume control plus, FiO2 50% and PEEP is at 8. ABG showed a pO2 of 97 pCO2 of 38 pH of 7.37. Patient remains on Precedex, and 0.7, norepinephrine at 0.02, fentanyl 2 mcg/kg/h, and IV fluid at KVO. Patient is receiving dialysis during my evaluation. He is hemodynamically marginal, requiring norepinephrine. My plan is to cut down on the fentanyl, hopefully that will improve his blood pressure today. Yesterday he had 2 L off after hemodialysis, and so far dialysis seems to be ongoing again today. Neurologically the patient is about the same. He opens eyes but does not follow any instructions, does not follow any commands. He grimaces to painful stimuli. Labs today showed WBC count of 13.4 hemoglobin is 8.1. Potassium is 6.3 and that would be corrected by hemodialysis. Blood sugar is 85. Patient was rest arted back on heparin drip today. It was on hold for his tracheostomy and PEG tube placement. Chest x-ray showed unchanged hazy airspace opacities and but may be a small left pleural effusion Reevaluated today on 10/03/2020, remains in the ICU, intubated and mechanically ventilated. Volume control plus with tidal volume 550, rate of 26 FiO2 50% PEEP at 8 ABG showed a pO2 of 75 pCO2 42 pH of 7.36. Blood pressure is 27. Patient remains on Precedex and on fentanyl which I plan to discontinue today. Patient is also on heparin. Remains clinically about the same, opens eyes, but not following any instructions or any commands. Chest x-ray continues to show some evidence of interstitial edema and fluid overload, patient is receiving hemodialysis during my evaluation. And the plan is to remove 2 L at least. Has been receiving dialysis on a daily basis. He is in atrial fibrillation rate of 112. He is hemodynamically stable, not requiring any pressors at this time. Mentation is basically about the same, and I have not seen any change in the last 3 days. Supposedly his EEG showed metabolic encephalopathy and swallowing patient continues to be followed by neurology regarding his anoxic brain injury. Absent today were all reviewed. PTT is 40.5 WBC count is 16.1 hemoglobin 8.29. Normal renal profile showed a BUN of 87 creatinine 6.05. Liver enzymes remain elevated. His AST is 576 alkaline phosphatase is 223. Objective - Vital Signs Vital signs: Vital Signs Temp 99.4 F 10/03/20 08:00 Pulse 110 H 10/03/20 11:27 Resp 23 10/03/20 10:00 BP 84/56 10/02/20 12:46 Pulse Ox 96 10/03/20 10:00 Intake & Output 10/02/20 10/03/20 10/03/20 18:59 06:59 18:59 Intake Total 2680.862 2253.418 580.173 Output Total 2230 10 Balance -591.854 3800.418 580.173 Weight 156.9 kg Intake: IV 302 276 100 0.9 Normal Saline 72 66 15 Pressure Bag Sodium Chloride 0.9% 1, 130 110 10 000 ml @ 10 mls/hr IV . Q24H [facility]OR[facility] Rx#:[id number] Zosyn 100 100 75 Intake, IV Titration 814.197 518.418 370.173 Amount Dexmedetomidine/0.9% NaCl 200 (Pmx) 400 mcg In Empty Bag 1 bag @ Titrate IV . Q0M [facility]OR[facility] Rx#:[id number] Dexmedetomidine/0.9% NaCl 100.00 200 100 (Pmx) 400 mcg In Empty Bag 1 bag @ Titrate IV . Q0M [facility]OR[facility] Rx#:[id number] Heparin Sod,Pork in 0.45% 74.333 190.035 NaCl 25,000 unit In 0.45 % NaCl 1 250ml.bag @ 8.13 UNITS/KG/HR 10 mls/hr IV .Q24H [facility]OR[facility]NA Rx#:[id number] Norepinephrine 8 mg In 61.385 6.862 0 Sodium Chloride 0.9% 250 ml @ 0.05 MCG/KG/MIN 13. 816 mls/hr IV .[id number] [facility] Rx#:[id number] fentaNYL (PF) 2,500 mcg 378.479 121.521 270.173 In Sodium Chloride 0.9% 200 ml @ Per Protocol IV .Q0M [facility]OR[facility] Rx#:[id number] Tube Feeding 150 220 80 Other 60 90 30 Output: Urine 30 10 Hemodialysis 2200 Other: Voiding Method Indwelling Catheter Indwelling Catheter ABP, PAP, CO, CI - Last Documented Arterial Blood Pressure 125/72 - Exam Physical Exam: Revealed 59-year-old white male intubated and mechanically ventilated, opens eyes does not for any other instructions. Head: Atraumatic, normocephalic. Tracheostomy is intact. HEENT:[Neck is supple.] [No neck masses.] [No thyromegaly.] [No JVD.] The left, EOMI, nonicteric, moist mucous membranes. Chest: [Symmetrical chest expansion, crackles at the bases.] Cardiac Exam: Irregular irregular rhythm, 2/6 systolic murmur thought the precordium. Distant S1 and S2. Abdomen: [Obese, Soft, nontender, no megaly, no rebound, no guarding, negative bowel sounds. Significant scrotal edema is noted. Extremities: [No clubbing, 3+ bipedal edema, no cyanosis.] Good pulses bilaterally. Dialysis catheter is in the left femoral vein. Neurological Exam: Opens eyes, otherwise does not respond to any stimuli. Skin: No rashes. Psychiatric: Could not assess, patient is encephalopathic. - Labs CBC & Chem 7: 10/03/20 03:58 10/03/20 03:58 Labs: Abnormal Lab Results - Last 24 Hours (Table) 10/02/20 10/02/20 10/03/20 Range/Units 18:01 22:00 03:58 WBC (3.8-10.6) k/uL RBC (4.30-5.90) m/uL Hgb (13.0-17.5) gm/dL Hct (39.0-53.0) % Plt Count (150-450) k/uL APTT 30.9 H 37.0 H (22.0-30.0) sec ABG pO2 (83-108) mmHg ABG Total CO2 (19-24) mmol/L ABG O2 Saturation (94-97) % Sodium (137-145) mmol/L Potassium (3.5-5.1) mmol/L BUN (9-20) mg/dL Creatinine (0.66-1.25) mg/dL Glucose (74-99) mg/dL POC Glucose (mg/dL) 114 H (75-99) mg/dL Calcium (8.4-10.2) mg/dL AST (17-59) U/L ALT (4-49) U/L Alkaline Phosphatase (38-126) U/L 10/03/20 10/03/20 10/03/20 Range/Units 03:58 03:58 03:58 WBC 16.1 H (3.8-10.6) k/uL RBC 2.49 L (4.30-5.90) m/uL Hgb 8.1 L (13.0-17.5) gm/dL Hct 24.0 L (39.0-53.0) % Plt Count 581 H (150-450) k/uL APTT (22.0-30.0) sec ABG pO2 (83-108) mmHg ABG Total CO2 (19-24) mmol/L ABG O2 Saturation (94-97) % Sodium 136 L (137-145) mmol/L Potassium 5.3 H (3.5-5.1) mmol/L BUN 87 H (9-20) mg/dL Creatinine 6.05 H (0.66-1.25) mg/dL Glucose 106 H (74-99) mg/dL POC Glucose (mg/dL) (75-99) mg/dL Calcium 7.8 L (8.4-10.2) mg/dL AST 576 H (17-59) U/L ALT 96 H (4-49) U/L Alkaline Phosphatase 223 H (38-126) U/L 10/03/20 10/03/20 10/03/20 Range/Units 04:07 05:53 05:59 WBC (3.8-10.6) k/uL RBC (4.30-5.90) m/uL Hgb (13.0-17.5) gm/dL Hct (39.0-53.0) % Plt Count (150-450) k/uL APTT (22.0-30.0) sec ABG pO2 75 L (83-108) mmHg ABG Total CO2 25 H (19-24) mmol/L ABG O2 Saturation 93.4 L (94-97) % Sodium (137-145) mmol/L Potassium (3.5-5.1) mmol/L BUN (9-20) mg/dL Creatinine (0.66-1.25) mg/dL Glucose (74-99) mg/dL POC Glucose (mg/dL) 115 H 116 H (75-99) mg/dL Calcium (8.4-10.2) mg/dL AST (17-59) U/L ALT (4-49) U/L Alkaline Phosphatase (38-126) U/L 10/03/20 Range/Units 11:35 WBC (3.8-10.6) k/uL RBC (4.30-5.90) m/uL Hgb (13.0-17.5) gm/dL Hct (39.0-53.0) % Plt Count (150-450) k/uL APTT 40.5 H (22.0-30.0) sec ABG pO2 (83-108) mmHg ABG Total CO2 (19-24) mmol/L ABG O2 Saturation (94-97) % Sodium (137-145) mmol/L Potassium (3.5-5.1) mmol/L BUN (9-20) mg/dL Creatinine (0.66-1.25) mg/dL Glucose (74-99) mg/dL POC Glucose (mg/dL) (75-99) mg/dL Calcium (8.4-10.2) mg/dL AST (17-59) U/L ALT (4-49) U/L Alkaline Phosphatase (38-126) U/L Assessment and Plan Assessment: Impression: Acute hypoxic respiratory failure secondary to cardiac arrest. Patient presented with V. fib cardiac arrest. Status post cardiac catheterization and stenting of the circumflex Severe ischemic cardiomyopathy and LV dysfunction. Hypoxic encephalopathy. Suspect anoxic brain injury. Acute kidney injury secondary to acute tubular necrosis and cardiac arrest. Patient is requiring hemodialysis. Shock liver. Paroxysmal atrial fibrillation. Restarted back on heparin today. Hypothyroidism. History of depression. Fluid overload with extensive edema in lower and upper extremities as well as scrotal swelling noted. Related to renal failure and acute kidney injury, george ent is improving with dialysis. Status post tracheostomy and PEG tube placement on 10/01/2020. Recommendation: Continue ventilatory support. No change in ventilator settings done today. Resume nutritional support. Resume heparin as per protocol. Continue enteral feeding/nutritional support. Via PEG tube today. hemodynamic support if needed. Continue hemodialysis. Continue GI and DVT prophylaxis. Patient remains critically ill. Prognosis remains extremely poor and guarded, and quality of life is expected to be very poor. We will continue to follow. Critical care time is over 30 minutes. Time with Patient: Greater than 30
--- NOTE | 2020-10-03 15:43 | P.PN ---
Subjective Progress Note Date: 10/03/20 Patient was seen, evaluated, and examined by me today. Patient was on Precedex. His eyes were open but he was not able to follow simple commands. I asked him to blink or open his mouth he would not follow. Nursing staff informed me that patient did not have a bowel movement in the last 3-4 days. He is otherwise hemodynamically stable. He is still on full support on the vent. No acute events overnight reported to me by nursing staff. Objective - Vital Signs Vital signs: Vital Signs Temp 99.4 F 10/03/20 12:58 Pulse 133 H 10/03/20 14:00 Resp 31 H 10/03/20 14:00 BP 124/77 10/03/20 12:58 Pulse Ox 95 10/03/20 14:00 Intake & Output 10/02/20 10/03/20 10/03/20 18:59 06:59 18:59 Intake Total 8254.413 0262.418 1061.757 Output Total 2230 10 3000 Balance -714.919 7376.418 -1938.243 Weight 156.9 kg 156.9 kg Intake: IV 302 276 228 0.9 Normal Saline 72 66 48 Pressure Bag Sodium Chloride 0.9% 1, 130 110 80 000 ml @ 10 mls/hr IV . Q24H [facility] Rx#:[id number] Zosyn 100 100 100 Intake, IV Titration 814.197 518.418 613.757 Amount Dexmedetomidine/0.9% NaCl 200 (Pmx) 400 mcg In Empty Bag 1 bag @ Titrate IV . Q0M [facility] Rx#:[id number] Dexmedetomidine/0.9% NaCl 100.00 200 141.379 (Pmx) 400 mcg In Empty Bag 1 bag @ Titrate IV . Q0M [facility] Rx#:[id number] Heparin Sod,Pork in 0.45% 74.333 190.035 202.205 NaCl 25,000 unit In 0.45 % NaCl 1 250ml.bag @ 8.13 UNITS/KG/HR 10 mls/hr IV .Q24H [facility] Rx#:[id number] Norepinephrine 8 mg In 61.385 6.862 0 Sodium Chloride 0.9% 250 ml @ 0.05 MCG/KG/MIN 13. 816 mls/hr IV .[id number] [facility] Rx#:[id number] fentaNYL (PF) 2,500 mcg 378.479 121.521 270.173 In Sodium Chloride 0.9% 200 ml @ Per Protocol IV .Q0M [facility] Rx#:[id number] Tube Feeding 150 220 160 Other 60 90 60 Output: Urine 30 10 Hemodialysis 2200 3000 Other: Voiding Method Indwelling Catheter Indwelling Catheter Indwelling Catheter ABP, PAP, CO, CI - Last Documented Arterial Blood Pressure 148/81 - Exam General: The patient eyes are open but he is not following any commands Eye: there is normal conjunctiva bilaterally. Neck: Tracheostomy in place. Cardiovascular: Normal S1-S2, no S3-S4, no murmurs. Respiratory: Lungs with mechanical ventilator sounds Gastrointestinal: Abdomen is distended but soft, nontender. PEG tube in place Musculoskeletal: There is evidence of anasarca up to the abdomen. Skin: Skin is warm and dry - Labs CBC & Chem 7: 10/03/20 03:58 10/03/20 03:58 Labs: Abnormal Lab Results - Last 24 Hours (Table) 10/02/20 10/02/20 10/03/20 Range/Units 18:01 22:00 03:58 WBC (3.8-10.6) k/uL RBC (4.30-5.90) m/uL Hgb (13.0-17.5) gm/dL Hct (39.0-53.0) % Plt Count (150-450) k/uL APTT 30.9 H 37.0 H (22.0-30.0) sec ABG pO2 (83-108) mmHg ABG Total CO2 (19-24) mmol/L ABG O2 Saturation (94-97) % Sodium (137-145) mmol/L Potassium (3.5-5.1) mmol/L BUN (9-20) mg/dL Creatinine (0.66-1.25) mg/dL Glucose (74-99) mg/dL POC Glucose (mg/dL) 114 H (75-99) mg/dL Calcium (8.4-10.2) mg/dL AST (17-59) U/L ALT (4-49) U/L Alkaline Phosphatase (38-126) U/L 10/03/20 10/03/20 10/03/20 Range/Units 03:58 03:58 03:58 WBC 16.1 H (3.8-10.6) k/uL RBC 2.49 L (4.30-5.90) m/uL Hgb 8.1 L (13.0-17.5) gm/dL Hct 24.0 L (39.0-53.0) % Plt Count 581 H (150-450) k/uL APTT (22.0-30.0) sec ABG pO2 (83-108) mmHg ABG Total CO2 (19-24) mmol/L ABG O2 Saturation (94-97) % Sodium 136 L (137-145) mmol/L Potassium 5.3 H (3.5-5.1) mmol/L BUN 87 H (9-20) mg/dL Creatinine 6.05 H (0.66-1.25) mg/dL Glucose 106 H (74-99) mg/dL POC Glucose (mg/dL) (75-99) mg/dL Calcium 7.8 L (8.4-10.2) mg/dL AST 576 H (17-59) U/L ALT 96 H (4-49) U/L Alkaline Phosphatase 223 H (38-126) U/L 10/03/20 10/03/20 10/03/20 Range/Units 04:07 05:53 05:59 WBC (3.8-10.6) k/uL RBC (4.30-5.90) m/uL Hgb (13.0-17.5) gm/dL Hct (39.0-53.0) % Plt Count (150-450) k/uL APTT (22.0-30.0) sec ABG pO2 75 L (83-108) mmHg ABG Total CO2 25 H (19-24) mmol/L ABG O2 Saturation 93.4 L (94-97) % Sodium (137-145) mmol/L Potassium (3.5-5.1) mmol/L BUN (9-20) mg/dL Creatinine (0.66-1.25) mg/dL Glucose (74-99) mg/dL POC Glucose (mg/dL) 115 H 116 H (75-99) mg/dL Calcium (8.4-10.2) mg/dL AST (17-59) U/L ALT (4-49) U/L Alkaline Phosphatase (38-126) U/L 10/03/20 Range/Units 11:35 WBC (3.8-10.6) k/uL RBC (4.30-5.90) m/uL Hgb (13.0-17.5) gm/dL Hct (39.0-53.0) % Plt Count (150-450) k/uL APTT 40.5 H (22.0-30.0) sec ABG pO2 (83-108) mmHg ABG Total CO2 (19-24) mmol/L ABG O2 Saturation (94-97) % Sodium (137-145) mmol/L Potassium (3.5-5.1) mmol/L BUN (9-20) mg/dL Creatinine (0.66-1.25) mg/dL Glucose (74-99) mg/dL POC Glucose (mg/dL) (75-99) mg/dL Calcium (8.4-10.2) mg/dL AST (17-59) U/L ALT (4-49) U/L Alkaline Phosphatase (38-126) U/L Assessment and Plan Assessment: Patient is a 59-year-old male with a history of hypertension, hypothyroidism, and obesity who presented to the ER after cardiac arrest in the field. He had mu ltiple rounds of CPR, Epi, and Defib prior to obtaining ROSC. It appears that his down time in the field was approximately 30 minutes on review of the EMS run sheet. He was intubated and sedated he underwent a left heart cath with stent to the LAD and impella placement. Echocardiogram demonstrated an EF of less than 20% with global hypokenesis. He was determined to be in cardiogenic shock requiring dopamine, dobutamine, and levophed. He has required a Nimbex drip to maintain adequate ventilation until 09/20/20. He demonstrated shock liver on arrival. He has also had progressive anuric renal failure, nephrology was consulted HD was initiated on 09/21/20. He had one abnormal EEG with worsening of EEG on 09/20/20. We have been unable to wean sedation due to agitation and there are concerns for severe anoxic encephalopathy. His CXR was worsening and procalcitonin was elevated and he was started on zosyn with concerns for possible underlying PNA. He had not been awake or following commands with sedation holidays. Below is the list list of his medical problems addressed during this hospita lization V. fib arrest due to ST segment elevated myocardial infarction status post PCI to the circumflex and impella placement Acute systolic congestive heart failure Ischemic cardiomyopathy with ejection fraction less than 20% Cardiogenic shock Cold and mottled right foot - dopamine off 09/23/20, dobutamine, levophed off by 09/22/20 - cardio following closely - ASA, Plavix, lipitor, and amiodarone -Status post trach and PEG placement on 10/02 Paroxysmal atrial fibrillation: On anticoagulation with heparin. Cardiology following closely Hypoxic/Anoxic encephalopathy: Some point, patient was able to follow simple commands but today he is not following any commands. - neuro recs - Patient is on Precedex - CT head with no acute findings Acute kidney injury secondary to hypoperfusion and likely ATN requiring hemodialysis Hyperphosphatemia Hyperkalemia - nephrology following closely -PhosLo 4 times a day, dose has been increased over this admission with minimal improvement in his phosphorus level - Avoid nephrotoxic agents Acute hypoxic respiratory failure Pneumonia possible gram negative, completed treatment - Finished a course of IV Zosyn - pulm recs following closely Anemia - Thrombocytopenia - follow CBC - no indication for transfusion at this point in time. Generalized Dermatitis, improved with IV steroids Morbid obesity with BMI 37.7 Shock liver, resolved Poor overall prognosis. DVT prophylaxis: heparin Discussed with: nursing Discharge planning to LTAC pending clinical condition A total of 35 minutes was spent on the care of this complex patient more than 5 0% of the time was spent in counseling and care coordination.
[2020-10-03 17:43] LABS: Glucose,Whole Blood 115 mg/dL (75-99)
[2020-10-03 19:10] LABS: HGB 8.4 gm/dL (13.0-17.5); MCH 32.4 pg (25.0-35.0); MCHC 33.6 g/dL (31.0-37.0); MCV 96.5 fL (80.0-100.0); Mean Platelet Volume 8.2; Platelet Count 633 k/uL (150-450); RBC 2.59 m/uL (4.30-5.90); RDW 14.2 % (11.5-15.5); WBC 19.5 k/uL (3.8-10.6)
[2020-10-03] MEDS: polyethylene glycoL 3350 17 GM POWD.PACK PO SCH (20:39)
[2020-10-03 20:46] LABS: Glucose,Whole Blood 124 mg/dL (75-99)
[2020-10-03] MEDS ORDERED: ACETAMINOPHEN IV (For NPO) 1,000 MG in EMPTY BAG 1 BAG IVPB PRN (21:47)
[2020-10-04] MEDS: DEXMEDETOMIDINE/0.9% NACL(PMX) 400 MCG in EMPTY BAG 1 BAG IV SCH (01:14)
[2020-10-04] MEDS: IPRATROPIUM-ALBUTEROL 3 ML NEB INHALATION SCH ×6 (02:59→23:09)
[2020-10-04] MEDS: NOREPINEPHRINE 8 MG in SODIUM CHLORIDE 0.9% 250 ML IV SCH ×2 (03:15→21:33)
[2020-10-04 03:41] LABS: Glucose,Whole Blood 115 mg/dL (75-99)
[2020-10-04 03:48] LABS: Basophils # (A) 0.1 k/uL (0-0.2); Basophils % (A) 0 %; Eosinophils # (A) 0.2 k/uL (0-0.7); Eosinophils % (A) 2 %; HCT 23.3 % (39.0-53.0); HGB 7.7 gm/dL (13.0-17.5); Lymphocytes # (A) 0.7 k/uL (1.0-4.8); Lymphocytes % (A) 5 %; MCH 32.1 pg (25.0-35.0); MCHC 33.2 g/dL (31.0-37.0); MCV 96.5 fL (80.0-100.0); Mean Platelet Volume 9.4; Monocytes # (A) 0.4 k/uL (0-1.0); Monocytes % (A) 3 %; Neutrophils # (A) 12.7 k/uL (1.3-7.7); Neutrophils % (A) 89 %; Platelet Count 545 k/uL (150-450); RBC 2.42 m/uL (4.30-5.90); RDW 14.5 % (11.5-15.5); WBC 14.3 k/uL (3.8-10.6)
[2020-10-04 03:57] LABS: Calcium 7.9 mg/dL (8.4-10.2); Potassium 4.6 mmol/L (3.5-5.1)
[2020-10-04 05:44] LABS: ABG Base Excess -1.5 mmol/L; ABG HCO3 23 mmol/L (21-25); ABG Oxygen Saturation 94.4 % (94-97); ABG PCO2 37 mmHg (35-45); ABG PO2 77 mmHg (83-108); ABG TCO2 24 mmol/L (19-24)
[2020-10-04 05:51] LABS: Allen Test Performed? no
[2020-10-04] MEDS: LEVOTHYROXINE 50 MCG TAB PO SCH (07:06)
[2020-10-04] MEDS: SODIUM CHLORIDE 0.9% 500 ML IV SCH (07:52)
[2020-10-04] MEDS: ASPIRIN 81 MG PO SCH (08:06)
[2020-10-04] MEDS: SODIUM BICARBONATE TAB 650 MG TAB PO SCH ×2 (08:06→21:26)
[2020-10-04] MEDS: CLOPIDOGREL 75 MG TAB PO SCH (08:07)
[2020-10-04] MEDS: AMIODARONE 200 MG TAB PO SCH ×2 (08:07→21:26)
[2020-10-04] MEDS: CALCIUM ACETATE 667 MG TAB PO SCH ×4 (08:07→21:26)
[2020-10-04] MEDS: PANTOPRAZOLE 40 MG/10 ML VIAL IVP SCH (08:15)
--- NOTE | 2020-10-04 08:33 | XR ---
EXAMINATION TYPE: XR chest 1V portable DATE OF EXAM: 10/04/2020 COMPARISON: 10/03/2020 INDICATION: Tracheostomy, ventilated, difficulty breathing TECHNIQUE: Single frontal view of the chest is obtained. FINDINGS: The heart size is enlarged. The pulmonary vasculature is normal. Left pleural effusion is present. Double-lumen catheter is on the right with the tips in the distal s uperior vena cava region. Tracheostomy tube is in the midline. Left central venous catheter is presen t with tip in superior vena cava region. PICC line enters on the left with tip in superior vena cava region. IMPRESSION: 1. Left pleural fluid. 2. Lines and catheters discussed above
[2020-10-04] MEDS: ACETAMINOPHEN TAB 325 MG TAB PO PRN (10:20)
--- NOTE | 2020-10-04 10:46 | P.PN ---
Subjective This is a 59-year-old male with a past medical history significant for hypertension, hypothyroidism. 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 Patient admitted on 09/17/2020, apparently had a cardiac arrest at home. provided CPR. When EMS arrived the patient was found to be in V. fib. Patient received defibrillation 3 and epi 2. Downtime is unclear. Patient was found to have ST elevation on his EKG and was taken to the microbiology lab assistant upon arrival to the hospital with Dr. Antoine Patient underwent PCI to the circumflex with impella placement. Echocardiogram revealed LF systolic function is severely impaired with an EF <20%, severe global hypokinesis. Patient's course also complicated by new onset atrial fibrillation and acute renal failure started on dialysis. Patient was started on Amiodarone drip on 09/21/20, now transitioned to PO amiodarone. 09/26- CT Brain negative for acute intracranial process. 09/27- LE dopplers completed awaiting read. 09/29- patient was scheduled for Trach and PEG tube placement, however, the patient became hypoxic and developed desaturations, procedure was canceled and rescheduled 10/01. Apparently patient did follow some simple commands 09/22 in the morning with at bedside. 10/01/2020: In ICU. Patient underwent Trach and PEG tube placement. He underwent dialysis with 2.3L removed. He is currently being maintained on amiodarone 400 mg twice a day, aspirin 81 mg daily, Plavix and 5 mg daily, IV heparin, Fentanyl drip, Precedex drip. Levophed is on hold. 10/04/2020 Patient seen in the ICU. He remains intubated on mechanical ventilation. He is currently being maintained on amiodarone 400 mg twice a day, aspirin 81 mg daily, Plavix 75 mg daily, Patient on Precedex drip at 0.1mcg/kg/hr and currently weaning. Levophed is off. IV Fentanyl is off. IV heparin has been stopped due to patient having increased bleeding from his tracheostomy. Telemetry reviewed, patient continues to be in atrial fibrillation HR are increase 100-120s wide QRS. He appears to be more alert this morning. Opening up his eyes able look at the person speaking and coughing once on command with respiratory. He underwent Dialysis with 3L off. Laboratory data reviewed WBC 14.3 hemoglobin 7.7, platelets 545, sodium 137, potassium 4.3, BUN 77, creatinine 5.45 PHYSICAL EXAM: VITAL SIGNS: BP 128/74 HR 100-120s, Temp 99.4 GENERAL: In no acute distress-sedated on mechanical ventilation NECK: Supple. No JVD LUNGS: Respirations even and unlabored. Lungs diminished with bilateral crackles at bases. HEART: Irregular tachycardic rate and rhythm. S1 and S2 heard. Systolic murmur noted EXTREMITIES: No clubbing or cyanosis. NEURO: Awake, open eyes moving eyes towards the caller, able to cough ASSESSMENT: STEMI, s/p PCI to circumflex and impella placement V-fib arrest Hypertension - hypotensive while inpatient Dyslipidemia Ischemic cardiomyopathy EF <20% Cardiogenic Shock Acute Hypoxic Respiratory Failure requiring intubation on a mechanical v entilator Acute Renal Failure- requiring hemodialysis - Nephrology following Paroxysmal atrial fibrillation Anemia s/p PEG and Tracheostomy placement 10/01/20 PLAN: -We will continue current medical therapy with dual antiplatelet therapy aspirin and Plavix, amiodarone 400mg BID (Drip started 09/21, PO started 09/29/20). -Heparin drip on hold due to increased bleeding from tracheostomy tube. -Patient unable to tolerate beta rhonda and MARY/ARB due to hypotension. Will continue to monitor patient off sedation -Statin has been on hold due to elevated LFTs -Pulmonary following, appreciate recs -Nephrology following for dialysis, appreciate recs -Further recommendations based on clinical course Nurse practitioner note has been reviewed by physician. Signing provider agrees with the documented findings, assessment, and plan of care. Objective - Vital Signs Vital signs: Vital Signs Temp 99.4 F 10/03/20 12:58 Pulse 108 H 10/03/20 13:00 Resp 30 H 10/03/20 13:00 BP 124/77 10/03/20 12:58 Pulse Ox 94 L 10/03/20 13:00 Intake & Output 10/02/20 10/03/20 10/03/20 18:59 06:59 18:59 Intake Total 8261.385 6592.418 984.587 Output Total 2230 10 3000 Balance -437.952 0553.418 -2015.413 Weight 156.9 kg Intake: IV 302 276 212 0.9 Normal Saline 72 66 42 Pressure Bag Sodium Chloride 0.9% 1, 130 110 70 000 ml @ 10 mls/hr IV . Q24H [facility] Rx#:[id number] Zosyn 100 100 100 Intake, IV Titration 814.197 518.418 572.587 Amount Dexmedetomidine/0.9% NaCl 200 (Pmx) 400 mcg In Empty Bag 1 bag @ Titrate IV . Q0M [facility] Rx#:[id number] Dexmedetomidine/0.9% NaCl 100.00 200 141.379 (Pmx) 400 mcg In Empty Bag 1 bag @ Titrate IV . Q0M [facility] Rx#:[id number] Heparin Sod,Pork in 0.45% 74.333 190.035 161.035 NaCl 25,000 unit In 0.45 % NaCl 1 250ml.bag @ 8.13 UNITS/KG/HR 10 mls/hr IV .Q24H [facility] Rx#:[id number] Norepinephrine 8 mg In 61.385 6.862 0 Sodium Chloride 0.9% 250 ml @ 0.05 MCG/KG/MIN 13. 816 mls/hr IV .[id number] [facility] Rx#:[id number] fentaNYL (PF) 2,500 mcg 378.479 121.521 270.173 In Sodium Chloride 0.9% 200 ml @ Per Protocol IV .Q0M [facility] Rx#:[id number] Tube Feeding 150 220 140 Other 60 90 60 Output: Urine 30 10 Hemodialysis 2200 3000 Other: Voiding Method Indwelling Catheter Indwelling Catheter ABP, PAP, CO, CI - Last Documented Arterial Blood Pressure 107/69 - Labs CBC & Chem 7: 10/04/20 03:41 10/04/20 03:41 Labs: Abnormal Lab Results - Last 24 Hours (Table) 10/02/20 10/02/20 10/03/20 Range/Units 18:01 22:00 03:58 WBC (3.8-10.6) k/uL RBC (4.30-5.90) m/uL Hgb (13.0-17.5) gm/dL Hct (39.0-53.0) % Plt Count (150-450) k/uL APTT 30.9 H 37.0 H (22.0-30.0) sec ABG pO2 (83-108) mmHg ABG Total CO2 (19-24) mmol/L ABG O2 Saturation (94-97) % Sodium (137-145) mmol/L Potassium (3.5-5.1) mmol/L BUN (9-20) mg/dL Creatinine (0.66-1.25) mg/dL Glucose (74-99) mg/dL POC Glucose (mg/dL) 114 H (75-99) mg/dL Calcium (8.4-10.2) mg/dL AST (17-59) U/L ALT (4-49) U/L Alkaline Phosphatase (38-126) U/L 10/03/20 10/03/20 10/03/20 Range/Units 03:58 03:58 03:58 WBC 16.1 H (3.8-10.6) k/uL RBC 2.49 L (4.30-5.90) m/uL Hgb 8.1 L (13.0-17.5) gm/dL Hct 24.0 L (39.0-53.0) % Plt Count 581 H (150-450) k/uL APTT (22.0-30.0) sec ABG pO2 (83-108) mmHg ABG Total CO2 (19-24) mmol/L ABG O2 Saturation (94-97) % Sodium 136 L (137-145) mmol/L Potassium 5.3 H (3.5-5.1) mmol/L BUN 87 H (9-20) mg/dL Creatinine 6.05 H (0.66-1.25) mg/dL Glucose 106 H (74-99) mg/dL POC Glucose (mg/dL) (75-99) mg/dL Calcium 7.8 L (8.4-10.2) mg/dL AST 576 H (17-59) U/L ALT 96 H (4-49) U/L Alkaline Phosphatase 223 H (38-126) U/L 10/03/20 10/03/20 10/03/20 Range/Units 04:07 05:53 05:59 WBC (3.8-10.6) k/uL RBC (4.30-5.90) m/uL Hgb (13.0-17.5) gm/dL Hct (39.0-53.0) % Plt Count (150-450) k/uL APTT (22.0-30.0) sec ABG pO2 75 L (83-108) mmHg ABG Total CO2 25 H (19-24) mmol/L ABG O2 Saturation 93.4 L (94-97) % Sodium (137-145) mmol/L Potassium (3.5-5.1) mmol/L BUN (9-20) mg/dL Creatinine (0.66-1.25) mg/dL Glucose (74-99) mg/dL POC Glucose (mg/dL) 115 H 116 H (75-99) mg/dL Calcium (8.4-10.2) mg/dL AST (17-59) U/L ALT (4-49) U/L Alkaline Phosphatase (38-126) U/L 10/03/20 Range/Units 11:35 WBC (3.8-10.6) k/uL RBC (4.30-5.90) m/uL Hgb (13.0-17.5) gm/dL Hct (39.0-53.0) % Plt Count (150-450) k/uL APTT 40.5 H (22.0-30.0) sec ABG pO2 (83-108) mmHg ABG Total CO2 (19-24) mmol/L ABG O2 Saturation (94-97) % Sodium (137-145) mmol/L Potassium (3.5-5.1) mmol/L BUN (9-20) mg/dL Creatinine (0.66-1.25) mg/dL Glucose (74-99) mg/dL POC Glucose (mg/dL) (75-99) mg/dL Calcium (8.4-10.2) mg/dL AST (17-59) U/L ALT (4-49) U/L Alkaline Phosphatase (38-126) U/L
--- NOTE | 2020-10-04 11:24 | P.PN ---
Subjective Progress Note Date: 10/04/20 Principal diagnosis: Cardiac arrest and acute hypoxic respiratory failure secondary to cardiac arrest. 59-year-old male patient, post cardiac arrest, V. fib arrest, who is admitted intensive care unit since 09/17/2020 and the patient is being seen in follow-up today on 09/25/2020. The patient is still intubated on a mechanical ventilator. The patient was a V. fib arrest, received CPR on the scene, defibrillated, received epinephrine and was brought into us in his been in the intensive care unit setting. He turned out to be a case of a ST segment elevation myocardial infarction. He received immediate cardiac catheterization and stenting of the circumflex artery. The patient this morning is sedated with propofol running at 60 mcg/kg per minute. Is also on fentanyl 1 mcg/mg/h. He is off pressors. His cardiac rhythm is sinus with a left bundle branch block pattern. Over the past 24 hours, the patient was given dobutamine to augment his cardiac output. He went into atrial fibrillation with RVR. He was given a bolus of amiodarone and he is currently back into normal sinus rhythm. In terms of his vent support, the patient remains on mechanical ventilator. At this point in time, the patient is an assist-control mode at the rate of 28 and a tidal volume of 500 and FiO2 of 50% with a PEEP of 10. The blood gases from today showing a pH of 7.31 with a pCO2 of 35 and pO2 of 122. He is in renal failure. He is receiving dialysis periodically. He received dialysis on 09/20/2020 and 09/21/2020. Dialysis was attempted yesterday, unable to complete as the patient's catheter was kinked and Changes will be done today surgery. He will probably end up hav ing another session of hemodialysis today. When the process of getting the patient sedation holiday in his neurologic function will be reevaluated. CAT scan of the brain another EEG is in progress for today. He is on Levemir insulin for blood sugar control. He is on vital high protein at the rate of 27 mL an hour. No abdominal distention. No nausea or vomiting. No fever or chills. Chest x-ray is showing cardiomegaly with small bilateral pleural effusions on some atelectatic changes in lung bases bilaterally. Orogastric tube is in a good location. He does have small pleural effusions. There is stable cardiomegaly. In terms of his blood work, the white cell count is at 9.2 with a hemoglobin of 9.6. Sodium is at 129, potassium at 5.3, serum bicarbonate is 14 with a BUN of 78 and a creatinine of 9.67. On today's evaluation of 09/26/2020, the patient is being given another sedation holiday. The process yesterday got interrupted as the patient became basically a mechanical ventilator and the patient went into atrial fibrillation with rapid ventricular response. At that point, the patient was placed back on sedation with accommodation propofol and fentanyl and he was kept on the sedation throughout the day. This morning, the plan is to get him off the sedation again and utilizing Precedex if needed. A repeat CAT scan of the brain was ordered for today and the CAT scan showed age-related atrophy and chronic small vessel ischemic changes without any acute intracranial process. No evidence of any acute bleeding. On today's evaluation, the patient is grimacing to deep painful stimulation that was applied to his fingers and toes. For now, the patient is calm and comfortable. He is synchronous with the mechanical ventilator. He is on assist control mode of ventilation, at the rate of 28 and a tidal volume of 500 and FiO2 of 40% with a PEEP of 5. The blood gases from today showed a pH of 7.29 with a pCO2 of 41 and pO2 of 75. This was on FiO2 of 40%. The patient's chest x-ray showed stable findings along with some pulmonary a congestion and scattered infiltrates and interstitial edema. The orotracheal tube was in a good location. NG tube was also in a good location. The patient is currently in normal sinus rhythm. He is on amiodarone drip at 1 mg per minute and based on cardiology recommendation, we'll continue the amiodarone drip at a mainten ance of 1 mg per minute. A minimal amount of urine output. The patient remains in acute kidney injury. Creatinine is up to 7.98. Underwent hemodialysis yesterday. A another session of hemodialysis will be given to him today. He is afebrile. He is receiving enteral feeding for nutritional support. He continues to be on a combination of aspirin and Plavix. He is on no pressors for now. Had a discussion with the . Updated her on his condition. There is a concern of ongoing hypoxic encephalopathy. Meanwhile, the patient remains on Levemir insulin for blood sugar control in addition a slight scale insulin coverage. The patient is receiving vital high protein which is currently at goal. Current cardiac rhythm is sinus with a bundle-branch block pattern. 09/27/2020, I'm seeing the patient for a follow-up. Note that the patient is a case of a cardiac arrest with a STEMI requiring emergent cardiac catheterization and stenting of the circumflex. During the course of his treatment, the patient required insertion and removal of an impeller device. In any rate, there was a concern of the patient was having anoxic encephalopathy. Yesterday, I took him off the fentanyl and the propofol and I switched him to Precedex. As the weaning was being done, the patient was given a sedation holiday and he got to the point where he was awake and following some simple commands. He would open up his eyes. He would move his toes and fingers upon demand. This was also confirmed by neurology. As such, we believe that there is adequate neurologic functions. Nevertheless, as the patient was taken off the sedation, he required more sedation he was placed on Precedex and ultimately were unable to control his restlessness and the patient was having increased tachypnea tachycardia and episodes of atrial fibrillation with rapid ventricular response. He was also desaturating as the patient was becoming asynchronous with a mechanical ventilator. I had to put him back on propofol is currently running at 45 mcg/kg per minute. He stayed on propofol throughout the night. Meanwhile, he remains on assist control mode at a rate of 22 with a tidal volume of 500 and FiO2 of 70% with a PEEP of 10. The blood gases from today showing a pH of 7.35 with a pCO2 of 40 and pO2 of 129. The chest x-ray showing development of a right lower lobe pulmonary infiltrate. ET tube is in a good location. There is a suspicion of a right lower lobe pneumonia. White cell count is up to 15.2. Mild dynamically, he is on no pressors. He is back in normal sinus rhythm. He remains on amiodarone 1 mg per minute per agricultural technical officer recommendation. He does have a bundle-branch block pattern. A repeat echocardiogram was done today and his EF is still poor, less than 20%. He remains in renal failure. He is requiring daily hemodialysis. Underwent hemodialysis yesterday with ultrafilt ration of 500 mL. He continues to have extensive swelling in the upper and lower extremity and in his scrotum. On today's evaluation, he is also noted to have diminished pulses in lower extremities bilaterally. Doppler significant drop in the right foot. Right foot is cold and an same time there is some skin mottling and cyanosis in his toes mainly on the right. As mentioned, the right foot is cold yet Doppler signals are present. His previously inserted and patella was in the right femoral artery. There is also some rash developing over his upper thighs and abdomen and trunk and shoulders and upper extremities. He is receiving enteral feeding for nutritional support and is currently on vital high protein running at 23 mL an hour. Urine output is 5 mL an hour. 09/28/2020, the patient is being seen for a follow-up. He has been kept on propofol 45 mg/kg/m. We were unable to control his condition off sedation. He went on Precedex and he was still quite restless and agitated and at that point he was switched again to propofol. This morning is much more comfortable. Nevertheless, blood was noted to be lipemic. We're going to check her triglyceride levels and switch this patient back to Precedex. Note that while on Precedex, the patient was able to follow some simple commands. The ultimate plan is to proceed with a pack and a tracheostomy tube insertion and this is scheduled to be done tomorrow. Meanwhile, the patient underwent hemodialysis today. A total of 1.5 L of ultrafiltration was performed. His cardiac rhythm remains atrial fibrillation and amiodarone is running at 1 mg per minute. He remains on a mechanical ventilator on assist control mode with a rate of 22 and tidal volume of 550 FiO2 of 60% with a PEEP of 10. Blood gas showed a pH of 7.37 with a pCO2 of 34 and pO2 of 100. The patient is also receiving enteral feeding for nutritional support with Nepro 20 mL an hour. Urine output is minimal. The patient had some ischemic changes in the lower extremity especially on the right. On today's evaluation, the right foot is warmer compared to yesterday and there are Doppler signals bilaterally. Arterial Dopplers abdominal pain and the results of the pending in the patient is being seen by vascular surgery. He is on no pressors for now. On today's chest x- ray, there is the blood of the right lung consolidation. The patient was prod ucing purulent mucus yesterday. Sputum cultures have been sent. The patient was started on IV Zosyn. Rest or secretions improved since yesterday. White cell count currently is at 14.8 with hemoglobin of 9.4. 09/29/2020, the patient was taken to the operating room for a PEG and trach and the patient was brought back without having the procedure done. Note that the patient was quite stable earlier this morning. He was on Precedex which was running at 0.6 mcg/kg/h. He was able to respond and follows some simple commands. By the time he arrived to the operating room, the patient was placed on the operating room table and he became hypoxic and he developed oxygen desaturation was also stop in the mid 80s. At that point, the procedure was canceled as the patient was transferred back into the intensive care unit. I have an ICU. Currently is on Precedex at 0.7 mcg/kg/h. He was also given Dilaudid 1 mg IV. He is resting comfortably on a mechanical ventilator for now. He is on assist control mode at a rate of 20 with a tidal volume of 600 and FiO2 of 17 with a PEEP of 8. His current pulse ox is 93%. Chest x-ray from today is showing cardiomegaly. There is pulmonary vascular congestion. There is also consolidation of the right lung which we suspected this was related to a n underlying pneumonia. There is also bibasilar infiltrates. No pneumothorax. No pleural effusion. ET tube was in a good location. His sputum productions with orotracheal tube has subsided and the cultures that were collected earlier has not resulted in to have positive growth. The patient remains on IV Zosyn as an empiric antibiotic coverage. He is afebrile for now. As mentioned earlier, he is able to communicate once sedation is off and wheezing. Neurologically the patient is intact. In terms of hemodynamics, current rhythm is sinus. He has a bundle-branch block pattern, left-sided and the patient remains on amiodarone 1 mg per minute. His anticoagulation with IV heparin was held as the patient was being considered for a PEG and trach today. I may restart anticoagulation as long as we have a PTT breathing on this patient. Note that his triglyceride levels was up to 987. He was taken off the propofol. He is supposed to undergo dialysis today. He is able to undergo dialysis without any major issues. His BUN is at 87 with a creatinine of 7.2. His sodium level is at 131 with a potassium level of 5.5. Hemoglobin today is at 8.8 with a white cell count of 13.0. The enteral feeding has been held this morning in preparation for PEG and trach. I'm going to start him back on feeding today which is in the form of Nepro at the rate of 23 mL an hour. 2020, the patient is being seen for a follow-up. The plan is to proceed with a PEG tube a tracheostomy tube insertion tomorrow. The procedure yesterday got complicated as the patient desaturated and operate. This morning, he is on a combination of Precedex and fentanyl drip for sedation. Precedex is running at 0.7 mcg/kg/h and fentanyl is running at 2 mcg/kg/h. He still opens up his eyes. He is partially responsive to painful stimulation and tactile stimulation. Meanwhile, he remains on a mechanical ventilator. He remains on assist control mode at the rate of 20 with a tidal volume of 600 and FiO2 of 50% with a PEEP of 8. Blood gases from this morning show a pH of 7.39 with a pCO2 of 36 and pO2 of 88. No significant orotracheal secretions. Awaiting follow-up chest x-ray from today. Meanwhile, the sputum culture came back negative and the patient was covered empirically with IV Zosyn. He is currently off the amiodarone drip. Cardiac rhythm still in atrial fibrillation which is under better control. He remains also on IV heparin. Note that he goes back and forth between sinus rhythm and atrial fibrillation. His ejection fraction is less than 20%. He is tolerating his enteral feeding for nutritional support. He is afebrile. Potassium today's of 5.7 and this will be treated medically and the patient underwent his hemodialysis yesterday. No dialysis to follow first thing in the morning. BUN is at 84 with a creatinine of 6.4. In regards to his high potassium, he'll be given 10 units of regular insulin along with D50 in addition to 4 bicarb doses of 50 mEq. We'll monitor his potassium level. Patient was reevaluated today on 10/01/2020, remains in the ICU, intubated and mechanically ventilated. Patient is on volume control plus with volume of 600, FiO2 50%, inspiratory time of 0.9 seconds, PEEP at 8, rate is at 20. Vent changes were made today, increase rate to 26 decreased I'll volume to 550 and decreased inspiratory time to 0.80. Patient remains on fentanyl at 2 mcg/kg/h, he is on Precedex at 0.7 mcg/kg/m. He is also on heparin but presently off since the patient is going for tracheostomy and PEG tube placement. He is off norepinephrine. ABG this morning showed a pO2 of 88 pCO2 of 41 pH of 7.34. He is in atrial fibrillation with a rate of 106. Patient is on hemodialysis, received dialysis today and 2 L were off. Last hemodialysis was 09/28 and 1.8 L were taken off. He is empirically on Zosyn which may have to be discontinued, patient had over 11 days of Zosyn. And no clear-cut culture to treat. Chest x- ray showed indwelling tubes and catheters are in place. Scattered perihilar infiltrates and bibasilar infiltrates are the same. Pleural effusion is also unchanged. Potassium today is 5.7. WBC is 4.8 hemoglobin is 7.8. Blood sugar is 87. BUN is 111 creatinine 7.46. Liver enzymes are elevated with ALT of 26 AST of 396 alkaline phosphatase of 232. Patient was reevaluated today on 10/02/2020, remains in the ICU intubated and mechanically ventilated. Patient underwent uneventful tracheostomy and PEG tube placement yesterday. Ventilator settings are assist control rate of 26 tidal volume is 550 he is on volume control plus, FiO2 50% and PEEP is at 8. ABG showed a pO2 of 97 pCO2 of 38 pH of 7.37. Patient remains on Precedex, and 0.7, norepinephrine at 0.02, fentanyl 2 mcg/kg/h, and IV fluid at KVO. Patient is receiving dialysis during my evaluation. He is hemodynamically marginal, requiring norepinephrine. My plan is to cut down on the fentanyl, hopefully that will improve his blood pressure today. Yesterday he had 2 L off after hemodialysis, and so far dialysis seems to be ongoing again today. Neurologically the patient is about the same. He opens eyes but does not follow any instructions, does not follow any commands. He grimaces to painful stimuli. Labs today showed WBC count of 13.4 hemoglobin is 8.1. Potassium is 6.3 and that would be corrected by hemodialysis. Blood sugar is 85. Patient was rest arted back on heparin drip today. It was on hold for his tracheostomy and PEG tube placement. Chest x-ray showed unchanged hazy airspace opacities and but may be a small left pleural effusion Reevaluated today on 10/03/2020, remains in the ICU, intubated and mechanically ventilated. Volume control plus with tidal volume 550, rate of 26 FiO2 50% PEEP at 8 ABG showed a pO2 of 75 pCO2 42 pH of 7.36. Blood pressure is 27. Patient remains on Precedex and on fentanyl which I plan to discontinue today. Patient is also on heparin. Remains clinically about the same, opens eyes, but not following any instructions or any commands. Chest x-ray continues to show some evidence of interstitial edema and fluid overload, patient is receiving hemodialysis during my evaluation. And the plan is to remove 2 L at least. Has been receiving dialysis on a daily basis. He is in atrial fibrillation rate of 112. He is hemodynamically stable, not requiring any pressors at this time. Mentation is basically about the same, and I have not seen any change in the last 3 days. Supposedly his EEG showed metabolic encephalopathy and swallowing patient continues to be followed by neurology regarding his anoxic brain injury. Absent today were all reviewed. PTT is 40.5 WBC count is 16.1 hemoglobin 8.29. Normal renal profile showed a BUN of 87 creatinine 6.05. Liver enzymes remain elevated. His AST is 576 alkaline phosphatase is 223. Reevaluated today on 10/04/20, remains in the ICU, intubated and mechanically ventilated. He is on assist control rate of 26, volume control +550 FiO2 50% and PEEP of 8. ABG showed a pO2 of 77 pCO2 of 37 pH of 7.40. Patient is off all narcotics and sedatives, he is also off Precedex. And today he is actually making some neurological improvement. Patient is able to follow simple instructions like squeezing hands, sticking out tongue, closing eyes, he seems to be comprehending what he is being controlled. But he is generally weak. This is the best I have seen him in the last 4 days. Patient will remain off narcotics and sedatives for today. His ventilator settings remained the same unchanged. Chest x-ray continues to show similar changes as before with some component of fluid overload, patient is still receiving dialysis. He is off antibiotics at present. Remains on tube feeding using the Nepro. I started him today on subcu heparin, he was on IV heparin yesterday, however he developed bleeding around the tracheostomy site. Hence heparin was placed on hold but today I'm placing him on subcu heparin. Patient is also on Plavix. Remains in atrial fibrillation. Patient will be undergoing hemodialysis again, and hopefully will remove another 3 L of fluid removed as removed yesterday. WBC count is 14.3 hemoglobin is 7.7. Electrolytes are normal renal profile is abnormal patient is on hemodialysis Objective - Vital Signs Vital signs: Vital Signs Temp 99.4 F 10/04/20 08:00 Pulse 123 H 10/04/20 10:00 Resp 30 H 10/04/20 10:00 BP 106/55 10/04/20 03:15 Pulse Ox 98 10/04/20 10:00 Intake & Output 10/03/20 10/04/20 10/04/20 18:59 06:59 18:59 Intake Total 1275.757 920.262 313.070 Output Total 3000 30 Balance -1724.243 890.262 313.070 Weight 156.9 kg 153.9 kg Intake: IV 292 192 64 0.9 Normal Saline 72 72 24 Pressure Bag Sodium Chloride 0.9% 1, 120 120 40 000 ml @ 10 mls/hr IV . Q24H [facility] Rx#:[id number] Zosyn 100 Intake, IV Titration 613.757 127.262 15.070 Amount Dexmedetomidine/0.9% NaCl 141.379 113.861 15.070 (Pmx) 400 mcg In Empty Bag 1 bag @ Titrate IV . Q0M JOR[facility] Rx#:[id number] Heparin Sod,Pork in 0.45% 202.205 NaCl 25,000 unit In 0.45 % NaCl 1 250ml.bag @ 8.13 UNITS/KG/HR 10 mls/hr IV .Q24H [facility]ORDANA Rx#:[id number] Norepinephrine 8 mg In 0 Sodium Chloride 0.9% 250 ml @ 0.05 MCG/KG/MIN 13. 816 mls/hr IV .[id number] [facility] Rx#:[id number] Norepinephrine 8 mg In 13.401 Sodium Chloride 0.9% 250 ml @ 0.05 MCG/KG/MIN 14. 89 mls/hr IV .[id number] [facility] Rx#:[id number] fentaNYL (PF) 2,500 mcg 270.173 In Sodium Chloride 0.9% 200 ml @ Per Protocol IV .Q0M [facility]OR[facility] Rx#:[id number] Tube Feeding 280 511 204 Other 90 90 30 Output: Urine 30 Hemodialysis 3000 Other: Voiding Method Indwelling Catheter Indwelling Catheter Indwelling Catheter ABP, PAP, CO, CI - Last Documented Arterial Blood Pressure 139/80 - Exam Physical Exam: Revealed 59-year-old white male intubated and mechanically ventilated, follows simple instructions today, Head: Atraumatic, normocephalic. Tracheostomy is intact. No active bleeding noted today. HEENT:[Neck is supple.] [No neck masses.] [No thyromegaly.] [No JVD.] The left, EOMI, nonicteric, moist mucous membranes. Chest: [Symmetrical chest expansion, crackles at the bases.] No rhonchi no wheezes. Cardiac Exam: Irregular irregular rhythm, 2/6 systolic murmur thought the precordium. Distant S1 and S2. Abdomen: [Obese, Soft, nontender, no megaly, no rebound, no guarding, negative bowel sounds. Significant scrotal edema is noted. Unchanged. Extremities: [No clubbing, 3+ bipedal edema, no cyanosis.] Diminished distal pulses bilaterally.. Dialysis catheter is in the left femoral vein. Neurological Exam: Opens eyes, squeezing hands, sticks out tongue when told to do so, close his eyes when told to do so. Generally weak. Skin: No rashes. Psychiatric: Depressed mood, flat affect, could not fully assess mental status except the patient follows simple instructions as noted above. - Labs CBC & Chem 7: 10/04/20 03:41 10/04/20 03:41 Labs: Abnormal Lab Results - Last 24 Hours (Table) 10/03/20 10/03/20 10/03/20 Range/Units 11:35 17:41 19:00 WBC 19.5 H (3.8-10.6) k/uL RBC 2.59 L (4.30-5.90) m/uL Hgb 8.4 L (13.0-17.5) gm/dL Hct 25.0 L (39.0-53.0) % Plt Count 633 H (150-450) k/uL Neutrophils # (1.3-7.7) k/uL Lymphocytes # (1.0-4.8) k/uL APTT 40.5 H (22.0-30.0) sec ABG pO2 (83-108) mmHg BUN (9-20) mg/dL Creatinine (0.66-1.25) mg/dL Glucose (74-99) mg/dL POC Glucose (mg/dL) 115 H (75-99) mg/dL Calcium (8.4-10.2) mg/dL 10/03/20 10/04/20 10/04/20 Range/Units 20:44 03:38 03:41 WBC 14.3 H (3.8-10.6) k/uL RBC 2.42 L (4.30-5.90) m/uL Hgb 7.7 L (13.0-17.5) gm/dL Hct 23.3 L (39.0-53.0) % Plt Count 545 H (150-450) k/uL Neutrophils # 12.7 H (1.3-7.7) k/uL Lymphocytes # 0.7 L (1.0-4.8) k/uL APTT (22.0-30.0) sec ABG pO2 (83-108) mmHg BUN (9-20) mg/dL Creatinine (0.66-1.25) mg/dL Glucose (74-99) mg/dL POC Glucose (mg/dL) 124 H 115 H (75-99) mg/dL Calcium (8.4-10.2) mg/dL 10/04/20 10/04/20 Range/Units 03:41 05:42 WBC (3.8-10.6) k/uL RBC (4.30-5.90) m/uL Hgb (13.0-17.5) gm/dL Hct (39.0-53.0) % Plt Count (150-450) k/uL Neutrophils # (1.3-7.7) k/uL Lymphocytes # (1.0-4.8) k/uL APTT (22.0-30.0) sec ABG pO2 77 L (83-108) mmHg BUN 77 H (9-20) mg/dL Creatinine 5.45 H (0.66-1.25) mg/dL Glucose 114 H (74-99) mg/dL POC Glucose (mg/dL) (75-99) mg/dL Calcium 7.9 L (8.4-10.2) mg/dL Assessment and Plan Assessment: Impression: Acute hypoxic respiratory failure secondary to cardiac arrest. Patient presented with V. fib cardiac arrest. Status post cardiac catheterization and stenting of the circumflex Severe ischemic cardiomyopathy and LV dysfunction. Hypoxic encephalopathy. Suspect anoxic brain injury. Slight improvement noted today in his mental status Acute kidney injury secondary to acute tubular necrosis and cardiac arrest. Patient is requiring hemodialysis. Shock liver. Paroxysmal atrial fibrillation. Restarted back on heparin today. Hypothyroidism. History of depression. Fluid overload with extensive edema in lower and upper extremities as well as scrotal swelling noted. Related to renal failure and acute kidney injury, patient is improving with dialysis. Status post tracheostomy and PEG tube placement on 10/01/2020. Recommendation: Continue ventilatory support. No change in ventilator settings done today. Continue nutritional support. Patient is on enteral feeding. Subcu heparin 5000 units subcu every 8 hours. Continue hemodialysis. Continue GI and DVT prophylaxis. Patient remains critically ill. Prognosis remains extremely poor and guarded, and quality of life is expected to be very poor. Slightl neurological improvement noted today for the first time. Critical care time is over 30 minutes. We'll continue to follow, Time with Patient: Greater than 30
[2020-10-04 11:38] LABS: Glucose,Whole Blood 130 mg/dL (75-99)
--- NOTE | 2020-10-04 11:48 | PN ---
PROGRESS NOTE Patient is seen for followup for acute kidney injury. Patient remains in the ICU. He is he is status post trach and PEG this morning. However, he is awake and following commands. This is a significant improvement over the last couple of days. The patient is seen on dialysis, tolerating his treatment well. He is being dialyzed on a daily basis mostly for volume overload and hyperkalemia and hypercatabolic state. He continues to be oliguric with no significant urine output. PHYSICAL EXAMINATION: On examination today, blood pressure was 139/80, heart rate 120 per minute. He is afebrile. Examination of the heart S1, S2. Examination of the lungs, bilateral breath sounds are heard. Abdomen is soft, nontender. Examination of lower extremities shows edema 2+ bilaterally with significant scrotal edema. INSTRUMENTATION ENGINEERING TECHNICIAN exam shows patient is following commands. LAB: Show sodium 137, potassium 4.6, chloride 103, BUN 77, serum creatinine 5.45, hemoglobin 7.7 g/dL. ASSESSMENT: 1. Acute kidney injury, acute tubular necrosis, currently oliguric and maintained on daily dialysis. 2. Severe volume overload, receiving daily dialysis. We are planning for about 3 L again today. 3. Acute hypoxic respiratory failure. 4. Status post cardiac arrest. 5. Coronary artery disease status post cardiac catheterization and coronary stent placement. 6. Cardiomyopathy, ejection fraction 20-25%. PLAN: Repeat hemodialysis in a.m., maintained UF of about 3-3.5 L as tolerated. Continue to avoid nephrotoxic medications and monitor for recovery of renal function although it may take some time. MMODL / IJN: [id number] /
--- NOTE | 2020-10-04 13:20 | P.PN ---
Subjective Progress Note Date: 10/04/20 10/04/2020: patient's was also present today. Patient today is much improved. Patient is fully alert and awake. Patient is making eye contact, tracking with his eyes. He is moving his head [id number] towards the examiner. Patient is off sedation. Please refer to examination below. 10/03/2020: Patient is essentially unchanged. Patient is currently off fentanyl since 8:30 to 9 AM. He is still on Precedex 0.6 g. Patient is awake, with minimal response as mentioned in examination. Patient is getting hemodialysis. 10/02/2020: Patient had undergone tracheostomy and PEG placement yesterday. Patient is on fentanyl 1.5 and Precedex 0.6 g infusion. Patient is very awake, eyes open, blinking regularly. Patient apparently appears to be slightly slightly trying to turn his gaze towards the caller. However it was not consistent. One time he grimaced with nailbed pressure. Did not follow any directions, did not wiggle his feet or toes. 10/01/2020: Patient was seen for a follow-up. Patient is now opening his eyes, but continues to be severely encephalopathic. Please refer to examination below. Patient is currently on fentanyl 2 g, and Precedex 0.7 mcg/kg infusion. No seizure-like activity has been reported. 09/21/2020: Patient's was also present. Patient is currently on propofol 60 g. Patient underwent complete sedation holiday for 10 minutes. Patient is moving all 4 extremities randomly, but did not follow commands. His eyes were open, and the gaze was straight ahead, but no tracking or making eye contact. He would shake head [id number] randomly. Patient at present is on Levothroid 0.2, dopamine 2.5, dobutamine 3.5. Patient also has developed arrhythmia with atrial fibrillation, PVCs for which he is on amiodarone. Patient on subcu heparin. 09/20/2020: Patient was seen for a follow-up. Patient's father, patient's and his [id number] were present. Nurse was also present. Patient currently on propofol 64 g. He is off fentanyl and Nimbex. According to nurse report, when she performed sedation holiday, patient was moving all 4 extremities randomly, trying to sit up, opened his eyes, but gaze was upwards. He did not follow any directions. He did not make any eye contact or tract with his vision. Patient is still on dobutamine 3.5 g, dopamine 2.5 mcg. 09/19/2020: Patient was seen for a follow-up. Patient's family was also present today. Nurse was also present. Patient continues to be extremely critically sick. Still not able to be able to obtain CAT scan. Patient currently on multiple pressors including dobutamine 3.5 mcg/kg, dopamine 2.5 mcg/kg, Levophed 40 mcg/m. Patient is also on Nimbex 0.5 mcg/kg, propofol 60 mcg/kg and fentanyl 2 mg/kg. Impella has been removed earlier today. 09/18/2020: Patient was seen for a follow-up. Please refer to Dr. Fadi Johnson note for details. Patient came to the hospital with cardiac arrest. Exact downtime unclear, although some report states 20 minutes. Patient had acute VT, for which he underwent cardiac stenting. At present patient is on sedation with propofol 70 g, which is a high dose. He has a cardiac device, which prevents him from getting computed tomography scan. Per nursing report, when sedation is decreased, he does move all 4 extremities randomly, although not purposefully. He did open his eyes. At present patient is sedated. Objective - Vital Signs Vital signs: Vital Signs Temp 98.8 F 10/04/20 12:00 Pulse 124 H 10/04/20 12:00 Resp 26 H 10/04/20 12:00 BP 116/96 10/04/20 12:00 Pulse Ox 96 10/04/20 12:00 Intake & Output 10/03/20 10/04/20 10/04/20 18:59 06:59 18:59 Intake Total 1275.757 920.262 451.070 Output Total 3000 30 Balance -1724.243 890.262 451.070 Weight 156.9 kg 153.9 kg Intake: IV 292 192 70 0.9 Normal Saline 72 72 30 Pressure Bag Sodium Chloride 0.9% 1, 120 120 40 000 ml @ 10 mls/hr IV . Q24H [facility] Rx#:[id number] Zosyn 100 Intake, IV Titration 613.757 127.262 15.070 Amount Dexmedetomidine/0.9% NaCl 141.379 113.861 15.070 (Pmx) 400 mcg In Empty Bag 1 bag @ Titrate IV . Q0M [facility] Rx#:[id number] Heparin Sod,Pork in 0.45% 202.205 NaCl 25,000 unit In 0.45 % NaCl 1 250ml.bag @ 8.13 UNITS/KG/HR 10 mls/hr IV .Q24H [facility] Rx#:[id number] Norepinephrine 8 mg In 0 Sodium Chloride 0.9% 250 ml @ 0.05 MCG/KG/MIN 13. 816 mls/hr IV .[id number] [facility] Rx#:[id number] Norepinephrine 8 mg In 13.401 Sodium Chloride 0.9% 250 ml @ 0.05 MCG/KG/MIN 14. 89 mls/hr IV .[id number] [facility] Rx#:[id number] fentaNYL (PF) 2,500 mcg 270.173 In Sodium Chloride 0.9% 200 ml @ Per Protocol IV .Q0M [facility] Rx#:[id number] Tube Feeding 280 511 306 Other 90 90 60 Output: Urine 30 Hemodialysis 3000 Other: Voiding Method Indwelling Catheter Indwelling Catheter Indwelling Catheter ABP, PAP, CO, CI - Last Documented Arterial Blood Pressure 113/66 - Exam Patient is fully alert and awake. Patient is making eye contact, tracking with his eyes. He is moving his head [id number] towards the examiner. Patient is off sedation. patient able to move his hands, make a redipper at least 4 on the left and 3+ on the right. Patient not able to wiggle his feet. Patient's states that he gave her a kiss. reflexes are still brisk, plantars upgoing. - Labs CBC & Chem 7: 10/04/20 03:41 10/04/20 03:41 Labs: Abnormal Lab Results - Last 24 Hours (Table) 10/03/20 10/03/20 10/03/20 Range/Units 17:41 19:00 20:44 WBC 19.5 H (3.8-10.6) k/uL RBC 2.59 L (4.30-5.90) m/uL Hgb 8.4 L (13.0-17.5) gm/dL Hct 25.0 L (39.0-53.0) % Plt Count 633 H (150-450) k/uL Neutrophils # (1.3-7.7) k/uL Lymphocytes # (1.0-4.8) k/uL ABG pO2 (83-108) mmHg BUN (9-20) mg/dL Creatinine (0.66-1.25) mg/dL Glucose (74-99) mg/dL POC Glucose (mg/dL) 115 H 124 H (75-99) mg/dL Calcium (8.4-10.2) mg/dL 10/04/20 10/04/20 10/04/20 Range/Units 03:38 03:41 03:41 WBC 14.3 H (3.8-10.6) k/uL RBC 2.42 L (4.30-5.90) m/uL Hgb 7.7 L (13.0-17.5) gm/dL Hct 23.3 L (39.0-53.0) % Plt Count 545 H (150-450) k/uL Neutrophils # 12.7 H (1.3-7.7) k/uL Lymphocytes # 0.7 L (1.0-4.8) k/uL ABG pO2 (83-108) mmHg BUN 77 H (9-20) mg/dL Creatinine 5.45 H (0.66-1.25) mg/dL Glucose 114 H (74-99) mg/dL POC Glucose (mg/dL) 115 H (75-99) mg/dL Calcium 7.9 L (8.4-10.2) mg/dL 10/04/20 10/04/20 Range/Units 05:42 11:36 WBC (3.8-10.6) k/uL RBC (4.30-5.90) m/uL Hgb (13.0-17.5) gm/dL Hct (39.0-53.0) % Plt Count (150-450) k/uL Neutrophils # (1.3-7.7) k/uL Lymphocytes # (1.0-4.8) k/uL ABG pO2 77 L (83-108) mmHg BUN (9-20) mg/dL Creatinine (0.66-1.25) mg/dL Glucose (74-99) mg/dL POC Glucose (mg/dL) 130 H (75-99) mg/dL Calcium (8.4-10.2) mg/dL Assessment and Plan Assessment: * Status post out of hospital cardiac arrest with prolonged downtime, at least 20 minutes or slightly longer. Patient continues to have significant encephalopathy, probably anoxic encephalopathy with some component of toxic metabolic encephalopathy from acute renal failure and medication effect. Patient's mentation has much improved today. Able to follow commands, making redipper with both hands. * Patient status post trach and PEG placement 10/01/2020. * STEMI s/p PCI to circumflex and status post removal of impella placement * Acute kidney injury, requiring hemodialysis, current BUN 77 and creatinine 5.45. * Severe electrolyte imbalance with hyperkalemia, phosphorus 12.3/4.5, low ca lcium. * Anemia, hemoglobin 7.8 * Elevated liver function test, AST 396, normal ALT. * Congestive heart failure * Paroxysmal atrial fibrillation, not on anticoagulants. * Cardiomegaly Plan: * Patient's level of consciousness has remarkably improved. Patient is following commands. He was moving his hands on commands. Still no movement of his feet. Continue stay off sedation. * Patient had undergone tracheostomy and PEG placement 10/01/2020. * EEG 09/20/2020, which was abnormal due to background slowing of moderate to severe degree. This is slightly more asymmetric involving the right hemisphere as compared to the left. This is suggestive of generalized cerebral dysfunction as can be seen with anoxic or toxic metabolic encephalopathy or from underlying structural abnormality. No epileptiform activity was seen. When compared to the EEG from 09/17/2020, the background appears to have got worse. * CT of the head 09/26/2020 showed no acute process. Evidence of small hypodensity in the left centrum semiovale in the posterior frontal region. This was also present on computed tomography scan from 09/22/2020. * Ammonia level 10. * 2-D echo revealed presence of Impella device. Left ventricle severely dilated. Severe global hypokinesis of the left ventricle, EF is <20%. Cardiology is on board. * Long-term prognosis for meaningful recovery remains very guarded, based upon the extent of deficits present. * Possible transfer to long-term care facility, when medically cleared. * Will defer the rest of the medical management to the IM and other specialties.
--- NOTE | 2020-10-04 13:50 | P.PN ---
Subjective Patient was seen and evaluated this morning his was at bedside. Patient was taken off of breath This morning and he is currently awake and alert. He was able to respond to me and follow simple commands such as blinking, closing his eyes tightly, and squeezing my finger only in the left hand. He is turning her head side to side. Objective - Vital Signs Vital signs: Vital Signs Temp 98.8 F 10/04/20 12:00 Pulse 124 H 10/04/20 12:00 Resp 26 H 10/04/20 12:00 BP 116/96 10/04/20 12:00 Pulse Ox 96 10/04/20 12:00 Intake & Output 10/03/20 10/04/20 10/04/20 18:59 06:59 18:59 Intake Total 1275.757 889.394 4705.070 Output Total 3000 30 Balance -1724.243 988.403 1829.070 Weight 156.9 kg 153.9 kg Intake: IV 292 192 70 0.9 Normal Saline 72 72 30 Pressure Bag Sodium Chloride 0.9% 1, 120 120 40 000 ml @ 10 mls/hr IV . Q24H [facility] Rx#:[id number] Zosyn 100 Intake, IV Titration 613.757 127.262 15.070 Amount Dexmedetomidine/0.9% NaCl 141.379 113.861 15.070 (Pmx) 400 mcg In Empty Bag 1 bag @ Titrate IV . Q0M [facility] Rx#:[id number] Heparin Sod,Pork in 0.45% 202.205 NaCl 25,000 unit In 0.45 % NaCl 1 250ml.bag @ 8.13 UNITS/KG/HR 10 mls/hr IV .Q24H [facility] Rx#:[id number] Norepinephrine 8 mg In 0 Sodium Chloride 0.9% 250 ml @ 0.05 MCG/KG/MIN 13. 816 mls/hr IV .[id number] [facility] Rx#:[id number] Norepinephrine 8 mg In 13.401 Sodium Chloride 0.9% 250 ml @ 0.05 MCG/KG/MIN 14. 89 mls/hr IV .[id number] [facility] Rx#:[id number] fentaNYL (PF) 2,500 mcg 270.173 In Sodium Chloride 0.9% 200 ml @ Per Protocol IV .Q0M [facility] Rx#:[id number] Tube Feeding 280 511 306 Hemodialysis 3000 Other 90 90 60 Output: Urine 30 Hemodialysis 3000 Other: Voiding Method Indwelling Catheter Indwelling Catheter Indwelling Catheter ABP, PAP, CO, CI - Last Documented Arterial Blood Pressure 113/66 - Exam General: The patient awake and following simple commands Eye: there is normal conjunctiva bilaterally. Neck: Tracheostomy in place. Cardiovascular: Normal S1-S2, no S3-S4, no murmurs. Respiratory: Lungs with mechanical ventilator sounds Gastrointestinal: Abdomen is distended but soft, nontender. PEG tube in place Musculoskeletal: There is evidence of anasarca up to the abdomen. Skin: Skin is warm and dry - Labs CBC & Chem 7: 10/04/20 03:41 10/04/20 03:41 Labs: Abnormal Lab Results - Last 24 Hours (Table) 10/03/20 10/03/20 10/03/20 Range/Units 17:41 19:00 20:44 WBC 19.5 H (3.8-10.6) k/uL RBC 2.59 L (4.30-5.90) m/uL Hgb 8.4 L (13.0-17.5) gm/dL Hct 25.0 L (39.0-53.0) % Plt Count 633 H (150-450) k/uL Neutrophils # (1.3-7.7) k/uL Lymphocytes # (1.0-4.8) k/uL ABG pO2 (83-108) mmHg BUN (9-20) mg/dL Creatinine (0.66-1.25) mg/dL Glucose (74-99) mg/dL POC Glucose (mg/dL) 115 H 124 H (75-99) mg/dL Calcium (8.4-10.2) mg/dL 10/04/20 10/04/20 10/04/20 Range/Units 03:38 03:41 03:41 WBC 14.3 H (3.8-10.6) k/uL RBC 2.42 L (4.30-5.90) m/uL Hgb 7.7 L (13.0-17.5) gm/dL Hct 23.3 L (39.0-53.0) % Plt Count 545 H (150-450) k/uL Neutrophils # 12.7 H (1.3-7.7) k/uL Lymphocytes # 0.7 L (1.0-4.8) k/uL ABG pO2 (83-108) mmHg BUN 77 H (9-20) mg/dL Creatinine 5.45 H (0.66-1.25) mg/dL Glucose 114 H (74-99) mg/dL POC Glucose (mg/dL) 115 H (75-99) mg/dL Calcium 7.9 L (8.4-10.2) mg/dL 10/04/20 10/04/20 Range/Units 05:42 11:36 WBC (3.8-10.6) k/uL RBC (4.30-5.90) m/uL Hgb (13.0-17.5) gm/dL Hct (39.0-53.0) % Plt Count (150-450) k/uL Neutrophils # (1.3-7.7) k/uL Lymphocytes # (1.0-4.8) k/uL ABG pO2 77 L (83-108) mmHg BUN (9-20) mg/dL Creatinine (0.66-1.25) mg/dL Glucose (74-99) mg/dL POC Glucose (mg/dL) 130 H (75-99) mg/dL Calcium (8.4-10.2) mg/dL Assessment and Plan Assessment: Patient is a 59-year-old male with a history of hypertension, hypothyroidism, and obesity who presented to the ER after cardiac arrest in the field. He had multiple rounds of CPR, Epi, and Defib prior to obtaining ROSC. It appears that his down time in the field was approximately 30 minutes on review of the EMS run sheet. He was intubated and sedated and admitted to the ICU for further management of his medical problems noted below V. fib arrest due to ST segment elevated myocardial infarction status post PCI to the circumflex and impella placement Acute systolic congestive heart failure Ischemic cardiomyopathy with ejection fraction less than 20% Cardiogenic shock - s/p left heart cath with stent to the LAD and impella placement. Echoc ardiogram demonstrated an EF of less than 20% with global hypokenesis. - Required multiple pressors during this hospital stay being off of pressors for several days now - cardio following closely - ASA, Plavix, lipitor, and amiodarone -Status post trach and PEG placement on 10/02 Paroxysmal atrial fibrillation: On anticoagulation with heparin. Cardiology following closely Hypoxic/Anoxic encephalopathy: Improved. Patient is now awake and able to follow simple, - neuro recs - CT head with no acute findings Acute kidney injury secondary to hypoperfusion and likely ATN requiring hemodialysis Hyperphosphatemia Hyperkalemia - nephrology following closely -PhosLo 4 times a day, dose has been increased over this admission with minimal improvement in his phosphorus level - Avoid nephrotoxic agents Acute hypoxic respiratory failure Pneumonia possible gram negative, completed treatment - Finished a course of IV Zosyn - pulm recs following closely Anemia Poor overall prognosis. DVT prophylaxis: heparin Discussed with: nursing Discharge planning to LTAC pending clinical condition A total of 35 minutes was spent on the care of this complex patient more than 50% of the time was spent in counseling and care coordination.
--- NOTE | 2020-10-04 14:40 | P.PN ---
Subjective Progress Note Date: 10/04/20 Principal diagnosis: Respiratory failure Patient doing well today. He is very alert. Responding appropriately. No bleeding around the tracheostomy since around midnight or so. Heparin is now on hold. He is tolerating his tube feeds at goal. Small smear of a bowel movement. Denies abdominal pain. Objective - Vital Signs Vital signs: Vital Signs Temp 98.8 F 10/04/20 12:00 Pulse 120 H 10/04/20 14:00 Resp 26 H 10/04/20 14:00 BP 125/92 10/04/20 14:00 Pulse Ox 97 10/04/20 14:00 Intake & Output 10/03/20 10/04/20 10/04/20 18:59 06:59 18:59 Intake Total 1275.757 258.009 0138.070 Output Total 3000 30 Balance -1724.243 958.173 2945.070 Weight 156.9 kg 153.9 kg Intake: IV 292 192 73 0.9 Normal Saline 72 72 33 Pressure Bag Sodium Chloride 0.9% 1, 120 120 40 000 ml @ 10 mls/hr IV . Q24H [facility] Rx#:[id number] Zosyn 100 Intake, IV Titration 613.757 127.262 15.070 Amount Dexmedetomidine/0.9% NaCl 141.379 113.861 15.070 (Pmx) 400 mcg In Empty Bag 1 bag @ Titrate IV . Q0M [facility] Rx#:[id number] Heparin Sod,Pork in 0.45% 202.205 NaCl 25,000 unit In 0.45 % NaCl 1 250ml.bag @ 8.13 UNITS/KG/HR 10 mls/hr IV .Q24H [facility] Rx#:[id number] Norepinephrine 8 mg In 0 Sodium Chloride 0.9% 250 ml @ 0.05 MCG/KG/MIN 13. 816 mls/hr IV .[id number] [facility] Rx#:[id number] Norepinephrine 8 mg In 13.401 Sodium Chloride 0.9% 250 ml @ 0.05 MCG/KG/MIN 14. 89 mls/hr IV .[id number] [facility] Rx#:[id number] fentaNYL (PF) 2,500 mcg 270.173 In Sodium Chloride 0.9% 200 ml @ Per Protocol IV .Q0M [facility] Rx#:[id number] Tube Feeding 280 511 357 Hemodialysis 3000 Other 90 90 60 Output: Urine 30 Hemodialysis 3000 Other: Voiding Method Indwelling Catheter Indwelling Catheter Indwelling Catheter ABP, PAP, CO, CI - Last Documented Arterial Blood Pressure 113/66 - Exam Trach site with dressing intact, no active bleeding, no significant blood on dressing currently Abdomen distended, nontender, PEG tube in place - Labs CBC & Chem 7: 10/04/20 03:41 10/04/20 03:41 Labs: Abnormal Lab Results - Last 24 Hours (Table) 10/03/20 10/03/20 10/03/20 Range/Units 17:41 19:00 20:44 WBC 19.5 H (3.8-10.6) k/uL RBC 2.59 L (4.30-5.90) m/uL Hgb 8.4 L (13.0-17.5) gm/dL Hct 25.0 L (39.0-53.0) % Plt Count 633 H (150-450) k/uL Neutrophils # (1.3-7.7) k/uL Lymphocytes # (1.0-4.8) k/uL ABG pO2 (83-108) mmHg BUN (9-20) mg/dL Creatinine (0.66-1.25) mg/dL Glucose (74-99) mg/dL POC Glucose (mg/dL) 115 H 124 H (75-99) mg/dL Calcium (8.4-10.2) mg/dL 10/04/20 10/04/20 10/04/20 Range/Units 03:38 03:41 03:41 WBC 14.3 H (3.8-10.6) k/uL RBC 2.42 L (4.30-5.90) m/uL Hgb 7.7 L (13.0-17.5) gm/dL Hct 23.3 L (39.0-53.0) % Plt Count 545 H (150-450) k/uL Neutrophils # 12.7 H (1.3-7.7) k/uL Lymphocytes # 0.7 L (1.0-4.8) k/uL ABG pO2 (83-108) mmHg BUN 77 H (9-20) mg/dL Creatinine 5.45 H (0.66-1.25) mg/dL Glucose 114 H (74-99) mg/dL POC Glucose (mg/dL) 115 H (75-99) mg/dL Calcium 7.9 L (8.4-10.2) mg/dL 10/04/20 10/04/20 Range/Units 05:42 11:36 WBC (3.8-10.6) k/uL RBC (4.30-5.90) m/uL Hgb (13.0-17.5) gm/dL Hct (39.0-53.0) % Plt Count (150-450) k/uL Neutrophils # (1.3-7.7) k/uL Lymphocytes # (1.0-4.8) k/uL ABG pO2 77 L (83-108) mmHg BUN (9-20) mg/dL Creatinine (0.66-1.25) mg/dL Glucose (74-99) mg/dL POC Glucose (mg/dL) 130 H (75-99) mg/dL Calcium (8.4-10.2) mg/dL Assessment and Plan (1) Acute respiratory failure Narrative/Plan: Patient doing better today. Will consider restarting heparin drip tomorrow. Continue tube feeds at goal. We'll follow. Current Visit: Yes Status: Acute Code(s): J96.00 - ACUTE RESPIRATORY FAILURE, UNSP W HYPOXIA OR HYPERCAPNIA SNOMED Code(s): 01069497
[2020-10-04] MEDS: HEPARIN SODIUM,PORCINE/PF 5,000 UNIT/0.5 ML SYRINGE SQ SCH ×2 (15:24→17:15)
[2020-10-04 18:10] LABS: Glucose,Whole Blood 121 mg/dL (75-99)
[2020-10-04] MEDS: polyethylene glycoL 3350 17 GM POWD.PACK PO SCH (21:26)
[2020-10-04 23:53] LABS: Glucose,Whole Blood 130 mg/dL (75-99)
[2020-10-05] MEDS: HEPARIN SODIUM,PORCINE/PF 5,000 UNIT/0.5 ML SYRINGE SQ SCH ×4 (01:43→23:57)
[2020-10-05] MEDS: IPRATROPIUM-ALBUTEROL 3 ML NEB INHALATION SCH ×6 (03:10→23:04)
[2020-10-05 05:52] LABS: ABG HCO3 25 mmol/L (21-25); ABG Oxygen Saturation 98.2 % (94-97); ABG PCO2 38 mmHg (35-45); ABG PH 7.43 (7.35-7.45); ABG PO2 106 mmHg (83-108); ABG TCO2 26 mmol/L (19-24); Allen Test Performed? Yes
[2020-10-05] MEDS: LEVOTHYROXINE 50 MCG TAB PO SCH (06:18)
[2020-10-05 06:47] LABS: Glucose,Whole Blood 122 mg/dL (75-99)
--- NOTE | 2020-10-05 08:10 | XR ---
EXAMINATION TYPE: XR chest 1V portable DATE OF EXAM: 10/05/2020 COMPARISON: 10/04/2020 HISTORY: Shortness of breath TECHNIQUE: Single frontal view of the chest is obtained. FINDINGS: Diffuse bilateral airspace disease noted. Lung base of the left not included. Heart is enl arged and right-sided dialysis catheter noted. Central line and tracheostomy tube stable. PICC line n oted. No pneumothorax. Appears to be progression of airspace disease involving the right perihilar re gion. IMPRESSION: 1. Diffuse bilateral airspace disease with progression in the right perihilar region correlate for pu lmonary edema versus diffuse pneumonia.
[2020-10-05 09:17] LABS: HCT 25.5 % (39.0-53.0); HGB 8.3 gm/dL (13.0-17.5); Hypochromasia Slight; MCHC 32.4 g/dL (31.0-37.0); MCV 98.8 fL (80.0-100.0); Macrocytosis Slight; Mean Platelet Volume 8.1; Platelet Count 534 k/uL (150-450); RBC 2.58 m/uL (4.30-5.90); RDW 15.3 % (11.5-15.5)
[2020-10-05 09:32] LABS: Potassium 4.6 mmol/L (3.5-5.1)
[2020-10-05 09:33] LABS: Calcium 8.4 mg/dL (8.4-10.2); Magnesium 2.7 mg/dL (1.6-2.3); Phosphorus 7.2 mg/dL (2.5-4.5)
[2020-10-05] MEDS ORDERED: CISATRACURIUM 2 MG/ML 5 ML VIAL IV ONE (09:45)
[2020-10-05] MEDS: CALCIUM ACETATE 667 MG TAB PO SCH ×4 (09:47→19:53)
[2020-10-05] MEDS: CLOPIDOGREL 75 MG TAB PO SCH (09:47)
[2020-10-05] MEDS: AMIODARONE 200 MG TAB PO SCH ×2 (09:47→19:53)
[2020-10-05] MEDS: ASPIRIN 81 MG PO SCH (09:47)
[2020-10-05] MEDS: SODIUM BICARBONATE TAB 650 MG TAB PO SCH ×2 (09:47→19:53)
[2020-10-05] MEDS: PANTOPRAZOLE 40 MG/10 ML VIAL IVP SCH (09:48)
[2020-10-05] MEDS ORDERED: PIPERACILLIN-TAZOBACTAM 3.375 GM in SODIUM CHLORIDE 0.9% 100 ML IVPB SCH (10:00)
[2020-10-05 10:03] LABS: Metamyelocytes # (M) 0.28 k/uL (0); Metamyelocytes % 2 %; Monocytes # (M) 0.28 k/uL (0-1.0); Myelocytes # (M) 0.14 k/uL (0); Myelocytes % 1 %; Neutrophils % (M) 86 %; Nucleated Red Blood Cells 3 /100 WBC (0-0); Total Cells Counted 200
[2020-10-05 10:04] LABS: Eosinophils # (M) 0.41 k/uL (0-0.7); Lymphocytes # (M) 0.97 k/uL (1.0-4.8); Neutrophils # (M) 11.87 k/uL (1.3-7.7); Polychromasia Present; WBC 13.8 k/uL (3.8-10.6)
--- NOTE | 2020-10-05 10:15 | PN ---
PROGRESS NOTE Patient is seen for followup for acute kidney injury. Currently patient remains on the vent. However, he is awake and following commands. He still does not have much urine output. He is currently being dialyzed on a daily basis for significant volume overload and hypercatabolic state. PHYSICAL EXAMINATION: On examination today, blood pressure is 124/77, heart rate 130 per minute. He is afebrile. Examination of the heart S1, S2. Examination of the lungs, decreased breath sounds at the bases. Abdomen is soft, nontender. Examination lower extremities shows edema 2+ bilaterally with significant scrotal edema as well. PERIODICALS CLERK exam shows patient is following commands. LAB: Show sodium 137, potassium 4.6, chloride 103, BUN 77, creatinine 5.45, hemoglobin 7.7 g/dL. ASSESSMENT: 1. Acute kidney injury, acute tubular necrosis, secondary to hypotension, cardiogenic shock and contrast nephropathy. Patient remains oliguric and dialysis dependent. We will continue with the daily dialysis, now mostly for volume overload. 2. Severe volume overload, slowly improving. The patient remains with significant scrotal edema. 3. Status post cardiac arrest. 4. Coronary artery disease status post coronary artery stent placement. 5. Cardiomyopathy, ejection fraction 20-25%. 6. Acute hypoxic respiratory failure currently improving. Expect further improvement with improvement in volume status. PLAN: Continue with daily dialysis for now. MMODL / IJN: [id number] /
[2020-10-05] MEDS: SODIUM CHLORIDE 0.9% 500 ML IV SCH (11:39)
[2020-10-05 11:47] LABS: Glucose,Whole Blood 105 mg/dL (75-99)
--- NOTE | 2020-10-05 12:36 | P.PN ---
Subjective Progress Note Date: 10/05/20 Principal diagnosis: Cardiac arrest and acute hypoxic respiratory failure secondary to cardiac arrest. 59-year-old male patient, post cardiac arrest, V. fib arrest, who is admitted intensive care unit since 09/17/2020 and the patient is being seen in follow-up today on 09/25/2020. The patient is still intubated on a mechanical ventilator. The patient was a V. fib arrest, received CPR on the scene, defibrillated, received epinephrine and was brought into us in his been in the intensive care unit setting. He turned out to be a case of a ST segment elevation myocardial infarction. He received immediate cardiac catheterization and stenting of the circumflex artery. The patient this morning is sedated with propofol running at 60 mcg/kg per minute. Is also on fentanyl 1 mcg/mg/h. He is off pressors. His cardiac rhythm is sinus with a left bundle branch block pattern. Over the past 24 hours, the patient was given dobutamine to augment his cardiac output. He went into atrial fibrillation with RVR. He was given a bolus of amiodarone and he is currently back into normal sinus rhythm. In terms of his vent support, the patient remains on mechanical ventilator. At this point in time, the patient is an assist-control mode at the rate of 28 and a tidal volume of 500 and FiO2 of 50% with a PEEP of 10. The blood gases from today showing a pH of 7.31 with a pCO2 of 35 and pO2 of 122. He is in renal failure. He is receiving dialysis periodically. He received dialysis on 09/20/2020 and 09/21/2020. Dialysis was attempted yesterday, unable to complete as the patient's catheter was kinked and Changes will be done today surgery. He will probably end up hav ing another session of hemodialysis today. When the process of getting the patient sedation holiday in his neurologic function will be reevaluated. CAT scan of the brain another EEG is in progress for today. He is on Levemir insulin for blood sugar control. He is on vital high protein at the rate of 27 mL an hour. No abdominal distention. No nausea or vomiting. No fever or chills. Chest x-ray is showing cardiomegaly with small bilateral pleural effusions on some atelectatic changes in lung bases bilaterally. Orogastric tube is in a good location. He does have small pleural effusions. There is stable cardiomegaly. In terms of his blood work, the white cell count is at 9.2 with a hemoglobin of 9.6. Sodium is at 129, potassium at 5.3, serum bicarbonate is 14 with a BUN of 78 and a creatinine of 9.67. On today's evaluation of 09/26/2020, the patient is being given another sedation holiday. The process yesterday got interrupted as the patient became basically a mechanical ventilator and the patient went into atrial fibrillation with rapid ventricular response. At that point, the patient was placed back on sedation with accommodation propofol and fentanyl and he was kept on the sedation throughout the day. This morning, the plan is to get him off the sedation again and utilizing Precedex if needed. A repeat CAT scan of the brain was ordered for today and the CAT scan showed age-related atrophy and chronic small vessel ischemic changes without any acute intracranial process. No evidence of any acute bleeding. On today's evaluation, the patient is grimacing to deep painful stimulation that was applied to his fingers and toes. For now, the patient is calm and comfortable. He is synchronous with the mechanical ventilator. He is on assist control mode of ventilation, at the rate of 28 and a tidal volume of 500 and FiO2 of 40% with a PEEP of 5. The blood gases from today showed a pH of 7.29 with a pCO2 of 41 and pO2 of 75. This was on FiO2 of 40%. The patient's chest x-ray showed stable findings along with some pulmonary a congestion and scattered infiltrates and interstitial edema. The orotracheal tube was in a good location. NG tube was also in a good location. The patient is currently in normal sinus rhythm. He is on amiodarone drip at 1 mg per minute and based on cardiology recommendation, we'll continue the amiodarone drip at a mainten ance of 1 mg per minute. A minimal amount of urine output. The patient remains in acute kidney injury. Creatinine is up to 7.98. Underwent hemodialysis yesterday. A another session of hemodialysis will be given to him today. He is afebrile. He is receiving enteral feeding for nutritional support. He continues to be on a combination of aspirin and Plavix. He is on no pressors for now. Had a discussion with the . Updated her on his condition. There is a concern of ongoing hypoxic encephalopathy. Meanwhile, the patient remains on Levemir insulin for blood sugar control in addition a slight scale insulin coverage. The patient is receiving vital high protein which is currently at goal. Current cardiac rhythm is sinus with a bundle-branch block pattern. 09/27/2020, I'm seeing the patient for a follow-up. Note that the patient is a case of a cardiac arrest with a STEMI requiring emergent cardiac catheterization and stenting of the circumflex. During the course of his treatment, the patient required insertion and removal of an impeller device. In any rate, there was a concern of the patient was having anoxic encephalopathy. Yesterday, I took him off the fentanyl and the propofol and I switched him to Precedex. As the weaning was being done, the patient was given a sedation holiday and he got to the point where he was awake and following some simple commands. He would open up his eyes. He would move his toes and fingers upon demand. This was also confirmed by neurology. As such, we believe that there is adequate neurologic functions. Nevertheless, as the patient was taken off the sedation, he required more sedation he was placed on Precedex and ultimately were unable to control his restlessness and the patient was having increased tachypnea tachycardia and episodes of atrial fibrillation with rapid ventricular response. He was also desaturating as the patient was becoming asynchronous with a mechanical ventilator. I had to put him back on propofol is currently running at 45 mcg/kg per minute. He stayed on propofol throughout the night. Meanwhile, he remains on assist control mode at a rate of 22 with a tidal volume of 500 and FiO2 of 70% with a PEEP of 10. The blood gases from today showing a pH of 7.35 with a pCO2 of 40 and pO2 of 129. The chest x-ray showing development of a right lower lobe pulmonary infiltrate. ET tube is in a good location. There is a suspicion of a right lower lobe pneumonia. White cell count is up to 15.2. Mild dynamically, he is on no pressors. He is back in normal sinus rhythm. He remains on amiodarone 1 mg per minute per imaging center manager recommendation. He does have a bundle-branch block pattern. A repeat echocardiogram was done today and his EF is still poor, less than 20%. He remains in renal failure. He is requiring daily hemodialysis. Underwent hemodialysis yesterday with ultrafilt ration of 500 mL. He continues to have extensive swelling in the upper and lower extremity and in his scrotum. On today's evaluation, he is also noted to have diminished pulses in lower extremities bilaterally. Doppler significant drop in the right foot. Right foot is cold and an same time there is some skin mottling and cyanosis in his toes mainly on the right. As mentioned, the right foot is cold yet Doppler signals are present. His previously inserted and patella was in the right femoral artery. There is also some rash developing over his upper thighs and abdomen and trunk and shoulders and upper extremities. He is receiving enteral feeding for nutritional support and is currently on vital high protein running at 23 mL an hour. Urine output is 5 mL an hour. 09/28/2020, the patient is being seen for a follow-up. He has been kept on propofol 45 mg/kg/m. We were unable to control his condition off sedation. He went on Precedex and he was still quite restless and agitated and at that point he was switched again to propofol. This morning is much more comfortable. Nevertheless, blood was noted to be lipemic. We're going to check her triglyceride levels and switch this patient back to Precedex. Note that while on Precedex, the patient was able to follow some simple commands. The ultimate plan is to proceed with a pack and a tracheostomy tube insertion and this is scheduled to be done tomorrow. Meanwhile, the patient underwent hemodialysis today. A total of 1.5 L of ultrafiltration was performed. His cardiac rhythm remains atrial fibrillation and amiodarone is running at 1 mg per minute. He remains on a mechanical ventilator on assist control mode with a rate of 22 and tidal volume of 550 FiO2 of 60% with a PEEP of 10. Blood gas showed a pH of 7.37 with a pCO2 of 34 and pO2 of 100. The patient is also receiving enteral feeding for nutritional support with Nepro 20 mL an hour. Urine output is minimal. The patient had some ischemic changes in the lower extremity especially on the right. On today's evaluation, the right foot is warmer compared to yesterday and there are Doppler signals bilaterally. Arterial Dopplers abdominal pain and the results of the pending in the patient is being seen by vascular surgery. He is on no pressors for now. On today's chest x- ray, there is the blood of the right lung consolidation. The patient was prod ucing purulent mucus yesterday. Sputum cultures have been sent. The patient was started on IV Zosyn. Rest or secretions improved since yesterday. White cell count currently is at 14.8 with hemoglobin of 9.4. 09/29/2020, the patient was taken to the operating room for a PEG and trach and the patient was brought back without having the procedure done. Note that the patient was quite stable earlier this morning. He was on Precedex which was running at 0.6 mcg/kg/h. He was able to respond and follows some simple commands. By the time he arrived to the operating room, the patient was placed on the operating room table and he became hypoxic and he developed oxygen desaturation was also stop in the mid 80s. At that point, the procedure was canceled as the patient was transferred back into the intensive care unit. I have an ICU. Currently is on Precedex at 0.7 mcg/kg/h. He was also given Dilaudid 1 mg IV. He is resting comfortably on a mechanical ventilator for now. He is on assist control mode at a rate of 20 with a tidal volume of 600 and FiO2 of 17 with a PEEP of 8. His current pulse ox is 93%. Chest x-ray from today is showing cardiomegaly. There is pulmonary vascular congestion. There is also consolidation of the right lung which we suspected this was related to a n underlying pneumonia. There is also bibasilar infiltrates. No pneumothorax. No pleural effusion. ET tube was in a good location. His sputum productions with orotracheal tube has subsided and the cultures that were collected earlier has not resulted in to have positive growth. The patient remains on IV Zosyn as an empiric antibiotic coverage. He is afebrile for now. As mentioned earlier, he is able to communicate once sedation is off and wheezing. Neurologically the patient is intact. In terms of hemodynamics, current rhythm is sinus. He has a bundle-branch block pattern, left-sided and the patient remains on amiodarone 1 mg per minute. His anticoagulation with IV heparin was held as the patient was being considered for a PEG and trach today. I may restart anticoagulation as long as we have a PTT breathing on this patient. Note that his triglyceride levels was up to 987. He was taken off the propofol. He is supposed to undergo dialysis today. He is able to undergo dialysis without any major issues. His BUN is at 87 with a creatinine of 7.2. His sodium level is at 131 with a potassium level of 5.5. Hemoglobin today is at 8.8 with a white cell count of 13.0. The enteral feeding has been held this morning in preparation for PEG and trach. I'm going to start him back on feeding today which is in the form of Nepro at the rate of 23 mL an hour. 2020, the patient is being seen for a follow-up. The plan is to proceed with a PEG tube a tracheostomy tube insertion tomorrow. The procedure yesterday got complicated as the patient desaturated and operate. This morning, he is on a combination of Precedex and fentanyl drip for sedation. Precedex is running at 0.7 mcg/kg/h and fentanyl is running at 2 mcg/kg/h. He still opens up his eyes. He is partially responsive to painful stimulation and tactile stimulation. Meanwhile, he remains on a mechanical ventilator. He remains on assist control mode at the rate of 20 with a tidal volume of 600 and FiO2 of 50% with a PEEP of 8. Blood gases from this morning show a pH of 7.39 with a pCO2 of 36 and pO2 of 88. No significant orotracheal secretions. Awaiting follow-up chest x-ray from today. Meanwhile, the sputum culture came back negative and the patient was covered empirically with IV Zosyn. He is currently off the amiodarone drip. Cardiac rhythm still in atrial fibrillation which is under better control. He remains also on IV heparin. Note that he goes back and forth between sinus rhythm and atrial fibrillation. His ejection fraction is less than 20%. He is tolerating his enteral feeding for nutritional support. He is afebrile. Potassium today's of 5.7 and this will be treated medically and the patient underwent his hemodialysis yesterday. No dialysis to follow first thing in the morning. BUN is at 84 with a creatinine of 6.4. In regards to his high potassium, he'll be given 10 units of regular insulin along with D50 in addition to 4 bicarb doses of 50 mEq. We'll monitor his potassium level. Patient was reevaluated today on 10/01/2020, remains in the ICU, intubated and mechanically ventilated. Patient is on volume control plus with volume of 600, FiO2 50%, inspiratory time of 0.9 seconds, PEEP at 8, rate is at 20. Vent changes were made today, increase rate to 26 decreased I'll volume to 550 and decreased inspiratory time to 0.80. Patient remains on fentanyl at 2 mcg/kg/h, he is on Precedex at 0.7 mcg/kg/m. He is also on heparin but presently off since the patient is going for tracheostomy and PEG tube placement. He is off norepinephrine. ABG this morning showed a pO2 of 88 pCO2 of 41 pH of 7.34. He is in atrial fibrillation with a rate of 106. Patient is on hemodialysis, received dialysis today and 2 L were off. Last hemodialysis was 09/28 and 1.8 L were taken off. He is empirically on Zosyn which may have to be discontinued, patient had over 11 days of Zosyn. And no clear-cut culture to treat. Chest x- ray showed indwelling tubes and catheters are in place. Scattered perihilar infiltrates and bibasilar infiltrates are the same. Pleural effusion is also unchanged. Potassium today is 5.7. WBC is 4.8 hemoglobin is 7.8. Blood sugar is 87. BUN is 111 creatinine 7.46. Liver enzymes are elevated with ALT of 26 AST of 396 alkaline phosphatase of 232. Patient was reevaluated today on 10/02/2020, remains in the ICU intubated and mechanically ventilated. Patient underwent uneventful tracheostomy and PEG tube placement yesterday. Ventilator settings are assist control rate of 26 tidal volume is 550 he is on volume control plus, FiO2 50% and PEEP is at 8. ABG showed a pO2 of 97 pCO2 of 38 pH of 7.37. Patient remains on Precedex, and 0.7, norepinephrine at 0.02, fentanyl 2 mcg/kg/h, and IV fluid at KVO. Patient is receiving dialysis during my evaluation. He is hemodynamically marginal, requiring norepinephrine. My plan is to cut down on the fentanyl, hopefully that will improve his blood pressure today. Yesterday he had 2 L off after hemodialysis, and so far dialysis seems to be ongoing again today. Neurologically the patient is about the same. He opens eyes but does not follow any instructions, does not follow any commands. He grimaces to painful stimuli. Labs today showed WBC count of 13.4 hemoglobin is 8.1. Potassium is 6.3 and that would be corrected by hemodialysis. Blood sugar is 85. Patient was rest arted back on heparin drip today. It was on hold for his tracheostomy and PEG tube placement. Chest x-ray showed unchanged hazy airspace opacities and but may be a small left pleural effusion Reevaluated today on 10/03/2020, remains in the ICU, intubated and mechanically ventilated. Volume control plus with tidal volume 550, rate of 26 FiO2 50% PEEP at 8 ABG showed a pO2 of 75 pCO2 42 pH of 7.36. Blood pressure is 27. Patient remains on Precedex and on fentanyl which I plan to discontinue today. Patient is also on heparin. Remains clinically about the same, opens eyes, but not following any instructions or any commands. Chest x-ray continues to show some evidence of interstitial edema and fluid overload, patient is receiving hemodialysis during my evaluation. And the plan is to remove 2 L at least. Has been receiving dialysis on a daily basis. He is in atrial fibrillation rate of 112. He is hemodynamically stable, not requiring any pressors at this time. Mentation is basically about the same, and I have not seen any change in the last 3 days. Supposedly his EEG showed metabolic encephalopathy and swallowing patient continues to be followed by neurology regarding his anoxic brain injury. Absent today were all reviewed. PTT is 40.5 WBC count is 16.1 hemoglobin 8.29. Normal renal profile showed a BUN of 87 creatinine 6.05. Liver enzymes remain elevated. His AST is 576 alkaline phosphatase is 223. Reevaluated today on 10/04/20, remains in the ICU, intubated and mechanically ventilated. He is on assist control rate of 26, volume control +550 FiO2 50% and PEEP of 8. ABG showed a pO2 of 77 pCO2 of 37 pH of 7.40. Patient is off all narcotics and sedatives, he is also off Precedex. And today he is actually making some neurological improvement. Patient is able to follow simple instructions like squeezing hands, sticking out tongue, closing eyes, he seems to be comprehending what he is being controlled. But he is generally weak. This is the best I have seen him in the last 4 days. Patient will remain off narcotics and sedatives for today. His ventilator settings remained the same unchanged. Chest x-ray continues to show similar changes as before with some component of fluid overload, patient is still receiving dialysis. He is off antibiotics at present. Remains on tube feeding using the Nepro. I started him today on subcu heparin, he was on IV heparin yesterday, however he developed bleeding around the tracheostomy site. Hence heparin was placed on hold but today I'm placing him on subcu heparin. Patient is also on Plavix. Remains in atrial fibrillation. Patient will be undergoing hemodialysis again, and hopefully will remove another 3 L of fluid removed as removed yesterday. WBC count is 14.3 hemoglobin is 7.7. Electrolytes are normal renal profile is abnormal patient is on hemodialysis Reevaluated today on 10/05/2020, patient remains in the ICU, intubated and mechanically ventilated. Patient is on assist control rate of 26, volume control +550 FiO2 50% and PEEP remains at 8 .I cut down his FiO2 to 45%. ABG showed a pO2 of 106 pCO2 of 38 pH of 7.43. Patient remains awake, remains hemodynamically stable not requiring any pressors or inotropes. His chest x-ray showed slight worsening ofdisease in the right lower lobe, not clear whether some of it is fluid related and or infection. Hence I'm recommending that we restart him back on Zosyn. I have also recommended that we discontinue his central line today. Patient has a PICC line in place, and he has a dialysis catheter in place. I did place a new arterial line today. Chest x-ray was reviewed. And as noted earlier. Labs were all reviewed. Patient is undergoing hemodialysis again today. Over the last couple of days, significant improvement noted in his overall neurological status. Remains off narcotics and sedatives. Objective - Vital Signs Vital signs: Vital Signs Temp 98.7 F 10/05/20 08:00 Pulse 120 H 10/05/20 12:11 Resp 26 H 10/05/20 11:00 BP 120/95 10/05/20 11:00 Pulse Ox 97 10/05/20 11:00 Intake & Output 10/04/20 10/05/20 10/05/20 18:59 06:59 18:59 Intake Total 3805.070 684 403 Output Total 0 0 Balance 3805.070 684 403 Weight 150.8 kg Intake: IV 88 33 118 0.9 Normal Saline 48 33 18 Pressure Bag Sodium Chloride 0.9% 1, 40 000 ml @ 10 mls/hr IV . Q24H JORDANA Rx#:[id number] Sodium Chloride 0.9% 500 100 ml @ 10 mls/hr IV .Q24H JORDANA Rx#:[id number] Intake, IV Titration 15.070 Amount Dexmedetomidine/0.9% NaCl 15.070 (Pmx) 400 mcg In Empty Bag 1 bag @ Titrate IV . Q0M JORDANA Rx#:[id number] Tube Feeding 612 561 255 Hemodialysis 3000 Other 90 90 30 Output: Urine 0 0 Other: Voiding Method Indwelling Catheter Indwelling Catheter ABP, PAP, CO, CI - Last Documented Arterial Blood Pressure 124/85 - Exam Physical Exam: Revealed 59-year-old white male intubated and mechanically ventilated, follows simple instructions today, Head: Atraumatic, normocephalic. Tracheostomy is intact. No active bleeding noted today. HEENT:[Neck is supple.] [No neck masses.] [No thyromegaly.] [No JVD.] The left, EOMI, nonicteric, moist mucous membranes. Chest: [Symmetrical chest expansion, crackles at the bases.] No rhonchi no wheezes. Cardiac Exam: Irregular irregular rhythm, 2/6 systolic murmur thought the precordium. Distant S1 and S2. Abdomen: [Obese, Soft, nontender, no megaly, no rebound, no guarding, negative bowel sounds. Significant scrotal edema is noted. Unchanged. Extremities: [No clubbing, 3+ bipedal edema, no cyanosis.] Diminished distal pulses bilaterally.. Dialysis catheter is in the left femoral vein. Neurological Exam: Opens eyes, squeezing hands, sticks out tongue when told to do so, close his eyes when told to do so. Generally weak. Skin: No rashes. Psychiatric: Depressed mood, flat affect, follows all simple instructions today. Including closing eyes, sticking out tongue, squeezing hands, wiggling toes. - Labs CBC & Chem 7: 10/05/20 07:25 10/05/20 07:25 Labs: Abnormal Lab Results - Last 24 Hours (Table) 10/04/20 10/04/20 10/05/20 Range/Units 17:59 23:51 05:50 WBC (3.8-10.6) k/uL RBC (4.30-5.90) m/uL Hgb (13.0-17.5) gm/dL Hct (39.0-53.0) % Plt Count (150-450) k/uL Neutrophils # (Manual) (1.3-7.7) k/uL Lymphocytes # (Manual) (1.0-4.8) k/uL Metamyelocytes # (Man) (0) k/uL Myelocytes # (Manual) (0) k/uL Nucleated RBCs (0-0) /100 WBC ABG Total CO2 26 H (19-24) mmol/L ABG O2 Saturation 98.2 H (94-97) % BUN (9-20) mg/dL Creatinine (0.66-1.25) mg/dL Glucose (74-99) mg/dL POC Glucose (mg/dL) 121 H 130 H (75-99) mg/dL Phosphorus (2.5-4.5) mg/dL Magnesium (1.6-2.3) mg/dL 10/05/20 10/05/20 10/05/20 Range/Units 06:46 07:25 07:25 WBC 13.8 H (3.8-10.6) k/uL RBC 2.58 L (4.30-5.90) m/uL Hgb 8.3 L (13.0-17.5) gm/dL Hct 25.5 L (39.0-53.0) % Plt Count 534 H (150-450) k/uL Neutrophils # (Manual) 11.87 H (1.3-7.7) k/uL Lymphocytes # (Manual) 0.97 L (1.0-4.8) k/uL Metamyelocytes # (Man) 0.28 H (0) k/uL Myelocytes # (Manual) 0.14 H (0) k/uL Nucleated RBCs 3 H (0-0) /100 WBC ABG Total CO2 (19-24) mmol/L ABG O2 Saturation (94-97) % BUN 77 H (9-20) mg/dL Creatinine 5.65 H (0.66-1.25) mg/dL Glucose 115 H (74-99) mg/dL POC Glucose (mg/dL) 122 H (75-99) mg/dL Phosphorus 7.2 H (2.5-4.5) mg/dL Magnesium 2.7 H (1.6-2.3) mg/dL 10/05/20 Range/Units 11:46 WBC (3.8-10.6) k/uL RBC (4.30-5.90) m/uL Hgb (13.0-17.5) gm/dL Hct (39.0-53.0) % Plt Count (150-450) k/uL Neutrophils # (Manual) (1.3-7.7) k/uL Lymphocytes # (Manual) (1.0-4.8) k/uL Metamyelocytes # (Man) (0) k/uL Myelocytes # (Manual) (0) k/uL Nucleated RBCs (0-0) /100 WBC ABG Total CO2 (19-24) mmol/L ABG O2 Saturation (94-97) % BUN (9-20) mg/dL Creatinine (0.66-1.25) mg/dL Glucose (74-99) mg/dL POC Glucose (mg/dL) 105 H (75-99) mg/dL Phosphorus (2.5-4.5) mg/dL Magnesium (1.6-2.3) mg/dL Assessment and Plan Assessment: Impression: Acute hypoxic respiratory failure secondary to cardiac arrest. Patient presented with V. fib cardiac arrest. Status post cardiac catheterization and stenting of the circumflex Severe ischemic cardiomyopathy and LV dysfunction. Hypoxic encephalopathy. Suspect anoxic brain injury. Slight improvement noted today in his mental status Acute kidney injury secondary to acute tubular necrosis and cardiac arrest. Patient is requiring hemodialysis. Shock liver. Paroxysmal atrial fibrillation. Restarted back on heparin today. Hypothyroidism. History of depression. Fluid overload with extensive edema in lower and upper extremities as well as scrotal swelling noted. Related to renal failure and acute kidney injury, patient is improving with dialysis. Status post tracheostomy and PEG tube placement on 10/01/2020. Recommendation: Continue ventilatory support. FiO2 was decreased down to 45%. Continue nutritional support. Patient is on enteral feeding. Continue subcu heparin. Discontinue central line. Continue with PICC line, and dialysis catheter. Left radial arterial line was placed. Continue hemodialysis. Continue GI and DVT prophylaxis. Will likely start pressure support with CPAP trials of weaning in the next 24 hours. Critical care time is over 30 minutes. Not including the time spent on procedures/radial arterial line placement We'll continue to follow, Time with Patient: Greater than 30
[2020-10-05] MEDS: METOPROLOL SUCCINATE (ER) 25 MG TAB.ER.24H PO SCH (12:59)
[2020-10-05] MEDS: NOREPINEPHRINE 8 MG in SODIUM CHLORIDE 0.9% 250 ML IV SCH (13:00)
--- NOTE | 2020-10-05 13:57 | P.PN ---
Subjective This is a 59-year-old male with a past medical history significant for hypertension, hypothyroidism. Patient does not follow with a pot reliner kati victoria. Patient admitted on 09/17/2020, apparently had a cardiac arrest at home. provided CPR. When EMS arrived the patient was found to be in V. fib. Patient received defibrillation 3 and epi 2. Downtime is unclear. Patient was found to have ST elevation on his EKG and was taken to the chemical laboratory tester upon arrival to the hospital with Dr. Antoine Patient underwent PCI to the circumflex with impella placement. Echocardiogram revealed LF systolic function is severely impaired with an EF <20%, severe global hypokinesis. Patient's course also complicated by new onset atrial fibrillation and acute renal failure started on dialysis. Patient was started on Amiodarone drip on 09/21/20, now transitioned to PO amiodarone. 09/26- CT Brain negative for acute intracranial process. 09/27- LE dopplers completed awaiting read. 09/29- patient was scheduled for Trach and PEG tube placement, however, the patient became hypoxic and developed desaturations, procedure was canceled and rescheduled 10/01. Apparently patient did follow some simple commands 09/22 in the morning with at bedside. 10/01/2020: In ICU. Patient underwent Trach and PEG tube placement. He underwent dialysis with 2.3L removed. He is currently being maintained on amiodarone 400 mg twice a day, aspirin 81 mg daily, Plavix and 5 mg daily, IV heparin, Fentanyl drip, Precedex drip. Levophed is on hold. 10/05/2020 Patient seen in the ICU. mechanically ventilated. He is more alert this morning, following some commands. He is currently being maintained on amiodarone 400 mg twice a day, aspirin 81 mg daily, Plavix 75 mg daily, Patien is off vasopressors and inotropes. Off narcotics and sedatives. IV heparin has been stopped due to patient having increased bleeding from his tracheostomy. Patient started on Subq heparin. Telemetry reviewed, patient continues to be in atrial fibrillation HR are increased 120-130 wide QRS. He is undergoin dialysis daily. Chest x-ray shows slight worsening disease in the right lower lobe pulmonary edema vs pneumonia. Patient started on IV zosyn PHYSICAL EXAM: VITAL SIGNS: BP 139/63, heart rate 121 afebrile GENERAL: In no acute distress on mechanical ventilation NECK: Supple. No JVD LUNGS: Respirations even and unlabored. Lungs diminished with bilateral crackles at bases. HEART: Irregular tachycardic rate and rhythm. S1 and S2 heard. Systolic murmur noted EXTREMITIES: No clubbing or cyanosis. NEURO: Awake, open eyes moving eyes towards the caller, able to cough ASSESSMENT: STEMI, s/p PCI to circumflex and impella placement V-fib arrest Hypertension - hypotensive while inpatient Dyslipidemia Ischemic cardiomyopathy EF <20% Cardiogenic Shock Acute Hypoxic Respiratory Failure requiring intubation on a mechanical ventila tor Acute Renal Failure- requiring hemodialysis - Nephrology following Paroxysmal atrial fibrillation Anemia s/p PEG and Tracheostomy placement 10/01/20 PLAN: -We will continue current medical therapy with dual antiplatelet therapy aspirin and Plavix, amiodarone 400mg BID (Drip started 09/21, PO started 09/29/20). -Start metoprolol succinate 25mg daily -Heparin drip on hold due to increased bleeding from tracheostomy tube. Heparin Subq started yesterday -Statin has been on hold due to elevated LFTs -Pulmonary following, appreciate recs -Nephrology following for dialysis, appreciate recs -Further recommendations based on clinical course Nurse practitioner note has been reviewed by physician. Signing provider agrees with the documented findings, assessment, and plan of care. Objective - Vital Signs Vital signs: Vital Signs Temp 98.7 F 10/05/20 13:32 Pulse 121 H 10/05/20 13:32 Resp 31 H 10/05/20 13:32 BP 113/63 10/05/20 13:32 Pulse Ox 99 10/05/20 13:00 Intake & Output 10/04/20 10/05/20 10/05/20 18:59 06:59 18:59 Intake Total 3805.070 684 547 Output Total 0 4000 Balance 3805.070 684 -3453 Weight 150.8 kg Intake: IV 88 33 130 0.9 Normal Saline 48 33 30 Pressure Bag Sodium Chloride 0.9% 1, 40 000 ml @ 10 mls/hr IV . Q24H [facility] Rx#:[id number] Sodium Chloride 0.9% 500 100 ml @ 10 mls/hr IV .Q24H [facility] Rx#:[id number] Intake, IV Titration 15.070 Amount Dexmedetomidine/0.9% NaCl 15.070 (Pmx) 400 mcg In Empty Bag 1 bag @ Titrate IV . Q0M [facility] Rx#:[id number] Tube Feeding 612 561 357 Hemodialysis 3000 Other 90 90 60 Output: Urine 0 0 Hemodialysis 4000 Other: Voiding Method Indwelling Catheter Indwelling Catheter ABP, PAP, CO, CI - Last Documented Arterial Blood Pressure 124/66 - Labs CBC & Chem 7: 10/05/20 07:25 10/05/20 07:25 Labs: Abnormal Lab Results - Last 24 Hours (Table) 10/04/20 10/04/20 10/05/20 Range/Units 17:59 23:51 05:50 WBC (3.8-10.6) k/uL RBC (4.30-5.90) m/uL Hgb (13.0-17.5) gm/dL Hct (39.0-53.0) % Plt Count (150-450) k/uL Neutrophils # (Manual) (1.3-7.7) k/uL Lymphocytes # (Manual) (1.0-4.8) k/uL Metamyelocytes # (Man) (0) k/uL Myelocytes # (Manual) (0) k/uL Nucleated RBCs (0-0) /100 WBC ABG Total CO2 26 H (19-24) mmol/L ABG O2 Saturation 98.2 H (94-97) % BUN (9-20) mg/dL Creatinine (0.66-1.25) mg/dL Glucose (74-99) mg/dL POC Glucose (mg/dL) 121 H 130 H (75-99) mg/dL Phosphorus (2.5-4.5) mg/dL Magnesium (1.6-2.3) mg/dL 10/05/20 10/05/20 10/05/20 Range/Units 06:46 07:25 07:25 WBC 13.8 H (3.8-10.6) k/uL RBC 2.58 L (4.30-5.90) m/uL Hgb 8.3 L (13.0-17.5) gm/dL Hct 25.5 L (39.0-53.0) % Plt Count 534 H (150-450) k/uL Neutrophils # (Manual) 11.87 H (1.3-7.7) k/uL Lymphocytes # (Manual) 0.97 L (1.0-4.8) k/uL Metamyelocytes # (Man) 0.28 H (0) k/uL Myelocytes # (Manual) 0.14 H (0) k/uL Nucleated RBCs 3 H (0-0) /100 WBC ABG Total CO2 (19-24) mmol/L ABG O2 Saturation (94-97) % BUN 77 H (9-20) mg/dL Creatinine 5.65 H (0.66-1.25) mg/dL Glucose 115 H (74-99) mg/dL POC Glucose (mg/dL) 122 H (75-99) mg/dL Phosphorus 7.2 H (2.5-4.5) mg/dL Magnesium 2.7 H (1.6-2.3) mg/dL 10/05/20 Range/Units 11:46 WBC (3.8-10.6) k/uL RBC (4.30-5.90) m/uL Hgb (13.0-17.5) gm/dL Hct (39.0-53.0) % Plt Count (150-450) k/uL Neutrophils # (Manual) (1.3-7.7) k/uL Lymphocytes # (Manual) (1.0-4.8) k/uL Metamyelocytes # (Man) (0) k/uL Myelocytes # (Manual) (0) k/uL Nucleated RBCs (0-0) /100 WBC ABG Total CO2 (19-24) mmol/L ABG O2 Saturation (94-97) % BUN (9-20) mg/dL Creatinine (0.66-1.25) mg/dL Glucose (74-99) mg/dL POC Glucose (mg/dL) 105 H (75-99) mg/dL Phosphorus (2.5-4.5) mg/dL Magnesium (1.6-2.3) mg/dL
--- NOTE | 2020-10-05 16:07 | OP ---
OPERATIVE REPORT PROCEDURE: Placement of the left radial arterial line. PREOPERATIVE DIAGNOSIS: Acute hypoxic respiratory failure secondary to acute cardiac arrest. POSTOPERATIVE DIAGNOSIS: Acute hypoxic respiratory failure secondary to acute cardiac arrest. ANESTHESIA: None deployed. DESCRIPTION OF PROCEDURE: The patient was placed in the supine position. The left wrist was prepared in a sterile fashion. The drapes were applied. The left radial artery was palpated, easily cannulated, and a guidewire was placed. A Cook catheter was inserted over the guidewire, and the guidewire was removed. Good blood flow, good waveform noted, no complications. The line was secured using 3.0 silk sutures. MMODL / IJN: [id number] /
--- NOTE | 2020-10-05 16:23 | P.PN ---
Subjective Progress Note Date: 10/05/20 Principal diagnosis: Respiratory failure Patient stable on the ventilator. He is awake and following commands. He is tolerating tube feeds at goal. No further bleeding from tracheostomy site. Objective - Vital Signs Vital signs: Vital Signs Temp 98.7 F 10/05/20 13:32 Pulse 116 H 10/05/20 15:39 Resp 26 H 10/05/20 15:00 BP 130/83 10/05/20 15:00 Pulse Ox 98 10/05/20 15:00 Intake & Output 10/04/20 10/05/20 10/05/20 18:59 06:59 18:59 Intake Total 3805.070 684 748 Output Total 0 4000 Balance 3805.070 684 -3252 Weight 150.8 kg 150.8 kg Intake: IV 88 33 148 0.9 Normal Saline 48 33 48 Pressure Bag Sodium Chloride 0.9% 1, 40 000 ml @ 10 mls/hr IV . Q24H [facility] Rx#:[id number] Sodium Chloride 0.9% 500 100 ml @ 10 mls/hr IV .Q24H [facility] Rx#:[id number] Intake, IV Titration 15.070 Amount Dexmedetomidine/0.9% NaCl 15.070 (Pmx) 400 mcg In Empty Bag 1 bag @ Titrate IV . Q0M [facility] Rx#:[id number] Tube Feeding 612 561 510 Hemodialysis 3000 Other 90 90 90 Output: Urine 0 0 Hemodialysis 4000 Other: Voiding Method Indwelling Catheter Indwelling Catheter Incontinent ABP, PAP, CO, CI - Last Documented Arterial Blood Pressure 100/66 - Exam Tracheostomy and PEG tube sites inspected. No bleeding. Bolster at PEG tube loose and slightly. - Labs CBC & Chem 7: 10/05/20 07:25 10/05/20 07:25 Labs: Abnormal Lab Results - Last 24 Hours (Table) 10/04/20 10/04/20 10/05/20 Range/Units 17:59 23:51 05:50 WBC (3.8-10.6) k/uL RBC (4.30-5.90) m/uL Hgb (13.0-17.5) gm/dL Hct (39.0-53.0) % Plt Count (150-450) k/uL Neutrophils # (Manual) (1.3-7.7) k/uL Lymphocytes # (Manual) (1.0-4.8) k/uL Metamyelocytes # (Man) (0) k/uL Myelocytes # (Manual) (0) k/uL Nucleated RBCs (0-0) /100 WBC ABG Total CO2 26 H (19-24) mmol/L ABG O2 Saturation 98.2 H (94-97) % BUN (9-20) mg/dL Creatinine (0.66-1.25) mg/dL Glucose (74-99) mg/dL POC Glucose (mg/dL) 121 H 130 H (75-99) mg/dL Phosphorus (2.5-4.5) mg/dL Magnesium (1.6-2.3) mg/dL 10/05/20 10/05/20 10/05/20 Range/Units 06:46 07:25 07:25 WBC 13.8 H (3.8-10.6) k/uL RBC 2.58 L (4.30-5.90) m/uL Hgb 8.3 L (13.0-17.5) gm/dL Hct 25.5 L (39.0-53.0) % Plt Count 534 H (150-450) k/uL Neutrophils # (Manual) 11.87 H (1.3-7.7) k/uL Lymphocytes # (Manual) 0.97 L (1.0-4.8) k/uL Metamyelocytes # (Man) 0.28 H (0) k/uL Myelocytes # (Manual) 0.14 H (0) k/uL Nucleated RBCs 3 H (0-0) /100 WBC ABG Total CO2 (19-24) mmol/L ABG O2 Saturation (94-97) % BUN 77 H (9-20) mg/dL Creatinine 5.65 H (0.66-1.25) mg/dL Glucose 115 H (74-99) mg/dL POC Glucose (mg/dL) 122 H (75-99) mg/dL Phosphorus 7.2 H (2.5-4.5) mg/dL Magnesium 2.7 H (1.6-2.3) mg/dL 10/05/20 Range/Units 11:46 WBC (3.8-10.6) k/uL RBC (4.30-5.90) m/uL Hgb (13.0-17.5) gm/dL Hct (39.0-53.0) % Plt Count (150-450) k/uL Neutrophils # (Manual) (1.3-7.7) k/uL Lymphocytes # (Manual) (1.0-4.8) k/uL Metamyelocytes # (Man) (0) k/uL Myelocytes # (Manual) (0) k/uL Nucleated RBCs (0-0) /100 WBC ABG Total CO2 (19-24) mmol/L ABG O2 Saturation (94-97) % BUN (9-20) mg/dL Creatinine (0.66-1.25) mg/dL Glucose (74-99) mg/dL POC Glucose (mg/dL) 105 H (75-99) mg/dL Phosphorus (2.5-4.5) mg/dL Magnesium (1.6-2.3) mg/dL Assessment and Plan (1) Acute respiratory failure Narrative/Plan: Continue supportive care. Monitor both catheter sites. I will be away for Sat and Thursday. Dr. Milton will be covering me. Please contact her if there are any issues. Current Visit: Yes Status: Acute Code(s): J96.00 - ACUTE RESPIRATORY FAILURE, UNSP W HYPOXIA OR HYPERCAPNIA SNOMED Code(s): 06266453
[2020-10-05] MEDS: PIPERACILLIN-TAZOBACTAM 3.375 GM in SODIUM CHLORIDE 0.9% 100 ML IVPB SCH (19:53)
[2020-10-05] MEDS: polyethylene glycoL 3350 17 GM POWD.PACK PO SCH (19:53)
--- NOTE | 2020-10-05 21:17 | P.PN ---
Subjective Progress Note Date: 10/05/20 (patient seen at 1530) Principal diagnosis: v-fib arrest Patient is a 59-year-old male with a history of hypertension, hypothyroidism, and obesity who presented to the ER after cardiac arrest in the field. He had multiple rounds of CPR, Epi, and Defib prior to obtaining ROSC. It appears that his down time in the field was approximately 30 minutes on review of the EMS run sheet. He was intubated and sedated he underwent a left heart cath with stent to the LAD and impella placement. Echocardiogram demonstrated an EF of less than 20% with global hypokenesis. He was determined to be in cardiogenic shock requiring dopamine, dobutamine, and levophed. He has required a Nimbex drip to maintain adequate ventilation until 09/20/20. He demonstrated shock liver on arrival. He has also had progressive anuric renal failure, nephrology was consulted HD was initiated on 09/21/20. He had one abnormal EEG with worsening of EEG on 09/20/20. We have been unable to wean sedation due to agitation and there are concerns for severe anoxic encephalopathy. His CXR was worsening and procalcitonin was elevated and he was started on zosyn with concerns for possible underlying PNA. He had not been awake or following commands with sedation holidays. On 09/22/20 he clear shook head no in response to questions. On 09/24 patient went into A fib with RVR during sedation holiday and amio gtt was started. CT head showed age- related atrophy without acute intracranial process. PG and trach were attempted on 09/29 but the patient desaturated. He has been on empiric zosyn for possible PNA. He was taken off propofolo due to hhypertriglyceridemia. Trach and peg were sucessfully placed on 10/01/20. He did have some postoperative bleeding around the trach site secondary to his IV heparin which was changed to subcutaneous heparin. He has had intermittent A. fib. Patient seen and examined at bedside. Intermittently following simple commands. Shakes head yes to pain General: non toxic, no distress, appears at stated age, obese Derm: warm, dry Head: atraumatic, normocephalic, symmetric Eyes: no lid lesion, anicteric sclera Mouth: no lip lesion, mucus membranes dry with lip cracking Cardiovascular: S1S2 reg, no murmur, positive posterior tibial pulse bilateral, Lungs: Course bilateral, no rhonchi, no rales , no accessory muscle use him on vent, trach in place Abdominal: soft, nontender to palpation, no guarding, no appreciable organomegaly, Ext: no gross muscle atrophy, diffuse anasarca, no contractures Neuro: wiggling toes possibly to commands. no squeezing hands, shakes head yes to pain Psych: Awake, appears comfortable, intermittently following commands, and does not appear anxious. V. fib arrest due to ST segment elevated myocardial infarction status post PCI to the circumflex and impella placement Acute systolic congestive heart failure Ischemic cardiomyopathy with ejection fraction less than 20% P. A fib - dopamine off 09/23/20, dobutamine off, levophed off by 09/22/20 - maintaine BP - cardio recs - ASA, Plavix - Amio - unable to tolerate BB/ACEI due to hypotension - lipitor on hold due to LFTs Generalized Dermatitis - solumedrol X 1 Hypoxic encephalopathy - neuro recs appreciated: unlikely for major quick recovery, plan for LTACH Acute kidney injury secondary to hypoperfusion and likely ATN Hyperphosphatemia Hyperkalemia - nephrology recs - HD today - Avoid nephrotoxic agents - maintain map >65 Acute hypoxic respiratory failure, Pneumonia possible gram negative completed treatment - off zosyn - pulm recs - pulm hygeine Anemia Thrombocytosis, reactive - component of acute blood loss anemia after trach - follow CBC - no indication for transfusion at this point in time. Morbid obesity with BMI 37.7 Shock liver, resolved Cardiogenic shock, resolved Hypothyroidism Thrombocytopenia, resolved Goal is for transfer to LTAC in the near future. Will need to be off of daily dialysis. Has been off of sedation today. Poor overall prognosis. DVT prophylaxis: heparin Discussed with: Nursing A total of 35 minutes was spent on the care of this complex patient more than 50% of the time was spent in counseling and care coordination. Objective - Vital Signs Vital signs: Vital Signs Temp 98.6 F 10/05/20 04:00 Pulse 128 H 10/05/20 07:43 Resp 29 H 10/05/20 07:00 BP 124/77 10/05/20 07:00 Pulse Ox 95 10/05/20 07:00 Intake & Output 10/04/20 10/05/20 10/05/20 18:59 06:59 18:59 Intake Total 3805.070 684 54 Output Total 0 0 Balance 3805.070 684 54 Weight 150.8 kg Intake: IV 88 33 3 0.9 Normal Saline 48 33 3 Pressure Bag Sodium Chloride 0.9% 1, 40 000 ml @ 10 mls/hr IV . Q24H [facility] Rx#:[id number] Intake, IV Titration 15.070 Amount Dexmedetomidine/0.9% NaCl 15.070 (Pmx) 400 mcg In Empty Bag 1 bag @ Titrate IV . Q0M [facility] Rx#:[id number] Tube Feeding 612 561 51 Hemodialysis 3000 Other 90 90 Output: Urine 0 0 Other: Voiding Method Indwelling Catheter Indwelling Catheter ABP, PAP, CO, CI - Last Documented Arterial Blood Pressure 113/66 - Labs CBC & Chem 7: 10/05/20 07:25 10/05/20 07:25 Labs: Abnormal Lab Results - Last 24 Hours (Table) 10/04/20 10/04/20 10/04/20 Range/Units 11:36 17:59 23:51 ABG Total CO2 (19-24) mmol/L ABG O2 Saturation (94-97) % POC Glucose (mg/dL) 130 H 121 H 130 H (75-99) mg/dL 10/05/20 10/05/20 Range/Units 05:50 06:46 ABG Total CO2 26 H (19-24) mmol/L ABG O2 Saturation 98.2 H (94-97) % POC Glucose (mg/dL) 122 H (75-99) mg/dL
[2020-10-05 23:54] LABS: Glucose,Whole Blood 123 mg/dL (75-99)
[2020-10-06] MEDS: IPRATROPIUM-ALBUTEROL 3 ML NEB INHALATION SCH ×5 (03:10→19:07)
[2020-10-06 03:37] LABS: Anisocytosis Slight; Basophils % (A) 0 %; Eosinophils # (A) 0.8 k/uL (0-0.7); Eosinophils % (A) 6 %; HCT 24.1 % (39.0-53.0); HGB 7.6 gm/dL (13.0-17.5); Hypochromasia Slight; Lymphocytes # (A) 0.9 k/uL (1.0-4.8); Lymphocytes % (A) 7 %; MCH 31.4 pg (25.0-35.0); MCHC 31.5 g/dL (31.0-37.0); MCV 99.7 fL (80.0-100.0); Macrocytosis Slight; Monocytes # (A) 0.5 k/uL (0-1.0); Monocytes % (A) 4 %; Neutrophils # (A) 9.9 k/uL (1.3-7.7); Neutrophils % (A) 81 %; Platelet Count 467 k/uL (150-450); RBC 2.42 m/uL (4.30-5.90); RDW 16.6 % (11.5-15.5); WBC 12.2 k/uL (3.8-10.6)
[2020-10-06 03:39] LABS: Albumin 2.3 g/dL (3.5-5.0); Calcium 8.5 mg/dL (8.4-10.2); Phosphorus 5.9 mg/dL (2.5-4.5); Potassium 3.8 mmol/L (3.5-5.1); Total Bilirubin 0.7 mg/dL (0.2-1.3)
[2020-10-06 05:24] LABS: ABG Base Excess 0.6 mmol/L; ABG HCO3 25 mmol/L (21-25); ABG Oxygen Saturation 98.7 % (94-97); ABG PCO2 40 mmHg (35-45); ABG PH 7.41 (7.35-7.45); ABG PO2 117 mmHg (83-108); ABG TCO2 27 mmol/L (19-24)
[2020-10-06 05:34] LABS: Allen Test Performed? no
[2020-10-06] MEDS: LEVOTHYROXINE 50 MCG TAB PO SCH (05:59)
[2020-10-06] MEDS: NOREPINEPHRINE 8 MG in SODIUM CHLORIDE 0.9% 250 ML IV SCH (05:59)
[2020-10-06] MEDS: PANTOPRAZOLE 40 MG/10 ML VIAL IVP SCH (08:50)
[2020-10-06] MEDS: CLOPIDOGREL 75 MG TAB PO SCH (08:50)
[2020-10-06] MEDS: ASPIRIN 81 MG PO SCH (08:50)
[2020-10-06] MEDS: AMIODARONE 200 MG TAB PO SCH ×2 (08:50→20:18)
[2020-10-06] MEDS: HEPARIN SODIUM,PORCINE/PF 5,000 UNIT/0.5 ML SYRINGE SQ SCH ×2 (08:50→15:49)
[2020-10-06] MEDS: METOPROLOL SUCCINATE (ER) 25 MG TAB.ER.24H PO SCH (08:50)
[2020-10-06] MEDS: CALCIUM ACETATE 667 MG TAB PO SCH ×4 (08:50→20:18)
[2020-10-06] MEDS: SODIUM BICARBONATE TAB 650 MG TAB PO SCH ×2 (08:51→20:18)
[2020-10-06] MEDS: PIPERACILLIN-TAZOBACTAM 3.375 GM in SODIUM CHLORIDE 0.9% 100 ML IVPB SCH ×2 (08:51→20:19)
--- NOTE | 2020-10-06 09:00 | P.PN ---
Subjective Progress Note Date: 10/06/20 Principal diagnosis: Acute coronary event/cardiopulmonary arrest This is a 59-year-old gentleman who was admitted to the hospital with acute ST segment elevation myocardial infarction complicated by cardiogenic shock and acute respiratory failure. The patient was seen this morning. He definitely more awake compared to before. Hemodynamically he is stable and not requiring vasopressors anymore. He continues to be in atrial fibrillation and he was started on Toprol-XL yest erday. In the past he was started on anticoagulation but he developed bleeding and for that reason anticoagulation on hold at this point. Overall the heart rate is controlled. Objective - Vital Signs Vital signs: Vital Signs Temp 99.3 F 10/06/20 08:00 Pulse 112 H 10/06/20 08:00 Resp 12 10/06/20 08:00 BP 104/72 10/06/20 08:00 Pulse Ox 98 10/06/20 08:00 Intake & Output 10/05/20 10/06/20 10/06/20 18:59 06:59 18:59 Intake Total 862 885 13 Output Total 4000 0 0 Balance -3138 885 13 Weight 150.8 kg Intake: IV 160 132 13 0.9 Normal Saline 60 42 3 Pressure Bag Sodium Chloride 0.9% 500 100 90 10 ml @ 10 mls/hr IV .Q24H [facility] Rx#:[id number] Tube Feeding 612 663 Other 90 90 Output: Urine 0 0 0 Hemodialysis 4000 Other: Voiding Method Incontinent Incontinent # Voids 0 # Bowel Movements 1 ABP, PAP, CO, CI - Last Documented Arterial Blood Pressure 102/86 - Constitutional General appearance: Present: no acute distress - Respiratory Respiratory: bilateral: diminished - Cardiovascular Rhythm: irregularly irregular - Labs CBC & Chem 7: 10/06/20 03:03 10/06/20 03:03 Labs: Abnormal Lab Results - Last 24 Hours (Table) 10/05/20 10/05/20 10/05/20 Range/Units 07:25 07:25 11:46 WBC 13.8 H (3.8-10.6) k/uL RBC 2.58 L (4.30-5.90) m/uL Hgb 8.3 L (13.0-17.5) gm/dL Hct 25.5 L (39.0-53.0) % RDW (11.5-15.5) % Plt Count 534 H (150-450) k/uL Neutrophils # (1.3-7.7) k/uL Neutrophils # (Manual) 11.87 H (1.3-7.7) k/uL Lymphocytes # (1.0-4.8) k/uL Lymphocytes # (Manual) 0.97 L (1.0-4.8) k/uL Eosinophils # (0-0.7) k/uL Metamyelocytes # (Man) 0.28 H (0) k/uL Myelocytes # (Manual) 0.14 H (0) k/uL Nucleated RBCs 3 H (0-0) /100 WBC ABG pO2 (83-108) mmHg ABG Total CO2 (19-24) mmol/L ABG O2 Saturation (94-97) % Sodium (137-145) mmol/L BUN 77 H (9-20) mg/dL Creatinine 5.65 H (0.66-1.25) mg/dL Glucose 115 H (74-99) mg/dL POC Glucose (mg/dL) 105 H (75-99) mg/dL Phosphorus 7.2 H (2.5-4.5) mg/dL Magnesium 2.7 H (1.6-2.3) mg/dL AST (17-59) U/L Alkaline Phosphatase (38-126) U/L Total Protein (6.3-8.2) g/dL Albumin (3.5-5.0) g/dL 10/05/20 10/06/20 10/06/20 Range/Units 23:52 03:03 03:03 WBC 12.2 H (3.8-10.6) k/uL RBC 2.42 L (4.30-5.90) m/uL Hgb 7.6 L (13.0-17.5) gm/dL Hct 24.1 L (39.0-53.0) % RDW 16.6 H (11.5-15.5) % Plt Count 467 H (150-450) k/uL Neutrophils # 9.9 H (1.3-7.7) k/uL Neutrophils # (Manual) (1.3-7.7) k/uL Lymphocytes # 0.9 L (1.0-4.8) k/uL Lymphocytes # (Manual) (1.0-4.8) k/uL Eosinophils # 0.8 H (0-0.7) k/uL Metamyelocytes # (Man) (0) k/uL Myelocytes # (Manual) (0) k/uL Nucleated RBCs (0-0) /100 WBC ABG pO2 (83-108) mmHg ABG Total CO2 (19-24) mmol/L ABG O2 Saturation (94-97) % Sodium 135 L (137-145) mmol/L BUN 69 H (9-20) mg/dL Creatinine 5.25 H (0.66-1.25) mg/dL Glucose 110 H (74-99) mg/dL POC Glucose (mg/dL) 123 H (75-99) mg/dL Phosphorus 5.9 H (2.5-4.5) mg/dL Magnesium (1.6-2.3) mg/dL AST 178 H (17-59) U/L Alkaline Phosphatase 194 H (38-126) U/L Total Protein 5.0 L (6.3-8.2) g/dL Albumin 2.3 L (3.5-5.0) g/dL 10/06/20 Range/Units 05:23 WBC (3.8-10.6) k/uL RBC (4.30-5.90) m/uL Hgb (13.0-17.5) gm/dL Hct (39.0-53.0) % RDW (11.5-15.5) % Plt Count (150-450) k/uL Neutrophils # (1.3-7.7) k/uL Neutrophils # (Manual) (1.3-7.7) k/uL Lymphocytes # (1.0-4.8) k/uL Lymphocytes # (Manual) (1.0-4.8) k/uL Eosinophils # (0-0.7) k/uL Metamyelocytes # (Man) (0) k/uL Myelocytes # (Manual) (0) k/uL Nucleated RBCs (0-0) /100 WBC ABG pO2 117 H (83-108) mmHg ABG Total CO2 27 H (19-24) mmol/L ABG O2 Saturation 98.7 H (94-97) % Sodium (137-145) mmol/L BUN (9-20) mg/dL Creatinine (0.66-1.25) mg/dL Glucose (74-99) mg/dL POC Glucose (mg/dL) (75-99) mg/dL Phosphorus (2.5-4.5) mg/dL Magnesium (1.6-2.3) mg/dL AST (17-59) U/L Alkaline Phosphatase (38-126) U/L Total Protein (6.3-8.2) g/dL Albumin (3.5-5.0) g/dL Assessment and Plan Assessment: Assessment #1 acute coronary event #2 cardiopulmonary arrest #3 severe cardiomyopathy #4 persistent atrial fibrillation #5 multiple comorbid conditions Plan #1 continue the current dose of beta rhonda #2 continue holding anticoagulation for now #3 follow-up with the patient
--- NOTE | 2020-10-06 09:00 | PN ---
PROGRESS NOTE The patient is seen for followup for acute kidney injury. Patient remains hemodialysis dependent. Overall general condition seems to have improved. Patient remains on the vent. He is awake. He is following commands. PHYSICAL EXAMINATION: On examination today, blood pressure 104/72, heart rate 112 per minute, he is afebrile. Examination of the heart S1, S2. Examination of the lungs, bilateral breath sounds are heard. Abdomen is soft, nontender. Examination of the lower extremities shows edema 2 to 3+ bilaterally with significant scrotal edema. LAB: Show sodium 135, potassium 3.8, chloride 100, BUN of 5.25. ASSESSMENT: 1. Acute kidney injury, oliguric ATN secondary to hypotension, cardiac arrest, currently hemodialysis dependent mostly secondary to volume overload. Patient is being done on a daily basis. 2. Volume overload slowly improving. 3. Hyperkalemia currently improved. 4. Acute hypoxic respiratory failure. 5. Status post cardiac arrest. 6. Coronary artery disease status post coronary artery stent placement. 7. Cardiomyopathy, ejection fraction 20-25%. PLAN: Hemodialysis today. Will change to a 3K bath and next treatment will be on Thursday. MMODL / IJN: [id number] /
--- NOTE | 2020-10-06 10:00 | XR ---
EXAMINATION TYPE: XR chest 1V portable DATE OF EXAM: 10/06/2020 COMPARISON: 10/05/2020 INDICATION: Ventilated difficulty breathing TECHNIQUE: Single frontal view of the chest is obtained. FINDINGS: The heart size is a. The pulmonary vasculature is normal. Right perihilar infiltrate is present. This is improved from comparison. Catheters present on the rig ht with the tips in the distal superior vena cava region. Tracheostomy tube is in the midline. IMPRESSION: 1. Improving right perihilar infiltrate likely related to pulmonary edema. 2. Mild cardiomegaly. 3. Catheters discussed above
[2020-10-06] MEDS ORDERED: ALTEPLASE 2 MG VIAL (CATHFLO) IV STA (11:23)
--- NOTE | 2020-10-06 11:52 | P.PN ---
Subjective Progress Note Date: 10/06/20 Principal diagnosis: Cardiac arrest and acute hypoxic respiratory failure secondary to cardiac arrest. 59-year-old male patient, post cardiac arrest, V. fib arrest, who is admitted intensive care unit since 09/17/2020 and the patient is being seen in follow-up today on 09/25/2020. The patient is still intubated on a mechanical ventilator. The patient was a V. fib arrest, received CPR on the scene, defibrillated, received epinephrine and was brought into us in his been in the intensive care unit setting. He turned out to be a case of a ST segment elevation myocardial infarction. He received immediate cardiac catheterization and stenting of the circumflex artery. The patient this morning is sedated with propofol running at 60 mcg/kg per minute. Is also on fentanyl 1 mcg/mg/h. He is off pressors. His cardiac rhythm is sinus with a left bundle branch block pattern. Over the past 24 hours, the patient was given dobutamine to augment his cardiac output. He went into atrial fibrillation with RVR. He was given a bolus of amiodarone and he is currently back into normal sinus rhythm. In terms of his vent support, the patient remains on mechanical ventilator. At this point in time, the patient is an assist-control mode at the rate of 28 and a tidal volume of 500 and FiO2 of 50% with a PEEP of 10. The blood gases from today showing a pH of 7.31 with a pCO2 of 35 and pO2 of 122. He is in renal failure. He is receiving dialysis periodically. He received dialysis on 09/20/2020 and 09/21/2020. Dialysis was attempted yesterday, unable to complete as the patient's catheter was kinked and Changes will be done today surgery. He will probably end up hav ing another session of hemodialysis today. When the process of getting the patient sedation holiday in his neurologic function will be reevaluated. CAT scan of the brain another EEG is in progress for today. He is on Levemir insulin for blood sugar control. He is on vital high protein at the rate of 27 mL an hour. No abdominal distention. No nausea or vomiting. No fever or chills. Chest x-ray is showing cardiomegaly with small bilateral pleural effusions on some atelectatic changes in lung bases bilaterally. Orogastric tube is in a good location. He does have small pleural effusions. There is stable cardiomegaly. In terms of his blood work, the white cell count is at 9.2 with a hemoglobin of 9.6. Sodium is at 129, potassium at 5.3, serum bicarbonate is 14 with a BUN of 78 and a creatinine of 9.67. On today's evaluation of 09/26/2020, the patient is being given another sedation holiday. The process yesterday got interrupted as the patient became basically a mechanical ventilator and the patient went into atrial fibrillation with rapid ventricular response. At that point, the patient was placed back on sedation with accommodation propofol and fentanyl and he was kept on the sedation throughout the day. This morning, the plan is to get him off the sedation again and utilizing Precedex if needed. A repeat CAT scan of the brain was ordered for today and the CAT scan showed age-related atrophy and chronic small vessel ischemic changes without any acute intracranial process. No evidence of any acute bleeding. On today's evaluation, the patient is grimacing to deep painful stimulation that was applied to his fingers and toes. For now, the patient is calm and comfortable. He is synchronous with the mechanical ventilator. He is on assist control mode of ventilation, at the rate of 28 and a tidal volume of 500 and FiO2 of 40% with a PEEP of 5. The blood gases from today showed a pH of 7.29 with a pCO2 of 41 and pO2 of 75. This was on FiO2 of 40%. The patient's chest x-ray showed stable findings along with some pulmonary a congestion and scattered infiltrates and interstitial edema. The orotracheal tube was in a good location. NG tube was also in a good location. The patient is currently in normal sinus rhythm. He is on amiodarone drip at 1 mg per minute and based on cardiology recommendation, we'll continue the amiodarone drip at a mainten ance of 1 mg per minute. A minimal amount of urine output. The patient remains in acute kidney injury. Creatinine is up to 7.98. Underwent hemodialysis yesterday. A another session of hemodialysis will be given to him today. He is afebrile. He is receiving enteral feeding for nutritional support. He continues to be on a combination of aspirin and Plavix. He is on no pressors for now. Had a discussion with the . Updated her on his condition. There is a concern of ongoing hypoxic encephalopathy. Meanwhile, the patient remains on Levemir insulin for blood sugar control in addition a slight scale insulin coverage. The patient is receiving vital high protein which is currently at goal. Current cardiac rhythm is sinus with a bundle-branch block pattern. 09/27/2020, I'm seeing the patient for a follow-up. Note that the patient is a case of a cardiac arrest with a STEMI requiring emergent cardiac catheterization and stenting of the circumflex. During the course of his treatment, the patient required insertion and removal of an impeller device. In any rate, there was a concern of the patient was having anoxic encephalopathy. Yesterday, I took him off the fentanyl and the propofol and I switched him to Precedex. As the weaning was being done, the patient was given a sedation holiday and he got to the point where he was awake and following some simple commands. He would open up his eyes. He would move his toes and fingers upon demand. This was also confirmed by neurology. As such, we believe that there is adequate neurologic functions. Nevertheless, as the patient was taken off the sedation, he required more sedation he was placed on Precedex and ultimately were unable to control his restlessness and the patient was having increased tachypnea tachycardia and episodes of atrial fibrillation with rapid ventricular response. He was also desaturating as the patient was becoming asynchronous with a mechanical ventilator. I had to put him back on propofol is currently running at 45 mcg/kg per minute. He stayed on propofol throughout the night. Meanwhile, he remains on assist control mode at a rate of 22 with a tidal volume of 500 and FiO2 of 70% with a PEEP of 10. The blood gases from today showing a pH of 7.35 with a pCO2 of 40 and pO2 of 129. The chest x-ray showing development of a right lower lobe pulmonary infiltrate. ET tube is in a good location. There is a suspicion of a right lower lobe pneumonia. White cell count is up to 15.2. Mild dynamically, he is on no pressors. He is back in normal sinus rhythm. He remains on amiodarone 1 mg per minute per snow removal supervisor recommendation. He does have a bundle-branch block pattern. A repeat echocardiogram was done today and his EF is still poor, less than 20%. He remains in renal failure. He is requiring daily hemodialysis. Underwent hemodialysis yesterday with ultrafilt ration of 500 mL. He continues to have extensive swelling in the upper and lower extremity and in his scrotum. On today's evaluation, he is also noted to have diminished pulses in lower extremities bilaterally. Doppler significant drop in the right foot. Right foot is cold and an same time there is some skin mottling and cyanosis in his toes mainly on the right. As mentioned, the right foot is cold yet Doppler signals are present. His previously inserted and patella was in the right femoral artery. There is also some rash developing over his upper thighs and abdomen and trunk and shoulders and upper extremities. He is receiving enteral feeding for nutritional support and is currently on vital high protein running at 23 mL an hour. Urine output is 5 mL an hour. 09/28/2020, the patient is being seen for a follow-up. He has been kept on propofol 45 mg/kg/m. We were unable to control his condition off sedation. He went on Precedex and he was still quite restless and agitated and at that point he was switched again to propofol. This morning is much more comfortable. Nevertheless, blood was noted to be lipemic. We're going to check her triglyceride levels and switch this patient back to Precedex. Note that while on Precedex, the patient was able to follow some simple commands. The ultimate plan is to proceed with a pack and a tracheostomy tube insertion and this is scheduled to be done tomorrow. Meanwhile, the patient underwent hemodialysis today. A total of 1.5 L of ultrafiltration was performed. His cardiac rhythm remains atrial fibrillation and amiodarone is running at 1 mg per minute. He remains on a mechanical ventilator on assist control mode with a rate of 22 and tidal volume of 550 FiO2 of 60% with a PEEP of 10. Blood gas showed a pH of 7.37 with a pCO2 of 34 and pO2 of 100. The patient is also receiving enteral feeding for nutritional support with Nepro 20 mL an hour. Urine output is minimal. The patient had some ischemic changes in the lower extremity especially on the right. On today's evaluation, the right foot is warmer compared to yesterday and there are Doppler signals bilaterally. Arterial Dopplers abdominal pain and the results of the pending in the patient is being seen by vascular surgery. He is on no pressors for now. On today's chest x- ray, there is the blood of the right lung consolidation. The patient was prod ucing purulent mucus yesterday. Sputum cultures have been sent. The patient was started on IV Zosyn. Rest or secretions improved since yesterday. White cell count currently is at 14.8 with hemoglobin of 9.4. 09/29/2020, the patient was taken to the operating room for a PEG and trach and the patient was brought back without having the procedure done. Note that the patient was quite stable earlier this morning. He was on Precedex which was running at 0.6 mcg/kg/h. He was able to respond and follows some simple commands. By the time he arrived to the operating room, the patient was placed on the operating room table and he became hypoxic and he developed oxygen desaturation was also stop in the mid 80s. At that point, the procedure was canceled as the patient was transferred back into the intensive care unit. I have an ICU. Currently is on Precedex at 0.7 mcg/kg/h. He was also given Dilaudid 1 mg IV. He is resting comfortably on a mechanical ventilator for now. He is on assist control mode at a rate of 20 with a tidal volume of 600 and FiO2 of 17 with a PEEP of 8. His current pulse ox is 93%. Chest x-ray from today is showing cardiomegaly. There is pulmonary vascular congestion. There is also consolidation of the right lung which we suspected this was related to a n underlying pneumonia. There is also bibasilar infiltrates. No pneumothorax. No pleural effusion. ET tube was in a good location. His sputum productions with orotracheal tube has subsided and the cultures that were collected earlier has not resulted in to have positive growth. The patient remains on IV Zosyn as an empiric antibiotic coverage. He is afebrile for now. As mentioned earlier, he is able to communicate once sedation is off and wheezing. Neurologically the patient is intact. In terms of hemodynamics, current rhythm is sinus. He has a bundle-branch block pattern, left-sided and the patient remains on amiodarone 1 mg per minute. His anticoagulation with IV heparin was held as the patient was being considered for a PEG and trach today. I may restart anticoagulation as long as we have a PTT breathing on this patient. Note that his triglyceride levels was up to 987. He was taken off the propofol. He is supposed to undergo dialysis today. He is able to undergo dialysis without any major issues. His BUN is at 87 with a creatinine of 7.2. His sodium level is at 131 with a potassium level of 5.5. Hemoglobin today is at 8.8 with a white cell count of 13.0. The enteral feeding has been held this morning in preparation for PEG and trach. I'm going to start him back on feeding today which is in the form of Nepro at the rate of 23 mL an hour. 2020, the patient is being seen for a follow-up. The plan is to proceed with a PEG tube a tracheostomy tube insertion tomorrow. The procedure yesterday got complicated as the patient desaturated and operate. This morning, he is on a combination of Precedex and fentanyl drip for sedation. Precedex is running at 0.7 mcg/kg/h and fentanyl is running at 2 mcg/kg/h. He still opens up his eyes. He is partially responsive to painful stimulation and tactile stimulation. Meanwhile, he remains on a mechanical ventilator. He remains on assist control mode at the rate of 20 with a tidal volume of 600 and FiO2 of 50% with a PEEP of 8. Blood gases from this morning show a pH of 7.39 with a pCO2 of 36 and pO2 of 88. No significant orotracheal secretions. Awaiting follow-up chest x-ray from today. Meanwhile, the sputum culture came back negative and the patient was covered empirically with IV Zosyn. He is currently off the amiodarone drip. Cardiac rhythm still in atrial fibrillation which is under better control. He remains also on IV heparin. Note that he goes back and forth between sinus rhythm and atrial fibrillation. His ejection fraction is less than 20%. He is tolerating his enteral feeding for nutritional support. He is afebrile. Potassium today's of 5.7 and this will be treated medically and the patient underwent his hemodialysis yesterday. No dialysis to follow first thing in the morning. BUN is at 84 with a creatinine of 6.4. In regards to his high potassium, he'll be given 10 units of regular insulin along with D50 in addition to 4 bicarb doses of 50 mEq. We'll monitor his potassium level. Patient was reevaluated today on 10/01/2020, remains in the ICU, intubated and mechanically ventilated. Patient is on volume control plus with volume of 600, FiO2 50%, inspiratory time of 0.9 seconds, PEEP at 8, rate is at 20. Vent changes were made today, increase rate to 26 decreased I'll volume to 550 and decreased inspiratory time to 0.80. Patient remains on fentanyl at 2 mcg/kg/h, he is on Precedex at 0.7 mcg/kg/m. He is also on heparin but presently off since the patient is going for tracheostomy and PEG tube placement. He is off norepinephrine. ABG this morning showed a pO2 of 88 pCO2 of 41 pH of 7.34. He is in atrial fibrillation with a rate of 106. Patient is on hemodialysis, received dialysis today and 2 L were off. Last hemodialysis was 09/28 and 1.8 L were taken off. He is empirically on Zosyn which may have to be discontinued, patient had over 11 days of Zosyn. And no clear-cut culture to treat. Chest x- ray showed indwelling tubes and catheters are in place. Scattered perihilar infiltrates and bibasilar infiltrates are the same. Pleural effusion is also unchanged. Potassium today is 5.7. WBC is 4.8 hemoglobin is 7.8. Blood sugar is 87. BUN is 111 creatinine 7.46. Liver enzymes are elevated with ALT of 26 AST of 396 alkaline phosphatase of 232. Patient was reevaluated today on 10/02/2020, remains in the ICU intubated and mechanically ventilated. Patient underwent uneventful tracheostomy and PEG tube placement yesterday. Ventilator settings are assist control rate of 26 tidal volume is 550 he is on volume control plus, FiO2 50% and PEEP is at 8. ABG showed a pO2 of 97 pCO2 of 38 pH of 7.37. Patient remains on Precedex, and 0.7, norepinephrine at 0.02, fentanyl 2 mcg/kg/h, and IV fluid at KVO. Patient is receiving dialysis during my evaluation. He is hemodynamically marginal, requiring norepinephrine. My plan is to cut down on the fentanyl, hopefully that will improve his blood pressure today. Yesterday he had 2 L off after hemodialysis, and so far dialysis seems to be ongoing again today. Neurologically the patient is about the same. He opens eyes but does not follow any instructions, does not follow any commands. He grimaces to painful stimuli. Labs today showed WBC count of 13.4 hemoglobin is 8.1. Potassium is 6.3 and that would be corrected by hemodialysis. Blood sugar is 85. Patient was rest arted back on heparin drip today. It was on hold for his tracheostomy and PEG tube placement. Chest x-ray showed unchanged hazy airspace opacities and but may be a small left pleural effusion Reevaluated today on 10/03/2020, remains in the ICU, intubated and mechanically ventilated. Volume control plus with tidal volume 550, rate of 26 FiO2 50% PEEP at 8 ABG showed a pO2 of 75 pCO2 42 pH of 7.36. Blood pressure is 27. Patient remains on Precedex and on fentanyl which I plan to discontinue today. Patient is also on heparin. Remains clinically about the same, opens eyes, but not following any instructions or any commands. Chest x-ray continues to show some evidence of interstitial edema and fluid overload, patient is receiving hemodialysis during my evaluation. And the plan is to remove 2 L at least. Has been receiving dialysis on a daily basis. He is in atrial fibrillation rate of 112. He is hemodynamically stable, not requiring any pressors at this time. Mentation is basically about the same, and I have not seen any change in the last 3 days. Supposedly his EEG showed metabolic encephalopathy and swallowing patient continues to be followed by neurology regarding his anoxic brain injury. Absent today were all reviewed. PTT is 40.5 WBC count is 16.1 hemoglobin 8.29. Normal renal profile showed a BUN of 87 creatinine 6.05. Liver enzymes remain elevated. His AST is 576 alkaline phosphatase is 223. Reevaluated today on 10/04/20, remains in the ICU, intubated and mechanically ventilated. He is on assist control rate of 26, volume control +550 FiO2 50% and PEEP of 8. ABG showed a pO2 of 77 pCO2 of 37 pH of 7.40. Patient is off all narcotics and sedatives, he is also off Precedex. And today he is actually making some neurological improvement. Patient is able to follow simple instructions like squeezing hands, sticking out tongue, closing eyes, he seems to be comprehending what he is being controlled. But he is generally weak. This is the best I have seen him in the last 4 days. Patient will remain off narcotics and sedatives for today. His ventilator settings remained the same unchanged. Chest x-ray continues to show similar changes as before with some component of fluid overload, patient is still receiving dialysis. He is off antibiotics at present. Remains on tube feeding using the Nepro. I started him today on subcu heparin, he was on IV heparin yesterday, however he developed bleeding around the tracheostomy site. Hence heparin was placed on hold but today I'm placing him on subcu heparin. Patient is also on Plavix. Remains in atrial fibrillation. Patient will be undergoing hemodialysis again, and hopefully will remove another 3 L of fluid removed as removed yesterday. WBC count is 14.3 hemoglobin is 7.7. Electrolytes are normal renal profile is abnormal patient is on hemodialysis Reevaluated today on 10/05/2020, patient remains in the ICU, intubated and mechanically ventilated. Patient is on assist control rate of 26, volume control +550 FiO2 50% and PEEP remains at 8 .I cut down his FiO2 to 45%. ABG showed a pO2 of 106 pCO2 of 38 pH of 7.43. Patient remains awake, remains hemodynamically stable not requiring any pressors or inotropes. His chest x-ray showed slight worsening ofdisease in the right lower lobe, not clear whether some of it is fluid related and or infection. Hence I'm recommending that we restart him back on Zosyn. I have also recommended that we discontinue his central line today. Patient has a PICC line in place, and he has a dialysis catheter in place. I did place a new arterial line today. Chest x-ray was reviewed. And as noted earlier. Labs were all reviewed. Patient is undergoing hemodialysis again today. Over the last couple of days, significant improvement noted in his overall neurological status. Remains off narcotics and sedatives. Reevaluated today on 10/06/2020, remains in the ICU, intubated and mechanically ventilated, patient remains on the same ventilator settings, however today I cut down his PEEP to 5 instead of 8, and I kept him on 45% FiO2. Vent settings are volume control +550 rate of 2645% FiO2 and PEEP of 8 cut it down to 5. His blood gases showed a pO2 of 117 pCO2 40 pH of 7.40. Patient is receiving hemodialysis this morning while I was examining him. Plan to remove hopefully 4 L of fluids today. A shunt remains edematous and swollen, chest x-ray showing improvement in his edema and presumptive right lower lobe airspace disease. Remains on Zosyn, WBC count is trending down. Today I plan to give him at least a trial of pressure support of 14 and CPAP of 5. Patient remains off narcotics and sedatives. He is appropriate. Following all instructions, and he is becoming more and more alert on a daily basis. WBC count today is 12.2 hemoglobin is 7.6. Basic metabolic profile is normal BUN is 69 creatinine 5.25. Objective - Vital Signs Vital signs: Vital Signs Temp 99.3 F 10/06/20 08:00 Pulse 96 10/06/20 11:28 Resp 8 L 10/06/20 11:00 BP 130/77 10/06/20 11:00 Pulse Ox 100 10/06/20 11:00 Intake & Output 10/05/20 10/06/20 10/06/20 18:59 06:59 18:59 Intake Total 862 885 286 Output Total 4000 0 0 Balance -3138 885 286 Weight 150.8 kg Intake: IV 160 132 52 0.9 Normal Saline 60 42 12 Pressure Bag Sodium Chloride 0.9% 500 100 90 40 ml @ 10 mls/hr IV .Q24H [facility] Rx#:[id number] Tube Feeding 612 663 204 Other 90 90 30 Output: Urine 0 0 0 Hemodialysis 4000 Other: Voiding Method Incontinent Incontinent Incontinent # Voids 0 # Bowel Movements 1 ABP, PAP, CO, CI - Last Documented Arterial Blood Pressure 122/70 - Exam Physical Exam: Revealed 59-year-old white male intubated and mechanically ventilated, continues to be alert and follows simple instructions. Head: Atraumatic, normocephalic. Tracheostomy is intact. . HEENT:[Neck is supple.] [No neck masses.] [No thyromegaly.] [No JVD.] The left, EOMI, nonicteric, moist mucous membranes. Chest: [Symmetrical chest expansion, minimal crackles at the bases persist. Cardiac Exam: Irregular irregular rhythm, 2/6 systolic murmur thought the precordium. Distant S1 and S2. Abdomen: [Obese, Soft, nontender, no megaly, no rebound, no guarding, negative bowel sounds. Scrotal edema is slightly improved. Extremities: [No clubbing, 3+ bipedal edema, no cyanosis.] Diminished distal pulses bilaterally.. Neurological Exam: Awake, follows simple instructions, but generally weak. Skin: No rashes. Psychiatric: Depressed mood, flat affect, follows all simple instructions today. - Labs CBC & Chem 7: 10/06/20 03:03 10/06/20 03:03 Labs: Abnormal Lab Results - Last 24 Hours (Table) 10/05/20 10/05/20 10/06/20 Range/Units 11:46 23:52 03:03 WBC 12.2 H (3.8-10.6) k/uL RBC 2.42 L (4.30-5.90) m/uL Hgb 7.6 L (13.0-17.5) gm/dL Hct 24.1 L (39.0-53.0) % RDW 16.6 H (11.5-15.5) % Plt Count 467 H (150-450) k/uL Neutrophils # 9.9 H (1.3-7.7) k/uL Lymphocytes # 0.9 L (1.0-4.8) k/uL Eosinophils # 0.8 H (0-0.7) k/uL ABG pO2 (83-108) mmHg ABG Total CO2 (19-24) mmol/L ABG O2 Saturation (94-97) % Sodium (137-145) mmol/L BUN (9-20) mg/dL Creatinine (0.66-1.25) mg/dL Glucose (74-99) mg/dL POC Glucose (mg/dL) 105 H 123 H (75-99) mg/dL Phosphorus (2.5-4.5) mg/dL AST (17-59) U/L Alkaline Phosphatase (38-126) U/L Total Protein (6.3-8.2) g/dL Albumin (3.5-5.0) g/dL 10/06/20 10/06/20 Range/Units 03:03 05:23 WBC (3.8-10.6) k/uL RBC (4.30-5.90) m/uL Hgb (13.0-17.5) gm/dL Hct (39.0-53.0) % RDW (11.5-15.5) % Plt Count (150-450) k/uL Neutrophils # (1.3-7.7) k/uL Lymphocytes # (1.0-4.8) k/uL Eosinophils # (0-0.7) k/uL ABG pO2 117 H (83-108) mmHg ABG Total CO2 27 H (19-24) mmol/L ABG O2 Saturation 98.7 H (94-97) % Sodium 135 L (137-145) mmol/L BUN 69 H (9-20) mg/dL Creatinine 5.25 H (0.66-1.25) mg/dL Glucose 110 H (74-99) mg/dL POC Glucose (mg/dL) (75-99) mg/dL Phosphorus 5.9 H (2.5-4.5) mg/dL AST 178 H (17-59) U/L Alkaline Phosphatase 194 H (38-126) U/L Total Protein 5.0 L (6.3-8.2) g/dL Albumin 2.3 L (3.5-5.0) g/dL Assessment and Plan Assessment: Impression: Acute hypoxic respiratory failure secondary to cardiac arrest. Patient presented with V. fib cardiac arrest. Status post cardiac catheterization and stenting of the circumflex Severe ischemic cardiomyopathy and LV dysfunction. Hypoxic encephalopathy. Suspect anoxic brain injury. Slight improvement noted today in his mental status Acute kidney injury secondary to acute tubular necrosis and cardiac arrest. Patient is requiring hemodialysis. Shock liver. Paroxysmal atrial fibrillation. Restarted back on heparin today. Hypothyroidism. History of depression. Fluid overload with extensive edema in lower and upper extremities as well as scrotal swelling noted. Related to renal failure and acute kidney injury, patient is improving with dialysis. Status post tracheostomy and PEG tube placement on 10/01/2020. Recommendation: Continue ventilatory support. Cut down PEEP to 8, we'll try weaning trials with a pressure support of 14 and CPAP today. Nutritional support/enteral feeding to continue. Patient is being fed via PEG tube Continue subcu heparin. Continue with PICC line, flush PICC line as needed as per protocol. Continue hemodialysis. Continue GI and DVT prophylaxis. Pressure support CPAP trial today. Critical care time is over 30 minutes. We'll continue to follow, Time with Patient: Greater than 30
[2020-10-06 12:30] LABS: Glucose,Whole Blood 103 mg/dL (75-99)
--- NOTE | 2020-10-06 13:50 | P.PN ---
Subjective Progress Note Date: 10/06/20 CHIEF COMPLAINT: Vent-dependent respiratory failure HISTORY OF PRESENT ILLNESS: The patient is a 47-year-old male status post tracheostomy PEG tube placement. He sitting up in a chair. No history of port still mild oozing from his trach site. Heparin has been adjusted to 5000 units every 8 hours. ROS: Patient has trach. No recent chest pain. PHYSICAL EXAM: VITAL SIGNS: Reviewed CONSTITUTIONAL: Well developed and in no acute distress. EYES: Conjuctivae without sclera icterus. Extraocular movements grossly intact. HEAD, EARS, NOSE, THROAT: Moist buccal mucosa. Head is atraumatic, normoc ephalic. Hears conversational speech. No nasal drainage. NECK: Trach site intact. Serosanguineous drainage along trach site. No active venous or arterial bleeding. RESPIRATORY: Non-labored respirations and equal bilateral excursions. CARDIOVASCULAR: Palpable 2+ radial pulses. ABDOMEN: Protuberant. MUSCULOSKELETAL: No gross deformity of the lower extremities noted. No clubbing. No cyanosis. SKIN: Good skin turgor. Well perfused. NEUROLOGIC: Cranial nerves II through XII grossly intact. No focal or lateralizing signs. PSYCH: Appropriate affect. Alert and oriented to person, place and time. CLINICAL LABS: Reviewed. Hemoglobin is down 8.3 -7.6. White count down 13.8- 12.2. ASSESSMENT: 1. Vent dependent respiratory failure 2. Tracheostomy with recent bleeding PLAN: 1. Monitor hemoglobin 2. Continue trach care Objective - Vital Signs Vital signs: Vital Signs Temp 99.3 F 10/06/20 08:00 Pulse 91 10/06/20 09:00 Resp 24 10/06/20 09:00 BP 107/74 10/06/20 09:00 Pulse Ox 98 10/06/20 09:00 Intake & Output 10/05/20 10/06/20 10/06/20 18:59 06:59 18:59 Intake Total 862 885 158 Output Total 4000 0 0 Balance -3138 885 158 Weight 150.8 kg Intake: IV 160 132 26 0.9 Normal Saline 60 42 6 Pressure Bag Sodium Chloride 0.9% 500 100 90 20 ml @ 10 mls/hr IV .Q24H [facility] Rx#:[id number] Tube Feeding 612 663 102 Other 90 90 30 Output: Urine 0 0 0 Hemodialysis 4000 Other: Voiding Method Incontinent Incontinent # Voids 0 # Bowel Movements 1 ABP, PAP, CO, CI - Last Documented Arterial Blood Pressure 121/69 - Labs CBC & Chem 7: 10/06/20 03:03 10/06/20 03:03 Labs: Abnormal Lab Results - Last 24 Hours (Table) 10/05/20 10/05/20 10/05/20 Range/Units 07:25 07:25 11:46 WBC 13.8 H (3.8-10.6) k/uL RBC 2.58 L (4.30-5.90) m/uL Hgb 8.3 L (13.0-17.5) gm/dL Hct 25.5 L (39.0-53.0) % RDW (11.5-15.5) % Plt Count 534 H (150-450) k/uL Neutrophils # (1.3-7.7) k/uL Neutrophils # (Manual) 11.87 H (1.3-7.7) k/uL Lymphocytes # (1.0-4.8) k/uL Lymphocytes # (Manual) 0.97 L (1.0-4.8) k/uL Eosinophils # (0-0.7) k/uL Metamyelocytes # (Man) 0.28 H (0) k/uL Myelocytes # (Manual) 0.14 H (0) k/uL Nucleated RBCs 3 H (0-0) /100 WBC ABG pO2 (83-108) mmHg ABG Total CO2 (19-24) mmol/L ABG O2 Saturation (94-97) % Sodium (137-145) mmol/L BUN 77 H (9-20) mg/dL Creatinine 5.65 H (0.66-1.25) mg/dL Glucose 115 H (74-99) mg/dL POC Glucose (mg/dL) 105 H (75-99) mg/dL Phosphorus 7.2 H (2.5-4.5) mg/dL Magnesium 2.7 H (1.6-2.3) mg/dL AST (17-59) U/L Alkaline Phosphatase (38-126) U/L Total Protein (6.3-8.2) g/dL Albumin (3.5-5.0) g/dL 10/05/20 10/06/20 10/06/20 Range/Units 23:52 03:03 03:03 WBC 12.2 H (3.8-10.6) k/uL RBC 2.42 L (4.30-5.90) m/uL Hgb 7.6 L (13.0-17.5) gm/dL Hct 24.1 L (39.0-53.0) % RDW 16.6 H (11.5-15.5) % Plt Count 467 H (150-450) k/uL Neutrophils # 9.9 H (1.3-7.7) k/uL Neutrophils # (Manual) (1.3-7.7) k/uL Lymphocytes # 0.9 L (1.0-4.8) k/uL Lymphocytes # (Manual) (1.0-4.8) k/uL Eosinophils # 0.8 H (0-0.7) k/uL Metamyelocytes # (Man) (0) k/uL Myelocytes # (Manual) (0) k/uL Nucleated RBCs (0-0) /100 WBC ABG pO2 (83-108) mmHg ABG Total CO2 (19-24) mmol/L ABG O2 Saturation (94-97) % Sodium 135 L (137-145) mmol/L BUN 69 H (9-20) mg/dL Creatinine 5.25 H (0.66-1.25) mg/dL Glucose 110 H (74-99) mg/dL POC Glucose (mg/dL) 123 H (75-99) mg/dL Phosphorus 5.9 H (2.5-4.5) mg/dL Magnesium (1.6-2.3) mg/dL AST 178 H (17-59) U/L Alkaline Phosphatase 194 H (38-126) U/L Total Protein 5.0 L (6.3-8.2) g/dL Albumin 2.3 L (3.5-5.0) g/dL 10/06/20 Range/Units 05:23 WBC (3.8-10.6) k/uL RBC (4.30-5.90) m/uL Hgb (13.0-17.5) gm/dL Hct (39.0-53.0) % RDW (11.5-15.5) % Plt Count (150-450) k/uL Neutrophils # (1.3-7.7) k/uL Neutrophils # (Manual) (1.3-7.7) k/uL Lymphocytes # (1.0-4.8) k/uL Lymphocytes # (Manual) (1.0-4.8) k/uL Eosinophils # (0-0.7) k/uL Metamyelocytes # (Man) (0) k/uL Myelocytes # (Manual) (0) k/uL Nucleated RBCs (0-0) /100 WBC ABG pO2 117 H (83-108) mmHg ABG Total CO2 27 H (19-24) mmol/L ABG O2 Saturation 98.7 H (94-97) % Sodium (137-145) mmol/L BUN (9-20) mg/dL Creatinine (0.66-1.25) mg/dL Glucose (74-99) mg/dL POC Glucose (mg/dL) (75-99) mg/dL Phosphorus (2.5-4.5) mg/dL Magnesium (1.6-2.3) mg/dL AST (17-59) U/L Alkaline Phosphatase (38-126) U/L Total Protein (6.3-8.2) g/dL Albumin (3.5-5.0) g/dL
[2020-10-06] MEDS: SODIUM CHLORIDE 0.9% 500 ML IV SCH (16:38)
[2020-10-06] MEDS: ATORVASTATIN 40 MG TAB PO SCH (16:44)
--- NOTE | 2020-10-06 16:44 | P.PN ---
Subjective Progress Note Date: 10/06/20 Principal diagnosis: v-fib arrest Patient is a 59-year-old male with a history of hypertension, hypothyroidism, and obesity who presented to the ER after cardiac arrest in the field. He had multiple rounds of CPR, Epi, and Defib prior to obtaining ROSC. It appears that his down time in the field was approximately 30 minutes on review of the EMS run sheet. He was intubated and sedated he underwent a left heart cath with stent to the LAD and impella placement. Echocardiogram demonstrated an EF of less than 20% with global hypokenesis. He was determined to be in cardiogenic shock requiring dopamine, dobutamine, and levophed. He has required a Nimbex drip to maintain adequate ventilation until 09/20/20. He demonstrated shock liver on arrival. He has also had progressive anuric renal failure, nephrology was consulted HD was initiated on 09/21/20. He had one abnormal EEG with worsening of EEG on 09/20/20. We have been unable to wean sedation due to agitation and there are concerns for severe anoxic encephalopathy. His CXR was worsening and procalcitonin was elevated and he was started on zosyn with concerns for possible underlying PNA. He had not been awake or following commands with sedation holidays. On 09/22/20 he clear shook head no in response to questions. On 09/24 patient went into A fib with RVR during sedation holiday and amio gtt was started. CT head showed age- related atrophy without acute intracranial process. PG and trach were attempted on 09/29 but the patient desaturated. He has been on empiric zosyn for possible PNA. He was taken off propofolo due to hhypertriglyceridemia. Trach and peg were sucessfully placed on 10/01/20. He did have some postoperative bleeding around the trach site secondary to his IV heparin which was changed to subcutaneous heparin. He has had intermittent A. fib. He has had some oozing from his trach after successful placement. Patient seen and examined at bedside. He is currently sitting in the chair and undergoing hemodialysis. He is able to lift his left hand off of the chair slightly, wiggle both toes, and raise his right hand slightly. He does report some shortness of breath. General: non toxic, no distress, appears at stated age, obese Derm: warm, dry Head: atraumatic, normocephalic, symmetric Eyes: no lid lesion, anicteric sclera Mouth: no lip lesion, mucus membranes dry with lip cracking Cardiovascular: S1S2 reg, no murmur, positive posterior tibial pulse bilateral, Lungs: Course bilateral, no rhonchi, no rales , no accessory muscle use him on vent, trach in place Abdominal: soft, nontender to palpation, no guarding, no appreciable organomegaly, Ext: no gross muscle atrophy, diffuse anasarca, no contractures Neuro: wiggling toes possibly to commands. no squeezing hands, shakes head yes to pain Psych: Awake, appears comfortable, intermittently following commands, and does not appear anxious. V. fib arrest due to ST segment elevated myocardial infarction status post PCI to the circumflex and impella placement Acute systolic congestive heart failure Ischemic cardiomyopathy with ejection fraction less than 20% P. A fib - dopamine off 09/23/20, dobutamine off, levophed off by 09/22/20 - maintain BP - cardio recs - ASA, Plavix - Amio - On metoprolol. Continue to monitor blood pressure closely. No MARY inhibitor with hopes for possible renal recovery until cleared by nephrology. -LFTs are down trending. We'll resume statin therapy. Generalized Dermatitis -Acute skin clean and dry Hypoxic encephalopathy - neuro recs appreciated: unlikely for major quick recovery, plan for LTACH Acute kidney injury secondary to hypoperfusion and likely ATN Hyperphosphatemia Hyperkalemia - nephrology recs - HD today - Avoid nephrotoxic agents - maintain map >65 Acute hypoxic respiratory failure, Pneumonia possible gram negative completed treatment - off zosyn - pulm recs - pulm hygeine Anemia Thrombocytosis, reactive - component of acute blood loss anemia after trach - follow CBC - no indication for transfusion at this point in time. Morbid obesity with BMI 37.7 Shock liver, resolved Cardiogenic shock, resolved Hypothyroidism Thrombocytopenia, resolved Goal is for transfer to LTACH in the near future. Will need to be off of daily dialysis DVT prophylaxis: heparin Discussed with: Nursing A total of 35 minutes was spent on the care of this complex patient more than 50% of the time was spent in counseling and care coordination. Objective - Vital Signs Vital signs: Vital Signs Temp 99.9 F H 10/06/20 16:00 Pulse 111 H 10/06/20 16:00 Resp 17 10/06/20 16:00 BP 104/81 10/06/20 16:00 Pulse Ox 99 10/06/20 16:00 Intake & Output 10/05/20 10/06/20 10/06/20 18:59 06:59 18:59 Intake Total 449 052 3431 Output Total 4000 0 0 Balance -3138 885 4636 Weight 150.8 kg Intake: IV 160 132 117 0.9 Normal Saline 60 42 27 Pressure Bag Sodium Chloride 0.9% 500 100 90 90 ml @ 10 mls/hr IV .Q24H [facility] Rx#:[id number] Tube Feeding 612 283 459 Hemodialysis 4000 Other 90 90 60 Output: Urine 0 0 0 Hemodialysis 4000 Other: Voiding Method Incontinent Incontinent Incontinent # Voids 0 # Bowel Movements 1 ABP, PAP, CO, CI - Last Documented Arterial Blood Pressure 102/64 - Labs CBC & Chem 7: 10/06/20 03:03 10/06/20 03:03 Labs: Abnormal Lab Results - Last 24 Hours (Table) 10/05/20 10/06/20 10/06/20 Range/Units 23:52 03:03 03:03 WBC 12.2 H (3.8-10.6) k/uL RBC 2.42 L (4.30-5.90) m/uL Hgb 7.6 L (13.0-17.5) gm/dL Hct 24.1 L (39.0-53.0) % RDW 16.6 H (11.5-15.5) % Plt Count 467 H (150-450) k/uL Neutrophils # 9.9 H (1.3-7.7) k/uL Lymphocytes # 0.9 L (1.0-4.8) k/uL Eosinophils # 0.8 H (0-0.7) k/uL ABG pO2 (83-108) mmHg ABG Total CO2 (19-24) mmol/L ABG O2 Saturation (94-97) % Sodium 135 L (137-145) mmol/L BUN 69 H (9-20) mg/dL Creatinine 5.25 H (0.66-1.25) mg/dL Glucose 110 H (74-99) mg/dL POC Glucose (mg/dL) 123 H (75-99) mg/dL Phosphorus 5.9 H (2.5-4.5) mg/dL AST 178 H (17-59) U/L Alkaline Phosphatase 194 H (38-126) U/L Total Protein 5.0 L (6.3-8.2) g/dL Albumin 2.3 L (3.5-5.0) g/dL 10/06/20 10/06/20 Range/Units 05:23 12:27 WBC (3.8-10.6) k/uL RBC (4.30-5.90) m/uL Hgb (13.0-17.5) gm/dL Hct (39.0-53.0) % RDW (11.5-15.5) % Plt Count (150-450) k/uL Neutrophils # (1.3-7.7) k/uL Lymphocytes # (1.0-4.8) k/uL Eosinophils # (0-0.7) k/uL ABG pO2 117 H (83-108) mmHg ABG Total CO2 27 H (19-24) mmol/L ABG O2 Saturation 98.7 H (94-97) % Sodium (137-145) mmol/L BUN (9-20) mg/dL Creatinine (0.66-1.25) mg/dL Glucose (74-99) mg/dL POC Glucose (mg/dL) 103 H (75-99) mg/dL Phosphorus (2.5-4.5) mg/dL AST (17-59) U/L Alkaline Phosphatase (38-126) U/L Total Protein (6.3-8.2) g/dL Albumin (3.5-5.0) g/dL
[2020-10-06 18:08] LABS: Glucose,Whole Blood 105 mg/dL (75-99)
[2020-10-06] MEDS: polyethylene glycoL 3350 17 GM POWD.PACK PO SCH (20:19)
[2020-10-06] MEDS ORDERED: IPRATROPIUM-ALBUTEROL 3 ML NEB INHALATION PRN (20:59)
[2020-10-07] MEDS: NOREPINEPHRINE 8 MG in SODIUM CHLORIDE 0.9% 250 ML IV SCH (00:18)
[2020-10-07] MEDS: HEPARIN SODIUM,PORCINE/PF 5,000 UNIT/0.5 ML SYRINGE SQ SCH (00:21)
[2020-10-07 04:33] LABS: Anisocytosis Slight; Basophils % (A) 0 %; Eosinophils # (A) 0.7 k/uL (0-0.7); Eosinophils % (A) 7 %; HCT 23.7 % (39.0-53.0); HGB 7.5 gm/dL (13.0-17.5); Hypochromasia Slight; Lymphocytes # (A) 0.8 k/uL (1.0-4.8); Lymphocytes % (A) 8 %; MCH 31.7 pg (25.0-35.0); MCHC 31.8 g/dL (31.0-37.0); MCV 99.6 fL (80.0-100.0); Macrocytosis Slight; Mean Platelet Volume 8.9; Monocytes # (A) 0.3 k/uL (0-1.0); Monocytes % (A) 3 %; Neutrophils # (A) 8.1 k/uL (1.3-7.7); Neutrophils % (A) 80 %; Platelet Count 350 k/uL (150-450); RBC 2.38 m/uL (4.30-5.90); RDW 16.9 % (11.5-15.5); WBC 10.1 k/uL (3.8-10.6)
[2020-10-07 04:48] LABS: Calcium 8.9 mg/dL (8.4-10.2); Magnesium 2.6 mg/dL (1.6-2.3); Phosphorus 5.7 mg/dL (2.5-4.5); Potassium 3.7 mmol/L (3.5-5.1)
[2020-10-07 05:52] LABS: ABG Base Excess 2.9 mmol/L; ABG HCO3 27 mmol/L (21-25); ABG Oxygen Saturation 99.8 % (94-97); ABG PCO2 37 mmHg (35-45); ABG PH 7.46 (7.35-7.45); ABG PO2 154 mmHg (83-108); ABG TCO2 28 mmol/L (19-24)
[2020-10-07 06:00] LABS: Allen Test Performed? no
--- NOTE | 2020-10-07 06:16 | P.PN ---
Subjective Progress Note Date: 10/07/20 Principal diagnosis: Acute coronary event/cardiopulmonary arrest This is a 59-year-old gentleman with a past medical history significant for hypertension and dyslipidemia who was admitted to the hospital in August after the cardiac arrest at home where the patient was found to be in V. fib and he was defibrillated 3. The downtime was unclear. Subsequently the patient was diag nosed with acute ST segment elevation and he underwent an emergent heart catheterization and PCI of the LCx with adjunctive use of Impella. That was complicated by extended time of intubation and mechanical ventilation and subsequently he underwent trach tube placement. Also his course was complicated by atrial fibrillation. Also his course was complicated by renal failure. The echo showed severe cardiomyopathy. The patient was seen today. His mentation has been improving slightly every da y. He remains in atrial fibrillation with ontrolled heart rate. He remains hemodynamically stable and not on any vasopressors. In the past week tried him on anticoagulation was heparin antiplatelet twice from the trach tube. I am going to start the patient on Eliquis at 2.5 mg bid and monitor her for bleeding. His AIMEE-VASC score is elevated. Will continues to be on Toprol-XL. He is also on dual antiplatelet therapy. The creatinine continues to be elevated and nephrology is on the case. Objective - Vital Signs Vital signs: Vital Signs Temp 97.6 F 10/07/20 04:00 Pulse 92 10/07/20 05:00 Resp 30 H 10/07/20 05:00 BP 111/72 10/07/20 05:00 Pulse Ox 99 10/07/20 05:00 Intake & Output 10/06/20 10/06/20 10/07/20 06:59 18:59 06:59 Intake Total 885 4764 794 Output Total 0 0 0 Balance 885 4764 794 Weight 132.5 kg Intake: IV 132 143 143 0.9 Normal Saline 42 33 33 Pressure Bag Sodium Chloride 0.9% 500 90 110 110 ml @ 10 mls/hr IV .Q24H [facility] Rx#:[id number] Tube Feeding 663 561 561 Hemodialysis 4000 Other 90 60 90 Output: Urine 0 0 0 Other: Voiding Method Incontinent Incontinent Incontinent # Voids 0 # Bowel Movements 1 ABP, PAP, CO, CI - Last Documented Arterial Blood Pressure 102/60 - Constitutional General appearance: Present: no acute distress - Respiratory Respiratory: bilateral: diminished - Cardiovascular Rhythm: regular Heart sounds: normal: S1, S2 - Labs CBC & Chem 7: 10/07/20 04:20 10/07/20 04:20 Labs: Abnormal Lab Results - Last 24 Hours (Table) 10/06/20 10/06/20 10/07/20 Range/Units 12:27 18:07 04:20 RBC 2.38 L (4.30-5.90) m/uL Hgb 7.5 L (13.0-17.5) gm/dL Hct 23.7 L (39.0-53.0) % RDW 16.9 H (11.5-15.5) % Neutrophils # 8.1 H (1.3-7.7) k/uL Lymphocytes # 0.8 L (1.0-4.8) k/uL ABG pH (7.35-7.45) ABG pO2 (83-108) mmHg ABG HCO3 (21-25) mmol/L ABG Total CO2 (19-24) mmol/L ABG O2 Saturation (94-97) % Sodium (137-145) mmol/L BUN (9-20) mg/dL Creatinine (0.66-1.25) mg/dL Glucose (74-99) mg/dL POC Glucose (mg/dL) 103 H 105 H (75-99) mg/dL Phosphorus (2.5-4.5) mg/dL Magnesium (1.6-2.3) mg/dL 10/07/20 10/07/20 Range/Units 04:20 05:51 RBC (4.30-5.90) m/uL Hgb (13.0-17.5) gm/dL Hct (39.0-53.0) % RDW (11.5-15.5) % Neutrophils # (1.3-7.7) k/uL Lymphocytes # (1.0-4.8) k/uL ABG pH 7.46 H (7.35-7.45) ABG pO2 154 H (83-108) mmHg ABG HCO3 27 H (21-25) mmol/L ABG Total CO2 28 H (19-24) mmol/L ABG O2 Saturation 99.8 H (94-97) % Sodium 135 L (137-145) mmol/L BUN 73 H (9-20) mg/dL Creatinine 4.93 H (0.66-1.25) mg/dL Glucose 108 H (74-99) mg/dL POC Glucose (mg/dL) (75-99) mg/dL Phosphorus 5.7 H (2.5-4.5) mg/dL Magnesium 2.6 H (1.6-2.3) mg/dL Assessment and Plan Assessment: Assessment #1 acute coronary event #2 cardiopulmonary arrest #3 severe cardiomyopathy #4 persistent atrial fibrillation #5 multiple comorbid conditions Plan #1 continue the current dose of beta rhonda as well as amiodarone are on #2 start the patient on oral anticoagulation #3 follow-up with the patient
[2020-10-07] MEDS: LEVOTHYROXINE 50 MCG TAB PO SCH (06:21)
[2020-10-07] MEDS: IPRATROPIUM-ALBUTEROL 3 ML NEB INHALATION SCH ×4 (07:18→20:01)
[2020-10-07] MEDS: AMIODARONE 200 MG TAB PO SCH ×2 (08:05→21:26)
[2020-10-07] MEDS: METOPROLOL SUCCINATE (ER) 25 MG TAB.ER.24H PO SCH (08:06)
[2020-10-07] MEDS: ASPIRIN 81 MG PO SCH (08:06)
[2020-10-07] MEDS: ATORVASTATIN 40 MG TAB PO SCH (08:06)
[2020-10-07] MEDS: CALCIUM ACETATE 667 MG TAB PO SCH ×4 (08:06→21:29)
[2020-10-07] MEDS: CLOPIDOGREL 75 MG TAB PO SCH (08:06)
[2020-10-07] MEDS: PANTOPRAZOLE 40 MG/10 ML VIAL IVP SCH (08:08)
[2020-10-07] MEDS: SODIUM BICARBONATE TAB 650 MG TAB PO SCH ×2 (08:08→21:26)
[2020-10-07] MEDS: PIPERACILLIN-TAZOBACTAM 3.375 GM in SODIUM CHLORIDE 0.9% 100 ML IVPB SCH ×2 (08:08→21:26)
--- NOTE | 2020-10-07 09:37 | P.PN ---
Subjective Progress Note Date: 10/06/20 10/06/2020: Patient was seen for a follow-up. Patient is now fully alert and awake. Patient is making significant improvement on a daily basis. Patient smiled, follows commands. Patient is off sedation including Precedex since 10/03/2020. 10/04/2020: patient's was also present today. Patient today is much improved. Patient is fully alert and awake. Patient is making eye contact, tracking with his eyes. He is moving his head [id number] towards the examiner. Patient is off sedation. Please refer to examination below. 10/03/2020: Patient is essentially unchanged. Patient is currently off fentanyl since 8:30 to 9 AM. He is still on Precedex 0.6 g. Patient is awake, with minimal response as mentioned in examination. Patient is getting hemodialysis. 10/02/2020: Patient had undergone tracheostomy and PEG placement yesterday. Patient is on fentanyl 1.5 and Precedex 0.6 g infusion. Patient is very awake, eyes open, blinking regularly. Patient apparently appears to be slightly slightly trying to turn his gaze towards the caller. However it was not consistent. One time he grimaced with nailbed pressure. Did not follow any directions, did not wiggle his feet or toes. 10/01/2020: Patient was seen for a follow-up. Patient is now opening his eyes, but continues to be severely encephalopathic. Please refer to examination below. Patient is currently on fentanyl 2 g, and Precedex 0.7 mcg/kg infusion. No seizure-like activity has been reported. 09/21/2020: Patient's was also present. Patient is currently on propofol 60 g. Patient underwent complete sedation holiday for 10 minutes. Patient is moving all 4 extremities randomly, but did not follow commands. His eyes were open, and the gaze was straight ahead, but no tracking or making eye contact. He would shake head [id number] randomly. Patient at present is on Levothroid 0.2, dopamine 2.5, dobutamine 3.5. Patient also has developed arrhythmia with atrial fibrillation, PVCs for which he is on amiodarone. Patient on subcu heparin. 09/20/2020: Patient was seen for a follow-up. Patient's father, patient's and his [id number] were present. Nurse was also present. Patient currently on propofol 64 g. He is off fentanyl and Nimbex. According to nurse report, when she performed sedation holiday, patient was moving all 4 extremities randomly, trying to sit up, opened his eyes, but gaze was upwards. He did not follow any directions. He did not make any eye contact or tract with his vision. Patient is still on dobutamine 3.5 g, dopamine 2.5 mcg. 09/19/2020: Patient was seen for a follow-up. Patient's family was also present today. Nurse was also present. Patient continues to be extremely critically sick. Still not able to be able to obtain CAT scan. Patient currently on multiple pressors including dobutamine 3.5 mcg/kg, dopamine 2.5 mcg/kg, Levophed 40 mcg/m. Patient is also on Nimbex 0.5 mcg/kg, propofol 60 mcg/kg and fentanyl 2 mg/kg. Impella has been removed earlier today. 09/18/2020: Patient was seen for a follow-up. Please refer to Dr. Fadi Johnson note for details. Patient came to the hospital with cardiac arrest. Exact downtime unclear, altho ugh some report states 20 minutes. Patient had acute OR, for which he underwent cardiac stenting. At present patient is on sedation with propofol 70 g, which is a high dose. He has a cardiac device, which prevents him from getting computed tomography scan. Per nursing report, when sedation is decreased, he does move all 4 extremities randomly, although not purposefully. He did open his eyes. At present patient is sedated. Objective - Vital Signs Vital signs: Vital Signs Temp 97.6 F 10/07/20 04:00 Pulse 92 10/07/20 08:00 Resp 21 10/07/20 08:00 BP 132/97 10/07/20 08:00 Pulse Ox 98 10/07/20 08:00 Intake & Output 10/06/20 10/07/20 10/07/20 18:59 06:59 18:59 Intake Total 4764 858 158 Output Total 0 0 0 Balance 4764 858 158 Weight 132.5 kg Intake: IV 143 156 26 0.9 Normal Saline 33 36 6 Pressure Bag Sodium Chloride 0.9% 500 110 120 20 ml @ 10 mls/hr IV .Q24H [facility] Rx#:[id number] Tube Feeding 561 612 102 Hemodialysis 4000 Other 60 90 30 Output: Urine 0 0 0 Other: Voiding Method Incontinent Incontinent # Voids 0 # Bowel Movements 1 ABP, PAP, CO, CI - Last Documented Arterial Blood Pressure 151/84 - Exam Patient is fully alert and awake. Patient is making eye contact, tracking with his eyes. He is moving his head [id number] towards the examiner. Patient able to move his feet at the ankles on command. Also able to move/flex his knees about 2+ bilaterally. Patient did not squeeze hand. Patient's visual claudio are full on either side. He smiled, protrude his tongue. His generalized swelling has decreased. - Labs CBC & Chem 7: 10/07/20 04:20 10/07/20 04:20 Labs: Abnormal Lab Results - Last 24 Hours (Table) 10/06/20 10/06/20 10/07/20 Range/Units 12:27 18:07 04:20 RBC 2.38 L (4.30-5.90) m/uL Hgb 7.5 L (13.0-17.5) gm/dL Hct 23.7 L (39.0-53.0) % RDW 16.9 H (11.5-15.5) % Neutrophils # 8.1 H (1.3-7.7) k/uL Lymphocytes # 0.8 L (1.0-4.8) k/uL ABG pH (7.35-7.45) ABG pO2 (83-108) mmHg ABG HCO3 (21-25) mmol/L ABG Total CO2 (19-24) mmol/L ABG O2 Saturation (94-97) % Sodium (137-145) mmol/L BUN (9-20) mg/dL Creatinine (0.66-1.25) mg/dL Glucose (74-99) mg/dL POC Glucose (mg/dL) 103 H 105 H (75-99) mg/dL Phosphorus (2.5-4.5) mg/dL Magnesium (1.6-2.3) mg/dL 10/07/20 10/07/20 Range/Units 04:20 05:51 RBC (4.30-5.90) m/uL Hgb (13.0-17.5) gm/dL Hct (39.0-53.0) % RDW (11.5-15.5) % Neutrophils # (1.3-7.7) k/uL Lymphocytes # (1.0-4.8) k/uL ABG pH 7.46 H (7.35-7.45) ABG pO2 154 H (83-108) mmHg ABG HCO3 27 H (21-25) mmol/L ABG Total CO2 28 H (19-24) mmol/L ABG O2 Saturation 99.8 H (94-97) % Sodium 135 L (137-145) mmol/L BUN 73 H (9-20) mg/dL Creatinine 4.93 H (0.66-1.25) mg/dL Glucose 108 H (74-99) mg/dL POC Glucose (mg/dL) (75-99) mg/dL Phosphorus 5.7 H (2.5-4.5) mg/dL Magnesium 2.6 H (1.6-2.3) mg/dL Assessment and Plan Assessment: * Status post out of hospital cardiac arrest with prolonged downtime, at least 20 minutes or slightly longer. Patient is showing remarkable clinical impro vement. His mentation appears very intact. Patient follows commands. Even started moving lower extremities on command. * Patient status post trach and PEG placement 10/01/2020. * STEMI s/p PCI to circumflex and status post removal of impella placement * Acute kidney injury, requiring hemodialysis * Anemia * Elevated liver function test. * Congestive heart failure * Paroxysmal atrial fibrillation, not on anticoagulants. * Cardiomegaly Plan: * Patient's level of consciousness has remarkably improved. Patient is following commands. He was moving his arms and legs (including his feet) on commands. Patient is showing significant clinical improvement almost on a daily basis. * Patient had undergone tracheostomy and PEG placement 10/01/2020. * Patient has been started on Eliquis 2.5 mg twice a day for atrial fibrillation per cardiology. * EEG 09/20/2020, which was abnormal due to background slowing of moderate to severe degree. This is slightly more asymmetric involving the right hemisphere as compared to the left. This is suggestive of generalized cerebral dysfunction as can be seen with anoxic or toxic metabolic encephalopathy or from underlying structural abnormality. No epileptiform activity was seen. When compared to the EEG from 09/17/2020, the background appears to have got worse. * CT of the head 09/26/2020 showed no acute process. Evidence of small hypodensity in the left centrum semiovale in the posterior frontal region. This was also present on computed tomography scan from 09/22/2020. * Ammonia level 10. * 2-D echo revealed presence of Impella device. Left ventricle severely dilated. Severe global hypokinesis of the left ventricle, EF is <20%. Cardiology is on board. * Long-term prognosis for meaningful recovery remains guarded mainly due to other comorbid conditions including renal functions, cardiac status. * Possible transfer to long-term care facility, when medically cleared. * Will defer the rest of the medical management (including atrial fibrillation and need for anticoagulation) to the IM and other specialties.
[2020-10-07] MEDS: SODIUM CHLORIDE 0.9% 500 ML IV SCH (09:44)
[2020-10-07] MEDS: APIXABAN 2.5 MG TABLET PO SCH ×2 (09:44→21:26)
--- NOTE | 2020-10-07 09:50 | P.PN ---
Subjective Progress Note Date: 10/05/20 10/05/2020: Patient was seen for a follow-up. Patient is now fully alert and awake. Patient is making significant improvement on a daily basis. Patient smiled, follows commands. Patient is off sedation including Precedex since 10/03/2020. Patient appears very comfortable. 10/04/2020: patient's was also present today. Patient today is much imp roved. Patient is fully alert and awake. Patient is making eye contact, tracking with his eyes. He is moving his head [id number] towards the examiner. Patient is off sedation. Please refer to examination below. 10/03/2020: Patient is essentially unchanged. Patient is currently off fentanyl since 8:30 to 9 AM. He is still on Precedex 0.6 g. Patient is awake, with minimal response as mentioned in examination. Patient is getting hemodialysis. 10/02/2020: Patient had undergone tracheostomy and PEG placement yesterday. Patient is on fentanyl 1.5 and Precedex 0.6 g infusion. Patient is very awake, eyes open, blinking regularly. Patient apparently appears to be slightly slightly trying to turn his gaze towards the caller. However it was not consistent. One time he grimaced with nailbed pressure. Did not follow any directions, did not wiggle his feet or toes. 10/01/2020: Patient was seen for a follow-up. Patient is now opening his eyes, but continues to be severely encephalopathic. Please refer to examination below. Patient is currently on fentanyl 2 g, and Precedex 0.7 mcg/kg infusion. No seizure-like activity has been reported. 09/21/2020: Patient's was also present. Patient is currently on propofol 60 g. Patient underwent complete sedation holiday for 10 minutes. Patient is moving all 4 extremities randomly, but did not follow commands. His eyes were open, and the gaze was straight ahead, but no tracking or making eye contact. He would shake head [id number] randomly. Patient at present is on Levothroid 0.2, dopamine 2.5, dobutamine 3.5. Patient also has developed arrhythmia with atrial fibrillation, PVCs for which he is on amiodarone. Patient on subcu heparin. 09/20/2020: Patient was seen for a follow-up. Patient's father, patient's and his [id number] were present. Nurse was also present. Patient currently on propofol 64 g. He is off fentanyl and Nimbex. According to nurse report, when she performed sedation holiday, patient was moving all 4 extremities randomly, trying to sit up, opened his eyes, but gaze was upwards. He did not follow any directions. He did not make any eye contact or tract with his vision. Patient is still on dobutamine 3.5 g, dopamine 2.5 mcg. 09/19/2020: Patient was seen for a follow-up. Patient's family was also present today. Nurse was also present. Patient continues to be extremely critically sick. Still not able to be able to obtain CAT scan. Patient currently on multiple pressors including dobutamine 3.5 mcg/kg, dopamine 2.5 mcg/kg, Levophed 40 mcg/m. Patient is also on Nimbex 0.5 mcg/kg, propofol 60 mcg/kg and fentanyl 2 mg/kg. Impella has been removed earlier today. 09/18/2020: Patient was seen for a follow-up. Please refer to Dr. Fadi Johnson note for details. Patient came to the hospital with cardiac arrest. Exact downtime unclear, although some report states 20 minutes. Patient had acute IA, for which he underwent cardiac stenting. At present patient is on sedation with propofol 70 g, which is a high dose. He has a cardiac device, which prevents him from getting computed tomography scan. Per nursing report, when sedation is decreased, he does move all 4 extremities randomly, although not purposefully. He did open his eyes. At present patient is sedated. Objective - Vital Signs Vital signs: Vital Signs Temp 97.6 F 10/07/20 04:00 Pulse 98 10/07/20 09:00 Resp 23 10/07/20 09:00 BP 125/89 10/07/20 09:00 Pulse Ox 99 10/07/20 09:00 Intake & Output 10/06/20 10/07/20 10/07/20 18:59 06:59 18:59 Intake Total 4764 858 222 Output Total 0 0 0 Balance 4764 858 222 Weight 132.5 kg Intake: IV 143 156 39 0.9 Normal Saline 33 36 9 Pressure Bag Sodium Chloride 0.9% 500 110 120 30 ml @ 10 mls/hr IV .Q24H [facility] Rx#:[id number] Tube Feeding 561 612 153 Hemodialysis 4000 Other 60 90 30 Output: Urine 0 0 0 Other: Voiding Method Incontinent Incontinent # Voids 0 # Bowel Movements 1 ABP, PAP, CO, CI - Last Documented Arterial Blood Pressure 138/69 - Exam Patient is fully alert and awake. Patient's emotions appears very intact. Attention, concentration appears intact. Slightly slow response, but he does follow. Pupils are round and reactive to light. Patient's visual claudio are intact in all 4 quadrants. Extraocular muscles are intact. Face is symmetric. Patient protrudes his tongue to the midline. Patient is making eye contact, tracking with his eyes. He is moving his head [id number] towards the examiner. On muscle strength testing, Patient able to move his feet at the ankles on command. Also able to move/flex his knees about 2+ bilaterally. Patient did not squeeze hand today.. His generalized swelling has decreased. - Labs CBC & Chem 7: 10/07/20 04:20 10/07/20 04:20 Labs: Abnormal Lab Results - Last 24 Hours (Table) 10/06/20 10/06/20 10/07/20 Range/Units 12:27 18:07 04:20 RBC 2.38 L (4.30-5.90) m/uL Hgb 7.5 L (13.0-17.5) gm/dL Hct 23.7 L (39.0-53.0) % RDW 16.9 H (11.5-15.5) % Neutrophils # 8.1 H (1.3-7.7) k/uL Lymphocytes # 0.8 L (1.0-4.8) k/uL ABG pH (7.35-7.45) ABG pO2 (83-108) mmHg ABG HCO3 (21-25) mmol/L ABG Total CO2 (19-24) mmol/L ABG O2 Saturation (94-97) % Sodium (137-145) mmol/L BUN (9-20) mg/dL Creatinine (0.66-1.25) mg/dL Glucose (74-99) mg/dL POC Glucose (mg/dL) 103 H 105 H (75-99) mg/dL Phosphorus (2.5-4.5) mg/dL Magnesium (1.6-2.3) mg/dL 10/07/20 10/07/20 Range/Units 04:20 05:51 RBC (4.30-5.90) m/uL Hgb (13.0-17.5) gm/dL Hct (39.0-53.0) % RDW (11.5-15.5) % Neutrophils # (1.3-7.7) k/uL Lymphocytes # (1.0-4.8) k/uL ABG pH 7.46 H (7.35-7.45) ABG pO2 154 H (83-108) mmHg ABG HCO3 27 H (21-25) mmol/L ABG Total CO2 28 H (19-24) mmol/L ABG O2 Saturation 99.8 H (94-97) % Sodium 135 L (137-145) mmol/L BUN 73 H (9-20) mg/dL Creatinine 4.93 H (0.66-1.25) mg/dL Glucose 108 H (74-99) mg/dL POC Glucose (mg/dL) (75-99) mg/dL Phosphorus 5.7 H (2.5-4.5) mg/dL Magnesium 2.6 H (1.6-2.3) mg/dL Assessment and Plan Assessment: * Status post out of hospital cardiac arrest with prolonged downtime, at least 20 minutes or slightly longer. Patient is showing remarkable clinical improvement. His mentation appears very intact. Patient follows commands. Even started moving lower extremities on command. * Patient status post trach and PEG placement 10/01/2020. * STEMI s/p PCI to circumflex and status post removal of impella placement * Acute kidney injury, requiring hemodialysis * Anemia * Elevated liver function test. * Congestive heart failure * Paroxysmal atrial fibrillation, not on anticoagulants. * Cardiomegaly Plan: * Patient's level of consciousness has remarkably improved. Patient is following commands. He was moving his arms and legs (including his feet) on commands. Patient is showing significant clinical improvement almost on a daily basis. Patient's visual claudio in all 4 quadrants also appears intact. * Patient had undergone tracheostomy and PEG placement 10/01/2020. * EEG 09/20/2020, which was abnormal due to background slowing of moderate to severe degree. This is slightly more asymmetric involving the right hemisphere as compared to the left. This is suggestive of generalized cere bral dysfunction as can be seen with anoxic or toxic metabolic encephalopathy or from underlying structural abnormality. No epileptiform activity was seen. When compared to the EEG from 09/17/2020, the background appears to have got worse. * CT of the head 09/26/2020 showed no acute process. Evidence of small hypodensity in the left centrum semiovale in the posterior frontal region. This was also present on computed tomography scan from 09/22/2020. * Ammonia level 10. * 2-D echo revealed presence of Impella device. Left ventricle severely dilated. Severe global hypokinesis of the left ventricle, EF is <20%. Cardiology is on board. * Long-term prognosis for meaningful recovery remains guarded mainly due to other comorbid conditions including renal functions, cardiac status. * Patient appears to be a very good candidate for inpatient rehabilitation, when medically cleared. * Will defer the rest of the medical management (including atrial fibrillation and need for anticoagulation) to the IM and other specialties.
--- NOTE | 2020-10-07 10:21 | XR ---
EXAMINATION TYPE: XR chest 1V portable DATE OF EXAM: 10/07/2020 COMPARISON: 10/06/2020 INDICATION: Ventilated difficulty breathing TECHNIQUE: Single frontal view of the chest is obtained. FINDINGS: The heart size is enlarged. The pulmonary vasculature is normal. Some mild right perihilar infiltrate is present. Left lower lobe air bronchograms are present. Correl ate for pneumonia. Double lumen catheter is present on the right with the tips in the distal superior vena cava right at rial junction. Tracheostomy tube is in the midline. PICC line is present with tip in the superior antonio a cava region. IMPRESSION: 1. Improving right perihilar infiltrate and a stable appearing left lower lobe infiltrate. Correlate for pneumonia. 2. Lines and catheters discussed above
--- NOTE | 2020-10-07 10:51 | P.PN ---
Subjective Progress Note Date: 10/07/20 Principal diagnosis: Cardiac arrest and acute hypoxic respiratory failure secondary to cardiac arrest. 59-year-old male patient, post cardiac arrest, V. fib arrest, who is admitted intensive care unit since 09/17/2020 and the patient is being seen in follow-up today on 09/25/2020. The patient is still intubated on a mechanical ventilator. The patient was a V. fib arrest, received CPR on the scene, defibrillated, received epinephrine and was brought into us in his been in the intensive care unit setting. He turned out to be a case of a ST segment elevation myocardial infarction. He received immediate cardiac catheterization and stenting of the circumflex artery. The patient this morning is sedated with propofol running at 60 mcg/kg per minute. Is also on fentanyl 1 mcg/mg/h. He is off pressors. His cardiac rhythm is sinus with a left bundle branch block pattern. Over the past 24 hours, the patient was given dobutamine to augment his cardiac output. He went into atrial fibrillation with RVR. He was given a bolus of amiodarone and he is currently back into normal sinus rhythm. In terms of his vent support, the patient remains on mechanical ventilator. At this point in time, the patient is an assist-control mode at the rate of 28 and a tidal volume of 500 and FiO2 of 50% with a PEEP of 10. The blood gases from today showing a pH of 7.31 with a pCO2 of 35 and pO2 of 122. He is in renal failure. He is receiving dialysis periodically. He received dialysis on 09/20/2020 and 09/21/2020. Dialysis was attempted yesterday, unable to complete as the patient's catheter was kinked and Changes will be done today surgery. He will probably end up hav ing another session of hemodialysis today. When the process of getting the patient sedation holiday in his neurologic function will be reevaluated. CAT scan of the brain another EEG is in progress for today. He is on Levemir insulin for blood sugar control. He is on vital high protein at the rate of 27 mL an hour. No abdominal distention. No nausea or vomiting. No fever or chills. Chest x-ray is showing cardiomegaly with small bilateral pleural effusions on some atelectatic changes in lung bases bilaterally. Orogastric tube is in a good location. He does have small pleural effusions. There is stable cardiomegaly. In terms of his blood work, the white cell count is at 9.2 with a hemoglobin of 9.6. Sodium is at 129, potassium at 5.3, serum bicarbonate is 14 with a BUN of 78 and a creatinine of 9.67. On today's evaluation of 09/26/2020, the patient is being given another sedation holiday. The process yesterday got interrupted as the patient became basically a mechanical ventilator and the patient went into atrial fibrillation with rapid ventricular response. At that point, the patient was placed back on sedation with accommodation propofol and fentanyl and he was kept on the sedation throughout the day. This morning, the plan is to get him off the sedation again and utilizing Precedex if needed. A repeat CAT scan of the brain was ordered for today and the CAT scan showed age-related atrophy and chronic small vessel ischemic changes without any acute intracranial process. No evidence of any acute bleeding. On today's evaluation, the patient is grimacing to deep painful stimulation that was applied to his fingers and toes. For now, the patient is calm and comfortable. He is synchronous with the mechanical ventilator. He is on assist control mode of ventilation, at the rate of 28 and a tidal volume of 500 and FiO2 of 40% with a PEEP of 5. The blood gases from today showed a pH of 7.29 with a pCO2 of 41 and pO2 of 75. This was on FiO2 of 40%. The patient's chest x-ray showed stable findings along with some pulmonary a congestion and scattered infiltrates and interstitial edema. The orotracheal tube was in a good location. NG tube was also in a good location. The patient is currently in normal sinus rhythm. He is on amiodarone drip at 1 mg per minute and based on cardiology recommendation, we'll continue the amiodarone drip at a mainten ance of 1 mg per minute. A minimal amount of urine output. The patient remains in acute kidney injury. Creatinine is up to 7.98. Underwent hemodialysis yesterday. A another session of hemodialysis will be given to him today. He is afebrile. He is receiving enteral feeding for nutritional support. He continues to be on a combination of aspirin and Plavix. He is on no pressors for now. Had a discussion with the . Updated her on his condition. There is a concern of ongoing hypoxic encephalopathy. Meanwhile, the patient remains on Levemir insulin for blood sugar control in addition a slight scale insulin coverage. The patient is receiving vital high protein which is currently at goal. Current cardiac rhythm is sinus with a bundle-branch block pattern. 09/27/2020, I'm seeing the patient for a follow-up. Note that the patient is a case of a cardiac arrest with a STEMI requiring emergent cardiac catheterization and stenting of the circumflex. During the course of his treatment, the patient required insertion and removal of an impeller device. In any rate, there was a concern of the patient was having anoxic encephalopathy. Yesterday, I took him off the fentanyl and the propofol and I switched him to Precedex. As the weaning was being done, the patient was given a sedation holiday and he got to the point where he was awake and following some simple commands. He would open up his eyes. He would move his toes and fingers upon demand. This was also confirmed by neurology. As such, we believe that there is adequate neurologic functions. Nevertheless, as the patient was taken off the sedation, he required more sedation he was placed on Precedex and ultimately were unable to control his restlessness and the patient was having increased tachypnea tachycardia and episodes of atrial fibrillation with rapid ventricular response. He was also desaturating as the patient was becoming asynchronous with a mechanical ventilator. I had to put him back on propofol is currently running at 45 mcg/kg per minute. He stayed on propofol throughout the night. Meanwhile, he remains on assist control mode at a rate of 22 with a tidal volume of 500 and FiO2 of 70% with a PEEP of 10. The blood gases from today showing a pH of 7.35 with a pCO2 of 40 and pO2 of 129. The chest x-ray showing development of a right lower lobe pulmonary infiltrate. ET tube is in a good location. There is a suspicion of a right lower lobe pneumonia. White cell count is up to 15.2. Mild dynamically, he is on no pressors. He is back in normal sinus rhythm. He remains on amiodarone 1 mg per minute per shoe treer recommendation. He does have a bundle-branch block pattern. A repeat echocardiogram was done today and his EF is still poor, less than 20%. He remains in renal failure. He is requiring daily hemodialysis. Underwent hemodialysis yesterday with ultrafilt ration of 500 mL. He continues to have extensive swelling in the upper and lower extremity and in his scrotum. On today's evaluation, he is also noted to have diminished pulses in lower extremities bilaterally. Doppler significant drop in the right foot. Right foot is cold and an same time there is some skin mottling and cyanosis in his toes mainly on the right. As mentioned, the right foot is cold yet Doppler signals are present. His previously inserted and patella was in the right femoral artery. There is also some rash developing over his upper thighs and abdomen and trunk and shoulders and upper extremities. He is receiving enteral feeding for nutritional support and is currently on vital high protein running at 23 mL an hour. Urine output is 5 mL an hour. 09/28/2020, the patient is being seen for a follow-up. He has been kept on propofol 45 mg/kg/m. We were unable to control his condition off sedation. He went on Precedex and he was still quite restless and agitated and at that point he was switched again to propofol. This morning is much more comfortable. Nevertheless, blood was noted to be lipemic. We're going to check her triglyceride levels and switch this patient back to Precedex. Note that while on Precedex, the patient was able to follow some simple commands. The ultimate plan is to proceed with a pack and a tracheostomy tube insertion and this is scheduled to be done tomorrow. Meanwhile, the patient underwent hemodialysis today. A total of 1.5 L of ultrafiltration was performed. His cardiac rhythm remains atrial fibrillation and amiodarone is running at 1 mg per minute. He remains on a mechanical ventilator on assist control mode with a rate of 22 and tidal volume of 550 FiO2 of 60% with a PEEP of 10. Blood gas showed a pH of 7.37 with a pCO2 of 34 and pO2 of 100. The patient is also receiving enteral feeding for nutritional support with Nepro 20 mL an hour. Urine output is minimal. The patient had some ischemic changes in the lower extremity especially on the right. On today's evaluation, the right foot is warmer compared to yesterday and there are Doppler signals bilaterally. Arterial Dopplers abdominal pain and the results of the pending in the patient is being seen by vascular surgery. He is on no pressors for now. On today's chest x- ray, there is the blood of the right lung consolidation. The patient was prod ucing purulent mucus yesterday. Sputum cultures have been sent. The patient was started on IV Zosyn. Rest or secretions improved since yesterday. White cell count currently is at 14.8 with hemoglobin of 9.4. 09/29/2020, the patient was taken to the operating room for a PEG and trach and the patient was brought back without having the procedure done. Note that the patient was quite stable earlier this morning. He was on Precedex which was running at 0.6 mcg/kg/h. He was able to respond and follows some simple commands. By the time he arrived to the operating room, the patient was placed on the operating room table and he became hypoxic and he developed oxygen desaturation was also stop in the mid 80s. At that point, the procedure was canceled as the patient was transferred back into the intensive care unit. I have an ICU. Currently is on Precedex at 0.7 mcg/kg/h. He was also given Dilaudid 1 mg IV. He is resting comfortably on a mechanical ventilator for now. He is on assist control mode at a rate of 20 with a tidal volume of 600 and FiO2 of 17 with a PEEP of 8. His current pulse ox is 93%. Chest x-ray from today is showing cardiomegaly. There is pulmonary vascular congestion. There is also consolidation of the right lung which we suspected this was related to a n underlying pneumonia. There is also bibasilar infiltrates. No pneumothorax. No pleural effusion. ET tube was in a good location. His sputum productions with orotracheal tube has subsided and the cultures that were collected earlier has not resulted in to have positive growth. The patient remains on IV Zosyn as an empiric antibiotic coverage. He is afebrile for now. As mentioned earlier, he is able to communicate once sedation is off and wheezing. Neurologically the patient is intact. In terms of hemodynamics, current rhythm is sinus. He has a bundle-branch block pattern, left-sided and the patient remains on amiodarone 1 mg per minute. His anticoagulation with IV heparin was held as the patient was being considered for a PEG and trach today. I may restart anticoagulation as long as we have a PTT breathing on this patient. Note that his triglyceride levels was up to 987. He was taken off the propofol. He is supposed to undergo dialysis today. He is able to undergo dialysis without any major issues. His BUN is at 87 with a creatinine of 7.2. His sodium level is at 131 with a potassium level of 5.5. Hemoglobin today is at 8.8 with a white cell count of 13.0. The enteral feeding has been held this morning in preparation for PEG and trach. I'm going to start him back on feeding today which is in the form of Nepro at the rate of 23 mL an hour. 2020, the patient is being seen for a follow-up. The plan is to proceed with a PEG tube a tracheostomy tube insertion tomorrow. The procedure yesterday got complicated as the patient desaturated and operate. This morning, he is on a combination of Precedex and fentanyl drip for sedation. Precedex is running at 0.7 mcg/kg/h and fentanyl is running at 2 mcg/kg/h. He still opens up his eyes. He is partially responsive to painful stimulation and tactile stimulation. Meanwhile, he remains on a mechanical ventilator. He remains on assist control mode at the rate of 20 with a tidal volume of 600 and FiO2 of 50% with a PEEP of 8. Blood gases from this morning show a pH of 7.39 with a pCO2 of 36 and pO2 of 88. No significant orotracheal secretions. Awaiting follow-up chest x-ray from today. Meanwhile, the sputum culture came back negative and the patient was covered empirically with IV Zosyn. He is currently off the amiodarone drip. Cardiac rhythm still in atrial fibrillation which is under better control. He remains also on IV heparin. Note that he goes back and forth between sinus rhythm and atrial fibrillation. His ejection fraction is less than 20%. He is tolerating his enteral feeding for nutritional support. He is afebrile. Potassium today's of 5.7 and this will be treated medically and the patient underwent his hemodialysis yesterday. No dialysis to follow first thing in the morning. BUN is at 84 with a creatinine of 6.4. In regards to his high potassium, he'll be given 10 units of regular insulin along with D50 in addition to 4 bicarb doses of 50 mEq. We'll monitor his potassium level. Patient was reevaluated today on 10/01/2020, remains in the ICU, intubated and mechanically ventilated. Patient is on volume control plus with volume of 600, FiO2 50%, inspiratory time of 0.9 seconds, PEEP at 8, rate is at 20. Vent changes were made today, increase rate to 26 decreased I'll volume to 550 and decreased inspiratory time to 0.80. Patient remains on fentanyl at 2 mcg/kg/h, he is on Precedex at 0.7 mcg/kg/m. He is also on heparin but presently off since the patient is going for tracheostomy and PEG tube placement. He is off norepinephrine. ABG this morning showed a pO2 of 88 pCO2 of 41 pH of 7.34. He is in atrial fibrillation with a rate of 106. Patient is on hemodialysis, received dialysis today and 2 L were off. Last hemodialysis was 09/28 and 1.8 L were taken off. He is empirically on Zosyn which may have to be discontinued, patient had over 11 days of Zosyn. And no clear-cut culture to treat. Chest x- ray showed indwelling tubes and catheters are in place. Scattered perihilar infiltrates and bibasilar infiltrates are the same. Pleural effusion is also unchanged. Potassium today is 5.7. WBC is 4.8 hemoglobin is 7.8. Blood sugar is 87. BUN is 111 creatinine 7.46. Liver enzymes are elevated with ALT of 26 AST of 396 alkaline phosphatase of 232. Patient was reevaluated today on 10/02/2020, remains in the ICU intubated and mechanically ventilated. Patient underwent uneventful tracheostomy and PEG tube placement yesterday. Ventilator settings are assist control rate of 26 tidal volume is 550 he is on volume control plus, FiO2 50% and PEEP is at 8. ABG showed a pO2 of 97 pCO2 of 38 pH of 7.37. Patient remains on Precedex, and 0.7, norepinephrine at 0.02, fentanyl 2 mcg/kg/h, and IV fluid at KVO. Patient is receiving dialysis during my evaluation. He is hemodynamically marginal, requiring norepinephrine. My plan is to cut down on the fentanyl, hopefully that will improve his blood pressure today. Yesterday he had 2 L off after hemodialysis, and so far dialysis seems to be ongoing again today. Neurologically the patient is about the same. He opens eyes but does not follow any instructions, does not follow any commands. He grimaces to painful stimuli. Labs today showed WBC count of 13.4 hemoglobin is 8.1. Potassium is 6.3 and that would be corrected by hemodialysis. Blood sugar is 85. Patient was rest arted back on heparin drip today. It was on hold for his tracheostomy and PEG tube placement. Chest x-ray showed unchanged hazy airspace opacities and but may be a small left pleural effusion Reevaluated today on 10/03/2020, remains in the ICU, intubated and mechanically ventilated. Volume control plus with tidal volume 550, rate of 26 FiO2 50% PEEP at 8 ABG showed a pO2 of 75 pCO2 42 pH of 7.36. Blood pressure is 27. Patient remains on Precedex and on fentanyl which I plan to discontinue today. Patient is also on heparin. Remains clinically about the same, opens eyes, but not following any instructions or any commands. Chest x-ray continues to show some evidence of interstitial edema and fluid overload, patient is receiving hemodialysis during my evaluation. And the plan is to remove 2 L at least. Has been receiving dialysis on a daily basis. He is in atrial fibrillation rate of 112. He is hemodynamically stable, not requiring any pressors at this time. Mentation is basically about the same, and I have not seen any change in the last 3 days. Supposedly his EEG showed metabolic encephalopathy and swallowing patient continues to be followed by neurology regarding his anoxic brain injury. Absent today were all reviewed. PTT is 40.5 WBC count is 16.1 hemoglobin 8.29. Normal renal profile showed a BUN of 87 creatinine 6.05. Liver enzymes remain elevated. His AST is 576 alkaline phosphatase is 223. Reevaluated today on 10/04/20, remains in the ICU, intubated and mechanically ventilated. He is on assist control rate of 26, volume control +550 FiO2 50% and PEEP of 8. ABG showed a pO2 of 77 pCO2 of 37 pH of 7.40. Patient is off all narcotics and sedatives, he is also off Precedex. And today he is actually making some neurological improvement. Patient is able to follow simple instructions like squeezing hands, sticking out tongue, closing eyes, he seems to be comprehending what he is being controlled. But he is generally weak. This is the best I have seen him in the last 4 days. Patient will remain off narcotics and sedatives for today. His ventilator settings remained the same unchanged. Chest x-ray continues to show similar changes as before with some component of fluid overload, patient is still receiving dialysis. He is off antibiotics at present. Remains on tube feeding using the Nepro. I started him today on subcu heparin, he was on IV heparin yesterday, however he developed bleeding around the tracheostomy site. Hence heparin was placed on hold but today I'm placing him on subcu heparin. Patient is also on Plavix. Remains in atrial fibrillation. Patient will be undergoing hemodialysis again, and hopefully will remove another 3 L of fluid removed as removed yesterday. WBC count is 14.3 hemoglobin is 7.7. Electrolytes are normal renal profile is abnormal patient is on hemodialysis Reevaluated today on 10/05/2020, patient remains in the ICU, intubated and mechanically ventilated. Patient is on assist control rate of 26, volume control +550 FiO2 50% and PEEP remains at 8 .I cut down his FiO2 to 45%. ABG showed a pO2 of 106 pCO2 of 38 pH of 7.43. Patient remains awake, remains hemodynamically stable not requiring any pressors or inotropes. His chest x-ray showed slight worsening ofdisease in the right lower lobe, not clear whether some of it is fluid related and or infection. Hence I'm recommending that we restart him back on Zosyn. I have also recommended that we discontinue his central line today. Patient has a PICC line in place, and he has a dialysis catheter in place. I did place a new arterial line today. Chest x-ray was reviewed. And as noted earlier. Labs were all reviewed. Patient is undergoing hemodialysis again today. Over the last couple of days, significant improvement noted in his overall neurological status. Remains off narcotics and sedatives. Reevaluated today on 10/06/2020, remains in the ICU, intubated and mechanically ventilated, patient remains on the same ventilator settings, however today I cut down his PEEP to 5 instead of 8, and I kept him on 45% FiO2. Vent settings are volume control +550 rate of 26,45% FiO2 and PEEP of 8 cut it down to 5. His blood gases showed a pO2 of 117 pCO2 40 pH of 7.40. Patient is receiving hemodialysis this morning while I was examining him. Plan to remove hopefully 4 L of fluids today. A shunt remains edematous and swollen, chest x-ray showing improvement in his edema and presumptive right lower lobe airspace disease. Remains on Zosyn, WBC count is trending down. Today I plan to give him at least a trial of pressure support of 14 and CPAP of 5. Patient remains off narcotics and sedatives. He is appropriate. Following all instructions, and he is becoming more and more alert on a daily basis. WBC count today is 12.2 hemoglobin is 7.6. Basic metabolic profile is normal BUN is 69 creatinine 5.25. Reevaluated today on 10/07/2020, patient remains in the ICU, intubated and mechanically ventilated. Patient did tolerate 7 hours of pressure support of 14 and CPAP yesterday. And he is back on pressure support of 14 and CPAP again today. Patient remains awake, follows all instructions, seems to comprehend fully what he is being controlled. Minimal oozing around the tracheostomy noted. Patient was placed on Eliquis by cardiology for his underlying atrial fibrillation. No major bleeding to be concerned about at this point. Patient was on subcu heparin which I will discontinue. Remains on hemodialysis, may be dialyzed possibly today,[facility] at this point yet unless his hemodialysis is down to 3 times a week instead of daily. We'll discuss with nephrology see if with could cut down the frequency of his dialysis. In the meantime we'll continue physical therapy, continue trials of pressure support and CPAP trials of weaning. And continue antibiotics e mpirically. Continue enteral feeding, patient is not requiring any pressors or any inotropes at this point. And his mental status seems to be gradually improving on a daily basis CBC today showed a hemoglobin of 7.5 no need for dialysis at this point, but that is to be considered. ABG today showed a pO2 of 154 pCO2 27 pH of 7.46, hence I kept him on a PEEP of 5, and cut down his FiO2 to 40%. His basic metabolic profile is normal BUN is 73 creatinine 4.93. Chest x-ray today showed significant improvement compared to the last few days Objective - Vital Signs Vital signs: Vital Signs Temp 97.6 F 10/07/20 04:00 Pulse 98 10/07/20 10:00 Resp 25 H 10/07/20 10:00 BP 125/89 10/07/20 10:00 Pulse Ox 100 10/07/20 10:00 Intake & Output 10/06/20 10/07/20 10/07/20 18:59 06:59 18:59 Intake Total 4764 858 283.3 Output Total 0 0 0 Balance 4764 858 283.3 Weight 132.5 kg Intake: IV 143 156 49.3 0.9 Normal Saline 33 36 9.3 Pressure Bag Sodium Chloride 0.9% 500 110 120 40 ml @ 10 mls/hr IV .Q24H [facility] Rx#:[id number] Tube Feeding 561 612 204 Hemodialysis 4000 Other 60 90 30 Output: Urine 0 0 0 Other: Voiding Method Incontinent Incontinent Incontinent # Voids 0 # Bowel Movements 1 ABP, PAP, CO, CI - Last Documented Arterial Blood Pressure 105/53 - Exam Physical Exam: Revealed 59-year-old white male intubated and mechanically ventilated, presently on pressure support of 14 and CPAP 5. Head: Atraumatic, normocephalic. Tracheostomy is intact. Minimal oozing of blood around the tracheostomy site noted today. . HEENT:[Neck is supple.] [No neck masses.] [No thyromegaly.] [No JVD.] The left, EOMI, nonicteric, moist mucous membranes. Chest: [Symmetrical chest expansion, rhonchi crackles persist bilaterally. Cardiac Exam: Irregular irregular rhythm, 2/6 systolic murmur thought the precordium. Distant S1 and S2. Abdomen: [Obese, Soft, nontender, no megaly, no rebound, no guarding, negative bowel sounds. Scrotal edema is slightly improved. Extremities: [No clubbing, 3+ bipedal edema, no cyanosis.] Diminished distal pulses bilaterally.. Neurological Exam: Awake, follows simple instructions, but generally weak. Skin: No rashes. Psychiatric: Depressed mood, normal affect, follows all simple instructions today. - Labs CBC & Chem 7: 10/07/20 04:20 10/07/20 04:20 Labs: Abnormal Lab Results - Last 24 Hours (Table) 10/06/20 10/06/20 10/07/20 Range/Units 12:27 18:07 04:20 RBC 2.38 L (4.30-5.90) m/uL Hgb 7.5 L (13.0-17.5) gm/dL Hct 23.7 L (39.0-53.0) % RDW 16.9 H (11.5-15.5) % Neutrophils # 8.1 H (1.3-7.7) k/uL Lymphocytes # 0.8 L (1.0-4.8) k/uL ABG pH (7.35-7.45) ABG pO2 (83-108) mmHg ABG HCO3 (21-25) mmol/L ABG Total CO2 (19-24) mmol/L ABG O2 Saturation (94-97) % Sodium (137-145) mmol/L BUN (9-20) mg/dL Creatinine (0.66-1.25) mg/dL Glucose (74-99) mg/dL POC Glucose (mg/dL) 103 H 105 H (75-99) mg/dL Phosphorus (2.5-4.5) mg/dL Magnesium (1.6-2.3) mg/dL 10/07/20 10/07/20 Range/Units 04:20 05:51 RBC (4.30-5.90) m/uL Hgb (13.0-17.5) gm/dL Hct (39.0-53.0) % RDW (11.5-15.5) % Neutrophils # (1.3-7.7) k/uL Lymphocytes # (1.0-4.8) k/uL ABG pH 7.46 H (7.35-7.45) ABG pO2 154 H (83-108) mmHg ABG HCO3 27 H (21-25) mmol/L ABG Total CO2 28 H (19-24) mmol/L ABG O2 Saturation 99.8 H (94-97) % Sodium 135 L (137-145) mmol/L BUN 73 H (9-20) mg/dL Creatinine 4.93 H (0.66-1.25) mg/dL Glucose 108 H (74-99) mg/dL POC Glucose (mg/dL) (75-99) mg/dL Phosphorus 5.7 H (2.5-4.5) mg/dL Magnesium 2.6 H (1.6-2.3) mg/dL Assessment and Plan Assessment: Impression: Acute hypoxic respiratory failure secondary to cardiac arrest. Patient presented with V. fib cardiac arrest. Status post cardiac catheterization and s tenting of the circumflex Severe ischemic cardiomyopathy and LV dysfunction. Hypoxic encephalopathy. Significantly improved over the last few days. Acute kidney injury secondary to acute tubular necrosis and cardiac arrest. Patient is requiring hemodialysis. Shock liver. Improved. Paroxysmal atrial fibrillation. Patient is now on Eliquis Hypothyroidism. History of depression. Fluid overload with extensive edema in lower and upper extremities as well as scrotal swelling noted. Improving with dialysis. Status post tracheostomy and PEG tube placement on 10/01/2020. Recommendation: Continue ventilatory support. Continue daily trials of pressure support and CPAP as long as tolerated. Using pressure support of 14. Continue Nutritional support/enteral feeding Discontinue subcu heparin and use Eliquis. Monitor for any signs of bleeding. Continue with PICC line, flush PICC line as needed as per protocol. Continue hemodialysis. Continue GI and DVT prophylaxis. Continue physical therapy Discussed with nephrology to possibly cut down on the frequency of hemodialysis, if this could be cut down to 3 times per week, then we can consider transferring the patient to select care specialty early next week Critical care time is over 30 minutes. We'll continue to follow, Time with Patient: Greater than 30
[2020-10-07 12:22] LABS: Glucose,Whole Blood 90 mg/dL (75-99)
--- NOTE | 2020-10-07 12:49 | PN ---
PROGRESS NOTE Patient is seen for followup for acute kidney injury secondary to acute tubular necrosis secondary to hypotension currently severely oliguric and dialysis dependent. The patient is currently being dialyzed on a daily basis secondary to severe volume overload. His overall general condition has improved. He is awake. He has tolerated CPAP very well yesterday and again today. He continues to have no significant urine output. Scrotal edema has improved as well. PHYSICAL EXAMINATION: Blood pressure 113/57, heart rate of 101 per minute. Patient is afebrile. Examination of the heart S1, S2. Examination of the lungs, bilateral breath sounds are heard. Abdomen is soft. Examination of lower extremities shows edema 3+ bilaterally with significant scrotal edema, slowly improving. LABS: Show hemoglobin 7.5 sodium 135, potassium 3.7, BUN 73, serum creatinine 4.93. ASSESSMENT: 1. Acute kidney injury acute tubular necrosis secondary to hypotension and shock and IV contrast as well. The patient remains oliguric and dialysis dependent. He is being dialyzed on a daily basis. However, over the next few days, we will decrease his frequency to 3-4 times a week. 2. Severe volume overload slowly improving. 3. Acute hypoxic respiratory failure currently on the vent. 4. Status post cardiac arrest. 5. Coronary artery disease status post coronary stent placement. 6. Cardiomyopathy, ejection fraction 20-25%. PLAN: Hemodialysis in a.m. and we will try to decrease the frequency of dialysis after Thursday's treatment. BERENICE / MICHAEL: [id number] /
--- NOTE | 2020-10-07 14:49 | P.PN ---
Subjective Progress Note Date: 10/07/20 (delayed charting seen at 0900) Principal diagnosis: v-fib arrest Patient is a 59-year-old male with a history of hypertension, hypothyroidism, and obesity who presented to the ER after cardiac arrest in the field. He had multiple rounds of CPR, Epi, and Defib prior to obtaining ROSC. It appears that his down time in the field was approximately 30 minutes on review of the EMS run sheet. He was intubated and sedated he underwent a left heart cath with stent to the LAD and impella placement. Echocardiogram demonstrated an EF of less than 20% with global hypokenesis. He was determined to be in cardiogenic shock requiring dopamine, dobutamine, and levophed. He has required a Nimbex drip to maintain adequate ventilation until 09/20/20. He demonstrated shock liver on arrival. He has also had progressive anuric renal failure, nephrology was consulted HD was initiated on 09/21/20. He had one abnormal EEG with worsening of EEG on 09/20/20. We have been unable to wean sedation due to agitation and there are concerns for severe anoxic encephalopathy. His CXR was worsening and procalcitonin was elevated and he was started on zosyn with concerns for possible underlying PNA. He had not been awake or following commands with sedation holidays. On 09/22/20 he clear shook head no in response to questions. On 09/24 patient went into A fib with RVR during sedation holiday and amio gtt was started. CT head showed age- related atrophy without acute intracranial process. PG and trach were attempted on 09/29 but the patient desaturated. He has been on empiric zosyn for possible PNA. He was taken off propofolo due to hhypertriglyceridemia. Trach and peg were sucessfully placed on 10/01/20. He did have some postoperative bleeding around the trach site secondary to his IV heparin which was changed to subcutaneous heparin. He has had intermittent A. fib. The bleeding from his trach decreased and he was started on Eliquis. Patient seen and examined at bedside. He is currently sitting in the chair and was placed on SIMV. He is able to lift both arms office chair today and wiggle his toes. He does shake his head yes to feeling short of breath when he was on SIMV yesterday. General: non toxic, no distress, appears at stated age, obese Derm: warm, dry Head: atraumatic, normocephalic, symmetric Eyes: no lid lesion, anicteric sclera Mouth: no lip lesion, mucus membranes dry with lip cracking Cardiovascular: S1S2 reg, no murmur, positive posterior tibial pulse bilateral, Lungs: Rhonchi bilateral, no accessory muscle use him on vent, trach in place Abdominal: soft, nontender to palpation, no guarding, no appreciable organomegaly, Ext: no gross muscle atrophy, diffuse anasarca, no contractures Neuro: wiggling toes possibly to commands. no squeezing hands, shakes head yes to pain Psych: Awake, appears comfortable, following commands, and does not appear anxious. V. fib arrest due to ST segment elevated myocardial infarction status post PCI to the circumflex and impella placement Acute systolic congestive heart failure Ischemic cardiomyopathy with ejection fraction less than 20% P. A fib - dopamine off 09/23/20, dobutamine off, levophed off by 09/22/20 - maintain BP - cardio recs - ASA, Plavix - Amio - On metoprolol. Continue to monitor blood pressure closely. No MARY inhibitor with hopes for possible renal recovery until cleared by nephrology. - LFTs are down trending. We'll resume statin therapy. Generalized Dermatitis -Acute skin clean and dry Hypoxic encephalopathy - neuro recs appreciated: unlikely for major quick recovery, plan for LTACH Acute kidney injury secondary to hypoperfusion and likely ATN Hyperphosphatemia Hyperkalemia - nephrology recs - HD Thursday and then daily through Thursday, then likely could go to 4 times weekly once fluid status is improved. - Avoid nephrotoxic agents - maintain map >65 Acute hypoxic respiratory failure, Pneumonia possible gram negative completed treatment - off zosyn - pulm recs - pulm hygeine Anemia Thrombocytosis, reactive, resolved - component of acute blood loss anemia after trach - follow CBC - no indication for transfusion at this point in time. Morbid obesity with BMI 37.7 Shock liver, resolved Cardiogenic shock, resolved Hypothyroidism Thrombocytopenia, resolved Goal is for transfer to LTACH in the near future. Will need to be off of daily dialysis. We'll need to confer with cardiology to determine if patient will need a LifeVe st for AICD prior to discharge or if we should obtain repeat echo. DVT prophylaxis: Eliquis Discussed with: Nursing A total of 35 minutes was spent on the care of this complex patient more than 50% of the time was spent in counseling and care coordination. Objective - Vital Signs Vital signs: Vital Signs Temp 97.6 F 10/07/20 04:00 Pulse 93 10/07/20 14:00 Resp 19 10/07/20 14:00 BP 123/73 10/07/20 14:00 Pulse Ox 100 10/07/20 14:00 Intake & Output 10/06/20 10/07/20 10/07/20 18:59 06:59 18:59 Intake Total 4764 858 572 Output Total 0 0 0 Balance 4764 858 572 Weight 132.5 kg Intake: IV 143 156 104 0.9 Normal Saline 33 36 24 Pressure Bag Sodium Chloride 0.9% 500 110 120 80 ml @ 10 mls/hr IV .Q24H ON LICENSE OF [facility] Rx#:[id number] Tube Feeding 561 612 408 Hemodialysis 4000 Other 60 90 60 Output: Urine 0 0 0 Other: Voiding Method Incontinent Incontinent Incontinent # Voids 0 # Bowel Movements 1 ABP, PAP, CO, CI - Last Documented Arterial Blood Pressure 112/64 - Labs CBC & Chem 7: 10/07/20 04:20 10/07/20 04:20 Labs: Abnormal Lab Results - Last 24 Hours (Table) 10/06/20 10/07/20 10/07/20 Range/Units 18:07 04:20 04:20 RBC 2.38 L (4.30-5.90) m/uL Hgb 7.5 L (13.0-17.5) gm/dL Hct 23.7 L (39.0-53.0) % RDW 16.9 H (11.5-15.5) % Neutrophils # 8.1 H (1.3-7.7) k/uL Lymphocytes # 0.8 L (1.0-4.8) k/uL ABG pH (7.35-7.45) ABG pO2 (83-108) mmHg ABG HCO3 (21-25) mmol/L ABG Total CO2 (19-24) mmol/L ABG O2 Saturation (94-97) % Sodium 135 L (137-145) mmol/L BUN 73 H (9-20) mg/dL Creatinine 4.93 H (0.66-1.25) mg/dL Glucose 108 H (74-99) mg/dL POC Glucose (mg/dL) 105 H (75-99) mg/dL Phosphorus 5.7 H (2.5-4.5) mg/dL Magnesium 2.6 H (1.6-2.3) mg/dL 10/07/20 Range/Units 05:51 RBC (4.30-5.90) m/uL Hgb (13.0-17.5) gm/dL Hct (39.0-53.0) % RDW (11.5-15.5) % Neutrophils # (1.3-7.7) k/uL Lymphocytes # (1.0-4.8) k/uL ABG pH 7.46 H (7.35-7.45) ABG pO2 154 H (83-108) mmHg ABG HCO3 27 H (21-25) mmol/L ABG Total CO2 28 H (19-24) mmol/L ABG O2 Saturation 99.8 H (94-97) % Sodium (137-145) mmol/L BUN (9-20) mg/dL Creatinine (0.66-1.25) mg/dL Glucose (74-99) mg/dL POC Glucose (mg/dL) (75-99) mg/dL Phosphorus (2.5-4.5) mg/dL Magnesium (1.6-2.3) mg/dL
--- NOTE | 2020-10-07 17:40 | P.PN ---
Subjective Progress Note Date: 10/07/20 CHIEF COMPLAINT: Vent-dependent respiratory failure HISTORY OF PRESENT ILLNESS: The patient is a 47-year-old male status post tracheostomy PEG tube placement. He is laying in bed. Prior bleeding from t racheostomy site resolved per discussion with nursing. Heparin is now discontinued. He has been transitioned to Eliquis. ROS: Patient has trach. No recent chest pain. PHYSICAL EXAM: VITAL SIGNS: Reviewed CONSTITUTIONAL: Well developed and in no acute distress. EYES: Conjuctivae without sclera icterus. Extraocular movements grossly intact. HEAD, EARS, NOSE, THROAT: Moist buccal mucosa. Head is atraumatic, normocephalic. Hears conversational speech. No nasal drainage. NECK: Trach site intact. No active venous or arterial bleeding. RESPIRATORY: Non-labored respirations and equal bilateral excursions. CARDIOVASCULAR: Palpable 2+ radial pulses. ABDOMEN: Protuberant. MUSCULOSKELETAL: No gross deformity of the lower extremities noted. No clubbing. No cyanosis. SKIN: Good skin turgor. Well perfused. NEUROLOGIC: Cranial nerves II through XII grossly intact. No focal or laterali zing signs. PSYCH: Appropriate affect. Alert and oriented to person, place and time. CLINICAL LABS: Reviewed. ASSESSMENT: 1. Vent dependent respiratory failure 2. Tracheostomy with recent bleeding PLAN: 1. His bleeding along his tracheostomy site is resolved. He will still need monitoring while on Eliquis regarding his hemoglobin Objective - Vital Signs Vital signs: Vital Signs Temp 97.6 F 10/07/20 04:00 Pulse 92 10/07/20 17:00 Resp 18 10/07/20 17:00 BP 116/70 10/07/20 17:00 Pulse Ox 98 10/07/20 17:00 Intake & Output 10/06/20 10/07/20 10/07/20 18:59 06:59 18:59 Intake Total 4764 858 794 Output Total 0 0 0 Balance 4764 858 794 Weight 132.5 kg Intake: IV 143 156 143 0.9 Normal Saline 33 36 33 Pressure Bag Sodium Chloride 0.9% 500 110 120 110 ml @ 10 mls/hr IV .Q24H [facility] Rx#:[id number] Tube Feeding 561 612 561 Hemodialysis 4000 Other 60 90 90 Output: Urine 0 0 0 Other: Voiding Method Incontinent Incontinent Incontinent # Voids 0 # Bowel Movements 1 1 ABP, PAP, CO, CI - Last Documented Arterial Blood Pressure 129/73 - Labs CBC & Chem 7: 10/07/20 04:20 10/07/20 04:20 Labs: Abnormal Lab Results - Last 24 Hours (Table) 10/06/20 10/07/20 10/07/20 Range/Units 18:07 04:20 04:20 RBC 2.38 L (4.30-5.90) m/uL Hgb 7.5 L (13.0-17.5) gm/dL Hct 23.7 L (39.0-53.0) % RDW 16.9 H (11.5-15.5) % Neutrophils # 8.1 H (1.3-7.7) k/uL Lymphocytes # 0.8 L (1.0-4.8) k/uL ABG pH (7.35-7.45) ABG pO2 (83-108) mmHg ABG HCO3 (21-25) mmol/L ABG Total CO2 (19-24) mmol/L ABG O2 Saturation (94-97) % Sodium 135 L (137-145) mmol/L BUN 73 H (9-20) mg/dL Creatinine 4.93 H (0.66-1.25) mg/dL Glucose 108 H (74-99) mg/dL POC Glucose (mg/dL) 105 H (75-99) mg/dL Phosphorus 5.7 H (2.5-4.5) mg/dL Magnesium 2.6 H (1.6-2.3) mg/dL 10/07/20 Range/Units 05:51 RBC (4.30-5.90) m/uL Hgb (13.0-17.5) gm/dL Hct (39.0-53.0) % RDW (11.5-15.5) % Neutrophils # (1.3-7.7) k/uL Lymphocytes # (1.0-4.8) k/uL ABG pH 7.46 H (7.35-7.45) ABG pO2 154 H (83-108) mmHg ABG HCO3 27 H (21-25) mmol/L ABG Total CO2 28 H (19-24) mmol/L ABG O2 Saturation 99.8 H (94-97) % Sodium (137-145) mmol/L BUN (9-20) mg/dL Creatinine (0.66-1.25) mg/dL Glucose (74-99) mg/dL POC Glucose (mg/dL) (75-99) mg/dL Phosphorus (2.5-4.5) mg/dL Magnesium (1.6-2.3) mg/dL
[2020-10-07 18:18] LABS: Glucose,Whole Blood 95 mg/dL (75-99)
[2020-10-07] MEDS: polyethylene glycoL 3350 17 GM POWD.PACK PO SCH (21:26)
[2020-10-08 05:02] LABS: Glucose,Whole Blood 115 mg/dL (75-99)
[2020-10-08 05:03] LABS: ABG Base Excess 0.9 mmol/L; ABG HCO3 25 mmol/L (21-25); ABG PCO2 36 mmHg (35-45); ABG PH 7.45 (7.35-7.45); ABG PO2 117 mmHg (83-108); ABG TCO2 26 mmol/L (19-24); Allen Test Performed? Yes
[2020-10-08 05:14] LABS: Anisocytosis Slight; HCT 22.8 % (39.0-53.0); HGB 7.1 gm/dL (13.0-17.5); Hypochromasia Slight; MCH 31.2 pg (25.0-35.0); MCHC 31.2 g/dL (31.0-37.0); MCV 99.9 fL (80.0-100.0); Macrocytosis Slight; Mean Platelet Volume 8.1; Platelet Count 331 k/uL (150-450); RBC 2.28 m/uL (4.30-5.90); RDW 16.8 % (11.5-15.5); WBC 8.9 k/uL (3.8-10.6)
[2020-10-08 05:23] LABS: Albumin 2.4 g/dL (3.5-5.0); Calcium 8.9 mg/dL (8.4-10.2); Magnesium 2.8 mg/dL (1.6-2.3); Potassium 3.9 mmol/L (3.5-5.1); Total Bilirubin 0.9 mg/dL (0.2-1.3)
[2020-10-08] MEDS: LEVOTHYROXINE 50 MCG TAB PO SCH (06:26)
--- NOTE | 2020-10-08 08:05 | XR ---
EXAMINATION TYPE: XR chest 1V portable DATE OF EXAM: 10/08/2020 COMPARISON: 10/07/2020 INDICATION: Short of breath TECHNIQUE: Single frontal view of the chest is obtained. FINDINGS: The heart size is enlarged. The pulmonary vasculature is somewhat prominent. Mild diffuse infiltrate is present slightly greater in the right perihilar region. Findings are sligh tly worsened over the interval. Left lower lobe consolidation may be increasing in density. Tracheostomy tube is in the midline. Right-sided central venous catheter tips are within the superior vena cava right atrial junction, stable position IMPRESSION: 1. Slight worsening of the mild bilateral infiltrate. Correlate for pneumonia. Some atelectasis may b e present.
--- NOTE | 2020-10-08 08:48 | P.PN ---
Subjective Patient is seen in follow-up for acute kidney injury. Remains off vasopressors. On oral amiodarone and metoprolol for A. fib. Sitting up in chair. Alert. Vital signs: Stable. General: The patient appeared well nourished and normally developed. HEENT: Tracheostomy noted. LUNGS: Breath sounds decreased. HEART: Regular rate and rhythm. Abdomen: Soft, no distention. EXTREMITITES: 1+ edema. Objective - Vital Signs Vital signs: Vital Signs Temp 98.5 F 10/08/20 05:00 Pulse 100 10/08/20 06:00 Resp 23 10/08/20 06:00 BP 106/63 10/08/20 05:00 Pulse Ox 100 10/08/20 06:00 Intake & Output 10/07/20 10/08/20 10/08/20 18:59 06:59 18:59 Intake Total 858 901 Output Total 0 0 Balance 858 901 Weight 136.1 kg Intake: IV 156 226 0.9 Normal Saline 36 36 Pressure Bag Piperacillin-Tazobactam 3 100 .375 gm In Sodium Chloride 0.9% 100 ml @ 25 mls/hr IVPB Q12HR [facility] Rx #:[id number] Sodium Chloride 0.9% 500 120 90 ml @ 10 mls/hr IV .Q24H [facility] Rx#:[id number] Tube Feeding 612 585 Other 90 90 Output: Urine 0 0 Other: Voiding Method Incontinent Incontinent # Voids 0 # Bowel Movements 1 ABP, PAP, CO, CI - Last Documented Arterial Blood Pressure 148/76 - Labs CBC & Chem 7: 10/08/20 05:00 10/08/20 05:00 Labs: Abnormal Lab Results - Last 24 Hours (Table) 10/08/20 10/08/20 10/08/20 Range/Units 04:58 05:00 05:00 RBC 2.28 L (4.30-5.90) m/uL Hgb 7.1 L (13.0-17.5) gm/dL Hct 22.8 L (39.0-53.0) % RDW 16.8 H (11.5-15.5) % ABG pO2 117 H (83-108) mmHg ABG Total CO2 26 H (19-24) mmol/L ABG O2 Saturation 99.0 H (94-97) % Sodium 134 L (137-145) mmol/L Chloride 97 L (98-107) mmol/L BUN 95 H (9-20) mg/dL Creatinine 5.87 H (0.66-1.25) mg/dL Glucose 108 H (74-99) mg/dL POC Glucose (mg/dL) (75-99) mg/dL Magnesium 2.8 H (1.6-2.3) mg/dL AST 99 H (17-59) U/L Alkaline Phosphatase 170 H (38-126) U/L Total Protein 5.0 L (6.3-8.2) g/dL Albumin 2.4 L (3.5-5.0) g/dL 10/08/20 Range/Units 05:00 RBC (4.30-5.90) m/uL Hgb (13.0-17.5) gm/dL Hct (39.0-53.0) % RDW (11.5-15.5) % ABG pO2 (83-108) mmHg ABG Total CO2 (19-24) mmol/L ABG O2 Saturation (94-97) % Sodium (137-145) mmol/L Chloride (98-107) mmol/L BUN (9-20) mg/dL Creatinine (0.66-1.25) mg/dL Glucose (74-99) mg/dL POC Glucose (mg/dL) 115 H (75-99) mg/dL Magnesium (1.6-2.3) mg/dL AST (17-59) U/L Alkaline Phosphatase (38-126) U/L Total Protein (6.3-8.2) g/dL Albumin (3.5-5.0) g/dL Assessment and Plan Plan: Assessment: 1. Acute kidney injury secondary to ATN secondary to cardiac arrest and cardiogenic shock. Oliguric. Started on hemodialysis September 21. Has a permacath. 2. Status post cardiac arrest. 3. Coronary artery disease status post catheterization with stent placement to the circumflex on 09/17/2020. 4. Cardiogenic shock status post dopamine and dobutamine. Ejection fraction 20-25%. 5. Metabolic acidosis secondary to acute kidney injury. Status post bicarb drip. Improved. Now on oral bicarbonate. 6. Acute hypoxic respiratory failure. Status post tracheostomy. 7. Hypocalcemia secondary to acute kidney injury. Replaced. Better. 8. Hyperphosphatemia secondary to acute kidney injury maintained on PhosLo. 9. A. fib with RVR maintained on oral amiodarone and metoprolol. 10. Hyponatremia secondary to acute kidney injury. Hypervolemic. 11. Hyperkalemia secondary to acute kidney injury and metabolic acidosis. Resolved. Plan: Maintain tube feeds. Hemodialysis today and again tomorrow. Monitor for renal recovery.
[2020-10-08] MEDS: PIPERACILLIN-TAZOBACTAM 3.375 GM in SODIUM CHLORIDE 0.9% 100 ML IVPB SCH ×2 (09:25→22:42)
[2020-10-08] MEDS: AMIODARONE 200 MG TAB PO SCH ×2 (09:26→22:41)
[2020-10-08] MEDS: SODIUM BICARBONATE TAB 650 MG TAB PO SCH ×2 (09:26→22:40)
[2020-10-08] MEDS: APIXABAN 2.5 MG TABLET PO SCH ×2 (09:26→22:40)
[2020-10-08] MEDS: CALCIUM ACETATE 667 MG TAB PO SCH ×4 (09:26→22:41)
[2020-10-08] MEDS: ATORVASTATIN 40 MG TAB PO SCH (09:27)
[2020-10-08] MEDS: ASPIRIN 81 MG PO SCH (09:27)
[2020-10-08] MEDS: CLOPIDOGREL 75 MG TAB PO SCH (09:27)
[2020-10-08] MEDS: lisinopriL 5 MG TAB PO SCH (09:27)
[2020-10-08] MEDS: PANTOPRAZOLE 40 MG/10 ML VIAL IVP SCH (09:27)
[2020-10-08] MEDS: SODIUM CHLORIDE 0.9% 500 ML IV SCH (09:29)
[2020-10-08] MEDS: IPRATROPIUM-ALBUTEROL 3 ML NEB INHALATION SCH ×4 (09:39→19:12)
[2020-10-08] MEDS: METOPROLOL SUCCINATE (ER) 25 MG TAB.ER.24H PO SCH (10:05)
--- NOTE | 2020-10-08 10:41 | P.PN ---
Subjective Progress Note Date: 10/08/20 Principal diagnosis: Cardiac arrest, and acute hypoxic respiratory failure On 10/08/2020 patient seen in follow-up in the intensive care unit. Patient is awake and alert, his nodding his head appropriately to verbal questioning, has not attempted to verbally respond, he is following verbal commands, he is moving all 4 extremities although he is very generally weak. He is currently sitting up in a recliner, tolerating it well, yesterday he tolerated a total of 9 hours of pressure-support of 14 and CPAP of 5, he was placed on assist-control mode of ventilation at night with a rate of 26, tidal volume of 550, FiO2 of 40% and PEEP of 5. This morning he is back on pressure-support of 15 and CPAP of 5 this morning, tolerating it well. O2 sat is 100% on the pressure-support settings with FiO2 of 40%. Today's blood gas was reviewed showing pO2 of 117, pCO2 of 36, and pH of 7.45, and this was done on assist-control mode of ventilation with FiO2 of 40%. His white count today is 8.9, hemoglobin is 7.1, sodium is 134, potassium is 3.9, chloride is 97, CO2 is 25, anion gap is 95, creatinine is 5.87. Chest x-ray today shows slight worsening of the mid bilateral infil trates. Patient remains on IV Lasix 60 mg every 8 hours, his urine output is 50-60 ML per hour, overall she is still generally fluid overloaded, his last hemodialysis session was on 10/05/2020 with removal of 4 L of fluid. Otherwise he is breathing fairly comfortably. No significant secretions out of the tracheostomy. She was started on Eliquis yesterday on 2.5 mg twice daily, no significant bleeding from around the trach site. Lung sounds are diminished at the bases with some scattered rhonchi. Patient has had no fever or chills. Currently not on any antibiotics. He has completed a course of Zosyn which has been discontinued, blood and sputum cultures have shown no growth. Hemodyna micacarisa he remains stable, he is in atrial fibrillation with a controlled rate. He is tolerating tube feedings and patient is receiving Nepro at 51 with a goal of 51 and standard water flushes. Objective - Vital Signs Vital signs: Vital Signs Temp 98.2 F 10/08/20 08:00 Pulse 87 10/08/20 10:00 Resp 14 10/08/20 10:00 BP 115/81 10/08/20 09:00 Pulse Ox 100 10/08/20 10:00 Intake & Output 10/07/20 10/08/20 10/08/20 18:59 06:59 18:59 Intake Total 858 901 286 Output Total 0 0 Balance 858 901 286 Weight 136.1 kg Intake: IV 156 226 52 0.9 Normal Saline 36 36 12 Pressure Bag Piperacillin-Tazobactam 3 100 .375 gm In Sodium Chloride 0.9% 100 ml @ 25 mls/hr IVPB Q12HR [facility] Rx #:[id number] Sodium Chloride 0.9% 500 120 90 40 ml @ 10 mls/hr IV .Q24H [facility] Rx#:[id number] Tube Feeding 612 585 204 Other 90 90 30 Output: Urine 0 0 Other: Voiding Method Incontinent Incontinent Incontinent # Voids 0 # Bowel Movements 1 ABP, PAP, CO, CI - Last Documented Arterial Blood Pressure 125/76 - Exam GENERAL EXAM: Alert, pleasant, 59-year-old white male, on pressure-support of 14 with CPAP of 5 and FiO2 of 40%, patient is trached to the ventilator, sitting up in a recliner, comfortable in no apparent distress. HEAD: Normocephalic/atraumatic. EYES: Normal reaction of pupils, equal size. Conjunctiva pink, sclera white. NOSE: Clear with pink turbinates. THROAT: No erythema or exudates. NECK: No masses, no JVD, no thyroid enlargement, no adenopathy. Midline trac heostomy in place, slight oozing from around the trach site, patient is connected to the ventilator currently with FiO2 of 40%, pressure-support mode of ventilation CHEST: No chest wall deformity. Symmetrical expansion. LUNGS: Equal air entry with no crackles, wheeze, rhonchi or dullness. CVS: Irregular rate and rhythm, normal S1 and S2, no gallops, no murmurs, no rubs ABDOMEN: Soft, nontender. No hepatosplenomegaly, normal bowel sounds, no guarding or rigidity. PEG tube is in place connected to a feeding pump, patient is currently receiving Nepro at 51 ML per hour EXTREMITIES: No clubbing, generalized edema, and 1+ lower extremity edema and upper extremity edema, scrotal edema and some abdominal edema no cyanosis, 2+ pulses and upper and lower extremities. MUSCULOSKELETAL: Muscle strength and tone normal. SPINE: No scoliosis or deformity SKIN: No rashes CENTRAL NERVOUS SYSTEM: Alert and oriented -3. No focal deficits, tone is normal in all 4 extremities. PSYCHIATRIC: Alert and oriented -3. Appropriate affect. Intact judgment and insight. - Labs CBC & Chem 7: 10/08/20 05:00 10/08/20 05:00 Labs: Abnormal Lab Results - Last 24 Hours (Table) 10/08/20 10/08/20 10/08/20 Range/Units 04:58 05:00 05:00 RBC 2.28 L (4.30-5.90) m/uL Hgb 7.1 L (13.0-17.5) gm/dL Hct 22.8 L (39.0-53.0) % RDW 16.8 H (11.5-15.5) % ABG pO2 117 H (83-108) mmHg ABG Total CO2 26 H (19-24) mmol/L ABG O2 Saturation 99.0 H (94-97) % Sodium 134 L (137-145) mmol/L Chloride 97 L (98-107) mmol/L BUN 95 H (9-20) mg/dL Creatinine 5.87 H (0.66-1.25) mg/dL Glucose 108 H (74-99) mg/dL POC Glucose (mg/dL) (75-99) mg/dL Magnesium 2.8 H (1.6-2.3) mg/dL AST 99 H (17-59) U/L Alkaline Phosphatase 170 H (38-126) U/L Total Protein 5.0 L (6.3-8.2) g/dL Albumin 2.4 L (3.5-5.0) g/dL 10/08/20 Range/Units 05:00 RBC (4.30-5.90) m/uL Hgb (13.0-17.5) gm/dL Hct (39.0-53.0) % RDW (11.5-15.5) % ABG pO2 (83-108) mmHg ABG Total CO2 (19-24) mmol/L ABG O2 Saturation (94-97) % Sodium (137-145) mmol/L Chloride (98-107) mmol/L BUN (9-20) mg/dL Creatinine (0.66-1.25) mg/dL Glucose (74-99) mg/dL POC Glucose (mg/dL) 115 H (75-99) mg/dL Magnesium (1.6-2.3) mg/dL AST (17-59) U/L Alkaline Phosphatase (38-126) U/L Total Protein (6.3-8.2) g/dL Albumin (3.5-5.0) g/dL Assessment and Plan Plan: Assessment: #1. Acute hypoxic respiratory failure secondary to acute V. fib cardiac arrest and ST elevated myocardial infarction. Status post cardiac catheterization and stenting of the circumflex #2. Severe ischemic cardiomyopathy and LV dysfunction and EF of 20% #3. Acute hypoxic encephalopathy, improving #4. Acute kidney injury secondary to acute tubular necrosis and cardiac arrest, patient is currently requiring hemodialysis #5. Acute shock liver, improving #6. Paroxysmal atrial fibrillation, currently remains in atrial fibrillation with a controlled rate, patient is now on Eliquis #6. Hypothyroidism #7. History of depression #8. Fluid overload with extensive generalized edema in upper and lower extremities as well as scrotal swelling. Improving with hemodialysis #9. Status post tracheostomy and PEG tube placement on 10/01/2020 Plan: We'll drop the pressure-support down to 10 FiO2 down to 35% Continue IV Lasix Patient is supposed to get her hemodialysis treatment Still generally fluid overload Neurologically he is significantly improved, he is awake and alert, nodding his head appropriately to questions Following commands, moving 4 extremities Hemodynamically stable, continue Eliquis, monitor for increased bleeding around the trach site Continue tube feedings Physical therapy on a daily basis We'll continue to closely follow Discharge planning is in progress to LTAC possibly later this week if looking at the patient down to 3-4 hemodialysis treatments per week I performed a history & physical examination of the patient and discussed their management with my nurse practitioner, Zoë Adhikari. I reviewed the nurse practitioner's note and agree with the documented findings and plan of care. Lung sounds are positive for diminished breath sounds. The findings and the impression was discussed with the patient. I attest to the documentation by the nurse practitioner. Time with Patient: Greater than 30
--- NOTE | 2020-10-08 11:49 | P.PN ---
Subjective Progress Note Date: 10/08/20 Principal diagnosis: Respiratory failure Patient is awake and alert in the chair. He is receiving dialysis. Denies pain. Eloquis was started yesterday in addition to Plavix. Minimal bloody drainage around the tracheostomy site. Objective - Vital Signs Vital signs: Vital Signs Temp 98.2 F 10/08/20 08:00 Pulse 87 10/08/20 10:00 Resp 14 10/08/20 10:00 BP 115/81 10/08/20 09:00 Pulse Ox 100 10/08/20 10:00 Intake & Output 10/07/20 10/08/20 10/08/20 18:59 06:59 18:59 Intake Total 858 901 286 Output Total 0 0 Balance 858 901 286 Weight 136.1 kg 136.1 kg Intake: IV 156 226 52 0.9 Normal Saline 36 36 12 Pressure Bag Piperacillin-Tazobactam 3 100 .375 gm In Sodium Chloride 0.9% 100 ml @ 25 mls/hr IVPB Q12HR [facility] Rx #:[id number] Sodium Chloride 0.9% 500 120 90 40 ml @ 10 mls/hr IV .Q24H [facility] Rx#:[id number] Tube Feeding 612 585 204 Other 90 90 30 Output: Urine 0 0 Other: Voiding Method Incontinent Incontinent Incontinent # Voids 0 # Bowel Movements 1 ABP, PAP, CO, CI - Last Documented Arterial Blood Pressure 125/76 - Exam Tracheostomy and PEG tube catheters in place without evidence of bleeding or infection at this time. - Labs CBC & Chem 7: 10/08/20 05:00 10/08/20 05:00 Labs: Abnormal Lab Results - Last 24 Hours (Table) 10/08/20 10/08/20 10/08/20 Range/Units 04:58 05:00 05:00 RBC 2.28 L (4.30-5.90) m/uL Hgb 7.1 L (13.0-17.5) gm/dL Hct 22.8 L (39.0-53.0) % RDW 16.8 H (11.5-15.5) % ABG pO2 117 H (83-108) mmHg ABG Total CO2 26 H (19-24) mmol/L ABG O2 Saturation 99.0 H (94-97) % Sodium 134 L (137-145) mmol/L Chloride 97 L (98-107) mmol/L BUN 95 H (9-20) mg/dL Creatinine 5.87 H (0.66-1.25) mg/dL Glucose 108 H (74-99) mg/dL POC Glucose (mg/dL) (75-99) mg/dL Magnesium 2.8 H (1.6-2.3) mg/dL AST 99 H (17-59) U/L Alkaline Phosphatase 170 H (38-126) U/L Total Protein 5.0 L (6.3-8.2) g/dL Albumin 2.4 L (3.5-5.0) g/dL 10/08/20 Range/Units 05:00 RBC (4.30-5.90) m/uL Hgb (13.0-17.5) gm/dL Hct (39.0-53.0) % RDW (11.5-15.5) % ABG pO2 (83-108) mmHg ABG Total CO2 (19-24) mmol/L ABG O2 Saturation (94-97) % Sodium (137-145) mmol/L Chloride (98-107) mmol/L BUN (9-20) mg/dL Creatinine (0.66-1.25) mg/dL Glucose (74-99) mg/dL POC Glucose (mg/dL) 115 H (75-99) mg/dL Magnesium (1.6-2.3) mg/dL AST (17-59) U/L Alkaline Phosphatase (38-126) U/L Total Protein (6.3-8.2) g/dL Albumin (3.5-5.0) g/dL Assessment and Plan (1) Acute respiratory failure Narrative/Plan: Continue supportive care. We'll remove the silk sutures from the tracheostomy tomorrow. Continue tube feeds at goal. Current Visit: Yes Status: Acute Code(s): J96.00 - ACUTE RESPIRATORY FAILURE, UNSP W HYPOXIA OR HYPERCAPNIA SNOMED Code(s): 45058689
[2020-10-08] MEDS: ACETAMINOPHEN TAB 325 MG TAB PO PRN (12:20)
[2020-10-08] MEDS ORDERED: PROCHLORPERAZINE INJ 10 MG/2 ML VIAL IVP PRN (12:42)
--- NOTE | 2020-10-08 13:32 | P.PN ---
Subjective This is a 59-year-old male with a past medical history significant for hypertension, hypothyroidism. 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 Patient admitted on 09/17/2020, apparently had a cardiac arrest at home. provided CPR. When EMS arrived the patient was found to be in V. fib. Patient received defibrillation 3 and epi 2. Downtime is unclear. Patient was found to have ST elevation on his EKG and was taken to the laborer pole crew upon arrival to the hospital with Dr. Antoine Patient underwent PCI to the circumflex with impella placement. Echocardiogram revealed LF systolic function is severely impaired with an EF <20%, severe global hypokinesis. Patient's course also complicated by new onset atrial fibrillation and acute renal failure started on dialysis. Patient was started on Amiodarone drip on 09/21/20, now transitioned to PO amiodarone. 09/26- CT Brain negative for acute intracranial process. 09/27- LE dopplers completed awaiting read. 09/29- patient was scheduled for Trach and PEG tube placement, however, the patient became hypoxic and developed desaturations, procedure was canceled and rescheduled 10/01. Apparently patient did follow some simple commands 09/22 in the morning with at bedside. 10/01/2020- Patient underwent Trach and PEG tube placement. Patient did have his IV heparin has been stopped due to patient having increased bleeding from his tracheostomy, but now Eliquis has been started. 10/08/2020 Patient seen in the ICU. Patient is awake and alert, his nodding his head appropriately to verbal questioning, he is following verbal commands, he is able to move all 4 extremities. Mechanical ventilation AC mode rate of 26, tidal volume of 550, FiO2 of 35% and PEEP of 5. He is currently being maintained on amiodarone 400 mg twice a day, Eliquis 2.5mg daily, atorvastatin 40 mg daily, Plavix 75 mg daily, Patient is off vasopressors and inotropes. Off narcotics and sedatives. Telemetry reviewed, patient continues to be in atrial fibrillation HR are increased 90-115 wide QRS. Chest x-ray shows slight worsening bilateral infiltrates. PHYSICAL EXAM: VITAL SIGNS: BP 156/85, heart rate 101 afebrile GENERAL: In no acute distress NECK: Supple. No JVD. Tracheostomy present LUNGS: Respirations even and unlabored. Lungs diminished bilaterally HEART: Irregular tachycardic rate and rhythm. S1 and S2 heard. ABDOMEN: PEG tube present EXTREMITIES: No clubbing or cyanosis. NEURO: Awake and alert, able to answer questions by facial expressions and nodding head ASSESSMENT: STEMI, s/p PCI to circumflex and impella placement V-fib arrest Hypertension - hypotensive while inpatient Dyslipidemia Ischemic cardiomyopathy EF <20% Cardiogenic Shock Acute Hypoxic Respiratory Failure requiring intubation on a mechanical ventilator Acute Renal Failure- requiring hemodialysis - Nephrology following Paroxysmal atrial fibrillation Anemia s/p PEG and Tracheostomy placement 10/01/20 PLAN: -We will continue current medical therapy with dual antiplatelet therapy aspirin and Plavix, amiodarone 400mg BID (Drip started 09/21, PO started 09/29/20). Will transition to amiodarone 200mg BID today -Unable to crush metoprolol succinate, will switch to metoprolol tartrate 25mg BID -Will obtain limited echo today to assess patient's LV function -Continue statin -Continue Eliquis 2.5mg BID -Pulmonary following, appreciate recs -Nephrology following for dialysis, appreciate recs -Further recommendations based on clinical course Nurse practitioner note has been reviewed by physician. Signing provider agrees with the documented findings, assessment, and plan of care. Objective - Vital Signs Vital signs: Vital Signs Temp 98.2 F 10/08/20 08:00 Pulse 98 10/08/20 09:00 Resp 29 H 10/08/20 09:00 BP 115/81 10/08/20 09:00 Pulse Ox 100 10/08/20 09:00 Intake & Output 10/07/20 10/08/20 10/08/20 18:59 06:59 18:59 Intake Total 858 901 313 Output Total 0 0 Balance 858 901 313 Weight 136.1 kg Intake: IV 156 226 130 0.9 Normal Saline 36 36 9 Pressure Bag Piperacillin-Tazobactam 3 100 .375 gm In Sodium Chloride 0.9% 100 ml @ 25 mls/hr IVPB Q12HR [facility] Rx #:[id number] Sodium Chloride 0.9% 500 120 90 121 ml @ 10 mls/hr IV .Q24H [facility] Rx#:[id number] Tube Feeding 612 585 153 Other 90 90 30 Output: Urine 0 0 Other: Voiding Method Incontinent Incontinent # Voids 0 # Bowel Movements 1 ABP, PAP, CO, CI - Last Documented Arterial Blood Pressure 142/89 - Labs CBC & Chem 7: 10/08/20 05:00 10/08/20 05:00 Labs: Abnormal Lab Results - Last 24 Hours (Table) 10/08/20 10/08/20 10/08/20 Range/Units 04:58 05:00 05:00 RBC 2.28 L (4.30-5.90) m/uL Hgb 7.1 L (13.0-17.5) gm/dL Hct 22.8 L (39.0-53.0) % RDW 16.8 H (11.5-15.5) % ABG pO2 117 H (83-108) mmHg ABG Total CO2 26 H (19-24) mmol/L ABG O2 Saturation 99.0 H (94-97) % Sodium 134 L (137-145) mmol/L Chloride 97 L (98-107) mmol/L BUN 95 H (9-20) mg/dL Creatinine 5.87 H (0.66-1.25) mg/dL Glucose 108 H (74-99) mg/dL POC Glucose (mg/dL) (75-99) mg/dL Magnesium 2.8 H (1.6-2.3) mg/dL AST 99 H (17-59) U/L Alkaline Phosphatase 170 H (38-126) U/L Total Protein 5.0 L (6.3-8.2) g/dL Albumin 2.4 L (3.5-5.0) g/dL 10/08/20 Range/Units 05:00 RBC (4.30-5.90) m/uL Hgb (13.0-17.5) gm/dL Hct (39.0-53.0) % RDW (11.5-15.5) % ABG pO2 (83-108) mmHg ABG Total CO2 (19-24) mmol/L ABG O2 Saturation (94-97) % Sodium (137-145) mmol/L Chloride (98-107) mmol/L BUN (9-20) mg/dL Creatinine (0.66-1.25) mg/dL Glucose (74-99) mg/dL POC Glucose (mg/dL) 115 H (75-99) mg/dL Magnesium (1.6-2.3) mg/dL AST (17-59) U/L Alkaline Phosphatase (38-126) U/L Total Protein (6.3-8.2) g/dL Albumin (3.5-5.0) g/dL
--- NOTE | 2020-10-08 13:57 | P.PN ---
Subjective Progress Note Date: 10/08/20 (delayed charting seen at 0830) Principal diagnosis: v-fib arrest Patient is a 59-year-old male with a history of hypertension, hypothyroidism, and obesity who presented to the ER after cardiac arrest in the field. He had multiple rounds of CPR, Epi, and Defib prior to obtaining ROSC. It appears that his down time in the field was approximately 30 minutes on review of the EMS run sheet. He was intubated and sedated he underwent a left heart cath with stent to the LAD and impella placement. Echocardiogram demonstrated an EF of less than 20% with global hypokenesis. He was determined to be in cardiogenic shock requiring dopamine, dobutamine, and levophed. He has required a Nimbex drip to maintain adequate ventilation until 09/20/20. He demonstrated shock liver on arrival. He has also had progressive anuric renal failure, nephrology was consulted HD was initiated on 09/21/20. He had one abnormal EEG with worsening of EEG on 09/20/20. We have been unable to wean sedation due to agitation and there are concerns for severe anoxic encephalopathy. His CXR was worsening and procalcitonin was elevated and he was started on zosyn with concerns for possible underlying PNA. He had not been awake or following commands with sedation holidays. On 09/22/20 he clear shook head no in response to questions. On 09/24 patient went into A fib with RVR during sedation holiday and amio gtt was started. CT head showed age- related atrophy without acute intracranial process. PG and trach were attempted on 09/29 but the patient desaturated. He has been on empiric zosyn for possible PNA. He was taken off propofolo due to hhypertriglyceridemia. Trach and peg were sucessfully placed on 10/01/20. He did have some postoperative bleeding around the trach site secondary to his IV heparin which was changed to subcutaneous heparin. He has had intermittent A. fib. The bleeding from his trach decreased and he was started on Eliquis. He has continued improve daily. Patient seen and examined at bedside. He is currently sitting in the chair. Denies pain, no shortness of breath, no nausea. General: non toxic, no distress, appears at stated age, obese Derm: warm, dry Head: atraumatic, normocephalic, symmetric Eyes: no lid lesion, anicteric sclera Mouth: no lip lesion, mucus membranes dry with lip cracking Cardiovascular: S1S2 reg, no murmur, positive posterior tibial pulse bilateral, Lungs: Rhonchi bilateral, no accessory muscle use him on vent, trach in place Abdominal: soft, nontender to palpation, no guarding, no appreciable organomegaly, Ext: no gross muscle atrophy, diffuse anasarca (improving), no contractures Neuro: wiggling toes possibly to commands. no squeezing hands, shakes head yes to pain Psych: Awake, appears comfortable, following commands, and does not appear anxious. V. fib arrest due to ST segment elevated myocardial infarction status post PCI to the circumflex and impella placement Acute systolic congestive heart failure Ischemic cardiomyopathy with ejection fraction less than 20% P. A fib - dopamine off 09/23/20, dobutamine off, levophed off by 09/22/20 - maintain BP - cardio recs - ASA, Plavix - Amio, d/w cardio will decrease - On metoprolol. Continue to monitor blood pressure closely. No MARY inhibitor with hopes for possible renal recovery until cleared by nephrology. - statin - await repeat EF Generalized Dermatitis -Acute skin clean and dry Hypoxic encephalopathy - neuro recs appreciated: unlikely for major quick recovery, plan for LTACH Acute kidney injury secondary to hypoperfusion and likely ATN Hyperphosphatemia Hyperkalemia - nephrology recs - HD Thursday and then daily through Thursday, then likely could go to 4 times weekly once fluid status is improved. - Avoid nephrotoxic agents - maintain map >65 Acute hypoxic respiratory failure, Pneumonia possible gram negative completed treatment - off zosyn - pulm recs - pulm hygeine Anemia Thrombocytosis, reactive, resolved - component of acute blood loss anemia after trach - follow CBC - no indication for transfusion at this point in time. - start iron supplementation Morbid obesity with BMI 37.7 Shock liver, resolved Cardiogenic shock, resolved Hypothyroidism Thrombocytopenia, resolved Goal is for transfer to LTACH in the near future. Will need to be off of daily dialysis. DVT prophylaxis: Maryquis Discussed with: Nursing A total of 35 minutes was spent on the care of this complex patient more than 50% of the time was spent in counseling and care coordination. Objective - Vital Signs Vital signs: Vital Signs Temp 98.2 F 10/08/20 08:00 Pulse 87 10/08/20 10:00 Resp 14 10/08/20 10:00 BP 115/81 10/08/20 09:00 Pulse Ox 100 10/08/20 10:00 Intake & Output 10/07/20 10/08/20 10/08/20 18:59 06:59 18:59 Intake Total 858 901 286 Output Total 0 0 Balance 858 901 286 Weight 136.1 kg 136.1 kg Intake: IV 156 226 52 0.9 Normal Saline 36 36 12 Pressure Bag Piperacillin-Tazobactam 3 100 .375 gm In Sodium Chloride 0.9% 100 ml @ 25 mls/hr IVPB Q12HR [facility] Rx #:[id number] Sodium Chloride 0.9% 500 120 90 40 ml @ 10 mls/hr IV .Q24H [facility] Rx#:[id number] Tube Feeding 612 585 204 Other 90 90 30 Output: Urine 0 0 Other: Voiding Method Incontinent Incontinent Incontinent # Voids 0 # Bowel Movements 1 ABP, PAP, CO, CI - Last Documented Arterial Blood Pressure 125/76 - Labs CBC & Chem 7: 10/08/20 05:00 10/08/20 05:00 Labs: Abnormal Lab Results - Last 24 Hours (Table) 10/08/20 10/08/20 10/08/20 Range/Units 04:58 05:00 05:00 RBC 2.28 L (4.30-5.90) m/uL Hgb 7.1 L (13.0-17.5) gm/dL Hct 22.8 L (39.0-53.0) % RDW 16.8 H (11.5-15.5) % ABG pO2 117 H (83-108) mmHg ABG Total CO2 26 H (19-24) mmol/L ABG O2 Saturation 99.0 H (94-97) % Sodium 134 L (137-145) mmol/L Chloride 97 L (98-107) mmol/L BUN 95 H (9-20) mg/dL Creatinine 5.87 H (0.66-1.25) mg/dL Glucose 108 H (74-99) mg/dL POC Glucose (mg/dL) (75-99) mg/dL Magnesium 2.8 H (1.6-2.3) mg/dL AST 99 H (17-59) U/L Alkaline Phosphatase 170 H (38-126) U/L Total Protein 5.0 L (6.3-8.2) g/dL Albumin 2.4 L (3.5-5.0) g/dL 10/08/20 Range/Units 05:00 RBC (4.30-5.90) m/uL Hgb (13.0-17.5) gm/dL Hct (39.0-53.0) % RDW (11.5-15.5) % ABG pO2 (83-108) mmHg ABG Total CO2 (19-24) mmol/L ABG O2 Saturation (94-97) % Sodium (137-145) mmol/L Chloride (98-107) mmol/L BUN (9-20) mg/dL Creatinine (0.66-1.25) mg/dL Glucose (74-99) mg/dL POC Glucose (mg/dL) 115 H (75-99) mg/dL Magnesium (1.6-2.3) mg/dL AST (17-59) U/L Alkaline Phosphatase (38-126) U/L Total Protein (6.3-8.2) g/dL Albumin (3.5-5.0) g/dL
--- NOTE | 2020-10-08 17:25 | ECHOF ---
Referral Reason:LV function MEASUREMENTS -------- HEIGHT: 182.9 cm WEIGHT: 136.1 kg BP: 115/81 FINDINGS -------- Pt cardiac arrest 09/17/20: Limited Echo for lv function. There is severe global hypokinesis of LV . Overall left ventricular systolic function is severely i mpaired with, an EF < 20%. CONCLUSIONS -------- 1. There is Inferior wall akinesis 2. Overall left ventricular systolic function is severely impaired with, an EF < 20%. B[employer]IAL VAULT MAKER: Gregoria Angeles RDCS
[2020-10-08] MEDS ORDERED: METOPROLOL TARTRATE 25 MG TAB PO SCH (21:00)
[2020-10-08] MEDS: polyethylene glycoL 3350 17 GM POWD.PACK PO SCH (22:40)
[2020-10-09 05:45] LABS: ABG Base Excess -0.3 mmol/L; ABG HCO3 24 mmol/L (21-25); ABG Oxygen Saturation 99.6 % (94-97); ABG PCO2 34 mmHg (35-45); ABG PH 7.46 (7.35-7.45); ABG PO2 137 mmHg (83-108); ABG TCO2 25 mmol/L (19-24); Allen Test Performed? Yes
[2020-10-09 06:02] LABS: HCT 22.5 % (39.0-53.0); HGB 7.4 gm/dL (13.0-17.5); Hypochromasia Slight; MCHC 32.8 g/dL (31.0-37.0); MCV 100.5 fL (80.0-100.0); Macrocytosis Slight; Mean Platelet Volume 8.4; Platelet Count 316 k/uL (150-450); RBC 2.24 m/uL (4.30-5.90); RDW 15.7 % (11.5-15.5); WBC 7.4 k/uL (3.8-10.6)
[2020-10-09 06:35] LABS: Calcium 9.1 mg/dL (8.4-10.2)
--- NOTE | 2020-10-09 07:17 | P.PN ---
Subjective Progress Note Date: 10/09/20 Principal diagnosis: Cardiac arrest. Pulmonary consult dated 09/17/2020. 59-year-old male who apparently had an ohq-pf-olheuxtf cardiac arrest. EMS was called. His provided is danger chest compressions. When EMS arrived, the patient was in ventricular fibrillation arrest. The patient apparently started having chest compressions, received 3 defibrillations, and 2 rounds of epinephrine. The patient was apparently then intubated in the emergency room by the emergency room physician. The patient was taken to the [facility]. The patient had a stent placed in his circumflex coronary artery. Currently, he's on the ventilator. He is on the volume assist control mode, tidal volume 500, rate 24, FiO2 40%, PEEP of 8. Blood gases on the same settings, except 50%, patricia wed PaO2 of 127 pCO2 of 40, and a pH 7.36. The patient remains on a Lasix drip at 10 mg an hour saline at 150 mL an hour, propofol at 40 mcg/kg/m, norepinephrine at 2 mcg/m. We are going to do a daily interruption of sedation to evaluate the patient's neurologic status. In addition, the patient will need an EEG, and neurology consultation. We'll attempt to wean the norepinephrine. White count 11.4, hemoglobin, hematocrit, and platelet count all normal. PT 15.4, INR 1.5, PTT 52, and d-dimer greater than 34.10. Sodium 141, potassium 3.8, chlorides 107, CO2 23, anion gap 11, BUN 25, and creatinine 1.32. AST 347, ALT is 296, and LDH 2314. Troponins were 0.238 and 3.510. Chest x-rays co nsistent with cardiomegaly, and CHF. Progress note dated 09/18/2020. 59-year-old male with a history of xpn-oh-dfjnptaj cardiac arrest. The patient may have had a prolonged period of resuscitation. The patient was receiving bystander CPR by his . EMS arrived, and continue with chest compressions, defibrillation, and 2 rounds of epinephrine. The patient was intubated in the emergency department by the emergency room physician. The patient was taken to the catheterization laboratory. His stent placement in circumflex coronary artery, and also, an Impella device was inserted. Currently, white count 12.5, hemoglobin 14.3, hematocrit 42.8, and platelet count 168,000. Blood gases show pO2 70, pCO2 35, and a pH is 7.42. His ventilator settings include the volume assist control mode, rate 24, tidal volume 500, FiO2 50%, PEEP of 10. The patient remains on dobutamine at 3 g kilogram per minute, propofol at 70 mcg/kg/m, saline at 125 mL an hour, and heparin via weightbase protocol. Tube feedings has not yet been started. Hopefully, the Impella can be removed today. Sodium 143, potassium 3.1, chlorides 111, CO2 22, anion gap 10, BUN 27, creatinine 1.78. Other than cardiomegaly, the chest x-ray looks pretty good. Progress note dated 09/19/2020. 59-year-old male with a history of gkh-wy-jguxxtka cardiac arrest. The patient appears to have a significantly prolonged period of resuscitation, and may not have received proper oxygenation before arriving in the emergency room. The patient initially had bystander CPR by his . EMS arrived, and provided chest compressions. The patient was defibrillated 3 and received 2 rounds of epinephrine. The patient was not intubated until they arrived in the emergency department. The patient was taken to the catheterization laboratory. The patient is stent placed in his circumflex coronary artery. In addition, an Imp lizbeth device was inserted, and that was removed yesterday. Currently, the patient's on the volume assist control mode rate of 24, to be increased up to 28, tidal volume 500, FiO2 50%, PEEP of 15. The FiO2 be dropped down to 40%. Arterial blood gases show pO2 of 109, pCO2 of 52, and a pH is 7.23. Currently, the patient's on saline 75 mL an hour, dopamine at 2.5 mcg/kg/m, dobutamine at 3.5 mcg/kg/m, norepinephrine at 40 mcg/m, propofol at 60 mcg/kg/m, fentanyl at 2 mcg/kg/h, heparin weight based protocol, and Nimbex at 0.5 mcg/kg/m, with wwcyq-ra-dlet monitoring. Nephrology will be consulted for worsening renal function. In addition, we'll start the patient on tube feeds. White count is 13.7, hemoglobin 13.5, hematocrit 38.9, platelet count 159,000. Sodium 141, potassium 4.3, chlorides 109, CO2 21, anion gap 11, BUN and creatinine are 38 and 3.38. Chest x-ray shows bibasilar infiltrates and/or atelectasis, right greater than left. Progress note dated 09/20/2020. 59-year-old male with a history of jzi-vy-mypdbbsr cardiac arrest. The patient name sustained significant anoxic brain injury. He remains on mechanical ventilator. He is on the volume assist control mode, rate 28 tidal volume 500, FiO2 40%, PEEP of 15. Blood gases showed pO2 of 88, pCO2 43, and a pH is 7.24. These blood gases are consistent with a mild metabolic acidosis. The patient remains on saline at 70 mL an hour, dopamine at 2.5 mcg/kg/m, dobutamine at 3.5 mcg/kg/m, norepinephrine 33 mcg/m, Nimbex has been weaned off, propofol 50 mcg/kg/m, fentanyl 1 mcg/kg/h, and tube feedings are currently on hold because of high residuals. The patient will have a PICC line placed. The patient's currently on Zosyn. Microbiology is negative. Echocardiogram shows an ejection fraction of less than 20%. He'll be started on Reglan. After he received Reglan, tube feeds will be resumed. White count is 9.1, hemoglobin 12, hematocrit 34.5, and platelet count 128,000. Sodium 139, potassium 4.2, chlorides 108, CO2 18, anion gap 13, BUN 49, with a creatinine 6.51. Chest x- ray shows left perihilar and right lower lobe infiltrates, likely consistent with pneumonia. Progress note dated 09/21/2020. 59-year-old male, with history of djz-td-btwnaudv cardiac arrest. The patient had bystander CPR provided by his . The patient likely sustained anoxic brain injury. The patient remains on the mechanical ventilator. Ventilator settings include the volume assist control mode, rate 28, tidal volume 500, FiO2 40%, PEEP of 10. Blood gases show pO2 of 83, pCO2 41, and a pH is 7.26. The patient's on D5W with 1 ampule of sodium bicarbonate, at 75 mL an hour. In addition, the patient is on propofol 60 mcg/kg/m, dopamine at 2.5 mcg/kg/m, dobutamine at 3.5 mcg/kg/m, saline at 10 mL an hour, and norepinephrine at 41 mcg/m. The patient's also getting vital high protein at 10 mL an hour. The patient is to receive hemodialysis today. The patient's on Zosyn empirically. White count 7.7, hemoglobin 11.5, hematocrit 33.8, platelet count 127,000. Sodium 137, potassium 4, chlorides 104, CO2 17, anion gap 16, BUN 56, creatinine 8.99. Chest x-rays consistent with bilateral infiltrates and atelectasis, which is worse compared to the prior x-ray. Progress note dated 09/22/2020. 59-year-old male with a history of udb-yu-edlisxps cardiac arrest. Apparently, his provided CPR until EMS arrived. We feel the patient may have sustained significant anoxic brain injury, because the patient apparently was not intubated until he arrived in the emergency department. The patient did receive 3 defibrillations at the scene, and also to rounds of epinephrine. Apparently chest compressions were being provided by the Faustino device. Currently, the patient remains on mechanical ventilator. I think daily discussions with the , giving her updates. The patient remains on the volume assist control mode, rate 28, tidal volume 500, FiO2 60%, PEEP of 10. Blood gases show a PaO2 of 84, PaCO2 of 38, and a pH is 7.38. The patient's currently on D5W with 1 amp of sodium bicarbonate at 75 mL an hour, will follow at 30 g, dopamine at 2.5 mcg/kg/m, norepinephrine which is been weaned off, saline at 10 mL an hour, dobutamine at 3.5 mcg/kg/m, and amiodarone at 1 mg/m in addition, the patient's receiving vital high protein at goal, which is 27 mL an hour. The patient had a daily interruption of sedation today, and his mental status was not improved whatsoever. The patient was re-sedated. The was updated. White count 8.3, hemoglobin 11.5, hematocrit 30.4, platelet count 126,000. Sodium 133, potassium 3.6, chlorides 98, CO2 21, anion gap 14, BUN 49, and creatinine 8.20. Ionized calcium was low at 3.5. The patient did receive some calcium gluconate. Chest x-ray shows consolidation in the left lower lobe. Progress note dated 09/23/2020. 59-year-old male with history of mqd-rq-rxcwanlj cardiac arrest. His provided CPR at the scene. EMS arrived. The patient apparently was found to have a ventricular fibrillation arrest. The patient was defibrillated 3 times, and got to rounds of epinephrine. The patient was intubated in the emergency department. He remains on mechanical ventilator. Yesterday, the decided to make the patient comfort measures. Surprisingly, he became more alert. Hence, the comfort measures orders were rescinded. Off of sedation, the patient appears to be having some recovery of neurologic function. Currently, he's on the volume assist control mode, rate 28, tidal volume 500, FiO2 60%, and a PEEP of 10. Blood gases today show a PaO2 of 62, PaCO2 36, and pH is 7.36. Currently, the patient is on propofol at 50 mcg/kg/m, dobutamine at 3.5 mcg/kg/m, saline at 75 mL an hour, amiodarone at 0.5 mg/m, dopamine has been discontinued, and the patient's on vital high protein at 27 mL an hour, which is goal. We will DC the Zosyn. No hemodialysis planned for today. A brain CT showed similar findings. White count 7.4, hemoglobin 11.9, hematocrit 33, and platelet count 144,000. Sodium 134, potassium 4.2, chlorides 98, CO2 18, anion gap 18, BUN 50, creatinine 8.29. Calcium was 6.5. Chest x-ray shows low lung volumes, bibasilar interstitial opacities, small left-sided pleural effusion. Microbiologic studies are all negative. Progress note dated 09/24/2020. 59-year-old male with an lsd-zf-pzpusvqk cardiac arrest. His provided CPR at the scene. EMS arrived, and defibrillated the patient 3 times for ventricu lar fibrillation arrest. He also received 2 rounds of epinephrine at that time. The patient was brought into the emergency department, or he was intubated and mechanically ventilated. Currently, the patient is on volume assist control, rate 28, tidal volume 500, FiO2 60%, PEEP of 10. Blood gases show pO2 of 88, pCO2 37, and pH is 7.3.. The patient appeared uncomfortable on the ventilator, and therefore we switched him to the VC plus mode. We made the targeted tidal volume 500, and the inspiratory time 0.9 seconds. The other settings are the same including a rate of 28, FiO2 60%, and PEEP of 10. In addition, the patient can get Cleveprex for blood pressure control if his systolic is greater than 160 or mean greater than 100. He will have hemodialysis today and afterwards, we'll do a daily interruption of sedation. Drips today include saline at KVO, fentanyl at 1 mcg/kg/h, propofol 60 mcg/kg/m, dobutamine at 3.5 mcg/kg/m, amiodarone at 0.5 mg/m and vital high protein at 27 mL an hour, which is goal. Labs include a white count 9.2, hemoglobin 11.3, hematocrit 30.4, and a platelet count that was normal. Sodium 133, potassium 5.5, chlorides 97, CO2 15, anion gap 21, BUN 69, and creatinine 9.60. Chest x-ray is consistent with possible consolidation in the retrocardiac area as well as mild interstitial edema. Cardiac arrest, and acute hypoxic respiratory failure On 10/08/2020 patient seen in follow-up in the intensive care unit. Patient is awake and alert, his nodding his head appropriately to verbal questioning, has not attempted to verbally respond, he is following verbal commands, he is moving all 4 extremities although he is very generally weak. He is currently sitting up in a recliner, tolerating it well, yesterday he tolerated a total of 9 hours of pressure-support of 14 and CPAP of 5, he was placed on assist-control mode of ventilation at night with a rate of 26, tidal volume of 550, FiO2 of 40% and PEEP of 5. This morning he is back on pressure-support of 15 and CPAP of 5 this morning, tolerating it well. O2 sat is 100% on the pressure-support settings with FiO2 of 40%. Today's blood gas was reviewed showing pO2 of 117, pCO2 of 36, and pH of 7.45, and this was done on assist-control mode of ventilation with FiO2 of 40%. His white count today is 8.9, hemoglobin is 7.1, sodium is 134, potassium is 3.9, chloride is 97, CO2 is 25, anion gap is 95, creatinine is 5.87. Chest x-ray today shows slight worsening of the mid bilateral infiltra sha. Patient remains on IV Lasix 60 mg every 8 hours, his urine output is 50-60 ML per hour, overall she is still generally fluid overloaded, his last hemodialysis session was on 10/05/2020 with removal of 4 L of fluid. Otherwise he is breathing fairly comfortably. No significant secretions out of the tracheostomy. She was started on Eliquis yesterday on 2.5 mg twice daily, no significant bleeding from around the trach site. Lung sounds are diminished at the bases with some scattered rhonchi. Patient has had no fever or chills. Currently not on any antibiotics. He has completed a course of Zosyn which has been discontinued, blood and sputum cultures have shown no growth. Hemodynamic ally he remains stable, he is in atrial fibrillation with a controlled rate. He is tolerating tube feedings and patient is receiving Nepro at 51 with a goal of 51 and standard water flushes. Progress note dated 10/09/2020. This is a 59-year-old male who is been in the hospital now for a number of days. The patient was admitted to the hospital with an nys-pw-oesncaej cardiac arrest. His provided CPR at the scene, and when EMS arrived, defibrillated 3 times, for ventricular fibrillation arrest. He was brought to the emergency room and was intubated. For a number of days, he was ventilator dependent. Currently, he's on the ventilator evening, on the volume assist control mode, rate 26, tidal volume 550, FiO2 40%, and PEEP of 5. Yesterday, when I saw him, he was on pressure support of 15, and CPAP of 5. We dropped down to pressure support of 10, and CPAP of 5. She'll be placed on this today. He will be dialyzed today. He is getting saline at 15 mL an hour, and Nepro at 40 mL an hour. Arterial blood gases today show a PaO2 of 137, pCO2 of 34, and pH is 7.4. The FiO2 on the ventilator was reduced to 30%. White count 7.4, hemoglobin 7.4, hematocrit 22.5, and platelet count 316,000. Sodium 133, potassium 4, chlorides 100, CO2 24, anion gap 9, BUN 78, and creatinine 5.28. Chest x-ray shows mild fluid overload. Objective - Vital Signs Vital signs: Vital Signs Temp 998.0 F H 10/09/20 04:00 Pulse 75 10/09/20 07:00 Resp 28 H 10/09/20 07:00 BP 126/76 10/09/20 07:00 Pulse Ox 97 10/09/20 07:00 Intake & Output 10/08/20 10/09/20 10/09/20 18:59 06:59 18:59 Intake Total 770 694 53 Output Total 4000 0 Balance -3230 694 53 Weight 136.1 kg 131.4 kg Intake: IV 156 220 13 0.9 Normal Saline 36 30 3 Pressure Bag Piperacillin-Tazobactam 3 100 .375 gm In Sodium Chloride 0.9% 100 ml @ 25 mls/hr IVPB Q12HR [facility] Rx #:[id number] Sodium Chloride 0.9% 500 120 90 10 ml @ 10 mls/hr IV .Q24H [facility] Rx#:[id number] Tube Feeding 524 244 40 Other 90 230 Output: Urine 0 Hemodialysis 4000 Other: Voiding Method Incontinent # Voids 0 0 # Bowel Movements 1 ABP, PAP, CO, CI - Last Documented Arterial Blood Pressure 123/66 - Exam No acute distress, currently on the ventilator, volume assist control mode, awake and alert. HEENT examination is grossly unremarkable. Neck supple. Full range of motion. No adenopathy thyromegaly or neck vein distention. There is a midline tracheostomy tube. Cardiovascular examination reveals regular rhythm rate. S1-S2 normal. No S3 or S4. No discernible murmur noted. Heart sounds distant. Heart rate 75 bpm. Lungs reveal scattered rhonchi, and some scattered crackles. Breath sounds are equal bilaterally but diminished throughout. There are no wheezes. Abdomen soft but without bowel sounds. No obvious masses or tenderness. A PEG tube is present. Extremities are intact. No cyanosis clubbing or edema. Skin is without rash or lesion. Neurologic examination reveals a patient with significant improvement in his overall neurologic status. - Labs CBC & Chem 7: 10/09/20 05:46 10/08/20 05:00 Labs: Abnormal Lab Results - Last 24 Hours (Table) 10/09/20 10/09/20 Range/Units 05:27 05:46 RBC 2.24 L (4.30-5.90) m/uL Hgb 7.4 L (13.0-17.5) gm/dL Hct 22.5 L (39.0-53.0) % MCV 100.5 H (80.0-100.0) fL RDW 15.7 H (11.5-15.5) % ABG pH 7.46 H (7.35-7.45) ABG pCO2 34 L (35-45) mmHg ABG pO2 137 H (83-108) mmHg ABG Total CO2 25 H (19-24) mmol/L ABG O2 Saturation 99.6 H (94-97) % Assessment and Plan Assessment: #1. Acute hypoxic respiratory failure secondary to acute V. fib cardiac arrest and ST elevated myocardial infarction. Status post cardiac catheterization and stenting of the circumflex. #2. Severe ischemic cardiomyopathy and LV dysfunction and EF of 20%. #3. Acute hypoxic encephalopathy, improving. #4. Acute kidney injury secondary to acute tubular necrosis and cardiac arrest, patient is currently requiring hemodialysis. #5. Acute shock liver, improving. #6. Paroxysmal atrial fibrillation, currently remains in atrial fibrillation w ith a controlled rate, patient is now on Eliquis. #6. Hypothyroidism. #7. History of depression. #8. Fluid overload with extensive generalized edema in upper and lower extremities as well as scrotal swelling. Improving with hemodialysis. #9. Status post tracheostomy and PEG tube placement on 10/01/2020. Plan: Plan dated 09/17/2020. We will attempt to wean the patient off the norepinephrine. We'll also do a daily interruption of sedation. In addition, we'll try to turn down the IV fluids. Chest x-ray clearly shows congestive heart failure. In addition, the patient will have a neurology consult and EEG. Additional recommendations and suggestions are forthcoming. Prognosis is very guarded. We will continue to follow and make recommendations where appropriate. Plan dated 09/18/2020. Currently, the patient's gas exchange is reasonable. Chest x-ray shows card iomegaly. The patient remains on dobutamine at 3 mcg/kg/m. The patient has been sedated with propofol at 70 mcg/kg/m. Hopefully, the Impella device will come out today. Once that cell, it'll be easier to wean the patient. Additional recommendations and suggestions are forthcoming. I likely will do a daily interruption of sedation anyway. Neurology has been consulted. EEG was consistent with mild to moderate encephalopathy. Prognosis is guarded. We will continue to follow and make recommendations where appropriate. Plan dated 09/19/2020. Currently, the patient's doing worse. Patient's on numerous strips including dopamine, dobutamine, norepinephrine, propofol, fentanyl, heparin, and Nimbex. The patient has developed acute kidney injury, possibly related to ATN. In addition, the patient's ejection fraction of less than 20%. His prognosis is very poor. We'll have discussions with his at this point. Neurology has seen the patient. Cardiology is also involved in the care of this patient. We will continue to follow make recommendations where appropriate. Prognosis is very guarded. Plan dated 09/20/2020. Currently, the patient's manifesting signs and symptoms of multiorgan system failure. Currently, organ involvement with the heart, lungs, kidneys, and brain . The patient's on multiple drips, including dopamine, the beginning, norepinephrine, propofol, and fentanyl. The patient will get Reglan 10 mg 4 times a day, we will resume tube needs. Patient's currently on Zosyn 3.375 g every 12. Microbiology is negative. A PICC line will be placed. I will call the Luiza, give her an update. Overall prognosis is very poor. If she wants to continue life support, I would probably aspirin early trach and PEG tube placement. Plan dated 09/21/2020. Today, I had a very pelon discussion with the patient's , and daughter. They removed the room on rounds. I gave them when I felt was a very honest assessment of their family member. I think the patient has an extremely poor prognosis given the events that took place on the day of his cardiac arrest. Very concerned about anoxic brain injury. On daily interruption of sedation, although the patient does move all 4 extremities, nothing purposeful is noted. I did tell the that I thought it was too early to give up on the patient. We'll continue to follow make recommendations were appropriate. In addition, the patient has very poor cardiac function, with an ejection fraction of less than 20%. Apparently, cardiology is also pain patient of the family. I think that's appropriate. The patient remains on D5W with sodium bicarbonate, propofol, dopamine, dobutamine, norepinephrine, and tube feeds. Plan dated 09/22/2020. The patient remains on the chemical ventilator. We been updating the daily. Blood gases are reasonable. The patient remains on a number drips in cluding a sodium bicarbonate drip, propofol, dopamine, amiodarone, and dobutamine. Norepinephrine is been weaned off. The patient is on vital high protein at goal. No additional recommendations are made at this time. We will continue to follow and make suggestions where appropriate. The patient did have a daily interruption of sedation, with no improvement in his overall neurologic status. The was in the room, when we did this. Plan dated 09/23/2020. The patient remains on the mechanical ventilator. The patient's is updated on a daily basis. The patient was going to be comfort care yesterday, but because of some improvement neurologic function, the patient's changed her mind. Currently, he is on propofol, dobutamine, amiodarone, and nutrition. Dopamine has been discontinued. We will DC Zosyn. No hemodialysis today. The patient will be placed on a fentanyl drip if we cannot control the patient's respiratory rate and agitation just with propofol. Additional recommendations and suggestions are forthcoming. We will continue to follow and make recommendations where appropriate. Plan dated 09/24/2020. I told the nurse, that they could use Cleveprex, if the systolic blood pressures greater than 160 with a mean arterial pressures greater than 100. The patient will have hemodialysis today and afterwards, we will do a daily interruption of sedation. Because the patient was dyssynchronous with the mechanical ventilator, we went ahead and switch to the VC plus mode, with a targeted tidal volume of 500, and inspiratory time of 0.9 seconds. The patient remains on fentanyl drip, propofol drip, dobutamine drip, amiodarone drip, and is being nourished. Prognosis remains guarded. Additional recommendations and suggestions are forthcoming. We will continue to see the patient and make recommendations where appropriate. Plan dated 10/09/2020. Currently, the patient's doing much better. The pressure support yesterday was reduced from 15 to 10 cm water. The patient will have hemodialysis today. The plan is to eventually send the patient to a long-term acute care facility. This may happen later this week. After hemodialysis today, the patient is stable, we can try him on some trach. collar. Additional recommendations and suggestions are forthcoming. Prognosis is guarded. We'll continue to follow. Continue tube feedings. Time with Patient: Greater than 30
[2020-10-09] MEDS: IPRATROPIUM-ALBUTEROL 3 ML NEB INHALATION SCH ×4 (07:29→20:03)
--- NOTE | 2020-10-09 08:04 | XR ---
EXAMINATION TYPE: XR chest 1V portable DATE OF EXAM: 10/09/2020 COMPARISON: 10/08/2020 INDICATION: Short of breath TECHNIQUE: Single frontal view of the chest is obtained. FINDINGS: The heart size is mildly prominent. The pulmonary vasculature is normal. Left lower lobe air bronchograms remain present. There is some mild alveolar type infiltrate which ca n be related to volume overload or pulmonary edema. Double-lumen catheter is present on the right wit h the tip in the superior vena cava region. Tracheostomy tube is in the midline IMPRESSION: 1. Mild alveolar type infiltrate. Pulmonary edema remains within the differential. 2. Left lower lobe pneumonia remains within the differential. 3. Mild cardiomegaly
--- NOTE | 2020-10-09 08:57 | P.PN ---
Subjective Patient is seen in follow-up for acute kidney injury. Tolerating dialysis well. Oliguric. On oral amiodarone and metoprolol for A. fib. Vital signs: Stable. General: The patient appeared well nourished and normally developed. HEENT: Tracheostomy noted. LUNGS: Breath sounds decreased. HEART: Regular rate and rhythm. Abdomen: Soft, no distention. EXTREMITITES: 1+ edema. Objective - Vital Signs Vital signs: Vital Signs Temp 998.0 F H 10/09/20 04:00 Pulse 89 10/09/20 07:41 Resp 28 H 10/09/20 07:00 BP 126/76 10/09/20 07:00 Pulse Ox 97 10/09/20 07:00 Intake & Output 10/08/20 10/09/20 10/09/20 18:59 06:59 18:59 Intake Total 770 694 53 Output Total 4000 0 Balance -3230 694 53 Weight 136.1 kg 131.4 kg Intake: IV 156 220 13 0.9 Normal Saline 36 30 3 Pressure Bag Piperacillin-Tazobactam 3 100 .375 gm In Sodium Chloride 0.9% 100 ml @ 25 mls/hr IVPB Q12HR [facility] Rx #:[id number] Sodium Chloride 0.9% 500 120 90 10 ml @ 10 mls/hr IV .Q24H [facility] Rx#:[id number] Tube Feeding 524 244 40 Other 90 230 Output: Urine 0 Hemodialysis 4000 Other: Voiding Method Incontinent # Voids 0 0 # Bowel Movements 1 ABP, PAP, CO, CI - Last Documented Arterial Blood Pressure 123/66 - Labs CBC & Chem 7: 10/09/20 05:46 10/09/20 05:46 Labs: Abnormal Lab Results - Last 24 Hours (Table) 10/09/20 10/09/20 10/09/20 Range/Units 05:27 05:46 05:46 RBC 2.24 L (4.30-5.90) m/uL Hgb 7.4 L (13.0-17.5) gm/dL Hct 22.5 L (39.0-53.0) % MCV 100.5 H (80.0-100.0) fL RDW 15.7 H (11.5-15.5) % ABG pH 7.46 H (7.35-7.45) ABG pCO2 34 L (35-45) mmHg ABG pO2 137 H (83-108) mmHg ABG Total CO2 25 H (19-24) mmol/L ABG O2 Saturation 99.6 H (94-97) % Sodium 133 L (137-145) mmol/L BUN 78 H (9-20) mg/dL Creatinine 5.28 H (0.66-1.25) mg/dL Glucose 107 H (74-99) mg/dL Assessment and Plan Plan: Assessment: 1. Acute kidney injury secondary to ATN secondary to cardiac arrest and cardiogenic shock. Oliguric. Started on hemodialysis September 21. Has a permacath. 2. Status post cardiac arrest. 3. Coronary artery disease status post catheterization with stent placement to the circumflex on 09/17/2020. 4. Cardiogenic shock status post dopamine and dobutamine. Ejection fraction 20-25%. 5. Metabolic acidosis secondary to acute kidney injury. Status post bicarb drip. Improved. Now on oral bicarbonate. 6. Acute hypoxic respiratory failure. Status post tracheostomy. 7. Hypocalcemia secondary to acute kidney injury. Replaced. Better. 8. Hyperphosphatemia secondary to acute kidney injury maintained on PhosLo. 9. A. fib with RVR maintained on oral amiodarone and metoprolol. 10. Hyponatremia secondary to acute kidney injury. Hypervolemic. 11. Hyperkalemia secondary to acute kidney injury and metabolic acidosis. Resolved. 12. Anemia, multifactorial, secondary to acute illness and component of kidney failure. Plan: Maintain tube feeds. Currently seen while undergoing hemodialysis. Hemodialysis again tomorrow and he will then be maintained on a Thursday schedule. Monitor for renal recovery. Add Aranesp. Plan for [facility] upon discharge. Discussed with the primary team.
[2020-10-09] MEDS: SODIUM BICARBONATE TAB 650 MG TAB PO SCH ×2 (10:08→21:12)
[2020-10-09] MEDS: CLOPIDOGREL 75 MG TAB PO SCH (10:08)
[2020-10-09] MEDS: AMIODARONE 200 MG TAB PO SCH ×2 (10:08→21:12)
[2020-10-09] MEDS: PIPERACILLIN-TAZOBACTAM 3.375 GM in SODIUM CHLORIDE 0.9% 100 ML IVPB SCH ×2 (10:08→21:11)
[2020-10-09] MEDS: LEVOTHYROXINE 50 MCG TAB PO SCH (10:09)
[2020-10-09] MEDS: APIXABAN 2.5 MG TABLET PO SCH ×2 (10:09→21:12)
[2020-10-09] MEDS: ATORVASTATIN 40 MG TAB PO SCH (10:09)
[2020-10-09] MEDS: FERROUS SULFATE ORAL ELIXIR 300 MG/5 ML CUP OG-TUBE SCH (10:09)
[2020-10-09] MEDS: PANTOPRAZOLE 40 MG/10 ML VIAL IVP SCH (10:09)
[2020-10-09] MEDS: CALCIUM ACETATE 667 MG TAB PO SCH ×4 (10:09→21:12)
[2020-10-09] MEDS: SODIUM CHLORIDE 0.9% 500 ML IV SCH (10:11)
--- NOTE | 2020-10-09 10:23 | P.PN ---
Subjective This is a 59-year-old male with a past medical history significant for hypertension, hypothyroidism. Patient does not follow with a call center support representative kati victoria. Patient admitted on 09/17/2020, apparently had a cardiac arrest at home. provided CPR. When EMS arrived the patient was found to be in V. fib. Patient received defibrillation 3 and epi 2. Downtime is unclear. Patient was found to have ST elevation on his EKG and was taken to the [facility] upon arrival to the hospital with Dr. Antoine Patient underwent PCI to the circumflex with impella placement. Echocardiogram revealed LF systolic function is severely impaired with an EF <20%, severe global hypokinesis. Patient's course also complicated by new onset atrial fibrillation and acute renal failure started on dialysis. Patient was started on Amiodarone drip on 09/21/20, now transitioned to PO amiodarone. Patient did have his IV heparin stopped previously due to patient having increased bleeding from his tracheostomy, but now Eliquis has been started. 10/09/2020 Patient seen in the ICU. Patient is awake and alert, his nodding his head appropriately to verbal questioning, he is following verbal commands, he is able to move all 4 extremities. Limited Echocardiogram 10/08 revealed EF <20%. Mechanical ventilation AC mode rate of 26, tidal volume of 550, FiO2 of 40% and PEEP of 5. He is currently being maintained on amiodarone 200 mg twice a day, Eliquis 2.5mg daily, aspirin 81mg daily, atorvastatin 40 mg daily, Plavix 75 mg daily, Patient continues to be off vasopressors and inotropes. Off narcotics and sedatives. Telemetry reviewed, patient continues to be in atrial fibrillation HR are increased 80-105 wide QRS. PHYSICAL EXAM: VITAL SIGNS: BP 125/66 , heart rate 96 afebrile GENERAL: In no acute distress NECK: Supple. No JVD. Tracheostomy present LUNGS: Respirations even and unlabored. Lungs diminished bilaterally HEART: Irregular rate and rhythm. S1 and S2 heard. ABDOMEN: PEG tube present EXTREMITIES: No clubbing or cyanosis. Bilateral 1+ edema. NEURO: Awake and alert, able to answer questions by facial expressions and nodding head ASSESSMENT: STEMI, s/p PCI to circumflex and impella placement V-fib cardiac arrest History of Hypertension Dyslipidemia Ischemic cardiomyopathy EF <20% Cardiogenic Shock Acute Hypoxic Respiratory Failure requiring intubation on a mechanical ventilator Acute Renal Failure- requiring hemodialysis - Nephrology following Paroxysmal atrial fibrillation -[id number] score 3. Now on Eliquis Anemia s/p PEG and Tracheostomy placement 10/01/20 PLAN: -We will stop aspirin and continue Eliquis 2.5mg BID -Increase metoprolol tartrate 50mg BID -Continue amiodarone 200mg BID (started 10/08/20), then transition to daily 10/15/20 -Continue lisinopril 5mg daily, Plavix 75mg daily and atorvastatin 40mg daily -Patient is at risk for sudden cardiac due to severe cardiomyopathy. Spoke with case management, patient is able to have [facility] at [facility], we will start the process in arrangement for LifeVest for patient prior to d ischarge. -Pulmonary following, appreciate recs -Nephrology following for dialysis, appreciate recs -Further recommendations based on clinical course Nurse practitioner note has been reviewed by physician. Signing provider agrees with the documented findings, assessment, and plan of care. Objective - Vital Signs Vital signs: Vital Signs Temp 998.0 F H 10/09/20 04:00 Pulse 89 10/09/20 07:41 Resp 28 H 10/09/20 07:00 BP 126/76 10/09/20 07:00 Pulse Ox 97 10/09/20 07:00 Intake & Output 10/08/20 10/09/20 10/09/20 18:59 06:59 18:59 Intake Total 770 694 53 Output Total 4000 0 Balance -3230 694 53 Weight 136.1 kg 131.4 kg Intake: IV 156 220 13 0.9 Normal Saline 36 30 3 Pressure Bag Piperacillin-Tazobactam 3 100 .375 gm In Sodium Chloride 0.9% 100 ml @ 25 mls/hr IVPB Q12HR [facility] Rx #:[id number] Sodium Chloride 0.9% 500 120 90 10 ml @ 10 mls/hr IV .Q24H [facility] Rx#:[id number] Tube Feeding 524 244 40 Other 90 230 Output: Urine 0 Hemodialysis 4000 Other: Voiding Method Incontinent # Voids 0 0 # Bowel Movements 1 ABP, PAP, CO, CI - Last Documented Arterial Blood Pressure 123/66 - Labs CBC & Chem 7: 10/09/20 05:46 10/09/20 05:46 Labs: Abnormal Lab Results - Last 24 Hours (Table) 10/09/20 10/09/20 10/09/20 Range/Units 05:27 05:46 05:46 RBC 2.24 L (4.30-5.90) m/uL Hgb 7.4 L (13.0-17.5) gm/dL Hct 22.5 L (39.0-53.0) % MCV 100.5 H (80.0-100.0) fL RDW 15.7 H (11.5-15.5) % ABG pH 7.46 H (7.35-7.45) ABG pCO2 34 L (35-45) mmHg ABG pO2 137 H (83-108) mmHg ABG Total CO2 25 H (19-24) mmol/L ABG O2 Saturation 99.6 H (94-97) % Sodium 133 L (137-145) mmol/L BUN 78 H (9-20) mg/dL Creatinine 5.28 H (0.66-1.25) mg/dL Glucose 107 H (74-99) mg/dL
--- NOTE | 2020-10-09 11:41 | P.PN ---
Subjective Progress Note Date: 10/09/20 Principal diagnosis: Respiratory failure Patient awake on the ventilator. Receiving dialysis. He has had a small amount of blood around the tracheostomy site and also when they suction him. Tolerating tube feeds. He is having bowel movements. Objective - Vital Signs Vital signs: Vital Signs Temp 98.8 F 10/09/20 08:00 Pulse 90 10/09/20 11:30 Resp 12 10/09/20 09:30 BP 106/84 10/09/20 09:00 Pulse Ox 99 10/09/20 09:30 Intake & Output 10/08/20 10/09/20 10/09/20 18:59 06:59 18:59 Intake Total 770 694 53 Output Total 4000 0 Balance -3230 694 53 Weight 136.1 kg 131.4 kg Intake: IV 156 220 13 0.9 Normal Saline 36 30 3 Pressure Bag Piperacillin-Tazobactam 3 100 .375 gm In Sodium Chloride 0.9% 100 ml @ 25 mls/hr IVPB Q12HR [facility] Rx #:[id number] Sodium Chloride 0.9% 500 120 90 10 ml @ 10 mls/hr IV .Q24H [facility] Rx#:[id number] Tube Feeding 524 244 40 Other 90 230 Output: Urine 0 Hemodialysis 4000 Other: Voiding Method Incontinent # Voids 0 0 # Bowel Movements 1 ABP, PAP, CO, CI - Last Documented Arterial Blood Pressure 125/66 - Exam Trach site dressing removed. Both silk sutures also removed. No active bleeding at this time. A small 1 cm clot adjacent to the right side of the tracheostomy was removed and no bleeding was seen. No erythema. PEG tube in place without evidence of tenderness or infection - Labs CBC & Chem 7: 10/09/20 05:46 10/09/20 05:46 Labs: Abnormal Lab Results - Last 24 Hours (Table) 10/09/20 10/09/20 10/09/20 Range/Units 05:27 05:46 05:46 RBC 2.24 L (4.30-5.90) m/uL Hgb 7.4 L (13.0-17.5) gm/dL Hct 22.5 L (39.0-53.0) % MCV 100.5 H (80.0-100.0) fL RDW 15.7 H (11.5-15.5) % ABG pH 7.46 H (7.35-7.45) ABG pCO2 34 L (35-45) mmHg ABG pO2 137 H (83-108) mmHg ABG Total CO2 25 H (19-24) mmol/L ABG O2 Saturation 99.6 H (94-97) % Sodium 133 L (137-145) mmol/L BUN 78 H (9-20) mg/dL Creatinine 5.28 H (0.66-1.25) mg/dL Glucose 107 H (74-99) mg/dL Assessment and Plan (1) Acute respiratory failure Narrative/Plan: Patient seems to be doing better. Continue to monitor tracheostomy site. Current Visit: Yes Status: Acute Code(s): J96.00 - ACUTE RESPIRATORY FAILURE, UNSP W HYPOXIA OR HYPERCAPNIA SNOMED Code(s): 13497082
[2020-10-09] MEDS ORDERED: DARBEPOETIN ALFA 40 MCG/0.4 ML SYRINGE SQ SCH (12:00)
[2020-10-09] MEDS: lisinopriL 5 MG TAB PO SCH (12:16)
[2020-10-09] MEDS: METOPROLOL TARTRATE 50 MG TAB PO SCH ×2 (12:16→21:12)
--- NOTE | 2020-10-09 12:59 | P.PN ---
Subjective Progress Note Date: 10/09/20 (delayed charing seen at 0930) Principal diagnosis: v-fib arrest Patient is a 59-year-old male with a history of hypertension, hypothyroidism, and obesity who presented to the ER after cardiac arrest in the field. He had multiple rounds of CPR, Epi, and Defib prior to obtaining ROSC. It appears that his down time in the field was approximately 30 minutes on review of the EMS run sheet. He was intubated and sedated he underwent a left heart cath with stent to the LAD and impella placement. Echocardiogram demonstrated an EF of less than 20% with global hypokenesis. He was determined to be in cardiogenic shock requiring dopamine, dobutamine, and levophed. He has required a Nimbex drip to maintain adequate ventilation until 09/20/20. He demonstrated shock liver on arrival. He has also had progressive anuric renal failure, nephrology was consulted HD was initiated on 09/21/20. He had one abnormal EEG with worsening of EEG on 09/20/20. We have been unable to wean sedation due to agitation and there are concerns for severe anoxic encephalopathy. His CXR was worsening and procalcitonin was elevated and he was started on zosyn with concerns for possible underlying PNA. He had not been awake or following commands with sedation holidays. On 09/22/20 he clear shook head no in response to questions. On 09/24 patient went into A fib with RVR during sedation holiday and amio gtt was started. CT head showed age- related atrophy without acute intracranial process. PG and trach were attempted on 09/29 but the patient desaturated. He has been on empiric zosyn for possible PNA. He was taken off propofol due to hypertriglyceridemia. Trach and peg were successfully placed on 10/01/20. He did have some postoperative bleeding around the trach site secondary to his IV h eparin which was changed to subcutaneous heparin. He has had intermittent A. fib. The bleeding from his trach decreased and he was started on Eliquis. He has continued improve daily. Patient seen and examined at bedside. Having hiccups but manageable. No chest pain, no shortness of breath, no nausea, able to move more. General: non toxic, no distress, appears at stated age, obese Derm: warm, dry Head: atraumatic, normocephalic, symmetric Eyes: no lid lesion, anicteric sclera Mouth: no lip lesion, mucus membranes dry with lip cracking Cardiovascular: S1S2 reg, no murmur, positive posterior tibial pulse bilateral, Lungs: Rhonchi bilateral, no accessory muscle use him on vent, trach in place with sanagenous drainage. Abdominal: soft, nontender to palpation, no guarding, no appreciable organomegaly, Ext: no gross muscle atrophy, diffuse anasarca (improving), no contractures Neuro: wiggling toes possibly to commands. no squeezing hands, shakes head yes to pain Psych: Awake, appears comfortable, following commands, and does not appear anxious. V. fib arrest due to ST segment elevated myocardial infarction status post PCI to the circumflex and impella placement Acute systolic congestive heart failure Ischemic cardiomyopathy with ejection fraction less than 20% P. A fib - dopamine off 09/23/20, dobutamine off, levophed off by 09/22/20 - cardio recs - ASA, Plavix - amio decreased on 10/10 - Metoprolol and lisinopril (low dose only per nephrology) - statin - Plan is for life vest on discharge. Generalized Dermatitis -Acute skin clean and dry Hypoxic encephalopathy - neuro recs appreciated: unlikely for major quick recovery, plan for LTACH Acute kidney injury secondary to hypoperfusion and likely ATN Hyperphosphatemia Hyperkalemia - nephrology recs - HD Thursday and then daily through Thursday, then likely could go to 4 times weekly once fluid status is improved. - Avoid nephrotoxic agents - maintain map >65 Acute hypoxic respiratory failure, Pneumonia possible gram negative completed treatment - off zosyn - pulm recs - pulm hygeine Anemia Thrombocytosis, reactive, resolved - component of acute blood loss anemia after trach - follow CBC - no indication for transfusion at this point in time. - start iron supplementation Morbid obesity with BMI 37.7 Shock liver, resolved Cardiogenic shock, resolved Hypothyroidism Thrombocytopenia, resolved Plan is for [facility] on 10/11 DVT prophylaxis: Maryqumunira Discussed with: Nursing A total of 35 minutes was spent on the care of this complex patient more than 50% of the time was spent in counseling and care coordination. Objective - Vital Signs Vital signs: Vital Signs Temp 98.8 F 10/09/20 11:41 Pulse 102 H 10/09/20 11:41 Resp 18 10/09/20 11:41 BP 140/73 10/09/20 11:41 Pulse Ox 99 10/09/20 09:30 Intake & Output 10/08/20 10/09/20 10/09/20 18:59 06:59 18:59 Intake Total 770 694 478 Output Total 4000 0 4000 Balance -6894 168 -1997 Weight 136.1 kg 131.4 kg Intake: IV 156 220 178 0.9 Normal Saline 36 30 18 Pressure Bag Piperacillin-Tazobactam 3 100 100 .375 gm In Sodium Chloride 0.9% 100 ml @ 25 mls/hr IVPB Q12HR [facility] Rx #:[id number] Sodium Chloride 0.9% 500 120 90 60 ml @ 10 mls/hr IV .Q24H [facility] Rx#:[id number] Tube Feeding 524 244 240 Other 90 230 60 Output: Urine 0 0 Hemodialysis 4000 4000 Other: Voiding Method Incontinent # Voids 0 0 # Bowel Movements 1 ABP, PAP, CO, CI - Last Documented Arterial Blood Pressure 125/66 - Labs CBC & Chem 7: 10/09/20 05:46 10/09/20 05:46 Labs: Abnormal Lab Results - Last 24 Hours (Table) 10/09/20 10/09/20 10/09/20 Range/Units 05:27 05:46 05:46 RBC 2.24 L (4.30-5.90) m/uL Hgb 7.4 L (13.0-17.5) gm/dL Hct 22.5 L (39.0-53.0) % MCV 100.5 H (80.0-100.0) fL RDW 15.7 H (11.5-15.5) % ABG pH 7.46 H (7.35-7.45) ABG pCO2 34 L (35-45) mmHg ABG pO2 137 H (83-108) mmHg ABG Total CO2 25 H (19-24) mmol/L ABG O2 Saturation 99.6 H (94-97) % Sodium 133 L (137-145) mmol/L BUN 78 H (9-20) mg/dL Creatinine 5.28 H (0.66-1.25) mg/dL Glucose 107 H (74-99) mg/dL
[2020-10-09] MEDS: polyethylene glycoL 3350 17 GM POWD.PACK PO SCH (21:14)
[2020-10-10 04:27] LABS: HCT 23.4 % (39.0-53.0); HGB 7.4 gm/dL (13.0-17.5); Hypochromasia Slight; MCH 32.5 pg (25.0-35.0); MCHC 31.7 g/dL (31.0-37.0); MCV 102.6 fL (80.0-100.0); Macrocytosis Moderate; Mean Platelet Volume 8.4; Platelet Count 322 k/uL (150-450); RBC 2.28 m/uL (4.30-5.90); RDW 15.8 % (11.5-15.5); WBC 6.8 k/uL (3.8-10.6)
[2020-10-10 04:37] LABS: Calcium 8.7 mg/dL (8.4-10.2); Potassium 3.8 mmol/L (3.5-5.1)
[2020-10-10] MEDS ORDERED: Potassium Replacement Protocol 1 EACH MISC MISCELLANE PRN (04:50)
[2020-10-10 05:45] LABS: ABG Base Excess 1.1 mmol/L; ABG HCO3 25 mmol/L (21-25); ABG Oxygen Saturation 98.6 % (94-97); ABG PCO2 36 mmHg (35-45); ABG PH 7.45 (7.35-7.45); ABG PO2 104 mmHg (83-108); ABG TCO2 26 mmol/L (19-24); Allen Test Performed? Yes
[2020-10-10] MEDS ORDERED: POTASSIUM BICARBONATE/CIT AC 20 MEQ TABLET.EFF NG-TUBE SCH (06:00)
[2020-10-10] MEDS: LEVOTHYROXINE 50 MCG TAB PO SCH (06:21)
--- NOTE | 2020-10-10 06:56 | XR ---
EXAMINATION TYPE: XR chest 1V portable DATE OF EXAM: 10/10/2020 COMPARISON: 10/09/2020 HISTORY: SOB, Follow Up FINDINGS: Indwelling tubes and catheters are unchanged. Pulmonary venous congestion without overt failure. Stable appearance of the cardio-mediastinal structures at this time. IMPRESSION: 1. Stable portable chest. Clinical correlation and follow up until resolution is recommended.
[2020-10-10] MEDS: IPRATROPIUM-ALBUTEROL 3 ML NEB INHALATION SCH ×4 (07:10→19:12)
--- NOTE | 2020-10-10 09:05 | P.PN ---
Subjective Progress Note Date: 10/10/20 Principal diagnosis: Cardiac arrest. Pulmonary consult dated 09/17/2020. 59-year-old male who apparently had an mmw-hd-cmeuabzk cardiac arrest. EMS was called. His provided is danger chest compressions. When EMS arrived, the patient was in ventricular fibrillation arrest. The patient apparently started having chest compressions, received 3 defibrillations, and 2 rounds of epinephrine. The patient was apparently then intubated in the emergency room by the emergency room physician. The patient was taken to the [facility]. The patient had a stent placed in his circumflex coronary artery. Currently, he's on the ventilator. He is on the volume assist control mode, tidal volume 500, rate 24, FiO2 40%, PEEP of 8. Blood gases on the same settings, except 50%, patricia wed PaO2 of 127 pCO2 of 40, and a pH 7.36. The patient remains on a Lasix drip at 10 mg an hour saline at 150 mL an hour, propofol at 40 mcg/kg/m, norepinephrine at 2 mcg/m. We are going to do a daily interruption of sedation to evaluate the patient's neurologic status. In addition, the patient will need an EEG, and neurology consultation. We'll attempt to wean the norepinephrine. White count 11.4, hemoglobin, hematocrit, and platelet count all normal. PT 15.4, INR 1.5, PTT 52, and d-dimer greater than 34.10. Sodium 141, potassium 3.8, chlorides 107, CO2 23, anion gap 11, BUN 25, and creatinine 1.32. AST 347, ALT is 296, and LDH 2314. Troponins were 0.238 and 3.510. Chest x-rays co nsistent with cardiomegaly, and CHF. Progress note dated 09/18/2020. 59-year-old male with a history of tei-sk-hrnguoee cardiac arrest. The patient may have had a prolonged period of resuscitation. The patient was receiving bystander CPR by his . EMS arrived, and continue with chest compressions, defibrillation, and 2 rounds of epinephrine. The patient was intubated in the emergency department by the emergency room physician. The patient was taken to the catheterization laboratory. His stent placement in circumflex coronary artery, and also, an Impella device was inserted. Currently, white count 12.5, hemoglobin 14.3, hematocrit 42.8, and platelet count 168,000. Blood gases show pO2 70, pCO2 35, and a pH is 7.42. His ventilator settings include the volume assist control mode, rate 24, tidal volume 500, FiO2 50%, PEEP of 10. The patient remains on dobutamine at 3 g kilogram per minute, propofol at 70 mcg/kg/m, saline at 125 mL an hour, and heparin via weightbase protocol. Tube feedings has not yet been started. Hopefully, the Impella can be removed today. Sodium 143, potassium 3.1, chlorides 111, CO2 22, anion gap 10, BUN 27, creatinine 1.78. Other than cardiomegaly, the chest x-ray looks pretty good. Progress note dated 09/19/2020. 59-year-old male with a history of him-mn-hbdyluem cardiac arrest. The patient appears to have a significantly prolonged period of resuscitation, and may not have received proper oxygenation before arriving in the emergency room. The patient initially had bystander CPR by his . EMS arrived, and provided chest compressions. The patient was defibrillated 3 and received 2 rounds of epinephrine. The patient was not intubated until they arrived in the emergency department. The patient was taken to the catheterization laboratory. The patient is stent placed in his circumflex coronary artery. In addition, an Imp lizbeth device was inserted, and that was removed yesterday. Currently, the patient's on the volume assist control mode rate of 24, to be increased up to 28, tidal volume 500, FiO2 50%, PEEP of 15. The FiO2 be dropped down to 40%. Arterial blood gases show pO2 of 109, pCO2 of 52, and a pH is 7.23. Currently, the patient's on saline 75 mL an hour, dopamine at 2.5 mcg/kg/m, dobutamine at 3.5 mcg/kg/m, norepinephrine at 40 mcg/m, propofol at 60 mcg/kg/m, fentanyl at 2 mcg/kg/h, heparin weight based protocol, and Nimbex at 0.5 mcg/kg/m, with qbjih-xh-orof monitoring. Nephrology will be consulted for worsening renal function. In addition, we'll start the patient on tube feeds. White count is 13.7, hemoglobin 13.5, hematocrit 38.9, platelet count 159,000. Sodium 141, potassium 4.3, chlorides 109, CO2 21, anion gap 11, BUN and creatinine are 38 and 3.38. Chest x-ray shows bibasilar infiltrates and/or atelectasis, right greater than left. Progress note dated 09/20/2020. 59-year-old male with a history of jnh-ez-mnvpwdcx cardiac arrest. The patient name sustained significant anoxic brain injury. He remains on mechanical ventilator. He is on the volume assist control mode, rate 28 tidal volume 500, FiO2 40%, PEEP of 15. Blood gases showed pO2 of 88, pCO2 43, and a pH is 7.24. These blood gases are consistent with a mild metabolic acidosis. The patient remains on saline at 70 mL an hour, dopamine at 2.5 mcg/kg/m, dobutamine at 3.5 mcg/kg/m, norepinephrine 33 mcg/m, Nimbex has been weaned off, propofol 50 mcg/kg/m, fentanyl 1 mcg/kg/h, and tube feedings are currently on hold because of high residuals. The patient will have a PICC line placed. The patient's currently on Zosyn. Microbiology is negative. Echocardiogram shows an ejection fraction of less than 20%. He'll be started on Reglan. After he received Reglan, tube feeds will be resumed. White count is 9.1, hemoglobin 12, hematocrit 34.5, and platelet count 128,000. Sodium 139, potassium 4.2, chlorides 108, CO2 18, anion gap 13, BUN 49, with a creatinine 6.51. Chest x- ray shows left perihilar and right lower lobe infiltrates, likely consistent with pneumonia. Progress note dated 09/21/2020. 59-year-old male, with history of xzd-rg-ooocuixc cardiac arrest. The patient had bystander CPR provided by his . The patient likely sustained anoxic brain injury. The patient remains on the mechanical ventilator. Ventilator settings include the volume assist control mode, rate 28, tidal volume 500, FiO2 40%, PEEP of 10. Blood gases show pO2 of 83, pCO2 41, and a pH is 7.26. The patient's on D5W with 1 ampule of sodium bicarbonate, at 75 mL an hour. In addition, the patient is on propofol 60 mcg/kg/m, dopamine at 2.5 mcg/kg/m, dobutamine at 3.5 mcg/kg/m, saline at 10 mL an hour, and norepinephrine at 41 mcg/m. The patient's also getting vital high protein at 10 mL an hour. The patient is to receive hemodialysis today. The patient's on Zosyn empirically. White count 7.7, hemoglobin 11.5, hematocrit 33.8, platelet count 127,000. Sodium 137, potassium 4, chlorides 104, CO2 17, anion gap 16, BUN 56, creatinine 8.99. Chest x-rays consistent with bilateral infiltrates and atelectasis, which is worse compared to the prior x-ray. Progress note dated 09/22/2020. 59-year-old male with a history of cln-um-wryldewc cardiac arrest. Apparently, his provided CPR until EMS arrived. We feel the patient may have sustained significant anoxic brain injury, because the patient apparently was not intubated until he arrived in the emergency department. The patient did receive 3 defibrillations at the scene, and also to rounds of epinephrine. Apparently chest compressions were being provided by the Faustino device. Currently, the patient remains on mechanical ventilator. I think daily discussions with the , giving her updates. The patient remains on the volume assist control mode, rate 28, tidal volume 500, FiO2 60%, PEEP of 10. Blood gases show a PaO2 of 84, PaCO2 of 38, and a pH is 7.38. The patient's currently on D5W with 1 amp of sodium bicarbonate at 75 mL an hour, will follow at 30 g, dopamine at 2.5 mcg/kg/m, norepinephrine which is been weaned off, saline at 10 mL an hour, dobutamine at 3.5 mcg/kg/m, and amiodarone at 1 mg/m in addition, the patient's receiving vital high protein at goal, which is 27 mL an hour. The patient had a daily interruption of sedation today, and his mental status was not improved whatsoever. The patient was re-sedated. The was updated. White count 8.3, hemoglobin 11.5, hematocrit 30.4, platelet count 126,000. Sodium 133, potassium 3.6, chlorides 98, CO2 21, anion gap 14, BUN 49, and creatinine 8.20. Ionized calcium was low at 3.5. The patient did receive some calcium gluconate. Chest x-ray shows consolidation in the left lower lobe. Progress note dated 09/23/2020. 59-year-old male with history of smd-ss-ljdicdls cardiac arrest. His provided CPR at the scene. EMS arrived. The patient apparently was found to have a ventricular fibrillation arrest. The patient was defibrillated 3 times, and got to rounds of epinephrine. The patient was intubated in the emergency department. He remains on mechanical ventilator. Yesterday, the decided to make the patient comfort measures. Surprisingly, he became more alert. Hence, the comfort measures orders were rescinded. Off of sedation, the patient appears to be having some recovery of neurologic function. Currently, he's on the volume assist control mode, rate 28, tidal volume 500, FiO2 60%, and a PEEP of 10. Blood gases today show a PaO2 of 62, PaCO2 36, and pH is 7.36. Currently, the patient is on propofol at 50 mcg/kg/m, dobutamine at 3.5 mcg/kg/m, saline at 75 mL an hour, amiodarone at 0.5 mg/m, dopamine has been discontinued, and the patient's on vital high protein at 27 mL an hour, which is goal. We will DC the Zosyn. No hemodialysis planned for today. A brain CT showed similar findings. White count 7.4, hemoglobin 11.9, hematocrit 33, and platelet count 144,000. Sodium 134, potassium 4.2, chlorides 98, CO2 18, anion gap 18, BUN 50, creatinine 8.29. Calcium was 6.5. Chest x-ray shows low lung volumes, bibasilar interstitial opacities, small left-sided pleural effusion. Microbiologic studies are all negative. Progress note dated 09/24/2020. 59-year-old male with an zce-bj-hwxsqwqj cardiac arrest. His provided CPR at the scene. EMS arrived, and defibrillated the patient 3 times for ventricu lar fibrillation arrest. He also received 2 rounds of epinephrine at that time. The patient was brought into the emergency department, or he was intubated and mechanically ventilated. Currently, the patient is on volume assist control, rate 28, tidal volume 500, FiO2 60%, PEEP of 10. Blood gases show pO2 of 88, pCO2 37, and pH is 7.3.. The patient appeared uncomfortable on the ventilator, and therefore we switched him to the VC plus mode. We made the targeted tidal volume 500, and the inspiratory time 0.9 seconds. The other settings are the same including a rate of 28, FiO2 60%, and PEEP of 10. In addition, the patient can get Cleveprex for blood pressure control if his systolic is greater than 160 or mean greater than 100. He will have hemodialysis today and afterwards, we'll do a daily interruption of sedation. Drips today include saline at KVO, fentanyl at 1 mcg/kg/h, propofol 60 mcg/kg/m, dobutamine at 3.5 mcg/kg/m, amiodarone at 0.5 mg/m and vital high protein at 27 mL an hour, which is goal. Labs include a white count 9.2, hemoglobin 11.3, hematocrit 30.4, and a platelet count that was normal. Sodium 133, potassium 5.5, chlorides 97, CO2 15, anion gap 21, BUN 69, and creatinine 9.60. Chest x-ray is consistent with possible consolidation in the retrocardiac area as well as mild interstitial edema. Cardiac arrest, and acute hypoxic respiratory failure On 10/08/2020 patient seen in follow-up in the intensive care unit. Patient is awake and alert, his nodding his head appropriately to verbal questioning, has not attempted to verbally respond, he is following verbal commands, he is moving all 4 extremities although he is very generally weak. He is currently sitting up in a recliner, tolerating it well, yesterday he tolerated a total of 9 hours of pressure-support of 14 and CPAP of 5, he was placed on assist-control mode of ventilation at night with a rate of 26, tidal volume of 550, FiO2 of 40% and PEEP of 5. This morning he is back on pressure-support of 15 and CPAP of 5 this morning, tolerating it well. O2 sat is 100% on the pressure-support settings with FiO2 of 40%. Today's blood gas was reviewed showing pO2 of 117, pCO2 of 36, and pH of 7.45, and this was done on assist-control mode of ventilation with FiO2 of 40%. His white count today is 8.9, hemoglobin is 7.1, sodium is 134, potassium is 3.9, chloride is 97, CO2 is 25, anion gap is 95, creatinine is 5.87. Chest x-ray today shows slight worsening of the mid bilateral infiltra sha. Patient remains on IV Lasix 60 mg every 8 hours, his urine output is 50-60 ML per hour, overall she is still generally fluid overloaded, his last hemodialysis session was on 10/05/2020 with removal of 4 L of fluid. Otherwise he is breathing fairly comfortably. No significant secretions out of the tracheostomy. She was started on Eliquis yesterday on 2.5 mg twice daily, no significant bleeding from around the trach site. Lung sounds are diminished at the bases with some scattered rhonchi. Patient has had no fever or chills. Currently not on any antibiotics. He has completed a course of Zosyn which has been discontinued, blood and sputum cultures have shown no growth. Hemodynamic ally he remains stable, he is in atrial fibrillation with a controlled rate. He is tolerating tube feedings and patient is receiving Nepro at 51 with a goal of 51 and standard water flushes. Progress note dated 10/09/2020. This is a 59-year-old male who is been in the hospital now for a number of days. The patient was admitted to the hospital with an lpu-cp-chrgwpcw cardiac arrest. His provided CPR at the scene, and when EMS arrived, defibrillated 3 times, for ventricular fibrillation arrest. He was brought to the emergency room and was intubated. For a number of days, he was ventilator dependent. Currently, he's on the ventilator evening, on the volume assist control mode, rate 26, tidal volume 550, FiO2 40%, and PEEP of 5. Yesterday, when I saw him, he was on pressure support of 15, and CPAP of 5. We dropped down to pressure support of 10, and CPAP of 5. She'll be placed on this today. He will be dialyzed today. He is getting saline at 15 mL an hour, and Nepro at 40 mL an hour. Arterial blood gases today show a PaO2 of 137, pCO2 of 34, and pH is 7.4. The FiO2 on the ventilator was reduced to 30%. White count 7.4, hemoglobin 7.4, hematocrit 22.5, and platelet count 316,000. Sodium 133, potassium 4, chlorides 100, CO2 24, anion gap 9, BUN 78, and creatinine 5.28. Chest x-ray shows mild fluid overload. Progress note dated 10/10/2020. 59-year-old male, who is been the hospital now for a number of days, about 23 or so. The patient was admitted initially with an out of hospital cardiac arrest. He was provided CPR by his at the scene, and defibrillated by EMS with a right 3 times. He was brought to the emergency room and was intubated. For a n umber of days, and even weeks, he was later dependent. The patient did undergo a tracheostomy and PEG tube placement, he is now been weaned down to trach collar during the daytime, and maybe some pressure support and CPAP at nighttime. Currently, he is on trach collar 35%. He's been on that since 5:30 this morning. The patient at nighttime was on pressure support of 10, CPAP of 5, and an FiO2 35%. The patient is receiving Nepro at 40 mL now which is goal. The patient's getting saline at 15 mL now which can be discontinued. Hopefully, the patient is close to being discharged to long-term acute care. Finally, the Zosyn can be discontinued. White count 6.8, hemoglobin 7.4, hematocrit 23.4, and platelet count 322,000. A blood gas was done today and showed a PaO2 of 104, pCO2 of 36, and pH is 7.45. Sodium 133, potassium 3.8, chlorides 99, CO2 24, anion gap 10, BUN 64, and creatinine 4.80. Chest x-ray shows a bit of fluid overload. Objective - Vital Signs Vital signs: Vital Signs Temp 98.1 F 10/10/20 08:00 Pulse 98 10/10/20 08:00 Resp 18 10/10/20 08:00 BP 125/76 10/10/20 08:00 Pulse Ox 99 10/10/20 08:00 Intake & Output 10/09/20 10/10/20 10/10/20 18:59 06:59 18:59 Intake Total 609 813 53 Output Total 4000 0 0 Balance -3391 813 53 Weight 140.9 kg Intake: IV 269 243 13 0.9 Normal Saline 39 33 3 Pressure Bag Piperacillin-Tazobactam 3 100 100 .375 gm In Sodium Chloride 0.9% 100 ml @ 25 mls/hr IVPB Q12HR [facility] Rx #:[id number] Sodium Chloride 0.9% 500 130 110 10 ml @ 10 mls/hr IV .Q24H [facility] Rx#:[id number] Tube Feeding 280 480 40 Other 60 90 Output: Urine 0 0 0 Hemodialysis 4000 Other: Voiding Method Incontinent Incontinent Incontinent # Voids 0 0 ABP, PAP, CO, CI - Last Documented Arterial Blood Pressure 146/75 - Exam No acute distress, currently on trach collar at 35%, and awake and alert.. HEENT examination is grossly unremarkable. Neck supple. Full range of motion. No adenopathy thyromegaly or neck vein distention. There is a midline tracheostomy tube. Cardiovascular examination reveals regular rhythm rate. S1-S2 normal. No S3 or S4. No discernible murmur noted. Heart sounds distant. Heart rate 97 bpm. Lungs reveal scattered rhonchi, and some scattered crackles. Breath sounds are equal bilaterally but diminished throughout. There are no wheezes. Abdomen soft but without bowel sounds. No obvious masses or tenderness. A PEG tube is present. Extremities are intact. No cyanosis clubbing or edema. Skin is without rash or lesion. Neurologic examination reveals a patient with significant improvement in his overall neurologic status. - Labs CBC & Chem 7: 10/10/20 03:45 10/10/20 03:45 Labs: Abnormal Lab Results - Last 24 Hours (Table) 10/10/20 10/10/20 10/10/20 Range/Units 03:45 03:45 05:24 RBC 2.28 L (4.30-5.90) m/uL Hgb 7.4 L (13.0-17.5) gm/dL Hct 23.4 L (39.0-53.0) % MCV 102.6 H (80.0-100.0) fL RDW 15.8 H (11.5-15.5) % ABG Total CO2 26 H (19-24) mmol/L ABG O2 Saturation 98.6 H (94-97) % Sodium 133 L (137-145) mmol/L BUN 64 H (9-20) mg/dL Creatinine 4.80 H (0.66-1.25) mg/dL Glucose 106 H (74-99) mg/dL Assessment and Plan Assessment: #1. Acute hypoxic respiratory failure secondary to acute V. fib cardiac arrest and ST elevated myocardial infarction. Status post cardiac catheterization and stenting of the circumflex. #2. Severe ischemic cardiomyopathy and LV dysfunction and EF of 20%. #3. Acute hypoxic encephalopathy, improving. #4. Acute kidney injury secondary to acute tubular necrosis and cardiac arrest, patient is currently requiring hemodialysis. #5. Acute shock liver, improving. #6. Paroxysmal atrial fibrillation, currently remains in atrial fibrillation with a controlled rate, patient is now on Eliquis. #6. Hypothyroidism. #7. History of depression. #8. Fluid overload with extensive generalized edema in upper and lower extremities as well as scrotal swelling. Improving with hemodialysis. #9. Long-term intubation and mechanical ventilation, with failure to wean, status post tracheostomy and PEG tube placement on 10/01/2020. Plan: Plan dated 09/17/2020. We will attempt to wean the patient off the norepinephrine. We'll also do a daily interruption of sedation. In addition, we'll try to turn down the IV fluids. Chest x-ray clearly shows congestive heart failure. In addition, the patient will have a neurology consult and EEG. Additional recommendations and suggestions are forthcoming. Prognosis is very guarded. We will continue to follow and make recommendations where appropriate. Plan dated 09/18/2020. Currently, the patient's gas exchange is reasonable. Chest x-ray shows cardiomegaly. The patient remains on dobutamine at 3 mcg/kg/m. The patient has been sedated with propofol at 70 mcg/kg/m. Hopefully, the Impella device will come out today. Once that cell, it'll be easier to wean the patient. Additional recommendations and suggestions are forthcoming. I likely will do a daily interruption of sedation anyway. Neurology has been consulted. EEG was consistent with mild to moderate encephalopathy. Prognosis is guarded. We will continue to follow and make recommendations where appropriate. Plan dated 09/19/2020. Currently, the patient's doing worse. Patient's on numerous strips including dopamine, dobutamine, norepinephrine, propofol, fentanyl, heparin, and Nimbex. The patient has developed acute kidney injury, possibly related to ATN. In addition, the patient's ejection fraction of less than 20%. His prognosis is very poor. We'll have discussions with his at this point. Neurology has seen the patient. Cardiology is also involved in the care of this patient. We will continue to follow make recommendations where appropriate. Prognosis is very guarded. Plan dated 09/20/2020. Currently, the patient's manifesting signs and symptoms of multiorgan system failure. Currently, organ involvement with the heart, lungs, kidneys, and brain. The patient's on multiple drips, including dopamine, the beginning, norepinephrine, propofol, and fentanyl. The patient will get Reglan 10 mg 4 times a day, we will resume tube needs. Patient's currently on Zosyn 3.375 g every 12. Microbiology is negative. A PICC line will be placed. I will call the Luiza, give her an update. Overall prognosis is very poor. If she wants to continue life support, I would probably aspirin early trach and PEG tube placement. Plan dated 09/21/2020. Today, I had a very pelon discussion with the patient's , and daughter. The y removed the room on rounds. I gave them when I felt was a very honest assessment of their family member. I think the patient has an extremely poor prognosis given the events that took place on the day of his cardiac arrest. Very concerned about anoxic brain injury. On daily interruption of sedation, although the patient does move all 4 extremities, nothing purposeful is noted. I did tell the that I thought it was too early to give up on the patient. We'll continue to follow make recommendations were appropriate. In addition, the patient has very poor cardiac function, with an ejection fraction of less than 20%. Apparently, cardiology is also pain patient of the family. I think that's appropriate. The patient remains on D5W with sodium bicarbonate, propofol, dopamine, dobutamine, norepinephrine, and tube feeds. Plan dated 09/22/2020. The patient remains on the chemical ventilator. We been updating the daily. Blood gases are reasonable. The patient remains on a number drips including a sodium bicarbonate drip, propofol, dopamine, amiodarone, and dobutamine. Norepinephrine is been weaned off. The patient is on vital high protein at goal. No additional recommendations are made at this time. We will continue to follow and make suggestions where appropriate. The patient did have a daily interruption of sedation, with no improvement in his overall neurologic status. The was in the room, when we did this. Plan dated 09/23/2020. The patient remains on the mechanical ventilator. The patient's is updated on a daily basis. The patient was going to be comfort care yesterday, but because of some improvement neurologic function, the patient's changed her mind. Currently, he is on propofol, dobutamine, amiodarone, and nutrition. Dop amine has been discontinued. We will DC Zosyn. No hemodialysis today. The patient will be placed on a fentanyl drip if we cannot control the patient's respiratory rate and agitation just with propofol. Additional recommendations and suggestions are forthcoming. We will continue to follow and make recommendations where appropriate. Plan dated 09/24/2020. I told the nurse, that they could use Cleveprex, if the systolic blood pressures greater than 160 with a mean arterial pressures greater than 100. The patient will have hemodialysis today and afterwards, we will do a daily interruption of sedation. Because the patient was dyssynchronous with the mechanical ventilator, we went ahead and switch to the VC plus mode, with a targeted tidal volume of 500, and inspiratory time of 0.9 seconds. The patient remains on fentanyl drip, propofol drip, dobutamine drip, amiodarone drip, and is being nourished. Prognosis remains guarded. Additional recommendations and suggestions are forthcoming. We will continue to see the patient and make recommendations where appropriate. Plan dated 10/09/2020. Currently, the patient's doing much better. The pressure support yesterday was reduced from 15 to 10 cm water. The patient will have hemodialysis today. The plan is to eventually send the patient to a long-term acute care facility. This may happen later this week. After hemodialysis today, the patient is stable, we can try him on some trach. collar. Additional recommendations and suggestions are forthcoming. Prognosis is guarded. We'll continue to follow. Continue tube feedings. Plan dated 10/10/2020. The patient has been transitioned to tracheostomy collar. The patient's getting 35% oxygen. Last night, he was on pressure support of 10, and CPAP of 5. His saline IV can be discontinued. We'll discontinue the Zosyn as well. Recent cultures are negative. Prognosis remains guarded but overall, his clinical picture is significantly improved including his neurologic status. The plan is to get in to long-term acute care, once hemodialysis confined to 3 times a week. We will continue to follow and make recommendations where appropriate. Time with Patient: Less than 30
--- NOTE | 2020-10-10 09:42 | PN ---
PROGRESS NOTE Mr. Alcala is a 59-year-old male who presented with an acute myocardial infarction and cardiac arrest. Underwent cardiac catheterization and stenting performed by Dr. Kyaw Antoine on September 17. At that time he received stenting to the left circumflex. He had an Impella placed. He is in atrial fibrillation at this time. Has a tracheostomy. He is receiving dialysis. Hemodynamically, he is stable. His rate is controlled. He had a repeat echocardiogram performed on the to evaluate the ejection fraction and it remains quite impaired. He continues to be on amiodarone 200 mg twice a day, Eliquis 2.5 mg twice a day, Plavix 75 mg daily, lisinopril 5 mg daily, metoprolol tartrate 50 mg twice a day. PHYSICAL EXAMINATION: Blood pressure 125/70 with a heart rate in the 80s. LUNGS: Clear. HEART: Irregularly irregular S1, S2. No S3. No rub. ABDOMEN: Soft and nontender. EXTREMITIES: No edema. Tracheostomy and PEG tube noted. LAB DATA: Hemoglobin 7.4, BUN creatinine 64 and 4.8, potassium 3.8, sodium 133. IMPRESSION: 1. Status post myocardial infarction with stenting of the left circumflex. 2. Severe cardiomyopathy without significant improvement. 3. Atrial fibrillation persistent. 4. Respiratory failure requiring tracheostomy. 5. Renal failure on hemodialysis. RECOMMENDATION: Will continue present therapy at this time. A LifeVest has been ordered because of the persistent cardiomyopathy. Will await the input of Nephrology regarding the timing of transferred to [facility]. Depending on his blood pressure and heart rate, further adjustment of his medical regimen will be made. MMODL / LEVN: [id number] /
--- NOTE | 2020-10-10 10:49 | P.PN ---
Subjective Progress Note Date: 10/10/20 Principal diagnosis: cardiac arrest 59-year-old male with a history of hypertension, hypothyroidism, and obesity who presented to the ER after cardiac arrest in the field. He had multiple rounds of CPR, Epi, and Defib prior to obtaining ROSC. It appears that his down time in the field was approximately 30 minutes on review of the EMS run sheet. He was intubated and sedated he underwent a left heart cath with stent to the LAD and impella placement. Echocardiogram demonstrated an EF of less than 20% with global hypokenesis. He was determined to be in cardiogenic shock requiring dopamine, dobutamine, and levophed. He has required a Nimbex drip to maintain adequate ventilation until 09/20/20. He demonstrated shock liver on arrival. He has also had progressive anuric renal failure, nephrology was consulted HD was initiated on 09/21/20. He had one abnormal EEG with worsening of EEG on 09/20/20. We have been unable to wean sedation due to agitation and there are concerns for severe anoxic encephalopathy. His CXR was worsening and procalcitonin was elevated and he was started on zosyn with concerns for possible underlying PNA. He had not been awake or following commands with sedation holidays. On 09/22/20 he clear shook head no in response to questions. On 09/24 patient went into A fib with RVR during sedation holiday and amio gtt was started. CT head showed age- related atrophy without acute intracranial process. PG and trach were attempted on 09/29 but the patient desaturated. He has been on empiric zosyn for possible PNA. He was taken off propofol due to hypertriglyceridemia. Trach and peg were successfully placed on 10/01/20. He did have some postoperative bleeding around the trach site secondary to his IV heparin which was changed to subcutaneous heparin. He has had intermittent A. fib. The bleeding from his trach decreased and he was started on Eliquis. He has continued improve daily. 10/10 Doing well, denied having any complaints. No sob or pain. No fevers. Still getting daily dialyses per Rn. Objective - Vital Signs Vital signs: Vital Signs Temp 98.1 F 10/10/20 08:00 Pulse 104 H 10/10/20 09:00 Resp 28 H 10/10/20 09:00 BP 139/120 10/10/20 09:00 Pulse Ox 99 10/10/20 09:00 Intake & Output 10/09/20 10/10/20 10/10/20 18:59 06:59 18:59 Intake Total 609 813 53 Output Total 4000 0 4000 Balance -3392 813 3945 Weight 140.9 kg Intake: IV 269 243 13 0.9 Normal Saline 39 33 3 Pressure Bag Piperacillin-Tazobactam 3 100 100 .375 gm In Sodium Chloride 0.9% 100 ml @ 25 mls/hr IVPB Q12HR [facility] Rx #:[id number] Sodium Chloride 0.9% 500 130 110 10 ml @ 10 mls/hr IV .Q24H [facility] Rx#:[id number] Tube Feeding 280 480 40 Other 60 90 Output: Urine 0 0 0 Hemodialysis 4000 4000 Other: Voiding Method Incontinent Incontinent Incontinent # Voids 0 0 ABP, PAP, CO, CI - Last Documented Arterial Blood Pressure 144/73 - Exam General: non toxic, no distress, appears at stated age, obese Derm: warm, dry Head: atraumatic, normocephalic, symmetric Eyes: no lid lesion, anicteric sclera Mouth: no lip lesion, mucus membranes dry with lip cracking Cardiovascular: S1S2 reg, no murmur, positive posterior tibial pulse bilateral, Lungs: Rhonchi bilateral, no accessory muscle use him on vent, trach in place with sanagenous drainage. Abdominal: soft, nontender to palpation, no guarding, no appreciable organomegaly, Ext: no gross muscle atrophy, diffuse anasarca (improving), no contractures Neuro: wiggling toes possibly to commands. no squeezing hands, shakes head yes to pain Psych: Awake, appears comfortable, following commands, and does not appear anxious. - Labs CBC & Chem 7: 10/10/20 03:45 10/10/20 03:45 Labs: Abnormal Lab Results - Last 24 Hours (Table) 10/10/20 10/10/20 10/10/20 Range/Units 03:45 03:45 05:24 RBC 2.28 L (4.30-5.90) m/uL Hgb 7.4 L (13.0-17.5) gm/dL Hct 23.4 L (39.0-53.0) % MCV 102.6 H (80.0-100.0) fL RDW 15.8 H (11.5-15.5) % ABG Total CO2 26 H (19-24) mmol/L ABG O2 Saturation 98.6 H (94-97) % Sodium 133 L (137-145) mmol/L BUN 64 H (9-20) mg/dL Creatinine 4.80 H (0.66-1.25) mg/dL Glucose 106 H (74-99) mg/dL Assessment and Plan Plan: V. fib arrest due to ST segment elevated myocardial infarction status post PCI to the circumflex and impella placement Acute systolic congestive heart failure Ischemic cardiomyopathy with ejection fraction less than 20% P. A fib - dopamine off 09/23/20, dobutamine off, levophed off by 09/22/20 - cardio recs - ASA, Plavix, amio 200 mg bid. - Metoprolol and lisinopril (low dose only per nephrology) - statin - Plan is for life vest on discharge. Generalized Dermatitis -Acute skin clean and dry Hypoxic encephalopathy - improved, plan for LTACH Acute kidney injury secondary to hypoperfusion and likely ATN Hyperphosphatemia Hyperkalemia - nephrology recs - HD Thursday and then daily through Thursday, then likely could go to 4 times weekly once fluid status is improved. - Avoid nephrotoxic agents - maintain map >65 Acute hypoxic respiratory failure, Pneumonia possible gram negative completed treatment - off zosyn - pulm recs - pulm hygeine Anemia Thrombocytosis, reactive, resolved - component of acute blood loss anemia after trach - follow CBC - no indication for transfusion at this point in time. - start iron supplementation Morbid obesity with BMI 37.7 Shock liver, resolved Cardiogenic shock, resolved Hypothyroidism Thrombocytopenia, resolved Plan [facility] for [facility] on 10/11 DVT prophylaxis: Rosita Discussed with: Nursing A total of 35 minutes was spent on the care of this complex patient more than 50% of the time was spent in counseling and care coordination.
--- NOTE | 2020-10-10 11:16 | P.PN ---
<Genesis Quan - Last Filed: 10/10/20 11:10> Subjective Progress Note Date: 10/10/20 CHIEF COMPLAINT: Respiratory failure HISTORY OF PRESENT ILLNESS: Patient is status post trach and PEG tube placement on 10/01/2020. Patient is sitting up in bedside chair on trach collar. He is receiving hemodialysis. Patient has a small amount of blood around the tracheostomy site. Per nursing staff there is small amount of blood when he is suctioned. He is tolerating tube feeds. He is having bowel movements. Afebrile. WBC 6.8 hemoglobin 7.4 PHYSICAL EXAM: VITAL SIGNS: Reviewed. GENERAL: Well-developed in no acute distress. HEENT: No sclera icterus. Extraocular movements grossly intact. Moist buccal mucosa. Head is atraumatic, normocephalic. Tracheostomy site small amount of blood noted ABDOMEN: Soft. Nondistended. Nontender. PEG tube site clean dry and intact NEUROLOGIC: Alert and oriented. Cranial nerves II through XII grossly intact. ASSESSMENT: 1. Respiratory failure status post tracheostomy placement 2. Severe protein calorie malnutrition status post PEG tube placement PLAN: -Continue ICU management and supportive care -Continue to monitor tracheostomy site Physician Manager Resort note has been reviewed by physician. Signing provider agrees with the documented findings, assessment, and plan of care. Objective - Vital Signs Vital signs: Vital Signs Temp 98.1 F 10/10/20 08:00 Pulse 96 10/10/20 10:00 Resp 11 L 10/10/20 10:00 BP 139/120 10/10/20 09:00 Pulse Ox 100 10/10/20 10:00 Intake & Output 10/09/20 10/10/20 10/10/20 18:59 06:59 18:59 Intake Total 609 813 53 Output Total 4000 0 4000 Balance -3392 813 3942 Weight 140.9 kg Intake: IV 269 243 13 0.9 Normal Saline 39 33 3 Pressure Bag Piperacillin-Tazobactam 3 100 100 .375 gm In Sodium Chloride 0.9% 100 ml @ 25 mls/hr IVPB Q12HR [facility] Rx #:[id number] Sodium Chloride 0.9% 500 130 110 10 ml @ 10 mls/hr IV .Q24H [facility] Rx#:[id number] Tube Feeding 280 480 40 Other 60 90 Output: Urine 0 0 0 Hemodialysis 4000 4000 Other: Voiding Method Incontinent Incontinent Incontinent # Voids 0 0 ABP, PAP, CO, CI - Last Documented Arterial Blood Pressure 127/62 - Labs CBC & Chem 7: 10/10/20 03:45 10/10/20 03:45 Labs: Abnormal Lab Results - Last 24 Hours (Table) 10/10/20 10/10/20 10/10/20 Range/Units 03:45 03:45 05:24 RBC 2.28 L (4.30-5.90) m/uL Hgb 7.4 L (13.0-17.5) gm/dL Hct 23.4 L (39.0-53.0) % MCV 102.6 H (80.0-100.0) fL RDW 15.8 H (11.5-15.5) % ABG Total CO2 26 H (19-24) mmol/L ABG O2 Saturation 98.6 H (94-97) % Sodium 133 L (137-145) mmol/L BUN 64 H (9-20) mg/dL Creatinine 4.80 H (0.66-1.25) mg/dL Glucose 106 H (74-99) mg/dL <Franklin Keenan - Last Filed: 10/10/20 12:54> Subjective As above. Patient doing well. No active bleeding currently. Tolerating tube feeds. Denies pain. Objective - Vital Signs Vital signs: Vital Signs Temp 98.1 F 10/10/20 08:00 Pulse 95 10/10/20 12:00 Resp 19 10/10/20 12:00 BP 163/99 10/10/20 11:00 Pulse Ox 99 10/10/20 12:00 Intake & Output 10/09/20 10/10/20 10/10/20 18:59 06:59 18:59 Intake Total 609 813 693 Output Total 4000 0 4000 Balance -0330 813 3307 Weight 140.9 kg Intake: IV 269 243 13 0.9 Normal Saline 39 33 3 Pressure Bag Piperacillin-Tazobactam 3 100 100 .375 gm In Sodium Chloride 0.9% 100 ml @ 25 mls/hr IVPB Q12HR [facility] Rx #:[id number] Sodium Chloride 0.9% 500 130 110 10 ml @ 10 mls/hr IV .Q24H [facility] Rx#:[id number] Tube Feeding 280 480 240 Other 60 90 440 Output: Urine 0 0 0 Hemodialysis 4000 4000 Other: Voiding Method Incontinent Incontinent Incontinent # Voids 0 0 ABP, PAP, CO, CI - Last Documented Arterial Blood Pressure 138/61 - Labs CBC & Chem 7: 10/10/20 03:45 10/10/20 03:45 Labs: Abnormal Lab Results - Last 24 Hours (Table) 10/10/20 10/10/20 10/10/20 Range/Units 03:45 03:45 05:24 RBC 2.28 L (4.30-5.90) m/uL Hgb 7.4 L (13.0-17.5) gm/dL Hct 23.4 L (39.0-53.0) % MCV 102.6 H (80.0-100.0) fL RDW 15.8 H (11.5-15.5) % ABG Total CO2 26 H (19-24) mmol/L ABG O2 Saturation 98.6 H (94-97) % Sodium 133 L (137-145) mmol/L BUN 64 H (9-20) mg/dL Creatinine 4.80 H (0.66-1.25) mg/dL Glucose 106 H (74-99) mg/dL Assessment and Plan (1) Acute respiratory failure Current Visit: Yes Status: Acute Code(s): J96.00 - ACUTE RESPIRATORY FAILURE, UNSP W HYPOXIA OR HYPERCAPNIA SNOMED Code(s): 31175952
[2020-10-10] MEDS: SODIUM CHLORIDE 0.9% 500 ML IV SCH (11:18)
[2020-10-10] MEDS: PANTOPRAZOLE 40 MG/10 ML VIAL IVP SCH (11:21)
[2020-10-10] MEDS: PIPERACILLIN-TAZOBACTAM 3.375 GM in SODIUM CHLORIDE 0.9% 100 ML IVPB SCH ×2 (11:23→21:32)
[2020-10-10] MEDS: CALCIUM ACETATE 667 MG TAB PO SCH ×4 (11:28→21:31)
[2020-10-10] MEDS: METOPROLOL TARTRATE 50 MG TAB PO SCH ×2 (11:29→21:31)
[2020-10-10] MEDS: ATORVASTATIN 40 MG TAB PO SCH (11:29)
[2020-10-10] MEDS: APIXABAN 2.5 MG TABLET PO SCH ×2 (11:29→21:31)
[2020-10-10] MEDS: SODIUM BICARBONATE TAB 650 MG TAB PO SCH ×2 (11:29→21:31)
[2020-10-10] MEDS: AMIODARONE 200 MG TAB PO SCH ×2 (11:29→21:31)
[2020-10-10] MEDS: CLOPIDOGREL 75 MG TAB PO SCH (11:29)
[2020-10-10] MEDS: lisinopriL 5 MG TAB PO SCH (11:30)
[2020-10-10] MEDS: FERROUS SULFATE ORAL ELIXIR 300 MG/5 ML CUP OG-TUBE SCH (11:36)
--- NOTE | 2020-10-10 12:36 | P.PN ---
Subjective Patient is seen in follow-up for acute kidney injury. Tolerating dialysis well. Oliguric. On oral amiodarone and metoprolol for A. fib. No changes overnight. Vital signs: Stable. General: The patient appeared well nourished and normally developed. HEENT: Tracheostomy noted. LUNGS: Breath sounds decreased. HEART: Regular rate and rhythm. Abdomen: Soft, no distention. EXTREMITITES: 1+ edema. Objective - Vital Signs Vital signs: Vital Signs Temp 98.1 F 10/10/20 08:00 Pulse 95 10/10/20 12:00 Resp 19 10/10/20 12:00 BP 163/99 10/10/20 11:00 Pulse Ox 99 10/10/20 12:00 Intake & Output 10/09/20 10/10/20 10/10/20 18:59 06:59 18:59 Intake Total 609 813 693 Output Total 4000 0 4000 Balance -3391 813 -3307 Weight 140.9 kg Intake: IV 269 243 13 0.9 Normal Saline 39 33 3 Pressure Bag Piperacillin-Tazobactam 3 100 100 .375 gm In Sodium Chloride 0.9% 100 ml @ 25 mls/hr IVPB Q12HR [facility] Rx #:[id number] Sodium Chloride 0.9% 500 130 110 10 ml @ 10 mls/hr IV .Q24H [facility] Rx#:[id number] Tube Feeding 280 480 240 Other 60 90 440 Output: Urine 0 0 0 Hemodialysis 4000 4000 Other: Voiding Method Incontinent Incontinent Incontinent # Voids 0 0 ABP, PAP, CO, CI - Last Documented Arterial Blood Pressure 138/61 - Labs CBC & Chem 7: 10/10/20 03:45 10/10/20 03:45 Labs: Abnormal Lab Results - Last 24 Hours (Table) 10/10/20 10/10/20 10/10/20 Range/Units 03:45 03:45 05:24 RBC 2.28 L (4.30-5.90) m/uL Hgb 7.4 L (13.0-17.5) gm/dL Hct 23.4 L (39.0-53.0) % MCV 102.6 H (80.0-100.0) fL RDW 15.8 H (11.5-15.5) % ABG Total CO2 26 H (19-24) mmol/L ABG O2 Saturation 98.6 H (94-97) % Sodium 133 L (137-145) mmol/L BUN 64 H (9-20) mg/dL Creatinine 4.80 H (0.66-1.25) mg/dL Glucose 106 H (74-99) mg/dL Assessment and Plan Plan: Assessment: 1. Acute kidney injury secondary to ATN secondary to cardiac arrest and cardiogenic shock. Oliguric. Started on hemodialysis September 21. Has a permacath. 2. Status post cardiac arrest. 3. Coronary artery disease status post catheterization with stent placement to the circumflex on 09/17/2020. 4. Cardiogenic shock status post dopamine and dobutamine. Ejection fraction 20-25%. 5. Metabolic acidosis secondary to acute kidney injury. Status post bicarb drip. Improved. Now on oral bicarbonate. 6. Acute hypoxic respiratory failure. Status post tracheostomy. 7. Hypocalcemia secondary to acute kidney injury. Replaced. Better. 8. Hyperphosphatemia secondary to acute kidney injury maintained on PhosLo. 9. A. fib with RVR maintained on oral amiodarone and metoprolol. 10. Hyponatremia secondary to acute kidney injury. Hypervolemic. 11. Hyperkalemia secondary to acute kidney injury and metabolic acidosis. Resolved. 12. Anemia, multifactorial, secondary to acute illness and component of kidney failure. On Aranesp. Plan: Maintain tube feeds. Currently seen while undergoing hemodialysis. He will be maintained on a Thursday schedule. Monitor for renal recovery. Plan for [facility] upon discharge.
[2020-10-10] MEDS: ACETAMINOPHEN TAB 325 MG TAB PO PRN (13:40)
[2020-10-10 15:05] VITALS: BMI 42.1
[2020-10-10] MEDS: polyethylene glycoL 3350 17 GM POWD.PACK PO SCH (21:32)
[2020-10-11 04:16] LABS: HCT 24.7 % (39.0-53.0); HGB 7.7 gm/dL (13.0-17.5); Hypochromasia Moderate; MCH 32.1 pg (25.0-35.0); MCHC 31.4 g/dL (31.0-37.0); MCV 102.1 fL (80.0-100.0); Macrocytosis Slight; Mean Platelet Volume 9.3; Platelet Count 301 k/uL (150-450); RBC 2.41 m/uL (4.30-5.90); RDW 15.3 % (11.5-15.5); WBC 7.1 k/uL (3.8-10.6)
[2020-10-11 04:38] LABS: Calcium 9.1 mg/dL (8.4-10.2); Potassium 3.8 mmol/L (3.5-5.1)
[2020-10-11] MEDS ORDERED: Potassium Replacement Protocol 1 EACH MISC MISCELLANE PRN (04:48)
[2020-10-11] MEDS: LEVOTHYROXINE 50 MCG TAB PO SCH (05:57)
[2020-10-11] MEDS ORDERED: POTASSIUM BICARBONATE/CIT AC 20 MEQ TABLET.EFF NG-TUBE SCH (06:00)
[2020-10-11] MEDS: IPRATROPIUM-ALBUTEROL 3 ML NEB INHALATION SCH ×3 (07:25→15:19)
--- NOTE | 2020-10-11 07:52 | XR ---
E EXAMINATION TYPE: XR chest 1V portable DATE OF EXAM: 10/11/2020 COMPARISON: 10/10/2020 HISTORY: SOB, Follow Up FINDINGS: Indwelling tubes and catheters are unchanged. Patchy right perihilar and right upper infiltrate have progressed. Left lower lobe patchy density not ed as well. Stable appearance of the cardio-mediastinal structures at this time. Pleural effusion unchanged. IMPRESSION: 1. Patchy right perihilar and right upper infiltrate have progressed. Left lower lobe patchy density noted as well.Clinical correlation and follow up until resolution is recommended.
--- NOTE | 2020-10-11 08:54 | P.PN ---
Subjective Patient is seen in follow-up for acute kidney injury, hemodialysis dependent. Oliguric. On oral amiodarone and metoprolol for A. fib. No changes overnight. Vital signs: Stable. General: The patient appeared well nourished and normally developed. HEENT: Tracheostomy noted. LUNGS: Breath sounds decreased. HEART: Regular rate and rhythm. Abdomen: Soft, no distention. EXTREMITITES: 1+ edema. Objective - Vital Signs Vital signs: Vital Signs Temp 98.4 F 10/11/20 08:00 Pulse 93 10/11/20 08:00 Resp 40 H 10/11/20 08:00 BP 149/103 10/11/20 08:00 Pulse Ox 98 10/11/20 08:00 Intake & Output 10/10/20 10/11/20 10/11/20 18:59 06:59 18:59 Intake Total 841 900 50 Output Total 4000 0 0 Balance -3159 900 50 Weight 140.9 kg Intake: IV 16 100 0.9 Normal Saline 6 Pressure Bag Piperacillin-Tazobactam 3 100 .375 gm In Sodium Chloride 0.9% 100 ml @ 25 mls/hr IVPB Q12HR [facility] Rx #:[id number] Sodium Chloride 0.9% 500 10 ml @ 10 mls/hr IV .Q24H [facility] Rx#:[id number] Tube Feeding 550 700 50 Other 275 100 0 Output: Urine 0 0 0 Hemodialysis 4000 Other: Voiding Method Incontinent Incontinent Incontinent # Voids 0 ABP, PAP, CO, CI - Last Documented Arterial Blood Pressure 148/76 - Labs CBC & Chem 7: 10/11/20 03:59 10/11/20 03:59 Labs: Abnormal Lab Results - Last 24 Hours (Table) 10/11/20 10/11/20 Range/Units 03:59 03:59 RBC 2.41 L (4.30-5.90) m/uL Hgb 7.7 L (13.0-17.5) gm/dL Hct 24.7 L (39.0-53.0) % MCV 102.1 H (80.0-100.0) fL BUN 59 H (9-20) mg/dL Creatinine 4.28 H (0.66-1.25) mg/dL Glucose 117 H (74-99) mg/dL Assessment and Plan Plan: Assessment: 1. Acute kidney injury secondary to ATN secondary to cardiac arrest and cardiogenic shock. Oliguric. Started on hemodialysis September 21. Has a permacath. 2. Status post cardiac arrest. 3. Coronary artery disease status post catheterization with stent placement to the circumflex on 09/17/2020. 4. Cardiogenic shock status post dopamine and dobutamine. Ejection fraction 20-25%. 5. Metabolic acidosis secondary to acute kidney injury. Status post bicarb drip. Improved. Now on oral bicarbonate. 6. Acute hypoxic respiratory failure. Status post tracheostomy. 7. Hypocalcemia secondary to acute kidney injury. Resolved. 8. Hyperphosphatemia secondary to acute kidney injury maintained on PhosLo. 9. A. fib with RVR maintained on oral amiodarone and metoprolol. 10. Hyponatremia secondary to acute kidney injury. Hypervolemic. Improved. 11. Hyperkalemia secondary to acute kidney injury and metabolic acidosis. Resolved. 12. Anemia, multifactorial, secondary to acute illness and component of kidney failure. On Aranesp. Plan: Maintain tube feeds. Hemodialysis tomorrow. Monitor for renal recovery outpatient. Plan for [facility] upon discharge.
[2020-10-11] MEDS: SODIUM CHLORIDE 0.9% 500 ML IV SCH (09:32)
[2020-10-11] MEDS: PANTOPRAZOLE 40 MG/10 ML VIAL IVP SCH (09:45)
[2020-10-11] MEDS: METOPROLOL TARTRATE 50 MG TAB PO SCH (09:45)
[2020-10-11] MEDS: SODIUM BICARBONATE TAB 650 MG TAB PO SCH (09:45)
[2020-10-11] MEDS: CALCIUM ACETATE 667 MG TAB PO SCH ×2 (09:45→12:45)
[2020-10-11] MEDS: APIXABAN 2.5 MG TABLET PO SCH (09:46)
[2020-10-11] MEDS: CLOPIDOGREL 75 MG TAB PO SCH (09:46)
[2020-10-11] MEDS: lisinopriL 5 MG TAB PO SCH (09:46)
[2020-10-11] MEDS: AMIODARONE 200 MG TAB PO SCH (09:46)
[2020-10-11] MEDS: ATORVASTATIN 40 MG TAB PO SCH (09:46)
--- NOTE | 2020-10-11 09:56 | P.DS ---
Providers Date of admission: 09/17/20 01:45 Expected date of discharge: 10/11/20 Attending physician: Magaly Menendez MD Consults: 09/17/20 01:41 Consult Physician Routine Consulting Provider: Diane Antoine Consult Reason/Comments: stemi Do you want consulting provider notified?: Yes 09/17/20 06:24 Consult Physician Routine Consulting Provider: Prudencio Queen Consult Reason/Comments: Ventilator Management Do you want consulting provider notified?: Yes, Notify in am 09/17/20 08:10 Consult Physician Stat Consulting Provider: Fadi Johnson Consult Reason/Comments: rule out anoxic encephalopathy Do you want consulting provider notified?: Yes 09/19/20 08:16 Consult Physician Urgent Consulting Provider: Adore Akins Consult Reason/Comments: STEMI, EFRAIN Do you want consulting provider notified?: Yes 09/20/20 10:13 Consult Physician Urgent Consulting Provider: Santiago Charles Consult Reason/Comments: placement of hemodialysis catheter Do you want consulting provider notified?: Yes 09/27/20 08:20 Consult Physician Routine Consulting Provider: Santiago Charles Consult Reason/Comments: US of right lower extremity Do you want consulting provider notified?: Yes 09/27/20 12:34 Consult Physician Routine Consulting Provider: Franklin Keenan Consult Reason/Comments: Tracheostomy and Peg tube Do you want consulting provider notified?: Yes 09/27/20 13:16 Consult Physician Routine Consulting Provider: Rush Machado Consult Reason/Comments: Acute ischemia of the lower right leg Do you want consulting provider notified?: Yes 09/27/20 17:16 Consult Physician Routine Consulting Provider: Rush Machado Consult Reason/Comments: Temporary dialysis catheter Do you want consulting provider notified?: Yes Primary care physician: [facility] Course: 59-year-old male with a history of hypertension, hypothyroidism, and obesity who presented to the ER after cardiac arrest. He had multiple rounds of CPR, Epi, and Defib prior to obtaining ROSC. It appears that his down time in the field was approximately 30 minutes on review of the EMS run sheet. He was found to have ST elevation NE. He was intubated and sedated he underwent a left heart cath with stent to the LAD and impella placement. Echocardiogram demonstrated an EF of less than 20% with global hypokenesis. He was determined to be in cardiogenic shock requiring dopamine, dobutamine, and levophed. He was started on aspirin, plavix. He has required a Nimbex drip to maintain adequate ventilation until 09/20/20. He demonstrated shock liver on arrival. He has also had progressive anuric renal failure, nephrology was consulted HD was initiated on 09/21/20. He currently has a permacath for dialysis. Was requiring dialysis daily until 10/11 when he was switched to M/W/F. Metoprolol and lisinopril were initiated when his bp stabilized. He had one abnormal EEG with worsening of EEG on 09/20/20. There were concerns for severe anoxic encephalopathy. CT head showed age- related atrophy without acute intracranial process. His mental status is currently ok, he is able to communicate by writing on the board. ICU course was also significant for hypoxia and worsening infiltrates on his CXR, procalcitonin was elevated and he was started on zosyn with concerns for possible underlying PNA. On 09/24 patient went into A fib with RVR during sedation holiday and amio gtt was started. That was later switched to P.o. He was also started on eliquis. He was taken off propofol due to hypertriglyceridemia. PEG and trach were attempted on 09/29 but the patient desaturated. Trach and peg were successfully placed on 10/01/20. He did have some postoperative bleeding around the trach site secondary to his IV heparin which was changed to subcutaneous heparin. He has continued improve daily. He is currently ready for discharge to LTAC. Time for discharge 35 min Patient Condition at Discharge: Critical Plan - Discharge Summary New Discharge Prescriptions: New Amiodarone [Cordarone] 200 mg PO BID tab bisacodyL [Dulcolax] 10 mg RECTAL DAILY PRN supp PRN Reason: Constipation Apixaban [Eliquis] 2.5 mg PO BID tablet Atorvastatin [Lipitor] 40 mg PO DAILY tab Calcium Acetate [PhosLo] 1,334 mg PO QID tab Lactulose [Cephulac] 30 gm PO DAILY PRN ml PRN Reason: Constipation Ipratropium-Albuterol Nebulize [Duoneb 0.5 mg-3 mg/3 ml Soln] 3 ml INHALATION RT-QID ml Ferrous Sulfate Oral Elixir [Feosol Liquid] 300 mg OG-TUBE W/LUNCH ml Metoprolol Tartrate [Lopressor] 50 mg PO BID tab polyethylene glycoL 3350 [Miralax] 17 gm PO HS powd.pack Clopidogrel [Plavix] 75 mg PO DAILY tab Sodium Bicarbonate Tab 650 mg PO BID tab lisinopriL [Zestril] 5 mg PO DAILY tab Continue Levothyroxine Sodium [Synthroid] 50 mcg PO DAILY Discontinued Lisinopril-Hctz 20-12.5 mg [Zestoretic 20-12.5] 1 tab PO DAILY Acetaminophen/Diphenhydramine [Tylenol PM 500-25mg] 2 tab PO HS Meloxicam [Mobic] 7.5 mg PO DAILY Discharge Medication List Levothyroxine Sodium [Synthroid] 50 mcg PO DAILY 09/17/20 [History] Amiodarone [Cordarone] 200 mg PO BID tab 10/11/20 [Rx] Apixaban [Eliquis] 2.5 mg PO BID tablet 10/11/20 [Rx] Atorvastatin [Lipitor] 40 mg PO DAILY tab 10/11/20 [Rx] Calcium Acetate [PhosLo] 1,334 mg PO QID tab 10/11/20 [Rx] Clopidogrel [Plavix] 75 mg PO DAILY tab 10/11/20 [Rx] Ferrous Sulfate Oral Elixir [Feosol Liquid] 300 mg OG-TUBE W/LUNCH ml 10/11/20 [Rx] Ipratropium-Albuterol Nebulize [Duoneb 0.5 mg-3 mg/3 ml Soln] 3 ml INHALATION RT-QID ml 10/11/20 [Rx] Lactulose [Cephulac] 30 gm PO DAILY PRN ml 10/11/20 [Rx] Metoprolol Tartrate [Lopressor] 50 mg PO BID tab 10/11/20 [Rx] Sodium Bicarbonate Tab 650 mg PO BID tab 10/11/20 [Rx] bisacodyL [Dulcolax] 10 mg RECTAL DAILY PRN supp 10/11/20 [Rx] lisinopriL [Zestril] 5 mg PO DAILY tab 10/11/20 [Rx] polyethylene glycoL 3350 [Miralax] 17 gm PO HS powd.pack 10/11/20 [Rx] Follow up Appointment(s)/Referral(s): Diane Antoine MD [STAFF PHYSICIAN] - 1 Week None,Stated [REFERRING] - 1-2 days
--- NOTE | 2020-10-11 10:31 | P.PN ---
Subjective Progress Note Date: 10/11/20 Principal diagnosis: Cardiac arrest. Pulmonary consult dated 09/17/2020. 59-year-old male who apparently had an nnr-ea-ylipdffz cardiac arrest. EMS was called. His provided is danger chest compressions. When EMS arrived, the patient was in ventricular fibrillation arrest. The patient apparently started having chest compressions, received 3 defibrillations, and 2 rounds of epinephrine. The patient was apparently then intubated in the emergency room by the emergency room physician. The patient was taken to the [facility]. The patient had a stent placed in his circumflex coronary artery. Currently, he's on the ventilator. He is on the volume assist control mode, tidal volume 500, rate 24, FiO2 40%, PEEP of 8. Blood gases on the same settings, except 50%, patricia wed PaO2 of 127 pCO2 of 40, and a pH 7.36. The patient remains on a Lasix drip at 10 mg an hour saline at 150 mL an hour, propofol at 40 mcg/kg/m, norepinephrine at 2 mcg/m. We are going to do a daily interruption of sedation to evaluate the patient's neurologic status. In addition, the patient will need an EEG, and neurology consultation. We'll attempt to wean the norepinephrine. White count 11.4, hemoglobin, hematocrit, and platelet count all normal. PT 15.4, INR 1.5, PTT 52, and d-dimer greater than 34.10. Sodium 141, potassium 3.8, chlorides 107, CO2 23, anion gap 11, BUN 25, and creatinine 1.32. AST 347, ALT is 296, and LDH 2314. Troponins were 0.238 and 3.510. Chest x-rays co nsistent with cardiomegaly, and CHF. Progress note dated 09/18/2020. 59-year-old male with a history of vsc-xw-wjlxrblx cardiac arrest. The patient may have had a prolonged period of resuscitation. The patient was receiving bystander CPR by his . EMS arrived, and continue with chest compressions, defibrillation, and 2 rounds of epinephrine. The patient was intubated in the emergency department by the emergency room physician. The patient was taken to the catheterization laboratory. His stent placement in circumflex coronary artery, and also, an Impella device was inserted. Currently, white count 12.5, hemoglobin 14.3, hematocrit 42.8, and platelet count 168,000. Blood gases show pO2 70, pCO2 35, and a pH is 7.42. His ventilator settings include the volume assist control mode, rate 24, tidal volume 500, FiO2 50%, PEEP of 10. The patient remains on dobutamine at 3 g kilogram per minute, propofol at 70 mcg/kg/m, saline at 125 mL an hour, and heparin via weightbase protocol. Tube feedings has not yet been started. Hopefully, the Impella can be removed today. Sodium 143, potassium 3.1, chlorides 111, CO2 22, anion gap 10, BUN 27, creatinine 1.78. Other than cardiomegaly, the chest x-ray looks pretty good. Progress note dated 09/19/2020. 59-year-old male with a history of tak-cw-qxhzhjoo cardiac arrest. The patient appears to have a significantly prolonged period of resuscitation, and may not have received proper oxygenation before arriving in the emergency room. The patient initially had bystander CPR by his . EMS arrived, and provided chest compressions. The patient was defibrillated 3 and received 2 rounds of epinephrine. The patient was not intubated until they arrived in the emergency department. The patient was taken to the catheterization laboratory. The patient is stent placed in his circumflex coronary artery. In addition, an Imp lizbeth device was inserted, and that was removed yesterday. Currently, the patient's on the volume assist control mode rate of 24, to be increased up to 28, tidal volume 500, FiO2 50%, PEEP of 15. The FiO2 be dropped down to 40%. Arterial blood gases show pO2 of 109, pCO2 of 52, and a pH is 7.23. Currently, the patient's on saline 75 mL an hour, dopamine at 2.5 mcg/kg/m, dobutamine at 3.5 mcg/kg/m, norepinephrine at 40 mcg/m, propofol at 60 mcg/kg/m, fentanyl at 2 mcg/kg/h, heparin weight based protocol, and Nimbex at 0.5 mcg/kg/m, with xaudg-hq-lftc monitoring. Nephrology will be consulted for worsening renal function. In addition, we'll start the patient on tube feeds. White count is 13.7, hemoglobin 13.5, hematocrit 38.9, platelet count 159,000. Sodium 141, potassium 4.3, chlorides 109, CO2 21, anion gap 11, BUN and creatinine are 38 and 3.38. Chest x-ray shows bibasilar infiltrates and/or atelectasis, right greater than left. Progress note dated 09/20/2020. 59-year-old male with a history of rru-bw-xuosuwqr cardiac arrest. The patient name sustained significant anoxic brain injury. He remains on mechanical ventilator. He is on the volume assist control mode, rate 28 tidal volume 500, FiO2 40%, PEEP of 15. Blood gases showed pO2 of 88, pCO2 43, and a pH is 7.24. These blood gases are consistent with a mild metabolic acidosis. The patient remains on saline at 70 mL an hour, dopamine at 2.5 mcg/kg/m, dobutamine at 3.5 mcg/kg/m, norepinephrine 33 mcg/m, Nimbex has been weaned off, propofol 50 mcg/kg/m, fentanyl 1 mcg/kg/h, and tube feedings are currently on hold because of high residuals. The patient will have a PICC line placed. The patient's currently on Zosyn. Microbiology is negative. Echocardiogram shows an ejection fraction of less than 20%. He'll be started on Reglan. After he received Reglan, tube feeds will be resumed. White count is 9.1, hemoglobin 12, hematocrit 34.5, and platelet count 128,000. Sodium 139, potassium 4.2, chlorides 108, CO2 18, anion gap 13, BUN 49, with a creatinine 6.51. Chest x- ray shows left perihilar and right lower lobe infiltrates, likely consistent with pneumonia. Progress note dated 09/21/2020. 59-year-old male, with history of jmg-og-vmxykllc cardiac arrest. The patient had bystander CPR provided by his . The patient likely sustained anoxic brain injury. The patient remains on the mechanical ventilator. Ventilator settings include the volume assist control mode, rate 28, tidal volume 500, FiO2 40%, PEEP of 10. Blood gases show pO2 of 83, pCO2 41, and a pH is 7.26. The patient's on D5W with 1 ampule of sodium bicarbonate, at 75 mL an hour. In addition, the patient is on propofol 60 mcg/kg/m, dopamine at 2.5 mcg/kg/m, dobutamine at 3.5 mcg/kg/m, saline at 10 mL an hour, and norepinephrine at 41 mcg/m. The patient's also getting vital high protein at 10 mL an hour. The patient is to receive hemodialysis today. The patient's on Zosyn empirically. White count 7.7, hemoglobin 11.5, hematocrit 33.8, platelet count 127,000. Sodium 137, potassium 4, chlorides 104, CO2 17, anion gap 16, BUN 56, creatinine 8.99. Chest x-rays consistent with bilateral infiltrates and atelectasis, which is worse compared to the prior x-ray. Progress note dated 09/22/2020. 59-year-old male with a history of gya-cf-rurqbwuf cardiac arrest. Apparently, his provided CPR until EMS arrived. We feel the patient may have sustained significant anoxic brain injury, because the patient apparently was not intubated until he arrived in the emergency department. The patient did receive 3 defibrillations at the scene, and also to rounds of epinephrine. Apparently chest compressions were being provided by the Faustino device. Currently, the patient remains on mechanical ventilator. I think daily discussions with the , giving her updates. The patient remains on the volume assist control mode, rate 28, tidal volume 500, FiO2 60%, PEEP of 10. Blood gases show a PaO2 of 84, PaCO2 of 38, and a pH is 7.38. The patient's currently on D5W with 1 amp of sodium bicarbonate at 75 mL an hour, will follow at 30 g, dopamine at 2.5 mcg/kg/m, norepinephrine which is been weaned off, saline at 10 mL an hour, dobutamine at 3.5 mcg/kg/m, and amiodarone at 1 mg/m in addition, the patient's receiving vital high protein at goal, which is 27 mL an hour. The patient had a daily interruption of sedation today, and his mental status was not improved whatsoever. The patient was re-sedated. The was updated. White count 8.3, hemoglobin 11.5, hematocrit 30.4, platelet count 126,000. Sodium 133, potassium 3.6, chlorides 98, CO2 21, anion gap 14, BUN 49, and creatinine 8.20. Ionized calcium was low at 3.5. The patient did receive some calcium gluconate. Chest x-ray shows consolidation in the left lower lobe. Progress note dated 09/23/2020. 59-year-old male with history of mio-xz-tbwyxnup cardiac arrest. His provided CPR at the scene. EMS arrived. The patient apparently was found to have a ventricular fibrillation arrest. The patient was defibrillated 3 times, and got to rounds of epinephrine. The patient was intubated in the emergency department. He remains on mechanical ventilator. Yesterday, the decided to make the patient comfort measures. Surprisingly, he became more alert. Hence, the comfort measures orders were rescinded. Off of sedation, the patient appears to be having some recovery of neurologic function. Currently, he's on the volume assist control mode, rate 28, tidal volume 500, FiO2 60%, and a PEEP of 10. Blood gases today show a PaO2 of 62, PaCO2 36, and pH is 7.36. Currently, the patient is on propofol at 50 mcg/kg/m, dobutamine at 3.5 mcg/kg/m, saline at 75 mL an hour, amiodarone at 0.5 mg/m, dopamine has been discontinued, and the patient's on vital high protein at 27 mL an hour, which is goal. We will DC the Zosyn. No hemodialysis planned for today. A brain CT showed similar findings. White count 7.4, hemoglobin 11.9, hematocrit 33, and platelet count 144,000. Sodium 134, potassium 4.2, chlorides 98, CO2 18, anion gap 18, BUN 50, creatinine 8.29. Calcium was 6.5. Chest x-ray shows low lung volumes, bibasilar interstitial opacities, small left-sided pleural effusion. Microbiologic studies are all negative. Progress note dated 09/24/2020. 59-year-old male with an ccs-ta-kyybtmdo cardiac arrest. His provided CPR at the scene. EMS arrived, and defibrillated the patient 3 times for ventricu lar fibrillation arrest. He also received 2 rounds of epinephrine at that time. The patient was brought into the emergency department, or he was intubated and mechanically ventilated. Currently, the patient is on volume assist control, rate 28, tidal volume 500, FiO2 60%, PEEP of 10. Blood gases show pO2 of 88, pCO2 37, and pH is 7.3.. The patient appeared uncomfortable on the ventilator, and therefore we switched him to the VC plus mode. We made the targeted tidal volume 500, and the inspiratory time 0.9 seconds. The other settings are the same including a rate of 28, FiO2 60%, and PEEP of 10. In addition, the patient can get Cleveprex for blood pressure control if his systolic is greater than 160 or mean greater than 100. He will have hemodialysis today and afterwards, we'll do a daily interruption of sedation. Drips today include saline at KVO, fentanyl at 1 mcg/kg/h, propofol 60 mcg/kg/m, dobutamine at 3.5 mcg/kg/m, amiodarone at 0.5 mg/m and vital high protein at 27 mL an hour, which is goal. Labs include a white count 9.2, hemoglobin 11.3, hematocrit 30.4, and a platelet count that was normal. Sodium 133, potassium 5.5, chlorides 97, CO2 15, anion gap 21, BUN 69, and creatinine 9.60. Chest x-ray is consistent with possible consolidation in the retrocardiac area as well as mild interstitial edema. Cardiac arrest, and acute hypoxic respiratory failure On 10/08/2020 patient seen in follow-up in the intensive care unit. Patient is awake and alert, his nodding his head appropriately to verbal questioning, has not attempted to verbally respond, he is following verbal commands, he is moving all 4 extremities although he is very generally weak. He is currently sitting up in a recliner, tolerating it well, yesterday he tolerated a total of 9 hours of pressure-support of 14 and CPAP of 5, he was placed on assist-control mode of ventilation at night with a rate of 26, tidal volume of 550, FiO2 of 40% and PEEP of 5. This morning he is back on pressure-support of 15 and CPAP of 5 this morning, tolerating it well. O2 sat is 100% on the pressure-support settings with FiO2 of 40%. Today's blood gas was reviewed showing pO2 of 117, pCO2 of 36, and pH of 7.45, and this was done on assist-control mode of ventilation with FiO2 of 40%. His white count today is 8.9, hemoglobin is 7.1, sodium is 134, potassium is 3.9, chloride is 97, CO2 is 25, anion gap is 95, creatinine is 5.87. Chest x-ray today shows slight worsening of the mid bilateral infiltra sha. Patient remains on IV Lasix 60 mg every 8 hours, his urine output is 50-60 ML per hour, overall she is still generally fluid overloaded, his last hemodialysis session was on 10/05/2020 with removal of 4 L of fluid. Otherwise he is breathing fairly comfortably. No significant secretions out of the tracheostomy. She was started on Eliquis yesterday on 2.5 mg twice daily, no significant bleeding from around the trach site. Lung sounds are diminished at the bases with some scattered rhonchi. Patient has had no fever or chills. Currently not on any antibiotics. He has completed a course of Zosyn which has been discontinued, blood and sputum cultures have shown no growth. Hemodynamic ally he remains stable, he is in atrial fibrillation with a controlled rate. He is tolerating tube feedings and patient is receiving Nepro at 51 with a goal of 51 and standard water flushes. Progress note dated 10/09/2020. This is a 59-year-old male who is been in the hospital now for a number of days. The patient was admitted to the hospital with an yhr-gm-kidkcrih cardiac arrest. His provided CPR at the scene, and when EMS arrived, defibrillated 3 times, for ventricular fibrillation arrest. He was brought to the emergency room and was intubated. For a number of days, he was ventilator dependent. Currently, he's on the ventilator evening, on the volume assist control mode, rate 26, tidal volume 550, FiO2 40%, and PEEP of 5. Yesterday, when I saw him, he was on pressure support of 15, and CPAP of 5. We dropped down to pressure support of 10, and CPAP of 5. She'll be placed on this today. He will be dialyzed today. He is getting saline at 15 mL an hour, and Nepro at 40 mL an hour. Arterial blood gases today show a PaO2 of 137, pCO2 of 34, and pH is 7.4. The FiO2 on the ventilator was reduced to 30%. White count 7.4, hemoglobin 7.4, hematocrit 22.5, and platelet count 316,000. Sodium 133, potassium 4, chlorides 100, CO2 24, anion gap 9, BUN 78, and creatinine 5.28. Chest x-ray shows mild fluid overload. Progress note dated 10/10/2020. 59-year-old male, who is been the hospital now for a number of days, about 23 or so. The patient was admitted initially with an out of hospital cardiac arrest. He was provided CPR by his at the scene, and defibrillated by EMS with a right 3 times. He was brought to the emergency room and was intubated. For a n umber of days, and even weeks, he was later dependent. The patient did undergo a tracheostomy and PEG tube placement, he is now been weaned down to trach collar during the daytime, and maybe some pressure support and CPAP at nighttime. Currently, he is on trach collar 35%. He's been on that since 5:30 this morning. The patient at nighttime was on pressure support of 10, CPAP of 5, and an FiO2 35%. The patient is receiving Nepro at 40 mL now which is goal. The patient's getting saline at 15 mL now which can be discontinued. Hopefully, the patient is close to being discharged to long-term acute care. Finally, the Zosyn can be discontinued. White count 6.8, hemoglobin 7.4, hematocrit 23.4, and platelet count 322,000. A blood gas was done today and showed a PaO2 of 104, pCO2 of 36, and pH is 7.45. Sodium 133, potassium 3.8, chlorides 99, CO2 24, anion gap 10, BUN 64, and creatinine 4.80. Chest x-ray shows a bit of fluid overload. Progress note dated 10/11/2020. 59-year-old male, with history of tki-lc-paoaqlbv cardiac arrest. The patient has been here in the hospital for 24 days. The patient was initially intubated and mechanically ventilated. Because of failure to wean from mechanical ventilation, the patient was eventually taken to the operating room for tracheostomy and PEG tube placement. The patient had been weaned down to trach collar during the daytime, with pressure support of 10 and CPAP of 5 at nighttime. Apparently sometime today, he developed some respiratory difficulty with a high respiratory rate. The patient was placed back on the volume assist control mode rate of 26, tidal volume 500, FiO2 40%, PEEP of 5. That seemed to settle the patient down very nicely. The patient continues on Zosyn. He's not receiving any IV fluids. Tube feeds are currently on hold. He is typically on Nepro at 50 mL an hour, which is goal. White count 7.1, hemoglobin 7.7, hematocrit 24.7, and platelet count 301,000. Sodium, potassium, chloride, CO2, anion gap, are all normal. BUN is 59 with a creatinine of 4.28. The patient has a patchy right perihilar and right upper lobe infiltrate which are bit worse. This may reflect aspiration. Objective - Vital Signs Vital signs: Vital Signs Temp 98.4 F 10/11/20 08:00 Pulse 95 10/11/20 10:00 Resp 32 H 10/11/20 10:00 BP 137/93 10/11/20 10:00 Pulse Ox 100 10/11/20 10:00 Intake & Output 10/10/20 10/11/20 10/11/20 18:59 06:59 18:59 Intake Total 841 900 150 Output Total 4000 0 0 Balance -3159 900 150 Weight 140.9 kg Intake: IV 16 100 0.9 Normal Saline 6 Pressure Bag Piperacillin-Tazobactam 3 100 .375 gm In Sodium Chloride 0.9% 100 ml @ 25 mls/hr IVPB Q12HR [facility] Rx #:[id number] Sodium Chloride 0.9% 500 10 ml @ 10 mls/hr IV .Q24H [facility] Rx#:[id number] Tube Feeding 550 700 100 Other 275 100 50 Output: Urine 0 0 0 Hemodialysis 4000 Other: Voiding Method Incontinent Incontinent Incontinent # Voids 0 ABP, PAP, CO, CI - Last Documented Arterial Blood Pressure 148/76 - Exam No acute distress, currently on PSV 10, and CPAP 5. Respiratory rate is in the low 30s. HEENT examination is grossly unremarkable. Neck supple. Full range of motion. No adenopathy thyromegaly or neck vein distention. There is a midline tracheostomy tube. Cardiovascular examination reveals regular rhythm rate. S1-S2 normal. No S3 or S4. No discernible murmur noted. Heart sounds distant. Heart rate 95 bpm. Lungs reveal bilateral rhonchi. Breath sounds are equal. No wheezes or crackles. Abdomen soft but without bowel sounds. No obvious masses or tenderness. A PEG tube is present. Extremities are intact. No cyanosis clubbing or edema. Skin is without rash or lesion. Neurologic examination reveals a patient with significant improvement in his overall neurologic status. - Labs CBC & Chem 7: 07/22/21 03:59 10/11/20 03:59 Labs: Abnormal Lab Results - Last 24 Hours (Table) 10/11/20 10/11/20 Range/Units 03:59 03:59 RBC 2.41 L (4.30-5.90) m/uL Hgb 7.7 L (13.0-17.5) gm/dL Hct 24.7 L (39.0-53.0) % MCV 102.1 H (80.0-100.0) fL BUN 59 H (9-20) mg/dL Creatinine 4.28 H (0.66-1.25) mg/dL Glucose 117 H (74-99) mg/dL Assessment and Plan Assessment: #1. Acute hypoxic respiratory failure secondary to acute V. fib cardiac arrest and ST elevated myocardial infarction. Status post cardiac catheterization and stenting of the circumflex. #2. Severe ischemic cardiomyopathy and LV dysfunction and EF of 20%. #3. Acute hypoxic encephalopathy, improving. #4. Acute kidney injury secondary to acute tubular necrosis and cardiac arrest, patient is currently requiring hemodialysis. #5. Acute shock liver, improving. #6. Paroxysmal atrial fibrillation, currently remains in atrial fibrillation with a controlled rate, patient is now on Eliquis. #6. Hypothyroidism. #7. History of depression. #8. Fluid overload with extensive generalized edema in upper and lower extremities as well as scrotal swelling. Improving with hemodialysis. #9. Long-term intubation and mechanical ventilation, with failure to wean, status post tracheostomy and PEG tube placement on 10/01/2020. Plan: Plan dated 09/17/2020. We will attempt to wean the patient off the norepinephrine. We'll also do a daily interruption of sedation. In addition, we'll try to turn down the IV fluids. Chest x-ray clearly shows congestive heart failure. In addition, the patient will have a neurology consult and EEG. Additional recommendations and suggestions are forthcoming. Prognosis is very guarded. We will continue to follow and make recommendations where appropriate. Plan dated 09/18/2020. Currently, the patient's gas exchange is reasonable. Chest x-ray shows cardiomegaly. The patient remains on dobutamine at 3 mcg/kg/m. The patient has been sedated with propofol at 70 mcg/kg/m. Hopefully, the Impella device will come out today. Once that cell, it'll be easier to wean the patient. Additional recommendations and suggestions are forthcoming. I likely will do a daily interruption of sedation anyway. Neurology has been consulted. EEG was consistent with mild to moderate encephalopathy. Prognosis is guarded. We will continue to follow and make recommendations where appropriate. Plan dated 09/19/2020. Currently, the patient's doing worse. Patient's on numerous strips including dopamine, dobutamine, norepinephrine, propofol, fentanyl, heparin, and Nimbex. The patient has developed acute kidney injury, possibly related to ATN. In addition, the patient's ejection fraction of less than 20%. His prognosis is very poor. We'll have discussions with his at this point. Neurology has seen the patient. Cardiology is also involved in the care of this patient. We will continue to follow make recommendations where appropriate. Prognosis is very guarded. Plan dated 09/20/2020. Currently, the patient's manifesting signs and symptoms of multiorgan system failure. Currently, organ involvement with the heart, lungs, kidneys, and brain. The patient's on multiple drips, including dopamine, the beginning, norepinephrine, propofol, and fentanyl. The patient will get Reglan 10 mg 4 times a day, we will resume tube needs. Patient's currently on Zosyn 3.375 g every 12. Microbiology is negative. A PICC line will be placed. I will call the Luiza, give her an update. Overall prognosis is very poor. If she wants to continue life support, I would probably aspirin early trach and PEG tube placement. Plan dated 09/21/2020. Today, I had a very pelon discussion with the patient's , and daughter. The y removed the room on rounds. I gave them when I felt was a very honest assessment of their family member. I think the patient has an extremely poor prognosis given the events that took place on the day of his cardiac arrest. Very concerned about anoxic brain injury. On daily interruption of sedation, although the patient does move all 4 extremities, nothing purposeful is noted. I did tell the that I thought it was too early to give up on the patient. We'll continue to follow make recommendations were appropriate. In addition, the patient has very poor cardiac function, with an ejection fraction of less than 20%. Apparently, cardiology is also pain patient of the family. I think that's appropriate. The patient remains on D5W with sodium bicarbonate, propofol, dopamine, dobutamine, norepinephrine, and tube feeds. Plan dated 09/22/2020. The patient remains on the chemical ventilator. We been updating the daily. Blood gases are reasonable. The patient remains on a number drips including a sodium bicarbonate drip, propofol, dopamine, amiodarone, and dobutamine. Norepinephrine is been weaned off. The patient is on vital high protein at goal. No additional recommendations are made at this time. We will continue to follow and make suggestions where appropriate. The patient did have a daily interruption of sedation, with no improvement in his overall neurologic status. The was in the room, when we did this. Plan dated 09/23/2020. The patient remains on the mechanical ventilator. The patient's is updated on a daily basis. The patient was going to be comfort care yesterday, but because of some improvement neurologic function, the patient's changed her mind. Currently, he is on propofol, dobutamine, amiodarone, and nutrition. Dop amine has been discontinued. We will DC Zosyn. No hemodialysis today. The patient will be placed on a fentanyl drip if we cannot control the patient's respiratory rate and agitation just with propofol. Additional recommendations and suggestions are forthcoming. We will continue to follow and make recommendations where appropriate. Plan dated 09/24/2020. I told the nurse, that they could use Cleveprex, if the systolic blood pressures greater than 160 with a mean arterial pressures greater than 100. The patient will have hemodialysis today and afterwards, we will do a daily interruption of sedation. Because the patient was dyssynchronous with the mechanical ventilator, we went ahead and switch to the VC plus mode, with a targeted tidal volume of 500, and inspiratory time of 0.9 seconds. The patient remains on fentanyl drip, propofol drip, dobutamine drip, amiodarone drip, and is being nourished. Prognosis remains guarded. Additional recommendations and suggestions are forthcoming. We will continue to see the patient and make recommendations where appropriate. Plan dated 10/09/2020. Currently, the patient's doing much better. The pressure support yesterday was reduced from 15 to 10 cm water. The patient will have hemodialysis today. The plan is to eventually send the patient to a long-term acute care facility. This may happen later this week. After hemodialysis today, the patient is stable, we can try him on some trach. collar. Additional recommendations and suggestions are forthcoming. Prognosis is guarded. We'll continue to follow. Continue tube feedings. Plan dated 10/10/2020. The patient has been transitioned to tracheostomy collar. The patient's getting 35% oxygen. Last night, he was on pressure support of 10, and CPAP of 5. His saline IV can be discontinued. We'll discontinue the Zosyn as well. Recent cultures are negative. Prognosis remains guarded but overall, his clinical picture is significantly improved including his neurologic status. The plan is to get in to long-term acute care, once hemodialysis confined to 3 times a week. We will continue to follow and make recommendations where appropriate. Plan dated 10/11/2020. The patient had been on trach collar, during the daytime, and pressure support apparently last night, the patient may have aspirated. The patient was placed back on the volume assist control mode. Respiratory rate is much more normal. The patient still looks comfortable. The patient's currently on Zosyn. From my perspective, the patient could still be transferred to long-term acute care. A discharge summary has been done by the primary service. Neurologic status is much improved. Labs and x-rays are all reviewed. Prognosis is guarded even though he's made significant neurologic improvement. Time with Patient: Less than 30
--- NOTE | 2020-10-11 10:40 | P.PN ---
<Genesis Quan - Last Filed: 10/11/20 10:37> Subjective Progress Note Date: 10/11/20 CHIEF COMPLAINT: Respiratory failure HISTORY OF PRESENT ILLNESS: Patient is status post trach and PEG tube placement on 10/01/2020. Patient is lying in bed comfortably. He is scheduled for discharge to [facility] today. He denies any pain. He is tolerating his tube feedings. He's had no further bleeding from the tracheostomy site. He is having bowel movements. Afebrile WBC 7.1 hemoglobin 7.7 PHYSICAL EXAM: VITAL SIGNS: Reviewed. GENERAL: Well-developed in no acute distress. HEENT: No sclera icterus. Extraocular movements grossly intact. Moist buccal mucosa. Head is atraumatic, normocephalic. Tracheostomy site clean dry and intact ABDOMEN: Soft. Nondistended. Nontender. PEG tube site clean dry and intact NEUROLOGIC: Alert and oriented. Cranial nerves II through XII grossly intact. ASSESSMENT: 1. Respiratory failure status post tracheostomy placement 2. Severe protein calorie malnutrition status post PEG tube placement PLAN: -Patient is to be transferred to [facility] specialty today -Patient is stable for discharge from surgical standpoint -Continue tube feedings Physician Cylinder Block Mechanic note has been reviewed by physician. Signing provider agrees with the documented findings, assessment, and plan of care. Objective - Vital Signs Vital signs: Vital Signs Temp 98.4 F 10/11/20 08:00 Pulse 95 10/11/20 10:00 Resp 32 H 10/11/20 10:00 BP 137/93 10/11/20 10:00 Pulse Ox 100 10/11/20 10:00 Intake & Output 10/10/20 10/11/20 10/11/20 18:59 06:59 18:59 Intake Total 841 900 150 Output Total 4000 0 0 Balance -3159 900 150 Weight 140.9 kg Intake: IV 16 100 0.9 Normal Saline 6 Pressure Bag Piperacillin-Tazobactam 3 100 .375 gm In Sodium Chloride 0.9% 100 ml @ 25 mls/hr IVPB Q12HR [facility] Rx #:[id number] Sodium Chloride 0.9% 500 10 ml @ 10 mls/hr IV .Q24H JORDANA Rx#:[id number] Tube Feeding 550 700 100 Other 275 100 50 Output: Urine 0 0 0 Hemodialysis 4000 Other: Voiding Method Incontinent Incontinent Incontinent # Voids 0 ABP, PAP, CO, CI - Last Documented Arterial Blood Pressure 148/76 - Labs CBC & Chem 7: 10/11/20 03:59 10/11/20 03:59 Labs: Abnormal Lab Results - Last 24 Hours (Table) 10/11/20 10/11/20 Range/Units 03:59 03:59 RBC 2.41 L (4.30-5.90) m/uL Hgb 7.7 L (13.0-17.5) gm/dL Hct 24.7 L (39.0-53.0) % MCV 102.1 H (80.0-100.0) fL BUN 59 H (9-20) mg/dL Creatinine 4.28 H (0.66-1.25) mg/dL Glucose 117 H (74-99) mg/dL <Franklin Keenan - Last Filed: 10/11/20 13:33> Subjective As above. Patient doing well. No bleeding. Tolerating tube feeds. Apparently being transferred today. Follow-up in office. Objective - Vital Signs Vital signs: Vital Signs Temp 98.5 F 10/11/20 12:00 Pulse 104 H 10/11/20 13:00 Resp 26 H 10/11/20 13:00 BP 140/93 10/11/20 13:00 Pulse Ox 98 10/11/20 13:00 Intake & Output 10/10/20 10/11/20 10/11/20 18:59 06:59 18:59 Intake Total 841 900 380 Output Total 4000 0 0 Balance -3159 900 380 Weight 140.9 kg 136.4 kg Intake: IV 16 100 0.9 Normal Saline 6 Pressure Bag Piperacillin-Tazobactam 3 100 .375 gm In Sodium Chloride 0.9% 100 ml @ 25 mls/hr IVPB Q12HR [facility] Rx #:[id number] Sodium Chloride 0.9% 500 10 ml @ 10 mls/hr IV .Q24H JORDA[facility] Rx#:[id number] Tube Feeding 550 700 250 Other 275 100 130 Output: Urine 0 0 0 Hemodialysis 4000 Other: Voiding Method Incontinent Incontinent Incontinent # Voids 0 ABP, PAP, CO, CI - Last Documented Arterial Blood Pressure 148/76 - Labs CBC & Chem 7: 10/11/20 03:59 10/11/20 03:59 Labs: Abnormal Lab Results - Last 24 Hours (Table) 10/11/20 10/11/20 Range/Units 03:59 03:59 RBC 2.41 L (4.30-5.90) m/uL Hgb 7.7 L (13.0-17.5) gm/dL Hct 24.7 L (39.0-53.0) % MCV 102.1 H (80.0-100.0) fL BUN 59 H (9-20) mg/dL Creatinine 4.28 H (0.66-1.25) mg/dL Glucose 117 H (74-99) mg/dL Assessment and Plan (1) Acute respiratory failure Current Visit: Yes Status: Acute Code(s): J96.00 - ACUTE RESPIRATORY FAILURE, UNSP W HYPOXIA OR HYPERCAPNIA SNOMED Code(s): 95083700
--- NOTE | 2020-10-11 11:25 | PN ---
PROGRESS NOTE Mr. Alcala is a 59-year-old male who presented with cardiac arrest and evidence of acute myocardial infarction, underwent stenting of left circumflex, CAD, complicated post intervention course with acute renal failure, dialysis requiring prolonged intubation. He has a tracheostomy. He is in atrial fibrillation. He is awake and alert. He was on the trach collar during the night, he became more dyspneic earlier. He is back on the ventilator at this time and his rate is down. Hemodynamically, his blood pressure is stable. He has no chest discomfort. He is following commands. He seems awake and alert. He continues on amiodarone 200 mg twice a day, Eliquis 2.5 mg twice a day, Lipitor 40 mg daily, Plavix 75 mg daily, lisinopril 5 mg daily, metoprolol tartrate 50 mg twice a day. PHYSICAL EXAMINATION: Blood pressure 130/90 with a heart rate in the 90s. LUNGS: With some crackles, no wheezes. HEART: Irregular regular S1, S2. No S3. No rub. ABDOMEN: Soft, nontender. EXTREMITIES: No significant edema. LAB DATA: The BUN and creatinine 59, 4.28, potassium 3.8, hemoglobin of 7.7. IMPRESSION: 1. Status post myocardial infarction and cardiac arrest and stenting of the left circumflex. 2. Acute renal injury, on hemodialysis. 3. Severe cardiomyopathy. 4. Atrial fibrillation persistent at this time. 5. Respiratory failure, on tracheostomy. 6. LifeVest placement for the severe cardiomyopathy. RECOMMENDATION: From the cardiac standpoint, will continue present therapy. His dialysis schedule has been adjusted. We will continue to monitor his blood pressure and adjust his beta rhonda dose accordingly. Depending on his progress, further recommendation will be made. Once he is stable, he hopefully will be able to be transferred to [facility] to be able to have a slow weaning and extubation. MMODL / IJN: [id number] /
[2020-10-11 12:45] VITALS: TEMP 98.5
[2020-10-11] MEDS: FERROUS SULFATE ORAL ELIXIR 300 MG/5 ML CUP OG-TUBE SCH (12:45)
[2020-10-11 14:21] VITALS: BP 126/97; PULSE 88; RESP 28
--- NOTE | 2020-12-14 14:02 | CDI ---
There is documentation of "postoperative bleeding around the trach site secondary to his IV heparin". Additional clarification is requested. History/Risk Factors: Pt presented with a STEMI and cardiac arrest. He had an Impella inserted and was intubated. On 10/01 the patient had a tracheostomy placed. Per the discharge summary, the pt did "have some post-op bleeding around the trach site 2nd to his IV heparin which was changed to subQ heparin". Clinical Indicators: Per the discharge summary, the pt did "have some post-op bleeding around the trach site 2nd to his IV heparin which was changed to subQ heparin". Treatment: Heparin switched from IV to subQ, Eliquis was discontinued. PTT: 09/30 - 43.1 10/01 - 40.1 10/02 - 19.1 10/03 - 37.0 Can you please clarify the bleeding around the trach site? [ ] Bleeding secondary to coagulopathy secondary to anticoagulation [ ] Bleeding secondary to other etiology (please clarify) [ ] Other, please specify [ ] Unable to determine (Template Last Revised: May 2020) Bleeding secondary to coagulopathy secondary to anticoagulation MTDD
== END 2020-10-11 15:20 | DRG 3 ==
LOC: EC 01:28 → 2SICU 01:45
PROVIDERS: ADMIT Internal Medicine; ATTEND Internal Medicine
PROC: 0D9670Z Drainage of Stomach with Drainage Device, Via Natural or Artificial Opening (ICD-10-PCS; 2020-09-17)
PROC: 3E043XZ Introduction of Vasopressor into Central Vein, Percutaneous Approach (ICD-10-PCS; 2020-09-17)
PROC: 4A023N7 Measurement of Cardiac Sampling and Pressure, Left Heart, Percutaneous Approach (ICD-10-PCS; 2020-09-17 01:46)
PROC: 02HA3RZ Insertion of Short-term External Heart Assist System into Heart, Percutaneous Approach (ICD-10-PCS; 2020-09-17 01:46)
PROC: 5A0221D Assistance with Cardiac Output using Impeller Pump, Continuous (ICD-10-PCS; 2020-09-17 01:46)
PROC: B2111ZZ Fluoroscopy of Multiple Coronary Arteries using Low Osmolar Contrast (ICD-10-PCS; 2020-09-17 01:46)
PROC: 027034Z Dilation of Coronary Artery, One Artery with Drug-eluting Intraluminal Device, Percutaneous Approach (ICD-10-PCS; 2020-09-17 01:46)
PROC: 0BH18EZ Insertion of Endotracheal Airway into Trachea, Via Natural or Artificial Opening Endoscopic (ICD-10-PCS; 2020-09-17 01:46)
PROC: 5A1955Z Respiratory Ventilation, Greater than 96 Consecutive Hours (ICD-10-PCS; 2020-09-17 01:46)
PROC: 06HN33Z Insertion of Infusion Device into Left Femoral Vein, Percutaneous Approach (ICD-10-PCS; 2020-09-20)
PROC: 5A1D70Z Performance of Urinary Filtration, Intermittent, Less than 6 Hours Per Day (ICD-10-PCS; 2020-09-20)
PROC: 05HM33Z Insertion of Infusion Device into Right Internal Jugular Vein, Percutaneous Approach (ICD-10-PCS; 2020-09-28)
PROC: 0JH63XZ Insertion of Tunneled Vascular Access Device into Chest Subcutaneous Tissue and Fascia, Percutaneous Approach (ICD-10-PCS; 2020-09-28)
PROC: 5A1D70Z Performance of Urinary Filtration, Intermittent, Less than 6 Hours Per Day (ICD-10-PCS; 2020-09-28)
PROC: 0B110F4 Bypass Trachea to Cutaneous with Tracheostomy Device, Open Approach (ICD-10-PCS; principal; 2020-10-01 07:30)
PROC: 0DH63UZ Insertion of Feeding Device into Stomach, Percutaneous Approach (ICD-10-PCS; principal; 2020-10-01 07:30)
PROC: 3E0G76Z Introduction of Nutritional Substance into Upper GI, Via Natural or Artificial Opening (ICD-10-PCS; principal; 2020-10-01 07:30)
PROC: 03HY32Z Insertion of Monitoring Device into Upper Artery, Percutaneous Approach (ICD-10-PCS; 2020-10-05)
PROC: 4A133J1 Monitoring of Arterial Pulse, Peripheral, Percutaneous Approach (ICD-10-PCS; 2020-10-05)
PROC: 4A133B1 Monitoring of Arterial Pressure, Peripheral, Percutaneous Approach (ICD-10-PCS; 2020-10-05)
PROC: 5A09357 Assistance with Respiratory Ventilation, Less than 24 Consecutive Hours, Continuous Positive Airway Pressure (ICD-10-PCS; 2020-10-09)
DX: I21.3 ST elevation (STEMI) myocardial infarction of unspecified site (principal); I46.2 Cardiac arrest due to underlying cardiac condition; I49.01 Ventricular fibrillation; I50.21 Acute systolic (congestive) heart failure; J18.9 Pneumonia, unspecified organism; J96.01 Acute respiratory failure with hypoxia; K72.00 Acute and subacute hepatic failure without coma; N17.0 Acute kidney failure with tubular necrosis; N18.6 End stage renal disease; E43 Unspecified severe protein-calorie malnutrition; G92 Toxic encephalopathy; R57.0 Cardiogenic shock; G93.1 Anoxic brain damage, not elsewhere classified; E87.2 Acidosis; I13.2 Hypertensive heart and chronic kidney disease with heart failure and with stage 5 chronic kidney disease, or end stage renal disease; I48.19 Other persistent atrial fibrillation; J95.01 Hemorrhage from tracheostomy stoma; J98.11 Atelectasis; D62 Acute posthemorrhagic anemia; E87.1 Hypo-osmolality and hyponatremia; Q25.0 Patent ductus arteriosus; T82.49XA Other complication of vascular dialysis catheter, initial encounter; D68.32 Hemorrhagic disorder due to extrinsic circulating anticoagulants; Z99.2 Dependence on renal dialysis; Z20.822 Contact with and (suspected) exposure to COVID-19; E66.01 Morbid (severe) obesity due to excess calories; K76.1 Chronic passive congestion of liver; I25.5 Ischemic cardiomyopathy; I44.7 Left bundle-branch block, unspecified; E83.39 Other disorders of phosphorus metabolism; I99.8 Other disorder of circulatory system; D69.6 Thrombocytopenia, unspecified; E03.9 Hypothyroidism, unspecified; Z68.37 Body mass index [BMI] 37.0-37.9, adult; E83.51 Hypocalcemia; M19.90 Unspecified osteoarthritis, unspecified site; N14.1 Nephropathy induced by other drugs, medicaments and biological substances; T50.8X5A Adverse effect of diagnostic agents, initial encounter; E78.1 Pure hyperglyceridemia; E78.5 Hyperlipidemia, unspecified; E87.5 Hyperkalemia; T50.915A Adverse effect of multiple unspecified drugs, medicaments and biological substances, initial encounter; I25.10 Atherosclerotic heart disease of native coronary artery without angina pectoris; L30.9 Dermatitis, unspecified; N50.89 Other specified disorders of the male genital organs; R31.0 Gross hematuria; T45.515A Adverse effect of anticoagulants, initial encounter; Y71.2 Prosthetic and other implants, materials and accessory cardiovascular devices associated with adverse incidents; Z53.09 Procedure and treatment not carried out because of other contraindication; Z79.1 Long term (current) use of non-steroidal anti-inflammatories (NSAID); Z79.890 Hormone replacement therapy; Z79.899 Other long term (current) drug therapy
CPT/HCPCS: 31500; 33992; 36415; 36571; 36573; 36600; 43246; 70450; 71045; 71275; 74018; 74174; 76770; 76937; 77001; 80048; 80053; 80061; 80076; 81001; 82140; 82272; 82330; 82550; 82553; 82805; 83010; 83605; 83615; 83721; 83735; 83880; 84075; 84100; 84132; 84145; 84450; 84460; 84478; 84484; 85025; 85027; 85045; 85379; 85610; 85730; 86140; 86706; 87040; 87070; 87205; 87340; 87635; 90935; 92950; 93005; 93306; 93308; 93458; 93922; 94002; 94003; 94640; 95822; 96374; 96375; 99291

== ENCOUNTER 2022-06-17 08:54 | Day surgery (SDC) | payer BC ==
[2022-06-12 16:19] VITALS: BMI 33.9
[~2022-06-17 08:54] MED LIST: HYDROmorphone 0.5 MG/0.5 ML SYRINGE IVP PRN; ONDANSETRON 4 MG/2 ML VIAL IVP PRN; ceFAZolin 1 GM in SODIUM CHLORIDE 0.9% IRRIG BTL 250 ML IRRIGATION PRN
[2022-06-17 09:37] LABS: Glucose,Whole Blood 91 mg/dL (70-110)
[2022-06-17] MEDS: SODIUM CHLORIDE 0.9% 1,000 ML IV SCH (09:37)
[2022-06-17 09:48] LABS: Basophils % (A) 0 %; Eosinophils # (A) 0.2 k/uL (0-0.7); Eosinophils % (A) 3 %; HCT 50.9 % (39.0-53.0); HGB 16.8 gm/dL (13.0-17.5); Lymphocytes # (A) 1.9 k/uL (1.0-4.8); Lymphocytes % (A) 29 %; MCH 31.3 pg (25.0-35.0); MCV 94.8 fL (80.0-100.0); Mean Platelet Volume 8.4; Monocytes # (A) 0.4 k/uL (0-1.0); Monocytes % (A) 7 %; Neutrophils # (A) 3.7 k/uL (1.3-7.7); Neutrophils % (A) 57 %; Platelet Count 204 k/uL (150-450); RBC 5.37 m/uL (4.30-5.90); RDW 13.4 % (11.5-15.5); WBC 6.5 k/uL (3.8-10.6)
[2022-06-17] MEDS ORDERED: PROPOFOL 10 MG/ML 20 ML VIAL IV ONE (10:33)
[2022-06-17] MEDS ORDERED: MIDAZOLAM 2 MG/2 ML VIAL ONE (10:33)
[2022-06-17] MEDS ORDERED: fentaNYL (PF) 50 MCG/ML 2 ML AMP ONE (10:33)
[2022-06-17] MEDS ORDERED: KETAMINE 10 MG/ML 20 ML VIAL ONE (10:33)
[2022-06-17] MEDS ORDERED: IOPAMIDOL-370 100ML BTL INJ ONE (10:40)
[2022-06-17] MEDS ORDERED: LIDOCAINE 1% INJ 10MG/ML (20 ML MDV) ONE ×2 (11:02→11:29)
[2022-06-17] MEDS ORDERED: LIDOCAINE 1% INJ 10MG/ML (20 ML MDV) SQ ONE ×2 (11:18→11:26)
[2022-06-17] MEDS ORDERED: SODIUM CHLORIDE 0.9% 500 ML 500 ML IV ONE (14:00)
[2022-06-17] MEDS ORDERED: ACETAMINOPHEN TAB 325 MG TAB PO PRN (14:02)
[2022-06-17] MEDS: LACTATED RINGERS 1,000 ML IV SCH (14:52)
--- NOTE | 2022-06-17 14:57 | P.EPPROC ---
- EP Procedure Note Electrophysiology Procedure Note: Diagnosis Ischemic cardio myopathy, class II heart failure, chronic systolic heart failure CAD status post old CT Left bundle branch block Persistent atrial fibrillation Procedure LV/ biventricular ICD implantation Details Patient was brought to the EP lab in a fasting state. Written informed consent was obtained prior to the procedure. Conscious sedation provided by anesthesia team IV antibiotics administered. Local anesthesia administered. A 4 cm incision made in the pectoral area. Subfascial pocket made. Venous access obtained Venous sheaths placed. Leads placed in the right heart Atrial lead position the right atrial appendage. Patient was in atrial fibrillation, Medtronic model #5076, 52 cm in length lead positioned A. fib waves 6.8 mV, pacing impedance 532 ohms RV lead position in the RV apex. R waves 10.6 below, pacing impedance 513 ohms and pacing threshold 0.75 V at 0.4 ms. High-voltage impedance 72 ohms Left bundle pacing attempted. However we could not obtain a cord septal location to screw-in lead Multiple attempts were made along the septum. Therefore the Anthony sinus was cannulated LV lead positioned in the anterior LV vein. This was a screw-in LV lead, Medtronic model #4798, 88 7 was in length The distal poles resulted in diaphragmatic stimulation but the proximal poles of LV 2, 3 and 4 did not exhibit any diaphragmatic stimulus Biventricular pacemaker device connected to the leads and placed in the subfascial pocket Patient tolerated the procedure well without acute complications Device was programmed to 2 zones of therapy VT zone 176 beats a minute VF zone 214 beats a minute Pacemaker programmed to DDD with mode switch turned on low rate of 50 upper rate of 120 beats a minute His metoprolol dose was increased to 100 mg daily Amiodarone was added 200 mg daily Electrical cardioversion will be planned after 4 weeks of loading with amiodarone to promote biventricular pacing
--- NOTE | 2022-06-17 15:00 | P.PCN ---
Preoperative Diagnosis: Left upper extremity venogram 15 mL IV dye injected into the left arm Patent left axillary subclavian and cephalic veins. Plan Proceed with biventricular ICD implantation via the left axillary venous system
[2022-06-17] MEDS ORDERED: ACETAMINOPHEN IV (For NPO) 1,000 MG in EMPTY BAG 1 BAG IVPB ONE (15:30)
[2022-06-17] MEDS: METOPROLOL TARTRATE 25 MG TAB PO SCH (20:28)
[2022-06-17] MEDS: APIXABAN 5 MG TAB PO SCH (20:28)
[2022-06-17] MEDS: SACUBITRIL/VALSARTAN 24 MG-26 MG TABLET PO SCH (20:29)
[2022-06-18] MEDS: SODIUM CHLORIDE 0.9% 1,000 ML IV SCH (01:19)
[2022-06-18] MEDS: LACTATED RINGERS 1,000 ML IV SCH (05:10)
[2022-06-18] MEDS ORDERED: LEVOTHYROXINE 50 MCG TAB PO SCH (06:30)
[2022-06-18 06:46] VITALS: BP 131/88; PULSE 93; RESP 17; TEMP 98.4
--- NOTE | 2022-06-18 08:23 | XR ---
EXAMINATION TYPE: XR chest 1V portable DATE OF EXAM: 06/18/2022 6:50 AM COMPARISON: Chest radiographs from 10/11/2020 TECHNIQUE: XR chest 1V portable Portable AP radiograph of the chest. CLINICAL INDICATION:Male, 61 years old with history of Lead placement check; FINDINGS: Lungs/Pleura: There is no evidence of pleural effusion, focal consolidation, or pneumothorax. Pulmonary vascularity: Unremarkable. Heart/mediastinum: Cardiomediastinal silhouette is enlarged and stable. Three lead cardiac conduction device overlying the left hemithorax with lead tips projecting over the right ventricle, right atriu m and coronary sinus. Musculoskeletal: No acute osseous pathology. IMPRESSION: Left cardiac conduction device with leads in appropriate position.
[2022-06-18] MEDS ORDERED: SPIRONOLACTONE 25 MG TAB PO SCH (09:00)
[2022-06-18] MEDS ORDERED: DAPAGLIFLOZIN PROPANEDIOL 5 MG TABLET PO SCH (09:00)
[2022-06-18] MEDS ORDERED: ATORVASTATIN 40 MG TAB PO SCH (09:00)
[2022-06-18] MEDS: SACUBITRIL/VALSARTAN 24 MG-26 MG TABLET PO SCH (09:13)
[2022-06-18] MEDS: METOPROLOL TARTRATE 25 MG TAB PO SCH (09:14)
[2022-06-18] MEDS: APIXABAN 5 MG TAB PO SCH (09:14)
--- NOTE | 2022-06-18 09:22 | P.DS ---
Providers Date of admission: The patient is a 61-year-old male with past medical history of CAD and ischemic cardiomyopathy, who is currently admitted to the hospital for biventricular ICD upgrade. The patient tolerated the procedure well. Patient was interviewed lying comfortably in bed. Mild tenderness at device site. No chest pain or orthopnea. GENERAL: Well-appearing, well-nourished and in no acute distress. NECK: Supple without JVD or thyromegaly. LUNGS: Breath sounds clear to auscultation bilaterally. Respiration equal and unlabored. No wheezes, rales or rhonchi. HEART: Regular rate and rhythm without murmurs, rubs or gallops. S1 and S2 heard. EXTREMITIES: Normal range of motion, no edema. No clubbing or cyanosis. Peripheral pulses intact and strong. IMPRESSION: Multivessel coronary artery disease with prior myocardial infarction Ischemic cardiomyopathy Congestive heart failure, class II symptoms Status post biventricular upgrade PLAN: No change in medication regimen Patient may be discharged today Follow up with device clinic in one week Outpatient follow-up with primary painter maintenance Dr. Bentley I am dictating on behalf of Dr Michael Sharma's history/physical and assessment/plan. Attending physician: Michael hSarma Primary care physician: Kedar Paz Plan - Discharge Summary Discharge Rx Participant: Yes New Discharge Prescriptions: New Metoprolol Succinate [Toprol XL] 100 mg PO DAILY #90 tab Amiodarone [Cordarone] 200 mg PO DAILY #90 tab Discontinued hydrALAZINE HCL [Apresoline] 25 mg PO TID Metoprolol Tartrate [Lopressor] 50 mg PO BID tab No Action Levothyroxine Sodium [Synthroid] 50 mcg PO DAILY Spironolactone 12.5 mg PO DAILY Sacubitril/Valsartan [Entresto 24 mg-26 mg Tablet] 1 each PO BID Multivit-Min/FA/Lycopen/Lutein [Centrum Silver Men Tablet] 1 each PO DAILY Empagliflozin [Jardiance] 10 mg PO DAILY Pantoprazole Sodium 40 mg PO DAILY Apixaban [Eliquis] 5 mg PO BID Fruit/Veg Supplement 1 dose PO DAILY Cholecalciferol [Vitamin D3 (125 Mcg = 5000 Iu)] 250 mcg PO DAILY Atorvastatin Calcium 40 mg PO DAILY Discharge Medication List Levothyroxine Sodium [Synthroid] 50 mcg PO DAILY 09/17/20 [History] Apixaban [Eliquis] 5 mg PO BID 06/12/22 [History] Atorvastatin Calcium 40 mg PO DAILY 06/12/22 [History] Cholecalciferol [Vitamin D3 (125 Mcg = 5000 Iu)] 250 mcg PO DAILY 06/12/22 [History] Empagliflozin [Jardiance] 10 mg PO DAILY 06/12/22 [History] Fruit/Veg Supplement 1 dose PO DAILY 06/12/22 [History] Multivit-Min/FA/Lycopen/Lutein [Centrum Silver Men Tablet] 1 each PO DAILY 06/12/22 [History] Pantoprazole Sodium 40 mg PO DAILY 06/12/22 [History] Sacubitril/Valsartan [Entresto 24 mg-26 mg Tablet] 1 each PO BID 06/12/22 [History] Spironolactone 12.5 mg PO DAILY 06/12/22 [History] Amiodarone [Cordarone] 200 mg PO DAILY #90 tab 06/17/22 [Rx] Metoprolol Succinate [Toprol XL] 100 mg PO DAILY #90 tab 06/17/22 [Rx] Follow up Appointment(s)/Referral(s): Panda Bentley MD [STAFF PHYSICIAN] - 1 Week (Device clinic follow-up in 1 week Follow-up with Dr. Paula in 4 weeks) Activity/Diet/Wound Care/Special Instructions: PATIENT EDUCATION MATERIAL Instructions following a heart rhythm device implant. 1. Keep dressing DRY for 5 DAYS. You may cover the area with Saran or Cling Wrap, prior to a shower. 2. The dressing will be removed in the Device Clinic at [facility]. Absorbable sutures were used to close the wound. 3. Avoid raising the left arm above the shoulder level. 4 week restriction 4. Avoid arm movements, like backscratching, rubbing the head, or pulling on a cord. 4 weeks restriction 5. Gentle range of motion movements of the shoulder, closest to the incision should be performed to avoid a frozen shoulder. (Pendulum exercises of the shoulder) 6. The opposite arm may be used freely. 7. Avoid driving for 7 days. 8. Avoid activities such as golfing, swimming, weed whacking, lifting more than 10 pounds weight, bowling, gymnastics and weight training/lifting. (6 weeks restriction) 9. Activities such as wood chopping with an axe, pull-ups in the gymnasium, power lifting, arc-welding, being close to home induction cooktops will always be a problem. 10. Arm sling is only a reminder not to raise the arm above the head. You do not need to keep the arm completely immobilized. Your free to move the arm and use it and for normal activities. In case of any problems, please call [facility], [place], @ [phone], Attention: Device Clinic Device clinic follow-up in 5 days Follow-up with primary painter maintenance in 2-3 months Stop metoprolol tartrate Start metoprolol succinate 100 mg by mouth daily Start amiodarone 200 mg by mouth daily Discharge Disposition: HOME SELF-CARE
== END 2022-06-18 13:38 | disposition home or self-care (01) ==
LOC: CATHEP 08:54 → 6NMEDSUR 13:56 → CATHEP 06-18 13:38
PROVIDERS: ATTEND Internal Medicine Clinical Cardiac Electrophysiology
DX: I50.22 Chronic systolic (congestive) heart failure (principal); I25.10 Atherosclerotic heart disease of native coronary artery without angina pectoris; I25.5 Ischemic cardiomyopathy
CPT/HCPCS: 33225; 33249; 80048; 85025; 71045; C1769 ×4; C1882; C1892 ×2; C1730; C1887; C1898; C1900; C1895; J2250; J0690 ×2; J2001; J3010; J0131; J2704; Q9967

== ENCOUNTER → 2023-10-16 | Day surgery (SDC) | payer BC ==
[2023-10-14 15:54] VITALS: BMI 34.3
[~2023-10-16] MED LIST changes: -HYDROmorphone 0.5 MG/0.5 ML SYRINGE IVP PRN; +LIDOCAINE 1% INJ 10MG/ML (20 ML MDV) ONE; -ONDANSETRON 4 MG/2 ML VIAL IVP PRN; +PROPOFOL 10 MG/ML 20 ML VIAL IV ONE; -ceFAZolin 1 GM in SODIUM CHLORIDE 0.9% IRRIG BTL 250 ML IRRIGATION PRN
[2023-10-16] MEDS: IV FLUID CONTINUATION 1,000 ML IV ONE ×2 (09:14→09:55)
[2023-10-16] MEDS: BENZOCAINE SPRAY 1 CAN TOPICAL ONE (10:10)
[2023-10-16 10:15] LABS: African American GFR (CKD) >90 (>60 ml/min/1.73 sqM); Anion Gap 10 mmol/L; Blood Urea Nitrogen 22 mg/dL (9-20); Calcium 9.3 mg/dL (8.4-10.2); Carbon Dioxide 20 mmol/L (22-30); Chloride 111 mmol/L (98-107); Glucose 90 mg/dL (74-99); Non-African American GFR(CKD) 85 (>60 ml/min/1.73 sqM); Sodium 141 mmol/L (137-145)
--- NOTE | 2023-10-16 10:21 | P.PCN ---
Date of Procedure: 10/16/23 Operative Findings: TRANSESOPHAGEAL ECHOCARDIOGRAM PLUGGER: MARJ CRANDALL MD, RPVI INDICATION: Rule out intracardiac thrombus before cardioversion SEDATION: Conscious sedation COMPLICATION: None LEVEL OF SEDATION The procedure was performed using propofol PROCEDURE DESCRIPTION: After obtaining an informed consent, the patient was brought to recovery room. Pulse oximetry and heart monitors were attached to the patient. The patient throat was sprayed using lidocaine. The patient was turned into left lateral position. After that a bite guard was placed. After an appropriate conscious sedation was initiated, the transesophageal echocardiogram was advanced through a bite guard into the mid esophagus. A 2-D echocardiogram images, color Doppler images, continuous wave images, pulse-wave images, of various cardiac structure were performed. After that the transesophageal echocardiogram probe was advanced into the stomach and fixed to obtain transgastric view was. The probe was brought into the mid esophagus. Inter-atrial septum was interrogated using 2D images, color Doppler images, and then contrast study. After that transesophageal echocardiogram was withdrawn out and upon withdrawing the descending thoracic aorta all the way up to the arch was evaluated. CONCLUSION: 1. Intact left atrial appendage and intact interatrial septum 2. Impaired LV function with EF between 35 to 40% with anterior hypokinesia 3. Overall normal intracardiac valves 4. No evidence of pericardial effusion
--- NOTE | 2023-10-16 10:21 | P.PCN ---
Date of Procedure: 10/16/23 Operative Findings: Cardioversion Report Performing physician Panda Bentley M.D. Procedure performed Successful cardioversion of atrial fibrillation to normal sinus mechanism using 200 J at first attempt Indication Symptomatic atrial fibrillation Complication None Level of sedation The procedure was performed under deep sedation using propofol with COATER SMOKING PIPE in the room Procedure description After obtaining an informed consent the patient was brought to the recovery room. Sedation was introduced using propofol with COATER SMOKING PIPE in the room. Subsequently the patient cardioverted from atrial fibrillation to normal sinus mechanism using 200 J and first attempt Conclusion Successful cardioversion of atrial fibrillation to normal sinus mechanism using 200 J Postprocedure management Continue the current medical regimen Continue oral anticoagulation Follow-up with the patient
[2023-10-16 10:34] VITALS: TEMP 97.5
[2023-10-16 11:10] VITALS: RESP 16
[2023-10-16 11:33] VITALS: PULSE 63
[2023-10-16 11:48] VITALS: BP 155/88
== END ==
LOC: OR 08:50
PROVIDERS: ATTEND Internal Medicine Interventional Cardiology
DX: I48.11 Longstanding persistent atrial fibrillation (principal); I25.5 Ischemic cardiomyopathy; I38 Endocarditis, valve unspecified; I49.01 Ventricular fibrillation; I11.0 Hypertensive heart disease with heart failure; I50.9 Heart failure, unspecified; E78.5 Hyperlipidemia, unspecified; I25.10 Atherosclerotic heart disease of native coronary artery without angina pectoris; Z95.5 Presence of coronary angioplasty implant and graft; K21.9 Gastro-esophageal reflux disease without esophagitis; Z95.810 Presence of automatic (implantable) cardiac defibrillator; F17.200 Nicotine dependence, unspecified, uncomplicated; Z79.84 Long term (current) use of oral hypoglycemic drugs; Z79.890 Hormone replacement therapy; Z79.899 Other long term (current) drug therapy; Z79.01 Long term (current) use of anticoagulants
CPT/HCPCS: 93312; 92960; 80048; 93320; 93325; J2001; J2704